=== PATIENT | male | born 1945 | race Caucasian/White ===

== ENCOUNTER 2018-10-01 07:56 | Outpatient (CLI) | payer MEDICARE | END 2018-10-01 07:57 | disposition critical access hospital (66) | LOC: EMS 07:56 | PROVIDERS: ATTEND Surgery | DX: R41.82 Altered mental status, unspecified (principal) | CPT/HCPCS: A0425; A0429 ==

== ENCOUNTER 2018-10-01 08:13 | Inpatient (IN) | payer MEDICAID, MEDICARE ==
[2018-10-01] MEDS ORDERED: TETANUS/DIPHTHERIA/PERTUSSIS 0.5 ML SYRINGE IM ONE (08:23)
[2018-10-01] MEDS ORDERED: LORazepam 2 MG/ML VIAL ONE (08:40)
[2018-10-01] MEDS ORDERED: LORazepam 2 MG/ML VIAL IVP STA (08:56)
--- NOTE | 2018-10-01 09:15 | ED Physician Documentation ---
PD HPI SEIZURE - Stated complaint Stated Complaint: GLF, R EYE LAC - Chief complaint Chief Complaint: Neuro - History obtained from History obtained from: Patient, Family (Nephew), EMS - History of Present Illness Timing - onset: Today (Just prior to arrival.) Witnessed: Witnessed (by nephew.) Number of seizures: Single, Lasted minutes (1) Description of seizure activity: Generalized, Postictal Injury during seizure: Fell, Head injury (eyebrow laceration) History of seizures: Known seizure disorder - Additional information Additional information: The patient is a 73-year-old male with a history of seizure disorder, on Keppra, who was found seizing this morning with generalized tonic-clonic activity after his nephew heard a thud in the bathroom. The patient had fallen to the floor, and was wedged between the commode and the bathtub,, with bleeding from a wound to his eyebrow. His nephew states the seizure resolved within 1 minute. When paramedics arrived they found the patient post ictal. There was no urinary incontinence. It is unknown whether the patient has been taking his Keppra. He was recently moved to [facility] from [place] by family. He has a history of drinking alcohol, but his nephew states he has not had alcohol recently. Review of his medical records reveals emergency department visit in 2016 for seizure. He had not been taking his Keppra at that time. Review of Systems Unable to obtain: Other (post ictal) Neurologic: reports: Seizure, Head injury PD PAST MEDICAL HISTORY - Past Medical History Past Medical History: Yes Neuro: Seizure disorder - Present Medications Home Medications: Ambulatory Orders Medication Instructions Recorded Confirmed Simvastatin 0 mg PO 04/17/16 levETIRAcetam [Keppra] 500 mg 04/17/16 Aspirin 0 mg PO 10/01/18 - Allergies Allergies/Adverse Reactions: Allergies Allergy/AdvReac Type Severity Reaction Status Date / Time No Known Drug Allergies Allergy Verified 10/01/18 08:24 - Social History Does the pt smoke?: Yes Smoking Status: Current every day smoker Substance Use and Type: Marijuana PD ED PE NORMAL - Vitals Vital signs reviewed: Yes (hypertensive) - General General: Well developed/nourished, Other (Drowsy and confused, consistent with being post ictal.) - HEENT HEENT: PERRL, EOMI, Moist mucous membranes, Other (3 cm lac right eyebrow.) - Neck Neck: No bony TTP, Other (In C-spine collar.) - Cardiac Cardiac: RRR - Respiratory Respiratory: No respiratory distress, Clear bilaterally - Abdomen Abdomen: Soft, Non tender - Back Back: No spinal TTP - Derm Derm: No rash - Extremities Extremities: No tenderness to palpate, No edema - Neuro Neuro: Other (Drowsy and confused, consistent with postictal state. Moving all extremities. Has a tendency to gaze to the right, but will look to the left.) Eye Opening: Spontaneous Motor: Obeys Commands Verbal: Confused GCS Score: 14 Results - Vitals Vitals: Vital Signs - 24 hr 10/01/18 10/01/18 10/01/18 08:15 08:19 09:00 Temperature 35.9 C L Heart Rate 91 104 H Respiratory 20 20 Rate Blood Pressure 168/108 H 168/108 H 174/99 H O2 Saturation 96 97 10/01/18 10/01/18 10/01/18 09:24 09:30 10:00 Temperature Heart Rate 99 104 H 92 Respiratory 16 20 18 Rate Blood Pressure 174/99 H 176/92 H 156/94 H O2 Saturation 94 96 95 10/01/18 10/01/18 10/01/18 10:30 11:00 11:30 Temperature Heart Rate 92 96 96 Respiratory 18 16 20 Rate Blood Pressure 174/100 H 167/92 H O2 Saturation 98 96 10/01/18 12:30 Temperature Heart Rate 90 Respiratory 20 Rate Blood Pressure 160/88 H O2 Saturation 96 Oxygen O2 Source Room air - EKG (time done) 09:02 Rate: Rate (enter#) (104) Rhythm: Sinus tachycardia, Other (Incomplete IVCD.) [place]: RAD Intervals: Normal IN QRS: Normal Ischemia: Normal ST segments Computer interpretation: Agree with computer - Labs Labs: Laboratory Tests 10/01/18 10/01/18 10/01/18 08:59 08:59 08:59 WBC 30.1 H RBC 4.52 L Hgb 14.5 Hct 44.5 MCV 98.4 H MCH 32.1 H MCHC 32.7 RDW 13.4 Plt Count 326 MPV 9.6 Neut # (Auto) Not Reportable Lymph # (Auto) Not Reportable [place] # (Auto) Not Reportable Eos # (Auto) Not Reportable Baso # (Auto) Not Reportable Absolute Nucleated RBC Not Reportable Total Counted 100 Band Neuts % (Manual) 5 Abnorm Lymph % (Manual) 0 Nucleated RBC % Not Reportable Neutrophils # (Manual) 27.1 H Lymphocytes # (Manual) 0.9 L Monocytes # (Manual) 2.1 H Eosinophils # (Manual) 0.0 Basophils # (Manual) 0.0 Differential Comment MANUAL DIFFERENTIAL WBC Morphology 1+ VACUOLATION Sodium 140 Potassium 3.5 Chloride 105 Carbon Dioxide 14 L Anion Gap 21.0 H BUN 23 H Creatinine 1.5 H Estimated GFR (MDRD) 46 L Glucose 177 H Calcium 9.1 Magnesium 2.7 Total Bilirubin 0.8 AST 38 ALT 22 Alkaline Phosphatase 107 Total Protein 8.0 Albumin 4.5 Globulin 3.5 Albumin/Globulin Ratio 1.3 Lipase 42 Free T4 Free T3 pg/mL Urine Color Urine Clarity Urine pH Ur Specific [place] Urine Protein Urine Glucose (UA) Urine Ketones Urine Occult Blood Urine Nitrite Urine Bilirubin Urine Urobilinogen Ur Leukocyte Esterase Urine RBC Urine WBC Ur Squamous Epith Cells Urine Crystals Amorphous Sediment Urine Bacteria Urine Casts Urine Mucus Ur Microscopic Review Urine Culture Comments Ethyl Alcohol < 5.0 10/01/18 10/01/18 10/01/18 08:59 08:59 09:05 WBC RBC Hgb Hct MCV MCH MCHC RDW Plt Count MPV Neut # (Auto) Lymph # (Auto) [place] # (Auto) Eos # (Auto) Baso # (Auto) Absolute Nucleated RBC Total Counted Band Neuts % (Manual) Abnorm Lymph % (Manual) Nucleated RBC % Neutrophils # (Manual) Lymphocytes # (Manual) Monocytes # (Manual) Eosinophils # (Manual) Basophils # (Manual) Differential Comment WBC Morphology Sodium Potassium Chloride Carbon Dioxide Anion Gap BUN Creatinine Estimated GFR (MDRD) Glucose Calcium Magnesium Total Bilirubin AST ALT Alkaline Phosphatase Total Protein Albumin Globulin Albumin/Globulin Ratio Lipase Free T4 0.81 Free T3 pg/mL 3.35 Urine Color YELLOW Urine Clarity HAZY Urine pH 5.0 Ur Specific [place] >=1.030 H Urine Protein 30 H Urine Glucose (UA) 250 H Urine Ketones TRACE Urine Occult Blood SMALL H Urine Nitrite NEGATIVE Urine Bilirubin NEGATIVE Urine Urobilinogen 0.2 (NORMAL) Ur Leukocyte Esterase NEGATIVE Urine RBC 0-5 Urine WBC 0-3 Ur Squamous Epith Cells RARE Squamous Urine Crystals >50 Uric Acid Amorphous Sediment Few Urine Bacteria Few Urine Casts 6-10 Granular Casts Urine Mucus Few Strands Ur Microscopic Review INDICATED Urine Culture Comments NOT INDICATED Ethyl Alcohol - Rads (name of study) Head CT Radiology: Prelim report reviewed, EMP read contemporaneously, See rad report (No acute intracranial hemorrhage. No displaced skull fracture. Swelling and hematoma consistent with acute injury in the superficial soft tissues anteriorly on the right. 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 No: FB identified Skin layer closure: Nylon, Size #-0 - enter number (5), Sutures - enter # (6) Other: Patient tolerated well, No complications, Neurovascular intact, Dressing applied, Tetanus booster given Complexity: Simple PD MEDICAL DECISION MAKING - ED course Complexity details: reviewed old records, reviewed results, re-evaluated patient, considered differential, d/w patient, d/w foreign law consultant ED course: The patient's presentation is significant for seizure with head injury from falling in the bathroom. It is unclear whether he fell first and then had a seizure, or had a seizure and then fell. His head CT reveals no evidence of acute intracranial injury or skull fracture. Cervical spine CT reveals no evidence of acute C-spine fracture. The patient has a history of seizure disorder, on Keppra, but it is uncertain whether he has been taking his medication as prescribed. Review of his records reveals that he has a history of poor compliance. According to his nephew he has a history of alcohol use, but it is unknown when his last alcohol intake was. Treatment in the emergency department included administration of Ativan 1 mg IV after the patient had a recurrent seizure while in the emergency department. Keppra 500 mg was administered IV. The wound on his right eyebrow was repaired with 5-0 nylon simple sutures after local anesthetic with lidocaine with epinephrine, and thorough cleaning of the wound. I discussed his condition with Dr. Arndt who accepts him for further evaluation and treatment. Departure - Departure Disposition: [facility] DC/Xfer Clinical Impression: Seizure Fall Qualifiers: Encounter type: initial encounter Qualified Code(s): W19.XXXA - Unspecified fall, initial encounter Laceration of eyebrow Qualifiers: Encounter type: initial encounter Laterality: right Qualified Code(s): S01.111A - Laceration without foreign body of right eyelid and periocular area, initial encounter Condition: Stable Discharge Date/Time: 10/01/18 14:09
[2018-10-01 09:16] LABS: BASOPHILS % (AUTO) 0.4 %; HGB - HEMOGLOBIN 14.5 g/dL (14.0-18.0); LYMPHOCYTES % (AUTO) 4.5 %; MEAN CORPUSCULAR HEMOGLOBIN 32.1 pg (27.0-31.0); MEAN CORPUSCULAR HGB CONC 32.7 g/dL (32.0-36.0); MEAN CORPUSCULAR VOLUME 98.4 fL (80.0-94.0); MEAN PLATELET VOLUME 9.6 fL (7.4-11.4); MONOCYTES % (AUTO) 4.6 %; NEUTROPHILS % (AUTO) 90.5 %; PLT - PLATELET COUNT 326 10^3/uL (130-450); RED BLOOD COUNT 4.52 10^6/uL (4.70-6.10); RED CELL DISTRIBUTION WIDTH 13.4 % (12.0-15.0); WHITE BLOOD COUNT 30.1 x10^3/uL (4.8-10.8)
[2018-10-01 09:26] LABS: ABNORMAL LYMPHS % (MANUAL) 0 %
[2018-10-01 09:28] LABS: BILIRUBIN,URINE NEGATIVE (NEGATIVE); GLUCOSE, URINE (UA) 250 mg/dL (NEGATIVE); KETONES,URINE (UA) TRACE mg/dL (NEGATIVE); LEUKOCYTE ESTERASE, URINE NEGATIVE (NEGATIVE); NITRITE,URINE NEGATIVE (NEGATIVE); OCCULT BLOOD,URINE SMALL (NEGATIVE); PROTEIN,URINE 30 mg/dL (NEGATIVE); UROBILINOGEN,URINE 0.2 (NORMAL) E.U./dL (NORMAL)
[2018-10-01 09:29] LABS: CLARITY,URINE HAZY (CLEAR)
--- NOTE | 2018-10-01 09:39 | CT Report ---
Reason: Fall with head injury and seizures Procedure Date: 10/01/2018 Accession Number: [id number] / [id number] Procedure: CT - Cervical Spine W/O CPT Code: FULL RESULT: EXAM: CT CERVICAL SPINE WITHOUT CONTRAST DATE: 10/01/2018 08:50 AM. HISTORY: Pain post injury after a fall. Seizure. COMPARISONS: No prior cervical spine CT. TECHNIQUE: Thin-section axial images were acquired of the cervical spine without contrast. Post-processing: Coronal and sagittal reformats. Other: None. In accordance with CT protocol optimization, one or more of the following dose reduction techniques were utilized for this exam: automated exposure control, adjustment of mA and/or KV based on patient size, or use of iterative reconstructive technique. FINDINGS: Alignment: 2 mm degenerative anterolisthesis of C5 on C6. Cervical lordosis straightening. Mild kyphotic angulation at C6-C7. Bones: No acute fracture or vertebral body collapse. Diffuse chronic hypertrophic degenerative changes. Interspace Levels/Facets: C1-C2: Moderate to marked hypertrophic degenerative changes around the odontoid process. Soft tissue degenerative pannus is present along the dorsum of the odontoid. There are a few chronic degenerative lucencies of the odontoid process also. Chronic degenerative narrowing of the atlantodental interval. Unremarkable appearing atlantooccipital articulations. At least mild degenerative central canal stenosis. C2-C3: Moderate degenerative disk disease. Mild to moderate left worse than right facet arthropathy. Multifocal degenerative marginal spurring. The osseous contours of the central canal are maintained. Bony foraminal stenosis and deformity is mild on the right but at least moderate if not severe on the left. These findings appear chronic. Small vacuum disk. C3-C4: Chronic moderate severe degenerative disk disease. Bulky anterior spinal calcification. The disk space anteriorly appears fused. Severe facet arthropathy on the left, the left facet joint may be fused. Bony foraminal stenosis is mild on the right but severe on the left. The osseous contours of the central canal are maintained. C4-C5: Mildly narrowed disk space. Bulky anterior marginal spurring. Mild right and moderate left facet arthropathy. The osseous contours of the central canal are maintained. Bony foraminal stenosis is more severe on the left than the right. C5-C6: Moderate degenerative disk disease. Bulky anterior osteophytic spurring. Minimal to mild posterior osteophytic spurring. Focal thickening and ossification of the posterior longitudinal ligament is present in the midline at the posterior margin of the C6 vertebral body creating a mild degree of focal central canal stenosis. Bony foraminal stenosis is mild. C6-C7: Solid chronic intervertebral disk space bony fusion. The osseous contours of the central canal are maintained. Chronic-appearing bony foraminal stenosis bilaterally, mild on the left and moderate to severe on the right. C7-T1: Chronic moderate to severe degenerative disk disease. Anterior and posterior marginal spurring. Uncinate process hypertrophy with moderate bilateral foraminal stenosis. Minimal facet arthropathy. T1-T2: Moderate to marked chronic degenerative disk disease. Prominent anterior marginal spurring. Uncinate process hypertrophy right greater than left. Patent central canal. Bony foraminal stenosis is mild to moderate on the left and moderate to severe on the right. T2-T3: Moderately prominent chronic degenerative changes. Patent bony central canal. Moderate to marked chronic bilateral bony foraminal stenosis. Musculature: Normal. No fatty atrophy. Other: Clear lung apices. No focal prevertebral edema. Note that the soft tissues of the posterior pharynx are indented by bulky osteophytes at C4-C5 and C5-C6. IMPRESSION: 1. No acute fracture or dislocation. 2. 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 [facility]
--- NOTE | 2018-10-01 09:39 | CT Report ---
Reason: Fall with head injury; seizure Procedure Date: 10/01/2018 Accession Number: [id number] / [id number] Procedure: CT - Head W/O CPT Code: FULL RESULT: EXAM: CT HEAD EXAM DATE: 10/01/2018 08:43 AM. CLINICAL HISTORY: Pain post injury after a fall. Seizure. COMPARISON: HEAD W/O 10/01/2018 8:34 AM HEAD W/O 04/17/2016 4:43 PM. TECHNIQUE: Multiaxial CT images were obtained from the foramen magnum to the vertex. Reformats: Sagittal and coronal. IV contrast: None. In accordance with CT protocol optimization, one or more of the following dose reduction techniques were utilized for this exam: automated exposure control, adjustment of mA and/or KV based on patient size, or use of iterative reconstructive technique. FINDINGS: Superficial soft tissue swelling and edema with probable hematoma at and above the level of the right orbit. This is consistent with recent injury. No acute paranasal sinus or mastoid fluid opacity. No displaced fracture. No CT evidence for acute intracranial hemorrhage. No mass effect or midline shift. No hydrocephalus. Stable appearing cerebral volume loss, likely from aging. Again seen are findings of prominent multifocal hypoattenuation of the brain including the deep brain structures consistent with potentially progressive chronic small vessel ischemic disease with multiple lacunar infarcts. Chronic arterial atherosclerotic calcifications. IMPRESSION: 1. No acute intracranial hemorrhage. 2. No displaced skull fracture. 3. Swelling and hematoma consistent with acute injury in the superficial soft tissues anteriorly on the right. 4. 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 [facility]
[2018-10-01 09:41] LABS: AMORPHOUS SEDIMENT,UR Few /LPF; BACTERIA,URINE Few /HPF (None Seen); CRYSTALS,URINE >50 Uric Acid /LPF; MUCUS,URINE Few Strands; RBC,URINE 0-5 /HPF (0-5); SQUAMOUS EPITHELIAL CELL,UR RARE Squamous (<= Few)
[2018-10-01 09:51] LABS: BAND NEUTROPHILS % (MANUAL) 5 %; DIFFERENTIAL COMMENT MANUAL DIFFERENTIAL; LYMPHOCYTES # (MANUAL) 0.9 10^3/uL (1.5-3.5); LYMPHOCYTES % (MANUAL) 3 %; MONOCYTES # (MANUAL) 2.1 10^3/uL (0.0-1.0); NEUTROPHILS # (MANUAL) 27.1 10^3/uL (1.5-6.6); NEUTROPHILS % (MANUAL) 85 %
[2018-10-01] MEDS ORDERED: BACITRACIN OINT TOP ONE (09:53)
[2018-10-01 10:00] LABS: ALBUMIN 4.5 g/dL (3.2-5.5); ALBUMIN/GLOBULIN RATIO 1.3 (1.0-2.2); BILIRUBIN,TOTAL 0.8 mg/dL (0.2-1.0); CALCIUM 9.1 mg/dL (8.5-10.3); CREATININE 1.5 mg/dL (0.6-1.2)
[2018-10-01] MEDS ORDERED: levETIRAcetam INJ 500 MG in SODIUM CHLORIDE 0.9% 100ML 100 ML IV STA (11:41)
[2018-10-01] MEDS ORDERED: SODIUM CHLORIDE FLUSH 0.9% 10 ML SYRINGE IVP PRN (12:49)
[2018-10-01 13:43] LABS: INR 1.1 (0.8-1.2); PT - PROTHROMBIN TIME 12.5 secs (9.9-12.6)
--- NOTE | 2018-10-01 14:08 | HISTORY & PHYSICAL EXAMINATION ---
Chief Complaint - Chief Complaint Chief Complaint: Witnessed seizures Stroke/TIA/Neuro Template - Admitted From Admitted from: ED - History Obtained From Records Reviewed: RN notes reviewed History obtained from: Patient, Family, Other (Dr. Madrigal) Exam limitations: Clinical condition (post-ictal) - History of Present Illness Problem Location Description: Neuro Severity at the worst: reports: Mild Symptom Quality: reports: Slurred speech, Other (post-ictal) HPI Comment/Other: The patient is a 73-year-old male with a history of seizure disorder, on Keppra, who was found seizing this morning with generalized tonic-clonic activity after his nephew heard a thud in the bathroom. The patient had fallen to the floor, and was wedged between the commode and the bathtub,, with bleeding from a wound to his eyebrow. His nephew states the seizure resolved within 1 minute. When paramedics arrived they found the patient post ictal. There was no urinary incontinence. It is unknown whether the patient has been taking his Keppra. He was recently moved to [facility] from [place] by family. He has a history of drinking alcohol, but his nephew states he has not had alcohol recently. Review of his medical records reveals emergency department visit in 2016 for seizure. He had not been taking his Keppra at that time. On initial exam patient was post-ictal and was a poor historian. 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 Will place in obs/tele with neuro checks and start IV keppra and CIWA protocol, IV thiamine and labs to follow. PMH/PSH - Past Medical History Neuro: positive: Seizure disorder Social & Family Hx - Social History Does the pt smoke?: Yes Smoking Status: Current every day smoker Substance Use and Type: Marijuana Meds/Allgy - Home Medications Home Medications: Ambulatory Orders Medication Instructions Recorded Confirmed Simvastatin 0 mg PO 04/17/16 levETIRAcetam [Keppra] 500 mg 04/17/16 Aspirin 0 mg PO 10/01/18 - Allergies Allergies/Adverse Reactions: Allergies Allergy/AdvReac Type Severity Reaction Status Date / Time No Known Drug Allergies Allergy Verified 10/01/18 08:24 Review of Systems - Constitutional Constitutional: denies: Fatigue, Fever, Chills, Malaise, Poor appetite - Eyes Eyes: denies: Pain, Irritation, Amaurosis, Field loss - Ears, Nose & Throat Ears, Nose & Throat: denies: Ear pain, Hearing loss, Tinnitus, Vertigo, Sore throat - Cardiovascular Cariovascular: denies: Irregular heart rate, Palpitations, Chest pain, Edema, Lightheadedness, Syncope, Exertional dyspnea - Respiratory Respiratory: denies: Cough, Sputum production, Wheezing, Snoring, Hemoptysis - Gastrointestinal Gastrointestinal: denies: Abdominal pain, Constipation, Black stools, Bloody stools, Reflux/heartburn - Genitourinary Genitourinary: denies: Dysuria, Frequency, Urgency, Hematuria - Musculoskeletal Musculoskeletal: denies: Muscle pain, Back pain, Muscle aches, Joint swelling - Integumentary Integumentary: denies: Rash, Pruritis, Lesions, Dryness, Lumps - Neurological Neurological: reports: Seizures. denies: General weakness, Focal weakness, Headache, Dizziness, Memory problems - Psychiatric Psychiatric: denies: Depression, Anxiety, Suicidal, Hallucinations, Homicidal - Endocrine Endocrine: denies: Polyuria, Polydypsia, Intolerance to cold - Hematologic/Lymphatic Hematologic/Lymphatic: denies: Anemia - All Other Systems All Other Systems: reports: Reviewed and negative Prior Level of Functionality: Previously independent with ADLs' Exam - Vital Signs Reviewed Vital Signs: Yes Vital Signs: Vital Signs x48h Temp Pulse Resp BP Pulse Ox 10/01/18 11:30 96 20 10/01/18 11:00 96 16 167/92 H 96 10/01/18 10:30 92 18 174/100 H 98 10/01/18 10:00 92 18 156/94 H 95 10/01/18 09:30 104 H 20 176/92 H 96 10/01/18 09:24 99 16 174/99 H 94 10/01/18 09:00 104 H 20 174/99 H 97 10/01/18 08:19 35.9 C L 91 20 168/108 H 96 10/01/18 08:15 168/108 H - Physical Exam General Appearance: positive: No acute distress, Lethargic (Post-ictal), Other Eyes Bilateral: positive: Normal inspection, PERRL, Conjunctivae nml ENT: positive: ENT inspection nml, Pharynx nml, No signs of dehydration Neck: positive: Nml inspection, Thyroid nml, No JVD, Trachea midline. negative: Thyromegaly, Kernig's sign, Brudzinski's sign, Carotid bruit Respiratory: positive: Chest non-tender, No respiratory distress, Breath sounds nml Cardiovascular: positive: Regular rate & rhythm, No murmur, No gallop. negative: Irregularly irregular, JVD present, Gallop/S4 Peripheral Pulses: positive: 2+ Abdomen: positive: Non-tender, No organomegaly, Nml bowel sounds, No distention. negative: Tenderness, Hepatomegaly, Splenomegaly Back: positive: Nml inspection Skin: positive: Color nml, No rash, Warm, Dry, Cyanosis. negative: Pallor Extremities: positive: Non-tender, Full ROM, Nml appearance, No pedal edema. negative: Pedal edema, Joint swelling Neurologic/Psychiatric: positive: CN's nml (2-12), Weakness, Slurred/abnml speech Results - Lab Results Lab results reviewed: Yes Fish Bones: 10/01/18 08:59 10/01/18 08:59 Other Lab Results: Lab Results x24hrs 10/01/18 10/01/18 10/01/18 Range/Units 13:16 13:16 13:16 WBC (4.8-10.8) x10^3/uL RBC (4.70-6.10) 10^6/uL Hgb (14.0-18.0) g/dL Hct (42.0-52.0) % MCV (80.0-94.0) fL MCH (27.0-31.0) pg MCHC (32.0-36.0) g/dL RDW (12.0-15.0) % Plt Count (130-450) 10^3/uL MPV (7.4-11.4) fL Neut # (Auto) Lymph # (Auto) [place] # (Auto) Eos # (Auto) Baso # (Auto) Absolute Nucleated RBC Total Counted Band Neuts % (Manual) (0 - 10) % Abnorm Lymph % (Manual) % Nucleated RBC % Neutrophils # (Manual) (1.5-6.6) 10^3/uL Lymphocytes # (Manual) (1.5-3.5) 10^3/uL Monocytes # (Manual) (0.0-1.0) 10^3/uL Eosinophils # (Manual) (0-0.7) 10^3/uL Basophils # (Manual) (0-0.1) 10^3/uL Differential Comment WBC Morphology (NORMAL) PT 12.5 (9.9-12.6) secs INR 1.1 (0.8-1.2) Sodium (135-145) mmol/L Potassium (3.5-5.0) mmol/L Chloride (101-111) mmol/L Carbon Dioxide (21-32) mmol/L Anion Gap (6-13) BUN (6-20) mg/dL Creatinine (0.6-1.2) mg/dL Estimated GFR (MDRD) (>89) Glucose (70-100) mg/dL Lactic Acid 1.5 (0.5-2.2) mmol/L Calcium (8.5-10.3) mg/dL Total Bilirubin (0.2-1.0) mg/dL AST (10-42) IU/L ALT (10-60) IU/L Alkaline Phosphatase (42-121) IU/L Total Protein (6.7-8.2) g/dL Albumin (3.2-5.5) g/dL Globulin (2.1-4.2) g/dL Albumin/Globulin Ratio (1.0-2.2) Lipase (22-51) U/L TSH 0.54 (0.34-5.60) uIU/mL Urine Color Urine Clarity (CLEAR) Urine pH (5.0-7.5) PH Ur Specific [place] (1.002-1.030) Urine Protein (NEGATIVE) mg/dL Urine Glucose (UA) (NEGATIVE) mg/dL Urine Ketones (NEGATIVE) mg/dL Urine Occult Blood (NEGATIVE) Urine Nitrite (NEGATIVE) Urine Bilirubin (NEGATIVE) Urine Urobilinogen (NORMAL) E.U./dL Ur Leukocyte Esterase (NEGATIVE) Urine RBC (0-5) /HPF Urine WBC (0-3) /HPF Ur Squamous Epith Cells (<= Few) Urine Crystals /LPF Amorphous Sediment /LPF Urine Bacteria (None Seen) /HPF Urine Casts /LPF Urine Mucus Ur Microscopic Review Urine Culture Comments 10/01/18 10/01/18 10/01/18 Range/Units 09:05 08:59 08:59 WBC 30.1 H (4.8-10.8) x10^3/uL RBC 4.52 L (4.70-6.10) 10^6/uL Hgb 14.5 (14.0-18.0) g/dL Hct 44.5 (42.0-52.0) % MCV 98.4 H (80.0-94.0) fL MCH 32.1 H (27.0-31.0) pg MCHC 32.7 (32.0-36.0) g/dL RDW 13.4 (12.0-15.0) % Plt Count 326 (130-450) 10^3/uL MPV 9.6 (7.4-11.4) fL Neut # (Auto) Not Reportable Lymph # (Auto) Not Reportable [place] # (Auto) Not Reportable Eos # (Auto) Not Reportable Baso # (Auto) Not Reportable Absolute Nucleated RBC Not Reportable Total Counted 100 Band Neuts % (Manual) 5 (0 - 10) % Abnorm Lymph % (Manual) 0 % Nucleated RBC % Not Reportable Neutrophils # (Manual) 27.1 H (1.5-6.6) 10^3/uL Lymphocytes # (Manual) 0.9 L (1.5-3.5) 10^3/uL Monocytes # (Manual) 2.1 H (0.0-1.0) 10^3/uL Eosinophils # (Manual) 0.0 (0-0.7) 10^3/uL Basophils # (Manual) 0.0 (0-0.1) 10^3/uL Differential Comment MANUAL DIFFERENTIAL WBC Morphology 1+ VACUOLATION (NORMAL) PT (9.9-12.6) secs INR (0.8-1.2) Sodium 140 (135-145) mmol/L Potassium 3.5 (3.5-5.0) mmol/L Chloride 105 (101-111) mmol/L Carbon Dioxide 14 L (21-32) mmol/L Anion Gap 21.0 H (6-13) BUN 23 H (6-20) mg/dL Creatinine 1.5 H (0.6-1.2) mg/dL Estimated GFR (MDRD) 46 L (>89) Glucose 177 H (70-100) mg/dL Lactic Acid (0.5-2.2) mmol/L Calcium 9.1 (8.5-10.3) mg/dL Total Bilirubin 0.8 (0.2-1.0) mg/dL AST 38 (10-42) IU/L ALT 22 (10-60) IU/L Alkaline Phosphatase 107 (42-121) IU/L Total Protein 8.0 (6.7-8.2) g/dL Albumin 4.5 (3.2-5.5) g/dL Globulin 3.5 (2.1-4.2) g/dL Albumin/Globulin Ratio 1.3 (1.0-2.2) Lipase 42 (22-51) U/L TSH (0.34-5.60) uIU/mL Urine Color YELLOW Urine Clarity HAZY (CLEAR) Urine pH 5.0 (5.0-7.5) PH Ur Specific [place] >=1.030 H (1.002-1.030) Urine Protein 30 H (NEGATIVE) mg/dL Urine Glucose (UA) 250 H (NEGATIVE) mg/dL Urine Ketones TRACE (NEGATIVE) mg/dL Urine Occult Blood SMALL H (NEGATIVE) Urine Nitrite NEGATIVE (NEGATIVE) Urine Bilirubin NEGATIVE (NEGATIVE) Urine Urobilinogen 0.2 (NORMAL) (NORMAL) E.U./dL Ur Leukocyte Esterase NEGATIVE (NEGATIVE) Urine RBC 0-5 (0-5) /HPF Urine WBC 0-3 (0-3) /HPF Ur Squamous Epith Cells RARE Squamous (<= Few) Urine Crystals >50 Uric Acid /LPF Amorphous Sediment Few /LPF Urine Bacteria Few (None Seen) /HPF Urine Casts 6-10 Granular Casts /LPF Urine Mucus Few Strands Ur Microscopic Review INDICATED Urine Culture Comments NOT INDICATED - Diagnostic Imaging Results Diagnostic Imaging Results: positive: Final report reviewed (CT head negative C- spine with no occult fractures) - EKG Results EKG Interpreted Independently: No Impression/Plan - Problem List Problem List: 1. Status epilepticus 2. SIRS 3. ETOH abuse 4. BILL with CKD-2 5. Hyperglycemia 6. Metabolic acidosis Plan: Admit to ICU, neurochecks q4, IV keppra 1 g bid, ativan prn for seizures ad CIWA>8, IVF's, Thiamine level, lactic acid, mag, tsh, etoh level, IV thiamine 500 mg daily, LR to run for BILL and for pre-renal azotemia with prior labs showing cr 1.1, appears to be noncompliant as he had moved from here to [place] and recently relocated back with no local PCP. Check uric acid. Continue with med mgmt, DVT/GI ppx. Core Measures - Anticipated LOS I expect patient to be DC'd or transferred within 96 hours.: Yes - DVT/VTE - Prophylaxis VTE/DVT Device ordered at admit?: No Not Ordered - Medical Reason: Not indicated VTE/DVT Prophylaxis med ordered at admit?: Yes - Stroke - Rehab Assessment Rehab services assessment to be ordered?: No Not Ordered - Medical Reason: Not indicated - AMI - Statin at Admit Aspirin Prescribed on Admit: No Not Ordered - Medical Reason: Not indicated
[2018-10-01] MEDS: LACTATED RINGERS 1,000 ML IV SCH (14:41)
[2018-10-01] MEDS: ENOXAPARIN 40 MG/0.4 ML SYRINGE SUBQ SCH (14:42)
[2018-10-01] MEDS: FAMOTIDINE 20 MG/50 ML 50 ML IV SCH ×2 (14:44→21:36)
[2018-10-01 14:54] LABS: MAGNESIUM 2.7 mg/dL (1.7-2.8)
[2018-10-01] MEDS: levETIRAcetam INJ 1,000 MG in SODIUM CHLORIDE 0.9% 100ML 100 ML IV SCH ×2 (16:09→21:15)
[2018-10-01] MEDS: SODIUM CHLORIDE FLUSH 0.9% 10 ML SYRINGE IVP SCH (16:11)
[2018-10-01] MEDS: LORazepam 2 MG/ML VIAL IVP PRN ×2 (19:37→21:33)
[2018-10-02] MEDS ORDERED: hydrALAZINE INJ 20 MG/ML VIAL IVP PRN ×3 (00:08→10:15)
[2018-10-02] MEDS: LORazepam 2 MG/ML VIAL IVP PRN ×4 (01:35→12:32)
[2018-10-02] MEDS: LACTATED RINGERS 1,000 ML IV SCH (01:36)
[2018-10-02] MEDS: SODIUM CHLORIDE FLUSH 0.9% 10 ML SYRINGE IVP SCH ×3 (01:43→17:08)
[2018-10-02 05:59] LABS: BASOPHILS # (AUTO) 0.1 10^3/uL (0.0-0.1); BASOPHILS % (AUTO) 0.6 %; EOSINOPHILS % (AUTO) 0.1 %; HGB - HEMOGLOBIN 14.6 g/dL (14.0-18.0); LYMPHOCYTES # (AUTO) 2.3 10^3/uL (1.5-3.5); LYMPHOCYTES % (AUTO) 15.5 %; MEAN CORPUSCULAR HEMOGLOBIN 32.2 pg (27.0-31.0); MEAN CORPUSCULAR HGB CONC 33.4 g/dL (32.0-36.0); MEAN CORPUSCULAR VOLUME 96.4 fL (80.0-94.0); MEAN PLATELET VOLUME 9.6 fL (7.4-11.4); MONOCYTES # (AUTO) 1.6 10^3/uL (0.0-1.0); MONOCYTES % (AUTO) 11.2 %; NEUTROPHILS # (AUTO) 10.6 10^3/uL (1.5-6.6); NEUTROPHILS % (AUTO) 72.6 %; PLT - PLATELET COUNT 264 10^3/uL (130-450); RED BLOOD COUNT 4.54 10^6/uL (4.70-6.10); RED CELL DISTRIBUTION WIDTH 12.9 % (12.0-15.0); WHITE BLOOD COUNT 14.6 x10^3/uL (4.8-10.8)
[2018-10-02 07:53] LABS: ALBUMIN 4.2 g/dL (3.2-5.5); CALCIUM 8.7 mg/dL (8.5-10.3); CREATININE 1.1 mg/dL (0.6-1.2); PHOSPHORUS 2.5 mg/dL (2.5-4.6)
[2018-10-02] MEDS ORDERED: cloNIDine 0.2 MG PATCH TOP SCH (08:00)
[2018-10-02] MEDS ORDERED: THIAMINE INJ 500 MG in SODIUM CHLORIDE 0.9% 50 ML IV SCH ×4 (09:00)
[2018-10-02] MEDS ORDERED: TOLTERODINE LA 2 MG CAPSULE PO SCH (09:00)
--- NOTE | 2018-10-02 09:24 | PROVIDER PROGRESS NOTE ---
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) Current Medications - Current Medications Current Medications: Active Medications Clonidine HCl ([id number]) 1 patch TOP Q7D [facility] Last Admin: 10/02/18 07:59 Dose: 1 patch Enoxaparin Sodium (Lovenox) 40 mg SUBQ DAILY [facility] Last Admin: 10/01/18 14:42 Dose: 40 mg Famotidine (Pepcid) 20 mg PO BID [facility] Hydralazine HCl (Apresoline Inj) 10 mg IVP DAILY PRN PRN Reason: Hypertensive Emergency Hydralazine HCl (Apresoline Inj) 10 mg IVP Q4HR PRN PRN Reason: SBP>160 Last Admin: 10/02/18 08:20 Dose: 10 mg Levetiracetam 1,000 mg/ Sodium (Chloride) 110 mls @ 400 mls/hr IV BID [facility] Last Infusion: 10/01/18 21:32 Dose: Infused Thiamine HCl 500 mg/ Sodium (Chloride) 55 mls @ 100 mls/hr IV DAILY [facility] Lorazepam (Ativan Inj (Vial)) 2 mg IVP Q1HR PRN; Protocol PRN Reason: Seizures or CIWA>8 Last Admin: 10/02/18 04:40 Dose: 2 mg Ondansetron HCl (Zofran Inj) 4 mg IVP Q6HR PRN PRN Reason: Nausea / Vomiting Sodium Chloride (Normal Saline Flush 0.9%) 10 ml IVP 0100,0900,1700 [facility] Last Admin: 10/02/18 01:43 Dose: Not Given Sodium Chloride (Normal Saline Flush 0.9%) 10 ml IVP PRN PRN PRN Reason: NEEDED PER PROVIDER ORDERS Last Admin: 10/01/18 14:43 Dose: 10 ml Tamsulosin HCl (Flomax) 0.4 mg PO DAILY [facility] No Known Home Medications 10/02/18 Objective - Vital Signs/Intake & Output Reviewed Vital Signs: Yes Vital Signs: Vital Signs x48h Temp Pulse Resp BP BP Pulse Ox 10/02/18 08:30 73 23 165/86 H 98 10/02/18 08:25 85 18 157/84 H 98 10/02/18 08:20 82 15 181/109 H 189/116 H 98 10/02/18 08:00 37.2 C 87 20 168/95 H 96 10/02/18 06:57 37.1 C 79 23 161/99 H 95 10/02/18 05:00 37.4 C 93 23 195/77 H 91 L 10/02/18 03:00 37.4 C 72 19 173/91 H 95 Intake & Output: Intake & Output 09/29/18 09/30/18 10/01/18 10/02/18 23:59 23:59 23:59 23:59 Intake Total 963.334 901.666 Output Total 550 950 Balance 413.334 -48.334 - Objective General Appearance: positive: Lethargic, Other (somnolent) Eyes Bilateral: positive: PERRL, Conjunctivae nml, No scleral icterus ENT: positive: Pharynx nml, No signs of dehydration Neck: positive: Nml inspection, Thyroid nml, No JVD. negative: Thyromegaly, Carotid bruit Respiratory: positive: Chest non-tender, No respiratory distress, Breath sounds nml Cardiovascular: positive: Regular rate & rhythm, No murmur, No gallop. negative: Irregularly irregular, JVD present Peripheral Pulses: 2+ Dorsalis pedis (R), 2+ Dorsalis pedis (L) Abdomen: positive: Non-tender, No organomegaly, Nml bowel sounds, No distention. negative: Tenderness Skin: positive: Color nml, No rash, Warm Neurologic/Psychiatric: positive: Weakness (limited due to ativan induced somn olensce) Reflexes: Ankle (R): 1+, Ankle (L): 1+ Babinski Reflex: Right: Absent, Left: Absent - Lab Results Fish Bones: 10/02/18 05:16 10/02/18 05:16 Other Labs: Lab Results x24hrs 10/02/18 10/02/18 10/02/18 Range/Units 05:16 05:16 05:16 WBC 14.6 H (4.8-10.8) x10^3/uL RBC 4.54 L (4.70-6.10) 10^6/uL Hgb 14.6 (14.0-18.0) g/dL Hct 43.8 (42.0-52.0) % MCV 96.4 H (80.0-94.0) fL MCH 32.2 H (27.0-31.0) pg MCHC 33.4 (32.0-36.0) g/dL RDW 12.9 (12.0-15.0) % Plt Count 264 (130-450) 10^3/uL MPV 9.6 (7.4-11.4) fL Neut # (Auto) 10.6 H Lymph # (Auto) 2.3 Pine # (Auto) 1.6 H Eos # (Auto) 0.0 Baso # (Auto) 0.1 Absolute Nucleated RBC 0.01 Total Counted Band Neuts % (Manual) (0 - 10) % Abnorm Lymph % (Manual) % Nucleated RBC % 0.1 Neutrophils # (Manual) (1.5-6.6) 10^3/uL Lymphocytes # (Manual) (1.5-3.5) 10^3/uL Monocytes # (Manual) (0.0-1.0) 10^3/uL Eosinophils # (Manual) (0-0.7) 10^3/uL Basophils # (Manual) (0-0.1) 10^3/uL Differential Comment WBC Morphology (NORMAL) PT (9.9-12.6) secs INR (0.8-1.2) Sodium 138 (135-145) mmol/L Potassium 3.5 (3.5-5.0) mmol/L Chloride 104 (101-111) mmol/L Carbon Dioxide 25 (21-32) mmol/L Anion Gap 9.0 (6-13) BUN 18 (6-20) mg/dL Creatinine 1.1 (0.6-1.2) mg/dL Estimated GFR (MDRD) 66 L (>89) Glucose 101 H (70-100) mg/dL Lactic Acid (0.5-2.2) mmol/L Calcium 8.7 (8.5-10.3) mg/dL Phosphorus 2.5 (2.5-4.6) mg/dL Magnesium 2.3 (1.7-2.8) mg/dL Total Bilirubin (0.2-1.0) mg/dL AST (10-42) IU/L ALT (10-60) IU/L Alkaline Phosphatase (42-121) IU/L Total Protein (6.7-8.2) g/dL Albumin 4.2 (3.2-5.5) g/dL Globulin (2.1-4.2) g/dL Albumin/Globulin Ratio (1.0-2.2) Lipase (22-51) U/L TSH (0.34-5.60) uIU/mL Free T4 (0.58-1.64) ng/dL Free T3 pg/mL (2.5-3.9) pg/mL Urine Color Urine Clarity (CLEAR) Urine pH (5.0-7.5) PH Ur Specific [place] (1.002-1.030) Urine Protein (NEGATIVE) mg/dL Urine Glucose (UA) (NEGATIVE) mg/dL Urine Ketones (NEGATIVE) mg/dL Urine Occult Blood (NEGATIVE) Urine Nitrite (NEGATIVE) Urine Bilirubin (NEGATIVE) Urine Urobilinogen (NORMAL) E.U./dL Ur Leukocyte Esterase (NEGATIVE) Urine RBC (0-5) /HPF Urine WBC (0-3) /HPF Ur Squamous Epith Cells (<= Few) Urine Crystals /LPF Amorphous Sediment /LPF Urine Bacteria (None Seen) /HPF Urine Casts /LPF Urine Mucus Ur Microscopic Review Urine Culture Comments Ethyl Alcohol mg/dL MRSA Surveill Initial (NEGATIVE) 10/01/18 10/01/18 10/01/18 Range/Units 14:20 13:16 13:16 WBC (4.8-10.8) x10^3/uL RBC (4.70-6.10) 10^6/uL Hgb (14.0-18.0) g/dL Hct (42.0-52.0) % MCV (80.0-94.0) fL MCH (27.0-31.0) pg MCHC (32.0-36.0) g/dL RDW (12.0-15.0) % Plt Count (130-450) 10^3/uL MPV (7.4-11.4) fL Neut # (Auto) Lymph # (Auto) [place] # (Auto) Eos # (Auto) Baso # (Auto) Absolute Nucleated RBC Total Counted Band Neuts % (Manual) (0 - 10) % Abnorm Lymph % (Manual) % Nucleated RBC % Neutrophils # (Manual) (1.5-6.6) 10^3/uL Lymphocytes # (Manual) (1.5-3.5) 10^3/uL Monocytes # (Manual) (0.0-1.0) 10^3/uL Eosinophils # (Manual) (0-0.7) 10^3/uL Basophils # (Manual) (0-0.1) 10^3/uL Differential Comment WBC Morphology (NORMAL) PT 12.5 (9.9-12.6) secs INR 1.1 (0.8-1.2) Sodium (135-145) mmol/L Potassium (3.5-5.0) mmol/L Chloride (101-111) mmol/L Carbon Dioxide (21-32) mmol/L Anion Gap (6-13) BUN (6-20) mg/dL Creatinine (0.6-1.2) mg/dL Estimated GFR (MDRD) (>89) Glucose (70-100) mg/dL Lactic Acid (0.5-2.2) mmol/L Calcium (8.5-10.3) mg/dL Phosphorus (2.5-4.6) mg/dL Magnesium (1.7-2.8) mg/dL Total Bilirubin (0.2-1.0) mg/dL AST (10-42) IU/L ALT (10-60) IU/L Alkaline Phosphatase (42-121) IU/L Total Protein (6.7-8.2) g/dL Albumin (3.2-5.5) g/dL Globulin (2.1-4.2) g/dL Albumin/Globulin Ratio (1.0-2.2) Lipase (22-51) U/L TSH 0.54 (0.34-5.60) uIU/mL Free T4 (0.58-1.64) ng/dL Free T3 pg/mL (2.5-3.9) pg/mL Urine Color Urine Clarity (CLEAR) Urine pH (5.0-7.5) PH Ur Specific [place] (1.002-1.030) Urine Protein (NEGATIVE) mg/dL Urine Glucose (UA) (NEGATIVE) mg/dL Urine Ketones (NEGATIVE) mg/dL Urine Occult Blood (NEGATIVE) Urine Nitrite (NEGATIVE) Urine Bilirubin (NEGATIVE) Urine Urobilinogen (NORMAL) E.U./dL Ur Leukocyte Esterase (NEGATIVE) Urine RBC (0-5) /HPF Urine WBC (0-3) /HPF Ur Squamous Epith Cells (<= Few) Urine Crystals /LPF Amorphous Sediment /LPF Urine Bacteria (None Seen) /HPF Urine Casts /LPF Urine Mucus Ur Microscopic Review Urine Culture Comments Ethyl Alcohol mg/dL MRSA Surveill Initial NEGATIVE (NEGATIVE) 10/01/18 10/01/18 10/01/18 Range/Units 13:16 09:05 08:59 WBC (4.8-10.8) x10^3/uL RBC (4.70-6.10) 10^6/uL Hgb (14.0-18.0) g/dL Hct (42.0-52.0) % MCV (80.0-94.0) fL MCH (27.0-31.0) pg MCHC (32.0-36.0) g/dL RDW (12.0-15.0) % Plt Count (130-450) 10^3/uL MPV (7.4-11.4) fL Neut # (Auto) Lymph # (Auto) [place] # (Auto) Eos # (Auto) Baso # (Auto) Absolute Nucleated RBC Total Counted Band Neuts % (Manual) (0 - 10) % Abnorm Lymph % (Manual) % Nucleated RBC % Neutrophils # (Manual) (1.5-6.6) 10^3/uL Lymphocytes # (Manual) (1.5-3.5) 10^3/uL Monocytes # (Manual) (0.0-1.0) 10^3/uL Eosinophils # (Manual) (0-0.7) 10^3/uL Basophils # (Manual) (0-0.1) 10^3/uL Differential Comment WBC Morphology (NORMAL) PT (9.9-12.6) secs INR (0.8-1.2) Sodium (135-145) mmol/L Potassium (3.5-5.0) mmol/L Chloride (101-111) mmol/L Carbon Dioxide (21-32) mmol/L Anion Gap (6-13) BUN (6-20) mg/dL Creatinine (0.6-1.2) mg/dL Estimated GFR (MDRD) (>89) Glucose (70-100) mg/dL Lactic Acid 1.5 (0.5-2.2) mmol/L Calcium (8.5-10.3) mg/dL Phosphorus (2.5-4.6) mg/dL Magnesium (1.7-2.8) mg/dL Total Bilirubin (0.2-1.0) mg/dL AST (10-42) IU/L ALT (10-60) IU/L Alkaline Phosphatase (42-121) IU/L Total Protein (6.7-8.2) g/dL Albumin (3.2-5.5) g/dL Globulin (2.1-4.2) g/dL Albumin/Globulin Ratio (1.0-2.2) Lipase (22-51) U/L TSH (0.34-5.60) uIU/mL Free T4 0.81 (0.58-1.64) ng/dL Free T3 pg/mL (2.5-3.9) pg/mL Urine Color YELLOW Urine Clarity HAZY (CLEAR) Urine pH 5.0 (5.0-7.5) PH Ur Specific [place] >=1.030 H (1.002-1.030) Urine Protein 30 H (NEGATIVE) mg/dL Urine Glucose (UA) 250 H (NEGATIVE) mg/dL Urine Ketones TRACE (NEGATIVE) mg/dL Urine Occult Blood SMALL H (NEGATIVE) Urine Nitrite NEGATIVE (NEGATIVE) Urine Bilirubin NEGATIVE (NEGATIVE) Urine Urobilinogen 0.2 (NORMAL) (NORMAL) E.U./dL Ur Leukocyte Esterase NEGATIVE (NEGATIVE) Urine RBC 0-5 (0-5) /HPF Urine WBC 0-3 (0-3) /HPF Ur Squamous Epith Cells RARE Squamous (<= Few) Urine Crystals >50 Uric Acid /LPF Amorphous Sediment Few /LPF Urine Bacteria Few (None Seen) /HPF Urine Casts 6-10 Granular Casts /LPF Urine Mucus Few Strands Ur Microscopic Review INDICATED Urine Culture Comments NOT INDICATED Ethyl Alcohol mg/dL MRSA Surveill Initial (NEGATIVE) 10/01/18 10/01/18 10/01/18 Range/Units 08:59 08:59 08:59 WBC (4.8-10.8) x10^3/uL RBC (4.70-6.10) 10^6/uL Hgb (14.0-18.0) g/dL Hct (42.0-52.0) % MCV (80.0-94.0) fL MCH (27.0-31.0) pg MCHC (32.0-36.0) g/dL RDW (12.0-15.0) % Plt Count (130-450) 10^3/uL MPV (7.4-11.4) fL Neut # (Auto) Lymph # (Auto) [place] # (Auto) Eos # (Auto) Baso # (Auto) Absolute Nucleated RBC Total Counted Band Neuts % (Manual) (0 - 10) % Abnorm Lymph % (Manual) % Nucleated RBC % Neutrophils # (Manual) (1.5-6.6) 10^3/uL Lymphocytes # (Manual) (1.5-3.5) 10^3/uL Monocytes # (Manual) (0.0-1.0) 10^3/uL Eosinophils # (Manual) (0-0.7) 10^3/uL Basophils # (Manual) (0-0.1) 10^3/uL Differential Comment WBC Morphology (NORMAL) PT (9.9-12.6) secs INR (0.8-1.2) Sodium 140 (135-145) mmol/L Potassium 3.5 (3.5-5.0) mmol/L Chloride 105 (101-111) mmol/L Carbon Dioxide 14 L (21-32) mmol/L Anion Gap 21.0 H (6-13) BUN 23 H (6-20) mg/dL Creatinine 1.5 H (0.6-1.2) mg/dL Estimated GFR (MDRD) 46 L (>89) Glucose 177 H (70-100) mg/dL Lactic Acid (0.5-2.2) mmol/L Calcium 9.1 (8.5-10.3) mg/dL Phosphorus (2.5-4.6) mg/dL Magnesium 2.7 (1.7-2.8) mg/dL Total Bilirubin 0.8 (0.2-1.0) mg/dL AST 38 (10-42) IU/L ALT 22 (10-60) IU/L Alkaline Phosphatase 107 (42-121) IU/L Total Protein 8.0 (6.7-8.2) g/dL Albumin 4.5 (3.2-5.5) g/dL Globulin 3.5 (2.1-4.2) g/dL Albumin/Globulin Ratio 1.3 (1.0-2.2) Lipase 42 (22-51) U/L TSH (0.34-5.60) uIU/mL Free T4 (0.58-1.64) ng/dL Free T3 pg/mL 3.35 (2.5-3.9) pg/mL Urine Color Urine Clarity (CLEAR) Urine pH (5.0-7.5) PH Ur Specific [place] (1.002-1.030) Urine Protein (NEGATIVE) mg/dL Urine Glucose (UA) (NEGATIVE) mg/dL Urine Ketones (NEGATIVE) mg/dL Urine Occult Blood (NEGATIVE) Urine Nitrite (NEGATIVE) Urine Bilirubin (NEGATIVE) Urine Urobilinogen (NORMAL) E.U./dL Ur Leukocyte Esterase (NEGATIVE) Urine RBC (0-5) /HPF Urine WBC (0-3) /HPF Ur Squamous Epith Cells (<= Few) Urine Crystals /LPF Amorphous Sediment /LPF Urine Bacteria (None Seen) /HPF Urine Casts /LPF Urine Mucus Ur Microscopic Review Urine Culture Comments Ethyl Alcohol < 5.0 mg/dL MRSA Surveill Initial (NEGATIVE) 10/01/18 Range/Units 08:59 WBC 30.1 H (4.8-10.8) x10^3/uL RBC 4.52 L (4.70-6.10) 10^6/uL Hgb 14.5 (14.0-18.0) g/dL Hct 44.5 (42.0-52.0) % MCV 98.4 H (80.0-94.0) fL MCH 32.1 H (27.0-31.0) pg MCHC 32.7 (32.0-36.0) g/dL RDW 13.4 (12.0-15.0) % Plt Count 326 (130-450) 10^3/uL MPV 9.6 (7.4-11.4) fL Neut # (Auto) Not Reportable Lymph # (Auto) Not Reportable [place] # (Auto) Not Reportable Eos # (Auto) Not Reportable Baso # (Auto) Not Reportable Absolute Nucleated RBC Not Reportable Total Counted 100 Band Neuts % (Manual) 5 (0 - 10) % Abnorm Lymph % (Manual) 0 % Nucleated RBC % Not Reportable Neutrophils # (Manual) 27.1 H (1.5-6.6) 10^3/uL Lymphocytes # (Manual) 0.9 L (1.5-3.5) 10^3/uL Monocytes # (Manual) 2.1 H (0.0-1.0) 10^3/uL Eosinophils # (Manual) 0.0 (0-0.7) 10^3/uL Basophils # (Manual) 0.0 (0-0.1) 10^3/uL Differential Comment MANUAL DIFFERENTIAL WBC Morphology 1+ VACUOLATION (NORMAL) PT (9.9-12.6) secs INR (0.8-1.2) Sodium (135-145) mmol/L Potassium (3.5-5.0) mmol/L Chloride (101-111) mmol/L Carbon Dioxide (21-32) mmol/L Anion Gap (6-13) BUN (6-20) mg/dL Creatinine (0.6-1.2) mg/dL Estimated GFR (MDRD) (>89) Glucose (70-100) mg/dL Lactic Acid (0.5-2.2) mmol/L Calcium (8.5-10.3) mg/dL Phosphorus (2.5-4.6) mg/dL Magnesium (1.7-2.8) mg/dL Total Bilirubin (0.2-1.0) mg/dL AST (10-42) IU/L ALT (10-60) IU/L Alkaline Phosphatase (42-121) IU/L Total Protein (6.7-8.2) g/dL Albumin (3.2-5.5) g/dL Globulin (2.1-4.2) g/dL Albumin/Globulin Ratio (1.0-2.2) Lipase (22-51) U/L TSH (0.34-5.60) uIU/mL Free T4 (0.58-1.64) ng/dL Free T3 pg/mL (2.5-3.9) pg/mL Urine Color Urine Clarity (CLEAR) Urine pH (5.0-7.5) PH Ur Specific [place] (1.002-1.030) Urine Protein (NEGATIVE) mg/dL Urine Glucose (UA) (NEGATIVE) mg/dL Urine Ketones (NEGATIVE) mg/dL Urine Occult Blood (NEGATIVE) Urine Nitrite (NEGATIVE) Urine Bilirubin (NEGATIVE) Urine Urobilinogen (NORMAL) E.U./dL Ur Leukocyte Esterase (NEGATIVE) Urine RBC (0-5) /HPF Urine WBC (0-3) /HPF Ur Squamous Epith Cells (<= Few) Urine Crystals /LPF Amorphous Sediment /LPF Urine Bacteria (None Seen) /HPF Urine Casts /LPF Urine Mucus Ur Microscopic Review Urine Culture Comments Ethyl Alcohol mg/dL MRSA Surveill Initial (NEGATIVE) ABX Reporting Has patient been on IV antibiotics over the past 48 hours?: No Sepsis Event Note (H) - Evaluation Current Stage of Sepsis: Ruled out Assessment/Plan - Problem List (1) Seizure disorder Impression: Patient p/w status eplipticus and was found down with laceration to right forehead with bruising. Has not had any seizures since ED. 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 Would place on IVF's for now and allow patient to sleep off effects, neurochecks to continue, aspiration precautions remains on IV keppra with a level pending as patient was lost to follow up due to recently [place], as well as ETOh abuse which lowers seizure threshold. (2) Leukocytosis Impression: Improved likely sec to uncontrolled seizures. No signs or sx's of infection, LA normal, blood cultures to follow. (3) BILL (acute kidney injury) Impression: Improved, UA shows uric acid crystals has underlying CKD stage 2. Continue with IVF's, avoid nephrotioxic agents. Correct lytes. (4) HTN (hypertension), malignant Impression: HTN excursions maybe related to early etoh withdrawals although etoh level was unremarkable in ED. On CIWA protocol will only utilize if needed at lower doses. Place on clonidine patch. No delirium tremens noted. Uknown drink amt or last drink time. (6) ETOH abuse Impression: Place on IV bananna bag, transition over to PO MVI once tolerating diet. (7) Somnolence Impression: Ativan induced hypersomnolence sec to overdosing with ATIVAN would re-dose to 1 mg for fpr CIWA>8
[2018-10-02] MEDS: TAMSULOSIN 0.4 MG CAPSULE PO SCH (10:10)
[2018-10-02] MEDS: FAMOTIDINE 20 MG TABLET PO SCH ×2 (10:10→20:46)
[2018-10-02] MEDS: levETIRAcetam INJ 1,000 MG in SODIUM CHLORIDE 0.9% 100ML 100 ML IV SCH (10:11)
[2018-10-02] MEDS: ENOXAPARIN 40 MG/0.4 ML SYRINGE SUBQ SCH (10:14)
[2018-10-02] MEDS: MULTIVITAMIN 10 ML, FOLIC ACID INJ 1 MG, THIAMINE INJ 100 MG, MAGNESIUM SULFATE 2 GM in... IV SCH ×5 (11:47)
[2018-10-02] MEDS: ONDANSETRON 4 MG/2 ML VIAL IVP PRN ×2 (13:52→20:49)
[2018-10-02] MEDS ORDERED: METOPROLOL 5 MG/5 ML VIAL IVP PRN (15:24)
[2018-10-02] MEDS ORDERED: ACETAMINOPHEN 650 MG SUPP PR PRN (15:25)
[2018-10-02] MEDS ORDERED: levETIRAcetam INJ 750 MG in SODIUM CHLORIDE 0.9% 100ML 100 ML IV SCH (21:00)
[2018-10-03] MEDS: chlordiazePOXIDE 5 MG CAPSULE PO PRN ×2 (00:59→08:20)
[2018-10-03] MEDS: SODIUM CHLORIDE FLUSH 0.9% 10 ML SYRINGE IVP SCH ×3 (04:09→16:55)
[2018-10-03 05:58] LABS: ALBUMIN 3.9 g/dL (3.2-5.5); CALCIUM 8.4 mg/dL (8.5-10.3); CREATININE 1.1 mg/dL (0.6-1.2); PHOSPHORUS 2.8 mg/dL (2.5-4.6)
[2018-10-03 06:16] LABS: BASOPHILS % (AUTO) 0.2 %; EOSINOPHILS # (AUTO) 0.1 10^3/uL (0.0-0.7); EOSINOPHILS % (AUTO) 0.4 %; HGB - HEMOGLOBIN 13.7 g/dL (14.0-18.0); LYMPHOCYTES % (AUTO) 24.1 %; MEAN CORPUSCULAR HEMOGLOBIN 31.9 pg (27.0-31.0); MEAN CORPUSCULAR VOLUME 96.7 fL (80.0-94.0); MEAN PLATELET VOLUME 9.6 fL (7.4-11.4); MONOCYTES # (AUTO) 1.4 10^3/uL (0.0-1.0); MONOCYTES % (AUTO) 11.5 %; NEUTROPHILS # (AUTO) 7.9 10^3/uL (1.5-6.6); NEUTROPHILS % (AUTO) 63.8 %; PLT - PLATELET COUNT 267 10^3/uL (130-450); RED BLOOD COUNT 4.29 10^6/uL (4.70-6.10); RED CELL DISTRIBUTION WIDTH 13.1 % (12.0-15.0); WHITE BLOOD COUNT 12.4 x10^3/uL (4.8-10.8)
[2018-10-03] MEDS ORDERED: POTASSIUM CHLORIDE 20 MEQ TABLET PO ONE (06:21)
[2018-10-03] MEDS ORDERED: chlordiazePOXIDE 5 MG CAPSULE PO PRN (08:15)
[2018-10-03] MEDS: FAMOTIDINE 20 MG TABLET PO SCH ×2 (08:20→20:53)
[2018-10-03] MEDS: TAMSULOSIN 0.4 MG CAPSULE PO SCH (08:20)
[2018-10-03] MEDS: ENOXAPARIN 40 MG/0.4 ML SYRINGE SUBQ SCH (08:21)
[2018-10-03] MEDS: POLYETHYLENE GLYCOL 3350 17 GM PACKET PO SCH (08:26)
[2018-10-03] MEDS: levETIRAcetam 250 MG TABLET PO SCH ×2 (08:26→20:53)
[2018-10-03] MEDS: MULTIVITAMIN 10 ML, FOLIC ACID INJ 1 MG, THIAMINE INJ 100 MG, MAGNESIUM SULFATE 2 GM in... IV SCH ×5 (09:08)
--- NOTE | 2018-10-03 12:13 | PROVIDER PROGRESS NOTE ---
Subjective - Prog Note Date Prog Note Date: 10/03/18 Prog Note Time: 12:11 - Subjective Pt reports feeling: Improved (Patient ate his breakfast today and imprved mental status with no seizure events) Current Medications - Current Medications Current Medications: Active Medications Acetaminophen (Tylenol) 650 mg PO Q4HR PRN PRN Reason: Pain or Fever > 38C (100.4F) Chlordiazepoxide HCl (Librium) 10 mg PO Q6HR PRN PRN Reason: Alcohol Withdrawal Clonidine HCl ([id number]) 1 patch TOP Q7D [facility] Last Admin: 10/02/18 07:59 Dose: 1 patch Enoxaparin Sodium (Lovenox) 40 mg SUBQ DAILY [facility] Last Admin: 10/03/18 08:21 Dose: 40 mg Famotidine (Pepcid) 20 mg PO BID [facility] Last Admin: 10/03/18 08:20 Dose: 20 mg Folic Acid () 1 mg PO DAILY [facility] Hydralazine HCl (Apresoline Inj) 10 mg IVP DAILY PRN PRN Reason: Hypertensive Emergency Hydralazine HCl (Apresoline Inj) 20 mg IVP Q4HR PRN PRN Reason: SBP>180 Last Admin: 10/02/18 13:11 Dose: 20 mg Levetiracetam (Keppra) 750 mg PO BID [facility] Last Admin: 10/03/18 08:26 Dose: 750 mg Magnesium Oxide (Mag Ox) 400 mg PO DAILYWM [facility] Metoprolol Tartrate (Lopressor Inj) 5 mg IVP Q4HR PRN PRN Reason: SBP>160 or HR>120 Last Admin: 10/02/18 17:10 Dose: 5 mg Metoprolol Tartrate (Lopressor) 12.5 mg PO BID [facility] Multivitamins/Minerals (Theragran M) 1 tab PO DAILYWM [facility] Ondansetron HCl (Zofran Inj) 4 mg IVP Q6HR PRN PRN Reason: Nausea / Vomiting Last Admin: 10/02/18 20:49 Dose: 4 mg Polyethylene Glycol (Miralax) 17 gm PO DAILY [facility] Last Admin: 10/03/18 08:26 Dose: 17 gm Potassium Chloride (K-Dur) 20 meq PO BIDWM [facility] Sodium Chloride (Normal Saline Flush 0.9%) 10 ml IVP 0100,0900,1700 [facility] Last Admin: 02/10/19 08:21 Dose: 10 ml Sodium Chloride (Normal Saline Flush 0.9%) 10 ml IVP PRN PRN PRN Reason: NEEDED PER PROVIDER ORDERS Last Admin: 10/01/18 14:43 Dose: 10 ml Tamsulosin HCl (Flomax) 0.4 mg PO DAILY [facility] Last Admin: 10/03/18 08:20 Dose: 0.4 mg Thiamine HCl (Vitamin B-1) 100 mg PO DAILY [facility] Aspirin Chewable [St Price Aspirin] 81 mg PO DAILY 10/02/18 Levetiracetam [Keppra] 500 mg PO BID 10/02/18 Multivitamin [Theragran] 1 each PO DAILY 10/02/18 Simvastatin [Zocor] 40 mg PO QPM 10/02/18 Objective - Vital Signs/Intake & Output Reviewed Vital Signs: Yes Vital Signs: Vital Signs x48h Temp Pulse Resp BP Pulse Ox 10/03/18 11:00 37.3 C 90 19 136/86 H 94 10/03/18 10:04 37.7 C H 96 21 127/90 H 96 10/03/18 09:00 37.4 C 98 17 160/90 H 96 10/03/18 08:17 37.2 C 102 H 15 151/90 H 96 10/03/18 07:55 37.4 C 110 H 23 96 10/03/18 07:00 100 19 140/87 H 10/03/18 06:56 101 H 19 140/87 H 96 10/03/18 05:00 92 17 111/77 97 Intake & Output: Intake & Output 09/30/18 10/01/18 10/02/18 10/03/18 23:59 23:59 23:59 23:59 Intake Total 417.564 2952.366 536.667 Output Total 550 1425 525 Balance 253.397 7150.366 11.667 - Objective General Appearance: positive: No acute distress, Alert, Other (mildly confused) Eyes Bilateral: positive: PERRL, EOMI, Other (there is right periorbitalecchymosis and laceration to brow present on admission) ENT: positive: ENT inspection nml, Pharynx nml, No signs of dehydration Neck: positive: Nml inspection, Thyroid nml, No JVD, Trachea midline. negative: Thyromegaly, Carotid bruit Cardiovascular: positive: Regular rate & rhythm, No murmur, No gallop, Tachycardia. negative: JVD present, Gallop/S4 Peripheral Pulses: 2+ Dorsalis pedis (R), 2+ Dorsalis pedis (L) Abdomen: positive: Non-tender, No organomegaly, Nml bowel sounds, No distention. negative: Tenderness Back: positive: Nml inspection Skin: positive: Color nml, No rash, Warm Neurologic/Psychiatric: positive: CN's nml (2-12), Motor nml, Sensation nml, Disoriented to place, Disoriented to time, Depressed mood/affect, Other (Orineted to self only). negative: Facial droop, Slurred/abnml speech Babinski Reflex: Right: Absent, Left: Absent - Lab Results Fish Bones: 10/03/18 05:20 10/03/18 05:20 Other Labs: Lab Results x24hrs 10/03/18 10/03/18 Range/Units 05:20 05:20 WBC 12.4 H (4.8-10.8) x10^3/uL RBC 4.29 L (4.70-6.10) 10^6/uL Hgb 13.7 L (14.0-18.0) g/dL Hct 41.5 L (42.0-52.0) % MCV 96.7 H (80.0-94.0) fL MCH 31.9 H (27.0-31.0) pg MCHC 33.0 (32.0-36.0) g/dL RDW 13.1 (12.0-15.0) % Plt Count 267 (130-450) 10^3/uL MPV 9.6 (7.4-11.4) fL Neut # (Auto) 7.9 H (1.5-6.6) 10^3/uL Lymph # (Auto) 3.0 (1.5-3.5) 10^3/uL [place] # (Auto) 1.4 H (0.0-1.0) 10^3/uL Eos # (Auto) 0.1 (0.0-0.7) 10^3/uL Baso # (Auto) 0.0 (0.0-0.1) 10^3/uL Absolute Nucleated RBC 0.01 x10^3/uL Nucleated RBC % 0.1 /100WBC Sodium 140 (135-145) mmol/L Potassium 3.3 L (3.5-5.0) mmol/L Chloride 106 (101-111) mmol/L Carbon Dioxide 23 (21-32) mmol/L Anion Gap 11.0 (6-13) BUN 24 H (6-20) mg/dL Creatinine 1.1 (0.6-1.2) mg/dL Estimated GFR (MDRD) 66 L (>89) Glucose 110 H (70-100) mg/dL Calcium 8.4 L (8.5-10.3) mg/dL Phosphorus 2.8 (2.5-4.6) mg/dL Albumin 3.9 (3.2-5.5) g/dL ABX Reporting Has patient been on IV antibiotics over the past 48 hours?: No Sepsis Event Note (H) - Evaluation Current Stage of Sepsis: Ruled out Assessment/Plan - Problem List (1) Seizure disorder Impression: Appears to be controlled with no tonic-clonic activity since ED. IV keppra to d/c and transition to oral at 750 mg po bid. Keppra level to follow. ETOh abuse which lowers seizure threshold and perhaps early withdrawals addressed with CIWA protocol with librium and decreased ativan. (2) Leukocytosis Impression: No evidence of infection. Improved likely sec to uncontrolled seizures. LA normal, blood cultures are NGTD so far. Qualifiers: Leukocytosis type: lymphocytosis Qualified Code(s): D72.820 - Lymphocytosis (symptomatic) (3) HTN (hypertension), malignant Impression: HTN excursions maybe related to early etoh withdrawals although etoh level was unremarkable in ED. On CIWA protocol will only utilize if needed at lower doses. Add metoprolol 12.5 mg po bid. Currently on clonidine patch. No delirium tremens noted. Unknown drink amt or last drink time. (4) CKD (chronic kidney disease) stage 2, GFR 60-89 ml/min Impression: Patient is back to baseline. And [place]/BILL resolved. Improved, UA shows uric acid crystals has underlying CKD stage 2. Continue with increased oral intake, avoid nephrotioxic agents. Correct lytes. (5) ETOH abuse Impression: D/c IV bananna bag, transition over to PO MVI as he is tolerating diet. Education, counseling on etoh cessation although not present on admission there is a hx on admission. (6) Hypokalemia Impression: Would provide Kdur to increase stores likely from nutritional deficits, no diarrhea noted. (7) Tachycardia Impression: Maybe sec to etoh withdrawal, on clonidine patch and the addition of metoprolol should control HR>120.
[2018-10-03] MEDS: METOPROLOL TARTRATE 25 MG TABLET PO SCH ×2 (12:32→20:54)
[2018-10-03] MEDS: ACETAMINOPHEN 325 MG TABLET PO PRN ×3 (12:32→20:53)
[2018-10-03] MEDS: MAGNESIUM OXIDE 400 MG TABLET PO SCH (12:32)
[2018-10-03] MEDS: POTASSIUM CHLORIDE 20 MEQ TABLET PO SCH (16:54)
[2018-10-04] MEDS: SODIUM CHLORIDE FLUSH 0.9% 10 ML SYRINGE IVP SCH ×2 (02:36→09:13)
[2018-10-04] MEDS: ACETAMINOPHEN 325 MG TABLET PO PRN ×2 (02:38→09:28)
[2018-10-04 05:55] LABS: BASOPHILS % (AUTO) 0.4 %; EOSINOPHILS # (AUTO) 0.1 10^3/uL (0.0-0.7); EOSINOPHILS % (AUTO) 1.4 %; HGB - HEMOGLOBIN 13.1 g/dL (14.0-18.0); LYMPHOCYTES # (AUTO) 2.2 10^3/uL (1.5-3.5); LYMPHOCYTES % (AUTO) 31.1 %; MEAN CORPUSCULAR HGB CONC 33.5 g/dL (32.0-36.0); MEAN CORPUSCULAR VOLUME 95.7 fL (80.0-94.0); MEAN PLATELET VOLUME 9.5 fL (7.4-11.4); MONOCYTES # (AUTO) 0.7 10^3/uL (0.0-1.0); MONOCYTES % (AUTO) 9.8 %; NEUTROPHILS # (AUTO) 4.1 10^3/uL (1.5-6.6); NEUTROPHILS % (AUTO) 57.3 %; PLT - PLATELET COUNT 237 10^3/uL (130-450); RED BLOOD COUNT 4.09 10^6/uL (4.70-6.10); RED CELL DISTRIBUTION WIDTH 12.6 % (12.0-15.0); WHITE BLOOD COUNT 7.2 x10^3/uL (4.8-10.8)
[2018-10-04 06:08] LABS: ALBUMIN 3.5 g/dL (3.2-5.5); CALCIUM 8.6 mg/dL (8.5-10.3); CREATININE 1.1 mg/dL (0.6-1.2); PHOSPHORUS 2.3 mg/dL (2.5-4.6)
[2018-10-04] MEDS ORDERED: MULTIVITAMIN W/MINERALS TABLET PO SCH (08:00)
[2018-10-04] MEDS ORDERED: FOLIC ACID 1 MG TABLET PO SCH (09:00)
[2018-10-04] MEDS ORDERED: THIAMINE 100 MG TABLET PO SCH (09:00)
[2018-10-04] MEDS: levETIRAcetam 250 MG TABLET PO SCH (09:12)
[2018-10-04] MEDS: POLYETHYLENE GLYCOL 3350 17 GM PACKET PO SCH (09:12)
[2018-10-04] MEDS: TAMSULOSIN 0.4 MG CAPSULE PO SCH (09:12)
[2018-10-04] MEDS: METOPROLOL TARTRATE 25 MG TABLET PO SCH (09:12)
[2018-10-04] MEDS: ENOXAPARIN 40 MG/0.4 ML SYRINGE SUBQ SCH (09:13)
[2018-10-04] MEDS: MAGNESIUM OXIDE 400 MG TABLET PO SCH (09:13)
[2018-10-04] MEDS: POTASSIUM CHLORIDE 20 MEQ TABLET PO SCH (09:13)
[2018-10-04] MEDS: FAMOTIDINE 20 MG TABLET PO SCH (09:13)
[2018-10-04] MEDS ORDERED: guaiFENesin/DEXTROMETHORPHAN 10 ML UDC PO PRN (11:05)
--- NOTE | 2018-10-04 11:50 | Discharge Plan ---
"Discharge Plan for SNF / [facility]UANITA - Discharge Plan And Transition Orders Disposition: 03 SNF DC/Xfer Condition: Good Allergies and Adverse Reactions: Allergies Allergy/AdvReac Type Severity Reaction Status Date / Time No Known Drug Allergies Allergy Verified 10/01/18 08:24 - SNF / FDC Transition Orders Admit to (Facility): [facility] Under the care of (Name): PCP Discharge Diagnosis: (1) Seizure disorder; stable (2) Leukocytosis; resolved (3) HTN (hypertension), malignant; improved (4) CKD (chronic kidney disease) stage 2, GFR 60-89 ml/min (5) ETOH abuse; stable (6) Hypokalemia; resolved (7) Tachycardia; resolved Medicare Certification Statement: I certify that [facility] care is medically necessary on a continuing basis for any of the conditions for which she/he is receiving care during hospitalization. Notify PCP of admission and forward orders to primary provider for signature. Weight on admission and: Daily Other Notification Orders: Call PCP immediately if patient develops dyspnea, chest pain/tightness or edema. House Bowel Program: Yes Additional Bowel Program Orders: If no BM after 2 days, nurse may give M.O.M. 30ml PO PRN and/or ducolax Supp 1 PA and/or MARTHA 250mg P.O., and/or senna 1-2 tabs PO. On day 3 nurse may give repeat above order until residents constipation is resolved. Annual Influenza Vaccine (between Apr 24 and November 21): Yes Two-step PPD per [facility] [phone] or approved exception documents: No Lab Tests or X-ray Orders: Weekly CBC and BMP Medication Orders: PLEASE REFER TO THE DISCHARGE MEDICATION LIST. - Medications New Prescriptions: chlordiazePOXIDE [Librium] 10 mg PO Q6HR PRN 10 Days #80 capsule PRN Reason: Alcohol Withdrawal cloNIDine 0.2 MG PATCH [Kkwrfdnm-Wdu-5] 1 patch TOP Q7D #7 patch levETIRAcetam [Keppra] 750 mg PO BID #180 tablet Metoprolol Tartrate [Lopressor] 12.5 mg PO BID #60 tablet - Diet Type: No added salt Texture: Regular Liquids: Thin May have monthly special meal: Yes - Therapies | Activity Therapy: Evaluation | Treat if indicated: PT Rehabilitation Potential: Maximize functional status, Return to independent living, Maintain present ADL Functional Activity: Activity as Tolerated Weight Bearing: Full Weight Assistance Devices: Walker Additional Instructions: Will have pt follow up with PCP for further care or return if pt worsens. Pt comfortable with plan. Follow Up: PCP in 2-3 weeks"
--- NOTE | 2018-10-04 12:13 | DISCHARGE SUMMARY ---
Discharge Summary Admit Date: 10/01/18 Discharge Date: 10/04/18 Discharging Provider: Dr. Arndt Primary Care Provider: No PCP Code Status: Attempt Resuscitation Condition at Discharge: Good Discharge Disposition: 03 SNF DC/Xfer Discharge Facility Name: [facility] - DIAGNOSES Admission Diagnoses: 1. Status epilepticus 2. SIRS 3. ETOH abuse 4. BILL with CKD-2 5. Hyperglycemia 6. Metabolic acidosis Discharge Diagnoses with Status of Each Condition: (1) Seizure disorder (2) Leukocytosis/SIRS; resolved (3) HTN (hypertension), malignant (4) BILL (resolved/CKD (chronic kidney disease) stage 2, GFR 60-89 ml/min (5) ETOH abuse; stable (6) Hypokalemia; resolved (7) Tachycardia; resolved (8) Metabolic Acidosis; resolved - HPI History of Present Illness: The patient is a 73-year-old male with a history of seizure disorder, on Keppra, who was found seizing this morning with generalized tonic-clonic activity after his nephew heard a thud in the bathroom. The patient had fallen to the floor, and was wedged between the commode and the bathtub,, with bleeding from a wound to his eyebrow. His nephew states the seizure resolved within 1 minute. When paramedics arrived they found the patient post ictal. There was no urinary incontinence. It is unknown whether the patient has been taking his Keppra. He was recently moved to [facility] from [place] by family. He has a history of drinking alcohol, but his nephew states he has not had alcohol recently. Review of his medical records reveals emergency department visit in 2016 for seizure. He had not been taking his Keppra at that time. On initial exam patient was post-ictal and was a poor historian. 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 Will place in obs/tele with neuro checks and start IV keppra and CIWA protocol, IV thiamine and labs to follow. - HOSPITAL COURSE Hospital Course: Patient was admitted for status epilepticus with post-ictal state, dehydration with metabolic acidosis and electrolyte d/o, etoh abuse, leukocytosis w/o of infection or sepsis. CT head and spine were essentially unremarkable, with ETOH level non-toxic. He initially was treated with IV keppra in ED and stabilized, was admitted to ICU with neurochecks q4, contiued on IV keppra 1 g bid then with subsequent conversion to PO keppra 750 mg po bid, was given ativan prn for seizures ad CIWA>8, but showed intermittent drug-induced encephalopathy that this was eventually changed to librium PO prn, IVF's in the form of a banana bag were given, Thiamine level drawn lactic acid, mag and TSH was normal, IV thiamine 500 mg was given daily with conversion to PO once he was tolerating diet and was more lucid. Initially p/w BILL sec to pre-renal azotemia which correted with IVF's. Patient suspected to be noncompliant and admitting was drinking etoh prior to ED although he does not stat how much as he had moved from here to [place] and recently relocated back with no local PCP. Patient was found to have generalized weakness and physical deconditionig that required a PT assessment that deemed to be candidate for SNF plcmt. - ALLERGIES Allergies/Adverse Reactions: Allergies Allergy/AdvReac Type Severity Reaction Status Date / Time No Known Drug Allergies Allergy Verified 10/01/18 08:24 - MEDICATIONS Home Medications: Ambulatory Orders Medication Instructions Recorded Confirmed Aspirin Chewable [St Price 81 mg PO DAILY 10/02/18 10/02/18 Aspirin] Multivitamin [Theragran] 1 each PO DAILY 10/02/18 10/02/18 Simvastatin [Zocor] 40 mg PO QPM 10/02/18 10/02/18 Acetaminophen [Tylenol] 650 mg PO Q4HR PRN tablet 10/04/18 Enoxaparin [Lovenox] 40 mg SUBQ DAILY syringe 10/04/18 Famotidine [Pepcid] 20 mg PO BID tablet 10/04/18 Folic Acid 1 mg PO DAILY tablet 10/04/18 Metoprolol Tartrate [Lopressor] 12.5 mg PO BID #60 tablet 10/04/18 Multivitamin W/Minerals [Theragran 1 tab PO DAILYWM tablet 10/04/18 M] Polyethylene Glycol 3350 [Miralax] 17 gm PO DAILY packet 10/04/18 Potassium Chloride [K-Dur] 20 meq PO BIDWM tablet 10/04/18 Tamsulosin [Flomax] 0.4 mg PO DAILY capsule 10/04/18 Thiamine [Vitamin B-1] 100 mg PO DAILY tablet 10/04/18 chlordiazePOXIDE [Librium] 10 mg PO Q6HR PRN 10 Days #80 10/04/18 capsule cloNIDine 0.2 MG PATCH 1 patch TOP Q7D #7 patch 10/04/18 [Fsbeuvuh-Eec-0] guaiFENesin/DEXTROMETHORPHAN 10 ml PO Q6HR PRN udc 10/04/18 [Robitussin Dm] levETIRAcetam [Keppra] 750 mg PO BID #180 tablet 10/04/18 - PHYSICAL EXAM AT DISCHARGE General Appearance: positive: No acute distress, Alert, Other (mildly confused ) Eyes Bilateral: positive: Normal inspection, PERRL, EOMI, Conjunctivae nml, Other (leceration to right supraorbital region with periorbital ecchymosis ) ENT: positive: ENT inspection nml, Pharynx nml, No signs of dehydration Neck: positive: Nml inspection, Thyroid nml, No JVD, Trachea midline. negative: Thyromegaly Respiratory: positive: Chest non-tender, No respiratory distress, Breath sounds nml Cardiovascular: positive: Regular rate & rhythm, No murmur, No gallop. negative: Irregularly irregular Peripheral Pulses: positive: 2+ Abdomen: positive: Non-tender, No organomegaly, Nml bowel sounds, No distention. negative: Tenderness Back: positive: Nml inspection Skin: positive: Color nml, No rash, Warm Extremities: positive: Non-tender, Full ROM, Nml appearance Neurologic/Psychiatric: positive: Oriented x3, CN's nml (2-12). negative: Facial droop, Slurred/abnml speech, Depressed mood/affect - LABS Result Diagrams: 10/04/18 05:15 10/04/18 05:15 - SEPSIS Current Stage of Sepsis: Ruled out - FOLLOW UP Follow Up: PCP in 2-3 weeks - TIME SPENT Time Spent in Discharge (Minutes): 35
[2018-10-04 16:33] VITALS: BP 135/69
== END 2018-10-04 16:00 | DRG 100 ==
LOC: EDUNIT# → ED 08:13 → ICU 12:49 → MS2 10-03 23:50
PROVIDERS: ADMIT Family Medicine; ATTEND Family Medicine
PROC: 0HQ1XZZ Repair Face Skin, External Approach (ICD-10-PCS; principal; 2018-10-01)
DX: G40.909 Epilepsy, unspecified, not intractable, without status epilepticus (principal); G92 Toxic encephalopathy; S01.111A Laceration without foreign body of right eyelid and periocular area, initial encounter; F17.200 Nicotine dependence, unspecified, uncomplicated; W18.30XA Fall on same level, unspecified, initial encounter; R65.10 Systemic inflammatory response syndrome (SIRS) of non-infectious origin without acute organ dysfunction; N17.9 Acute kidney failure, unspecified; E87.2 Acidosis; I12.9 Hypertensive chronic kidney disease with stage 1 through stage 4 chronic kidney disease, or unspecified chronic kidney disease; N18.2 Chronic kidney disease, stage 2 (mild); F10.10 Alcohol abuse, uncomplicated; E87.6 Hypokalemia; R00.0 Tachycardia, unspecified; R73.9 Hyperglycemia, unspecified; E86.0 Dehydration; R40.0 Somnolence; T42.4X1A Poisoning by benzodiazepines, accidental (unintentional), initial encounter; Z91.19 Patient's noncompliance with other medical treatment and regimen
CPT/HCPCS: 12013; 36415; 70450; 72125; 80053; 80069; 80177; 80320; 81001; 81003; 83605; 83690; 83735; 84439; 84443; 84481; 85025; 85610; 87040; 87086; 87150; 90471; 93005; 96365; 96375; 99285

== ENCOUNTER 2019-09-01 20:29 | Outpatient (CLI) | payer MEDICARE | END 2019-09-01 20:30 | disposition EMS.NT | LOC: EMS 20:29 | PROVIDERS: ATTEND Surgery | DX: M54.2 Cervicalgia (principal); Z91.81 History of falling ==

== ENCOUNTER 2019-09-12 16:22 | Outpatient (CLI) | payer MEDICARE | END 2019-09-12 16:23 | disposition critical access hospital (66) | LOC: EMS 16:22 | PROVIDERS: ATTEND Surgery | DX: R56.9 Unspecified convulsions (principal) | CPT/HCPCS: A0425; A0429 ==

== ENCOUNTER 2019-09-12 16:39 | Emergency (ER) | payer MEDICARE ==
--- NOTE | 2019-09-12 16:45 | ED Physician Documentation ---
PD HPI ALTERED MENTAL STATUS - Stated complaint Stated Complaint: SZ/FALL - History obtained from History obtained from: Patient, EMS - History of Present Illness Timing - onset: Today (This is a 74-year-old gentleman who goes by "Larry." Has a history of seizure disorder and is maintained on Keppra for same. Reportedly had a seizure today, it sounds like he was in the bathroom on the toilet and the caregiver found him still seizing, brought in by ambulance. He is still postictal. He has no complaints but is altered. It is unclear when his last seizure was, his caregiver does not accompany him on initial arrival. He is maintained in C-spine precautions on arrival pending imaging given altered) Review of Systems Unable to obtain: Confused PD PAST MEDICAL HISTORY - Past Medical History Cardiovascular: None Respiratory: None Neuro: Seizure disorder Endocrine/Autoimmune: None GI: None : None HEENT: None Psych: None Musculoskeletal: None Derm: None - Present Medications Home Medications: Ambulatory Orders Medication Instructions Recorded Confirmed Aspirin Chewable [St Price 81 mg PO DAILY 10/02/18 10/02/18 Aspirin] Multivitamin [Theragran] 1 each PO DAILY 10/02/18 10/02/18 Simvastatin [Zocor] 40 mg PO QPM 10/02/18 10/02/18 Acetaminophen [Tylenol] 650 mg PO Q4HR PRN tablet 10/04/18 Enoxaparin [Lovenox] 40 mg SUBQ DAILY syringe 10/04/18 Famotidine [Pepcid] 20 mg PO BID tablet 10/04/18 Folic Acid 1 mg PO DAILY tablet 10/04/18 Metoprolol Tartrate [Lopressor] 12.5 mg PO BID #60 tablet 10/04/18 Multivitamin W/Minerals [Theragran 1 tab PO DAILYWM tablet 10/04/18 M] Potassium Chloride [K-Dur] 20 meq PO BIDWM tablet 10/04/18 Tamsulosin [Flomax] 0.4 mg PO DAILY capsule 10/04/18 Thiamine [Vitamin B-1] 100 mg PO DAILY tablet 10/04/18 chlordiazePOXIDE [Librium] 10 mg PO Q6HR PRN 10 Days #80 10/04/18 capsule cloNIDine 0.2 MG PATCH 1 patch TOP Q7D #7 patch 10/04/18 [Vycycdrt-Vbb-0] guaiFENesin/DEXTROMETHORPHAN 10 ml PO Q6HR PRN udc 10/04/18 [Robitussin Dm] levETIRAcetam [Keppra] 750 mg PO BID #180 tablet 10/04/18 polyethylene glycoL 3350 [Miralax] 17 gm PO DAILY packet 10/04/18 - Allergies Allergies/Adverse Reactions: Allergies Allergy/AdvReac Type Severity Reaction Status Date / Time No Known Drug Allergies Allergy Verified 10/01/18 08:24 - Social History Does the pt smoke?: Yes Smoking Status: Current every day smoker PD ED PE NORMAL - Vitals Vital signs reviewed: Yes - General General: Other (He is alert and oriented to person, not place time or events. He does follow simple commands.) - HEENT HEENT: PERRL, EOMI - Neck Neck: No bony TTP (But maintained in c-collar pending imaging given altered mental status) - Cardiac Cardiac: RRR, No murmur - Respiratory Respiratory: No respiratory distress, Clear bilaterally - Abdomen Abdomen: Non tender - Extremities Extremities: Other (Some scrapes on the dorsa of both hands, nontender. The hip itself on the right is nontender but he does have some pain with movement of that leg.) - Neuro Neuro: No motor deficit, No sensory deficit Eye Opening: Spontaneous Motor: Obeys Commands Verbal: Inappropriate GCS Score: 13 Results - Vitals Vitals: Vital Signs - 24 hr 09/12/19 09/12/19 09/12/19 16:43 18:00 18:49 Temperature 36.3 C L Heart Rate 87 74 87 Respiratory 18 12 20 Rate Blood Pressure 184/160 H 173/101 H 163/97 H O2 Saturation 96 96 99 Oxygen O2 Source Room air - EKG (time done) 1759 Rate: Rate (enter#) (83) Rhythm: NSR [place]: Normal Intervals: RBBB QRS: Normal Ischemia: Normal ST segments Computer interpretation: Agree with computer - Labs Labs: Laboratory Tests 09/12/19 09/12/19 17:15 17:15 WBC 13.9 H RBC 4.65 L Hgb 15.5 Hct 44.0 MCV 94.6 H MCH 33.3 H MCHC 35.2 RDW 12.5 Plt Count 335 MPV 11.0 Neut # (Auto) 11.8 H Lymph # (Auto) 1.2 L [place] # (Auto) 0.8 Eos # (Auto) 0.0 Baso # (Auto) 0.0 Absolute Nucleated RBC 0.00 Nucleated RBC % 0.0 Sodium 137 Potassium 3.7 Chloride 99 L Carbon Dioxide 26 Anion Gap 12.0 BUN 15 Creatinine 1.1 Estimated GFR (MDRD) 66 L Glucose 127 H Calcium 9.2 Magnesium 2.0 Total Bilirubin 0.9 AST 22 ALT 19 Alkaline Phosphatase 89 Total Protein 7.9 Albumin 4.6 Globulin 3.3 Albumin/Globulin Ratio 1.4 Lipase 612 H Ethyl Alcohol < 5.0 - Rads (name of study) CT of the head and C-spine Radiology: EMP read contemporaneously (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 Departure - Departure Disposition: 01 Home, Self Care Clinical Impression: Seizure Condition: Good Record reviewed to determine appropriate education?: Yes Instructions: ED Seizure Recurrent Comments: Continue current medications, avoid drugs and alcohol. Return for new or worsening symptoms. Follow-up with your doctor.
--- NOTE | 2019-09-12 17:26 | CT Report ---
Reason: head injury Procedure Date: 09/12/2019 Accession Number: [id number] / [id number] Procedure: CT - HEAD WO CPT Code: Final Report FULL RESULT: EXAM: CT HEAD EXAM DATE: 09/12/2019 05:01 PM. CLINICAL HISTORY: Head injury. COMPARISON: CERVICAL SPINE W/O 10/01/2018 8:43 AM HEAD W/O 10/01/2018 8:34 AM HEAD W/O 04/17/2016 4:43 PM. TECHNIQUE: Multiaxial CT images were obtained from the foramen magnum to the vertex. Reformats: Sagittal and coronal. IV contrast: None. In accordance with CT protocol optimization, one or more of the following dose reduction techniques were utilized for this exam: automated exposure control, adjustment of mA and/or KV based on patient size, or use of iterative reconstructive technique. FINDINGS: Parenchyma: Remote infarct right caudate body. Remote infarct left caudate head. Remote infarct anterior limb left internal capsule. Mild diffuse cerebellar atrophy. Negative for parenchymal hemorrhage. Frontal periventricular white matter decreased density is consistent with chronic small vessel ischemia. Extraaxial Spaces: Normal for age. No subdural or epidural collections identified. Ventricles: Normal in size and position. Sinuses and Orbits: Imaged paranasal sinuses, orbits, and mastoids show no significant abnormality. Bones: No evidence of fracture or calvarial defect. Other: None. IMPRESSION: 1. Negative for intracranial hemorrhage. 2. 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 RADIA
[2019-09-12 17:27] LABS: BASOPHILS % (AUTO) 0.2 %; EOSINOPHILS % (AUTO) 0.3 %; HGB - HEMOGLOBIN 15.5 g/dL (14.0-18.0); LYMPHOCYTES # (AUTO) 1.2 10^3/uL (1.5-3.5); LYMPHOCYTES % (AUTO) 8.8 %; MEAN CORPUSCULAR HEMOGLOBIN 33.3 pg (27.0-31.0); MEAN CORPUSCULAR HGB CONC 35.2 g/dL (32.0-36.0); MEAN CORPUSCULAR VOLUME 94.6 fL (80.0-94.0); MONOCYTES # (AUTO) 0.8 10^3/uL (0.0-1.0); MONOCYTES % (AUTO) 5.5 %; NEUTROPHILS # (AUTO) 11.8 10^3/uL (1.5-6.6); NEUTROPHILS % (AUTO) 84.8 %; PLT - PLATELET COUNT 335 10^3/uL (130-450); RED BLOOD COUNT 4.65 10^6/uL (4.70-6.10); RED CELL DISTRIBUTION WIDTH 12.5 % (12.0-15.0); WHITE BLOOD COUNT 13.9 x10^3/uL (4.8-10.8)
--- NOTE | 2019-09-12 17:28 | CT Report ---
Reason: head injury Procedure Date: 09/12/2019 Accession Number: [id number] / [id number] Procedure: CT - CERVICAL SPINE WO CPT Code: Final Report FULL RESULT: EXAM: CT CERVICAL SPINE WITHOUT CONTRAST. DATE: 09/12/2019 05:01 PM. HISTORY: Head injury. COMPARISONS: CERVICAL SPINE W/O 10/01/2018 8:43 AM. TECHNIQUE: Thin-section axial images were acquired of the cervical spine without contrast. Post-processing: Coronal and sagittal reformats. Other: None. In accordance with CT protocol optimization, one or more of the following dose reduction techniques were utilized for this exam: automated exposure control, adjustment of mA and/or KV based on patient size, or use of iterative reconstructive technique. FINDINGS: Alignment: No scoliosis or spondylolisthesis. Bones: No fracture or bone lesion. Interspace Levels/Facets: Again seen are multilevel disk and facet joint related degenerative changes resulting in variable degrees of neural foraminal and central canal stenosis most significant at C6-C7 and C7-T1. There is fusion of the C6-C7 vertebra and left C3-C4 facets. Overall degree of spondylosis is similar to the comparison exam. Musculature: Normal. No fatty atrophy. Other: The paravertebral and prevertebral soft tissues are unremarkable. The lung apices are clear. IMPRESSION: 1. No cervical spine fracture. 2. Diffuse spondylosis is similar to the 10/01/2018 CT. RADIA
[2019-09-12 17:48] LABS: ALBUMIN 4.6 g/dL (3.2-5.5); ALKALINE PHOSPHATASE 89 IU/L (42-121); ALT ALANINE AMINOTRANSFERASE 19 IU/L (10-60); AST ASPARTATE AMINOTRANSFERASE 22 IU/L (10-42); BUN - BLOOD UREA NITROGEN 15 mg/dL (6-20); CALCIUM 9.2 mg/dL (8.5-10.3); CARBON DIOXIDE - CO2 26 mmol/L (21-32); CHLORIDE 99 mmol/L (101-111); CREATININE 1.1 mg/dL (0.6-1.2); GFR - MDRD 66 (>89); GLUCOSE 127 mg/dL (70-100); SODIUM 137 mmol/L (135-145)
[2019-09-12 17:49] LABS: ALBUMIN/GLOBULIN RATIO 1.4 (1.0-2.2); BILIRUBIN,TOTAL 0.9 mg/dL (0.2-1.0); TOTAL PROTEIN 7.9 g/dL (6.7-8.2)
[2019-09-12 18:16] LABS: LIPASE 612 U/L (22-51)
[2019-09-12 19:23] VITALS: BP 165/97
== END 2019-09-12 19:32 | disposition home or self-care (01) ==
LOC: EDUNIT# → ED 16:39
DX: G40.909 Epilepsy, unspecified, not intractable, without status epilepticus (principal); S60.512A Abrasion of left hand, initial encounter; S60.511A Abrasion of right hand, initial encounter; W18.11XA Fall from or off toilet without subsequent striking against object, initial encounter; Y93.E8 Activity, other personal hygiene; Y92.002 Bathroom of unspecified non-institutional (private) residence as the place of occurrence of the external cause; M47.812 Spondylosis without myelopathy or radiculopathy, cervical region; M48.02 Spinal stenosis, cervical region; I45.10 Unspecified right bundle-branch block; F17.200 Nicotine dependence, unspecified, uncomplicated; Z79.82 Long term (current) use of aspirin
CPT/HCPCS: 36415; 70450; 72125; 80053; 80320; 83690; 83735; 85025; 93005; 99281; 99284

== ENCOUNTER 2019-09-25 18:00 | Outpatient (CLI) | payer MEDICARE | END 2019-09-25 18:01 | disposition critical access hospital (66) | LOC: EMS 18:00 | PROVIDERS: ATTEND Surgery | DX: R56.9 Unspecified convulsions (principal) | CPT/HCPCS: A0425; A0427 ==

== ENCOUNTER 2019-09-25 18:16 | Inpatient (IN) | payer MEDICARE ==
--- NOTE | 2019-09-25 18:24 | ED Physician Documentation ---
PD HPI SEIZURE - Stated complaint Stated Complaint: SZ - History obtained from History obtained from: EMS - History of Present Illness Timing - onset: Today (74-year-old gentleman on Keppra for seizures. Presents by ambulance for a seizure today. Reportedly preceded by vomiting x1, some may not of kept on his medications. Per report from the paramedics the concern was not so much the seizure but that the post ictal episode was lasting longer than his usual. On arrival the patient is alert and following commands but nonverbal.) Review of Systems Unable to obtain: Confused PD PAST MEDICAL HISTORY - Past Medical History Cardiovascular: None Respiratory: None Neuro: Seizure disorder Endocrine/Autoimmune: None GI: None : None HEENT: None Psych: None Musculoskeletal: None Derm: None - Present Medications Home Medications: Ambulatory Orders Medication Instructions Recorded Confirmed Aspirin Chewable [St Price 81 mg PO DAILY 10/02/18 09/25/19 Aspirin] Multivitamin [Theragran] 1 each PO DAILY 10/02/18 09/25/19 Simvastatin [Zocor] 40 mg PO QPM 10/02/18 09/25/19 Metoprolol Tartrate [Lopressor] 12.5 mg PO BID #60 tablet 10/04/18 09/25/19 Multivitamin W/Minerals [Theragran 1 tab PO DAILYWM tablet 10/04/18 09/25/19 M] levETIRAcetam [Keppra] 750 mg PO BID #180 tablet 10/04/18 09/25/19 polyethylene glycoL 3350 [Miralax] 17 gm PO DAILY packet 10/04/18 09/25/19 - Allergies Allergies/Adverse Reactions: Allergies Allergy/AdvReac Type Severity Reaction Status Date / Time No Known Drug Allergies Allergy Verified 09/25/19 18:28 - Social History Does the pt smoke?: Yes Smoking Status: Current every day smoker PD ED PE NORMAL - Vitals Vital signs reviewed: Yes - General General: No acute distress, Well developed/nourished - HEENT HEENT: PERRL, EOMI, Pharynx benign - Neck Neck: Supple, no meningeal sign, No bony TTP - Cardiac Cardiac: RRR, No murmur - Respiratory Respiratory: No respiratory distress, Clear bilaterally - Abdomen Abdomen: Normal bowel sounds, Soft, Non tender - Back Back: No CVA TTP, No spinal TTP - Derm Derm: Normal color, Warm and dry - Extremities Extremities: No edema, No calf tenderness / cord - 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, No motor deficit, No sensory deficit Eye Opening: Spontaneous Motor: Obeys Commands Verbal: Confused GCS Score: 14 Results - Vitals Vitals: Vital Signs - 24 hr 09/25/19 09/25/19 18:21 18:33 Temperature 36.8 C Heart Rate 79 87 Respiratory 16 20 Rate Blood Pressure 172/92 H 183/95 H O2 Saturation 98 96 Oxygen O2 Source Room air - Labs Labs: Laboratory Tests 09/25/19 09/25/19 09/25/19 18:06 18:35 18:35 WBC 8.7 RBC 4.13 L Hgb 13.6 L Hct 40.9 L MCV 99.0 H MCH 32.9 H MCHC 33.3 RDW 12.5 Plt Count 233 MPV 11.5 H Neut # (Auto) 6.4 Lymph # (Auto) 1.5 [place] # (Auto) 0.6 Eos # (Auto) 0.1 Baso # (Auto) 0.0 Absolute Nucleated RBC 0.00 Nucleated RBC % 0.0 Sodium 137 Potassium 3.6 Chloride 100 L Carbon Dioxide 28 Anion Gap 9.0 BUN 18 Creatinine 0.9 Estimated GFR (MDRD) 83 L Glucose 89 Calcium 9.1 Total Bilirubin 0.6 AST 23 ALT 27 Alkaline Phosphatase 94 Total Protein 7.4 Albumin 4.5 Globulin 2.9 Albumin/Globulin Ratio 1.6 Lipase 780 H Urine Color YELLOW Urine Clarity HAZY Urine pH 6.0 Ur Specific [place] 1.025 Urine Protein NEGATIVE Urine Glucose (UA) NEGATIVE Urine Ketones NEGATIVE Urine Occult Blood SMALL H Urine Nitrite NEGATIVE Urine Bilirubin NEGATIVE Urine Urobilinogen 0.2 (NORMAL) Ur Leukocyte Esterase NEGATIVE Urine RBC 6-10 H Urine WBC 0-3 Ur Squamous Epith Cells NONE SEEN Urine Bacteria None Seen Ur Microscopic Review INDICATED Urine Culture Comments NOT INDICATED Urine Opiates Screen NEGATIVE Ur Oxycodone Screen NEGATIVE Urine Methadone Screen NEGATIVE Ur Propoxyphene Screen NEGATIVE Ur Barbiturates Screen NEGATIVE Ur Tricyclics Screen NEGATIVE Ur Phencyclidine Scrn NEGATIVE Ur Amphetamine Screen POSITIVE H U Methamphetamines Scrn NEGATIVE U Benzodiazepines Scrn NEGATIVE Urine Cocaine Screen NEGATIVE U Cannabinoids Screen POSITIVE H Ethyl Alcohol < 5.0 PD MEDICAL DECISION MAKING - ED course ED course: 74-year-old gentleman who had a prolonged postictal episode after a seizure. It is a recurrent seizure disorder. He admits to drinking alcohol yesterday, so that may explain the pancreatic inflammation. He denies any abdominal pain now. There was also concerned that he had been using methamphetamines and he does have amphetamines in his system. He did not really come back to normal with some significant memory problems. Some odd behaviors. A CT was done and the nurse had a long conversation with the family by phone who said this is basically his new baseline and they wonder if he might be getting demented. After significant time in the Ed, still not back to baseline per family and Dr Petit will obs. Departure - Departure Disposition: ED Place in Observation Clinical Impression: Seizure, ETOH abuse Altered mental status Qualifiers: Altered mental status type: disorientation Qualified Code(s): R41.0 - Disorientation, unspecified Condition: Good Record reviewed to determine appropriate education?: Yes
[2019-09-25 18:40] LABS: BASOPHILS % (AUTO) 0.1 %; EOSINOPHILS # (AUTO) 0.1 10^3/uL (0.0-0.7); EOSINOPHILS % (AUTO) 0.8 %; HGB - HEMOGLOBIN 13.6 g/dL (14.0-18.0); LYMPHOCYTES # (AUTO) 1.5 10^3/uL (1.5-3.5); LYMPHOCYTES % (AUTO) 17.8 %; MEAN CORPUSCULAR HEMOGLOBIN 32.9 pg (27.0-31.0); MEAN CORPUSCULAR HGB CONC 33.3 g/dL (32.0-36.0); MEAN PLATELET VOLUME 11.5 fL (7.4-11.4); MONOCYTES # (AUTO) 0.6 10^3/uL (0.0-1.0); MONOCYTES % (AUTO) 7.2 %; NEUTROPHILS # (AUTO) 6.4 10^3/uL (1.5-6.6); NEUTROPHILS % (AUTO) 73.8 %; PLT - PLATELET COUNT 233 10^3/uL (130-450); RED BLOOD COUNT 4.13 10^6/uL (4.70-6.10); RED CELL DISTRIBUTION WIDTH 12.5 % (12.0-15.0); WHITE BLOOD COUNT 8.7 x10^3/uL (4.8-10.8)
[2019-09-25 18:40] LABS: MUDS CUTOFF CONCENTRATIONS CUTOFF CONC BELOW:
[2019-09-25 18:42] LABS: BILIRUBIN,URINE NEGATIVE (NEGATIVE); GLUCOSE, URINE (UA) NEGATIVE (NEGATIVE); KETONES,URINE (UA) NEGATIVE (NEGATIVE); LEUKOCYTE ESTERASE, URINE NEGATIVE (NEGATIVE); NITRITE,URINE NEGATIVE (NEGATIVE); OCCULT BLOOD,URINE SMALL (NEGATIVE); PROTEIN,URINE NEGATIVE (NEGATIVE); UROBILINOGEN,URINE 0.2 (NORMAL) E.U./dL (NORMAL)
[2019-09-25 18:50] LABS: CLARITY,URINE HAZY (CLEAR)
[2019-09-25 18:54] LABS: AMPHETAMINE SCREEN,URINE POSITIVE (NEGATIVE); BENZODIAZEPINES SCREEN, URINE NEGATIVE (NEGATIVE); COCAINE SCREEN URINE NEGATIVE (NEGATIVE); METHADONE SCREEN, URINE NEGATIVE (NEGATIVE); METHAMPHETAMINES SCREEN, URINE NEGATIVE (NEGATIVE); OPIATE SCREEN, URINE NEGATIVE (NEGATIVE); OXYCODONE SCREEN, URINE NEGATIVE (NEGATIVE); PROPOXYPHENE SCREEN, URINE NEGATIVE (NEGATIVE); TRICYCLIC ANTIDEPRESSANT,URINE NEGATIVE (NEGATIVE)
[2019-09-25 18:57] LABS: BACTERIA,URINE None Seen /HPF (None Seen); SQUAMOUS EPITHELIAL CELL,UR NONE SEEN (<= Few)
[2019-09-25 19:11] LABS: ALBUMIN 4.5 g/dL (3.2-5.5); ALBUMIN/GLOBULIN RATIO 1.6 (1.0-2.2); ALKALINE PHOSPHATASE 94 IU/L (42-121); ALT ALANINE AMINOTRANSFERASE 27 IU/L (10-60); AST ASPARTATE AMINOTRANSFERASE 23 IU/L (10-42); BILIRUBIN,TOTAL 0.6 mg/dL (0.2-1.0); BUN - BLOOD UREA NITROGEN 18 mg/dL (6-20); CALCIUM 9.1 mg/dL (8.5-10.3); CARBON DIOXIDE - CO2 28 mmol/L (21-32); CHLORIDE 100 mmol/L (101-111); CREATININE 0.9 mg/dL (0.6-1.2); GFR - MDRD 83 (>89); GLUCOSE 89 mg/dL (70-100); LIPASE 780 U/L (22-51); SODIUM 137 mmol/L (135-145); TOTAL PROTEIN 7.4 g/dL (6.7-8.2)
--- NOTE | 2019-09-25 20:59 | CT Report ---
Reason: altered Procedure Date: 09/25/2019 Accession Number: [id number] / [id number] Procedure: CT - HEAD WO CPT Code: Final Report FULL RESULT: EXAM: CT HEAD EXAM DATE: 09/25/2019 08:07 PM. CLINICAL HISTORY: Altered. Seizures today. Vomited today. COMPARISON: CERVICAL SPINE W/O 09/12/2019 4:59 PM HEAD W/O 09/12/2019 4:59 PM HEAD W/O 10/01/2018 8:34 AM HEAD W/O 04/17/2016 4:43 PM. TECHNIQUE: Multiaxial CT images were obtained from the foramen magnum to the vertex. Reformats: Sagittal and coronal. IV contrast: None. In accordance with CT protocol optimization, one or more of the following dose reduction techniques were utilized for this exam: automated exposure control, adjustment of mA and/or KV based on patient size, or use of iterative reconstructive technique. FINDINGS: Parenchyma: No mass-effect or midline shift. No evidence for edema. No evidence for acute intracranial hemorrhage. Chronic lacunar infarcts seen at the bilateral basal ganglia and thalami. Mild bilateral periventricular chronic microangiopathy. A couple of small chronic infarcts at the right cerebellar hemisphere again noted. Extraaxial Spaces: Normal for age. No subdural or epidural collections identified. Ventricles: The ventricles and cortical sulci are prominent, consistent with age-related tissue loss. Sinuses and orbits: Imaged paranasal sinuses, orbits, and mastoids show no significant abnormality. Bones: No evidence of fracture or calvarial defect. IMPRESSION: Chronic and senescent changes. No acute intracranial abnormality seen. RADIA
[2019-09-25] MEDS ORDERED: SODIUM CHLORIDE FLUSH 0.9% 10 ML SYRINGE IVP PRN ×2 (21:29→23:18)
[2019-09-25] MEDS ORDERED: LORazepam 2 MG/ML VIAL IVP PRN ×2 (21:35→23:17)
--- NOTE | 2019-09-25 21:37 | HISTORY & PHYSICAL EXAMINATION ---
Chief Complaint - Chief Complaint Chief Complaint: seizure, encephalopathy History of Present Illness - Admitted From Admitted From:: [facility] - History Obtained From Records Reviewed: yes History obtained from: ED physician Exam Limitations: patient had a seizure in the room befor my exam and was postictal - History of Present Illness HPI Comment/Other: Patient is a 74 y/o male with Hx of alcoholism, methamphetamine abuse and seizures who presented to the ED after a seizure episode at home. He was last seen in the ED 12 days ago for a seizure. He was discharged home from the ED at that time. However today the post-ictal period seemed to last much longer, prompting family to call EMS. Patient continued exhibiting odd behavior upon arrival to the ED. For example, he just urinated on the floor where he stood. It is reported that his seizure was preceded by vomiting X1. He is supposed to be on keppra 750mg po bid. He last drank alcohol on 09/24/2019. Toxicology screen was negative for alcohol but positive for marijuana and amphetamine. He was also found to have a lipase of 780. As a result of still being altered, he was presented for admission for further observation. He was transferred to the Med/Surg unit where I briefly entered his room, introduced myself and stepped out for him to get situated by nursing staff. He was able to transfer from one bed to the other on his own. It was reported by nursing that he appeared a bit diaphoretic upon arrival to Med/Surg. While nursing staff was assessing the patient, he suddenly adali still in bed with a blank stare, then started having a tonic-clonic seizure. He was given ativan 1mg IV X1. As a result he was transferred to the ICU where he remained in a post- ictal state. As a result further history could not be obtained from the patient. Currently he reacts to painful stimuli, he is moving all extremities. His pupils are reactive to light bilaterally. He is protecting his airway and breathing comfortably on room air. History - Past Medical History Cardiovascular: reports: None, Hypertension, High cholesterol Respiratory: reports: None Neuro: reports: Seizure disorder Endocrine/Autoimmune: reports: None GI: reports: None : reports: None HEENT: reports: None Psych: reports: None Musculoskeletal: reports: None Derm: reports: None MRSA Hx?: No - Family & Social History Family History Comment/Other: Cannot obtain family history because patient is currently post-ictal Social History Notes: Patient has history of alcohol and methamphetamine abuse. Also uses THC - POLST Patient has POLST: No POLST Status: Full Code Meds/Allgy - Home Medications Home Medications: Ambulatory Orders Medication Instructions Recorded Confirmed RX: Aspirin Chewable [St Price 81 mg PO DAILY 10/02/18 09/25/19 Aspirin] RX: Multivitamin [Theragran] 1 each PO DAILY 10/02/18 09/25/19 RX: Simvastatin [Zocor] 40 mg PO QPM 10/02/18 09/25/19 RX: Metoprolol Tartrate [Lopressor] 12.5 mg PO BID #60 tablet 10/04/18 09/25/19 RX: Multivitamin W/Minerals 1 tab PO DAILYWM tablet 10/04/18 09/25/19 [Theragran M] RX: levETIRAcetam [Keppra] 750 mg PO BID #180 tablet 10/04/18 09/25/19 RX: polyethylene glycoL 3350 17 gm PO DAILY packet 10/04/18 09/25/19 [Miralax] - Allergies Allergies/Adverse Reactions: Allergies Allergy/AdvReac Type Severity Reaction Status Date / Time No Known Drug Allergies Allergy Verified 09/25/19 18:28 Review of Systems - Other Findings Other Findings: Limited ROS because patient is currently post-ictal Prior Level of Functionality: Cannot determine at this time due to AMS Exam - Vital Signs Vital Signs: Vital Signs x48h Temp Pulse Resp BP Pulse Ox 09/25/19 18:33 87 20 183/95 H 96 09/25/19 18:21 36.8 C 79 16 172/92 H 98 - Physical Exam General Appearance: positive: No acute distress, Other (Post-ictal) Eyes Bilateral: positive: Normal inspection, PERRL, EOMI ENT: positive: ENT inspection nml Neck: positive: No JVD, Trachea midline Respiratory: positive: Chest non-tender, No respiratory distress, Breath sounds nml. negative: Wheezes, Rales, Rhonchi Cardiovascular: positive: Regular rate & rhythm, No murmur, No gallop Abdomen: positive: Non-tender, No organomegaly, Nml bowel sounds, No distention. negative: Guarding, Rebound Back: positive: Nml inspection Skin: positive: Color nml, Diaphoresis Extremities: positive: Non-tender, No pedal edema Neurologic/Psychiatric: positive: Disoriented to person, Disoriented to place, Disoriented to time, Other (Post-ictal) Conclusion/Plan - Problem List (1) Seizure Conclusion/Plan: Etiology: ?2/2 Alcohol withdrawal vs medical non-compliance Keppra 750mg IV bid started. Patient given ativan 1mg IV X1 during active seizure Ativan IV ordered prn for seizure. If seizure persists, will start ativan gtt Seizure precaution. Patient in the ICU for closer monitoring. CIWA initiated CT head was unremarkable (2) ETOH abuse Conclusion/Plan: CIWA protocol initiated Librium 25mg q6hr ordered Vitamin B1 and Mg ordered (3) Methamphetamine abuse Conclusion/Plan: Will monitor (4) Hypertension Conclusion/Plan: Labetalol 10mg IV q4hrs prn ordered for SBP> 160 (5) Hyperlipidemia Conclusion/Plan: Will resume patient's synthroid once able to tolerate (6) Elevated lipase Conclusion/Plan: Will trend. If further elevated, will do and abdominal US to assess for pancreatitis Patient currently on NS at 125ml/hr - Lab Results Fish Bones: 09/26/19 04:55 09/26/19 04:55 Core Measures - Anticipated LOS I expect patient to be DC'd or transferred within 96 hours.: Yes - DVT/VTE - Prophylaxis VTE/DVT Device ordered at admit?: Yes VTE/DVT Prophylaxis med ordered at admit?: Yes
[2019-09-25] MEDS ORDERED: levETIRAcetam 250 MG TABLET PO SCH (22:00)
[2019-09-25] MEDS ORDERED: MAGNESIUM SULFATE 2 GRAM 2 GM/50 ML BAG IV ONE (22:30)
[2019-09-25] MEDS ORDERED: ONDANSETRON ODT 4 MG TABLET TL PRN (22:48)
[2019-09-25] MEDS: SODIUM CHLORIDE 0.9% 1,000 ML IV SCH (23:13)
[2019-09-25] MEDS: chlordiazePOXIDE 25 MG CAPSULE PO SCH (23:14)
[2019-09-25] MEDS: levETIRAcetam INJ 750 MG in SODIUM CHLORIDE 0.9% 100ML 100 ML IV SCH (23:26)
[2019-09-26] MEDS: chlordiazePOXIDE 25 MG CAPSULE PO SCH ×3 (00:12→12:29)
[2019-09-26] MEDS: SODIUM CHLORIDE FLUSH 0.9% 10 ML SYRINGE IVP SCH ×7 (02:10→23:29)
[2019-09-26] MEDS: LABETALOL 5 MG/1 ML 20 ML MDV IVP PRN ×2 (02:11→22:23)
[2019-09-26 05:09] LABS: BASOPHILS % (AUTO) 0.2 %; EOSINOPHILS # (AUTO) 0.1 10^3/uL (0.0-0.7); EOSINOPHILS % (AUTO) 0.9 %; LYMPHOCYTES # (AUTO) 1.8 10^3/uL (1.5-3.5); LYMPHOCYTES % (AUTO) 20.4 %; MEAN CORPUSCULAR HEMOGLOBIN 31.9 pg (27.0-31.0); MEAN CORPUSCULAR HGB CONC 33.4 g/dL (32.0-36.0); MEAN CORPUSCULAR VOLUME 95.6 fL (80.0-94.0); MEAN PLATELET VOLUME 11.2 fL (7.4-11.4); MONOCYTES # (AUTO) 0.8 10^3/uL (0.0-1.0); MONOCYTES % (AUTO) 9.3 %; NEUTROPHILS # (AUTO) 5.9 10^3/uL (1.5-6.6); PLT - PLATELET COUNT 250 10^3/uL (130-450); RED BLOOD COUNT 4.07 10^6/uL (4.70-6.10); RED CELL DISTRIBUTION WIDTH 12.3 % (12.0-15.0); WHITE BLOOD COUNT 8.6 x10^3/uL (4.8-10.8)
[2019-09-26 05:24] LABS: CALCIUM 8.6 mg/dL (8.5-10.3); CREATININE 0.9 mg/dL (0.6-1.2)
[2019-09-26 05:42] LABS: MAGNESIUM 2.2 mg/dL (1.7-2.8); PHOSPHORUS 2.5 mg/dL (2.5-4.6)
[2019-09-26] MEDS: POTASSIUM CHLOR 10 MEQ/100 ML 10 MEQ/100 ML BAG IV SCH ×4 (05:53→09:58)
[2019-09-26] MEDS: SODIUM CHLORIDE 0.9% 1,000 ML IV SCH ×3 (08:25→23:31)
[2019-09-26] MEDS ORDERED: LORazepam 2 MG/ML VIAL IVP PRN (09:10)
[2019-09-26] MEDS: levETIRAcetam INJ 750 MG in SODIUM CHLORIDE 0.9% 100ML 100 ML IV SCH ×2 (09:52→20:41)
[2019-09-26] MEDS: ASPIRIN CHEW 81 MG TABLET PO SCH (10:26)
[2019-09-26] MEDS: THIAMINE 100 MG TABLET PO SCH (10:26)
[2019-09-26] MEDS: KETOROLAC 30 MG/ML VIAL IVP PRN ×2 (12:19→22:05)
--- NOTE | 2019-09-26 14:22 | PROVIDER PROGRESS NOTE ---
Assessment/Plan - Problem List (1) Altered mental status Qualifiers: Altered mental status type: somnolence Qualified Code(s): R40.0 - Somnolence Assessment/Plan: He received Ativan several times and is now on Librium to prevent alcohol withdrawal. Will decrease the Librium doses to prevent oversedation CIWA protocol with Ativan ordered as needed, the doses will also be decreased. Continue to monitor as we restart po Keppra before discharge home. He remains in the ICU because of the recent seizures, with neuro checks. (2) Seizure Assessment/Plan: He had presented because he had a prolonged confusion when he was postictal after a seizure at home, which a family member saw. He then had a seizure in the ER and received IV Ativan. He was witnessed to have thrown up his Keppra p.o. He is therefore on Keppra IV to get serum levels back up. (3) Elevated lipase Assessment/Plan: The elevated lipase level decreased by half on recheck just 10 hours later (780>> 340) This could have been his symptoms of nausea and vomiting and why he could not keep down the Keppra for example. Will order ultrasound of the pancreas to evaluate for pancreatitis. Continue with clear liquids only for diet. (4) Dysuria Assessment/Plan: As he has become more awake, this daytime shift nurse has gotten complaints from him of burning when he urinates and urgency and frequency. Will order urinalysis, treat if abnormal. Ordered Pyridium for symptomatic management. (5) ETOH abuse Assessment/Plan: There was no alcohol on serum toxicology testing however he is too sedated answer me when his last alcohol intake was. He remains on a CIWA protocol with as needed Ativan. Librium was also started on a scheduled pattern, this is over sedating him. I will decrease the dose but continue scheduled every 6 hour treatment. Today at 1830, the social sciences department chair had a discussion with his caregiver who is his great niece who everybody called his daughter yesterday: She stated that he has not been drinking alcohol because she sees him daily and that he has been having abdominal pain recently and throwing up intermittently. Continue clear liquid diet. Continue pancreatitis W/U. (6) Hypertension Assessment/Plan: Start p.o. home meds when they are reconciled, if he has stopped vomiting, otherwise iv forms (7) Methamphetamine abuse Assessment/Plan: As per history from the daughter at the time of admission. His tox screen did show amphetamines (+). Therefore some of his somnolence may be from withdrawal of meth - Current Meds Current Meds: Current Medications Generic Name Dose Route Start Last Admin Trade Name Freq PRN Reason Stop Dose Admin Aspirin 81 mg 09/26/19 10:00 09/26/19 10:26 St Price Aspirin PO 81 mg DAILY STEFANY Administration Sodium Chloride 1,000 mls @ 125 mls/hr 09/25/19 22:00 09/26/19 08:25 Normal Saline 0.9% IV 125 mls/hr .Q8H STEFANY Administration Levetiracetam 750 mg/ Sodium 107.5 mls @ 400 mls/hr 09/25/19 23:45 09/26/19 10:09 Chloride IV Infused BID STEFANY Infusion Ketorolac Tromethamine 15 mg 09/26/19 11:31 09/26/19 12:19 Toradol Inj (30mg) IVP 10/01/19 11:30 15 mg Q6HR PRN Administration PAIN Labetalol HCl 10 mg 09/26/19 01:36 09/26/19 02:11 Trandate Inj IVP 10 mg Q4H PRN Administration PER PHYSICIAN ORDER Sodium Chloride 10 ml 09/26/19 01:00 09/26/19 09:59 Normal Saline Flush 0.9% IVP 10 ml 0100,0900,1700 STEFANY Administration Sodium Chloride 10 ml 09/26/19 01:00 09/26/19 09:59 Normal Saline Flush 0.9% IVP Not Given 0100,0900,1700 STEFANY Thiamine HCl 100 mg 09/26/19 09:00 09/26/19 10:26 Vitamin B-1 PO 100 mg DAILY STEFANY Administration - Lab Result Fish Bone Diagrams: 09/26/19 04:55 09/26/19 04:55 - Additional Planning My Orders: My Active Orders 09/26/19 UA w/ MICROSCOPIC, CULT IF [URIN] Urgent 09/26/19 09:10 LORazepam INJ [Ativan Inj (Vial)] 0.5 mg IVP Q2H PRN 09/26/19 10:00 Aspirin Chewable [St Price Aspirin] 81 mg PO DAILY 09/26/19 11:31 Ketorolac Inj (30Mg) [Toradol Inj (30Mg)] 15 mg IVP Q6HR PRN 09/26/19 15:00 Phenazopyridine [Pyridium] 100 mg PO TID 09/26/19 18:00 chlordiazePOXIDE [Librium] 12.5 mg PO Q6HR 09/26/19 Lunch Clear Liquid Diet [DIET] 09/27/19 09:00 Multivitamin [Theragran] 1 tab PO DAILY Subjective - Subjective Patient Reports: Resting Comfortably, Other (Good is here balance test is baseline good hello this is Dr. Hua hospitalist beautiful after 3 AM he became very fidgety. He has to be reoriented to stay in bed. He complains of dysuria and urgency and frequency.) Objective Vital Signs: Vital Signs - 24 hr 09/25/19 09/25/19 09/25/19 18:21 18:33 23:35 Temperature 36.8 C Heart Rate 79 87 87 Heart Rate [ Monitoring electrodes] Respiratory 16 20 18 Rate Blood Pressure 172/92 H 183/95 H Blood Pressure [Right Brachial artery] O2 Saturation 98 96 09/25/19 09/25/19 09/25/19 23:36 23:40 23:45 Temperature 36.6 C Heart Rate 88 82 78 Heart Rate [ 78 Monitoring electrodes] Respiratory 18 18 17 Rate Blood Pressure 152/97 H Blood Pressure 161/81 H [Right Brachial artery] O2 Saturation 96 09/25/19 09/25/19 09/25/19 23:46 23:50 23:55 Temperature Heart Rate 83 80 80 Heart Rate [ Monitoring electrodes] Respiratory 17 18 17 Rate Blood Pressure 161/81 H Blood Pressure [Right Brachial artery] O2 Saturation 09/26/19 09/26/19 09/26/19 00:00 00:05 00:10 Temperature Heart Rate 83 83 79 Heart Rate [ Monitoring electrodes] Respiratory 20 17 19 Rate Blood Pressure Blood Pressure [Right Brachial artery] O2 Saturation 09/26/19 09/26/19 09/26/19 00:15 00:20 00:25 Temperature Heart Rate 82 84 89 Heart Rate [ Monitoring electrodes] Respiratory 15 17 15 Rate Blood Pressure Blood Pressure [Right Brachial artery] O2 Saturation 09/26/19 09/26/19 09/26/19 00:30 00:31 00:35 Temperature Heart Rate 81 80 90 Heart Rate [ 84 Monitoring electrodes] Respiratory 16 19 18 Rate Blood Pressure 157/82 H Blood Pressure 157/82 H [Right Brachial artery] O2 Saturation 09/26/19 09/26/19 09/26/19 00:40 00:45 00:50 Temperature Heart Rate 84 86 86 Heart Rate [ Monitoring electrodes] Respiratory 18 15 20 Rate Blood Pressure Blood Pressure [Right Brachial artery] O2 Saturation 09/26/19 09/26/19 09/26/19 00:55 01:00 01:01 Temperature Heart Rate 84 85 85 Heart Rate [ 84 Monitoring electrodes] Respiratory 18 17 16 Rate Blood Pressure 162/89 H Blood Pressure 162/89 H [Right Brachial artery] O2 Saturation 95 09/26/19 09/26/19 09/26/19 01:05 01:10 01:15 Temperature Heart Rate 87 83 82 Heart Rate [ Monitoring electrodes] Respiratory 19 17 15 Rate Blood Pressure Blood Pressure [Right Brachial artery] O2 Saturation 09/26/19 09/26/19 09/26/19 01:20 01:25 01:30 Temperature Heart Rate 80 81 86 Heart Rate [ Monitoring electrodes] Respiratory 12 15 Rate Blood Pressure Blood Pressure [Right Brachial artery] O2 Saturation 09/26/19 09/26/19 09/26/19 01:31 01:35 02:00 Temperature Heart Rate 85 84 Heart Rate [ 81 Monitoring electrodes] Respiratory 17 19 16 Rate Blood Pressure 179/92 H Blood Pressure 177/92 H [Right Brachial artery] O2 Saturation 97 09/26/19 09/26/19 09/26/19 02:14 02:15 02:20 Temperature Heart Rate Heart Rate [ 79 78 70 Monitoring electrodes] Respiratory Rate Blood Pressure Blood Pressure 151/90 H 152/88 H 161/112 H [Right Brachial artery] O2 Saturation 09/26/19 09/26/19 09/26/19 02:21 02:30 02:45 Temperature Heart Rate Heart Rate [ 73 68 71 Monitoring electrodes] Respiratory Rate Blood Pressure Blood Pressure 154/93 H 167/84 H 173/99 H [Right Brachial artery] O2 Saturation 09/26/19 09/26/19 09/26/19 03:00 04:00 05:00 Temperature Heart Rate Heart Rate [ 70 66 80 Monitoring electrodes] Respiratory 16 13 22 Rate Blood Pressure Blood Pressure 166/91 H 176/92 H 139/89 H [Right Brachial artery] O2 Saturation 97 97 99 09/26/19 09/26/19 09/26/19 06:00 08:00 08:16 Temperature 36.5 C 36.5 C Heart Rate 68 Heart Rate [ 86 68 Monitoring electrodes] Respiratory 17 17 17 Rate Blood Pressure Blood Pressure 188/91 H 170/94 H [Right Brachial artery] O2 Saturation 100 98 98 09/26/19 09/26/19 09/26/19 09:00 10:00 10:05 Temperature Heart Rate Heart Rate [ 64 66 74 Monitoring electrodes] Respiratory 10 L 15 Rate Blood Pressure Blood Pressure 191/89 H 183/91 H 165/82 H [Right Brachial artery] O2 Saturation 97 98 09/26/19 09/26/19 09/26/19 10:10 10:15 11:00 Temperature Heart Rate Heart Rate [ 78 70 71 Monitoring electrodes] Respiratory 15 Rate Blood Pressure Blood Pressure 168/90 H 170/97 H 200/99 H [Right Brachial artery] O2 Saturation 98 09/26/19 09/26/19 09/26/19 11:05 11:10 11:15 Temperature Heart Rate Heart Rate [ 70 91 87 Monitoring electrodes] Respiratory Rate Blood Pressure Blood Pressure 198/92 H 183/110 H 187/93 H [Right Brachial artery] O2 Saturation 09/26/19 09/26/19 09/26/19 12:00 13:00 14:00 Temperature Heart Rate Heart Rate [ 72 68 66 Monitoring electrodes] Respiratory 16 12 12 Rate Blood Pressure Blood Pressure 186/111 H 198/87 H 169/99 H [Right Brachial artery] O2 Saturation 96 97 100 Oxygen O2 Source Room air I&O (Last 24 Hrs): Intake and Output Totals x24h 09/24/19 09/25/19 09/26/19 23:59 23:59 23:59 Intake Total 107.5 1542.500 Output Total 475 Balance 107.5 1067.500 General: Other (sleeping, snoring) HEENT: Mucous membr. moist/pink Neck: Supple, No JVD Neuro: Other (somnolent, was moving all extremities spontaneously) Cardiovascular: Regular rate, No murmurs Respiratory: No respiratory distress, Breath sounds nml Abdomen: Normal bowel sounds, Soft, No tenderness Extremities: No edema - Results Results: Laboratory Results WBC 8.6 x10^3/uL (4.8-10.8) 09/26/19 04:55 RBC 4.07 10^6/uL (4.70-6.10) L 09/26/19 04:55 Hgb 13.0 g/dL (14.0-18.0) L 09/26/19 04:55 Hct 38.9 % (42.0-52.0) L 09/26/19 04:55 MCV 95.6 fL (80.0-94.0) H 09/26/19 04:55 MCH 31.9 pg (27.0-31.0) H 09/26/19 04:55 MCHC 33.4 g/dL (32.0-36.0) 09/26/19 04:55 RDW 12.3 % (12.0-15.0) 09/26/19 04:55 Plt Count 250 10^3/uL (130-450) 09/26/19 04:55 MPV 11.2 fL (7.4-11.4) 09/26/19 04:55 Neut # (Auto) 5.9 10^3/uL (1.5-6.6) 09/26/19 04:55 Lymph # (Auto) 1.8 10^3/uL (1.5-3.5) 09/26/19 04:55 Carter # (Auto) 0.8 10^3/uL (0.0-1.0) 09/26/19 04:55 Eos # (Auto) 0.1 10^3/uL (0.0-0.7) 09/26/19 04:55 Baso # (Auto) 0.0 10^3/uL (0.0-0.1) 09/26/19 04:55 Absolute Nucleated RBC 0.00 x10^3/uL 09/26/19 04:55 Nucleated RBC % 0.0 /100WBC 09/26/19 04:55 Sodium 134 mmol/L (135-145) L 09/26/19 04:55 Potassium 3.4 mmol/L (3.5-5.0) L 09/26/19 04:55 Chloride 98 mmol/L (101-111) L 09/26/19 04:55 Carbon Dioxide 26 mmol/L (21-32) 09/26/19 04:55 Anion Gap 10.0 (6-13) 09/26/19 04:55 BUN 14 mg/dL (6-20) 09/26/19 04:55 Creatinine 0.9 mg/dL (0.6-1.2) 09/26/19 04:55 Estimated GFR (MDRD) 83 (>89) L 09/26/19 04:55 Glucose 117 mg/dL (70-100) H 09/26/19 04:55 Calcium 8.6 mg/dL (8.5-10.3) 09/26/19 04:55 Phosphorus 2.5 mg/dL (2.5-4.6) 09/26/19 04:55 Magnesium 2.2 mg/dL (1.7-2.8) 09/26/19 04:55 Total Bilirubin 0.6 mg/dL (0.2-1.0) 09/25/19 18:35 AST 23 IU/L (10-42) 09/25/19 18:35 ALT 27 IU/L (10-60) 09/25/19 18:35 Alkaline Phosphatase 94 IU/L (42-121) 09/25/19 18:35 Total Protein 7.4 g/dL (6.7-8.2) 09/25/19 18:35 Albumin 4.5 g/dL (3.2-5.5) 09/25/19 18:35 Globulin 2.9 g/dL (2.1-4.2) 09/25/19 18:35 Albumin/Globulin Ratio 1.6 (1.0-2.2) 09/25/19 18:35 Lipase 341 U/L (22-51) H 09/26/19 04:55 Urine Color YELLOW 09/25/19 18:06 Urine Clarity HAZY (CLEAR) 09/25/19 18:06 Urine pH 6.0 PH (5.0-7.5) 09/25/19 18:06 Ur Specific [place] 1.025 (1.002-1.030) 09/25/19 18:06 Urine Protein NEGATIVE mg/dL (NEGATIVE) 09/25/19 18:06 Urine Glucose (UA) NEGATIVE mg/dL (NEGATIVE) 09/25/19 18:06 Urine Ketones NEGATIVE mg/dL (NEGATIVE) 09/25/19 18:06 Urine Occult Blood SMALL (NEGATIVE) H 09/25/19 18:06 Urine Nitrite NEGATIVE (NEGATIVE) 09/25/19 18:06 Urine Bilirubin NEGATIVE (NEGATIVE) 09/25/19 18:06 Urine Urobilinogen 0.2 (NORMAL) E.U./dL (NORMAL) 09/25/19 18:06 Ur Leukocyte Esterase NEGATIVE (NEGATIVE) 09/25/19 18:06 Urine RBC 6-10 /HPF (0-5) H 09/25/19 18:06 Urine WBC 0-3 /HPF (0-3) 09/25/19 18:06 Ur Squamous Epith Cells NONE SEEN (<= Few) 09/25/19 18:06 Urine Bacteria None Seen /HPF (None Seen) 09/25/19 18:06 Ur Microscopic Review INDICATED 09/25/19 18:06 Urine Culture Comments NOT INDICATED 09/25/19 18:06 Nasal Screen MRSA (PCR) NEGATIVE (NEGATIVE) 09/26/19 00:20 Urine Opiates Screen NEGATIVE (NEGATIVE) 09/25/19 18:06 Ur Oxycodone Screen NEGATIVE (NEGATIVE) 09/25/19 18:06 Urine Methadone Screen NEGATIVE (NEGATIVE) 09/25/19 18:06 Ur Propoxyphene Screen NEGATIVE (NEGATIVE) 09/25/19 18:06 Ur Barbiturates Screen NEGATIVE (NEGATIVE) 09/25/19 18:06 Ur Tricyclics Screen NEGATIVE (NEGATIVE) 09/25/19 18:06 Ur Phencyclidine Scrn NEGATIVE (NEGATIVE) 09/25/19 18:06 Ur Amphetamine Screen POSITIVE (NEGATIVE) H 09/25/19 18:06 U Methamphetamines Scrn NEGATIVE (NEGATIVE) 09/25/19 18:06 U Benzodiazepines Scrn NEGATIVE (NEGATIVE) 09/25/19 18:06 Urine Cocaine Screen NEGATIVE (NEGATIVE) 09/25/19 18:06 U Cannabinoids Screen POSITIVE (NEGATIVE) H 09/25/19 18:06 Ethyl Alcohol < 5.0 mg/dL 09/25/19 18:35
[2019-09-26] MEDS: PHENAZOPYRIDINE 100 MG TABLET PO SCH ×2 (14:46→20:37)
[2019-09-26 14:51] LABS: BILIRUBIN,URINE NEGATIVE (NEGATIVE); GLUCOSE, URINE (UA) NEGATIVE (NEGATIVE); KETONES,URINE (UA) NEGATIVE (NEGATIVE); LEUKOCYTE ESTERASE, URINE NEGATIVE (NEGATIVE); NITRITE,URINE NEGATIVE (NEGATIVE); OCCULT BLOOD,URINE SMALL (NEGATIVE); PROTEIN,URINE NEGATIVE (NEGATIVE); UROBILINOGEN,URINE 0.2 (NORMAL) E.U./dL (NORMAL)
[2019-09-26 14:55] LABS: CLARITY,URINE HAZY (CLEAR)
[2019-09-26 15:08] LABS: BACTERIA,URINE None Seen /HPF (None Seen); SQUAMOUS EPITHELIAL CELL,UR NONE SEEN (<= Few)
[2019-09-26] MEDS ORDERED: chlordiazePOXIDE 25 MG CAPSULE PO SCH ×2 (18:00)
[2019-09-26] MEDS: chlordiazePOXIDE 5 MG CAPSULE PO SCH ×2 (18:22→23:29)
--- NOTE | 2019-09-26 19:02 | PHARMACY PROGRESS NOTE ---
- Best Possible Medication History Admit Date and Time: 09/25/19 1887 Processed by: Nursing (Adrianne Thompson) Medication History completed: Yes As the person ultimately responsible for medication therapy, providers are able to order a medication from an existing home medication list in [facility] via the "Reconcile Routine" prior to Confirmation of that medication by technical support intern. Such practice is discouraged except when the physician, in their clinical judgment, deems that a medical need exists for a medication without regard to previous use.
[2019-09-26] MEDS ORDERED: PHENAZOPYRIDINE 100 MG TABLET PO STA (21:37)
[2019-09-27] MEDS: SODIUM CHLORIDE FLUSH 0.9% 10 ML SYRINGE IVP SCH ×5 (01:36→17:07)
[2019-09-27] MEDS ORDERED: PHENAZOPYRIDINE 100 MG TABLET PO SCH ×2 (04:00→14:00)
[2019-09-27] MEDS: chlordiazePOXIDE 5 MG CAPSULE PO SCH ×2 (05:27→12:41)
[2019-09-27] MEDS: SODIUM CHLORIDE 0.9% 1,000 ML IV SCH ×2 (06:07→08:01)
[2019-09-27 06:13] LABS: BASOPHILS % (AUTO) 0.3 %; EOSINOPHILS # (AUTO) 0.1 10^3/uL (0.0-0.7); HGB - HEMOGLOBIN 13.9 g/dL (14.0-18.0); LYMPHOCYTES # (AUTO) 1.7 10^3/uL (1.5-3.5); MEAN CORPUSCULAR HEMOGLOBIN 33.3 pg (27.0-31.0); MEAN CORPUSCULAR HGB CONC 33.8 g/dL (32.0-36.0); MEAN CORPUSCULAR VOLUME 98.3 fL (80.0-94.0); MEAN PLATELET VOLUME 10.9 fL (7.4-11.4); MONOCYTES # (AUTO) 0.8 10^3/uL (0.0-1.0); MONOCYTES % (AUTO) 9.2 %; NEUTROPHILS # (AUTO) 6.3 10^3/uL (1.5-6.6); NEUTROPHILS % (AUTO) 69.9 %; PLT - PLATELET COUNT 261 10^3/uL (130-450); RED BLOOD COUNT 4.18 10^6/uL (4.70-6.10); RED CELL DISTRIBUTION WIDTH 12.3 % (12.0-15.0)
[2019-09-27 06:30] LABS: CALCIUM 8.5 mg/dL (8.5-10.3); MAGNESIUM 1.9 mg/dL (1.7-2.8); PHOSPHORUS 2.2 mg/dL (2.5-4.6)
--- NOTE | 2019-09-27 08:21 | Ultrasound Report ---
Reason: Pancreatitis suspected Procedure Date: 09/27/2019 Accession Number: [id number] / [id number] Procedure: US - Abdomen Complete CPT Code: Final Report FULL RESULT: EXAM: ABDOMEN ULTRASOUND EXAM DATE: 09/27/2019 07:26 AM. CLINICAL HISTORY: Pancreatitis suspected. COMPARISON: None. TECHNIQUE: Real-time scanning was performed with static images obtained. FINDINGS: Liver: Lobular echogenic avascular right liver mass measuring 1.6 x 1.4 x 1.2 cm. No intrahepatic bile duct dilation. Remaining liver is mildly heterogeneous. Right liver measures 14 cm. Main portal vein flow: Hepatopetal. Gallbladder: Normal. No stones, wall thickening, or sonographic Moralez's sign. Biliary System: Common bile duct measures 6.9 mm. No intrahepatic or extrahepatic ductal dilatation. Distal common bile duct obscured by bowel gas. Pancreas: Obscured by bowel gas. Kidneys: Right: 10 cm longitudinally. Normal. No contour-deforming mass, stones, or hydronephrosis. Left: 11.6 cm longitudinally. Normal. No contour-deforming mass, stones, or hydronephrosis. Spleen: Length measures 9.9 cm. Normal in size and echotexture. Aorta and Inferior Vena Cava: Normal IVC. Normal mid and distal aorta. Proximal aorta obscured by bowel gas. Other: Study limited by bowel gas. IMPRESSION: 1. Circumscribed 1.6 cm echogenic avascular right liver mass. No intrahepatic bile duct dilation. Incidental homogeneous hyperechoic liver lesions discovered in patients without known malignancy or liver disease are almost always hepatic hemangiomas. Parish Mitchell., Riley Santoyo., Savita, S. A., [place], C. O. 2. Normal gallbladder and common bile duct. Distal common bile duct not seen. 3. Pancreas obscured by bowel gas. 4. Study limited by bowel gas. This results in nonvisualization of the pancreas, proximal aorta and distal common bile duct. [facility]
[2019-09-27] MEDS: NEUTRA-PHOS 250 MG TABLET PO SCH ×2 (08:48→10:55)
[2019-09-27] MEDS: ASPIRIN CHEW 81 MG TABLET PO SCH (08:55)
[2019-09-27] MEDS: THIAMINE 100 MG TABLET PO SCH (08:55)
[2019-09-27] MEDS ORDERED: MULTIVITAMIN TABLET PO SCH (09:00)
[2019-09-27] MEDS ORDERED: polyethylene glycoL 3350 17 GM PACKET PO SCH (09:00)
[2019-09-27] MEDS ORDERED: levETIRAcetam 250 MG TABLET PO SCH (10:00)
--- NOTE | 2019-09-27 15:49 | PROVIDER PROGRESS NOTE ---
Subjective - Prog Note Date Prog Note Date: 09/27/19 Prog Note Time: 15:47 - Subjective Subjective: I am the daytime hospitalist taking care of the patient for the next few days. In reviewing the medical record he has a known history of a seizure disorder and has been seen in the emergency room March 2016 for noncompliance with medications resulting in seizure, admitted September 2018 for witnessed seizure, leukocytosis, metabolic acidosis and alcohol abuse. I have reviewed the history and physical from September 25. He had a seizure at home, then another seizure in his room on MedSurg. This resulted in transfer to ICU. He is on IV Keppra. He has received Ativan several times and Librium to prevent alcohol withdrawal. He has urgency, frequency, and urinalysis has been negative for a UTI. He is still in the ICU this morning. Responds to my voice and will smile. Ask me how I am doing. But his speech is slurred, psychomotor slowing evident. Current Medications - Current Medications Current Medications: My Active Orders 09/27/[address] [ST] Routine Evaluate and Treat PT [PT] Routine 09/27/19 10:00 levETIRAcetam [Keppra] 750 mg PO BID 09/27/19 Lunch Regular Diet [DIET] Objective - Vital Signs/Intake & Output Reviewed Vital Signs: Yes Vital Signs: Vital Signs x48h Temp Pulse Pulse Pulse Resp BP BP 09/27/19 13:09 83 159/81 H 09/27/19 13:00 86 84 179/76 H 09/27/19 10:07 83 23 157/88 H 09/27/19 10:00 37 C 124 H 15 09/27/19 09:00 36.6 C 69 11 L 150/78 H 09/27/19 08:00 72 14 136/80 H BP BP Pulse Ox 09/27/19 13:09 09/27/19 13:00 159/81 H 09/27/19 10:07 09/27/19 10:00 176/98 H 96 09/27/19 09:00 98 09/27/19 08:00 Intake & Output: Intake & Output 09/24/19 09/25/19 09/26/19 09/27/19 23:59 23:59 23:59 23:59 Intake Total 107.5 4337.500 1580 Output Total 975 1335 Balance 107.5 3362.500 245 - Objective General Appearance: positive: No acute distress, Other (Slight speech slowing, but follows my questions appropriately. Eating clear liquids. Asking for more food.) Eyes Bilateral: positive: PERRL, EOMI ENT: positive: Pharynx nml Neck: positive: No JVD Respiratory: positive: Chest non-tender, No respiratory distress. negative: Wheezes, Rales, Rhonchi Cardiovascular: positive: Regular rate & rhythm. negative: Gallop/S4, Friction rub Abdomen: positive: Non-tender, No organomegaly, Nml bowel sounds, No distention Skin: positive: Warm, Dry Extremities: positive: Non-tender, No pedal edema Neurologic/Psychiatric: positive: CN's nml (2-12), Disoriented to time, Slurred/abnml speech. negative: Motor nml (Slow to move, slow to respond, when he sits up ataxic and needs a two-person assist to stand at the side of him to maintain his balance. When he does get up, starts moving forward with his head down and starts rushing 1 or 2 steps forward before he is able to catch himself) - Lab Results Fish Bones: 09/27/19 06:01 09/27/19 06:01 Other Labs: Lab Results x24hrs 09/27/19 09/27/19 Range/Units 06:01 06:01 WBC 9.0 (4.8-10.8) x10^3/uL RBC 4.18 L (4.70-6.10) 10^6/uL Hgb 13.9 L (14.0-18.0) g/dL Hct 41.1 L (42.0-52.0) % MCV 98.3 H (80.0-94.0) fL MCH 33.3 H (27.0-31.0) pg MCHC 33.8 (32.0-36.0) g/dL RDW 12.3 (12.0-15.0) % Plt Count 261 (130-450) 10^3/uL MPV 10.9 (7.4-11.4) fL Neut # (Auto) 6.3 (1.5-6.6) 10^3/uL Lymph # (Auto) 1.7 (1.5-3.5) 10^3/uL [place] # (Auto) 0.8 (0.0-1.0) 10^3/uL Eos # (Auto) 0.1 (0.0-0.7) 10^3/uL Baso # (Auto) 0.0 (0.0-0.1) 10^3/uL Absolute Nucleated RBC 0.00 x10^3/uL Nucleated RBC % 0.0 /100WBC Sodium 138 (135-145) mmol/L Potassium 3.5 (3.5-5.0) mmol/L Chloride 105 (101-111) mmol/L Carbon Dioxide 23 (21-32) mmol/L Anion Gap 10.0 (6-13) BUN 13 (6-20) mg/dL Creatinine 1.0 (0.6-1.2) mg/dL Estimated GFR (MDRD) 73 L (>89) Glucose 95 (70-100) mg/dL Calcium 8.5 (8.5-10.3) mg/dL Phosphorus 2.2 L (2.5-4.6) mg/dL Magnesium 1.9 (1.7-2.8) mg/dL Lipase 236 H (22-51) U/L ABX Reporting Has patient been on IV antibiotics over the past 48 hours?: No Assessment/Plan - Problem List (1) Altered mental status Impression: He received Ativan several times and is now on Librium to prevent alcohol withdrawal. He was suppose to have the Librium dose decreased to prevent oversedation yesterday but is still on 10 mg q6. CIWA protocol with Ativan ordered as needed, the doses will also be decreased, but is on 0.5 mg IV Plan: Continue to monitor as we restart po Keppra today before discharge home Transfer from ICU stop librium PT eval Cognitive eval (2) Seizure Assessment/Plan: He had presented because he had a prolonged confusion when he was postictal after a seizure at home, which a family member saw. He then had a seizure in the ER and received IV Ativan. Then another seizure on Med surg resulting in transfer to ICU. He was witnessed to have thrown up his Keppra p.o. More awake today. Plan: transfer to floor status advance diet to regular change to po keppra (3) Elevated lipase Assessment/Plan: The elevated lipase level decreased by half on recheck just 10 hours later (780>> 340) This could have been his symptoms of nausea and vomiting and why he could not keep down the Keppra for example. Ultrasound done for pancreatitis shows lobular echogenic avascular right liver mass. No intrahepatic bile duct dilatation. Normal gallbladder. Common bile duct 6.9 mm. Pancreas obscured by gas. It is felt that incidental homogenous hyperechoic liver lesions discovered in patients without known malignancy or liver disease are almost always hepatic and angiomas. Advance diet. (4) Dysuria Assessment/Plan: As he became more awake, daytime shift nurse 09/26/19 has gotten complaints from him of burning when he urinates and urgency and frequency. urinarlysis is normal, no UTI Ordered Pyridium for symptomatic management. He is not complaining of this as much but still getting up to bathroom w ataxia. (5) ETOH abuse Assessment/Plan: There was no alcohol on serum toxicology testing however he is too sedated answer previous hospitalist when his last alcohol intake was. He remains on a CIWA protocol with as needed Ativan. Librium was also started on a scheduled pattern, this was over sedating him. Stop it today. 09/26/19 at 1830, the child protective services social worker had a discussion with his caregiver who is his great niece who everybody called his daughter yesterday: She stated that he has not been drinking alcohol because she sees him daily and that he has been having abdominal pain recently and throwing up intermittently. Advance diet. (6) Hypertension Assessment/Plan: Start p.o. home meds when they are reconciled, if he has stopped vomiting, otherwise iv forms (7) Methamphetamine abuse Assessment/Plan: As per history from the daughter at the time of admission. His tox screen did show amphetamines (+). Therefore some of his somnolence may be from withdrawal of meth
[2019-09-27 16:10] VITALS: BP 158/99
--- NOTE | 2019-09-27 16:13 | Discharge Plan ---
Discharge Plan Problem Reviewed?: Yes Disposition: Home, Self Care Condition: Good Diet: Regular Activity Restrictions: Activity as Tolerated Shower Restrictions: No Driving Restrictions: Yes (no driving) Instruction Topics: Amphetamine Screen Urine, Epilepsy Meds, Abuse Meth Abuse and Addiction Health Concerns: You presented as a seizure at home, had another seizure in the emergency room, and then another seizure when you arrived at the medical surgical unit. You do have his history of seizure disorder and have been admitted 2 more times prior to this with seizures. With this admission your toxicology screen was positive for amphetamines and cannabinoids. Alcohol level was 0. You became very confused, lethargic, and we were worried that you were going to go through alcohol withdrawal. However that was not a problem. You had no further seizures once your Keppra was resumed. Plan of Treatment: 1. Thiamine and folate was given to you in case you were drinking. 2. Keppra was given to you IV and was changed to by mouth. 3. CT scan of the head was negative. Blood work was negative for dehydration, infection. Care Goals: Please make sure you take your seizure medications on a regular basis. Do not use any recreational substances whatsoever, including cannabis. See your primary care provider in the next 2 to 3 weeks. Assessment: Nephew is with him. Patient and nephew both say they will follow through with seeing primary care provider, and understand goals with regards to not using any recreational substances whatsoever. Additional Instructions or Follow Up instructions: Per ER MD: He was seen today for a seizure. He needs to stay away from alcohol and other drugs. He may be felt developing some dementia, follow-up with his primary care physician and start advanced care planning because I am not sure how much longer you will be able to care for him in the home. Your blood pressure was elevated today on check into the emergency department. This does not mean that you have hypertension, it is a common phenomenon to come to the emergency department and have elevated blood pressure. I recommend that you see your primary care physician within the week to have it rechecked when you are feeling better. No Smoking: If you smoke, Please STOP! Call for help. Follow-up with: John Elias MD [Primary Care Provider] -
[2019-09-27] MEDS ORDERED: TAMSULOSIN 0.4 MG CAPSULE PO SCH (21:35)
--- NOTE | 2019-09-28 13:23 | DISCHARGE SUMMARY ---
Physician: Dalia Arrington MD DATE OF ADMISSION: 09/25/2019 DATE OF DISCHARGE: 09/27/2019 DISCHARGE DIAGNOSES 1. Altered mental status. 2. Seizure disorder. 3. Elevated lipase. 4. Dysuria. 5. Alcohol abuse. 6. Hypertension. 7. Methamphetamine abuse. DISCHARGE MEDICATIONS 1. Aspirin 81 mg a day. 2. Theragran tablet daily. 3. Zocor 40 mg daily. 4. Keppra 750 mg p.o. b.i.d. 5. Metoprolol 12.5 mg b.i.d. PRINCIPAL PROCEDURES 1. Head CT, chronic and senescent changes, no acute intracranial process. 2. Abdominal ultrasound done for elevated lipase, showing a lobular echogenic avascular right liver mass measuring 1.6 x 1.4 x 1.2 cm. No intrahepatic bile duct dilatation. Common bile duct 6.9 mm. Incidental homogenous hyperechoic liver lesion discovered in patients without known malignancy or liver disease are almost always hepatic hemangiomas. HOSPITAL COURSE: Patient is a 74-year-old male who is well known to our service. He has noncompliance with his medications and has been admitted or seen in the emergency room with seizures several times. Unfortunately, he also has alcohol abuse. He was last seen in the emergency room 12 days ago for seizure. Discharged to home from the emergency room at that time. However, today, the postictal period seems to be lasting much longer, prompting family to call EMS. The patient continued exhibiting odd behavior upon arrival to the emergency room. He urinated on the floor after standing. His last drink was 09/24/2019. Tox screen negative for alcohol, but positive for marijuana and methamphetamines. Lipase was 780. Because he was continuing to be altered, he was presented to the hospitalist service as a possible observation patient. His exam in the emergency room showed him to be afebrile, mildly hypertensive at 172/92. Respirations 16 and 98% on room air. He appeared to be slightly sedated, with his postictal state. He was disoriented to person, place, and time, but no focal neurological deficits. Upon coming to the hospital, he had another seizure on Med/Surg and as such was transferred to ICU for closer observation. He was given IV Keppra. Also given Ativan the day after admission. He was quite sedated from the Ativan, and as such spent 2 midnights in observation status. On the morning of discharge, he was still a little sleepy, not completely oriented to person, place and time. He was seen by physical therapy and has a steady wide-stance standing, but with turning is unsteady. He grabs and staggers. He does have marked sway and uses a wall or furniture to keep balance. On a Tinetti score, he scored 8 points and is at high risk for falls. He also appears to have cognitive deficits that are concerning to social work. Speech therapy cognitive evaluation also found to have severe cognitive deficits. It is recommended that patient continue to get physical therapy and probable occupational therapy and cognitive rehabilitation. Patient and nephew were adamant that he was ready to go home, that he was back to mental baseline. I reminded the patient not to use recreational substances, such as the amphetamines that were found in his urine tox screen. No cannabis. No alcohol. His slurred abnormal speech from this morning had resolved. Psychomotor slowing is still present, but the patient, again, is adamant and wants to go home. Ultrasound was done for his elevated lipase and was as above. He may need followup CT or MRI of the liver for the lobular mass, as most it is likely hemangioma. He is to resume his home blood pressure medications for his hypertension seen during his stay. When I have recommended that he take thiamine and folate in the outpatient setting. He did have mild hypokalemia of 3.4, which was supplemented during his stay. PHYSICAL EXAMINATION VITAL SIGNS: At discharge, temperature was 36.8, pulse was 83-100, blood pressure 158/99, respirations 20, and 98% on room air. GENERAL: He is a 5 feet 7 inch, 63 kilograms white male who is with male pattern baldness, sitting back in the chair with ankles crossed. Speech is slightly slow but it is lucid, deliberate and appropriate thought process behind it. There are no tremors. No agitation. NECK: Supple. No goiter or bruits. LUNGS: Clear to auscultation and percussion. HEART: PMI is normally placed with a regular rate and rhythm. ABDOMEN: Benign. Normal bowel sounds. No epigastric or left upper quadrant pain. EXTREMITIES: Ankles or thin without edema. NEUROLOGIC: He is oriented to place and person, but not date and time. There is no tremulousness, and when he stands he does need the furniture to steady himself. Nephew states that he is always off balance at home. We did warn him about his fall risk. FOLLOWUP: He is asked to follow up with his primary care provider in the next 1-2 weeks to make sure he stays compliant with his Keppra. Do not drink. TD: 09/28/2019 12:30 BASIL
== END 2019-09-27 17:32 | disposition home or self-care (01) | DRG 101 ==
LOC: EDUNIT# → ED 18:16 → MS2 21:29 → OBSVTOIN 23:18 → ICU 23:31 → MS2 09-27 11:01
PROVIDERS: ADMIT Internal Medicine; ATTEND Specialist
DX: R56.9 Unspecified convulsions (principal); G40.909 Epilepsy, unspecified, not intractable, without status epilepticus; R41.82 Altered mental status, unspecified; R41.840 Attention and concentration deficit; R41.841 Cognitive communication deficit; F10.10 Alcohol abuse, uncomplicated; F15.10 Other stimulant abuse, uncomplicated; R30.0 Dysuria; R39.15 Urgency of urination; R35.0 Frequency of micturition; E87.6 Hypokalemia; R82.5 Elevated urine levels of drugs, medicaments and biological substances; I10 Essential (primary) hypertension; E78.5 Hyperlipidemia, unspecified; D18.03 Hemangioma of intra-abdominal structures; R79.89 Other specified abnormal findings of blood chemistry; F17.200 Nicotine dependence, unspecified, uncomplicated; Z79.82 Long term (current) use of aspirin; Z91.81 History of falling
CPT/HCPCS: 36415; 70450; 76700; 80048; 80053; 81001; 83690; 83735; 84100; 85025; 87150; 96125; 96361; 96365; 96366; 96367; 96368; 96375; 96376; 97161; 99285; A9270; G0378; J2060; Q0162; 80306; 80320; 81003; 87086

== ENCOUNTER 2019-10-20 08:58 | Emergency (ER) | payer MEDICARE ==
[2019-10-20] MEDS ORDERED: KETOROLAC 30 MG/ML VIAL IVP STA (09:36)
--- NOTE | 2019-10-20 09:41 | ED Physician Documentation ---
History of Present Illness - Stated complaint Stated Complaint: CHEST PX - Chief complaint Chief Complaint: Cardiac - History obtained from History obtained from: Patient - Additonal information Additional information: Patient comes emergency department complaining of chest pain that started this morning. He states it is a sharp pain that is In his inferior substernal area. Patient states that he has had this pain many times before, and thinks he has been having these episodes for about 6 months. He does have a history of coronary artery disease and [place], though he cannot really provide any further information about this. Patient states he also had chest pain yesterday. Patient states he took a fall yesterday and again today. He states he is not able to remember the details of the falls, but that he has been having a lot of falls over recent months. Patient states that he moved up from [place] about 3 months ago and lives with his sister and [id number]. He does not know if he has a primary care physician here. He states that he does not know if he has had his heart checked out anytime recently. He deniesVomiting but states he has been nauseated. No shortness of breath currently. He does state it hurts to take a deep breath sometimes. Patient denies any fevers or chills. No cough. No other complaints at this time. Nobody else is available at this moment to provide further history Review of Systems Ten Systems: 10 systems reviewed and negative Constitutional: reports: Reviewed and negative Eyes: reports: Reviewed and negative Ears: reports: Reviewed and negative Nose: reports: Reviewed and negative Throat: reports: Reviewed and negative Cardiac: reports: Chest pain / pressure Respiratory: reports: Reviewed and negative GI: reports: Nausea. denies: Abdominal Pain, Vomiting : reports: Reviewed and negative Skin: reports: Reviewed and negative Musculoskeletal: reports: Reviewed and negative Neurologic: reports: Reviewed and negative Psychiatric: reports: Reviewed and negative Endocrine: reports: Reviewed and negative Immunocompromised: reports: Reviewed and negative PD PAST MEDICAL HISTORY - Past Medical History Cardiovascular: None, Hypertension, High cholesterol Respiratory: None Neuro: Seizure disorder Endocrine/Autoimmune: None GI: None : None HEENT: None Psych: None Musculoskeletal: None Derm: None - Present Medications Home Medications: Ambulatory Orders Medication Instructions Recorded Confirmed Aspirin Chewable [[place] 81 mg PO DAILY 10/02/18 09/25/19 Aspirin] Multivitamin [Theragran] 1 each PO DAILY 10/02/18 09/25/19 Simvastatin [Zocor] 40 mg PO QPM 10/02/18 09/25/19 Metoprolol Tartrate [Lopressor] 12.5 mg PO BID #60 tablet 10/04/18 09/25/19 Multivitamin W/Minerals [Theragran 1 tab PO DAILYWM tablet 10/04/18 09/25/19 M] levETIRAcetam [Keppra] 750 mg PO BID #180 tablet 10/04/18 09/25/19 polyethylene glycoL 3350 [Miralax] 17 gm PO DAILY packet 10/04/18 09/25/19 - Allergies Allergies/Adverse Reactions: Allergies Allergy/AdvReac Type Severity Reaction Status Date / Time No Known Drug Allergies Allergy Verified 10/20/19 09:29 - Social History Does the pt smoke?: Yes Smoking Status: Current every day smoker - POLST Patient has POLST: No POLST Status: Full Code PD ED PE NORMAL - Vitals Vital signs reviewed: Yes - General General: Alert and oriented X 3, No acute distress, Other (Patient appears moderately uncomfortable intermittently. He catches his breath occasionally and groans, pushing on his xiphoid area.) - HEENT HEENT: PERRL - Neck Neck: Supple, no meningeal sign - Cardiac Cardiac: RRR, No murmur - Respiratory Respiratory: Clear bilaterally - Abdomen Abdomen: Normal bowel sounds, Soft, Non tender, Non distended - Derm Derm: Warm and dry - Extremities Extremities: No deformity - Neuro Neuro: Alert and oriented X 3 - Psych Psych: Normal mood, Normal affect Results - Vitals Vitals: Vital Signs - 24 hr 10/20/19 10/20/19 10/20/19 09:00 10:17 11:30 Temperature 36 C L Heart Rate 71 71 80 Respiratory 20 16 Rate Blood Pressure 170/99 H 159/94 H 145/99 H O2 Saturation 99 98 10/20/19 10/20/19 12:00 12:45 Temperature Heart Rate 67 83 Respiratory 18 16 Rate Blood Pressure 147/91 H 133/95 H O2 Saturation 97 97 Oxygen O2 Source Room air - EKG (time done) 0905 Rate: Rate (enter#) (73) Rhythm: NSR [place]: Normal Intervals: RBBB QRS: Normal Ischemia: Normal ST segments. No: Hyperacute T waves, T wave inversion Compare to prior EKG: Old EKG unavailable Computer interpretation: Agree with computer - Labs Labs: Laboratory Tests 10/20/19 10/20/19 10/20/19 09:54 09:54 09:54 WBC 7.0 RBC 4.24 L Hgb 14.2 Hct 39.8 L MCV 93.9 MCH 33.5 H MCHC 35.7 RDW 12.1 Plt Count 263 MPV 10.7 Neut # (Auto) 4.4 Lymph # (Auto) 1.9 [place] # (Auto) 0.6 Eos # (Auto) 0.1 Baso # (Auto) 0.0 Absolute Nucleated RBC 0.00 Nucleated RBC % 0.0 Sodium 138 Potassium 3.8 Chloride 106 Carbon Dioxide 23 Anion Gap 9.0 BUN 21 H Creatinine 1.0 Estimated GFR (MDRD) 73 L Glucose 100 Calcium 9.1 Total Bilirubin 0.8 AST 17 ALT 17 Alkaline Phosphatase 92 Total Creatine Kinase 87 CK-MB (CK-2) 2.0 Troponin I High Sens Total Protein 6.9 Albumin 4.1 Globulin 2.8 Albumin/Globulin Ratio 1.5 Lipase 379 H 10/20/19 09:54 WBC RBC Hgb Hct MCV MCH MCHC RDW Plt Count MPV Neut # (Auto) Lymph # (Auto) [place] # (Auto) Eos # (Auto) Baso # (Auto) Absolute Nucleated RBC Nucleated RBC % Sodium Potassium Chloride Carbon Dioxide Anion Gap BUN Creatinine Estimated GFR (MDRD) Glucose Calcium Total Bilirubin AST ALT Alkaline Phosphatase Total Creatine Kinase CK-MB (CK-2) Troponin I High Sens 5.7 Total Protein Albumin Globulin Albumin/Globulin Ratio Lipase - Rads (name of study) cxr Radiology: Final report received, EMP read indepedently (Final impression: No acute disease) PD MEDICAL DECISION MAKING - ED course Complexity details: reviewed old records, reviewed results, re-evaluated patient, considered differential, d/w patient ED course: Patient was worked up with labs, EKG, and chest x-ray, and treated with Toradol.Work-up was unremarkable. The patient was found to be feeling much better after symptomatic treatment, and I feel he was stable for discharge home. I had spoken with his nephew, who lives in the same house as the patient and had arrived in the emergency department. He stated that the patient had been having episodes of chest pain for months and that he also had had a number of falls over the last several months. He has follow-up with primary care and can follow-up these issues with them. We have discussed home management of the symptoms, as well as the usual indications for return. Departure - Departure Disposition: 01 Home, Self Care Clinical Impression: Chest pain, Fall Condition: Fair Instructions: ED Chest Pain Noncardiac Ch Comments: Your labs and EKG look good. There is no evidence of an emergent condition causing your pain.Please follow-up with your primary care physicianIf you continue to have episodes of chest pain to discuss whether you should have a stress test done or not. Discharge Date/Time: 10/20/19 13:21
[2019-10-20 10:01] LABS: BASOPHILS % (AUTO) 0.3 %; EOSINOPHILS # (AUTO) 0.1 10^3/uL (0.0-0.7); EOSINOPHILS % (AUTO) 1.1 %; HGB - HEMOGLOBIN 14.2 g/dL (14.0-18.0); LYMPHOCYTES # (AUTO) 1.9 10^3/uL (1.5-3.5); MEAN CORPUSCULAR HEMOGLOBIN 33.5 pg (27.0-31.0); MEAN CORPUSCULAR HGB CONC 35.7 g/dL (32.0-36.0); MEAN CORPUSCULAR VOLUME 93.9 fL (80.0-94.0); MEAN PLATELET VOLUME 10.7 fL (7.4-11.4); MONOCYTES # (AUTO) 0.6 10^3/uL (0.0-1.0); MONOCYTES % (AUTO) 8.3 %; NEUTROPHILS # (AUTO) 4.4 10^3/uL (1.5-6.6); NEUTROPHILS % (AUTO) 62.9 %; PLT - PLATELET COUNT 263 10^3/uL (130-450); RED BLOOD COUNT 4.24 10^6/uL (4.70-6.10); RED CELL DISTRIBUTION WIDTH 12.1 % (12.0-15.0)
[2019-10-20 10:17] LABS: ALBUMIN 4.1 g/dL (3.2-5.5); ALBUMIN/GLOBULIN RATIO 1.5 (1.0-2.2); BILIRUBIN,TOTAL 0.8 mg/dL (0.2-1.0); CALCIUM 9.1 mg/dL (8.5-10.3); TOTAL PROTEIN 6.9 g/dL (6.7-8.2)
--- NOTE | 2019-10-20 10:40 | XRAY Report ---
Reason: chest pain Procedure Date: 10/20/2019 Accession Number: [id number] / [id number] Procedure: XR - Chest 1 View X-Ray CPT Code: 42573 Final Report FULL RESULT: EXAM: CHEST RADIOGRAPHY EXAM DATE: 10/20/2019 10:18 AM. CLINICAL HISTORY: Chest pain. COMPARISON: ABDOMEN COMPLETE 09/27/2019 6:51 AM CERVICAL SPINE W/O 09/12/2019 4:59 PM. TECHNIQUE: 1 view. FINDINGS: Lungs/Pleura: No focal opacities evident. No pleural effusion. No pneumothorax. Mediastinum: Within exam limitations, the cardiomediastinal contour is normal. Other: Left glenohumeral osteoarthritis. IMPRESSION: No acute radiographic cardiopulmonary process RADIA
[2019-10-20 13:01] VITALS: BP 133/95
== END 2019-10-20 13:21 | disposition home or self-care (01) ==
LOC: ED 08:58
DX: R07.89 Other chest pain (principal); R11.0 Nausea; R29.6 Repeated falls; I45.10 Unspecified right bundle-branch block; I25.10 Atherosclerotic heart disease of native coronary artery without angina pectoris; I25.2 Old myocardial infarction; I10 Essential (primary) hypertension; Z79.82 Long term (current) use of aspirin; F17.200 Nicotine dependence, unspecified, uncomplicated
CPT/HCPCS: 36415; 71045; 80053; 82550; 82553; 83690; 84484; 85025; 93005; 96374; 99284

== ENCOUNTER 2019-10-26 15:44 | Outpatient (CLI) | payer MEDICARE | END 2019-10-26 15:45 | disposition critical access hospital (66) | LOC: EMS 15:44 | PROVIDERS: ATTEND Surgery | DX: R41.82 Altered mental status, unspecified (principal) | CPT/HCPCS: A0425; A0429 ==

== ENCOUNTER 2019-10-26 16:02 | Emergency (ER) | payer MEDICARE ==
--- NOTE | 2019-10-26 16:18 | ED Physician Documentation ---
History of Present Illness - Stated complaint Stated Complaint: UNRESPONSIVE - History obtained from History obtained from: Patient - Additonal information Additional information: Patient is brought to the emergency department via EMS for altered level of consciousness. Patient apparently was given "5 mg of Xanax" by his family/caregivers earlier this afternoon. According to medics, caregiver state they found the patient on the floor sometime later, though not exactly sure how long, and a sleep like state. Patient was unarousable and so they called EMS. EMS states patient has been unarousable for them, although they have not atte mpted to apply noxious stimuli. The patient arouses with sternal rub, and denies taking any drugs or alcohol today. He denies any complaints at this time. He states he is not been sick with anything recently. No chest pain, other than where I sternally rubbed him, no shortness of breath, abdominal pain, nausea or vomiting.Patient has a history of methamphetamine abuse. He does not remember the last time he took meth. Medics state they were told that the patient was given "5" milligrams of Xanax, not "0.5" milligrams. No other medications known to be administered recently. Review of Systems Ten Systems: 10 systems reviewed and negative Constitutional: reports: Reviewed and negative Eyes: reports: Reviewed and negative Ears: reports: Reviewed and negative Nose: reports: Reviewed and negative Throat: reports: Reviewed and negative Cardiac: reports: Reviewed and negative Respiratory: reports: Reviewed and negative GI: reports: Reviewed and negative : reports: Reviewed and negative Skin: reports: Reviewed and negative Musculoskeletal: reports: Reviewed and negative Neurologic: reports: Reviewed and negative Psychiatric: reports: Reviewed and negative Endocrine: reports: Reviewed and negative Immunocompromised: reports: Reviewed and negative PD PAST MEDICAL HISTORY - Past Medical History Cardiovascular: None, Hypertension, High cholesterol Respiratory: None Neuro: Seizure disorder Endocrine/Autoimmune: None GI: None : None HEENT: None Psych: None Musculoskeletal: None Derm: None - Present Medications Home Medications: Ambulatory Orders Medication Instructions Recorded Confirmed Aspirin Chewable [St Price 81 mg PO DAILY 10/02/18 09/25/19 Aspirin] Multivitamin [Theragran] 1 each PO DAILY 10/02/18 09/25/19 Simvastatin [Zocor] 40 mg PO QPM 10/02/18 09/25/19 Metoprolol Tartrate [Lopressor] 12.5 mg PO BID #60 tablet 10/04/18 09/25/19 Multivitamin W/Minerals [Theragran 1 tab PO DAILYWM tablet 10/04/18 09/25/19 M] levETIRAcetam [Keppra] 750 mg PO BID #180 tablet 10/04/18 09/25/19 polyethylene glycoL 3350 [Miralax] 17 gm PO DAILY packet 10/04/18 09/25/19 - Allergies Allergies/Adverse Reactions: Allergies Allergy/AdvReac Type Severity Reaction Status Date / Time No Known Drug Allergies Allergy Verified 10/20/19 09:29 - Social History Does the pt smoke?: Yes Smoking Status: Current every day smoker - POLST Patient has POLST: No POLST Status: Full Code PD ED PE NORMAL - Vitals Vital signs reviewed: Yes - General General: No acute distress, Well developed/nourished (He is disheveled.), Other (The patient is drowsy but answers questions appropriately when aroused with noxious stimuli.) - HEENT HEENT: Atraumatic, PERRL, EOMI, Moist mucous membranes - Neck Neck: Supple, no meningeal sign, No bony TTP - Cardiac Cardiac: RRR, No murmur - Respiratory Respiratory: No respiratory distress, Clear bilaterally - Abdomen Abdomen: Soft, Non tender, Non distended - Back Back: Other (Mild tenderness palpation of the paraspinal musculatureOf the thoracic spine. 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 He is arousable to noxious stimuli in the form of sternal rub, and is able to answer questions when aroused. He makes eye contact.) - Psych Psych: Normal mood, Normal affect Results - Vitals Vitals: Oxygen O2 Source Room air PD MEDICAL DECISION MAKING - ED course Complexity details: reviewed results, re-evaluated patient, considered differential, d/w patient ED course: Patient was worked up with labs, urine drug screen, and CT scans of the head and neck.
[2019-10-26 16:55] LABS: BASOPHILS % (AUTO) 0.3 %; EOSINOPHILS # (AUTO) 0.2 10^3/uL (0.0-0.7); EOSINOPHILS % (AUTO) 1.6 %; HGB - HEMOGLOBIN 15.2 g/dL (14.0-18.0); LYMPHOCYTES # (AUTO) 2.6 10^3/uL (1.5-3.5); LYMPHOCYTES % (AUTO) 28.1 %; MEAN CORPUSCULAR HEMOGLOBIN 31.7 pg (27.0-31.0); MEAN CORPUSCULAR HGB CONC 33.5 g/dL (32.0-36.0); MEAN CORPUSCULAR VOLUME 94.8 fL (80.0-94.0); MEAN PLATELET VOLUME 10.9 fL (7.4-11.4); MONOCYTES # (AUTO) 0.8 10^3/uL (0.0-1.0); MONOCYTES % (AUTO) 8.3 %; NEUTROPHILS # (AUTO) 5.6 10^3/uL (1.5-6.6); NEUTROPHILS % (AUTO) 61.5 %; PLT - PLATELET COUNT 238 10^3/uL (130-450); RED BLOOD COUNT 4.79 10^6/uL (4.70-6.10); RED CELL DISTRIBUTION WIDTH 12.2 % (12.0-15.0); WHITE BLOOD COUNT 9.1 x10^3/uL (4.8-10.8)
--- NOTE | 2019-10-26 17:08 | CT Report ---
Reason: fall/loc Procedure Date: 10/26/2019 Accession Number: [id number] / [id number] Procedure: CT - HEAD WO CPT Code: Final Report FULL RESULT: EXAM: CT HEAD EXAM DATE: 10/26/2019 04:44 PM. CLINICAL HISTORY: Fall/loc. COMPARISON: HEAD W/O 09/25/2019 7:53 PM. TECHNIQUE: Multiaxial CT images were obtained from the foramen magnum to the vertex. Reformats: Sagittal and coronal. IV contrast: None. In accordance with CT protocol optimization, one or more of the following dose reduction techniques were utilized for this exam: automated exposure control, adjustment of mA and/or KV based on patient size, or use of iterative reconstructive technique. FINDINGS: Parenchyma: No intraparenchymal hemorrhage. No evidence of mass, midline shift, or CT findings of acute infarction. [place]cada-white differentiation is distinct. Diffuse chronic microangiopathic white matter changes are evident. Extraaxial Spaces: Normal for age. No subdural or epidural collections identified. Ventricles: The ventricles and cortical sulci are enlarged, consistent with age-related tissue loss. Sinuses and orbits: Left maxillary sinus disease. Bones: No evidence of fracture or calvarial defect. Other: Moderate intracranial atherosclerosis. IMPRESSION: Generalized age-related cortical atrophic changes without evidence of acute intracranial abnormality. RADIA
[2019-10-26 17:09] LABS: ALBUMIN 4.3 g/dL (3.2-5.5); ALBUMIN/GLOBULIN RATIO 1.3 (1.0-2.2); ALKALINE PHOSPHATASE 103 IU/L (42-121); ALT ALANINE AMINOTRANSFERASE 20 IU/L (10-60); AST ASPARTATE AMINOTRANSFERASE 20 IU/L (10-42); BILIRUBIN,TOTAL 0.6 mg/dL (0.2-1.0); BUN - BLOOD UREA NITROGEN 16 mg/dL (6-20); CARBON DIOXIDE - CO2 27 mmol/L (21-32); CHLORIDE 101 mmol/L (101-111); GLUCOSE 96 mg/dL (70-100); LIPASE 74 U/L (22-51); SODIUM 135 mmol/L (135-145); TOTAL PROTEIN 7.5 g/dL (6.7-8.2)
--- NOTE | 2019-10-26 17:11 | CT Report ---
Reason: fall/neck pain Procedure Date: 10/26/2019 Accession Number: [id number] / [id number] Procedure: CT - CERVICAL SPINE WO CPT Code: Final Report FULL RESULT: EXAM: CT CERVICAL SPINE WITHOUT CONTRAST DATE: 10/26/2019 04:44 PM. HISTORY: Fall/neck pain. COMPARISONS: HEAD W/O 09/25/2019 7:53 PM HEAD W/O 10/26/2019 4:41 PM CERVICAL SPINE W/O 09/12/2019 4:59 PM. TECHNIQUE: Thin-section axial images were acquired of the cervical spine without contrast. Post-processing: Coronal and sagittal reformats. Other: None. In accordance with CT protocol optimization, one or more of the following dose reduction techniques were utilized for this exam: automated exposure control, adjustment of mA and/or KV based on patient size, or use of iterative reconstructive technique. FINDINGS: Alignment: Minimal right convex cervical spine curvature. No subluxation. Bones: No fracture or bone lesion from the craniocervical junction through T2. Interspace Levels/Facets: Mild osteoarthritis at the pre-dens interval. Flowing osteophyte formation anteriorly throughout the cervical and upper thoracic spine indicating diffuse idiopathic skeletal hyperostosis. Solid bony fusion at the C6-C7 disk space. Solid bony fusion left C3-C4 facet. Otherwise, multilevel mild right and moderate left cervical facet osteoarthritis. Bony foraminal stenosis which is mild on the right and moderate on the left at C2-C3, mild on the right and severe on the left at C3-C4, mild bilaterally at C4-C5, mild on the right at C5-C6, moderate on the right and mild on the left at C6-C7, moderate on the right and mild on the left at C7-T1, mild bilaterally at T1-T2 and T2-T3. Musculature: Normal. No fatty atrophy. Other: The paravertebral and prevertebral soft tissues are unremarkable. The lung apices are clear. IMPRESSION: 1. No fracture or subluxation in the cervical spine. 2. Extensive diffuse idiopathic skeletal hyperostosis in the cervical and visualized upper thoracic spine. 3. Bony fusion at the C6-C7 disk space and left facet at C3-C4. 4. Multilevel cervical bony foraminal stenosis as described above. RADIA
[2019-10-26 18:18] LABS: MUDS CUTOFF CONCENTRATIONS CUTOFF CONC BELOW:
[2019-10-26 18:40] LABS: AMPHETAMINE SCREEN,URINE POSITIVE (NEGATIVE); BENZODIAZEPINES SCREEN, URINE NEGATIVE (NEGATIVE); COCAINE SCREEN URINE NEGATIVE (NEGATIVE); METHADONE SCREEN, URINE NEGATIVE (NEGATIVE); METHAMPHETAMINES SCREEN, URINE NEGATIVE (NEGATIVE); OPIATE SCREEN, URINE NEGATIVE (NEGATIVE); OXYCODONE SCREEN, URINE NEGATIVE (NEGATIVE); PROPOXYPHENE SCREEN, URINE NEGATIVE (NEGATIVE); TRICYCLIC ANTIDEPRESSANT,URINE NEGATIVE (NEGATIVE)
[2019-10-27 03:22] VITALS: BP 137/75
== END 2019-10-27 04:45 | disposition home or self-care (01) ==
LOC: EDUNIT# → EDBD → ED 16:02
DX: T42.4X1A Poisoning by benzodiazepines, accidental (unintentional), initial encounter (principal); R41.82 Altered mental status, unspecified; I10 Essential (primary) hypertension; F17.200 Nicotine dependence, unspecified, uncomplicated
CPT/HCPCS: 36415; 70450; 72125; 80053; 80306; 80320; 83690; 85025; 99284

== ENCOUNTER 2020-05-23 07:31 | Outpatient (CLI) | payer MEDICARE, OTHER | END 2020-05-23 07:32 | disposition critical access hospital (66) | LOC: EMS 07:31 | PROVIDERS: ATTEND Surgery | DX: R56.9 Unspecified convulsions (principal) | CPT/HCPCS: A0425; A0427 ==

== ENCOUNTER 2020-05-23 07:49 | Emergency (ER) | payer MEDICARE, OTHER ==
--- NOTE | 2020-05-23 08:16 | ED Physician Documentation ---
PD HPI SEIZURE - Stated complaint Stated Complaint: SZ - Chief complaint Chief Complaint: Neuro - History obtained from History obtained from: EMS - Additional information Additional information: 74-year-old gentleman with chronic seizures, looks like they started after head injury in [place]. Also has substance issues amphetamine and alcohol abuse. He had a seizure today. History is all from the paramedics as the gentleman is still postictal and nonverbal. Reportedly this was a worse seizure than normal. Not sure what that means specifically. Review of Systems Unable to obtain: AMS PD PAST MEDICAL HISTORY - Past Medical History Cardiovascular: None, Hypertension, High cholesterol Respiratory: None Neuro: Seizure disorder Endocrine/Autoimmune: None GI: None : None HEENT: None Psych: None Musculoskeletal: None Derm: None - Present Medications Home Medications: Ambulatory Orders Medication Instructions Recorded Confirmed Aspirin Chewable [St Price 81 mg PO DAILY 10/02/18 09/25/19 Aspirin] Multivitamin [Theragran] 1 each PO DAILY 10/02/18 09/25/19 Simvastatin [Zocor] 40 mg PO QPM 10/02/18 09/25/19 Metoprolol Tartrate [Lopressor] 12.5 mg PO BID #60 tablet 10/04/18 09/25/19 Multivitamin W/Minerals [Theragran 1 tab PO DAILYWM tablet 10/04/18 09/25/19 M] levETIRAcetam [Keppra] 750 mg PO BID #180 tablet 10/04/18 09/25/19 polyethylene glycoL 3350 [Miralax] 17 gm PO DAILY packet 10/04/18 09/25/19 - Allergies Allergies/Adverse Reactions: Allergies Allergy/AdvReac Type Severity Reaction Status Date / Time No Known Drug Allergies Allergy Verified 05/23/20 08:03 - Social History Does the pt smoke?: Yes Smoking Status: Current every day smoker - POLST Patient has POLST: No POLST Status: Full Code PD ED PE NORMAL - Vitals Vital signs reviewed: Yes - General General: No acute distress, Other (He is alert and makes eye contact, he follows commands but is nonverbal) - HEENT HEENT: PERRL, EOMI - Neck Neck: Supple, no meningeal sign, No bony TTP - Cardiac Cardiac: RRR, No murmur - Respiratory Respiratory: No respiratory distress, Clear bilaterally - Abdomen Abdomen: Normal bowel sounds, Soft, Non tender - Back Back: No CVA TTP, No spinal TTP - Derm Derm: Normal color, Warm and dry - Extremities Extremities: No deformity, No tenderness to palpate, Normal ROM s pain - Neuro Neuro: No motor deficit Eye Opening: Spontaneous Motor: Obeys Commands Verbal: Incomprehensible GCS Score: 12 Results - Vitals Vitals: Vital Signs - 24 hr 05/23/20 05/23/20 05/23/20 07:56 08:03 10:10 Temperature 36.2 C L Heart Rate 60 60 64 Respiratory 18 16 20 Rate Blood Pressure 116/74 139/58 H 153/79 H O2 Saturation 96 94 99 Oxygen O2 Source Room air - Labs Labs: Laboratory Tests 05/23/20 05/23/20 05/23/20 08:39 08:39 10:00 WBC 13.6 H RBC 4.27 L Hgb 14.3 Hct 41.5 L MCV 97.2 H MCH 33.5 H MCHC 34.5 RDW 13.2 Plt Count 264 MPV 10.9 Neut # (Auto) 11.6 H Lymph # (Auto) 1.1 L [place] # (Auto) 0.7 Eos # (Auto) 0.1 Baso # (Auto) 0.0 Absolute Nucleated RBC 0.00 Nucleated RBC % 0.0 Sodium 138 Potassium 4.1 Chloride 104 Carbon Dioxide 23 Anion Gap 11.0 BUN 16 Creatinine 1.0 Estimated GFR (MDRD) 73 L Glucose 117 H Calcium 8.9 Total Bilirubin 0.7 AST 22 ALT 26 Alkaline Phosphatase 85 Total Protein 6.9 Albumin 3.9 Globulin 3.0 Albumin/Globulin Ratio 1.3 Lipase 35 Urine Color YELLOW Urine Clarity CLEAR Urine pH 7.5 Ur Specific [place] 1.020 Urine Protein NEGATIVE Urine Glucose (UA) NEGATIVE Urine Ketones NEGATIVE Urine Occult Blood TRACE-INTA Urine Nitrite NEGATIVE Urine Bilirubin NEGATIVE Urine Urobilinogen 0.2 (NORMAL) Ur Leukocyte Esterase NEGATIVE Ur Microscopic Review NOT INDICATED Urine Culture Comments NOT INDICATED Urine Opiates Screen NEGATIVE Ur Oxycodone Screen NEGATIVE Urine Methadone Screen NEGATIVE Ur Propoxyphene Screen NEGATIVE Ur Barbiturates Screen NEGATIVE Ur Tricyclics Screen NEGATIVE Ur Phencyclidine Scrn NEGATIVE Ur Amphetamine Screen NEGATIVE U Methamphetamines Scrn NEGATIVE U Benzodiazepines Scrn NEGATIVE Urine Cocaine Screen NEGATIVE U Cannabinoids Screen POSITIVE H Ethyl Alcohol < 5.0 PD MEDICAL DECISION MAKING - ED course ED course: 74-year-old gentleman with history of seizure disorder presents by ambulance with a seizure this morning. This is not a new problem for him. He was observed here for a couple of hours without recurrent seizures, his mental status returned to what looks like his baseline from review of prior charts which is still somewhat impulsive, but he was walking and talking. Departure - Departure Disposition: 01 Home, Self Care Clinical Impression: Seizure disorder Condition: Good Record reviewed to determine appropriate education?: Yes Instructions: ED Seizure Recurrent Comments: Make sure you are taking your keppra as you are supposed to. Followup with your neurologist for uncontrolled seizure disorder. Avoid alcohol and drugs. Discharge Date/Time: 05/23/20 10:51
[2020-05-23 08:44] LABS: BASOPHILS % (AUTO) 0.3 %; EOSINOPHILS # (AUTO) 0.1 10^3/uL (0.0-0.7); EOSINOPHILS % (AUTO) 0.4 %; HGB - HEMOGLOBIN 14.3 g/dL (14.0-18.0); LYMPHOCYTES # (AUTO) 1.1 10^3/uL (1.5-3.5); LYMPHOCYTES % (AUTO) 8.2 %; MEAN CORPUSCULAR HEMOGLOBIN 33.5 pg (27.0-31.0); MEAN CORPUSCULAR HGB CONC 34.5 g/dL (32.0-36.0); MEAN CORPUSCULAR VOLUME 97.2 fL (80.0-94.0); MEAN PLATELET VOLUME 10.9 fL (7.4-11.4); MONOCYTES # (AUTO) 0.7 10^3/uL (0.0-1.0); MONOCYTES % (AUTO) 5.1 %; NEUTROPHILS # (AUTO) 11.6 10^3/uL (1.5-6.6); NEUTROPHILS % (AUTO) 85.3 %; PLT - PLATELET COUNT 264 10^3/uL (130-450); RED BLOOD COUNT 4.27 10^6/uL (4.70-6.10); RED CELL DISTRIBUTION WIDTH 13.2 % (12.0-15.0); WHITE BLOOD COUNT 13.6 x10^3/uL (4.8-10.8)
[2020-05-23 08:57] LABS: ALBUMIN 3.9 g/dL (3.2-5.5); ALBUMIN/GLOBULIN RATIO 1.3 (1.0-2.2); ALKALINE PHOSPHATASE 85 IU/L (42-121); ALT ALANINE AMINOTRANSFERASE 26 IU/L (10-60); AST ASPARTATE AMINOTRANSFERASE 22 IU/L (10-42); BILIRUBIN,TOTAL 0.7 mg/dL (0.2-1.0); BUN - BLOOD UREA NITROGEN 16 mg/dL (6-20); CALCIUM 8.9 mg/dL (8.5-10.3); CARBON DIOXIDE - CO2 23 mmol/L (21-32); CHLORIDE 104 mmol/L (101-111); GLUCOSE 117 mg/dL (70-100); LIPASE 35 U/L (22-51); SODIUM 138 mmol/L (135-145); TOTAL PROTEIN 6.9 g/dL (6.7-8.2)
[2020-05-23 10:21] LABS: MUDS CUTOFF CONCENTRATIONS CUTOFF CONC BELOW:
[2020-05-23 10:25] VITALS: BP 153/79
[2020-05-23 10:28] LABS: BILIRUBIN,URINE NEGATIVE (NEGATIVE); CLARITY,URINE CLEAR (CLEAR); GLUCOSE, URINE (UA) NEGATIVE (NEGATIVE); KETONES,URINE (UA) NEGATIVE (NEGATIVE); LEUKOCYTE ESTERASE, URINE NEGATIVE (NEGATIVE); NITRITE,URINE NEGATIVE (NEGATIVE); OCCULT BLOOD,URINE TRACE-INTA (NEGATIVE); PH,URINE 7.5 PH (5.0-7.5); PROTEIN,URINE NEGATIVE (NEGATIVE); UROBILINOGEN,URINE 0.2 (NORMAL) E.U./dL (NORMAL)
[2020-05-23 10:37] LABS: AMPHETAMINE SCREEN,URINE NEGATIVE (NEGATIVE); BENZODIAZEPINES SCREEN, URINE NEGATIVE (NEGATIVE); COCAINE SCREEN URINE NEGATIVE (NEGATIVE); METHADONE SCREEN, URINE NEGATIVE (NEGATIVE); METHAMPHETAMINES SCREEN, URINE NEGATIVE (NEGATIVE); OPIATE SCREEN, URINE NEGATIVE (NEGATIVE); OXYCODONE SCREEN, URINE NEGATIVE (NEGATIVE); PROPOXYPHENE SCREEN, URINE NEGATIVE (NEGATIVE); TRICYCLIC ANTIDEPRESSANT,URINE NEGATIVE (NEGATIVE)
== END 2020-05-23 10:51 | disposition home or self-care (01) ==
LOC: EDUNIT# → ED 07:49
DX: G40.909 Epilepsy, unspecified, not intractable, without status epilepticus (principal); F17.200 Nicotine dependence, unspecified, uncomplicated
CPT/HCPCS: 36415; 80053; 80306; 80320; 81001; 81003; 83690; 85025; 87086; 99281; 99283

== ENCOUNTER 2020-11-09 08:22 | Outpatient (CLI) | payer MEDICARE | END 2020-11-09 08:23 | disposition critical access hospital (66) | LOC: EMS 08:22 | PROVIDERS: ATTEND Emergency Medicine | DX: R56.9 Unspecified convulsions (principal); S01.119A Laceration without foreign body of unspecified eyelid and periocular area, initial encounter; W22.8XXA Striking against or struck by other objects, initial encounter; Y93.89 Activity, other specified | CPT/HCPCS: A0425; A0429 ==

== ENCOUNTER 2020-11-09 08:40 | Emergency (ER) | payer MEDICARE, OTHER ==
--- NOTE | 2020-11-09 08:48 | ED Physician Documentation ---
PD HPI SEIZURE - Stated complaint Stated Complaint: SEIZURE - History obtained from History obtained from: Patient, EMS - History of Present Illness Timing - onset: Today Witnessed: Unwitnessed Number of seizures: Single Description of seizure activity: Generalized Injury during seizure: Fell, Head injury, Neck injury Associated symptoms: None History of seizures: Known seizure disorder Similar symptoms before: Diagnosis (seizure) Recently seen: Not recently seen - Additional information Additional information: 75 y/o male with a history of dementia and seizure disorder appears to have had a seizure this morning and has fallen and hit his head with a laceration. He was post ictal when medics arrived. He is having a hard time communicating here this morning on arrival. Seems like his neck hurts and he has a laceration above the left eyebrow. Review of Systems Unable to obtain: Confused, Dementia PD PAST MEDICAL HISTORY - Past Medical History Cardiovascular: None, Hypertension, High cholesterol Respiratory: None Neuro: Seizure disorder Endocrine/Autoimmune: None GI: None : None HEENT: None Psych: None Musculoskeletal: None Derm: None - Present Medications Home Medications: Ambulatory Orders Medication Instructions Recorded Confirmed Aspirin Chewable [St Price 81 mg PO DAILY 10/02/18 09/25/19 Aspirin] Multivitamin [Theragran] 1 each PO DAILY 10/02/18 09/25/19 Simvastatin [Zocor] 40 mg PO QPM 10/02/18 11/09/20 Metoprolol Tartrate [Lopressor] 12.5 mg PO BID #60 tablet 10/04/18 11/09/20 Multivitamin W/Minerals [Theragran 1 tab PO DAILYWM tablet 10/04/18 09/25/19 M] levETIRAcetam [Keppra] 750 mg PO BID #180 tablet 10/04/18 11/09/20 polyethylene glycoL 3350 [Miralax] 17 gm PO DAILY packet 10/04/18 09/25/19 - Allergies Allergies/Adverse Reactions: Allergies Allergy/AdvReac Type Severity Reaction Status Date / Time No Known Drug Allergies Allergy Verified 11/09/20 08:57 - Social History Does the pt smoke?: Yes Smoking Status: Current every day smoker - POLST Patient has POLST: No POLST Status: Full Code PD ED PE NORMAL - Vitals Vital signs reviewed: Yes (hypertensive ) - General General: No acute distress, Well developed/nourished - HEENT HEENT: PERRL, EOMI, Other (superficial lacerations above the left eyebrow. 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, No motor deficit, No sensory deficit, Normal speech Eye Opening: Spontaneous Motor: Obeys Commands Verbal: Oriented GCS Score: 15 - Psych Psych: Normal mood, Normal affect Results - Vitals Vitals: Vital Signs - 24 hr 11/09/20 11/09/20 11/09/20 08:40 09:51 09:53 Temperature 36.2 C L Heart Rate 71 63 60 Respiratory 16 19 19 Rate Blood Pressure 189/102 H 184/87 H 184/87 H O2 Saturation 95 11/09/20 10:29 Temperature Heart Rate 56 L Respiratory 20 Rate Blood Pressure O2 Saturation Oxygen O2 Source Room air - Labs Labs: Laboratory Tests 11/09/20 11/09/20 11/09/20 08:47 09:16 09:16 WBC 9.7 RBC 4.27 L Hgb 14.2 Hct 41.7 L MCV 97.7 H MCH 33.3 H MCHC 34.1 RDW 12.3 Plt Count 290 MPV 10.6 Neut # (Auto) 7.8 H Lymph # (Auto) 1.3 L [place] # (Auto) 0.5 Eos # (Auto) 0.1 Baso # (Auto) 0.0 Absolute Nucleated RBC 0.00 Nucleated RBC % 0.0 Sodium 138 Potassium 4.0 Chloride 103 Carbon Dioxide 24 Anion Gap 11.0 BUN 16 Creatinine 1.0 Estimated GFR (MDRD) 73 L Glucose 117 H Lactic Acid Calcium 9.3 Total Bilirubin 0.7 AST 18 ALT 14 Alkaline Phosphatase 113 Total Protein 7.3 Albumin 4.0 Globulin 3.3 Albumin/Globulin Ratio 1.2 Lipase 49 Urine Color Urine Clarity Urine pH Ur Specific [place] Urine Protein Urine Glucose (UA) Urine Ketones Urine Occult Blood Urine Nitrite Urine Bilirubin Urine Urobilinogen Ur Leukocyte Esterase Ur Microscopic Review Urine Culture Comments Urine Opiates Screen Ur Oxycodone Screen Urine Methadone Screen Ur Propoxyphene Screen Ur Barbiturates Screen Ur Tricyclics Screen Ur Phencyclidine Scrn Ur Amphetamine Screen U Methamphetamines Scrn U Benzodiazepines Scrn Urine Cocaine Screen U Cannabinoids Screen Ethyl Alcohol < 5.0 11/09/20 11/09/20 09:16 10:15 WBC RBC Hgb Hct MCV MCH MCHC RDW Plt Count MPV Neut # (Auto) Lymph # (Auto) [place] # (Auto) Eos # (Auto) Baso # (Auto) Absolute Nucleated RBC Nucleated RBC % Sodium Potassium Chloride Carbon Dioxide Anion Gap BUN Creatinine Estimated GFR (MDRD) Glucose Lactic Acid 1.4 Calcium Total Bilirubin AST ALT Alkaline Phosphatase Total Protein Albumin Globulin Albumin/Globulin Ratio Lipase Urine Color YELLOW Urine Clarity CLEAR Urine pH 7.0 Ur Specific [place] 1.020 Urine Protein NEGATIVE Urine Glucose (UA) NEGATIVE Urine Ketones NEGATIVE Urine Occult Blood TRACE-INTA Urine Nitrite NEGATIVE Urine Bilirubin NEGATIVE Urine Urobilinogen 0.2 (NORMAL) Ur Leukocyte Esterase NEGATIVE Ur Microscopic Review NOT INDICATED Urine Culture Comments NOT INDICATED Urine Opiates Screen NEGATIVE Ur Oxycodone Screen NEGATIVE Urine Methadone Screen NEGATIVE Ur Propoxyphene Screen NEGATIVE Ur Barbiturates Screen NEGATIVE Ur Tricyclics Screen NEGATIVE Ur Phencyclidine Scrn NEGATIVE Ur Amphetamine Screen NEGATIVE U Methamphetamines Scrn NEGATIVE U Benzodiazepines Scrn NEGATIVE Urine Cocaine Screen NEGATIVE U Cannabinoids Screen POSITIVE H Ethyl Alcohol - Rads (name of study) C-spine Radiology: Prelim report reviewed (Impression: 1. Increased diastases between bridging osteophytes at C5-6 with mild widening of the disc space compared to prior exam. Finding is suggestive of fracture at the level of the bridging osteophytes. Recommend correlation to pain within this region and as clinically indicated, further ev), EMP read indepedently, See rad report head Radiology: Prelim report reviewed (: 1. No acute intracranial evaluate. 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 Moderate chronic white matter small vessel ischemic changes with mild cerebral volume loss.), EMP read indepedently, See rad report Procedures - Laceration (location) forehead Wound type: Irregular, Flap, Superficial Neurovascular status: Sensory intact, Motor intact, Vascular intact Wound preparation: Hibiclens, Irrigated copiously NS Skin layer closure: Dermabond Other: Patient tolerated well, No complications, Neurovascular intact PD MEDICAL DECISION MAKING - ED course Complexity details: reviewed old records, reviewed results, re-evaluated patient, considered differential, d/w patient ED course: 75 y/o male with a history of seizure disorder has had a seizure this morning and has injured his face and neck. The laceration above the left eyebrow is closed with dermabond and he remains in the C-collar placed here. He continues to complain of neck pain and has tenderness to palpation and a concern for fracture on his CT scan. The radiologist has recommended MRI and we do not have capability currently for MRI. Dr. Mathew in the ED at [facility] is consulted and graciously agrees to accept the patient in transfer for the study and disposition the patient from their ED. Today his tox screen is negative, urinalysis is without evidence of infection and he appears dehydrated. He is administered IV saline. Departure - Departure Disposition: 02 Transfer Acute Care Hosp Clinical Impression: Seizure Forehead laceration Qualifiers: Encounter type: initial encounter Qualified Code(s): S01.81XA - Laceration without foreign body of other part of head, initial encounter Neck injury Qualifiers: Encounter type: initial encounter Qualified Code(s): S19.9XXA - Unspecified injury of neck, initial encounter
[2020-11-09] MEDS ORDERED: LORazepam 2 MG/ML VIAL IVP STA (08:53)
[2020-11-09 09:20] LABS: BASOPHILS % (AUTO) 0.2 %; EOSINOPHILS # (AUTO) 0.1 10^3/uL (0.0-0.7); EOSINOPHILS % (AUTO) 0.5 %; HCT - HEMATOCRIT 41.7 % (42.0-52.0); HGB - HEMOGLOBIN 14.2 g/dL (14.0-18.0); LYMPHOCYTES # (AUTO) 1.3 10^3/uL (1.5-3.5); LYMPHOCYTES % (AUTO) 13.4 %; MEAN CORPUSCULAR HEMOGLOBIN 33.3 pg (27.0-31.0); MEAN CORPUSCULAR HGB CONC 34.1 g/dL (32.0-36.0); MEAN CORPUSCULAR VOLUME 97.7 fL (80.0-94.0); MEAN PLATELET VOLUME 10.6 fL (7.4-11.4); MONOCYTES # (AUTO) 0.5 10^3/uL (0.0-1.0); MONOCYTES % (AUTO) 5.5 %; NEUTROPHILS # (AUTO) 7.8 10^3/uL (1.5-6.6); NEUTROPHILS % (AUTO) 79.9 %; PLT - PLATELET COUNT 290 10^3/uL (130-450); RED BLOOD COUNT 4.27 10^6/uL (4.70-6.10); RED CELL DISTRIBUTION WIDTH 12.3 % (12.0-15.0); WHITE BLOOD COUNT 9.7 x10^3/uL (4.8-10.8)
--- NOTE | 2020-11-09 09:35 | CT Report ---
PROCEDURE: CERVICAL SPINE WO INDICATIONS: seizure head and neck injury TECHNIQUE: Noncontrast 3 mm thick sections acquired from the skull base to the T4 level. Sagittal and coronal r eformats were then constructed. For radiation dose reduction, the following was used: automated exp osure control, adjustment of mA and/or kV according to patient size. COMPARISON: CT cervical spine 10/26/2019 FINDINGS: Image quality: Excellent. Bones: No fractures or dislocations. Visualized superior ribs are intact. Multilevel significant d egenerative changes including severe disc space narrowing at C2-3, C6-7, C7-T1. Multilevel anterior b ridging osteophytes are present most severe from C3 through C6. It is noted that in the interval sinc e the prior exam, there is increased diastases between bridging osteophytes at the level of C5-6 as w ell as mild widening of the disc space at this level. Soft tissues: Prevertebral soft tissues are normal in thickness. No paravertebral hematomas. No ap ical pneumothoraces. IMPRESSION: 1. Increased diastases between bridging osteophytes at C5-6 with mild widening of the disc space comp ared to prior exam. Finding is suggestive of fracture at the level of the bridging osteophytes. Recom mend correlation to pain within this region and as clinically indicated, further evaluation with MRI may be obtained. There is no visualized fracture within the vertebral body identified. Reviewed by: Rupali Austin MD on 11/09/2020 9:33 AM PDT Approved by: Rupali Austin MD on 11/09/2020 9:33 AM PDT Station ID: [id number]
--- NOTE | 2020-11-09 09:35 | CT Report ---
PROCEDURE: HEAD WO INDICATIONS: seizure, head injury TECHNIQUE: Noncontrast 4.5 mm thick angled axial sections acquired from the foramen magnum to the vertex. For r adiation dose reduction, the following was used: automated exposure control, adjustment of mA and/or kV according to patient size. COMPARISON: 10/26/2019, 09/25/2019. FINDINGS: Image quality: There is metallic streak artifact from patient's dental hardware. CSF spaces: Basal cisterns are patent. No extra-axial fluid collections. There is mild cerebral vo lume loss with prominence of the ventricles and sulci. Brain: No intracranial hemorrhage, mass, or mass effect. There is a hyperdensity within the left cau date head with associated volume loss. Adjacent hypodensity and volume loss is also noted within the left hidalgo radiata. The findings are compatible with sequelae of a prior infarct. Bilateral patchy p eriventricular and subcortical hypodensities are also redemonstrated consistent with moderate chronic small vessel ischemic changes. Skull and face: There is left supraorbital soft tissue swelling with a soft tissue laceration. Nikko rium and visualized facial bones are intact, without suspicious lesions. The globes appear intact. Sinuses: Visualized sinuses demonstrate mild to moderate mucosal thickening within the right maxilla ry sinus and mild thickening in the left maxillary sinus. Mastoid air cells are clear. IMPRESSION: 1. No acute intracranial evaluate. 2. 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 3. Moderate chronic white matter small vessel ischemic changes and mild cerebral volume loss. Reviewed by: Juwan Stevenson MD on 11/09/2020 9:34 AM PDT Approved by: Juwan Stevenson MD on 11/09/2020 9:34 AM PDT Station ID: [id number]
[2020-11-09 09:38] LABS: ALBUMIN/GLOBULIN RATIO 1.2 (1.0-2.2); BILIRUBIN,TOTAL 0.7 mg/dL (0.2-1.0); CALCIUM 9.3 mg/dL (8.5-10.3); TOTAL PROTEIN 7.3 g/dL (6.7-8.2)
[2020-11-09] MEDS ORDERED: SODIUM CHLORIDE 0.9% 1,000 ML IV STA (09:40)
[2020-11-09 10:19] LABS: MUDS CUTOFF CONCENTRATIONS CUTOFF CONC BELOW:
[2020-11-09] MEDS ORDERED: KETOROLAC 30 MG/ML VIAL IVP STA (10:19)
[2020-11-09 10:22] LABS: BILIRUBIN,URINE NEGATIVE (NEGATIVE); GLUCOSE, URINE (UA) NEGATIVE (NEGATIVE); KETONES,URINE (UA) NEGATIVE (NEGATIVE); LEUKOCYTE ESTERASE, URINE NEGATIVE (NEGATIVE); NITRITE,URINE NEGATIVE (NEGATIVE); OCCULT BLOOD,URINE TRACE-INTA (NEGATIVE); PROTEIN,URINE NEGATIVE (NEGATIVE); UROBILINOGEN,URINE 0.2 (NORMAL) E.U./dL (NORMAL)
[2020-11-09 10:24] LABS: CLARITY,URINE CLEAR (CLEAR)
[2020-11-09 10:32] LABS: AMPHETAMINE SCREEN,URINE NEGATIVE (NEGATIVE); BARBITURATE SCREEN,UR NEGATIVE (NEGATIVE); BENZODIAZEPINES SCREEN, URINE NEGATIVE (NEGATIVE); COCAINE SCREEN URINE NEGATIVE (NEGATIVE); METHADONE SCREEN, URINE NEGATIVE (NEGATIVE); METHAMPHETAMINES SCREEN, URINE NEGATIVE (NEGATIVE); OPIATE SCREEN, URINE NEGATIVE (NEGATIVE); OXYCODONE SCREEN, URINE NEGATIVE (NEGATIVE); PROPOXYPHENE SCREEN, URINE NEGATIVE (NEGATIVE); THC CANNABINOID SCREEN, URINE POSITIVE (NEGATIVE); TRICYCLIC ANTIDEPRESSANT,URINE NEGATIVE (NEGATIVE)
[2020-11-09 12:20] VITALS: BP 144/66
== END 2020-11-09 12:11 | disposition short-term general hospital (02) ==
LOC: EDUNIT# → ED 08:40
DX: G40.909 Epilepsy, unspecified, not intractable, without status epilepticus (principal); S01.81XA Laceration without foreign body of other part of head, initial encounter; S19.9XXA Unspecified injury of neck, initial encounter; W18.30XA Fall on same level, unspecified, initial encounter; Y92.009 Unspecified place in unspecified non-institutional (private) residence as the place of occurrence of the external cause; E86.0 Dehydration; I10 Essential (primary) hypertension; F03.90 Unspecified dementia, unspecified severity, without behavioral disturbance, psychotic disturbance, mood disturbance, and anxiety; Z79.82 Long term (current) use of aspirin; F17.200 Nicotine dependence, unspecified, uncomplicated
CPT/HCPCS: 12013; 36415; 70450; 72125; 80053; 80177; 80306; 81003; 83605; 83690; 85025; 96374; 96375; 99285; G0480; J2060; 80320; 81001; 87086

== ENCOUNTER 2020-11-09 12:10 | Outpatient (CLI) | payer MEDICARE | END 2020-11-09 12:11 | disposition short-term general hospital (02) | LOC: EMS 12:10 | PROVIDERS: ATTEND Emergency Medicine | DX: M54.2 Cervicalgia (principal) | CPT/HCPCS: A0425; A0428 ==

== ENCOUNTER 2023-01-02 20:23 | Outpatient (CLI) | payer MEDICARE | END 2023-01-02 20:24 | disposition EMS.NT | LOC: EMS 20:23 | DX: Z03.89 Encounter for observation for other suspected diseases and conditions ruled out (principal) ==

== ENCOUNTER 2023-02-07 22:43 | Outpatient (CLI) | payer MEDICARE, MEDICAID | END 2023-02-07 22:44 | disposition short-term general hospital (02) | LOC: EMS 22:43 | DX: M25.552 Pain in left hip (principal); W06.XXXA Fall from bed, initial encounter; Y92.092 Bedroom in other non-institutional residence as the place of occurrence of the external cause | CPT/HCPCS: A0425; A0429 ==

== ENCOUNTER 2023-02-14 13:52 | Outpatient (CLI) | payer MEDICARE, MEDICAID | END 2023-02-14 23:59 | disposition EMS.NT | LOC: EMS 13:52 | DX: M25.552 Pain in left hip (principal); F03.911 Unspecified dementia, unspecified severity, with agitation ==

== ENCOUNTER 2023-02-17 15:06 | Outpatient (CLI) | payer MEDICARE, MEDICAID | END 2023-02-17 15:07 | disposition critical access hospital (66) | LOC: EMS 15:06 | DX: R46.4 Slowness and poor responsiveness (principal); R63.8 Other symptoms and signs concerning food and fluid intake; R39.89 Other symptoms and signs involving the genitourinary system | CPT/HCPCS: A0425; A0427 ==

== ENCOUNTER 2023-02-17 15:19 | Emergency (ER) | payer MEDICARE, MEDICAID ==
--- OUTSIDE RECORDS SUMMARY | 2023-02-17 16:15 | EXTERNAL MEDICAL SUMMARY RPT | Continuity of Care Document ---
Author Name Unknown Address [address] [place] [address] Phone Organization [facility] Address [address] [place] [address] Phone Care Team Providers Care Stereotype Caster Name Role Phone Unavailable Unavailable Unavailable Lana Allison Unavailable Unavailable Allergies and Intolerances date description facility type (no date) No Known Drug Allergies [facility] ( unknown) Medications date description facility 2023-02-12 00:00 Oxycodone [facility] 2023-02-08 00:00 Omeprazole [facility] 2023-02-08 00:00 Acetaminophen [facility] 2023-02-08 00:00 Melatonin [facility] 2023-02-08 00:00 Cholecalciferol (Vitamin D3) [facility] with [facility] 2023-02-08 00:00 Aspirin [facility] 2023-02-08 00:00 Ferrous Sulfate [facility] 2023-02-08 00:00 Gabapentin [facility] 2023-02-08 00:00 Prazosin [facility] 2023-02-08 00:00 Sertraline [facility] 2023-02-08 00:00 Atorvastatin [facility] 2023-02-08 00:00 Diclofenac Sodium [facility] 2023-02-08 00:00 Polyethylene Glycol 3350 [facility] Problems date description facility 2023-02-08 00:00 Anemia [facility] 2023-02-08 00:00 Dementia [facility] 2023-02-08 00:00 Seizure disorder [facility] 2023-02-08 00:00 Closed fracture [facility] hip [facility] 2023-02-08 00:00 Fall from bed [facility] 2023-02-08 03:36 Fracture of unspecif ied part of neck of left femur, [facility] 2023-02-08 03:52 Fracture of unspecif ied part of neck of left femur, [facility] 2023-02-08 07:57 Fracture of unspecif ied part of neck of left femur, [facility] 2023-02-08 10:51 Anemia, unspecified [facility] 2023-02-08 10:51 Unspecified dementia , moderate, without behavioral disturban [facility] 2023-02-08 10:51 Fracture of unspecif ied part of neck of left femur, [facility] 2023-02-09 04:58 Anemia, unspecified [facility] 2023-02-09 04:58 Unspecified dementia , moderate, without behavioral disturban [facility] 2023-02-09 04:58 Fracture of unspecif ied part of neck of left femur, [facility] 2023-02-09 05:04 Anemia, unspecified [facility] 2023-02-09 05:04 Unspecified dementia , moderate, without behavioral disturban [facility] 2023-02-09 05:04 Fracture of unspecif ied part of neck of left femur, [facility] 2023-02-09 05:24 Anemia, unspecified [facility] 2023-02-09 05:24 Unspecified dementia , moderate, without behavioral disturban [facility] 2023-02-09 05:24 Fracture of unspecif ied part of neck of left femur, [facility] 2023-02-09 08:45 Anemia, unspecified [facility] 2023-02-09 08:45 Unspecified dementia , moderate, without behavioral disturban [facility] 2023-02-09 08:45 Fracture of unspecif ied part of neck of left femur, [facility] 2023-02-09 08:47 Unspecified injury of head, ini tial encounter [facility] 2023-02-09 17:02 Anemia, unspecified [facility] 2023-02-09 17:02 Unspecified dementia , moderate, without behavioral disturban [facility] 2023-02-09 17:02 Fracture of unspecif ied part of neck of left femur, [facility] 2023-02-10 08:23 Anemia, unspecified [facility] 2023-02-10 08:23 Unspecified dementia , moderate, without behavioral disturban [facility] 2023-02-10 08:23 Fracture of unspecif ied part of neck of left femur, [facility] 2023-02-10 09:55 Anemia, unspecified [facility] 2023-02-10 09:55 Unspecified dementia , moderate, without behavioral disturban [facility] 2023-02-10 09:55 Fracture of unspecif ied part of neck of left femur, [facility] 2023-02-11 09:00 Anemia, unspecified [facility] 2023-02-11 09:00 Unspecified dementia , moderate, without behavioral disturban [facility] 2023-02-11 09:00 Fracture of unspecif ied part of neck of left femur, [facility] 2023-02-11 12:44 Anemia, unspecified [facility] 2023-02-11 12:44 Unspecified dementia , moderate, without behavioral disturban [facility] 2023-02-11 12:44 Fracture of unspecif ied part of neck of left femur, [facility] 2023-02-12 08:21 Anemia, unspecified [facility] 2023-02-12 08:21 Unspecified dementia , moderate, without behavioral disturban [facility] 2023-02-12 08:21 Fracture of unspecif ied part of neck of left femur, [facility] 2023-02-12 09:28 Anemia, unspecified [facility] 2023-02-12 09:28 Unspecified dementia , moderate, without behavioral disturban [facility] 2023-02-12 09:28 Fracture of unspecif ied part of neck of left femur, [facility] 2023-02-12 12:08 Anemia, unspecified [facility] 2023-02-12 12:08 Unspecified dementia , moderate, without behavioral disturban [facility] 2023-02-12 12:08 Fracture of unspecif ied part of neck of left femur, [facility] 2023-02-12 12:46 Anemia, unspecified [facility] 2023-02-12 12:46 Unspecified dementia , moderate, without behavioral disturban [facility] 2023-02-12 12:46 Fracture of unspecif ied part of neck of left femur, [facility] 2023-02-12 13:06 Anemia, unspecified [facility] 2023-02-12 13:06 Unspecified dementia , moderate, without behavioral disturban [facility] 2023-02-12 13:06 Fracture of unspecif ied part of neck of left femur, [facility] 2023-02-16 11:49 Anemia, unspecified [facility] 2023-02-16 11:49 Unspecified dementia , moderate, without behavioral disturban [facility] 2023-02-16 11:49 Fracture of unspecif ied part of neck of left femur, initial [facility] Procedures date description facility 2023-02-08 00:00 replacement of left hip joint, femoral surface with metal synthetic substitute, cemented, open approach [facility] 2023-02-08 00:00 XR pelvis, 1-2 views [facility] 2023-02-08 00:00 Computed tomography of head or brain without contrast [facility] 2023-02-08 00:00 X-ray of chest, [facility] 2023-02-09 00:00 X-ray of chest, single view [facility] 2023-02-08 00:00 Computed tomography of cervical spine without contrast [facility] 2023-02-07 00:00 Unilateral x-ray of hip, two views, with x-ray of pelvis [facility] Results/Labs test date author facility value unit interpretation Result panel 1 (unknown) (no date) (unknown) [facility] (no value) (units unknown) (unknown) Result panel 2 (unknown) (no date) (unknown) [facility] (no value) (units unknown) (unknown) Result panel 3 (unknown) (no date) (unknown) [facility] (no value) (units unknown) (unknown) Result panel 4 (unknown) (no date) (unknown) [facility] (no value) (units unknown) (unknown) Result panel 5 (unknown) (no date) (unknown) [facility] (no value) (units unknown) (unknown) Result panel 6 (unknown) (no date) (unknown) [facility] (no value) (units unknown) (unknown) Result panel 7 (unknown) (no date) (unknown) [facility] (no value) (units unknown) (unknown) Result panel 8 (unknown) (no date) (unknown) [facility] (no value) (units unknown) (unknown) Result panel 9 (unknown) (no date) (unknown) [facility] (no value) (units unknown) (unknown) Result panel 10 (unknown) (no date) (unknown) [facility] (no value) (units unknown) (unknown) Result panel 11 (unknown) (no date) (unknown) [facility] (no value) (units unknown) (unknown) Result panel 12 (unknown) (no date) (unknown) [facility] (no value) (units unknown) (unknown) Result panel 13 (unknown) (no date) (unknown) [facility] (no value) (units unknown) (unknown) Result panel 14 (unknown) (no date) (unknown) [facility] (no value) (units unknown) (unknown) Result panel 15 (unknown) (no date) (unknown) [facility] (no value) (units unknown) (unknown) Result panel 16 (unknown) (no date) (unknown) [facility] (no value) (units unknown) (unknown) Result panel 17 (unknown) (no date) (unknown) [facility] (no value) (units unknown) (unknown) Result panel 18 (unknown) (no date) (unknown) [facility] (no value) (units unknown) (unknown) Result panel 19 (unknown) (no date) (unknown) [facility] (no value) (units unknown) (unknown) Result panel 20 (unknown) (no date) (unknown) [facility] (no value) (units unknown) (unknown) Result panel 21 (unknown) (no date) (unknown) [facility] (no value) (units unknown) (unknown) Result panel 22 (unknown) (no date) (unknown) [facility] (no value) (units unknown) (unknown) Result panel 23 (unknown) (no date) (unknown) [facility] (no value) (units unknown) (unknown) Result panel 24 (unknown) (no date) (unknown) [facility] (no value) (units unknown) (unknown) Result panel 25 (unknown) (no date) (unknown) [facility] (no value) (units unknown) (unknown) Result panel 26 (unknown) (no date) (unknown) [facility] (no value) (units unknown) (unknown) Result panel 27 (unknown) (no date) (unknown) [facility] (no value) (units unknown) (unknown) Result panel 28 (unknown) (no date) (unknown) [facility] (no value) (units unknown) (unknown) Result panel 29 (unknown) (no date) (unknown) [facility] (no value) (units unknown) (unknown) Result panel 30 (unknown) (no date) (unknown) [facility] (no value) (units unknown) (unknown) Result panel 31 (unknown) (no date) (unknown) [facility] (no value) (units unknown) (unknown) Result panel 32 (unknown) (no date) (unknown) [facility] (no value) (units unknown) (unknown) Result panel 33 (unknown) (no date) (unknown) [facility] (no value) (units unknown) (unknown) Result panel 34 (unknown) (no date) (unknown) [facility] (no value) (units unknown) (unknown) Result panel 35 (unknown) (no date) (unknown) [facility] (no value) (units unknown) (unknown) Result panel 36 (unknown) (no date) (unknown) [facility] (no value) (units unknown) (unknown) Result panel 37 (unknown) (no date) (unknown) [facility] (no value) (units unknown) (unknown) Result panel 38 (unknown) (no date) (unknown) [facility] (no value) (units unknown) (unknown) Result panel 39 (unknown) (no date) (unknown) [facility] (no value) (units unknown) (unknown) Result panel 40 (unknown) (no date) (unknown) [facility] (no value) (units unknown) (unknown) Result panel 41 (unknown) (no date) (unknown) [facility] (no value) (units unknown) (unknown) Result panel 42 (unknown) (no date) (unknown) [facility] (no value) (units unknown) (unknown) Result panel 43 (unknown) (no date) (unknown) [facility] (no value) (units unknown) (unknown) Result panel 44 (unknown) (no date) (unknown) [facility] (no value) (units unknown) (unknown) Result panel 45 (unknown) (no date) (unknown) [facility] (no value) (units unknown) (unknown) Result panel 46 (unknown) (no date) (unknown) [facility] (no value) (units unknown) (unknown) Result panel 47 (unknown) (no date) (unknown) [facility] (no value) (units unknown) (unknown) Result panel 48 (unknown) (no date) (unknown) [facility] (no value) (units unknown) (unknown) Result panel 49 (unknown) (no date) (unknown) [facility] (no value) (units unknown) (unknown) Result panel 50 (unknown) (no date) (unknown) [facility] (no value) (units unknown) (unknown) Result panel 51 (unknown) (no date) (unknown) [facility] (no value) (units unknown) (unknown) Result panel 52 (unknown) (no date) (unknown) [facility] (no value) (units unknown) (unknown) Result panel 53 (unknown) (no date) (unknown) [facility] (no value) (units unknown) (unknown) Result panel 54 (unknown) (no date) (unknown) [facility] (no value) (units unknown) (unknown) Result panel 55 (unknown) (no date) (unknown) [facility] (no value) (units unknown) (unknown) Result panel 56 (unknown) (no date) (unknown) [facility] (no value) (units unknown) (unknown) Result panel 57 (unknown) (no date) (unknown) [facility] (no value) (units unknown) (unknown) Result panel 58 (unknown) (no date) (unknown) [facility] (no value) (units unknown) (unknown) Result panel 59 (unknown) (no date) (unknown) [facility] (no value) (units unknown) (unknown) Result panel 60 (unknown) (no date) (unknown) [facility] (no value) (units unknown) (unknown) Result panel 61 (unknown) (no date) (unknown) [facility] (no value) (units unknown) (unknown) Result panel 62 (unknown) (no date) (unknown) [facility] (no value) (units unknown) (unknown) Result panel 63 (unknown) (no date) (unknown) [facility] (no value) (units unknown) (unknown) Result panel 64 (unknown) (no date) (unknown) [facility] (no value) (units unknown) (unknown) Result panel 65 (unknown) (no date) (unknown) [facility] (no value) (units unknown) (unknown) Result panel 66 (unknown) (no date) (unknown) [facility] (no value) (units unknown) (unknown) Result panel 67 (unknown) (no date) (unknown) [facility] (no value) (units unknown) (unknown) Result panel 68 (unknown) (no date) (unknown) [facility] (no value) (units unknown) (unknown) Result panel 69 (unknown) (no date) (unknown) [facility] (no value) (units unknown) (unknown) Result panel 70 (unknown) (no date) (unknown) [facility] (no value) (units unknown) (unknown) Result panel 71 (unknown) (no date) (unknown) [facility] (no value) (units unknown) (unknown) Result panel 72 (unknown) (no date) (unknown) [facility] (no value) (units unknown) (unknown) Result panel 73 (unknown) (no date) (unknown) [facility] (no value) (units unknown) (unknown) Result panel 74 (unknown) (no date) (unknown) [facility] (no value) (units unknown) (unknown) Result panel 75 (unknown) (no date) (unknown) [facility] (no value) (units unknown) (unknown) Result panel 76 (unknown) (no date) (unknown) [facility] (no value) (units unknown) (unknown) Result panel 77 (unknown) (no date) (unknown) [facility] (no value) (units unknown) (unknown) Result panel 78 (unknown) (no date) (unknown) [facility] (no value) (units unknown) (unknown) Result panel 79 (unknown) (no date) (unknown) [facility] (no value) (units unknown) (unknown) Result panel 80 (unknown) (no date) (unknown) [facility] (no value) (units unknown) (unknown) Result panel 81 (unknown) (no date) (unknown) [facility] (no value) (units unknown) (unknown) Result panel 82 (unknown) (no date) (unknown) [facility] (no value) (units unknown) (unknown) Result panel 83 (unknown) (no date) (unknown) [facility] (no value) (units unknown) (unknown) Result panel 84 (unknown) (no date) (unknown) [facility] (no value) (units unknown) (unknown) Result panel 85 (unknown) (no date) (unknown) [facility] (no value) (units unknown) (unknown) Result panel 86 (unknown) (no date) (unknown) [facility] (no value) (units unknown) (unknown) Result panel 87 (unknown) (no date) (unknown) [facility] (no value) (units unknown) (unknown) Result panel 88 (unknown) (no date) (unknown) [facility] (no value) (units unknown) (unknown) Result panel 89 (unknown) (no date) (unknown) [facility] (no value) (units unknown) (unknown) Result panel 90 (unknown) (no date) (unknown) [facility] (no value) (units unknown) (unknown) Result panel 91 (unknown) (no date) (unknown) [facility] (no value) (units unknown) (unknown) Result panel 92 (unknown) (no date) (unknown) [facility] (no value) (units unknown) (unknown) Result panel 93 (unknown) (no date) (unknown) [facility] (no value) (units unknown) (unknown) Result panel 94 (unknown) (no date) (unknown) [facility] (no value) (units unknown) (unknown) Result panel 95 (unknown) (no date) (unknown) [facility] (no value) (units unknown) (unknown) Result panel 96 (unknown) (no date) (unknown) [facility] (no value) (units unknown) (unknown) Result panel 97 (unknown) (no date) (unknown) [facility] (no value) (units unknown) (unknown) Result panel 98 (unknown) (no date) (unknown) [facility] (no value) (units unknown) (unknown) Result panel 99 (unknown) (no date) (unknown) [facility] (no value) (units unknown) (unknown) Result panel 100 (unknown) (no date) (unknown) [facility] (no value) (units unknown) (unknown) Result panel 101 (unknown) (no date) (unknown) [facility] (no value) (units unknown) (unknown) Result panel 102 (unknown) (no date) (unknown) [facility] (no value) (units unknown) (unknown) Result panel 103 (unknown) (no date) (unknown) [facility] (no value) (units unknown) (unknown) Result panel 104 (unknown) (no date) (unknown) [facility] (no value) (units unknown) (unknown) Result panel 105 (unknown) (no date) (unknown) [facility] (no value) (units unknown) (unknown) Result panel 106 (unknown) (no date) (unknown) [facility] (no value) (units unknown) (unknown) Result panel 107 (unknown) (no date) (unknown) [facility] (no value) (units unknown) (unknown) Result panel 108 (unknown) (no date) (unknown) [facility] (no value) (units unknown) (unknown) Result panel 109 (unknown) (no date) (unknown) [facility] (no value) (units unknown) (unknown) Result panel 110 (unknown) (no date) (unknown) [facility] (no value) (units unknown) (unknown) Result panel 111 (unknown) (no date) (unknown) [facility] (no value) (units unknown) (unknown) Result panel 112 (unknown) (no date) (unknown) [facility] (no value) (units unknown) (unknown) Result panel 113 (unknown) (no date) (unknown) [facility] (no value) (units unknown) (unknown) Result panel 114 (unknown) (no date) (unknown) (unknown) (no value) (units unknown) (unknown) (unknown) (no date) (unknown) (unknown) [id number] (units unknown) (unknown) (unknown) (no date) (unknown) (unknown) 02/07/23 (units unknown) (unknown) (unknown) (no date) (unknown) (unknown) [address] [place] [address] (units unknown) (unknown) (unknown) (no date) (unknown) (unknown) Accession Number: [id number] (units unknown) (unknown) (unknown) (no date) (unknown) (unknown) Age/Sex: 77 / M Date of Service: (units unknown) (unknown) (unknown) (no date) (unknown) (unknown) [place] [address] (units unknown) (unknown) (unknown) (no date) (unknown) (unknown) Approved by: Jc Vogel M.D. on 02/08/2023 at 0:13 (units unknown) (unknown) (unknown) (no date) (unknown) (unknown) Bones: No dislocations. Pelvic ring appears intact. No suspicious bony (units unknown) (unknown) (unknown) (no date) (unknown) (unknown) COMPARISON: [facility], CR, XR HIP W PEL IF DONE RT 2V, 06/16/2019, 10:40. (units unknown) (unknown) (unknown) (no date) (unknown) (unknown) : 1945 Acct:[id number] (units unknown) (unknown) (unknown) (no date) (unknown) (unknown) Dictated by: Jc Vogel M.D. on 02/08/2023 at 0:11 (units unknown) (unknown) (unknown) (no date) (unknown) (unknown) FINDINGS: (units unknown) (unknown) (unknown) (no date) (unknown) (unknown) Hospital, , XR HIP W PEL IF DONE ILEANA 3TO4V, 11/19/2018, 11:42. (units unknown) (unknown) (unknown) (no date) (unknown) (unknown) IMPRESSION: Acute fracture femoral neck on the left, superimposed moderately (units unknown) (unknown) (unknown) (no date) (unknown) (unknown) INDICATIONS: injury, fell out of bed (units unknown) (unknown) (unknown) (no date) (unknown) (unknown) [facility] (units unknown) (unknown) (unknown) (no date) (unknown) (unknown) [facility] (units unknown) (unknown) (unknown) (no date) (unknown) (unknown) Loc: ED (units unknown) (unknown) (unknown) (no date) (unknown) (unknown) Ordering Provider: Lana Allison MD (units unknown) (unknown) (unknown) (no date) (unknown) (unknown) PROCEDURE: XR HIP W PEL IF DONE LT 2V (units unknown) (unknown) (unknown) (no date) (unknown) (unknown) Patient: Donna Garcia MR#: [id number] (units unknown) (unknown) (unknown) (no date) (unknown) (unknown) Procedure: XR hip w pel if done LT 2V (units unknown) (unknown) (unknown) (no date) (unknown) (unknown) Signed (units unknown) (unknown) (unknown) (no date) (unknown) (unknown) Soft tissues: The visualized bowel gas pattern is normal. No suspicious soft (units unknown) (unknown) (unknown) (no date) (unknown) (unknown) TECHNIQUE: AP pelvis with lateral view(s) of the left hip(s). (units unknown) (unknown) (unknown) (no date) (unknown) (unknown) XRay Report (units unknown) (unknown) (unknown) (no date) (unknown) (unknown) calcifications. (units unknown) (unknown) (unknown) (no date) (unknown) (unknown) change at each hip is quite severe with iroy-eo-dirv articulation. (units unknown) (unknown) (unknown) (no date) (unknown) (unknown) is an acute impacted mildly comminuted left femoral neck fracture, and (units unknown) (unknown) (unknown) (no date) (unknown) (unknown) lesions. There (units unknown) (unknown) (unknown) (no date) (unknown) (unknown) osteoarthritic (units unknown) (unknown) (unknown) (no date) (unknown) (unknown) severe bilateral hip joint osteoarthritis. (units unknown) (unknown) (unknown) (no date) (unknown) (unknown) severe to (units unknown) (unknown) (unknown) (no date) (unknown) (unknown) tissue (units unknown) (unknown) Result panel 115 (unknown) (no date) (unknown) (unknown) (no value) (units unknown) (unknown) (unknown) (no date) (unknown) (unknown) 02/07/23 23:39 (units unknown) (unknown) (unknown) (no date) (unknown) (unknown) 02/07/23 (units unknown) (unknown) (unknown) (no date) (unknown) (unknown) 12.5 mg PO BID (units unknown) (unknown) (unknown) (no date) (unknown) (unknown) 23:26 (units unknown) (unknown) (unknown) (no date) (unknown) (unknown) [id number] (units unknown) (unknown) (unknown) (no date) (unknown) (unknown) 750 mg PO BID (units unknown) (unknown) (unknown) (no date) (unknown) (unknown) Age/Sex: 77 / M (units unknown) (unknown) (unknown) (no date) (unknown) (unknown) Allergies (units unknown) (unknown) (unknown) (no date) (unknown) (unknown) Allergy/AdvReac Type Severity Reaction Status Date / Time (units unknown) (unknown) (unknown) (no date) (unknown) (unknown) Alzheimer's dementia (units unknown) (unknown) (unknown) (no date) (unknown) (unknown) Anxiety (units unknown) (unknown) (unknown) (no date) (unknown) (unknown) Blood Pressure 131/73 02/07/23 23:26 (units unknown) (unknown) (unknown) (no date) (unknown) (unknown) Blood Pressure 131/73 (units unknown) (unknown) (unknown) (no date) (unknown) (unknown) CC: Rolled out of bed, lives at an adult family home, complaining of left hip (units unknown) (unknown) (unknown) (no date) (unknown) (unknown) Chest pain (units unknown) (unknown) (unknown) (no date) (unknown) (unknown) Chief Complaint: Extremity Injury, Lower (units unknown) (unknown) (unknown) (no date) (unknown) (unknown) Complicating co-morbidities: Seizures, BPH, depression, constipation -no (units unknown) (unknown) (unknown) (no date) (unknown) (unknown) Consultations: (units unknown) (unknown) (unknown) (no date) (unknown) (unknown) Course (units unknown) (unknown) (unknown) (no date) (unknown) (unknown) Currently lives in adult family skilled nursing (units unknown) (unknown) (unknown) (no date) (unknown) (unknown) : 1945 Acct:[id number] (units unknown) (unknown) (unknown) (no date) (unknown) (unknown) Data collected from: patient, (units unknown) (unknown) (unknown) (no date) (unknown) (unknown) Date of Service: 02/07/23 (units unknown) (unknown) (unknown) (no date) (unknown) (unknown) Departure (units unknown) (unknown) (unknown) (no date) (unknown) (unknown) Depression (units unknown) (unknown) (unknown) (no date) (unknown) (unknown) Differential considered: (units unknown) (unknown) (unknown) (no date) (unknown) (unknown) Discharge Plan (units unknown) (unknown) (unknown) (no date) (unknown) (unknown) Discussion: (units unknown) (unknown) (unknown) (no date) (unknown) (unknown) ED Orders (units unknown) (unknown) (unknown) (no date) (unknown) (unknown) ER Physician: Lana Allison MD (units unknown) (unknown) (unknown) (no date) (unknown) (unknown) Easy bruisability (units unknown) (unknown) (unknown) (no date) (unknown) (unknown) Emergency Report (units unknown) (unknown) (unknown) (no date) (unknown) (unknown) Epilepsy (units unknown) (unknown) (unknown) (no date) (unknown) (unknown) Exam documented above, pertinent findings include: (units unknown) (unknown) (unknown) (no date) (unknown) (unknown) Exam (units unknown) (unknown) (unknown) (no date) (unknown) (unknown) General (units unknown) (unknown) (unknown) (no date) (unknown) (unknown) HPI - Extremity Injury (Lower) (units unknown) (unknown) (unknown) (no date) (unknown) (unknown) Heart burn (units unknown) (unknown) (unknown) (no date) (unknown) (unknown) Home Medications (units unknown) (unknown) (unknown) (no date) (unknown) (unknown) Imaging studies independently reviewed: (units unknown) (unknown) (unknown) (no date) (unknown) (unknown) Independently reviewed EKG as above (units unknown) (unknown) (unknown) (no date) (unknown) (unknown) Initial Vital Signs (units unknown) (unknown) (unknown) (no date) (unknown) (unknown) Initial Vital Signs: (units unknown) (unknown) (unknown) (no date) (unknown) (unknown) [address] [address] (units unknown) (unknown) (unknown) (no date) (unknown) (unknown) Lab Test results independently reviewed as above. Pertinent findings: (units unknown) (unknown) (unknown) (no date) (unknown) (unknown) MDM - Extremity Injury (Lower) (units unknown) (unknown) (unknown) (no date) (unknown) (unknown) MDM Narrative (units unknown) (unknown) (unknown) (no date) (unknown) (unknown) Medical History (units unknown) (unknown) (unknown) (no date) (unknown) (unknown) Medical decision making narrative: (units unknown) (unknown) (unknown) (no date) (unknown) (unknown) Medical records reviewed: (units unknown) (unknown) (unknown) (no date) (unknown) (unknown) Medication Instructions Recorded Confirmed (units unknown) (unknown) (unknown) (no date) (unknown) (unknown) Mode of arrival: EMS (units unknown) (unknown) (unknown) (no date) (unknown) (unknown) Neck pain (units unknown) (unknown) (unknown) (no date) (unknown) (unknown) No Action (units unknown) (unknown) (unknown) (no date) (unknown) (unknown) No Known Drug Allergies Allergy Verified 11/12/20 08:34 (units unknown) (unknown) (unknown) (no date) (unknown) (unknown) No history of previous surgery (units unknown) (unknown) (unknown) (no date) (unknown) (unknown) Numbness and tingling (units unknown) (unknown) (unknown) (no date) (unknown) (unknown) Ordered: (units unknown) (unknown) (unknown) (no date) (unknown) (unknown) Orders (units unknown) (unknown) (unknown) (no date) (unknown) (unknown) Osteoarthritis (units unknown) (unknown) (unknown) (no date) (unknown) (unknown) Oxygen Delivery Method Room Air 02/07/23 23:26 (units unknown) (unknown) (unknown) (no date) (unknown) (unknown) Oxygen Delivery Method Room Air (units unknown) (unknown) (unknown) (no date) (unknown) (unknown) Pain (units unknown) (unknown) (unknown) (no date) (unknown) (unknown) Patient History (units unknown) (unknown) (unknown) (no date) (unknown) (unknown) Patient: Donna Garcia MR#: [id number] (units unknown) (unknown) (unknown) (no date) (unknown) (unknown) Prescriptions: (units unknown) (unknown) (unknown) (no date) (unknown) (unknown) Pulse Oximetry 96 02/07/23 23:26 (units unknown) (unknown) (unknown) (no date) (unknown) (unknown) Pulse Oximetry 96 (units unknown) (unknown) (unknown) (no date) (unknown) (unknown) Pulse Rate 70 02/07/23 23:26 (units unknown) (unknown) (unknown) (no date) (unknown) (unknown) Pulse Rate 70 (units unknown) (unknown) (unknown) (no date) (unknown) (unknown) RBBB (right bundle branch block) (units unknown) (unknown) (unknown) (no date) (unknown) (unknown) Re-evaluations: (units unknown) (unknown) (unknown) (no date) (unknown) (unknown) Related Data (units unknown) (unknown) (unknown) (no date) (unknown) (unknown) Respiratory Rate 16 02/07/23 23:26 (units unknown) (unknown) (unknown) (no date) (unknown) (unknown) Respiratory Rate 16 (units unknown) (unknown) (unknown) (no date) (unknown) (unknown) Seizures (units unknown) (unknown) (unknown) (no date) (unknown) (unknown) Signed By: (units unknown) (unknown) (unknown) (no date) (unknown) (unknown) Smoking Status: Current every day smoker (units unknown) (unknown) (unknown) (no date) (unknown) (unknown) Social History (System 11/12/20 @ 08:34 by Carlita Spencer) (units unknown) (unknown) (unknown) (no date) (unknown) (unknown) Social determinants of health that may influence the patients condition: (units unknown) (unknown) (unknown) (no date) (unknown) (unknown) Source: patient and EMS (units unknown) (unknown) (unknown) (no date) (unknown) (unknown) Stated Complaint: ROLL OUT OF BED WITH LEFT HIP PAIN (units unknown) (unknown) (unknown) (no date) (unknown) (unknown) Substance Use Type: marijuana (units unknown) (unknown) (unknown) (no date) (unknown) (unknown) Surgical History (units unknown) (unknown) (unknown) (no date) (unknown) (unknown) TIA (transient ischemic attack) (units unknown) (unknown) (unknown) (no date) (unknown) (unknown) Temperature 98.6 F 02/07/23 23:26 (units unknown) (unknown) (unknown) (no date) (unknown) (unknown) Temperature 98.6 F (units unknown) (unknown) (unknown) (no date) (unknown) (unknown) Time Seen by Provider: 02/07/23 23:54 (units unknown) (unknown) (unknown) (no date) (unknown) (unknown) Treatments: (units unknown) (unknown) (unknown) (no date) (unknown) (unknown) Vital Signs - 8 hr (units unknown) (unknown) (unknown) (no date) (unknown) (unknown) Vital Signs (units unknown) (unknown) (unknown) (no date) (unknown) (unknown) Vital signs: (units unknown) (unknown) (unknown) (no date) (unknown) (unknown) XR hip w pel if done LT 2V Stat (units unknown) (unknown) (unknown) (no date) (unknown) (unknown) Xr hip Acute fracture femoral neck on the left, (units unknown) (unknown) (unknown) (no date) (unknown) (unknown) alcohol intake frequency: 3 or more drinks per day (units unknown) (unknown) (unknown) (no date) (unknown) (unknown) alcohol intake: current (units unknown) (unknown) (unknown) (no date) (unknown) (unknown) anticoagulation (units unknown) (unknown) (unknown) (no date) (unknown) (unknown) household members: family (units unknown) (unknown) (unknown) (no date) (unknown) (unknown) levetiracetam 750 mg Tablet (units unknown) (unknown) (unknown) (no date) (unknown) (unknown) levetiracetam 750 mg tablet 750 mg PO BID 10/20/19 02/08/23 (units unknown) (unknown) (unknown) (no date) (unknown) (unknown) metoprolol tartrate 25 mg Tablet (units unknown) (unknown) (unknown) (no date) (unknown) (unknown) metoprolol tartrate 25 mg tablet 12.5 mg PO BID 10/20/19 02/08/23 (units unknown) (unknown) (unknown) (no date) (unknown) (unknown) pain. Acute problem uncertain prognosis (units unknown) (unknown) (unknown) (no date) (unknown) (unknown) tobacco type: cigarettes (units unknown) (unknown) Result panel 116 (unknown) (no date) (unknown) (unknown) (no value) (units unknown) (unknown) (unknown) (no date) (unknown) (unknown) [id number] (units unknown) (unknown) (unknown) (no date) (unknown) (unknown) 02/08/23 (units unknown) (unknown) (unknown) (no date) (unknown) (unknown) [facility] [address] [place] [address] (units unknown) (unknown) (unknown) (no date) (unknown) (unknown) Accession Number: [id number] (units unknown) (unknown) (unknown) (no date) (unknown) (unknown) Accession Number: [id number] (units unknown) (unknown) (unknown) (no date) (unknown) (unknown) Age/Sex: 77 / M Date of Service: (units unknown) (unknown) (unknown) (no date) (unknown) (unknown) [place] [address] (units unknown) (unknown) (unknown) (no date) (unknown) (unknown) Approved by: Jc Vogel M.D. on 02/08/2023 at 2:01 (units unknown) (unknown) (unknown) (no date) (unknown) (unknown) Approved by: Jc Vogel M.D. on 02/08/2023 at 2:03 (units unknown) (unknown) (unknown) (no date) (unknown) (unknown) Bones: No fractures or dislocations. Visualized superior ribs are intact. (units unknown) (unknown) (unknown) (no date) (unknown) (unknown) Brain: No intracranial bleeds or masses. There is cerebral volume loss for (units unknown) (unknown) (unknown) (no date) (unknown) (unknown) COMPARISON: [facility], CT, CT CERVICAL SPINE [facility], 06/16/2019, 10:43. (units unknown) (unknown) (unknown) (no date) (unknown) (unknown) COMPARISON: [facility], CT, CT HEAD/BRAIN [facility], 06/16/2019, 10:43. (units unknown) (unknown) (unknown) (no date) (unknown) (unknown) CSF spaces: Basal cisterns are patent. No extra-axial fluid collections. The (units unknown) (unknown) (unknown) (no date) (unknown) (unknown) CT Scan Report (units unknown) (unknown) (unknown) (no date) (unknown) (unknown) : 1945 Acct:[id number] (units unknown) (unknown) (unknown) (no date) (unknown) (unknown) Dictated by: Jc Vogel M.D. on 02/08/2023 at 2:00 (units unknown) (unknown) (unknown) (no date) (unknown) (unknown) Dictated by: Jc Vogel M.D. on 02/08/2023 at 2:01 (units unknown) (unknown) (unknown) (no date) (unknown) (unknown) FINDINGS: (units unknown) (unknown) (unknown) (no date) (unknown) (unknown) IMPRESSION: No acute trauma found. Metal artifact from extensive bilateral (units unknown) (unknown) (unknown) (no date) (unknown) (unknown) IMPRESSION: No trauma found. (units unknown) (unknown) (unknown) (no date) (unknown) (unknown) INDICATIONS: fall from bed with hip fx (units unknown) (unknown) (unknown) (no date) (unknown) (unknown) INDICATIONS: fell from bed, hit head, hip fx (units unknown) (unknown) (unknown) (no date) (unknown) (unknown) Image quality: Excellent. (units unknown) (unknown) (unknown) (no date) (unknown) (unknown) Image quality: Somewhat degraded by metal artifact from extensive fusion (units unknown) (unknown) (unknown) (no date) (unknown) (unknown) [facility] (units unknown) (unknown) (unknown) (no date) (unknown) (unknown) Loc: ED (units unknown) (unknown) (unknown) (no date) (unknown) (unknown) Mild chronic appearing left maxillary sinus mucosal thickening without air-fluid (units unknown) (unknown) (unknown) (no date) (unknown) (unknown) Noncontrast 3 mm thick sections acquired from the skull base to the T4 level. (units unknown) (unknown) (unknown) (no date) (unknown) (unknown) Noncontrast 4.5 mm thick angled axial sections acquired from the foramen magnum (units unknown) (unknown) (unknown) (no date) (unknown) (unknown) Ordering Provider: Lana Allison MD (units unknown) (unknown) (unknown) (no date) (unknown) (unknown) PROCEDURE: CT CERVICAL SPINE WO CON (units unknown) (unknown) (unknown) (no date) (unknown) (unknown) PROCEDURE: CT HEAD/BRAIN WO CON (units unknown) (unknown) (unknown) (no date) (unknown) (unknown) Patient: Donna Garcia MR#: [id number] (units unknown) (unknown) (unknown) (no date) (unknown) (unknown) Prior (units unknown) (unknown) (unknown) (no date) (unknown) (unknown) Procedure: CT cervical spine wo con (units unknown) (unknown) (unknown) (no date) (unknown) (unknown) Procedure: CT head/brain wo con (units unknown) (unknown) (unknown) (no date) (unknown) (unknown) Sagittal (units unknown) (unknown) (unknown) (no date) (unknown) (unknown) Signed (units unknown) (unknown) (unknown) (no date) (unknown) (unknown) Sinuses: Visualized sinuses and mastoids are clear except for mild soft tissue (units unknown) (unknown) (unknown) (no date) (unknown) (unknown) Skull and face: Calvarium and visualized facial bones appear intact, without (units unknown) (unknown) (unknown) (no date) (unknown) (unknown) Soft tissues: Prevertebral soft tissues are normal in thickness. No (units unknown) (unknown) (unknown) (no date) (unknown) (unknown) TECHNIQUE: (units unknown) (unknown) (unknown) (no date) (unknown) (unknown) age, with (units unknown) (unknown) (unknown) (no date) (unknown) (unknown) and coronal reformats were then constructed. For radiation dose reduction, the (units unknown) (unknown) (unknown) (no date) (unknown) (unknown) artery atherosclerosis. (units unknown) (unknown) (unknown) (no date) (unknown) (unknown) carotid (units unknown) (unknown) (unknown) (no date) (unknown) (unknown) devices along (units unknown) (unknown) (unknown) (no date) (unknown) (unknown) extensive spine fusion procedure along the cervical spine bilaterally. There is (units unknown) (unknown) (unknown) (no date) (unknown) (unknown) following (units unknown) (unknown) (unknown) (no date) (unknown) (unknown) hematomas. No apical pneumothoraces. (units unknown) (unknown) (unknown) (no date) (unknown) (unknown) lesions. (units unknown) (unknown) (unknown) (no date) (unknown) (unknown) level. (units unknown) (unknown) (unknown) (no date) (unknown) (unknown) matter chronic small vessel ischemic changes. There is intracranial internal (units unknown) (unknown) (unknown) (no date) (unknown) (unknown) no definite trauma is found when this is taken into account. (units unknown) (unknown) (unknown) (no date) (unknown) (unknown) no (units unknown) (unknown) (unknown) (no date) (unknown) (unknown) paravertebral (units unknown) (unknown) (unknown) (no date) (unknown) (unknown) patient (units unknown) (unknown) (unknown) (no date) (unknown) (unknown) posterior (units unknown) (unknown) (unknown) (no date) (unknown) (unknown) resultant ventricular and sulcal prominence. There are periventricular and deep (units unknown) (unknown) (unknown) (no date) (unknown) (unknown) size. (units unknown) (unknown) (unknown) (no date) (unknown) (unknown) suspicious (units unknown) (unknown) (unknown) (no date) (unknown) (unknown) the course of the cervical spine bilaterally.. (units unknown) (unknown) (unknown) (no date) (unknown) (unknown) thickening left maxillary sinus.. (units unknown) (unknown) (unknown) (no date) (unknown) (unknown) to the (units unknown) (unknown) (unknown) (no date) (unknown) (unknown) transverse pedicle screws and vertical fixation rods reduces quality of (units unknown) (unknown) (unknown) (no date) (unknown) (unknown) ventricles are symmetric in size and shape. (units unknown) (unknown) (unknown) (no date) (unknown) (unknown) vertex, with coronal and sagittal reformats. For radiation dose reduction, the (units unknown) (unknown) (unknown) (no date) (unknown) (unknown) visualization but (units unknown) (unknown) (unknown) (no date) (unknown) (unknown) visualized evidence of device loosening or disruption. (units unknown) (unknown) (unknown) (no date) (unknown) (unknown) was used: automated exposure control, adjustment of mA and/or kV according to (units unknown) (unknown) (unknown) (no date) (unknown) (unknown) white (units unknown) (unknown) Result panel 117 (unknown) (no date) (unknown) (unknown) > 60 ml/min (unknown) (unknown) (no date) (unknown) (unknown) > 60 ml/min (unknown) (unknown) (no date) (unknown) (unknown) 0.3 mg/dl (unknown) (unknown) (no date) (unknown) (unknown) 0.97 mg/dl (unknown) (unknown) (no date) (unknown) (unknown) 1.2 (units unknown) (unknown) (unknown) (no date) (unknown) (unknown) 103 mg/dl (unknown) (unknown) (no date) (unknown) (unknown) 103 mg/dl (unknown) (unknown) (no date) (unknown) (unknown) 104 mmol/l (unknown) (unknown) (no date) (unknown) (unknown) 137 mmol/l (unknown) (unknown) (no date) (unknown) (unknown) 151 u/l (unknown) (unknown) (no date) (unknown) (unknown) 16 mg/dl (unknown) (unknown) (no date) (unknown) (unknown) 16.5 (units unknown) (unknown) (unknown) (no date) (unknown) (unknown) 28 mmol/l (unknown) (unknown) (no date) (unknown) (unknown) 3.3 g/dl (unknown) (unknown) (no date) (unknown) (unknown) 3.9 g/dl (unknown) (unknown) (no date) (unknown) (unknown) 3.9 mmol/l (unknown) (unknown) (no date) (unknown) (unknown) 36 iu/l (unknown) (unknown) (no date) (unknown) (unknown) 41 iu/l (unknown) (unknown) (no date) (unknown) (unknown) 7.2 g/dl (unknown) (unknown) (no date) (unknown) (unknown) 8.8 mg/dl (unknown) Result panel 118 (unknown) (no date) (unknown) (unknown) 0 /ul (unknown) (unknown) (no date) (unknown) (unknown) 0.3 % (unknown) (unknown) (no date) (unknown) (unknown) 1.1 % (unknown) (unknown) (no date) (unknown) (unknown) 100 /ul (unknown) (unknown) (no date) (unknown) (unknown) 11.1 g/dl (unknown) (unknown) (no date) (unknown) (unknown) 16.6 % (unknown) (unknown) (no date) (unknown) (unknown) 1600 /ul (unknown) (unknown) (no date) (unknown) (unknown) 196 x10 3/ul (unknown) (unknown) (no date) (unknown) (unknown) 23.4 % (unknown) (unknown) (no date) (unknown) (unknown) 3.28 x10 6/ul (unknown) (unknown) (no date) (unknown) (unknown) 32.3 % (unknown) (unknown) (no date) (unknown) (unknown) 33.7 pg (unknown) (unknown) (no date) (unknown) (unknown) 34.2 % (unknown) (unknown) (no date) (unknown) (unknown) 4500 /ul (unknown) (unknown) (no date) (unknown) (unknown) 500 /ul (unknown) (unknown) (no date) (unknown) (unknown) 6.6 x10 3/ul (unknown) (unknown) (no date) (unknown) (unknown) 67.6 % (unknown) (unknown) (no date) (unknown) (unknown) 7.6 % (unknown) (unknown) (no date) (unknown) (unknown) 98.5 fl (unknown) Result panel 119 (unknown) (no date) (unknown) (unknown) > 60 ml/min (unknown) (unknown) (no date) (unknown) (unknown) > 60 ml/min (unknown) (unknown) (no date) (unknown) (unknown) < 0.012 ng/ml (unknown) (unknown) (no date) (unknown) (unknown) < 0.012 ng/ml (unknown) (unknown) (no date) (unknown) (unknown) 0.3 mg/dl (unknown) (unknown) (no date) (unknown) (unknown) 0.97 mg/dl (unknown) (unknown) (no date) (unknown) (unknown) 1.2 (units unknown) (unknown) (unknown) (no date) (unknown) (unknown) 103 mg/dl (unknown) (unknown) (no date) (unknown) (unknown) 103 mg/dl (unknown) (unknown) (no date) (unknown) (unknown) 104 mmol/l (unknown) (unknown) (no date) (unknown) (unknown) 137 mmol/l (unknown) (unknown) (no date) (unknown) (unknown) 151 u/l (unknown) (unknown) (no date) (unknown) (unknown) 16 mg/dl (unknown) (unknown) (no date) (unknown) (unknown) 16.5 (units unknown) (unknown) (unknown) (no date) (unknown) (unknown) 28 mmol/l (unknown) (unknown) (no date) (unknown) (unknown) 3.3 g/dl (unknown) (unknown) (no date) (unknown) (unknown) 3.9 g/dl (unknown) (unknown) (no date) (unknown) (unknown) 3.9 mmol/l (unknown) (unknown) (no date) (unknown) (unknown) 36 iu/l (unknown) (unknown) (no date) (unknown) (unknown) 41 iu/l (unknown) (unknown) (no date) (unknown) (unknown) 7.2 g/dl (unknown) (unknown) (no date) (unknown) (unknown) 8.8 mg/dl (unknown) Result panel 120 (unknown) (no date) (unknown) (unknown) (no value) (units unknown) (unknown) (unknown) (no date) (unknown) (unknown) (Arthritis Pain (diclofenac)) (units unknown) (unknown) (unknown) (no date) (unknown) (unknown) 01:05 01:05 (units unknown) (unknown) (unknown) (no date) (unknown) (unknown) 02/07/23 23:39 (units unknown) (unknown) (unknown) (no date) (unknown) (unknown) 02/07/23 (units unknown) (unknown) (unknown) (no date) (unknown) (unknown) 02/08/23 00:51 (units unknown) (unknown) (unknown) (no date) (unknown) (unknown) 02/08/23 00:52 (units unknown) (unknown) (unknown) (no date) (unknown) (unknown) 02/08/23 01:05 (units unknown) (unknown) (unknown) (no date) (unknown) (unknown) 02/08/23 02/08/23 Range/Units (units unknown) (unknown) (unknown) (no date) (unknown) (unknown) 1 mg PO BEDTIME (units unknown) (unknown) (unknown) (no date) (unknown) (unknown) 1,000 mg PO TID (units unknown) (unknown) (unknown) (no date) (unknown) (unknown) 1,000 unit PO DAILY (units unknown) (unknown) (unknown) (no date) (unknown) (unknown) 100 mg PO BEDTIME (units unknown) (unknown) (unknown) (no date) (unknown) (unknown) 12.5 mg PO BID (units unknown) (unknown) (unknown) (no date) (unknown) (unknown) 17 g PO BID (units unknown) (unknown) (unknown) (no date) (unknown) (unknown) 20 mg PO BEDTIME (units unknown) (unknown) (unknown) (no date) (unknown) (unknown) 20 mg PO DAILY (units unknown) (unknown) (unknown) (no date) (unknown) (unknown) 23:26 (units unknown) (unknown) (unknown) (no date) (unknown) (unknown) 300 mg PO DAILY (units unknown) (unknown) (unknown) (no date) (unknown) (unknown) 325 mg PO DAILY (units unknown) (unknown) (unknown) (no date) (unknown) (unknown) [id number] (units unknown) (unknown) (unknown) (no date) (unknown) (unknown) 4 g TOPICAL QID (units unknown) (unknown) (unknown) (no date) (unknown) (unknown) 6 mg PO BEDTIME (units unknown) (unknown) (unknown) (no date) (unknown) (unknown) 600 mg PO BID (units unknown) (unknown) (unknown) (no date) (unknown) (unknown) 750 mg PO BID (units unknown) (unknown) (unknown) (no date) (unknown) (unknown) 77-year-old gentleman with a history of seizure disorder and he describes his (units unknown) (unknown) (unknown) (no date) (unknown) (unknown) 8.6 mg PO BID (units unknown) (unknown) (unknown) (no date) (unknown) (unknown) 81 mg PO DAILY (units unknown) (unknown) (unknown) (no date) (unknown) (unknown) ALT 41 (<50) IU/L (units unknown) (unknown) (unknown) (no date) (unknown) (unknown) AST 36 (17-59) IU/L (units unknown) (unknown) (unknown) (no date) (unknown) (unknown) Abdomen: Soft, nontender, good bowel tones, no flank pain (units unknown) (unknown) (unknown) (no date) (unknown) (unknown) Age/Sex: 77 / M (units unknown) (unknown) (unknown) (no date) (unknown) (unknown) Albumin 3.9 (3.5-5.0) g/dL (units unknown) (unknown) (unknown) (no date) (unknown) (unknown) Albumin/Globulin Ratio 1.2 (1.0-2.8) (units unknown) (unknown) (unknown) (no date) (unknown) (unknown) Alkaline Phosphatase 151 H (38-126) U/L (units unknown) (unknown) (unknown) (no date) (unknown) (unknown) Allergies (units unknown) (unknown) (unknown) (no date) (unknown) (unknown) Allergy/AdvReac Type Severity Reaction Status Date / Time (units unknown) (unknown) (unknown) (no date) (unknown) (unknown) Alzheimer's dementia (units unknown) (unknown) (unknown) (no date) (unknown) (unknown) Anxiety (units unknown) (unknown) (unknown) (no date) (unknown) (unknown) Apparently this evening he rolled out of bed landed on his left hip and did hit (units unknown) (unknown) (unknown) (no date) (unknown) (unknown) At noon (units unknown) (unknown) (unknown) (no date) (unknown) (unknown) BUN 16 (9-20) mg/dL (units unknown) (unknown) (unknown) (no date) (unknown) (unknown) BUN/Creatinine Ratio 16.5 (6-22) (units unknown) (unknown) (unknown) (no date) (unknown) (unknown) Baso # (Auto) 0 (0-100) /uL (units unknown) (unknown) (unknown) (no date) (unknown) (unknown) Baso % (Auto) 0.3 (0-2) % (units unknown) (unknown) (unknown) (no date) (unknown) (unknown) Blood Pressure 131/73 02/07/23 23:26 (units unknown) (unknown) (unknown) (no date) (unknown) (unknown) Blood Pressure 131/73 (units unknown) (unknown) (unknown) (no date) (unknown) (unknown) CC: Rolled out of bed, lives at an adult family home, complaining of left hip (units unknown) (unknown) (unknown) (no date) (unknown) (unknown) CT cervical spine wo con Stat (units unknown) (unknown) (unknown) (no date) (unknown) (unknown) CT head/brain wo con Stat (units unknown) (unknown) (unknown) (no date) (unknown) (unknown) Calcium 8.8 (8.4-10.2) mg/dL (units unknown) (unknown) (unknown) (no date) (unknown) (unknown) Carbon Dioxide 28 (22-32) mmol/L (units unknown) (unknown) (unknown) (no date) (unknown) (unknown) Cardiac: Regular rate and rhythm no murmurs no bruits (units unknown) (unknown) (unknown) (no date) (unknown) (unknown) Chest pain (units unknown) (unknown) (unknown) (no date) (unknown) (unknown) Chief Complaint: Extremity Injury, Lower (units unknown) (unknown) (unknown) (no date) (unknown) (unknown) Chloride 104 (98-107) mmol/L (units unknown) (unknown) (unknown) (no date) (unknown) (unknown) Complete Blood Count AUTO DIFF Stat (units unknown) (unknown) (unknown) (no date) (unknown) (unknown) Complicating co-morbidities: Seizures, BPH, depression, constipation -no (units unknown) (unknown) (unknown) (no date) (unknown) (unknown) Comprehensive Metabolic Panel Stat (units unknown) (unknown) (unknown) (no date) (unknown) (unknown) Consultations: (units unknown) (unknown) (unknown) (no date) (unknown) (unknown) Course (units unknown) (unknown) (unknown) (no date) (unknown) (unknown) Creatinine 0.97 (0.66-1.25) mg/dL (units unknown) (unknown) (unknown) (no date) (unknown) (unknown) Currently lives in adult family skilled nursing (units unknown) (unknown) (unknown) (no date) (unknown) (unknown) : 1945 Acct:[id number] (units unknown) (unknown) (unknown) (no date) (unknown) (unknown) Data collected from: patient, (units unknown) (unknown) (unknown) (no date) (unknown) (unknown) Date of Service: 02/07/23 (units unknown) (unknown) (unknown) (no date) (unknown) (unknown) Departure (units unknown) (unknown) (unknown) (no date) (unknown) (unknown) Depression (units unknown) (unknown) (unknown) (no date) (unknown) (unknown) Differential considered: (units unknown) (unknown) (unknown) (no date) (unknown) (unknown) Discharge Plan (units unknown) (unknown) (unknown) (no date) (unknown) (unknown) Discussion: (units unknown) (unknown) (unknown) (no date) (unknown) (unknown) Documented By: YODIT (units unknown) (unknown) (unknown) (no date) (unknown) (unknown) ED Orders (units unknown) (unknown) (unknown) (no date) (unknown) (unknown) EKG-12 Lead Stat (units unknown) (unknown) (unknown) (no date) (unknown) (unknown) ER Physician: Lana Allison MD (units unknown) (unknown) (unknown) (no date) (unknown) (unknown) Easy bruisability (units unknown) (unknown) (unknown) (no date) (unknown) (unknown) Emergency Report (units unknown) (unknown) (unknown) (no date) (unknown) (unknown) Eos # (Auto) 100 (0-450) /uL (units unknown) (unknown) (unknown) (no date) (unknown) (unknown) Eos % (Auto) 1.1 L (2-4) % (units unknown) (unknown) (unknown) (no date) (unknown) (unknown) Epilepsy (units unknown) (unknown) (unknown) (no date) (unknown) (unknown) Estimated GFR > 60 (>60) mL/min (units unknown) (unknown) (unknown) (no date) (unknown) (unknown) Exam documented above, pertinent findings include: (units unknown) (unknown) (unknown) (no date) (unknown) (unknown) Exam (units unknown) (unknown) (unknown) (no date) (unknown) (unknown) Extremities: No tenderness with manipulation of pelvic ring. Pain along the (units unknown) (unknown) (unknown) (no date) (unknown) (unknown) Full and symmetrical air movement (units unknown) (unknown) (unknown) (no date) (unknown) (unknown) General (units unknown) (unknown) (unknown) (no date) (unknown) (unknown) General: Older-appearing gentleman in no acute distress. Cooperative with exam (units unknown) (unknown) (unknown) (no date) (unknown) (unknown) Globulin 3.3 (1.7-4.1) g/dL (units unknown) (unknown) (unknown) (no date) (unknown) (unknown) Glucose 103 (80-110) mg/dL (units unknown) (unknown) (unknown) (no date) (unknown) (unknown) HEENT: Moist mucous membranes, normal sclera with reactive pupils, atraumatic (units unknown) (unknown) (unknown) (no date) (unknown) (unknown) HPI - Extremity Injury (Lower) (units unknown) (unknown) (unknown) (no date) (unknown) (unknown) HPI Narrative: (units unknown) (unknown) (unknown) (no date) (unknown) (unknown) Hct 32.3 L (41-53) % (units unknown) (unknown) (unknown) (no date) (unknown) (unknown) Heart burn (units unknown) (unknown) (unknown) (no date) (unknown) (unknown) Hgb 11.1 L (13.5-17.5) g/dL (units unknown) (unknown) (unknown) (no date) (unknown) (unknown) History of Present Illness (units unknown) (unknown) (unknown) (no date) (unknown) (unknown) Home Medications (units unknown) (unknown) (unknown) (no date) (unknown) (unknown) Hydromorphone HCl (Hydromorphone 0.5 Mg Inj) 0.5 mg IV Q15MIN PRN (units unknown) (unknown) (unknown) (no date) (unknown) (unknown) Imaging studies independently reviewed: (units unknown) (unknown) (unknown) (no date) (unknown) (unknown) Independently reviewed EKG as above (units unknown) (unknown) (unknown) (no date) (unknown) (unknown) Initial Vital Signs (units unknown) (unknown) (unknown) (no date) (unknown) (unknown) Initial Vital Signs: (units unknown) (unknown) (unknown) (no date) (unknown) (unknown) [address] [address] (units unknown) (unknown) (unknown) (no date) (unknown) (unknown) Lab Data (units unknown) (unknown) (unknown) (no date) (unknown) (unknown) Lab Results (units unknown) (unknown) (unknown) (no date) (unknown) (unknown) Lab Test results independently reviewed as above. Pertinent findings: (units unknown) (unknown) (unknown) (no date) (unknown) (unknown) Labs: (units unknown) (unknown) (unknown) (no date) (unknown) (unknown) Last Admin: 02/08/23 01:18 Dose: 0.5 mg (units unknown) (unknown) (unknown) (no date) (unknown) (unknown) Lymph # (Auto) 1600 (7460-1220) /uL (units unknown) (unknown) (unknown) (no date) (unknown) (unknown) Lymph % (Auto) 23.4 L (25-40) % (units unknown) (unknown) (unknown) (no date) (unknown) (unknown) MCH 33.7 (26-34) PG (units unknown) (unknown) (unknown) (no date) (unknown) (unknown) MCHC 34.2 (30-36) % (units unknown) (unknown) (unknown) (no date) (unknown) (unknown) MCV 98.5 (80-100) fL (units unknown) (unknown) (unknown) (no date) (unknown) (unknown) MDM - Extremity Injury (Lower) (units unknown) (unknown) (unknown) (no date) (unknown) (unknown) MDM Narrative (units unknown) (unknown) (unknown) (no date) (unknown) (unknown) Medical History (units unknown) (unknown) (unknown) (no date) (unknown) (unknown) Medical decision making narrative: (units unknown) (unknown) (unknown) (no date) (unknown) (unknown) Medical records reviewed: (units unknown) (unknown) (unknown) (no date) (unknown) (unknown) Medication Instructions Recorded Confirmed (units unknown) (unknown) (unknown) (no date) (unknown) (unknown) Mode of arrival: EMS (units unknown) (unknown) (unknown) (no date) (unknown) (unknown) [place] # (Auto) 500 (0-900) /uL (units unknown) (unknown) (unknown) (no date) (unknown) (unknown) [place] % (Auto) 7.6 (3-14) % (units unknown) (unknown) (unknown) (no date) (unknown) (unknown) Narrative: (units unknown) (unknown) (unknown) (no date) (unknown) (unknown) Neck pain (units unknown) (unknown) (unknown) (no date) (unknown) (unknown) Neck: No midline cervical spine tenderness, supple (units unknown) (unknown) (unknown) (no date) (unknown) (unknown) Neurologic: Grossly neurologically intact with no obvious asymmetries or (units unknown) (unknown) (unknown) (no date) (unknown) (unknown) Neut # (Auto) 4500 (7396-0906) /uL (units unknown) (unknown) (unknown) (no date) (unknown) (unknown) Neut % (Auto) 67.6 (50-75) % (units unknown) (unknown) (unknown) (no date) (unknown) (unknown) No Action (units unknown) (unknown) (unknown) (no date) (unknown) (unknown) No Known Drug Allergies Allergy Verified 11/12/20 08:34 (units unknown) (unknown) (unknown) (no date) (unknown) (unknown) No history of previous surgery (units unknown) (unknown) (unknown) (no date) (unknown) (unknown) Numbness and tingling (units unknown) (unknown) (unknown) (no date) (unknown) (unknown) Ondansetron HCl (Ondansetron 4 Mg/2 Ml Inj) 4 mg IV PRN PRN (units unknown) (unknown) (unknown) (no date) (unknown) (unknown) Ordered: (units unknown) (unknown) (unknown) (no date) (unknown) (unknown) Orders (units unknown) (unknown) (unknown) (no date) (unknown) (unknown) Osteoarthritis (units unknown) (unknown) (unknown) (no date) (unknown) (unknown) Oxygen Delivery Method Room Air 02/07/23 23:26 (units unknown) (unknown) (unknown) (no date) (unknown) (unknown) Oxygen Delivery Method Room Air (units unknown) (unknown) (unknown) (no date) (unknown) (unknown) PRN Reason: Pain, Mild (1-3) (units unknown) (unknown) (unknown) (no date) (unknown) (unknown) PRN Reason: Pain, (units unknown) (unknown) (unknown) (no date) (unknown) (unknown) Pain (units unknown) (unknown) (unknown) (no date) (unknown) (unknown) Patient Disposition: Home (units unknown) (unknown) (unknown) (no date) (unknown) (unknown) Patient History (units unknown) (unknown) (unknown) (no date) (unknown) (unknown) Patient: Donna Garcia MR#: [id number] (units unknown) (unknown) (unknown) (no date) (unknown) (unknown) Pertinent positive and negative findings as per HPI (units unknown) (unknown) (unknown) (no date) (unknown) (unknown) Plt Count 196 (150-400) X103/uL (units unknown) (unknown) (unknown) (no date) (unknown) (unknown) Potassium 3.9 (3.4-5.1) mmol/L (units unknown) (unknown) (unknown) (no date) (unknown) (unknown) Prescriptions: (units unknown) (unknown) (unknown) (no date) (unknown) (unknown) Psych: Cooperative, somewhat tangential (units unknown) (unknown) (unknown) (no date) (unknown) (unknown) Pulse Oximetry 96 02/07/23 23:26 (units unknown) (unknown) (unknown) (no date) (unknown) (unknown) Pulse Oximetry 96 (units unknown) (unknown) (unknown) (no date) (unknown) (unknown) Pulse Rate 70 02/07/23 23:26 (units unknown) (unknown) (unknown) (no date) (unknown) (unknown) Pulse Rate 70 (units unknown) (unknown) (unknown) (no date) (unknown) (unknown) RBBB (right bundle branch block) (units unknown) (unknown) (unknown) (no date) (unknown) (unknown) RBC 3.28 L (4.5-5.9) X106/uL (units unknown) (unknown) (unknown) (no date) (unknown) (unknown) RDW 16.6 H (11.6-14.8) % (units unknown) (unknown) (unknown) (no date) (unknown) (unknown) Re-evaluations: (units unknown) (unknown) (unknown) (no date) (unknown) (unknown) Related Data (units unknown) (unknown) (unknown) (no date) (unknown) (unknown) Respiratory Rate 16 02/07/23 23:26 (units unknown) (unknown) (unknown) (no date) (unknown) (unknown) Respiratory Rate 16 (units unknown) (unknown) (unknown) (no date) (unknown) (unknown) Respiratory: Lungs are clear to auscultation, no wheezing no rales no rhonchi. (units unknown) (unknown) (unknown) (no date) (unknown) (unknown) Review of Systems (units unknown) (unknown) (unknown) (no date) (unknown) (unknown) Rx Instructions: (units unknown) (unknown) (unknown) (no date) (unknown) (unknown) Seizures (units unknown) (unknown) (unknown) (no date) (unknown) (unknown) Signed By: (units unknown) (unknown) (unknown) (no date) (unknown) (unknown) Skin: Warm and dry, no rashes (units unknown) (unknown) (unknown) (no date) (unknown) (unknown) Smoking Status: Current every day smoker (units unknown) (unknown) (unknown) (no date) (unknown) (unknown) Social History (units unknown) (unknown) (unknown) (no date) (unknown) (unknown) Social determinants of health that may influence the patients condition: (units unknown) (unknown) (unknown) (no date) (unknown) (unknown) Sodium 137 (137-145) mmol/L (units unknown) (unknown) (unknown) (no date) (unknown) (unknown) Sodium Chloride (Normal Saline 0.9%) 1,000 mls @ 150 mls/hr IV CONT STEFANY (units unknown) (unknown) (unknown) (no date) (unknown) (unknown) Source: patient and EMS (units unknown) (unknown) (unknown) (no date) (unknown) (unknown) Stand Alone Forms: Patient Portal/API (units unknown) (unknown) (unknown) (no date) (unknown) (unknown) Stated Complaint: ROLL OUT OF BED WITH LEFT HIP PAIN (units unknown) (unknown) (unknown) (no date) (unknown) (unknown) Substance Use Type: marijuana (units unknown) (unknown) (unknown) (no date) (unknown) (unknown) Surgical History (units unknown) (unknown) (unknown) (no date) (unknown) (unknown) TIA (transient ischemic attack) (units unknown) (unknown) (unknown) (no date) (unknown) (unknown) Temperature 98.6 F 02/07/23 23:26 (units unknown) (unknown) (unknown) (no date) (unknown) (unknown) Temperature 98.6 F (units unknown) (unknown) (unknown) (no date) (unknown) (unknown) Time Seen by Provider: 02/07/23 23:54 (units unknown) (unknown) (unknown) (no date) (unknown) (unknown) Total Bilirubin 0.3 (0.2-1.3) mg/dL (units unknown) (unknown) (unknown) (no date) (unknown) (unknown) Total Protein 7.2 (6.3-8.2) g/dL (units unknown) (unknown) (unknown) (no date) (unknown) (unknown) Treatments: (units unknown) (unknown) (unknown) (no date) (unknown) (unknown) Troponin I < 0.012 (0.01-0.034) ng/mL (units unknown) (unknown) (unknown) (no date) (unknown) (unknown) Troponin I Stat (units unknown) (unknown) (unknown) (no date) (unknown) (unknown) Vital Signs - 8 hr (units unknown) (unknown) (unknown) (no date) (unknown) (unknown) Vital Signs (units unknown) (unknown) (unknown) (no date) (unknown) (unknown) Vital signs: (units unknown) (unknown) (unknown) (no date) (unknown) (unknown) WBC 6.6 (4.5-11.0) X103/uL (units unknown) (unknown) (unknown) (no date) (unknown) (unknown) XR hip w pel if done LT 2V Stat (units unknown) (unknown) (unknown) (no date) (unknown) (unknown) Xr hip Acute fracture femoral neck on the left, (units unknown) (unknown) (unknown) (no date) (unknown) (unknown) [Embedded Image Not Available] (units unknown) (unknown) (unknown) (no date) (unknown) (unknown) abnormalities (units unknown) (unknown) (unknown) (no date) (unknown) (unknown) acetaminophen 500 mg Tablet (units unknown) (unknown) (unknown) (no date) (unknown) (unknown) acetaminophen 500 mg tablet 1,000 mg PO TID 02/08/23 02/08/23 (units unknown) (unknown) (unknown) (no date) (unknown) (unknown) alcohol intake frequency: 3 or more drinks per day (units unknown) (unknown) (unknown) (no date) (unknown) (unknown) alcohol intake: current (units unknown) (unknown) (unknown) (no date) (unknown) (unknown) anticoagulation (units unknown) (unknown) (unknown) (no date) (unknown) (unknown) apply to single knee, ankle, foot; for foot includes sole/toes/top of foot (units unknown) (unknown) (unknown) (no date) (unknown) (unknown) aspirin 81 mg Tablet,Delayed Release (Dr/Ec) (units unknown) (unknown) (unknown) (no date) (unknown) (unknown) aspirin 81 mg tablet,delayed 81 mg PO DAILY 02/08/23 02/08/23 (units unknown) (unknown) (unknown) (no date) (unknown) (unknown) atorvastatin 20 mg Tablet (units unknown) (unknown) (unknown) (no date) (unknown) (unknown) atorvastatin 20 mg tablet 20 mg PO BEDTIME 02/08/23 02/08/23 (units unknown) (unknown) (unknown) (no date) (unknown) (unknown) cholecalciferol (vitamin D3) 25 1,000 unit PO DAILY 02/08/23 02/08/23 (units unknown) (unknown) (unknown) (no date) (unknown) (unknown) cholecalciferol (vitamin D3) 25 mcg (1,000 unit) tablet (units unknown) (unknown) (unknown) (no date) (unknown) (unknown) complaints on the left side. Right side is unremarkable. (units unknown) (unknown) (unknown) (no date) (unknown) (unknown) diclofenac sodium 1 % topical gel 4 g topical QID 02/08/23 02/08/23 (units unknown) (unknown) (unknown) (no date) (unknown) (unknown) diclofenac sodium [Arthritis Pain (diclofenac)] 1 % Gel (units unknown) (unknown) (unknown) (no date) (unknown) (unknown) ferrous sulfate 325 mg (65 mg 325 mg PO DAILY 02/08/23 02/08/23 (units unknown) (unknown) (unknown) (no date) (unknown) (unknown) ferrous sulfate 325 mg (65 mg iron) Tablet,Delayed Release (Dr/Ec) (units unknown) (unknown) (unknown) (no date) (unknown) (unknown) gabapentin 300 mg Capsule (units unknown) (unknown) (unknown) (no date) (unknown) (unknown) gabapentin 300 mg capsule 300 mg PO DAILY 02/08/23 02/08/23 (units unknown) (unknown) (unknown) (no date) (unknown) (unknown) gabapentin 300 mg capsule 600 mg PO BID 02/08/23 02/08/23 (units unknown) (unknown) (unknown) (no date) (unknown) (unknown) his head. It is unclear if there was a loss consciousness or not. He was (units unknown) (unknown) (unknown) (no date) (unknown) (unknown) household members: family (units unknown) (unknown) (unknown) (no date) (unknown) (unknown) in a group family home on [facility]. He does have a history of a stroke. (units unknown) (unknown) (unknown) (no date) (unknown) (unknown) iron) tablet,delayed release (units unknown) (unknown) (unknown) (no date) (unknown) (unknown) last seizure approximately 3 years ago. He is mild dementia and currently lives (units unknown) (unknown) (unknown) (no date) (unknown) (unknown) lateral aspect of the left hip. Neurovascularly intact. No knee or ankle (units unknown) (unknown) (unknown) (no date) (unknown) (unknown) levetiracetam 750 mg Tablet (units unknown) (unknown) (unknown) (no date) (unknown) (unknown) levetiracetam 750 mg tablet 750 mg PO BID 10/20/19 02/08/23 (units unknown) (unknown) (unknown) (no date) (unknown) (unknown) mcg (1,000 unit) tablet (units unknown) (unknown) (unknown) (no date) (unknown) (unknown) melatonin 3 mg Tablet (units unknown) (unknown) (unknown) (no date) (unknown) (unknown) melatonin 3 mg tablet 6 mg PO BEDTIME 02/08/23 02/08/23 (units unknown) (unknown) (unknown) (no date) (unknown) (unknown) metoprolol tartrate 25 mg Tablet (units unknown) (unknown) (unknown) (no date) (unknown) (unknown) metoprolol tartrate 25 mg tablet 12.5 mg PO BID 10/20/19 02/08/23 (units unknown) (unknown) (unknown) (no date) (unknown) (unknown) moving he has no pain complaints. Leg is held in slight external rotation with (units unknown) (unknown) (unknown) (no date) (unknown) (unknown) normocephalic (units unknown) (unknown) (unknown) (no date) (unknown) (unknown) omeprazole 20 mg Capsule,Delayed Release(Dr/Ec) (units unknown) (unknown) (unknown) (no date) (unknown) (unknown) omeprazole 20 mg capsule,delayed 20 mg PO DAILY 02/08/23 02/08/23 (units unknown) (unknown) (unknown) (no date) (unknown) (unknown) oral powder packet (Miralax) (units unknown) (unknown) (unknown) (no date) (unknown) (unknown) pain. Acute problem uncertain prognosis (units unknown) (unknown) (unknown) (no date) (unknown) (unknown) polyethylene glycol 3350 17 gram 17 g PO BID 02/08/23 02/08/23 (units unknown) (unknown) (unknown) (no date) (unknown) (unknown) polyethylene glycol 3350 [Miralax] 17 gram Powder In Packet (units unknown) (unknown) (unknown) (no date) (unknown) (unknown) prazosin 1 mg Capsule (units unknown) (unknown) (unknown) (no date) (unknown) (unknown) prazosin 1 mg capsule 1 mg PO BEDTIME 02/08/23 02/08/23 (units unknown) (unknown) (unknown) (no date) (unknown) (unknown) release (units unknown) (unknown) (unknown) (no date) (unknown) (unknown) sennosides 8.6 mg tablet (senna) 8.6 mg PO BID 02/08/23 02/08/23 (units unknown) (unknown) (unknown) (no date) (unknown) (unknown) sennosides [senna] 8.6 mg Tablet (units unknown) (unknown) (unknown) (no date) (unknown) (unknown) sertraline 100 mg Tablet (units unknown) (unknown) (unknown) (no date) (unknown) (unknown) sertraline 100 mg tablet 100 mg PO BEDTIME 02/08/23 02/08/23 (units unknown) (unknown) (unknown) (no date) (unknown) (unknown) the knee at 46? for comfort. He is neurovascularly intact. (units unknown) (unknown) (unknown) (no date) (unknown) (unknown) tobacco type: cigarettes (units unknown) (unknown) (unknown) (no date) (unknown) (unknown) unable to stand up. Describes no other fevers, cough, chills. When he is not (units unknown) (unknown) Result panel 121 (unknown) (no date) (unknown) (unknown) (no value) (units unknown) (unknown) (unknown) (no date) (unknown) (unknown) [id number] (units unknown) (unknown) (unknown) (no date) (unknown) (unknown) 02/08/23 (units unknown) (unknown) (unknown) (no date) (unknown) (unknown) [facility] [address] [place] [address] (units unknown) (unknown) (unknown) (no date) (unknown) (unknown) Accession Number: [id number] (units unknown) (unknown) (unknown) (no date) (unknown) (unknown) Age/Sex: 77 / M Date of Service: (units unknown) (unknown) (unknown) (no date) (unknown) (unknown) [place] [address] (units unknown) (unknown) (unknown) (no date) (unknown) (unknown) Approved by: Leonidas Armijo M.D. on 02/08/2023 at 10:06 (units unknown) (unknown) (unknown) (no date) (unknown) (unknown) Bones and chest wall: No suspicious bony lesions. Overlying soft tissues (units unknown) (unknown) (unknown) (no date) (unknown) (unknown) COMPARISON: None. (units unknown) (unknown) (unknown) (no date) (unknown) (unknown) : 1945 Acct:[id number] (units unknown) (unknown) (unknown) (no date) (unknown) (unknown) FINDINGS: (units unknown) (unknown) (unknown) (no date) (unknown) (unknown) IMPRESSION: No acute cardiopulmonary findings (units unknown) (unknown) (unknown) (no date) (unknown) (unknown) INDICATIONS: pre-op (units unknown) (unknown) (unknown) (no date) (unknown) (unknown) [facility] (units unknown) (unknown) (unknown) (no date) (unknown) (unknown) Loc: AC 212-1 (units unknown) (unknown) (unknown) (no date) (unknown) (unknown) Lungs and pleura: Lungs are clear. No pleural effusions or pneumothorax. (units unknown) (unknown) (unknown) (no date) (unknown) (unknown) Mediastinum: Mediastinal contours appear normal. Heart size is normal. (units unknown) (unknown) (unknown) (no date) (unknown) (unknown) Ordering Provider: Lana Allison MD (units unknown) (unknown) (unknown) (no date) (unknown) (unknown) PROCEDURE: XR CHEST 1V (units unknown) (unknown) (unknown) (no date) (unknown) (unknown) Patient: Donna Garcia MR#: [id number] (units unknown) (unknown) (unknown) (no date) (unknown) (unknown) Procedure: XR chest 1V (units unknown) (unknown) (unknown) (no date) (unknown) (unknown) Signed (units unknown) (unknown) (unknown) (no date) (unknown) (unknown) Surgical changes and devices: None. (units unknown) (unknown) (unknown) (no date) (unknown) (unknown) TECHNIQUE: One view of the chest was acquired. (units unknown) (unknown) (unknown) (no date) (unknown) (unknown) XRay Report (units unknown) (unknown) (unknown) (no date) (unknown) (unknown) appear (units unknown) (unknown) (unknown) (no date) (unknown) (unknown) unremarkable. (units unknown) (unknown) Result panel 122 (unknown) (no date) (unknown) (unknown) (no value) (units unknown) (unknown) (unknown) (no date) (unknown) (unknown) (Arthritis Pain (diclofenac)) (units unknown) (unknown) (unknown) (no date) (unknown) (unknown) 01:05 01:05 (units unknown) (unknown) (unknown) (no date) (unknown) (unknown) 02/07/23 23:39 (units unknown) (unknown) (unknown) (no date) (unknown) (unknown) 02/07/23 (units unknown) (unknown) (unknown) (no date) (unknown) (unknown) 02/08/23 00:51 (units unknown) (unknown) (unknown) (no date) (unknown) (unknown) 02/08/23 00:52 (units unknown) (unknown) (unknown) (no date) (unknown) (unknown) 02/08/23 01:05 (units unknown) (unknown) (unknown) (no date) (unknown) (unknown) 02/08/23 02/08/23 Range/Units (units unknown) (unknown) (unknown) (no date) (unknown) (unknown) 23:26 (units unknown) (unknown) (unknown) (no date) (unknown) (unknown) 2:40am Ms Munson, hospitalist, will admit (units unknown) (unknown) (unknown) (no date) (unknown) (unknown) [id number] (units unknown) (unknown) (unknown) (no date) (unknown) (unknown) 77-year-old gentleman with a history of seizure disorder and he describes his (units unknown) (unknown) (unknown) (no date) (unknown) (unknown) ALT 41 (<50) IU/L (units unknown) (unknown) (unknown) (no date) (unknown) (unknown) AST 36 (17-59) IU/L (units unknown) (unknown) (unknown) (no date) (unknown) (unknown) Abdomen: Soft, nontender, good bowel tones, no flank pain (units unknown) (unknown) (unknown) (no date) (unknown) (unknown) Age/Sex: 77 / M (units unknown) (unknown) (unknown) (no date) (unknown) (unknown) Albumin 3.9 (3.5-5.0) g/dL (units unknown) (unknown) (unknown) (no date) (unknown) (unknown) Albumin/Globulin Ratio 1.2 (1.0-2.8) (units unknown) (unknown) (unknown) (no date) (unknown) (unknown) Alkaline Phosphatase 151 H (38-126) U/L (units unknown) (unknown) (unknown) (no date) (unknown) (unknown) Allergies (units unknown) (unknown) (unknown) (no date) (unknown) (unknown) Allergy/AdvReac Type Severity Reaction Status Date / Time (units unknown) (unknown) (unknown) (no date) (unknown) (unknown) Alzheimer's dementia (units unknown) (unknown) (unknown) (no date) (unknown) (unknown) Anxiety (units unknown) (unknown) (unknown) (no date) (unknown) (unknown) Apparently this evening he rolled out of bed landed on his left hip and did hit (units unknown) (unknown) (unknown) (no date) (unknown) (unknown) BUN 16 (9-20) mg/dL (units unknown) (unknown) (unknown) (no date) (unknown) (unknown) BUN/Creatinine Ratio 16.5 (6-22) (units unknown) (unknown) (unknown) (no date) (unknown) (unknown) Baso # (Auto) 0 (0-100) /uL (units unknown) (unknown) (unknown) (no date) (unknown) (unknown) Baso % (Auto) 0.3 (0-2) % (units unknown) (unknown) (unknown) (no date) (unknown) (unknown) Blood Pressure 131/73 02/07/23 23:26 (units unknown) (unknown) (unknown) (no date) (unknown) (unknown) Blood Pressure 131/73 (units unknown) (unknown) (unknown) (no date) (unknown) (unknown) CBC is notable for absence of leukocytosis. Slight anemia at 11.1 and 32.3 with (units unknown) (unknown) (unknown) (no date) (unknown) (unknown) CC: Rolled out of bed, lives at an adult family home, complaining of left hip (units unknown) (unknown) (unknown) (no date) (unknown) (unknown) CT cervical spine wo con Stat (units unknown) (unknown) (unknown) (no date) (unknown) (unknown) CT head no acute abnormalities or intracranial bleed (units unknown) (unknown) (unknown) (no date) (unknown) (unknown) CT head/brain wo con Stat (units unknown) (unknown) (unknown) (no date) (unknown) (unknown) Calcium 8.8 (8.4-10.2) mg/dL (units unknown) (unknown) (unknown) (no date) (unknown) (unknown) Carbon Dioxide 28 (22-32) mmol/L (units unknown) (unknown) (unknown) (no date) (unknown) (unknown) Cardiac: Regular rate and rhythm no murmurs no bruits (units unknown) (unknown) (unknown) (no date) (unknown) (unknown) Cervical spine is unremarkable (units unknown) (unknown) (unknown) (no date) (unknown) (unknown) Chemistries are reassuring with creatinine at 0.97 (units unknown) (unknown) (unknown) (no date) (unknown) (unknown) Chest pain (units unknown) (unknown) (unknown) (no date) (unknown) (unknown) Chest x-ray (units unknown) (unknown) (unknown) (no date) (unknown) (unknown) Chief Complaint: Extremity Injury, Lower (units unknown) (unknown) (unknown) (no date) (unknown) (unknown) Chloride 104 (98-107) mmol/L (units unknown) (unknown) (unknown) (no date) (unknown) (unknown) Clinical Impression: (units unknown) (unknown) (unknown) (no date) (unknown) (unknown) Closed hip fracture, Accidental fall from bed, Seizure disorder, Dementia (units unknown) (unknown) (unknown) (no date) (unknown) (unknown) Complete Blood Count AUTO DIFF Stat (units unknown) (unknown) (unknown) (no date) (unknown) (unknown) Complicating co-morbidities: Seizures, BPH, depression, constipation -no (units unknown) (unknown) (unknown) (no date) (unknown) (unknown) Comprehensive Metabolic Panel Stat (units unknown) (unknown) (unknown) (no date) (unknown) (unknown) Consultations: 2:25am Dr Moore, orthopedic surgery. She will consult (units unknown) (unknown) (unknown) (no date) (unknown) (unknown) Course (units unknown) (unknown) (unknown) (no date) (unknown) (unknown) Creatinine 0.97 (0.66-1.25) mg/dL (units unknown) (unknown) (unknown) (no date) (unknown) (unknown) Currently lives in adult family skilled nursing (units unknown) (unknown) (unknown) (no date) (unknown) (unknown) : 1945 Acct:[id number] (units unknown) (unknown) (unknown) (no date) (unknown) (unknown) Data collected from: patient, (units unknown) (unknown) (unknown) (no date) (unknown) (unknown) Date of Service: 02/08/23 (units unknown) (unknown) (unknown) (no date) (unknown) (unknown) Departure (units unknown) (unknown) (unknown) (no date) (unknown) (unknown) Depression (units unknown) (unknown) (unknown) (no date) (unknown) (unknown) Differential considered: Hip fracture, femur fracture, pelvic fracture, soft (units unknown) (unknown) (unknown) (no date) (unknown) (unknown) Discharge Plan (units unknown) (unknown) (unknown) (no date) (unknown) (unknown) Discussion: Pleasant 77-year-old gentleman who rolled out of bed falling onto (units unknown) (unknown) (unknown) (no date) (unknown) (unknown) Documented By: [facility] (units unknown) (unknown) (unknown) (no date) (unknown) (unknown) Due to fall from bed unclear whether he hit his head and slight dementia, (units unknown) (unknown) (unknown) (no date) (unknown) (unknown) ED Orders (units unknown) (unknown) (unknown) (no date) (unknown) (unknown) EKG-12 Lead Stat (units unknown) (unknown) (unknown) (no date) (unknown) (unknown) ER Physician: Lana Allison MD (units unknown) (unknown) (unknown) (no date) (unknown) (unknown) Easy bruisability (units unknown) (unknown) (unknown) (no date) (unknown) (unknown) Emergency Report (units unknown) (unknown) (unknown) (no date) (unknown) (unknown) Eos # (Auto) 100 (0-450) /uL (units unknown) (unknown) (unknown) (no date) (unknown) (unknown) Eos % (Auto) 1.1 L (2-4) % (units unknown) (unknown) (unknown) (no date) (unknown) (unknown) Epilepsy (units unknown) (unknown) (unknown) (no date) (unknown) (unknown) Estimated GFR > 60 (>60) mL/min (units unknown) (unknown) (unknown) (no date) (unknown) (unknown) Exam documented above, pertinent findings include: Pleasantly confused (units unknown) (unknown) (unknown) (no date) (unknown) (unknown) Exam (units unknown) (unknown) (unknown) (no date) (unknown) (unknown) Extremities: No tenderness with manipulation of pelvic ring. Pain along the (units unknown) (unknown) (unknown) (no date) (unknown) (unknown) Full and symmetrical air movement (units unknown) (unknown) (unknown) (no date) (unknown) (unknown) General (units unknown) (unknown) (unknown) (no date) (unknown) (unknown) General: Older-appearing gentleman in no acute distress. Cooperative with exam (units unknown) (unknown) (unknown) (no date) (unknown) (unknown) Globulin 3.3 (1.7-4.1) g/dL (units unknown) (unknown) (unknown) (no date) (unknown) (unknown) Glucose 103 (80-110) mg/dL (units unknown) (unknown) (unknown) (no date) (unknown) (unknown) HEENT: Moist mucous membranes, normal sclera with reactive pupils, atraumatic (units unknown) (unknown) (unknown) (no date) (unknown) (unknown) HPI - Extremity Injury (Lower) (units unknown) (unknown) (unknown) (no date) (unknown) (unknown) HPI Narrative: (units unknown) (unknown) (unknown) (no date) (unknown) (unknown) Hct 32.3 L (41-53) % (units unknown) (unknown) (unknown) (no date) (unknown) (unknown) Heart burn (units unknown) (unknown) (unknown) (no date) (unknown) (unknown) Hgb 11.1 L (13.5-17.5) g/dL (units unknown) (unknown) (unknown) (no date) (unknown) (unknown) History of Present Illness (units unknown) (unknown) (unknown) (no date) (unknown) (unknown) Home Medications (units unknown) (unknown) (unknown) (no date) (unknown) (unknown) Hydromorphone HCl (Hydromorphone 0.5 Mg Inj) 0.5 mg IV Q15MIN PRN (units unknown) (unknown) (unknown) (no date) (unknown) (unknown) Imaging studies independently reviewed: (units unknown) (unknown) (unknown) (no date) (unknown) (unknown) Incomplete right bundle branch block. Poor baseline overall that no acute (units unknown) (unknown) (unknown) (no date) (unknown) (unknown) Independently reviewed EKG (units unknown) (unknown) (unknown) (no date) (unknown) (unknown) Initial Vital Signs (units unknown) (unknown) (unknown) (no date) (unknown) (unknown) Initial Vital Signs: (units unknown) (unknown) (unknown) (no date) (unknown) (unknown) [address] [address] (units unknown) (unknown) (unknown) (no date) (unknown) (unknown) Lab Data (units unknown) (unknown) (unknown) (no date) (unknown) (unknown) Lab Results (units unknown) (unknown) (unknown) (no date) (unknown) (unknown) Lab Test results independently reviewed as above. Pertinent findings: (units unknown) (unknown) (unknown) (no date) (unknown) (unknown) Labs: (units unknown) (unknown) (unknown) (no date) (unknown) (unknown) Last Admin: 02/08/23 01:18 Dose: 0.5 mg (units unknown) (unknown) (unknown) (no date) (unknown) (unknown) Lymph # (Auto) 1600 (0661-3859) /uL (units unknown) (unknown) (unknown) (no date) (unknown) (unknown) Lymph % (Auto) 23.4 L (25-40) % (units unknown) (unknown) (unknown) (no date) (unknown) (unknown) MCH 33.7 (26-34) PG (units unknown) (unknown) (unknown) (no date) (unknown) (unknown) MCHC 34.2 (30-36) % (units unknown) (unknown) (unknown) (no date) (unknown) (unknown) MCV 98.5 (80-100) fL (units unknown) (unknown) (unknown) (no date) (unknown) (unknown) MDM - Extremity Injury (Lower) (units unknown) (unknown) (unknown) (no date) (unknown) (unknown) MDM Narrative (units unknown) (unknown) (unknown) (no date) (unknown) (unknown) Medical History (units unknown) (unknown) (unknown) (no date) (unknown) (unknown) Medical decision making narrative: (units unknown) (unknown) (unknown) (no date) (unknown) (unknown) Medical records reviewed: Notes from his group family home were reviewed and (units unknown) (unknown) (unknown) (no date) (unknown) (unknown) Medication Instructions Recorded Confirmed (units unknown) (unknown) (unknown) (no date) (unknown) (unknown) Mode of arrival: EMS (units unknown) (unknown) (unknown) (no date) (unknown) (unknown) Aurora # (Auto) 500 (0-900) /uL (units unknown) (unknown) (unknown) (no date) (unknown) (unknown) [place] % (Auto) 7.6 (3-14) % (units unknown) (unknown) (unknown) (no date) (unknown) (unknown) Narrative: (units unknown) (unknown) (unknown) (no date) (unknown) (unknown) Neck pain (units unknown) (unknown) (unknown) (no date) (unknown) (unknown) Neck: No midline cervical spine tenderness, supple (units unknown) (unknown) (unknown) (no date) (unknown) (unknown) Neurologic: Grossly neurologically intact with no obvious asymmetries or (units unknown) (unknown) (unknown) (no date) (unknown) (unknown) Neut # (Auto) 4500 (5813-1989) /uL (units unknown) (unknown) (unknown) (no date) (unknown) (unknown) Neut % (Auto) 67.6 (50-75) % (units unknown) (unknown) (unknown) (no date) (unknown) (unknown) No Known Drug Allergies Allergy Verified 11/12/20 08:34 (units unknown) (unknown) (unknown) (no date) (unknown) (unknown) No history of previous surgery (units unknown) (unknown) (unknown) (no date) (unknown) (unknown) Numbness and tingling (units unknown) (unknown) (unknown) (no date) (unknown) (unknown) Ondansetron HCl (Ondansetron 4 Mg/2 Ml Inj) 4 mg IV PRN PRN (units unknown) (unknown) (unknown) (no date) (unknown) (unknown) Ordered: (units unknown) (unknown) (unknown) (no date) (unknown) (unknown) Orders (units unknown) (unknown) (unknown) (no date) (unknown) (unknown) Osteoarthritis (units unknown) (unknown) (unknown) (no date) (unknown) (unknown) Oxygen Delivery Method Room Air 02/07/23 23:26 (units unknown) (unknown) (unknown) (no date) (unknown) (unknown) Oxygen Delivery Method Room Air (units unknown) (unknown) (unknown) (no date) (unknown) (unknown) PRN Reason: Pain, Mild (1-3) (units unknown) (unknown) (unknown) (no date) (unknown) (unknown) PRN Reason: Pain, (units unknown) (unknown) (unknown) (no date) (unknown) (unknown) Pain (units unknown) (unknown) (unknown) (no date) (unknown) (unknown) Patient Disposition: Home (units unknown) (unknown) (unknown) (no date) (unknown) (unknown) Patient History (units unknown) (unknown) (unknown) (no date) (unknown) (unknown) Patient: Donna Garcia MR#: [id number] (units unknown) (unknown) (unknown) (no date) (unknown) (unknown) Pertinent positive and negative findings as per HPI (units unknown) (unknown) (unknown) (no date) (unknown) (unknown) Plt Count 196 (150-400) X103/uL (units unknown) (unknown) (unknown) (no date) (unknown) (unknown) Potassium 3.9 (3.4-5.1) mmol/L (units unknown) (unknown) (unknown) (no date) (unknown) (unknown) Psych: Cooperative, somewhat tangential (units unknown) (unknown) (unknown) (no date) (unknown) (unknown) Pulse Oximetry 96 02/07/23 23:26 (units unknown) (unknown) (unknown) (no date) (unknown) (unknown) Pulse Oximetry 96 (units unknown) (unknown) (unknown) (no date) (unknown) (unknown) Pulse Rate 70 02/07/23 23:26 (units unknown) (unknown) (unknown) (no date) (unknown) (unknown) Pulse Rate 70 (units unknown) (unknown) (unknown) (no date) (unknown) (unknown) RBBB (right bundle branch block) (units unknown) (unknown) (unknown) (no date) (unknown) (unknown) RBC 3.28 L (4.5-5.9) X106/uL (units unknown) (unknown) (unknown) (no date) (unknown) (unknown) RDW 16.6 H (11.6-14.8) % (units unknown) (unknown) (unknown) (no date) (unknown) (unknown) Related Data (units unknown) (unknown) (unknown) (no date) (unknown) (unknown) Respiratory Rate 16 02/07/23 23:26 (units unknown) (unknown) (unknown) (no date) (unknown) (unknown) Respiratory Rate 16 (units unknown) (unknown) (unknown) (no date) (unknown) (unknown) Respiratory: Lungs are clear to auscultation, no wheezing no rales no rhonchi. (units unknown) (unknown) (unknown) (no date) (unknown) (unknown) Review of Systems (units unknown) (unknown) (unknown) (no date) (unknown) (unknown) Seizures (units unknown) (unknown) (unknown) (no date) (unknown) (unknown) Signed By: (units unknown) (unknown) (unknown) (no date) (unknown) (unknown) Sinus rhythm at a rate of 66 (units unknown) (unknown) (unknown) (no date) (unknown) (unknown) Skin: Warm and dry, no rashes (units unknown) (unknown) (unknown) (no date) (unknown) (unknown) Smoking Status: Current every day smoker (units unknown) (unknown) (unknown) (no date) (unknown) (unknown) Social History (units unknown) (unknown) (unknown) (no date) (unknown) (unknown) Social determinants of health that may influence the patients condition: (units unknown) (unknown) (unknown) (no date) (unknown) (unknown) Sodium 137 (137-145) mmol/L (units unknown) (unknown) (unknown) (no date) (unknown) (unknown) Sodium Chloride (Normal Saline 0.9%) 1,000 mls @ 150 mls/hr IV CONT STEFANY (units unknown) (unknown) (unknown) (no date) (unknown) (unknown) Source: patient and EMS (units unknown) (unknown) (unknown) (no date) (unknown) (unknown) Stated Complaint: ROLL OUT OF BED WITH LEFT HIP PAIN (units unknown) (unknown) (unknown) (no date) (unknown) (unknown) Substance Use Type: marijuana (units unknown) (unknown) (unknown) (no date) (unknown) (unknown) Surgical History (units unknown) (unknown) (unknown) (no date) (unknown) (unknown) TIA (transient ischemic attack) (units unknown) (unknown) (unknown) (no date) (unknown) (unknown) Temperature 98.6 F 02/07/23 23:26 (units unknown) (unknown) (unknown) (no date) (unknown) (unknown) Temperature 98.6 F (units unknown) (unknown) (unknown) (no date) (unknown) (unknown) Time Seen by Provider: 02/07/23 23:54 (units unknown) (unknown) (unknown) (no date) (unknown) (unknown) Total Bilirubin 0.3 (0.2-1.3) mg/dL (units unknown) (unknown) (unknown) (no date) (unknown) (unknown) Total Protein 7.2 (6.3-8.2) g/dL (units unknown) (unknown) (unknown) (no date) (unknown) (unknown) Treatments: Dilaudid, Zofran (units unknown) (unknown) (unknown) (no date) (unknown) (unknown) Troponin I < 0.012 (0.01-0.034) ng/mL (units unknown) (unknown) (unknown) (no date) (unknown) (unknown) Troponin I Stat (units unknown) (unknown) (unknown) (no date) (unknown) (unknown) Vital Signs - 8 hr (units unknown) (unknown) (unknown) (no date) (unknown) (unknown) Vital Signs (units unknown) (unknown) (unknown) (no date) (unknown) (unknown) Vital signs: (units unknown) (unknown) (unknown) (no date) (unknown) (unknown) WBC 6.6 (4.5-11.0) X103/uL (units unknown) (unknown) (unknown) (no date) (unknown) (unknown) XR hip w pel if done LT 2V Stat (units unknown) (unknown) (unknown) (no date) (unknown) (unknown) Xr hip Acute fracture femoral neck on the left, (units unknown) (unknown) (unknown) (no date) (unknown) (unknown) [Embedded Image Not Available] (units unknown) (unknown) (unknown) (no date) (unknown) (unknown) abnormalities (units unknown) (unknown) (unknown) (no date) (unknown) (unknown) acetaminophen 500 mg tablet 1,000 mg PO TID 02/08/23 02/08/23 (units unknown) (unknown) (unknown) (no date) (unknown) (unknown) additional imaging is performed. (units unknown) (unknown) (unknown) (no date) (unknown) (unknown) alcohol intake frequency: 3 or more drinks per day (units unknown) (unknown) (unknown) (no date) (unknown) (unknown) alcohol intake: current (units unknown) (unknown) (unknown) (no date) (unknown) (unknown) anticoagulation (units unknown) (unknown) (unknown) (no date) (unknown) (unknown) aspirin 81 mg tablet,delayed 81 mg PO DAILY 02/08/23 02/08/23 (units unknown) (unknown) (unknown) (no date) (unknown) (unknown) atorvastatin 20 mg tablet 20 mg PO BEDTIME 02/08/23 02/08/23 (units unknown) (unknown) (unknown) (no date) (unknown) (unknown) cholecalciferol (vitamin D3) 25 1,000 unit PO DAILY 02/08/23 02/08/23 (units unknown) (unknown) (unknown) (no date) (unknown) (unknown) complaints on the left side. Right side is unremarkable. (units unknown) (unknown) (unknown) (no date) (unknown) (unknown) diclofenac sodium 1 % topical gel 4 g topical QID 02/08/23 02/08/23 (units unknown) (unknown) (unknown) (no date) (unknown) (unknown) did break his hip and will need surgery. (units unknown) (unknown) (unknown) (no date) (unknown) (unknown) ferrous sulfate 325 mg (65 mg 325 mg PO DAILY 02/08/23 02/08/23 (units unknown) (unknown) (unknown) (no date) (unknown) (unknown) gabapentin 300 mg capsule 300 mg PO DAILY 02/08/23 02/08/23 (units unknown) (unknown) (unknown) (no date) (unknown) (unknown) gabapentin 300 mg capsule 600 mg PO BID 02/08/23 02/08/23 (units unknown) (unknown) (unknown) (no date) (unknown) (unknown) gentleman cooperative slight pain in the left hip with movement otherwise (units unknown) (unknown) (unknown) (no date) (unknown) (unknown) his head. It is unclear if there was a loss consciousness or not. He was (units unknown) (unknown) (unknown) (no date) (unknown) (unknown) his left hip sustaining a left intertrochanteric displaced hip fracture. Care (units unknown) (unknown) (unknown) (no date) (unknown) (unknown) household members: family (units unknown) (unknown) (unknown) (no date) (unknown) (unknown) in a group family home on [facility]. He does have a history of a stroke. (units unknown) (unknown) (unknown) (no date) (unknown) (unknown) iron) tablet,delayed release (units unknown) (unknown) (unknown) (no date) (unknown) (unknown) is reviewed with Dr. Moore. She will consult. Patient is informed that he (units unknown) (unknown) (unknown) (no date) (unknown) (unknown) ischemic changes are appreciated. Appropriate intervals and axis. (units unknown) (unknown) (unknown) (no date) (unknown) (unknown) last seizure approximately 3 years ago. He is mild dementia and currently lives (units unknown) (unknown) (unknown) (no date) (unknown) (unknown) lateral aspect of the left hip. Neurovascularly intact. No knee or ankle (units unknown) (unknown) (unknown) (no date) (unknown) (unknown) levetiracetam 750 mg tablet 750 mg PO BID 10/20/19 02/08/23 (units unknown) (unknown) (unknown) (no date) (unknown) (unknown) mcg (1,000 unit) tablet (units unknown) (unknown) (unknown) (no date) (unknown) (unknown) med list is updated in the chart today (units unknown) (unknown) (unknown) (no date) (unknown) (unknown) melatonin 3 mg tablet 6 mg PO BEDTIME 02/08/23 02/08/23 (units unknown) (unknown) (unknown) (no date) (unknown) (unknown) metoprolol tartrate 25 mg tablet 12.5 mg PO BID 10/20/19 02/08/23 (units unknown) (unknown) (unknown) (no date) (unknown) (unknown) moving he has no pain complaints. Leg is held in slight external rotation with (units unknown) (unknown) (unknown) (no date) (unknown) (unknown) normal MCV (units unknown) (unknown) (unknown) (no date) (unknown) (unknown) normocephalic (units unknown) (unknown) (unknown) (no date) (unknown) (unknown) omeprazole 20 mg capsule,delayed 20 mg PO DAILY 02/08/23 02/08/23 (units unknown) (unknown) (unknown) (no date) (unknown) (unknown) oral powder packet (Miralax) (units unknown) (unknown) (unknown) (no date) (unknown) (unknown) pain. Acute problem uncertain prognosis (units unknown) (unknown) (unknown) (no date) (unknown) (unknown) polyethylene glycol 3350 17 gram 17 g PO BID 02/08/23 02/08/23 (units unknown) (unknown) (unknown) (no date) (unknown) (unknown) prazosin 1 mg capsule 1 mg PO BEDTIME 02/08/23 02/08/23 (units unknown) (unknown) (unknown) (no date) (unknown) (unknown) release (units unknown) (unknown) (unknown) (no date) (unknown) (unknown) sennosides 8.6 mg tablet (senna) 8.6 mg PO BID 02/08/23 02/08/23 (units unknown) (unknown) (unknown) (no date) (unknown) (unknown) sertraline 100 mg tablet 100 mg PO BEDTIME 02/08/23 02/08/23 (units unknown) (unknown) (unknown) (no date) (unknown) (unknown) the knee at 45? for comfort. He is neurovascularly intact. (units unknown) (unknown) (unknown) (no date) (unknown) (unknown) tissue injury, head injury, cervical spine injury (units unknown) (unknown) (unknown) (no date) (unknown) (unknown) tobacco type: cigarettes (units unknown) (unknown) (unknown) (no date) (unknown) (unknown) unable to stand up. Describes no other fevers, cough, chills. When he is not (units unknown) (unknown) (unknown) (no date) (unknown) (unknown) unremarkable exam (units unknown) (unknown) Result panel 123 (unknown) (no date) (unknown) (unknown) (no value) (units unknown) (unknown) (unknown) (no date) (unknown) (unknown) (Arthritis Pain (diclofenac)) (units unknown) (unknown) (unknown) (no date) (unknown) (unknown) (past 8 hours): (units unknown) (unknown) (unknown) (no date) (unknown) (unknown) * Continue Keppra (units unknown) (unknown) (unknown) (no date) (unknown) (unknown) * D5 NS at 80 cc/HR, BS q.6 while NPO (units unknown) (unknown) (unknown) (no date) (unknown) (unknown) * Dr. Moore to consult and will take the patient to the OR later today (units unknown) (unknown) (unknown) (no date) (unknown) (unknown) * Jaimes placement, I+O (units unknown) (unknown) (unknown) (no date) (unknown) (unknown) * H+H (units unknown) (unknown) (unknown) (no date) (unknown) (unknown) * NPO with the exception of sips with meds (units unknown) (unknown) (unknown) (no date) (unknown) (unknown) * Pain and antiemetic management, ice for comfort, lidocaine patches, Voltaren (units unknown) (unknown) (unknown) (no date) (unknown) (unknown) * UA ordered, trend CBC, BMP (units unknown) (unknown) (unknown) (no date) (unknown) (unknown) 01:05 01:05 (units unknown) (unknown) (unknown) (no date) (unknown) (unknown) 02:52 02/08/23 (units unknown) (unknown) (unknown) (no date) (unknown) (unknown) 02:53 (units unknown) (unknown) (unknown) (no date) (unknown) (unknown) 02/07/23 (units unknown) (unknown) (unknown) (no date) (unknown) (unknown) 02/08/23 01:05 (units unknown) (unknown) (unknown) (no date) (unknown) (unknown) 02/08/23 02/08/23 (units unknown) (unknown) (unknown) (no date) (unknown) (unknown) 23:26 02/08/23 (units unknown) (unknown) (unknown) (no date) (unknown) (unknown) [id number] (units unknown) (unknown) (unknown) (no date) (unknown) (unknown) ALT 41 (units unknown) (unknown) (unknown) (no date) (unknown) (unknown) AST 36 (units unknown) (unknown) (unknown) (no date) (unknown) (unknown) Abdomen: Soft nontender, negative for organomegaly, or masses. Bowel sounds (units unknown) (unknown) (unknown) (no date) (unknown) (unknown) Age/Sex: 77 / M (units unknown) (unknown) (unknown) (no date) (unknown) (unknown) Albumin 3.9 (units unknown) (unknown) (unknown) (no date) (unknown) (unknown) Albumin/Globulin Ratio 1.2 (units unknown) (unknown) (unknown) (no date) (unknown) (unknown) Alkaline Phosphatase 151 H (units unknown) (unknown) (unknown) (no date) (unknown) (unknown) All 12 point systems reviewed with the patient and are negative except otherwise (units unknown) (unknown) (unknown) (no date) (unknown) (unknown) Allergies (units unknown) (unknown) (unknown) (no date) (unknown) (unknown) Allergy/AdvReac Type Severity Reaction Status Date / Time (units unknown) (unknown) (unknown) (no date) (unknown) (unknown) Alzheimer dementia (units unknown) (unknown) (unknown) (no date) (unknown) (unknown) Alzheimer's dementia (units unknown) (unknown) (unknown) (no date) (unknown) (unknown) Anxiety (units unknown) (unknown) (unknown) (no date) (unknown) (unknown) Assessment + Plan narrative: (units unknown) (unknown) (unknown) (no date) (unknown) (unknown) Assessment + Plan (units unknown) (unknown) (unknown) (no date) (unknown) (unknown) BUN 16 (units unknown) (unknown) (unknown) (no date) (unknown) (unknown) BUN/Creatinine Ratio 16.5 (units unknown) (unknown) (unknown) (no date) (unknown) (unknown) Baso # (Auto) 0 (units unknown) (unknown) (unknown) (no date) (unknown) (unknown) Baso % (Auto) 0.3 (units unknown) (unknown) (unknown) (no date) (unknown) (unknown) Blood Pressure 131/73 107/56 L (units unknown) (unknown) (unknown) (no date) (unknown) (unknown) Calcium 8.8 (units unknown) (unknown) (unknown) (no date) (unknown) (unknown) Carbon Dioxide 28 (units unknown) (unknown) (unknown) (no date) (unknown) (unknown) Cardio: regular rate and rhythm without murmur, rubs, or gallops, no carotid (units unknown) (unknown) (unknown) (no date) (unknown) (unknown) Chest pain (units unknown) (unknown) (unknown) (no date) (unknown) (unknown) Chest: Normal AP diameter and contour without kyphoscoliosis, Equal chest rise (units unknown) (unknown) (unknown) (no date) (unknown) (unknown) Chief complaint: Left femoral neck fracture (units unknown) (unknown) (unknown) (no date) (unknown) (unknown) Chloride 104 (units unknown) (unknown) (unknown) (no date) (unknown) (unknown) Creatinine 0.97 (units unknown) (unknown) (unknown) (no date) (unknown) (unknown) : 1945 Acct:[id number] (units unknown) (unknown) (unknown) (no date) (unknown) (unknown) Date Patient Seen: 02/08/23 (units unknown) (unknown) (unknown) (no date) (unknown) (unknown) Date of Service: 02/08/23 (units unknown) (unknown) (unknown) (no date) (unknown) (unknown) Depression (units unknown) (unknown) (unknown) (no date) (unknown) (unknown) Easy bruisability (units unknown) (unknown) (unknown) (no date) (unknown) (unknown) Eos # (Auto) 100 (units unknown) (unknown) (unknown) (no date) (unknown) (unknown) Eos % (Auto) 1.1 L (units unknown) (unknown) (unknown) (no date) (unknown) (unknown) Epilepsy (units unknown) (unknown) (unknown) (no date) (unknown) (unknown) Estimated GFR > 60 (units unknown) (unknown) (unknown) (no date) (unknown) (unknown) Exam Narrative: (units unknown) (unknown) (unknown) (no date) (unknown) (unknown) Exam (units unknown) (unknown) (unknown) (no date) (unknown) (unknown) Fall from bed, resulting in left femoral neck fracture, acute, present on (units unknown) (unknown) (unknown) (no date) (unknown) (unknown) GERD, HTN who resides at a facility on [facility], was brought into the ED (units unknown) (unknown) (unknown) (no date) (unknown) (unknown) General: Patient is a elderly gentleman, symptoms of Alzheimer's dementia who (units unknown) (unknown) (unknown) (no date) (unknown) (unknown) Globulin 3.3 (units unknown) (unknown) (unknown) (no date) (unknown) (unknown) Glucose 103 (units unknown) (unknown) (unknown) (no date) (unknown) (unknown) HEENT: Normocephalic, atraumatic, extraocular muscles intact, oral pharynx is (units unknown) (unknown) (unknown) (no date) (unknown) (unknown) Hct 32.3 L (units unknown) (unknown) (unknown) (no date) (unknown) (unknown) Heart burn (units unknown) (unknown) (unknown) (no date) (unknown) (unknown) Hgb 11.1 L (units unknown) (unknown) (unknown) (no date) (unknown) (unknown) History + Physical Report (units unknown) (unknown) (unknown) (no date) (unknown) (unknown) History of Present Illness (units unknown) (unknown) (unknown) (no date) (unknown) (unknown) Home Medications and Allergies (units unknown) (unknown) (unknown) (no date) (unknown) (unknown) Home Medications (units unknown) (unknown) (unknown) (no date) (unknown) (unknown) [address] [address] (units unknown) (unknown) (unknown) (no date) (unknown) (unknown) Laboratory Results - last 24 hr (units unknown) (unknown) (unknown) (no date) (unknown) (unknown) Labs (units unknown) (unknown) (unknown) (no date) (unknown) (unknown) Labs: (units unknown) (unknown) (unknown) (no date) (unknown) (unknown) Donna Garcia is a 77-year-old male with a past medical history of seizure (units unknown) (unknown) (unknown) (no date) (unknown) (unknown) Lungs: Auscultation of all lung arce are clear without adventitious sounds, (units unknown) (unknown) (unknown) (no date) (unknown) (unknown) Lymph # (Auto) 1600 (units unknown) (unknown) (unknown) (no date) (unknown) (unknown) Lymph % (Auto) 23.4 L (units unknown) (unknown) (unknown) (no date) (unknown) (unknown) MCH 33.7 (units unknown) (unknown) (unknown) (no date) (unknown) (unknown) MCHC 34.2 (units unknown) (unknown) (unknown) (no date) (unknown) (unknown) MCV 98.5 (units unknown) (unknown) (unknown) (no date) (unknown) (unknown) Medical History (units unknown) (unknown) (unknown) (no date) (unknown) (unknown) Medication Instructions Recorded Confirmed Type (units unknown) (unknown) (unknown) (no date) (unknown) (unknown) Meds (units unknown) (unknown) (unknown) (no date) (unknown) (unknown) Aurora # (Auto) 500 (units unknown) (unknown) (unknown) (no date) (unknown) (unknown) Aurora % (Auto) 7.6 (units unknown) (unknown) (unknown) (no date) (unknown) (unknown) Musculoskeletal: Extremities no effusions, cyanosis, clubbing or edema present. (units unknown) (unknown) (unknown) (no date) (unknown) (unknown) Narrative (units unknown) (unknown) (unknown) (no date) (unknown) (unknown) Narrative: (units unknown) (unknown) (unknown) (no date) (unknown) (unknown) Neck pain (units unknown) (unknown) (unknown) (no date) (unknown) (unknown) Negative for JVD (units unknown) (unknown) (unknown) (no date) (unknown) (unknown) Neuro: Alert and orientated moves all extremities, sensation to touch intact, (units unknown) (unknown) (unknown) (no date) (unknown) (unknown) Neut # (Auto) 4500 (units unknown) (unknown) (unknown) (no date) (unknown) (unknown) Neut % (Auto) 67.6 (units unknown) (unknown) (unknown) (no date) (unknown) (unknown) No Known Drug Allergies Allergy Verified 11/12/20 08:34 (units unknown) (unknown) (unknown) (no date) (unknown) (unknown) No history of previous surgery (units unknown) (unknown) (unknown) (no date) (unknown) (unknown) Numbness and tingling (units unknown) (unknown) (unknown) (no date) (unknown) (unknown) Objective (units unknown) (unknown) (unknown) (no date) (unknown) (unknown) Osteoarthritis (units unknown) (unknown) (unknown) (no date) (unknown) (unknown) Oxygen Delivery Method Room Air Room Air (units unknown) (unknown) (unknown) (no date) (unknown) (unknown) Oxygen Delivery Method Room Air (units unknown) (unknown) (unknown) (no date) (unknown) (unknown) PFSH (units unknown) (unknown) (unknown) (no date) (unknown) (unknown) Pain (units unknown) (unknown) (unknown) (no date) (unknown) (unknown) Patient: Donna Garcia MR#: [id number] (units unknown) (unknown) (unknown) (no date) (unknown) (unknown) Plt Count 196 (units unknown) (unknown) (unknown) (no date) (unknown) (unknown) Potassium 3.9 (units unknown) (unknown) (unknown) (no date) (unknown) (unknown) Provider: Edita Galindo-BC (units unknown) (unknown) (unknown) (no date) (unknown) (unknown) Psych: Patient . (units unknown) (unknown) (unknown) (no date) (unknown) (unknown) Pulse Oximetry 96 93 (units unknown) (unknown) (unknown) (no date) (unknown) (unknown) Pulse Rate 70 66 (units unknown) (unknown) (unknown) (no date) (unknown) (unknown) RBBB (right bundle branch block) (units unknown) (unknown) (unknown) (no date) (unknown) (unknown) RBC 3.28 L (units unknown) (unknown) (unknown) (no date) (unknown) (unknown) RDW 16.6 H (units unknown) (unknown) (unknown) (no date) (unknown) (unknown) Respiratory Rate 16 18 (units unknown) (unknown) (unknown) (no date) (unknown) (unknown) Review of Systems (units unknown) (unknown) (unknown) (no date) (unknown) (unknown) Seizure disorder, chronic, present on admission (units unknown) (unknown) (unknown) (no date) (unknown) (unknown) Seizures (units unknown) (unknown) (unknown) (no date) (unknown) (unknown) Signed By: (units unknown) (unknown) (unknown) (no date) (unknown) (unknown) Skin: Warm dry and intact without rashes, ulcerations or petechiae. (units unknown) (unknown) (unknown) (no date) (unknown) (unknown) Smoking Status: Current every day smoker (units unknown) (unknown) (unknown) (no date) (unknown) (unknown) Social History (units unknown) (unknown) (unknown) (no date) (unknown) (unknown) Sodium 137 (units unknown) (unknown) (unknown) (no date) (unknown) (unknown) Surgical History (units unknown) (unknown) (unknown) (no date) (unknown) (unknown) TIA (transient ischemic attack) (units unknown) (unknown) (unknown) (no date) (unknown) (unknown) Temperature 98.6 F (units unknown) (unknown) (unknown) (no date) (unknown) (unknown) Time Patient Seen: 03:03 (units unknown) (unknown) (unknown) (no date) (unknown) (unknown) Total Bilirubin 0.3 (units unknown) (unknown) (unknown) (no date) (unknown) (unknown) Total Protein 7.2 (units unknown) (unknown) (unknown) (no date) (unknown) (unknown) Troponin I < 0.012 (units unknown) (unknown) (unknown) (no date) (unknown) (unknown) Vital Signs (units unknown) (unknown) (unknown) (no date) (unknown) (unknown) Vitals temp 98.6?, 107/56, 66, 18, 93% on room air. Laboratory workups are (units unknown) (unknown) (unknown) (no date) (unknown) (unknown) WBC 6.6 (units unknown) (unknown) (unknown) (no date) (unknown) (unknown) [Embedded Image Not Available] (units unknown) (unknown) (unknown) (no date) (unknown) (unknown) a question as to whether the patient had hit his head or had a LOC, head CT was (units unknown) (unknown) (unknown) (no date) (unknown) (unknown) acetaminophen 500 mg tablet 1,000 mg PO TID 02/08/23 02/08/23 History (units unknown) (unknown) (unknown) (no date) (unknown) (unknown) admission (units unknown) (unknown) (unknown) (no date) (unknown) (unknown) after rolling out of bed landing on the floor fracturing left femur. There was (units unknown) (unknown) (unknown) (no date) (unknown) (unknown) after rolling out of bed landing on the floor fracturing left femur. (units unknown) (unknown) (unknown) (no date) (unknown) (unknown) alcohol intake: current (units unknown) (unknown) (unknown) (no date) (unknown) (unknown) appears older than stated age, in no distress at this time. (units unknown) (unknown) (unknown) (no date) (unknown) (unknown) are present in all 4 quadrants without guarding or rebound, no CVA tenderness. (units unknown) (unknown) (unknown) (no date) (unknown) (unknown) aspirin 81 mg tablet,delayed 81 mg PO DAILY 02/08/23 02/08/23 History (units unknown) (unknown) (unknown) (no date) (unknown) (unknown) at this time. (units unknown) (unknown) (unknown) (no date) (unknown) (unknown) atorvastatin 20 mg tablet 20 mg PO BEDTIME 02/08/23 02/08/23 History (units unknown) (unknown) (unknown) (no date) (unknown) (unknown) bruit, no cardiac pulsations present. (units unknown) (unknown) (unknown) (no date) (unknown) (unknown) cholecalciferol (vitamin D3) 25 1,000 unit PO DAILY 02/08/23 02/08/23 History (units unknown) (unknown) (unknown) (no date) (unknown) (unknown) clear and mucous membranes are moist. Neck is supple and symmetric, trachea is (units unknown) (unknown) (unknown) (no date) (unknown) (unknown) demonstrated acute fracture of left femoral neck. EKG I personally reviewed (units unknown) (unknown) (unknown) (no date) (unknown) (unknown) diclofenac sodium 1 % topical gel 4 g topical QID 02/08/23 02/08/23 History (units unknown) (unknown) (unknown) (no date) (unknown) (unknown) disorder, history of TIA, RTBBB Alzheimer's dementia, HDL, iron-deficiency, (units unknown) (unknown) (unknown) (no date) (unknown) (unknown) documented. Please note accuracy of ROS is impaired due to the patient's (units unknown) (unknown) (unknown) (no date) (unknown) (unknown) ferrous sulfate 325 mg (65 mg 325 mg PO DAILY 02/08/23 02/08/23 History (units unknown) (unknown) (unknown) (no date) (unknown) (unknown) gabapentin 300 mg capsule 300 mg PO DAILY 02/08/23 02/08/23 History (units unknown) (unknown) (unknown) (no date) (unknown) (unknown) gabapentin 300 mg capsule 600 mg PO BID 02/08/23 02/08/23 History (units unknown) (unknown) (unknown) (no date) (unknown) (unknown) hip pain, denies chest pain, shortness at breath, any other pain or discomfort (units unknown) (unknown) (unknown) (no date) (unknown) (unknown) household members: family (units unknown) (unknown) (unknown) (no date) (unknown) (unknown) intact radial and pedal pulses are normal. Left leg externally rotated at the (units unknown) (unknown) (unknown) (no date) (unknown) (unknown) iron) tablet,delayed release (units unknown) (unknown) (unknown) (no date) (unknown) (unknown) knee for 45? for patient comfort (units unknown) (unknown) (unknown) (no date) (unknown) (unknown) levetiracetam 750 mg tablet 750 mg PO BID 10/20/19 02/08/23 History (units unknown) (unknown) (unknown) (no date) (unknown) (unknown) mcg (1,000 unit) tablet (units unknown) (unknown) (unknown) (no date) (unknown) (unknown) melatonin 3 mg tablet 6 mg PO BEDTIME 02/08/23 02/08/23 History (units unknown) (unknown) (unknown) (no date) (unknown) (unknown) metoprolol tartrate 25 mg tablet 12.5 mg PO BID 10/20/19 02/08/23 History (units unknown) (unknown) (unknown) (no date) (unknown) (unknown) midline, no adenopathy, no thyroid enlargement, nontender, no masses palpated. (units unknown) (unknown) (unknown) (no date) (unknown) (unknown) negative for any acute changes in ED. unable to obtain accurate HPI, ROS, med (units unknown) (unknown) (unknown) (no date) (unknown) (unknown) no gross deficits noted of cranial nerves. (units unknown) (unknown) (unknown) (no date) (unknown) (unknown) normal, head CT, C-spine, chest x-ray are all without acute changes. Hip x-ray (units unknown) (unknown) (unknown) (no date) (unknown) (unknown) omeprazole 20 mg capsule,delayed 20 mg PO DAILY 02/08/23 02/08/23 History (units unknown) (unknown) (unknown) (no date) (unknown) (unknown) oral powder packet (Miralax) (units unknown) (unknown) (unknown) (no date) (unknown) (unknown) polyethylene glycol 3350 17 gram 17 g PO BID 02/08/23 02/08/23 History (units unknown) (unknown) (unknown) (no date) (unknown) (unknown) prazosin 1 mg capsule 1 mg PO BEDTIME 02/08/23 02/08/23 History (units unknown) (unknown) (unknown) (no date) (unknown) (unknown) reconciliation due to patient's Alzheimer dementia. Patient complains of left (units unknown) (unknown) (unknown) (no date) (unknown) (unknown) release (units unknown) (unknown) (unknown) (no date) (unknown) (unknown) sennosides 8.6 mg tablet (senna) 8.6 mg PO BID 02/08/23 02/08/23 History (units unknown) (unknown) (unknown) (no date) (unknown) (unknown) sertraline 100 mg tablet 100 mg PO BEDTIME 02/08/23 02/08/23 History (units unknown) (unknown) (unknown) (no date) (unknown) (unknown) sinus rhythm of 66 with an incomplete RBBB without ST or T-wave changes. (units unknown) (unknown) (unknown) (no date) (unknown) (unknown) unremarkable with the exception of HGB 11/HCT 32, alk-phos 151, troponin is (units unknown) (unknown) (unknown) (no date) (unknown) (unknown) wheezes, rhonchi, or rales. (units unknown) (unknown) (unknown) (no date) (unknown) (unknown) without nasal flaring, retractions, tachypneic or labored breathing. (units unknown) (unknown) Result panel 124 (unknown) (no date) (unknown) (unknown) (no value) (units unknown) (unknown) (unknown) (no date) (unknown) (unknown) (Arthritis Pain (diclofenac)) (units unknown) (unknown) (unknown) (no date) (unknown) (unknown) (past 8 hours): (units unknown) (unknown) (unknown) (no date) (unknown) (unknown) * Continue Keppra (units unknown) (unknown) (unknown) (no date) (unknown) (unknown) * Continue sertraline, prazosin (units unknown) (unknown) (unknown) (no date) (unknown) (unknown) * D5 NS at 80 cc/HR, BS q.6 while NPO (units unknown) (unknown) (unknown) (no date) (unknown) (unknown) * Dr. Moore to consult and will take the patient to the OR later today (units unknown) (unknown) (unknown) (no date) (unknown) (unknown) * Fall precautions (units unknown) (unknown) (unknown) (no date) (unknown) (unknown) * Jaimes placement, I+O (units unknown) (unknown) (unknown) (no date) (unknown) (unknown) * H+H (units unknown) (unknown) (unknown) (no date) (unknown) (unknown) * Hold Lipitor until after surgery (units unknown) (unknown) (unknown) (no date) (unknown) (unknown) * Hold metoprolol as BP is soft at this time 107/56 (units unknown) (unknown) (unknown) (no date) (unknown) (unknown) * Limit patient's stimulation + agitation as much as possible (units unknown) (unknown) (unknown) (no date) (unknown) (unknown) * NPO with the exception of sips with meds (units unknown) (unknown) (unknown) (no date) (unknown) (unknown) * Pain and antiemetic management, ice for comfort, lidocaine patches, Voltaren (units unknown) (unknown) (unknown) (no date) (unknown) (unknown) * Seizure precautions (units unknown) (unknown) (unknown) (no date) (unknown) (unknown) * UA ordered, trend CBC, BMP (units unknown) (unknown) (unknown) (no date) (unknown) (unknown) 01:05 01:05 (units unknown) (unknown) (unknown) (no date) (unknown) (unknown) 02:52 02/08/23 (units unknown) (unknown) (unknown) (no date) (unknown) (unknown) 02:53 (units unknown) (unknown) (unknown) (no date) (unknown) (unknown) 02/07/23 (units unknown) (unknown) (unknown) (no date) (unknown) (unknown) 02/08/23 01:05 (units unknown) (unknown) (unknown) (no date) (unknown) (unknown) 02/08/23 02/08/23 (units unknown) (unknown) (unknown) (no date) (unknown) (unknown) 23:26 02/08/23 (units unknown) (unknown) (unknown) (no date) (unknown) (unknown) [id number] (units unknown) (unknown) (unknown) (no date) (unknown) (unknown) ALT 41 (units unknown) (unknown) (unknown) (no date) (unknown) (unknown) AST 36 (units unknown) (unknown) (unknown) (no date) (unknown) (unknown) Abdomen: Soft nontender, negative for organomegaly, or masses. Bowel sounds (units unknown) (unknown) (unknown) (no date) (unknown) (unknown) Age/Sex: 77 / M (units unknown) (unknown) (unknown) (no date) (unknown) (unknown) Albumin 3.9 (units unknown) (unknown) (unknown) (no date) (unknown) (unknown) Albumin/Globulin Ratio 1.2 (units unknown) (unknown) (unknown) (no date) (unknown) (unknown) Alkaline Phosphatase 151 H (units unknown) (unknown) (unknown) (no date) (unknown) (unknown) All 12 point systems reviewed with the patient and are negative except otherwise (units unknown) (unknown) (unknown) (no date) (unknown) (unknown) Allergies (units unknown) (unknown) (unknown) (no date) (unknown) (unknown) Allergy/AdvReac Type Severity Reaction Status Date / Time (units unknown) (unknown) (unknown) (no date) (unknown) (unknown) Alzheimer dementia (units unknown) (unknown) (unknown) (no date) (unknown) (unknown) Alzheimer's dementia (units unknown) (unknown) (unknown) (no date) (unknown) (unknown) Alzheimer's dementia, chronic, present on admission (units unknown) (unknown) (unknown) (no date) (unknown) (unknown) Anxiety (units unknown) (unknown) (unknown) (no date) (unknown) (unknown) Assessment + Plan narrative: (units unknown) (unknown) (unknown) (no date) (unknown) (unknown) Assessment + Plan (units unknown) (unknown) (unknown) (no date) (unknown) (unknown) BUN 16 (units unknown) (unknown) (unknown) (no date) (unknown) (unknown) BUN/Creatinine Ratio 16.5 (units unknown) (unknown) (unknown) (no date) (unknown) (unknown) Baso # (Auto) 0 (units unknown) (unknown) (unknown) (no date) (unknown) (unknown) Baso % (Auto) 0.3 (units unknown) (unknown) (unknown) (no date) (unknown) (unknown) Blood Pressure 131/73 107/56 L (units unknown) (unknown) (unknown) (no date) (unknown) (unknown) Calcium 8.8 (units unknown) (unknown) (unknown) (no date) (unknown) (unknown) Carbon Dioxide 28 (units unknown) (unknown) (unknown) (no date) (unknown) (unknown) Cardio: regular rate and rhythm without murmur, rubs, or gallops, no carotid (units unknown) (unknown) (unknown) (no date) (unknown) (unknown) Chest pain (units unknown) (unknown) (unknown) (no date) (unknown) (unknown) Chest: Normal AP diameter and contour without kyphoscoliosis, Equal chest rise (units unknown) (unknown) (unknown) (no date) (unknown) (unknown) Chief complaint: Left femoral neck fracture (units unknown) (unknown) (unknown) (no date) (unknown) (unknown) Chloride 104 (units unknown) (unknown) (unknown) (no date) (unknown) (unknown) Creatinine 0.97 (units unknown) (unknown) (unknown) (no date) (unknown) (unknown) : 1945 Acct:[id number] (units unknown) (unknown) (unknown) (no date) (unknown) (unknown) Date Patient Seen: 02/08/23 (units unknown) (unknown) (unknown) (no date) (unknown) (unknown) Date of Service: 02/08/23 (units unknown) (unknown) (unknown) (no date) (unknown) (unknown) Depression (units unknown) (unknown) (unknown) (no date) (unknown) (unknown) Easy bruisability (units unknown) (unknown) (unknown) (no date) (unknown) (unknown) Eos # (Auto) 100 (units unknown) (unknown) (unknown) (no date) (unknown) (unknown) Eos % (Auto) 1.1 L (units unknown) (unknown) (unknown) (no date) (unknown) (unknown) Epilepsy (units unknown) (unknown) (unknown) (no date) (unknown) (unknown) Estimated GFR > 60 (units unknown) (unknown) (unknown) (no date) (unknown) (unknown) Exam Narrative: (units unknown) (unknown) (unknown) (no date) (unknown) (unknown) Exam (units unknown) (unknown) (unknown) (no date) (unknown) (unknown) Fall from bed, resulting in left femoral neck fracture, acute, present on (units unknown) (unknown) (unknown) (no date) (unknown) (unknown) GERD, HTN who resides at a facility on [facility], was brought into the ED (units unknown) (unknown) (unknown) (no date) (unknown) (unknown) General: Patient is a elderly gentleman, symptoms of Alzheimer's dementia who (units unknown) (unknown) (unknown) (no date) (unknown) (unknown) Globulin 3.3 (units unknown) (unknown) (unknown) (no date) (unknown) (unknown) Glucose 103 (units unknown) (unknown) (unknown) (no date) (unknown) (unknown) HEENT: Normocephalic, atraumatic, extraocular muscles intact, oral pharynx is (units unknown) (unknown) (unknown) (no date) (unknown) (unknown) Hct 32.3 L (units unknown) (unknown) (unknown) (no date) (unknown) (unknown) Heart burn (units unknown) (unknown) (unknown) (no date) (unknown) (unknown) Hgb 11.1 L (units unknown) (unknown) (unknown) (no date) (unknown) (unknown) History + Physical Report (units unknown) (unknown) (unknown) (no date) (unknown) (unknown) History of Present Illness (units unknown) (unknown) (unknown) (no date) (unknown) (unknown) Home Medications and Allergies (units unknown) (unknown) (unknown) (no date) (unknown) (unknown) Home Medications (units unknown) (unknown) (unknown) (no date) (unknown) (unknown) Hyperlipidemia, chronic, present on admission (units unknown) (unknown) (unknown) (no date) (unknown) (unknown) Hypertension, essential, chronic, present on admission (units unknown) (unknown) (unknown) (no date) (unknown) (unknown) [address] [id number] (units unknown) (unknown) (unknown) (no date) (unknown) (unknown) Laboratory Results - last 24 hr (units unknown) (unknown) (unknown) (no date) (unknown) (unknown) Labs (units unknown) (unknown) (unknown) (no date) (unknown) (unknown) Labs: (units unknown) (unknown) (unknown) (no date) (unknown) (unknown) Donna Garcia is a 77-year-old male with a past medical history of seizure (units unknown) (unknown) (unknown) (no date) (unknown) (unknown) Lungs: Auscultation of all lung arce are clear without adventitious sounds, (units unknown) (unknown) (unknown) (no date) (unknown) (unknown) Lymph # (Auto) 1600 (units unknown) (unknown) (unknown) (no date) (unknown) (unknown) Lymph % (Auto) 23.4 L (units unknown) (unknown) (unknown) (no date) (unknown) (unknown) MCH 33.7 (units unknown) (unknown) (unknown) (no date) (unknown) (unknown) MCHC 34.2 (units unknown) (unknown) (unknown) (no date) (unknown) (unknown) MCV 98.5 (units unknown) (unknown) (unknown) (no date) (unknown) (unknown) Medical History (units unknown) (unknown) (unknown) (no date) (unknown) (unknown) Medication Instructions Recorded Confirmed Type (units unknown) (unknown) (unknown) (no date) (unknown) (unknown) Meds (units unknown) (unknown) (unknown) (no date) (unknown) (unknown) Aurora # (Auto) 500 (units unknown) (unknown) (unknown) (no date) (unknown) (unknown) Aurora % (Auto) 7.6 (units unknown) (unknown) (unknown) (no date) (unknown) (unknown) Musculoskeletal: Extremities no effusions, cyanosis, clubbing or edema present. (units unknown) (unknown) (unknown) (no date) (unknown) (unknown) Narrative (units unknown) (unknown) (unknown) (no date) (unknown) (unknown) Narrative: (units unknown) (unknown) (unknown) (no date) (unknown) (unknown) Neck pain (units unknown) (unknown) (unknown) (no date) (unknown) (unknown) Negative for JVD (units unknown) (unknown) (unknown) (no date) (unknown) (unknown) Neuro: Alert and orientated moves all extremities, sensation to touch intact, (units unknown) (unknown) (unknown) (no date) (unknown) (unknown) Neut # (Auto) 4500 (units unknown) (unknown) (unknown) (no date) (unknown) (unknown) Neut % (Auto) 67.6 (units unknown) (unknown) (unknown) (no date) (unknown) (unknown) No Known Drug Allergies Allergy Verified 11/12/20 08:34 (units unknown) (unknown) (unknown) (no date) (unknown) (unknown) No history of previous surgery (units unknown) (unknown) (unknown) (no date) (unknown) (unknown) Numbness and tingling (units unknown) (unknown) (unknown) (no date) (unknown) (unknown) Objective (units unknown) (unknown) (unknown) (no date) (unknown) (unknown) Osteoarthritis (units unknown) (unknown) (unknown) (no date) (unknown) (unknown) Oxygen Delivery Method Room Air Room Air (units unknown) (unknown) (unknown) (no date) (unknown) (unknown) Oxygen Delivery Method Room Air (units unknown) (unknown) (unknown) (no date) (unknown) (unknown) PFSH (units unknown) (unknown) (unknown) (no date) (unknown) (unknown) Pain (units unknown) (unknown) (unknown) (no date) (unknown) (unknown) Patient: Donna Garcia MR#: [id number] (units unknown) (unknown) (unknown) (no date) (unknown) (unknown) Plt Count 196 (units unknown) (unknown) (unknown) (no date) (unknown) (unknown) Potassium 3.9 (units unknown) (unknown) (unknown) (no date) (unknown) (unknown) Provider: Edita Galindo (units unknown) (unknown) (unknown) (no date) (unknown) (unknown) Psych: Patient . (units unknown) (unknown) (unknown) (no date) (unknown) (unknown) Pulse Oximetry 96 93 (units unknown) (unknown) (unknown) (no date) (unknown) (unknown) Pulse Rate 70 66 (units unknown) (unknown) (unknown) (no date) (unknown) (unknown) RBBB (right bundle branch block) (units unknown) (unknown) (unknown) (no date) (unknown) (unknown) RBC 3.28 L (units unknown) (unknown) (unknown) (no date) (unknown) (unknown) RDW 16.6 H (units unknown) (unknown) (unknown) (no date) (unknown) (unknown) Respiratory Rate 16 18 (units unknown) (unknown) (unknown) (no date) (unknown) (unknown) Review of Systems (units unknown) (unknown) (unknown) (no date) (unknown) (unknown) Seizure disorder, chronic, present on admission (units unknown) (unknown) (unknown) (no date) (unknown) (unknown) Seizures (units unknown) (unknown) (unknown) (no date) (unknown) (unknown) Signed By: (units unknown) (unknown) (unknown) (no date) (unknown) (unknown) Skin: Warm dry and intact without rashes, ulcerations or petechiae. (units unknown) (unknown) (unknown) (no date) (unknown) (unknown) Smoking Status: Current every day smoker (units unknown) (unknown) (unknown) (no date) (unknown) (unknown) Social History (units unknown) (unknown) (unknown) (no date) (unknown) (unknown) Sodium 137 (units unknown) (unknown) (unknown) (no date) (unknown) (unknown) Surgical History (units unknown) (unknown) (unknown) (no date) (unknown) (unknown) TIA (transient ischemic attack) (units unknown) (unknown) (unknown) (no date) (unknown) (unknown) Temperature 98.6 F (units unknown) (unknown) (unknown) (no date) (unknown) (unknown) Time Patient Seen: 03:03 (units unknown) (unknown) (unknown) (no date) (unknown) (unknown) Total Bilirubin 0.3 (units unknown) (unknown) (unknown) (no date) (unknown) (unknown) Total Protein 7.2 (units unknown) (unknown) (unknown) (no date) (unknown) (unknown) Troponin I < 0.012 (units unknown) (unknown) (unknown) (no date) (unknown) (unknown) Vital Signs (units unknown) (unknown) (unknown) (no date) (unknown) (unknown) Vitals temp 98.6?, 107/56, 66, 18, 93% on room air. Laboratory workups are (units unknown) (unknown) (unknown) (no date) (unknown) (unknown) WBC 6.6 (units unknown) (unknown) (unknown) (no date) (unknown) (unknown) [Embedded Image Not Available] (units unknown) (unknown) (unknown) (no date) (unknown) (unknown) a question as to whether the patient had hit his head or had a LOC, head CT was (units unknown) (unknown) (unknown) (no date) (unknown) (unknown) acetaminophen 500 mg tablet 1,000 mg PO TID 02/08/23 02/08/23 History (units unknown) (unknown) (unknown) (no date) (unknown) (unknown) admission (units unknown) (unknown) (unknown) (no date) (unknown) (unknown) after rolling out of bed landing on the floor fracturing left femur. There was (units unknown) (unknown) (unknown) (no date) (unknown) (unknown) after rolling out of bed landing on the floor fracturing left femur. (units unknown) (unknown) (unknown) (no date) (unknown) (unknown) alcohol intake: current (units unknown) (unknown) (unknown) (no date) (unknown) (unknown) appears older than stated age, in no distress at this time. (units unknown) (unknown) (unknown) (no date) (unknown) (unknown) are present in all 4 quadrants without guarding or rebound, no CVA tenderness. (units unknown) (unknown) (unknown) (no date) (unknown) (unknown) aspirin 81 mg tablet,delayed 81 mg PO DAILY 02/08/23 02/08/23 History (units unknown) (unknown) (unknown) (no date) (unknown) (unknown) at this time. (units unknown) (unknown) (unknown) (no date) (unknown) (unknown) atorvastatin 20 mg tablet 20 mg PO BEDTIME 02/08/23 02/08/23 History (units unknown) (unknown) (unknown) (no date) (unknown) (unknown) bruit, no cardiac pulsations present. (units unknown) (unknown) (unknown) (no date) (unknown) (unknown) cholecalciferol (vitamin D3) 25 1,000 unit PO DAILY 02/08/23 02/08/23 History (units unknown) (unknown) (unknown) (no date) (unknown) (unknown) clear and mucous membranes are moist. Neck is supple and symmetric, trachea is (units unknown) (unknown) (unknown) (no date) (unknown) (unknown) demonstrated acute fracture of left femoral neck. EKG I personally reviewed (units unknown) (unknown) (unknown) (no date) (unknown) (unknown) diclofenac sodium 1 % topical gel 4 g topical QID 02/08/23 02/08/23 History (units unknown) (unknown) (unknown) (no date) (unknown) (unknown) disorder, history of TIA, RTBBB Alzheimer's dementia, HDL, iron-deficiency, (units unknown) (unknown) (unknown) (no date) (unknown) (unknown) documented. Please note accuracy of ROS is impaired due to the patient's (units unknown) (unknown) (unknown) (no date) (unknown) (unknown) ferrous sulfate 325 mg (65 mg 325 mg PO DAILY 02/08/23 02/08/23 History (units unknown) (unknown) (unknown) (no date) (unknown) (unknown) gabapentin 300 mg capsule 300 mg PO DAILY 02/08/23 02/08/23 History (units unknown) (unknown) (unknown) (no date) (unknown) (unknown) gabapentin 300 mg capsule 600 mg PO BID 02/08/23 02/08/23 History (units unknown) (unknown) (unknown) (no date) (unknown) (unknown) hip pain, denies chest pain, shortness at breath, any other pain or discomfort (units unknown) (unknown) (unknown) (no date) (unknown) (unknown) household members: family (units unknown) (unknown) (unknown) (no date) (unknown) (unknown) intact radial and pedal pulses are normal. Left leg externally rotated at the (units unknown) (unknown) (unknown) (no date) (unknown) (unknown) iron) tablet,delayed release (units unknown) (unknown) (unknown) (no date) (unknown) (unknown) knee for 45? for patient comfort (units unknown) (unknown) (unknown) (no date) (unknown) (unknown) levetiracetam 750 mg tablet 750 mg PO BID 10/20/19 02/08/23 History (units unknown) (unknown) (unknown) (no date) (unknown) (unknown) mcg (1,000 unit) tablet (units unknown) (unknown) (unknown) (no date) (unknown) (unknown) melatonin 3 mg tablet 6 mg PO BEDTIME 02/08/23 02/08/23 History (units unknown) (unknown) (unknown) (no date) (unknown) (unknown) metoprolol tartrate 25 mg tablet 12.5 mg PO BID 10/20/19 02/08/23 History (units unknown) (unknown) (unknown) (no date) (unknown) (unknown) midline, no adenopathy, no thyroid enlargement, nontender, no masses palpated. (units unknown) (unknown) (unknown) (no date) (unknown) (unknown) negative for any acute changes in ED. unable to obtain accurate HPI, ROS, med (units unknown) (unknown) (unknown) (no date) (unknown) (unknown) no gross deficits noted of cranial nerves. (units unknown) (unknown) (unknown) (no date) (unknown) (unknown) normal, head CT, C-spine, chest x-ray are all without acute changes. Hip x-ray (units unknown) (unknown) (unknown) (no date) (unknown) (unknown) omeprazole 20 mg capsule,delayed 20 mg PO DAILY 02/08/23 02/08/23 History (units unknown) (unknown) (unknown) (no date) (unknown) (unknown) oral powder packet (Miralax) (units unknown) (unknown) (unknown) (no date) (unknown) (unknown) polyethylene glycol 3350 17 gram 17 g PO BID 02/08/23 02/08/23 History (units unknown) (unknown) (unknown) (no date) (unknown) (unknown) prazosin 1 mg capsule 1 mg PO BEDTIME 02/08/23 02/08/23 History (units unknown) (unknown) (unknown) (no date) (unknown) (unknown) reconciliation due to patient's Alzheimer dementia. Patient complains of left (units unknown) (unknown) (unknown) (no date) (unknown) (unknown) release (units unknown) (unknown) (unknown) (no date) (unknown) (unknown) sennosides 8.6 mg tablet (senna) 8.6 mg PO BID 02/08/23 02/08/23 History (units unknown) (unknown) (unknown) (no date) (unknown) (unknown) sertraline 100 mg tablet 100 mg PO BEDTIME 02/08/23 02/08/23 History (units unknown) (unknown) (unknown) (no date) (unknown) (unknown) sinus rhythm of 66 with an incomplete RBBB without ST or T-wave changes. (units unknown) (unknown) (unknown) (no date) (unknown) (unknown) unremarkable with the exception of HGB 11/HCT 32, alk-phos 151, troponin is (units unknown) (unknown) (unknown) (no date) (unknown) (unknown) wheezes, rhonchi, or rales. (units unknown) (unknown) (unknown) (no date) (unknown) (unknown) without nasal flaring, retractions, tachypneic or labored breathing. (units unknown) (unknown) Result panel 125 (unknown) (no date) (unknown) (unknown) (no value) (units unknown) (unknown) (unknown) (no date) (unknown) (unknown) (Arthritis Pain (diclofenac)) (units unknown) (unknown) (unknown) (no date) (unknown) (unknown) (past 8 hours): (units unknown) (unknown) (unknown) (no date) (unknown) (unknown) * Continue Keppra (units unknown) (unknown) (unknown) (no date) (unknown) (unknown) * Continue gabapentin (units unknown) (unknown) (unknown) (no date) (unknown) (unknown) * Continue sertraline, prazosin (units unknown) (unknown) (unknown) (no date) (unknown) (unknown) * D5 NS at 80 cc/HR, BS q.6 while NPO (units unknown) (unknown) (unknown) (no date) (unknown) (unknown) * Dr. Moore to consult and will take the patient to the OR later today (units unknown) (unknown) (unknown) (no date) (unknown) (unknown) * Fall precautions (units unknown) (unknown) (unknown) (no date) (unknown) (unknown) * Jaimes placement, I+O (units unknown) (unknown) (unknown) (no date) (unknown) (unknown) * H+H (units unknown) (unknown) (unknown) (no date) (unknown) (unknown) * Hold Lipitor until after surgery (units unknown) (unknown) (unknown) (no date) (unknown) (unknown) * Hold metoprolol as BP is soft at this time 107/56 (units unknown) (unknown) (unknown) (no date) (unknown) (unknown) * Limit patient's stimulation + agitation as much as possible (units unknown) (unknown) (unknown) (no date) (unknown) (unknown) * NPO with the exception of sips with meds (units unknown) (unknown) (unknown) (no date) (unknown) (unknown) * Pain and antiemetic management, ice for comfort, lidocaine patches, Voltaren (units unknown) (unknown) (unknown) (no date) (unknown) (unknown) * Seizure precautions (units unknown) (unknown) (unknown) (no date) (unknown) (unknown) * UA ordered, trend CBC, BMP (units unknown) (unknown) (unknown) (no date) (unknown) (unknown) 01:05 01:05 (units unknown) (unknown) (unknown) (no date) (unknown) (unknown) 02:52 06/18/23 (units unknown) (unknown) (unknown) (no date) (unknown) (unknown) 02:53 (units unknown) (unknown) (unknown) (no date) (unknown) (unknown) 02/07/23 (units unknown) (unknown) (unknown) (no date) (unknown) (unknown) 02/08/23 01:05 (units unknown) (unknown) (unknown) (no date) (unknown) (unknown) 02/08/23 02/08/23 (units unknown) (unknown) (unknown) (no date) (unknown) (unknown) 23:26 02/08/23 (units unknown) (unknown) (unknown) (no date) (unknown) (unknown) 111801 (units unknown) (unknown) (unknown) (no date) (unknown) (unknown) ALT 41 (units unknown) (unknown) (unknown) (no date) (unknown) (unknown) AST 36 (units unknown) (unknown) (unknown) (no date) (unknown) (unknown) Abdomen: Soft nontender, negative for organomegaly, or masses. Bowel sounds (units unknown) (unknown) (unknown) (no date) (unknown) (unknown) Age/Sex: 77 / M (units unknown) (unknown) (unknown) (no date) (unknown) (unknown) Albumin 3.9 (units unknown) (unknown) (unknown) (no date) (unknown) (unknown) Albumin/Globulin Ratio 1.2 (units unknown) (unknown) (unknown) (no date) (unknown) (unknown) Alkaline Phosphatase 151 H (units unknown) (unknown) (unknown) (no date) (unknown) (unknown) All 12 point systems reviewed with the patient and are negative except otherwise (units unknown) (unknown) (unknown) (no date) (unknown) (unknown) Allergies (units unknown) (unknown) (unknown) (no date) (unknown) (unknown) Allergy/AdvReac Type Severity Reaction Status Date / Time (units unknown) (unknown) (unknown) (no date) (unknown) (unknown) Alzheimer dementia (units unknown) (unknown) (unknown) (no date) (unknown) (unknown) Alzheimer's dementia (units unknown) (unknown) (unknown) (no date) (unknown) (unknown) Alzheimer's dementia, chronic, present on admission (units unknown) (unknown) (unknown) (no date) (unknown) (unknown) Anxiety (units unknown) (unknown) (unknown) (no date) (unknown) (unknown) Assessment + Plan narrative: (units unknown) (unknown) (unknown) (no date) (unknown) (unknown) Assessment + Plan (units unknown) (unknown) (unknown) (no date) (unknown) (unknown) BUN 16 (units unknown) (unknown) (unknown) (no date) (unknown) (unknown) BUN/Creatinine Ratio 16.5 (units unknown) (unknown) (unknown) (no date) (unknown) (unknown) Baso # (Auto) 0 (units unknown) (unknown) (unknown) (no date) (unknown) (unknown) Baso % (Auto) 0.3 (units unknown) (unknown) (unknown) (no date) (unknown) (unknown) Blood Pressure 131/73 107/56 L (units unknown) (unknown) (unknown) (no date) (unknown) (unknown) Calcium 8.8 (units unknown) (unknown) (unknown) (no date) (unknown) (unknown) Carbon Dioxide 28 (units unknown) (unknown) (unknown) (no date) (unknown) (unknown) Cardio: regular rate and rhythm without murmur, rubs, or gallops, no carotid (units unknown) (unknown) (unknown) (no date) (unknown) (unknown) Chest pain (units unknown) (unknown) (unknown) (no date) (unknown) (unknown) Chest: Normal AP diameter and contour without kyphoscoliosis, Equal chest rise (units unknown) (unknown) (unknown) (no date) (unknown) (unknown) Chief complaint: Left femoral neck fracture (units unknown) (unknown) (unknown) (no date) (unknown) (unknown) Chloride 104 (units unknown) (unknown) (unknown) (no date) (unknown) (unknown) Creatinine 0.97 (units unknown) (unknown) (unknown) (no date) (unknown) (unknown) : 1945 Acct:[id number] (units unknown) (unknown) (unknown) (no date) (unknown) (unknown) Date Patient Seen: 02/08/23 (units unknown) (unknown) (unknown) (no date) (unknown) (unknown) Date of Service: 02/08/23 (units unknown) (unknown) (unknown) (no date) (unknown) (unknown) Depression (units unknown) (unknown) (unknown) (no date) (unknown) (unknown) Easy bruisability (units unknown) (unknown) (unknown) (no date) (unknown) (unknown) Eos # (Auto) 100 (units unknown) (unknown) (unknown) (no date) (unknown) (unknown) Eos % (Auto) 1.1 L (units unknown) (unknown) (unknown) (no date) (unknown) (unknown) Epilepsy (units unknown) (unknown) (unknown) (no date) (unknown) (unknown) Estimated GFR > 60 (units unknown) (unknown) (unknown) (no date) (unknown) (unknown) Exam Narrative: (units unknown) (unknown) (unknown) (no date) (unknown) (unknown) Exam (units unknown) (unknown) (unknown) (no date) (unknown) (unknown) Fall from bed, resulting in pathologic left femoral neck fracture, acute, (units unknown) (unknown) (unknown) (no date) (unknown) (unknown) GERD (units unknown) (unknown) (unknown) (no date) (unknown) (unknown) GERD, HTN who resides at a facility on [facility], was brought into the ED (units unknown) (unknown) (unknown) (no date) (unknown) (unknown) General: Patient is a elderly gentleman, symptoms of Alzheimer's dementia who (units unknown) (unknown) (unknown) (no date) (unknown) (unknown) Globulin 3.3 (units unknown) (unknown) (unknown) (no date) (unknown) (unknown) Glucose 103 (units unknown) (unknown) (unknown) (no date) (unknown) (unknown) HEENT: Normocephalic, atraumatic, extraocular muscles intact, oral pharynx is (units unknown) (unknown) (unknown) (no date) (unknown) (unknown) Hct 32.3 L (units unknown) (unknown) (unknown) (no date) (unknown) (unknown) Heart burn (units unknown) (unknown) (unknown) (no date) (unknown) (unknown) Hgb 11.1 L (units unknown) (unknown) (unknown) (no date) (unknown) (unknown) History + Physical Report (units unknown) (unknown) (unknown) (no date) (unknown) (unknown) History of Present Illness (units unknown) (unknown) (unknown) (no date) (unknown) (unknown) Home Medications and Allergies (units unknown) (unknown) (unknown) (no date) (unknown) (unknown) Home Medications (units unknown) (unknown) (unknown) (no date) (unknown) (unknown) Hyperlipidemia, chronic, present on admission (units unknown) (unknown) (unknown) (no date) (unknown) (unknown) Hypertension, essential, chronic, present on admission (units unknown) (unknown) (unknown) (no date) (unknown) (unknown) [address] [address] (units unknown) (unknown) (unknown) (no date) (unknown) (unknown) Laboratory Results - last 24 hr (units unknown) (unknown) (unknown) (no date) (unknown) (unknown) Labs (units unknown) (unknown) (unknown) (no date) (unknown) (unknown) Labs: (units unknown) (unknown) (unknown) (no date) (unknown) (unknown) Donna Garcia is a 77-year-old male with a past medical history of seizure (units unknown) (unknown) (unknown) (no date) (unknown) (unknown) Lungs: Auscultation of all lung arce are clear without adventitious sounds, (units unknown) (unknown) (unknown) (no date) (unknown) (unknown) Lymph # (Auto) 1600 (units unknown) (unknown) (unknown) (no date) (unknown) (unknown) Lymph % (Auto) 23.4 L (units unknown) (unknown) (unknown) (no date) (unknown) (unknown) MCH 33.7 (units unknown) (unknown) (unknown) (no date) (unknown) (unknown) MCHC 34.2 (units unknown) (unknown) (unknown) (no date) (unknown) (unknown) MCV 98.5 (units unknown) (unknown) (unknown) (no date) (unknown) (unknown) Medical History (units unknown) (unknown) (unknown) (no date) (unknown) (unknown) Medication Instructions Recorded Confirmed Type (units unknown) (unknown) (unknown) (no date) (unknown) (unknown) Meds (units unknown) (unknown) (unknown) (no date) (unknown) (unknown) Aurora # (Auto) 500 (units unknown) (unknown) (unknown) (no date) (unknown) (unknown) Aurora % (Auto) 7.6 (units unknown) (unknown) (unknown) (no date) (unknown) (unknown) Musculoskeletal: Extremities no effusions, cyanosis, clubbing or edema present. (units unknown) (unknown) (unknown) (no date) (unknown) (unknown) Narrative (units unknown) (unknown) (unknown) (no date) (unknown) (unknown) Narrative: (units unknown) (unknown) (unknown) (no date) (unknown) (unknown) Neck pain (units unknown) (unknown) (unknown) (no date) (unknown) (unknown) Negative for JVD (units unknown) (unknown) (unknown) (no date) (unknown) (unknown) Neuro: Alert and orientated moves all extremities, sensation to touch intact, (units unknown) (unknown) (unknown) (no date) (unknown) (unknown) Neut # (Auto) 4500 (units unknown) (unknown) (unknown) (no date) (unknown) (unknown) Neut % (Auto) 67.6 (units unknown) (unknown) (unknown) (no date) (unknown) (unknown) No Known Drug Allergies Allergy Verified 11/12/20 08:34 (units unknown) (unknown) (unknown) (no date) (unknown) (unknown) No history of previous surgery (units unknown) (unknown) (unknown) (no date) (unknown) (unknown) Numbness and tingling (units unknown) (unknown) (unknown) (no date) (unknown) (unknown) Objective (units unknown) (unknown) (unknown) (no date) (unknown) (unknown) Osteoarthritis (units unknown) (unknown) (unknown) (no date) (unknown) (unknown) Osteoarthritis, chronic, present on admission (units unknown) (unknown) (unknown) (no date) (unknown) (unknown) Oxygen Delivery Method Room Air Room Air (units unknown) (unknown) (unknown) (no date) (unknown) (unknown) Oxygen Delivery Method Room Air (units unknown) (unknown) (unknown) (no date) (unknown) (unknown) PFSH (units unknown) (unknown) (unknown) (no date) (unknown) (unknown) Pain (units unknown) (unknown) (unknown) (no date) (unknown) (unknown) Patient: Donna Garcia MR#: [id number] (units unknown) (unknown) (unknown) (no date) (unknown) (unknown) Plt Count 196 (units unknown) (unknown) (unknown) (no date) (unknown) (unknown) Potassium 3.9 (units unknown) (unknown) (unknown) (no date) (unknown) (unknown) Provider: Edita Galindo-FRED (units unknown) (unknown) (unknown) (no date) (unknown) (unknown) Psych: Patient . (units unknown) (unknown) (unknown) (no date) (unknown) (unknown) Pulse Oximetry 96 93 (units unknown) (unknown) (unknown) (no date) (unknown) (unknown) Pulse Rate 70 66 (units unknown) (unknown) (unknown) (no date) (unknown) (unknown) RBBB (right bundle branch block) (units unknown) (unknown) (unknown) (no date) (unknown) (unknown) RBC 3.28 L (units unknown) (unknown) (unknown) (no date) (unknown) (unknown) RDW 16.6 H (units unknown) (unknown) (unknown) (no date) (unknown) (unknown) Respiratory Rate 16 18 (units unknown) (unknown) (unknown) (no date) (unknown) (unknown) Review of Systems (units unknown) (unknown) (unknown) (no date) (unknown) (unknown) Seizure disorder, chronic, present on admission (units unknown) (unknown) (unknown) (no date) (unknown) (unknown) Seizures (units unknown) (unknown) (unknown) (no date) (unknown) (unknown) Signed By: (units unknown) (unknown) (unknown) (no date) (unknown) (unknown) Skin: Warm dry and intact without rashes, ulcerations or petechiae. (units unknown) (unknown) (unknown) (no date) (unknown) (unknown) Smoking Status: Current every day smoker (units unknown) (unknown) (unknown) (no date) (unknown) (unknown) Social History (units unknown) (unknown) (unknown) (no date) (unknown) (unknown) Sodium 137 (units unknown) (unknown) (unknown) (no date) (unknown) (unknown) Surgical History (units unknown) (unknown) (unknown) (no date) (unknown) (unknown) TIA (transient ischemic attack) (units unknown) (unknown) (unknown) (no date) (unknown) (unknown) Temperature 98.6 F (units unknown) (unknown) (unknown) (no date) (unknown) (unknown) Time Patient Seen: 03:03 (units unknown) (unknown) (unknown) (no date) (unknown) (unknown) Total Bilirubin 0.3 (units unknown) (unknown) (unknown) (no date) (unknown) (unknown) Total Protein 7.2 (units unknown) (unknown) (unknown) (no date) (unknown) (unknown) Troponin I < 0.012 (units unknown) (unknown) (unknown) (no date) (unknown) (unknown) Vital Signs (units unknown) (unknown) (unknown) (no date) (unknown) (unknown) Vitals temp 98.6?, 107/56, 66, 18, 93% on room air. Laboratory workups are (units unknown) (unknown) (unknown) (no date) (unknown) (unknown) WBC 6.6 (units unknown) (unknown) (unknown) (no date) (unknown) (unknown) [Embedded Image Not Available] (units unknown) (unknown) (unknown) (no date) (unknown) (unknown) a question as to whether the patient had hit his head or had a LOC, head CT was (units unknown) (unknown) (unknown) (no date) (unknown) (unknown) acetaminophen 500 mg tablet 1,000 mg PO TID 02/08/23 02/08/23 History (units unknown) (unknown) (unknown) (no date) (unknown) (unknown) after rolling out of bed landing on the floor fracturing left femur. There was (units unknown) (unknown) (unknown) (no date) (unknown) (unknown) after rolling out of bed landing on the floor fracturing left femur. (units unknown) (unknown) (unknown) (no date) (unknown) (unknown) alcohol intake: current (units unknown) (unknown) (unknown) (no date) (unknown) (unknown) appears older than stated age, in no distress at this time. (units unknown) (unknown) (unknown) (no date) (unknown) (unknown) are present in all 4 quadrants without guarding or rebound, no CVA tenderness. (units unknown) (unknown) (unknown) (no date) (unknown) (unknown) aspirin 81 mg tablet,delayed 81 mg PO DAILY 02/08/23 02/08/23 History (units unknown) (unknown) (unknown) (no date) (unknown) (unknown) at this time. (units unknown) (unknown) (unknown) (no date) (unknown) (unknown) atorvastatin 20 mg tablet 20 mg PO BEDTIME 02/08/23 02/08/23 History (units unknown) (unknown) (unknown) (no date) (unknown) (unknown) bruit, no cardiac pulsations present. (units unknown) (unknown) (unknown) (no date) (unknown) (unknown) cholecalciferol (vitamin D3) 25 1,000 unit PO DAILY 02/08/23 02/08/23 History (units unknown) (unknown) (unknown) (no date) (unknown) (unknown) clear and mucous membranes are moist. Neck is supple and symmetric, trachea is (units unknown) (unknown) (unknown) (no date) (unknown) (unknown) demonstrated acute fracture of left femoral neck. EKG I personally reviewed (units unknown) (unknown) (unknown) (no date) (unknown) (unknown) diclofenac sodium 1 % topical gel 4 g topical QID 02/08/23 02/08/23 History (units unknown) (unknown) (unknown) (no date) (unknown) (unknown) disorder, history of TIA, RTBBB Alzheimer's dementia, HDL, iron-deficiency, (units unknown) (unknown) (unknown) (no date) (unknown) (unknown) documented. Please note accuracy of ROS is impaired due to the patient's (units unknown) (unknown) (unknown) (no date) (unknown) (unknown) ferrous sulfate 325 mg (65 mg 325 mg PO DAILY 02/08/23 02/08/23 History (units unknown) (unknown) (unknown) (no date) (unknown) (unknown) gabapentin 300 mg capsule 300 mg PO DAILY 02/08/23 02/08/23 History (units unknown) (unknown) (unknown) (no date) (unknown) (unknown) gabapentin 300 mg capsule 600 mg PO BID 02/08/23 02/08/23 History (units unknown) (unknown) (unknown) (no date) (unknown) (unknown) hip pain, denies chest pain, shortness at breath, any other pain or discomfort (units unknown) (unknown) (unknown) (no date) (unknown) (unknown) household members: family (units unknown) (unknown) (unknown) (no date) (unknown) (unknown) intact radial and pedal pulses are normal. Left leg externally rotated at the (units unknown) (unknown) (unknown) (no date) (unknown) (unknown) iron) tablet,delayed release (units unknown) (unknown) (unknown) (no date) (unknown) (unknown) knee for 45? for patient comfort (units unknown) (unknown) (unknown) (no date) (unknown) (unknown) levetiracetam 750 mg tablet 750 mg PO BID 10/20/19 02/08/23 History (units unknown) (unknown) (unknown) (no date) (unknown) (unknown) mcg (1,000 unit) tablet (units unknown) (unknown) (unknown) (no date) (unknown) (unknown) melatonin 3 mg tablet 6 mg PO BEDTIME 02/08/23 02/08/23 History (units unknown) (unknown) (unknown) (no date) (unknown) (unknown) metoprolol tartrate 25 mg tablet 12.5 mg PO BID 10/20/19 02/08/23 History (units unknown) (unknown) (unknown) (no date) (unknown) (unknown) midline, no adenopathy, no thyroid enlargement, nontender, no masses palpated. (units unknown) (unknown) (unknown) (no date) (unknown) (unknown) negative for any acute changes in ED. unable to obtain accurate HPI, ROS, med (units unknown) (unknown) (unknown) (no date) (unknown) (unknown) no gross deficits noted of cranial nerves. (units unknown) (unknown) (unknown) (no date) (unknown) (unknown) normal, head CT, C-spine, chest x-ray are all without acute changes. Hip x-ray (units unknown) (unknown) (unknown) (no date) (unknown) (unknown) omeprazole 20 mg capsule,delayed 20 mg PO DAILY 02/08/23 02/08/23 History (units unknown) (unknown) (unknown) (no date) (unknown) (unknown) oral powder packet (Miralax) (units unknown) (unknown) (unknown) (no date) (unknown) (unknown) polyethylene glycol 3350 17 gram 17 g PO BID 02/08/23 02/08/23 History (units unknown) (unknown) (unknown) (no date) (unknown) (unknown) prazosin 1 mg capsule 1 mg PO BEDTIME 02/08/23 02/08/23 History (units unknown) (unknown) (unknown) (no date) (unknown) (unknown) present on admission (units unknown) (unknown) (unknown) (no date) (unknown) (unknown) reconciliation due to patient's Alzheimer dementia. Patient complains of left (units unknown) (unknown) (unknown) (no date) (unknown) (unknown) release (units unknown) (unknown) (unknown) (no date) (unknown) (unknown) sennosides 8.6 mg tablet (senna) 8.6 mg PO BID 02/08/23 02/08/23 History (units unknown) (unknown) (unknown) (no date) (unknown) (unknown) sertraline 100 mg tablet 100 mg PO BEDTIME 02/08/23 02/08/23 History (units unknown) (unknown) (unknown) (no date) (unknown) (unknown) sinus rhythm of 66 with an incomplete RBBB without ST or T-wave changes. (units unknown) (unknown) (unknown) (no date) (unknown) (unknown) unremarkable with the exception of HGB 11/HCT 32, alk-phos 151, troponin is (units unknown) (unknown) (unknown) (no date) (unknown) (unknown) wheezes, rhonchi, or rales. (units unknown) (unknown) (unknown) (no date) (unknown) (unknown) without nasal flaring, retractions, tachypneic or labored breathing. (units unknown) (unknown) Result panel 126 (unknown) (no date) (unknown) (unknown) (no value) (units unknown) (unknown) (unknown) (no date) (unknown) (unknown) (Arthritis Pain (diclofenac)) (units unknown) (unknown) (unknown) (no date) (unknown) (unknown) (past 8 hours): (units unknown) (unknown) (unknown) (no date) (unknown) (unknown) * Continue Keppra (units unknown) (unknown) (unknown) (no date) (unknown) (unknown) * Continue gabapentin (units unknown) (unknown) (unknown) (no date) (unknown) (unknown) * Continue sertraline, prazosin (units unknown) (unknown) (unknown) (no date) (unknown) (unknown) * D5 NS at 80 cc/HR, BS q.6 while NPO (units unknown) (unknown) (unknown) (no date) (unknown) (unknown) * Dr. Moore to consult and will take the patient to the OR later today (units unknown) (unknown) (unknown) (no date) (unknown) (unknown) * Fall precautions (units unknown) (unknown) (unknown) (no date) (unknown) (unknown) * Jaimes placement, I+O (units unknown) (unknown) (unknown) (no date) (unknown) (unknown) * H+H (units unknown) (unknown) (unknown) (no date) (unknown) (unknown) * Hold Lipitor until after surgery (units unknown) (unknown) (unknown) (no date) (unknown) (unknown) * Hold ferrous sulfate till after surgery (units unknown) (unknown) (unknown) (no date) (unknown) (unknown) * Hold metoprolol as BP is soft at this time 107/56 (units unknown) (unknown) (unknown) (no date) (unknown) (unknown) * Hold omeprazole till after surgery (units unknown) (unknown) (unknown) (no date) (unknown) (unknown) * Limit patient's stimulation + agitation as much as possible (units unknown) (unknown) (unknown) (no date) (unknown) (unknown) * NPO with the exception of sips with meds (units unknown) (unknown) (unknown) (no date) (unknown) (unknown) * Pain and antiemetic management, ice for comfort, lidocaine patches, Voltaren (units unknown) (unknown) (unknown) (no date) (unknown) (unknown) * Seizure precautions (units unknown) (unknown) (unknown) (no date) (unknown) (unknown) * UA ordered, trend CBC, BMP (units unknown) (unknown) (unknown) (no date) (unknown) (unknown) 01:05 01:05 (units unknown) (unknown) (unknown) (no date) (unknown) (unknown) 02:52 02/08/23 (units unknown) (unknown) (unknown) (no date) (unknown) (unknown) 02:53 (units unknown) (unknown) (unknown) (no date) (unknown) (unknown) 02/07/23 (units unknown) (unknown) (unknown) (no date) (unknown) (unknown) 02/08/23 01:05 (units unknown) (unknown) (unknown) (no date) (unknown) (unknown) 02/08/23 02/08/23 (units unknown) (unknown) (unknown) (no date) (unknown) (unknown) 23:26 02/08/23 (units unknown) (unknown) (unknown) (no date) (unknown) (unknown) [id number] (units unknown) (unknown) (unknown) (no date) (unknown) (unknown) ALT 41 (units unknown) (unknown) (unknown) (no date) (unknown) (unknown) AST 36 (units unknown) (unknown) (unknown) (no date) (unknown) (unknown) Abdomen: Soft nontender, negative for organomegaly, or masses. Bowel sounds (units unknown) (unknown) (unknown) (no date) (unknown) (unknown) Age/Sex: 77 / M (units unknown) (unknown) (unknown) (no date) (unknown) (unknown) Albumin 3.9 (units unknown) (unknown) (unknown) (no date) (unknown) (unknown) Albumin/Globulin Ratio 1.2 (units unknown) (unknown) (unknown) (no date) (unknown) (unknown) Alkaline Phosphatase 151 H (units unknown) (unknown) (unknown) (no date) (unknown) (unknown) All 12 point systems reviewed with the patient and are negative except otherwise (units unknown) (unknown) (unknown) (no date) (unknown) (unknown) Allergies (units unknown) (unknown) (unknown) (no date) (unknown) (unknown) Allergy/AdvReac Type Severity Reaction Status Date / Time (units unknown) (unknown) (unknown) (no date) (unknown) (unknown) Alzheimer dementia (units unknown) (unknown) (unknown) (no date) (unknown) (unknown) Alzheimer's dementia (units unknown) (unknown) (unknown) (no date) (unknown) (unknown) Alzheimer's dementia, chronic, present on admission (units unknown) (unknown) (unknown) (no date) (unknown) (unknown) Anxiety (units unknown) (unknown) (unknown) (no date) (unknown) (unknown) Assessment + Plan narrative: (units unknown) (unknown) (unknown) (no date) (unknown) (unknown) Assessment + Plan (units unknown) (unknown) (unknown) (no date) (unknown) (unknown) BUN 16 (units unknown) (unknown) (unknown) (no date) (unknown) (unknown) BUN/Creatinine Ratio 16.5 (units unknown) (unknown) (unknown) (no date) (unknown) (unknown) Baso # (Auto) 0 (units unknown) (unknown) (unknown) (no date) (unknown) (unknown) Baso % (Auto) 0.3 (units unknown) (unknown) (unknown) (no date) (unknown) (unknown) Blood Pressure 131/73 107/56 L (units unknown) (unknown) (unknown) (no date) (unknown) (unknown) Calcium 8.8 (units unknown) (unknown) (unknown) (no date) (unknown) (unknown) Carbon Dioxide 28 (units unknown) (unknown) (unknown) (no date) (unknown) (unknown) Cardio: regular rate and rhythm without murmur, rubs, or gallops, no carotid (units unknown) (unknown) (unknown) (no date) (unknown) (unknown) Chest pain (units unknown) (unknown) (unknown) (no date) (unknown) (unknown) Chest: Normal AP diameter and contour without kyphoscoliosis, Equal chest rise (units unknown) (unknown) (unknown) (no date) (unknown) (unknown) Chief complaint: Left femoral neck fracture (units unknown) (unknown) (unknown) (no date) (unknown) (unknown) Chloride 104 (units unknown) (unknown) (unknown) (no date) (unknown) (unknown) Code status: (units unknown) (unknown) (unknown) (no date) (unknown) (unknown) Creatinine 0.97 (units unknown) (unknown) (unknown) (no date) (unknown) (unknown) : 1945 Acct:[id number] (units unknown) (unknown) (unknown) (no date) (unknown) (unknown) DVT/VTE prophylaxis: (units unknown) (unknown) (unknown) (no date) (unknown) (unknown) Date Patient Seen: 02/08/23 (units unknown) (unknown) (unknown) (no date) (unknown) (unknown) Date of Service: 02/08/23 (units unknown) (unknown) (unknown) (no date) (unknown) (unknown) Depression (units unknown) (unknown) (unknown) (no date) (unknown) (unknown) Disposition: (units unknown) (unknown) (unknown) (no date) (unknown) (unknown) Easy bruisability (units unknown) (unknown) (unknown) (no date) (unknown) (unknown) Eos # (Auto) 100 (units unknown) (unknown) (unknown) (no date) (unknown) (unknown) Eos % (Auto) 1.1 L (units unknown) (unknown) (unknown) (no date) (unknown) (unknown) Epilepsy (units unknown) (unknown) (unknown) (no date) (unknown) (unknown) Estimated GFR > 60 (units unknown) (unknown) (unknown) (no date) (unknown) (unknown) Exam Narrative: (units unknown) (unknown) (unknown) (no date) (unknown) (unknown) Exam (units unknown) (unknown) (unknown) (no date) (unknown) (unknown) Exception-the patient is not eligible for medication reconciliation; the patient (units unknown) (unknown) (unknown) (no date) (unknown) (unknown) Fall from bed, resulting in pathologic left femoral neck fracture, acute, (units unknown) (unknown) (unknown) (no date) (unknown) (unknown) GERD, HTN who resides at a facility on [facility], was brought into the ED (units unknown) (unknown) (unknown) (no date) (unknown) (unknown) GERD, chronic, present on admission (units unknown) (unknown) (unknown) (no date) (unknown) (unknown) General: Patient is a elderly gentleman, symptoms of Alzheimer's dementia who (units unknown) (unknown) (unknown) (no date) (unknown) (unknown) Globulin 3.3 (units unknown) (unknown) (unknown) (no date) (unknown) (unknown) Glucose 103 (units unknown) (unknown) (unknown) (no date) (unknown) (unknown) HEENT: Normocephalic, atraumatic, extraocular muscles intact, oral pharynx is (units unknown) (unknown) (unknown) (no date) (unknown) (unknown) Hct 32.3 L (units unknown) (unknown) (unknown) (no date) (unknown) (unknown) Heart burn (units unknown) (unknown) (unknown) (no date) (unknown) (unknown) Hgb 11.1 L (units unknown) (unknown) (unknown) (no date) (unknown) (unknown) History + Physical Report (units unknown) (unknown) (unknown) (no date) (unknown) (unknown) History of Present Illness (units unknown) (unknown) (unknown) (no date) (unknown) (unknown) Home Medications and Allergies (units unknown) (unknown) (unknown) (no date) (unknown) (unknown) Home Medications (units unknown) (unknown) (unknown) (no date) (unknown) (unknown) Hyperlipidemia, chronic, present on admission (units unknown) (unknown) (unknown) (no date) (unknown) (unknown) Hypertension, essential, chronic, present on admission (units unknown) (unknown) (unknown) (no date) (unknown) (unknown) I confirmed that the patient's advanced care plan is present, Code status is (units unknown) (unknown) (unknown) (no date) (unknown) (unknown) I have personally reviewed patient's chart notes from PCP, specialists, (units unknown) (unknown) (unknown) (no date) (unknown) (unknown) I have utilized all available immediate resources to obtain, update, or review (units unknown) (unknown) (unknown) (no date) (unknown) (unknown) Iron-deficiency anemia, chronic, present on admission (units unknown) (unknown) (unknown) (no date) (unknown) (unknown) [address] [address] (units unknown) (unknown) (unknown) (no date) (unknown) (unknown) Laboratory Results - last 24 hr (units unknown) (unknown) (unknown) (no date) (unknown) (unknown) Labs (units unknown) (unknown) (unknown) (no date) (unknown) (unknown) Labs: (units unknown) (unknown) (unknown) (no date) (unknown) (unknown) Donna Garcia is a 77-year-old male with a past medical history of seizure (units unknown) (unknown) (unknown) (no date) (unknown) (unknown) Lungs: Auscultation of all lung arce are clear without adventitious sounds, (units unknown) (unknown) (unknown) (no date) (unknown) (unknown) Lymph # (Auto) 1600 (units unknown) (unknown) (unknown) (no date) (unknown) (unknown) Lymph % (Auto) 23.4 L (units unknown) (unknown) (unknown) (no date) (unknown) (unknown) MCH 33.7 (units unknown) (unknown) (unknown) (no date) (unknown) (unknown) MCHC 34.2 (units unknown) (unknown) (unknown) (no date) (unknown) (unknown) MCV 98.5 (units unknown) (unknown) (unknown) (no date) (unknown) (unknown) Medical History (units unknown) (unknown) (unknown) (no date) (unknown) (unknown) Medication Instructions Recorded Confirmed Type (units unknown) (unknown) (unknown) (no date) (unknown) (unknown) Meds (units unknown) (unknown) (unknown) (no date) (unknown) (unknown) Aurora # (Auto) 500 (units unknown) (unknown) (unknown) (no date) (unknown) (unknown) Aurora % (Auto) 7.6 (units unknown) (unknown) (unknown) (no date) (unknown) (unknown) Musculoskeletal: Extremities no effusions, cyanosis, clubbing or edema present. (units unknown) (unknown) (unknown) (no date) (unknown) (unknown) Narrative (units unknown) (unknown) (unknown) (no date) (unknown) (unknown) Narrative: (units unknown) (unknown) (unknown) (no date) (unknown) (unknown) Neck pain (units unknown) (unknown) (unknown) (no date) (unknown) (unknown) Negative for JVD (units unknown) (unknown) (unknown) (no date) (unknown) (unknown) Neuro: Alert and orientated moves all extremities, sensation to touch intact, (units unknown) (unknown) (unknown) (no date) (unknown) (unknown) Neut # (Auto) 4500 (units unknown) (unknown) (unknown) (no date) (unknown) (unknown) Neut % (Auto) 67.6 (units unknown) (unknown) (unknown) (no date) (unknown) (unknown) No Known Drug Allergies Allergy Verified 11/12/20 08:34 (units unknown) (unknown) (unknown) (no date) (unknown) (unknown) No history of previous surgery (units unknown) (unknown) (unknown) (no date) (unknown) (unknown) Numbness and tingling (units unknown) (unknown) (unknown) (no date) (unknown) (unknown) Objective (units unknown) (unknown) (unknown) (no date) (unknown) (unknown) Osteoarthritis (units unknown) (unknown) (unknown) (no date) (unknown) (unknown) Osteoarthritis, chronic, present on admission (units unknown) (unknown) (unknown) (no date) (unknown) (unknown) Oxygen Delivery Method Room Air Room Air (units unknown) (unknown) (unknown) (no date) (unknown) (unknown) Oxygen Delivery Method Room Air (units unknown) (unknown) (unknown) (no date) (unknown) (unknown) PFSH (units unknown) (unknown) (unknown) (no date) (unknown) (unknown) Pain (units unknown) (unknown) (unknown) (no date) (unknown) (unknown) Patient: Donna Garcia MR#: [id number] (units unknown) (unknown) (unknown) (no date) (unknown) (unknown) Plt Count 196 (units unknown) (unknown) (unknown) (no date) (unknown) (unknown) Potassium 3.9 (units unknown) (unknown) (unknown) (no date) (unknown) (unknown) Provider: Edita Galindo (units unknown) (unknown) (unknown) (no date) (unknown) (unknown) Psych: Patient . (units unknown) (unknown) (unknown) (no date) (unknown) (unknown) Pulse Oximetry 96 93 (units unknown) (unknown) (unknown) (no date) (unknown) (unknown) Pulse Rate 70 66 (units unknown) (unknown) (unknown) (no date) (unknown) (unknown) RBBB (right bundle branch block) (units unknown) (unknown) (unknown) (no date) (unknown) (unknown) RBC 3.28 L (units unknown) (unknown) (unknown) (no date) (unknown) (unknown) RDW 16.6 H (units unknown) (unknown) (unknown) (no date) (unknown) (unknown) Respiratory Rate 16 18 (units unknown) (unknown) (unknown) (no date) (unknown) (unknown) Review of Systems (units unknown) (unknown) (unknown) (no date) (unknown) (unknown) Seizure disorder, chronic, present on admission (units unknown) (unknown) (unknown) (no date) (unknown) (unknown) Seizures (units unknown) (unknown) (unknown) (no date) (unknown) (unknown) Signed By: (units unknown) (unknown) (unknown) (no date) (unknown) (unknown) Skin: Warm dry and intact without rashes, ulcerations or petechiae. (units unknown) (unknown) (unknown) (no date) (unknown) (unknown) Smoking Status: Current every day smoker (units unknown) (unknown) (unknown) (no date) (unknown) (unknown) Social History (units unknown) (unknown) (unknown) (no date) (unknown) (unknown) Sodium 137 (units unknown) (unknown) (unknown) (no date) (unknown) (unknown) Surgical History (units unknown) (unknown) (unknown) (no date) (unknown) (unknown) Surrogate decision maker: (units unknown) (unknown) (unknown) (no date) (unknown) (unknown) TIA (transient ischemic attack) (units unknown) (unknown) (unknown) (no date) (unknown) (unknown) Temperature 98.6 F (units unknown) (unknown) (unknown) (no date) (unknown) (unknown) Time Patient Seen: 03:03 (units unknown) (unknown) (unknown) (no date) (unknown) (unknown) Total Bilirubin 0.3 (units unknown) (unknown) (unknown) (no date) (unknown) (unknown) Total Protein 7.2 (units unknown) (unknown) (unknown) (no date) (unknown) (unknown) Troponin I < 0.012 (units unknown) (unknown) (unknown) (no date) (unknown) (unknown) Vital Signs (units unknown) (unknown) (unknown) (no date) (unknown) (unknown) Vitals temp 98.6?, 107/56, 66, 18, 93% on room air. Laboratory workups are (units unknown) (unknown) (unknown) (no date) (unknown) (unknown) WBC 6.6 (units unknown) (unknown) (unknown) (no date) (unknown) (unknown) [Embedded Image Not Available] (units unknown) (unknown) (unknown) (no date) (unknown) (unknown) a question as to whether the patient had hit his head or had a LOC, head CT was (units unknown) (unknown) (unknown) (no date) (unknown) (unknown) acetaminophen 500 mg tablet 1,000 mg PO TID 02/08/23 02/08/23 History (units unknown) (unknown) (unknown) (no date) (unknown) (unknown) after rolling out of bed landing on the floor fracturing left femur. There was (units unknown) (unknown) (unknown) (no date) (unknown) (unknown) after rolling out of bed landing on the floor fracturing left femur. (units unknown) (unknown) (unknown) (no date) (unknown) (unknown) alcohol intake: current (units unknown) (unknown) (unknown) (no date) (unknown) (unknown) appears older than stated age, in no distress at this time. (units unknown) (unknown) (unknown) (no date) (unknown) (unknown) are present in all 4 quadrants without guarding or rebound, no CVA tenderness. (units unknown) (unknown) (unknown) (no date) (unknown) (unknown) aspirin 81 mg tablet,delayed 81 mg PO DAILY 02/08/23 02/08/23 History (units unknown) (unknown) (unknown) (no date) (unknown) (unknown) at this time. (units unknown) (unknown) (unknown) (no date) (unknown) (unknown) atorvastatin 20 mg tablet 20 mg PO BEDTIME 02/08/23 02/08/23 History (units unknown) (unknown) (unknown) (no date) (unknown) (unknown) bruit, no cardiac pulsations present. (units unknown) (unknown) (unknown) (no date) (unknown) (unknown) cholecalciferol (vitamin D3) 25 1,000 unit PO DAILY 02/08/23 02/08/23 History (units unknown) (unknown) (unknown) (no date) (unknown) (unknown) clear and mucous membranes are moist. Neck is supple and symmetric, trachea is (units unknown) (unknown) (unknown) (no date) (unknown) (unknown) demonstrated acute fracture of left femoral neck. EKG I personally reviewed (units unknown) (unknown) (unknown) (no date) (unknown) (unknown) diagnostic imaging, and laboratory results. (units unknown) (unknown) (unknown) (no date) (unknown) (unknown) diclofenac sodium 1 % topical gel 4 g topical QID 02/08/23 02/08/23 History (units unknown) (unknown) (unknown) (no date) (unknown) (unknown) disorder, history of TIA, RTBBB Alzheimer's dementia, HDL, iron-deficiency, (units unknown) (unknown) (unknown) (no date) (unknown) (unknown) documented and/or surrogate decision maker is listed in the patient's medical (units unknown) (unknown) (unknown) (no date) (unknown) (unknown) documented. Please note accuracy of ROS is impaired due to the patient's (units unknown) (unknown) (unknown) (no date) (unknown) (unknown) ferrous sulfate 325 mg (65 mg 325 mg PO DAILY 02/08/23 02/08/23 History (units unknown) (unknown) (unknown) (no date) (unknown) (unknown) gabapentin 300 mg capsule 300 mg PO DAILY 02/08/23 02/08/23 History (units unknown) (unknown) (unknown) (no date) (unknown) (unknown) gabapentin 300 mg capsule 600 mg PO BID 02/08/23 02/08/23 History (units unknown) (unknown) (unknown) (no date) (unknown) (unknown) hip pain, denies chest pain, shortness at breath, any other pain or discomfort (units unknown) (unknown) (unknown) (no date) (unknown) (unknown) household members: family (units unknown) (unknown) (unknown) (no date) (unknown) (unknown) intact radial and pedal pulses are normal. Left leg externally rotated at the (units unknown) (unknown) (unknown) (no date) (unknown) (unknown) iron) tablet,delayed release (units unknown) (unknown) (unknown) (no date) (unknown) (unknown) is in an emergent medical situation were delaying treatment would jeopardize (units unknown) (unknown) (unknown) (no date) (unknown) (unknown) knee for 45? for patient comfort (units unknown) (unknown) (unknown) (no date) (unknown) (unknown) levetiracetam 750 mg tablet 750 mg PO BID 10/20/19 02/08/23 History (units unknown) (unknown) (unknown) (no date) (unknown) (unknown) mcg (1,000 unit) tablet (units unknown) (unknown) (unknown) (no date) (unknown) (unknown) melatonin 3 mg tablet 6 mg PO BEDTIME 02/08/23 02/08/23 History (units unknown) (unknown) (unknown) (no date) (unknown) (unknown) metoprolol tartrate 25 mg tablet 12.5 mg PO BID 10/20/19 02/08/23 History (units unknown) (unknown) (unknown) (no date) (unknown) (unknown) midline, no adenopathy, no thyroid enlargement, nontender, no masses palpated. (units unknown) (unknown) (unknown) (no date) (unknown) (unknown) negative for any acute changes in ED. unable to obtain accurate HPI, ROS, med (units unknown) (unknown) (unknown) (no date) (unknown) (unknown) no gross deficits noted of cranial nerves. (units unknown) (unknown) (unknown) (no date) (unknown) (unknown) normal, head CT, C-spine, chest x-ray are all without acute changes. Hip x-ray (units unknown) (unknown) (unknown) (no date) (unknown) (unknown) omeprazole 20 mg capsule,delayed 20 mg PO DAILY 02/08/23 02/08/23 History (units unknown) (unknown) (unknown) (no date) (unknown) (unknown) oral powder packet (Miralax) (units unknown) (unknown) (unknown) (no date) (unknown) (unknown) polyethylene glycol 3350 17 gram 17 g PO BID 02/08/23 02/08/23 History (units unknown) (unknown) (unknown) (no date) (unknown) (unknown) prazosin 1 mg capsule 1 mg PO BEDTIME 02/08/23 02/08/23 History (units unknown) (unknown) (unknown) (no date) (unknown) (unknown) present on admission (units unknown) (unknown) (unknown) (no date) (unknown) (unknown) reconciliation due to patient's Alzheimer dementia. Patient complains of left (units unknown) (unknown) (unknown) (no date) (unknown) (unknown) record. (units unknown) (unknown) (unknown) (no date) (unknown) (unknown) release (units unknown) (unknown) (unknown) (no date) (unknown) (unknown) sennosides 8.6 mg tablet (senna) 8.6 mg PO BID 02/08/23 02/08/23 History (units unknown) (unknown) (unknown) (no date) (unknown) (unknown) sertraline 100 mg tablet 100 mg PO BEDTIME 02/08/23 02/08/23 History (units unknown) (unknown) (unknown) (no date) (unknown) (unknown) sinus rhythm of 66 with an incomplete RBBB without ST or T-wave changes. (units unknown) (unknown) (unknown) (no date) (unknown) (unknown) the patient's current medications. (units unknown) (unknown) (unknown) (no date) (unknown) (unknown) the patient's health. (units unknown) (unknown) (unknown) (no date) (unknown) (unknown) unremarkable with the exception of HGB 11/HCT 32, alk-phos 151, troponin is (units unknown) (unknown) (unknown) (no date) (unknown) (unknown) wheezes, rhonchi, or rales. (units unknown) (unknown) (unknown) (no date) (unknown) (unknown) without nasal flaring, retractions, tachypneic or labored breathing. (units unknown) (unknown) Result panel 127 (unknown) (no date) (unknown) (unknown) (no value) (units unknown) (unknown) (unknown) (no date) (unknown) (unknown) (Arthritis Pain (diclofenac)) (units unknown) (unknown) (unknown) (no date) (unknown) (unknown) (past 8 hours): (units unknown) (unknown) (unknown) (no date) (unknown) (unknown) * Continue Keppra (units unknown) (unknown) (unknown) (no date) (unknown) (unknown) * Continue gabapentin (units unknown) (unknown) (unknown) (no date) (unknown) (unknown) * Continue sertraline, prazosin (units unknown) (unknown) (unknown) (no date) (unknown) (unknown) * D5 NS at 80 cc/HR, BS q.6 while NPO (units unknown) (unknown) (unknown) (no date) (unknown) (unknown) * Dr. Moore to consult and will take the patient to the OR later today (units unknown) (unknown) (unknown) (no date) (unknown) (unknown) * Fall precautions (units unknown) (unknown) (unknown) (no date) (unknown) (unknown) * Jaimes placement, I+O (units unknown) (unknown) (unknown) (no date) (unknown) (unknown) * H+H 11/32 (units unknown) (unknown) (unknown) (no date) (unknown) (unknown) * Hold Lipitor until after surgery (units unknown) (unknown) (unknown) (no date) (unknown) (unknown) * Hold ferrous sulfate till after surgery (units unknown) (unknown) (unknown) (no date) (unknown) (unknown) * Hold metoprolol as BP is soft at this time 107/56 (units unknown) (unknown) (unknown) (no date) (unknown) (unknown) * Hold omeprazole till after surgery (units unknown) (unknown) (unknown) (no date) (unknown) (unknown) * Limit patient's stimulation + agitation as much as possible (units unknown) (unknown) (unknown) (no date) (unknown) (unknown) * NPO with the exception of sips with meds (units unknown) (unknown) (unknown) (no date) (unknown) (unknown) * Pain and antiemetic management, ice for comfort, lidocaine patches, Voltaren (units unknown) (unknown) (unknown) (no date) (unknown) (unknown) * Seizure precautions (units unknown) (unknown) (unknown) (no date) (unknown) (unknown) * UA ordered, trend CBC, BMP (units unknown) (unknown) (unknown) (no date) (unknown) (unknown) 01:05 01:05 (units unknown) (unknown) (unknown) (no date) (unknown) (unknown) 02:52 02/08/23 (units unknown) (unknown) (unknown) (no date) (unknown) (unknown) 02:53 (units unknown) (unknown) (unknown) (no date) (unknown) (unknown) 02/07/23 (units unknown) (unknown) (unknown) (no date) (unknown) (unknown) 02/08/23 01:05 (units unknown) (unknown) (unknown) (no date) (unknown) (unknown) 02/08/23 02/08/23 (units unknown) (unknown) (unknown) (no date) (unknown) (unknown) 23:26 02/08/23 (units unknown) (unknown) (unknown) (no date) (unknown) (unknown) [id number] (units unknown) (unknown) (unknown) (no date) (unknown) (unknown) ALT 41 (units unknown) (unknown) (unknown) (no date) (unknown) (unknown) AST 36 (units unknown) (unknown) (unknown) (no date) (unknown) (unknown) Abdomen: Soft nontender, negative for organomegaly, or masses. Bowel sounds (units unknown) (unknown) (unknown) (no date) (unknown) (unknown) Age/Sex: 77 / M (units unknown) (unknown) (unknown) (no date) (unknown) (unknown) Albumin 3.9 (units unknown) (unknown) (unknown) (no date) (unknown) (unknown) Albumin/Globulin Ratio 1.2 (units unknown) (unknown) (unknown) (no date) (unknown) (unknown) Alkaline Phosphatase 151 H (units unknown) (unknown) (unknown) (no date) (unknown) (unknown) All 12 point systems reviewed with the patient and are negative except otherwise (units unknown) (unknown) (unknown) (no date) (unknown) (unknown) Allergies (units unknown) (unknown) (unknown) (no date) (unknown) (unknown) Allergy/AdvReac Type Severity Reaction Status Date / Time (units unknown) (unknown) (unknown) (no date) (unknown) (unknown) Alzheimer dementia (units unknown) (unknown) (unknown) (no date) (unknown) (unknown) Alzheimer's dementia (units unknown) (unknown) (unknown) (no date) (unknown) (unknown) Alzheimer's dementia, chronic, present on admission (units unknown) (unknown) (unknown) (no date) (unknown) (unknown) Anxiety (units unknown) (unknown) (unknown) (no date) (unknown) (unknown) Assessment + Plan narrative: (units unknown) (unknown) (unknown) (no date) (unknown) (unknown) Assessment + Plan (units unknown) (unknown) (unknown) (no date) (unknown) (unknown) BUN 16 (units unknown) (unknown) (unknown) (no date) (unknown) (unknown) BUN/Creatinine Ratio 16.5 (units unknown) (unknown) (unknown) (no date) (unknown) (unknown) Baso # (Auto) 0 (units unknown) (unknown) (unknown) (no date) (unknown) (unknown) Baso % (Auto) 0.3 (units unknown) (unknown) (unknown) (no date) (unknown) (unknown) Blood Pressure 131/73 107/56 L (units unknown) (unknown) (unknown) (no date) (unknown) (unknown) Calcium 8.8 (units unknown) (unknown) (unknown) (no date) (unknown) (unknown) Carbon Dioxide 28 (units unknown) (unknown) (unknown) (no date) (unknown) (unknown) Cardio: regular rate and rhythm without murmur, rubs, or gallops, no carotid (units unknown) (unknown) (unknown) (no date) (unknown) (unknown) Chest pain (units unknown) (unknown) (unknown) (no date) (unknown) (unknown) Chest: Normal AP diameter and contour without kyphoscoliosis, Equal chest rise (units unknown) (unknown) (unknown) (no date) (unknown) (unknown) Chief complaint: Left femoral neck fracture (units unknown) (unknown) (unknown) (no date) (unknown) (unknown) Chloride 104 (units unknown) (unknown) (unknown) (no date) (unknown) (unknown) Code status:Full unable to verify at this time (units unknown) (unknown) (unknown) (no date) (unknown) (unknown) Creatinine 0.97 (units unknown) (unknown) (unknown) (no date) (unknown) (unknown) : 1945 Acct:[id number] (units unknown) (unknown) (unknown) (no date) (unknown) (unknown) DVT/VTE prophylaxis: Holding medication due to surgery, right SCD only (units unknown) (unknown) (unknown) (no date) (unknown) (unknown) Date Patient Seen: 02/08/23 (units unknown) (unknown) (unknown) (no date) (unknown) (unknown) Date of Service: 02/08/23 (units unknown) (unknown) (unknown) (no date) (unknown) (unknown) Depression (units unknown) (unknown) (unknown) (no date) (unknown) (unknown) Disposition: Patient admitted to acute care for left femur fracture repair, (units unknown) (unknown) (unknown) (no date) (unknown) (unknown) Easy bruisability (units unknown) (unknown) (unknown) (no date) (unknown) (unknown) Eos # (Auto) 100 (units unknown) (unknown) (unknown) (no date) (unknown) (unknown) Eos % (Auto) 1.1 L (units unknown) (unknown) (unknown) (no date) (unknown) (unknown) Epilepsy (units unknown) (unknown) (unknown) (no date) (unknown) (unknown) Estimated GFR > 60 (units unknown) (unknown) (unknown) (no date) (unknown) (unknown) Exam Narrative: (units unknown) (unknown) (unknown) (no date) (unknown) (unknown) Exam (units unknown) (unknown) (unknown) (no date) (unknown) (unknown) Exception-the patient is not eligible for medication reconciliation; the patient (units unknown) (unknown) (unknown) (no date) (unknown) (unknown) Fall from bed, resulting in pathologic left femoral neck fracture, acute, (units unknown) (unknown) (unknown) (no date) (unknown) (unknown) GERD, HTN who resides at a facility on [facility], was brought into the ED (units unknown) (unknown) (unknown) (no date) (unknown) (unknown) GERD, chronic, present on admission (units unknown) (unknown) (unknown) (no date) (unknown) (unknown) General: Patient is a elderly gentleman, symptoms of Alzheimer's dementia who (units unknown) (unknown) (unknown) (no date) (unknown) (unknown) Globulin 3.3 (units unknown) (unknown) (unknown) (no date) (unknown) (unknown) Glucose 103 (units unknown) (unknown) (unknown) (no date) (unknown) (unknown) HEENT: Normocephalic, atraumatic, extraocular muscles intact, oral pharynx is (units unknown) (unknown) (unknown) (no date) (unknown) (unknown) Hct 32.3 L (units unknown) (unknown) (unknown) (no date) (unknown) (unknown) Heart burn (units unknown) (unknown) (unknown) (no date) (unknown) (unknown) Hgb 11.1 L (units unknown) (unknown) (unknown) (no date) (unknown) (unknown) History + Physical Report (units unknown) (unknown) (unknown) (no date) (unknown) (unknown) History of Present Illness (units unknown) (unknown) (unknown) (no date) (unknown) (unknown) Home Medications and Allergies (units unknown) (unknown) (unknown) (no date) (unknown) (unknown) Home Medications (units unknown) (unknown) (unknown) (no date) (unknown) (unknown) Hyperlipidemia, chronic, present on admission (units unknown) (unknown) (unknown) (no date) (unknown) (unknown) Hypertension, essential, chronic, present on admission (units unknown) (unknown) (unknown) (no date) (unknown) (unknown) I confirmed that the patient's advanced care plan is present, Code status is (units unknown) (unknown) (unknown) (no date) (unknown) (unknown) I have personally reviewed patient's chart notes from PCP, specialists, (units unknown) (unknown) (unknown) (no date) (unknown) (unknown) I have utilized all available immediate resources to obtain, update, or review (units unknown) (unknown) (unknown) (no date) (unknown) (unknown) Iron-deficiency anemia, chronic, present on admission (units unknown) (unknown) (unknown) (no date) (unknown) (unknown) [address] [address] (units unknown) (unknown) (unknown) (no date) (unknown) (unknown) Laboratory Results - last 24 hr (units unknown) (unknown) (unknown) (no date) (unknown) (unknown) Labs (units unknown) (unknown) (unknown) (no date) (unknown) (unknown) Labs: (units unknown) (unknown) (unknown) (no date) (unknown) (unknown) Donna Garcia is a 77-year-old male with a past medical history of seizure (units unknown) (unknown) (unknown) (no date) (unknown) (unknown) Lungs: Auscultation of all lung arce are clear without adventitious sounds, (units unknown) (unknown) (unknown) (no date) (unknown) (unknown) Lymph # (Auto) 1600 (units unknown) (unknown) (unknown) (no date) (unknown) (unknown) Lymph % (Auto) 23.4 L (units unknown) (unknown) (unknown) (no date) (unknown) (unknown) MCH 33.7 (units unknown) (unknown) (unknown) (no date) (unknown) (unknown) MCHC 34.2 (units unknown) (unknown) (unknown) (no date) (unknown) (unknown) MCV 98.5 (units unknown) (unknown) (unknown) (no date) (unknown) (unknown) Medical History (units unknown) (unknown) (unknown) (no date) (unknown) (unknown) Medication Instructions Recorded Confirmed Type (units unknown) (unknown) (unknown) (no date) (unknown) (unknown) Meds (units unknown) (unknown) (unknown) (no date) (unknown) (unknown) Aurora # (Auto) 500 (units unknown) (unknown) (unknown) (no date) (unknown) (unknown) Aurora % (Auto) 7.6 (units unknown) (unknown) (unknown) (no date) (unknown) (unknown) Musculoskeletal: Extremities no effusions, cyanosis, clubbing or edema present. (units unknown) (unknown) (unknown) (no date) (unknown) (unknown) Narrative (units unknown) (unknown) (unknown) (no date) (unknown) (unknown) Narrative: (units unknown) (unknown) (unknown) (no date) (unknown) (unknown) Neck pain (units unknown) (unknown) (unknown) (no date) (unknown) (unknown) Negative for JVD (units unknown) (unknown) (unknown) (no date) (unknown) (unknown) Neuro: Alert and orientated moves all extremities, sensation to touch intact, (units unknown) (unknown) (unknown) (no date) (unknown) (unknown) Neut # (Auto) 4500 (units unknown) (unknown) (unknown) (no date) (unknown) (unknown) Neut % (Auto) 67.6 (units unknown) (unknown) (unknown) (no date) (unknown) (unknown) No Known Drug Allergies Allergy Verified 11/12/20 08:34 (units unknown) (unknown) (unknown) (no date) (unknown) (unknown) No history of previous surgery (units unknown) (unknown) (unknown) (no date) (unknown) (unknown) Numbness and tingling (units unknown) (unknown) (unknown) (no date) (unknown) (unknown) Objective (units unknown) (unknown) (unknown) (no date) (unknown) (unknown) Osteoarthritis (units unknown) (unknown) (unknown) (no date) (unknown) (unknown) Osteoarthritis, chronic, present on admission (units unknown) (unknown) (unknown) (no date) (unknown) (unknown) Oxygen Delivery Method Room Air Room Air (units unknown) (unknown) (unknown) (no date) (unknown) (unknown) Oxygen Delivery Method Room Air (units unknown) (unknown) (unknown) (no date) (unknown) (unknown) PFSH (units unknown) (unknown) (unknown) (no date) (unknown) (unknown) Pain (units unknown) (unknown) (unknown) (no date) (unknown) (unknown) Patient: Donna Garcia MR#: [id number] (units unknown) (unknown) (unknown) (no date) (unknown) (unknown) Plt Count 196 (units unknown) (unknown) (unknown) (no date) (unknown) (unknown) Potassium 3.9 (units unknown) (unknown) (unknown) (no date) (unknown) (unknown) Provider: Edita Galindo (units unknown) (unknown) (unknown) (no date) (unknown) (unknown) Psych: Patient . (units unknown) (unknown) (unknown) (no date) (unknown) (unknown) Pulse Oximetry 96 93 (units unknown) (unknown) (unknown) (no date) (unknown) (unknown) Pulse Rate 70 66 (units unknown) (unknown) (unknown) (no date) (unknown) (unknown) RBBB (right bundle branch block) (units unknown) (unknown) (unknown) (no date) (unknown) (unknown) RBC 3.28 L (units unknown) (unknown) (unknown) (no date) (unknown) (unknown) RDW 16.6 H (units unknown) (unknown) (unknown) (no date) (unknown) (unknown) Respiratory Rate 16 18 (units unknown) (unknown) (unknown) (no date) (unknown) (unknown) Review of Systems (units unknown) (unknown) (unknown) (no date) (unknown) (unknown) Seizure disorder, chronic, present on admission (units unknown) (unknown) (unknown) (no date) (unknown) (unknown) Seizures (units unknown) (unknown) (unknown) (no date) (unknown) (unknown) Signed By: (units unknown) (unknown) (unknown) (no date) (unknown) (unknown) Skin: Warm dry and intact without rashes, ulcerations or petechiae. (units unknown) (unknown) (unknown) (no date) (unknown) (unknown) Smoking Status: Current every day smoker (units unknown) (unknown) (unknown) (no date) (unknown) (unknown) Social History (units unknown) (unknown) (unknown) (no date) (unknown) (unknown) Sodium 137 (units unknown) (unknown) (unknown) (no date) (unknown) (unknown) Surgical History (units unknown) (unknown) (unknown) (no date) (unknown) (unknown) Surrogate decision maker: Sister Vladimir leon (units unknown) (unknown) (unknown) (no date) (unknown) (unknown) TIA (transient ischemic attack) (units unknown) (unknown) (unknown) (no date) (unknown) (unknown) Temperature 98.6 F (units unknown) (unknown) (unknown) (no date) (unknown) (unknown) Time Patient Seen: 03:03 (units unknown) (unknown) (unknown) (no date) (unknown) (unknown) Total Bilirubin 0.3 (units unknown) (unknown) (unknown) (no date) (unknown) (unknown) Total Protein 7.2 (units unknown) (unknown) (unknown) (no date) (unknown) (unknown) Troponin I < 0.012 (units unknown) (unknown) (unknown) (no date) (unknown) (unknown) Vital Signs (units unknown) (unknown) (unknown) (no date) (unknown) (unknown) Vitals temp 98.6?, 107/56, 66, 18, 93% on room air. Laboratory workups are (units unknown) (unknown) (unknown) (no date) (unknown) (unknown) WBC 6.6 (units unknown) (unknown) (unknown) (no date) (unknown) (unknown) [Embedded Image Not Available] (units unknown) (unknown) (unknown) (no date) (unknown) (unknown) a question as to whether the patient had hit his head or had a LOC, head CT was (units unknown) (unknown) (unknown) (no date) (unknown) (unknown) acetaminophen 500 mg tablet 1,000 mg PO TID 02/08/23 02/08/23 History (units unknown) (unknown) (unknown) (no date) (unknown) (unknown) after rolling out of bed landing on the floor fracturing left femur. There was (units unknown) (unknown) (unknown) (no date) (unknown) (unknown) after rolling out of bed landing on the floor fracturing left femur. (units unknown) (unknown) (unknown) (no date) (unknown) (unknown) alcohol intake: current (units unknown) (unknown) (unknown) (no date) (unknown) (unknown) appears older than stated age, in no distress at this time. (units unknown) (unknown) (unknown) (no date) (unknown) (unknown) are present in all 4 quadrants without guarding or rebound, no CVA tenderness. (units unknown) (unknown) (unknown) (no date) (unknown) (unknown) aspirin 81 mg tablet,delayed 81 mg PO DAILY 02/08/23 02/08/23 History (units unknown) (unknown) (unknown) (no date) (unknown) (unknown) at this time. (units unknown) (unknown) (unknown) (no date) (unknown) (unknown) atorvastatin 20 mg tablet 20 mg PO BEDTIME 02/08/23 02/08/23 History (units unknown) (unknown) (unknown) (no date) (unknown) (unknown) bruit, no cardiac pulsations present. (units unknown) (unknown) (unknown) (no date) (unknown) (unknown) cholecalciferol (vitamin D3) 25 1,000 unit PO DAILY 02/08/23 02/08/23 History (units unknown) (unknown) (unknown) (no date) (unknown) (unknown) clear and mucous membranes are moist. Neck is supple and symmetric, trachea is (units unknown) (unknown) (unknown) (no date) (unknown) (unknown) demonstrated acute fracture of left femoral neck. EKG I personally reviewed (units unknown) (unknown) (unknown) (no date) (unknown) (unknown) diagnostic imaging, and laboratory results. (units unknown) (unknown) (unknown) (no date) (unknown) (unknown) diclofenac sodium 1 % topical gel 4 g topical QID 02/08/23 02/08/23 History (units unknown) (unknown) (unknown) (no date) (unknown) (unknown) disorder, history of TIA, RTBBB Alzheimer's dementia, HDL, iron-deficiency, (units unknown) (unknown) (unknown) (no date) (unknown) (unknown) documented and/or surrogate decision maker is listed in the patient's medical (units unknown) (unknown) (unknown) (no date) (unknown) (unknown) documented. Please note accuracy of ROS is impaired due to the patient's (units unknown) (unknown) (unknown) (no date) (unknown) (unknown) expected length of stay to exceed 2 midnights. (units unknown) (unknown) (unknown) (no date) (unknown) (unknown) ferrous sulfate 325 mg (65 mg 325 mg PO DAILY 02/08/23 02/08/23 History (units unknown) (unknown) (unknown) (no date) (unknown) (unknown) gabapentin 300 mg capsule 300 mg PO DAILY 02/08/23 02/08/23 History (units unknown) (unknown) (unknown) (no date) (unknown) (unknown) gabapentin 300 mg capsule 600 mg PO BID 02/08/23 02/08/23 History (units unknown) (unknown) (unknown) (no date) (unknown) (unknown) hip pain, denies chest pain, shortness at breath, any other pain or discomfort (units unknown) (unknown) (unknown) (no date) (unknown) (unknown) household members: family (units unknown) (unknown) (unknown) (no date) (unknown) (unknown) intact radial and pedal pulses are normal. Left leg externally rotated at the (units unknown) (unknown) (unknown) (no date) (unknown) (unknown) iron) tablet,delayed release (units unknown) (unknown) (unknown) (no date) (unknown) (unknown) is in an emergent medical situation were delaying treatment would jeopardize (units unknown) (unknown) (unknown) (no date) (unknown) (unknown) knee for 45? for patient comfort (units unknown) (unknown) (unknown) (no date) (unknown) (unknown) levetiracetam 750 mg tablet 750 mg PO BID 10/20/19 02/08/23 History (units unknown) (unknown) (unknown) (no date) (unknown) (unknown) mcg (1,000 unit) tablet (units unknown) (unknown) (unknown) (no date) (unknown) (unknown) melatonin 3 mg tablet 6 mg PO BEDTIME 02/08/23 02/08/23 History (units unknown) (unknown) (unknown) (no date) (unknown) (unknown) metoprolol tartrate 25 mg tablet 12.5 mg PO BID 10/20/19 02/08/23 History (units unknown) (unknown) (unknown) (no date) (unknown) (unknown) midline, no adenopathy, no thyroid enlargement, nontender, no masses palpated. (units unknown) (unknown) (unknown) (no date) (unknown) (unknown) negative for any acute changes in ED. unable to obtain accurate HPI, ROS, med (units unknown) (unknown) (unknown) (no date) (unknown) (unknown) no gross deficits noted of cranial nerves. (units unknown) (unknown) (unknown) (no date) (unknown) (unknown) normal, head CT, C-spine, chest x-ray are all without acute changes. Hip x-ray (units unknown) (unknown) (unknown) (no date) (unknown) (unknown) omeprazole 20 mg capsule,delayed 20 mg PO DAILY 02/08/23 02/08/23 History (units unknown) (unknown) (unknown) (no date) (unknown) (unknown) oral powder packet (Miralax) (units unknown) (unknown) (unknown) (no date) (unknown) (unknown) polyethylene glycol 3350 17 gram 17 g PO BID 02/08/23 02/08/23 History (units unknown) (unknown) (unknown) (no date) (unknown) (unknown) prazosin 1 mg capsule 1 mg PO BEDTIME 02/08/23 02/08/23 History (units unknown) (unknown) (unknown) (no date) (unknown) (unknown) present on admission (units unknown) (unknown) (unknown) (no date) (unknown) (unknown) reconciliation due to patient's Alzheimer dementia. Patient complains of left (units unknown) (unknown) (unknown) (no date) (unknown) (unknown) record. (units unknown) (unknown) (unknown) (no date) (unknown) (unknown) release (units unknown) (unknown) (unknown) (no date) (unknown) (unknown) sennosides 8.6 mg tablet (senna) 8.6 mg PO BID 02/08/23 02/08/23 History (units unknown) (unknown) (unknown) (no date) (unknown) (unknown) sertraline 100 mg tablet 100 mg PO BEDTIME 02/08/23 02/08/23 History (units unknown) (unknown) (unknown) (no date) (unknown) (unknown) sinus rhythm of 66 with an incomplete RBBB without ST or T-wave changes. (units unknown) (unknown) (unknown) (no date) (unknown) (unknown) the patient's current medications. (units unknown) (unknown) (unknown) (no date) (unknown) (unknown) the patient's health. (units unknown) (unknown) (unknown) (no date) (unknown) (unknown) unremarkable with the exception of HGB 11/HCT 32, alk-phos 151, troponin is (units unknown) (unknown) (unknown) (no date) (unknown) (unknown) wheezes, rhonchi, or rales. (units unknown) (unknown) (unknown) (no date) (unknown) (unknown) without nasal flaring, retractions, tachypneic or labored breathing. (units unknown) (unknown) Result panel 128 (unknown) (no date) (unknown) (unknown) (no value) (units unknown) (unknown) (unknown) (no date) (unknown) (unknown) (Arthritis Pain (diclofenac)) (units unknown) (unknown) (unknown) (no date) (unknown) (unknown) (past 8 hours): (units unknown) (unknown) (unknown) (no date) (unknown) (unknown) * Continue Keppra (units unknown) (unknown) (unknown) (no date) (unknown) (unknown) * Continue gabapentin (units unknown) (unknown) (unknown) (no date) (unknown) (unknown) * Continue sertraline, prazosin (units unknown) (unknown) (unknown) (no date) (unknown) (unknown) * D5 NS at 80 cc/HR, BS q.6 while NPO (units unknown) (unknown) (unknown) (no date) (unknown) (unknown) * Dr. Moore to consult and will take the patient to the OR later today (units unknown) (unknown) (unknown) (no date) (unknown) (unknown) * Fall precautions (units unknown) (unknown) (unknown) (no date) (unknown) (unknown) * Jaimes placement, I+O (units unknown) (unknown) (unknown) (no date) (unknown) (unknown) * H+H (units unknown) (unknown) (unknown) (no date) (unknown) (unknown) * Hold Lipitor until after surgery (units unknown) (unknown) (unknown) (no date) (unknown) (unknown) * Hold ferrous sulfate till after surgery (units unknown) (unknown) (unknown) (no date) (unknown) (unknown) * Hold metoprolol as BP is soft at this time 107/56 (units unknown) (unknown) (unknown) (no date) (unknown) (unknown) * Hold omeprazole till after surgery (units unknown) (unknown) (unknown) (no date) (unknown) (unknown) * Limit patient's stimulation + agitation as much as possible (units unknown) (unknown) (unknown) (no date) (unknown) (unknown) * NPO with the exception of sips with meds (units unknown) (unknown) (unknown) (no date) (unknown) (unknown) * Pain and antiemetic management, ice for comfort, lidocaine patches, Voltaren (units unknown) (unknown) (unknown) (no date) (unknown) (unknown) * Seizure precautions (units unknown) (unknown) (unknown) (no date) (unknown) (unknown) * UA ordered, trend CBC, BMP, PT/INR in a.m. (units unknown) (unknown) (unknown) (no date) (unknown) (unknown) 01:05 01:05 (units unknown) (unknown) (unknown) (no date) (unknown) (unknown) 02:52 02/08/23 (units unknown) (unknown) (unknown) (no date) (unknown) (unknown) 02:53 (units unknown) (unknown) (unknown) (no date) (unknown) (unknown) 02/07/23 (units unknown) (unknown) (unknown) (no date) (unknown) (unknown) 02/08/23 01:05 (units unknown) (unknown) (unknown) (no date) (unknown) (unknown) 02/08/23 0425 (units unknown) (unknown) (unknown) (no date) (unknown) (unknown) 02/08/23 02/08/23 (units unknown) (unknown) (unknown) (no date) (unknown) (unknown) 23:26 02/08/23 (units unknown) (unknown) (unknown) (no date) (unknown) (unknown) [id number] (units unknown) (unknown) (unknown) (no date) (unknown) (unknown) ALT 41 (units unknown) (unknown) (unknown) (no date) (unknown) (unknown) AST 36 (units unknown) (unknown) (unknown) (no date) (unknown) (unknown) Abdomen: Soft nontender, negative for organomegaly, or masses. Bowel sounds (units unknown) (unknown) (unknown) (no date) (unknown) (unknown) Age/Sex: 77 / M (units unknown) (unknown) (unknown) (no date) (unknown) (unknown) Albumin 3.9 (units unknown) (unknown) (unknown) (no date) (unknown) (unknown) Albumin/Globulin Ratio 1.2 (units unknown) (unknown) (unknown) (no date) (unknown) (unknown) Alkaline Phosphatase 151 H (units unknown) (unknown) (unknown) (no date) (unknown) (unknown) All 12 point systems reviewed with the patient and are negative except otherwise (units unknown) (unknown) (unknown) (no date) (unknown) (unknown) Allergies (units unknown) (unknown) (unknown) (no date) (unknown) (unknown) Allergy/AdvReac Type Severity Reaction Status Date / Time (units unknown) (unknown) (unknown) (no date) (unknown) (unknown) Alzheimer dementia (units unknown) (unknown) (unknown) (no date) (unknown) (unknown) Alzheimer's dementia (units unknown) (unknown) (unknown) (no date) (unknown) (unknown) Alzheimer's dementia, chronic, present on admission (units unknown) (unknown) (unknown) (no date) (unknown) (unknown) Anxiety (units unknown) (unknown) (unknown) (no date) (unknown) (unknown) Assessment + Plan narrative: (units unknown) (unknown) (unknown) (no date) (unknown) (unknown) Assessment + Plan (units unknown) (unknown) (unknown) (no date) (unknown) (unknown) BUN 16 (units unknown) (unknown) (unknown) (no date) (unknown) (unknown) BUN/Creatinine Ratio 16.5 (units unknown) (unknown) (unknown) (no date) (unknown) (unknown) Baso # (Auto) 0 (units unknown) (unknown) (unknown) (no date) (unknown) (unknown) Baso % (Auto) 0.3 (units unknown) (unknown) (unknown) (no date) (unknown) (unknown) Blood Pressure 131/73 107/56 L (units unknown) (unknown) (unknown) (no date) (unknown) (unknown) Calcium 8.8 (units unknown) (unknown) (unknown) (no date) (unknown) (unknown) Carbon Dioxide 28 (units unknown) (unknown) (unknown) (no date) (unknown) (unknown) Cardio: regular rate and rhythm without murmur, rubs, or gallops, no carotid (units unknown) (unknown) (unknown) (no date) (unknown) (unknown) Chest pain (units unknown) (unknown) (unknown) (no date) (unknown) (unknown) Chest: Normal AP diameter and contour without kyphoscoliosis, Equal chest rise (units unknown) (unknown) (unknown) (no date) (unknown) (unknown) Chief complaint: Left femoral neck fracture (units unknown) (unknown) (unknown) (no date) (unknown) (unknown) Chloride 104 (units unknown) (unknown) (unknown) (no date) (unknown) (unknown) Code status:Full- unable to verify at this time, nursing will contact facility (units unknown) (unknown) (unknown) (no date) (unknown) (unknown) Creatinine 0.97 (units unknown) (unknown) (unknown) (no date) (unknown) (unknown) : 1945 Acct:[id number] (units unknown) (unknown) (unknown) (no date) (unknown) (unknown) DVT/VTE prophylaxis: Holding medication due to surgery, right SCD only (units unknown) (unknown) (unknown) (no date) (unknown) (unknown) Date Patient Seen: 02/08/23 (units unknown) (unknown) (unknown) (no date) (unknown) (unknown) Date of Service: 02/08/23 (units unknown) (unknown) (unknown) (no date) (unknown) (unknown) Depression (units unknown) (unknown) (unknown) (no date) (unknown) (unknown) Disposition: Patient admitted to acute care for left femur fracture repair, (units unknown) (unknown) (unknown) (no date) (unknown) (unknown) Easy bruisability (units unknown) (unknown) (unknown) (no date) (unknown) (unknown) Eos # (Auto) 100 (units unknown) (unknown) (unknown) (no date) (unknown) (unknown) Eos % (Auto) 1.1 L (units unknown) (unknown) (unknown) (no date) (unknown) (unknown) Epilepsy (units unknown) (unknown) (unknown) (no date) (unknown) (unknown) Estimated GFR > 60 (units unknown) (unknown) (unknown) (no date) (unknown) (unknown) Exam Narrative: (units unknown) (unknown) (unknown) (no date) (unknown) (unknown) Exam (units unknown) (unknown) (unknown) (no date) (unknown) (unknown) Fall from bed, resulting in pathologic left femoral neck fracture, acute, (units unknown) (unknown) (unknown) (no date) (unknown) (unknown) GCS (units unknown) (unknown) (unknown) (no date) (unknown) (unknown) GERD, HTN who resides at a facility on [facility], was brought into the ED (units unknown) (unknown) (unknown) (no date) (unknown) (unknown) GERD, chronic, present on admission (units unknown) (unknown) (unknown) (no date) (unknown) (unknown) General: Patient is a elderly gentleman, cachectic pleasantly demented, with (units unknown) (unknown) (unknown) (no date) (unknown) (unknown) Roscoe coma scale eye opening: Spontaneous (units unknown) (unknown) (unknown) (no date) (unknown) (unknown) Roscoe coma scale motor response: Obey commands (units unknown) (unknown) (unknown) (no date) (unknown) (unknown) Roscoe coma scale total score: 14 (units unknown) (unknown) (unknown) (no date) (unknown) (unknown) Roscoe coma scale verbal response: Confused (units unknown) (unknown) (unknown) (no date) (unknown) (unknown) Globulin 3.3 (units unknown) (unknown) (unknown) (no date) (unknown) (unknown) Glucose 103 (units unknown) (unknown) (unknown) (no date) (unknown) (unknown) HEENT: Normocephalic, atraumatic, extraocular muscles intact, oral pharynx is (units unknown) (unknown) (unknown) (no date) (unknown) (unknown) Hct 32.3 L (units unknown) (unknown) (unknown) (no date) (unknown) (unknown) Heart burn (units unknown) (unknown) (unknown) (no date) (unknown) (unknown) Hgb 11.1 L (units unknown) (unknown) (unknown) (no date) (unknown) (unknown) History + Physical Report (units unknown) (unknown) (unknown) (no date) (unknown) (unknown) History of Present Illness (units unknown) (unknown) (unknown) (no date) (unknown) (unknown) Home Medications and Allergies (units unknown) (unknown) (unknown) (no date) (unknown) (unknown) Home Medications (units unknown) (unknown) (unknown) (no date) (unknown) (unknown) Hyperlipidemia, chronic, present on admission (units unknown) (unknown) (unknown) (no date) (unknown) (unknown) Hypertension, essential, chronic, present on admission (units unknown) (unknown) (unknown) (no date) (unknown) (unknown) I confirmed that the patient's advanced care plan is present, Code status is (units unknown) (unknown) (unknown) (no date) (unknown) (unknown) I have personally reviewed patient's chart notes from PCP, specialists, (units unknown) (unknown) (unknown) (no date) (unknown) (unknown) I have utilized all available immediate resources to obtain, update, or review (units unknown) (unknown) (unknown) (no date) (unknown) (unknown) Iron-deficiency anemia, chronic, present on admission (units unknown) (unknown) (unknown) (no date) (unknown) (unknown) [address] [address] (units unknown) (unknown) (unknown) (no date) (unknown) (unknown) Laboratory Results - last 24 hr (units unknown) (unknown) (unknown) (no date) (unknown) (unknown) Labs (units unknown) (unknown) (unknown) (no date) (unknown) (unknown) Labs: (units unknown) (unknown) (unknown) (no date) (unknown) (unknown) Donna Garcia is a 77-year-old male with a past medical history of seizure (units unknown) (unknown) (unknown) (no date) (unknown) (unknown) Donna Garcia is a pleasantly demented 77-year-old male with a past medical (units unknown) (unknown) (unknown) (no date) (unknown) (unknown) Lungs: Auscultation of all lung arce are clear without adventitious sounds, (units unknown) (unknown) (unknown) (no date) (unknown) (unknown) Lymph # (Auto) 1600 (units unknown) (unknown) (unknown) (no date) (unknown) (unknown) Lymph % (Auto) 23.4 L (units unknown) (unknown) (unknown) (no date) (unknown) (unknown) MCH 33.7 (units unknown) (unknown) (unknown) (no date) (unknown) (unknown) MCHC 34.2 (units unknown) (unknown) (unknown) (no date) (unknown) (unknown) MCV 98.5 (units unknown) (unknown) (unknown) (no date) (unknown) (unknown) Medical History (units unknown) (unknown) (unknown) (no date) (unknown) (unknown) Medication Instructions Recorded Confirmed Type (units unknown) (unknown) (unknown) (no date) (unknown) (unknown) Meds (units unknown) (unknown) (unknown) (no date) (unknown) (unknown) Aurora # (Auto) 500 (units unknown) (unknown) (unknown) (no date) (unknown) (unknown) Aurora % (Auto) 7.6 (units unknown) (unknown) (unknown) (no date) (unknown) (unknown) Musculoskeletal: Significant muscle wasting throughout but equal. Patient (units unknown) (unknown) (unknown) (no date) (unknown) (unknown) Narrative (units unknown) (unknown) (unknown) (no date) (unknown) (unknown) Narrative: (units unknown) (unknown) (unknown) (no date) (unknown) (unknown) Neck pain (units unknown) (unknown) (unknown) (no date) (unknown) (unknown) Negative for JVD (units unknown) (unknown) (unknown) (no date) (unknown) (unknown) Neuro: Alert and orientated to self. sensation to touch intact, no gross (units unknown) (unknown) (unknown) (no date) (unknown) (unknown) Neut # (Auto) 4500 (units unknown) (unknown) (unknown) (no date) (unknown) (unknown) Neut % (Auto) 67.6 (units unknown) (unknown) (unknown) (no date) (unknown) (unknown) No Known Drug Allergies Allergy Verified 11/12/20 08:34 (units unknown) (unknown) (unknown) (no date) (unknown) (unknown) No history of previous surgery (units unknown) (unknown) (unknown) (no date) (unknown) (unknown) Numbness and tingling (units unknown) (unknown) (unknown) (no date) (unknown) (unknown) Objective (units unknown) (unknown) (unknown) (no date) (unknown) (unknown) Osteoarthritis (units unknown) (unknown) (unknown) (no date) (unknown) (unknown) Osteoarthritis, chronic, present on admission (units unknown) (unknown) (unknown) (no date) (unknown) (unknown) Oxygen Delivery Method Room Air Room Air (units unknown) (unknown) (unknown) (no date) (unknown) (unknown) Oxygen Delivery Method Room Air (units unknown) (unknown) (unknown) (no date) (unknown) (unknown) PFSH (units unknown) (unknown) (unknown) (no date) (unknown) (unknown) Pain (units unknown) (unknown) (unknown) (no date) (unknown) (unknown) Patient: Donna Garcia MR#: [id number] (units unknown) (unknown) (unknown) (no date) (unknown) (unknown) Plt Count 196 (units unknown) (unknown) (unknown) (no date) (unknown) (unknown) Potassium 3.9 (units unknown) (unknown) (unknown) (no date) (unknown) (unknown) Provider: Edita Galindo (units unknown) (unknown) (unknown) (no date) (unknown) (unknown) Psych: Patient is pleasant, able to follow commands. (units unknown) (unknown) (unknown) (no date) (unknown) (unknown) Pulse Oximetry 96 93 (units unknown) (unknown) (unknown) (no date) (unknown) (unknown) Pulse Rate 70 66 (units unknown) (unknown) (unknown) (no date) (unknown) (unknown) RBBB (right bundle branch block) (units unknown) (unknown) (unknown) (no date) (unknown) (unknown) RBC 3.28 L (units unknown) (unknown) (unknown) (no date) (unknown) (unknown) RDW 16.6 H (units unknown) (unknown) (unknown) (no date) (unknown) (unknown) Respiratory Rate 16 18 (units unknown) (unknown) (unknown) (no date) (unknown) (unknown) Review of Systems (units unknown) (unknown) (unknown) (no date) (unknown) (unknown) Scores (units unknown) (unknown) (unknown) (no date) (unknown) (unknown) Seizure disorder, chronic, present on admission (units unknown) (unknown) (unknown) (no date) (unknown) (unknown) Seizures (units unknown) (unknown) (unknown) (no date) (unknown) (unknown) Signed By:<Electronically signed by Edita Galindo> (units unknown) (unknown) (unknown) (no date) (unknown) (unknown) Skin: Warm dry and intact without rashes, ulcerations or petechiae. (units unknown) (unknown) (unknown) (no date) (unknown) (unknown) Smoking Status: Current every day smoker (units unknown) (unknown) (unknown) (no date) (unknown) (unknown) Social History (units unknown) (unknown) (unknown) (no date) (unknown) (unknown) Sodium 137 (units unknown) (unknown) (unknown) (no date) (unknown) (unknown) Surgical History (units unknown) (unknown) (unknown) (no date) (unknown) (unknown) Surrogate decision maker: Sister Vladimir leon (units unknown) (unknown) (unknown) (no date) (unknown) (unknown) TIA (transient ischemic attack) (units unknown) (unknown) (unknown) (no date) (unknown) (unknown) Temperature 98.6 F (units unknown) (unknown) (unknown) (no date) (unknown) (unknown) Time Patient Seen: 03:03 (units unknown) (unknown) (unknown) (no date) (unknown) (unknown) Total Bilirubin 0.3 (units unknown) (unknown) (unknown) (no date) (unknown) (unknown) Total Protein 7.2 (units unknown) (unknown) (unknown) (no date) (unknown) (unknown) Troponin I < 0.012 (units unknown) (unknown) (unknown) (no date) (unknown) (unknown) Vital Signs (units unknown) (unknown) (unknown) (no date) (unknown) (unknown) Vitals temp 98.6?, 107/56, 66, 18, 93% on room air. Laboratory workups are (units unknown) (unknown) (unknown) (no date) (unknown) (unknown) WBC 6.6 (units unknown) (unknown) (unknown) (no date) (unknown) (unknown) [Embedded Image Not Available] (units unknown) (unknown) (unknown) (no date) (unknown) (unknown) acetaminophen 500 mg tablet 1,000 mg PO TID 02/08/23 02/08/23 History (units unknown) (unknown) (unknown) (no date) (unknown) (unknown) after rolling out of bed landing on the floor fracturing left femur. (units unknown) (unknown) (unknown) (no date) (unknown) (unknown) alcohol intake: current (units unknown) (unknown) (unknown) (no date) (unknown) (unknown) are present in all 4 quadrants without guarding or rebound, no CVA tenderness. (units unknown) (unknown) (unknown) (no date) (unknown) (unknown) aspirin 81 mg tablet,delayed 81 mg PO DAILY 02/08/23 02/08/23 History (units unknown) (unknown) (unknown) (no date) (unknown) (unknown) at this time. His moving around in bed and appears to be in mild discomfort, (units unknown) (unknown) (unknown) (no date) (unknown) (unknown) atorvastatin 20 mg tablet 20 mg PO BEDTIME 02/08/23 02/08/23 History (units unknown) (unknown) (unknown) (no date) (unknown) (unknown) brought into the ED after rolling out of bed landing on the floor fracturing (units unknown) (unknown) (unknown) (no date) (unknown) (unknown) bruit, no cardiac pulsations present. (units unknown) (unknown) (unknown) (no date) (unknown) (unknown) but in no acute distress at this time. (units unknown) (unknown) (unknown) (no date) (unknown) (unknown) cholecalciferol (vitamin D3) 25 1,000 unit PO DAILY 02/08/23 02/08/23 History (units unknown) (unknown) (unknown) (no date) (unknown) (unknown) clear and mucous membranes are dry. Neck is supple and symmetric, trachea is (units unknown) (unknown) (unknown) (no date) (unknown) (unknown) clubbing or edema present. intact radial and pedal pulses are normal. Left leg (units unknown) (unknown) (unknown) (no date) (unknown) (unknown) deficiency, GERD, +HTN who resides at a snf on [facility], was (units unknown) (unknown) (unknown) (no date) (unknown) (unknown) deficits noted of cranial nerves. (units unknown) (unknown) (unknown) (no date) (unknown) (unknown) demonstrated acute fracture of left femoral neck. EKG I personally reviewed (units unknown) (unknown) (unknown) (no date) (unknown) (unknown) diagnostic imaging, and laboratory results. (units unknown) (unknown) (unknown) (no date) (unknown) (unknown) diclofenac sodium 1 % topical gel 4 g topical QID 02/08/23 02/08/23 History (units unknown) (unknown) (unknown) (no date) (unknown) (unknown) disorder, history of TIA, RTBBB Alzheimer's dementia, HDL, iron-deficiency, (units unknown) (unknown) (unknown) (no date) (unknown) (unknown) documented and/or surrogate decision maker is listed in the patient's medical (units unknown) (unknown) (unknown) (no date) (unknown) (unknown) documented. Please note accuracy of ROS is impaired due to the patient's (units unknown) (unknown) (unknown) (no date) (unknown) (unknown) expected length of stay to exceed 2 midnights. (units unknown) (unknown) (unknown) (no date) (unknown) (unknown) externally rotated, knee @ 45? angle. (units unknown) (unknown) (unknown) (no date) (unknown) (unknown) ferrous sulfate 325 mg (65 mg 325 mg PO DAILY 02/08/23 02/08/23 History (units unknown) (unknown) (unknown) (no date) (unknown) (unknown) gabapentin 300 mg capsule 300 mg PO DAILY 02/08/23 02/08/23 History (units unknown) (unknown) (unknown) (no date) (unknown) (unknown) gabapentin 300 mg capsule 600 mg PO BID 02/08/23 02/08/23 History (units unknown) (unknown) (unknown) (no date) (unknown) (unknown) hip pain, denies chest pain, shortness at breath, any other pain or discomfort (units unknown) (unknown) (unknown) (no date) (unknown) (unknown) history of seizure disorder, remote TIA, RTBBB Alzheimer's dementia, HDL, iron (units unknown) (unknown) (unknown) (no date) (unknown) (unknown) household members: family (units unknown) (unknown) (unknown) (no date) (unknown) (unknown) iron) tablet,delayed release (units unknown) (unknown) (unknown) (no date) (unknown) (unknown) left femur. Ed was unable to verify if pt had hit his head or had a LOC, head CT (units unknown) (unknown) (unknown) (no date) (unknown) (unknown) levetiracetam 750 mg tablet 750 mg PO BID 10/20/19 02/08/23 History (units unknown) (unknown) (unknown) (no date) (unknown) (unknown) mcg (1,000 unit) tablet (units unknown) (unknown) (unknown) (no date) (unknown) (unknown) melatonin 3 mg tablet 6 mg PO BEDTIME 02/08/23 02/08/23 History (units unknown) (unknown) (unknown) (no date) (unknown) (unknown) metoprolol tartrate 25 mg tablet 12.5 mg PO BID 10/20/19 02/08/23 History (units unknown) (unknown) (unknown) (no date) (unknown) (unknown) midline, no adenopathy, no thyroid enlargement, nontender, no masses palpated. (units unknown) (unknown) (unknown) (no date) (unknown) (unknown) mild to moderate left hip pain but in no acute distress at this time. (units unknown) (unknown) (unknown) (no date) (unknown) (unknown) moving all extremities with the exception of left lower leg, though patient is (units unknown) (unknown) (unknown) (no date) (unknown) (unknown) normal, head CT, C-spine, chest x-ray are all without acute changes. Hip x-ray (units unknown) (unknown) (unknown) (no date) (unknown) (unknown) omeprazole 20 mg capsule,delayed 20 mg PO DAILY 02/08/23 02/08/23 History (units unknown) (unknown) (unknown) (no date) (unknown) (unknown) on days to verify advanced directive. (units unknown) (unknown) (unknown) (no date) (unknown) (unknown) oral powder packet (Miralax) (units unknown) (unknown) (unknown) (no date) (unknown) (unknown) polyethylene glycol 3350 17 gram 17 g PO BID 02/08/23 02/08/23 History (units unknown) (unknown) (unknown) (no date) (unknown) (unknown) prazosin 1 mg capsule 1 mg PO BEDTIME 02/08/23 02/08/23 History (units unknown) (unknown) (unknown) (no date) (unknown) (unknown) present on admission (units unknown) (unknown) (unknown) (no date) (unknown) (unknown) reconciliation due to patient's Alzheimer dementia. Patient complains of left (units unknown) (unknown) (unknown) (no date) (unknown) (unknown) record. (units unknown) (unknown) (unknown) (no date) (unknown) (unknown) release (units unknown) (unknown) (unknown) (no date) (unknown) (unknown) sennosides 8.6 mg tablet (senna) 8.6 mg PO BID 02/08/23 02/08/23 History (units unknown) (unknown) (unknown) (no date) (unknown) (unknown) sertraline 100 mg tablet 100 mg PO BEDTIME 02/08/23 02/08/23 History (units unknown) (unknown) (unknown) (no date) (unknown) (unknown) sinus rhythm of 66 with an incomplete RBBB without ST or T-wave changes. (units unknown) (unknown) (unknown) (no date) (unknown) (unknown) stroking left lower leg with right foot. Extremities no effusions, cyanosis, (units unknown) (unknown) (unknown) (no date) (unknown) (unknown) the patient's current medications. (units unknown) (unknown) (unknown) (no date) (unknown) (unknown) unremarkable with the exception of HGB 11/HCT 32, alk-phos 151, troponin is (units unknown) (unknown) (unknown) (no date) (unknown) (unknown) was negative for any acute changes. Unable to obtain accurate HPI, ROS, med (units unknown) (unknown) (unknown) (no date) (unknown) (unknown) wheezes, rhonchi, or rales. (units unknown) (unknown) (unknown) (no date) (unknown) (unknown) without nasal flaring, retractions, tachypneic or labored breathing. (units unknown) (unknown) Result panel 129 (unknown) (no date) (unknown) (unknown) 0.2 e.u./dl (unknown) (unknown) (no date) (unknown) (unknown) 1.010 (units unknown) (unknown) (unknown) (no date) (unknown) (unknown) 6.0 (units unknown) (unknown) (unknown) (no date) (unknown) (unknown) CLEAR (units unknown) (unknown) (unknown) (no date) (unknown) (unknown) NEGATIVE (units unknown) (unknown) (unknown) (no date) (unknown) (unknown) NEGATIVE g/dl (unknown) (unknown) (no date) (unknown) (unknown) TRACE (units unknown) (unknown) (unknown) (no date) (unknown) (unknown) YELLOW (units unknown) (unknown) (unknown) (no date) (unknown) (unknown) YELLOW (units unknown) (unknown) Result panel 130 (unknown) (no date) (unknown) (unknown) 0.2 e.u./dl (unknown) (unknown) (no date) (unknown) (unknown) 1.010 (units unknown) (unknown) (unknown) (no date) (unknown) (unknown) 6.0 (units unknown) (unknown) (unknown) (no date) (unknown) (unknown) CLEAR (units unknown) (unknown) (unknown) (no date) (unknown) (unknown) Cult Not Indicated (units unknown) (unknown) (unknown) (no date) (unknown) (unknown) NEGATIVE (units unknown) (unknown) (unknown) (no date) (unknown) (unknown) NEGATIVE g/dl (unknown) (unknown) (no date) (unknown) (unknown) None Seen (units unknown) (unknown) (unknown) (no date) (unknown) (unknown) None Seen (units unknown) (unknown) (unknown) (no date) (unknown) (unknown) TRACE (units unknown) (unknown) (unknown) (no date) (unknown) (unknown) YELLOW (units unknown) (unknown) (unknown) (no date) (unknown) (unknown) YELLOW (units unknown) (unknown) Result panel 131 (unknown) (no date) (unknown) (unknown) 0 /ul (unknown) (unknown) (no date) (unknown) (unknown) 0.2 % (unknown) (unknown) (no date) (unknown) (unknown) 1.1 % (unknown) (unknown) (no date) (unknown) (unknown) 10.0 % (unknown) (unknown) (no date) (unknown) (unknown) 10.4 g/dl (unknown) (unknown) (no date) (unknown) (unknown) 100 /ul (unknown) (unknown) (no date) (unknown) (unknown) 17.0 % (unknown) (unknown) (no date) (unknown) (unknown) 1700 /ul (unknown) (unknown) (no date) (unknown) (unknown) 186 x10 3/ul (unknown) (unknown) (no date) (unknown) (unknown) 29.1 % (unknown) (unknown) (no date) (unknown) (unknown) 3.11 x10 6/ul (unknown) (unknown) (no date) (unknown) (unknown) 30.2 % (unknown) (unknown) (no date) (unknown) (unknown) 33.5 pg (unknown) (unknown) (no date) (unknown) (unknown) 34.5 % (unknown) (unknown) (no date) (unknown) (unknown) 3500 /ul (unknown) (unknown) (no date) (unknown) (unknown) 5.8 x10 3/ul (unknown) (unknown) (no date) (unknown) (unknown) 59.6 % (unknown) (unknown) (no date) (unknown) (unknown) 600 /ul (unknown) (unknown) (no date) (unknown) (unknown) 97.2 fl (unknown) Result panel 132 (unknown) (no date) (unknown) (unknown) > 60 ml/min (unknown) (unknown) (no date) (unknown) (unknown) > 60 ml/min (unknown) (unknown) (no date) (unknown) (unknown) 0.97 mg/dl (unknown) (unknown) (no date) (unknown) (unknown) 1.2 (units unknown) (unknown) (unknown) (no date) (unknown) (unknown) 104 mmol/l (unknown) (unknown) (no date) (unknown) (unknown) 111 mg/dl (unknown) (unknown) (no date) (unknown) (unknown) 111 mg/dl (unknown) (unknown) (no date) (unknown) (unknown) 13.8 seconds (unknown) (unknown) (no date) (unknown) (unknown) 138 mmol/l (unknown) (unknown) (no date) (unknown) (unknown) 19 mg/dl (unknown) (unknown) (no date) (unknown) (unknown) 19.6 (units unknown) (unknown) (unknown) (no date) (unknown) (unknown) 28 mmol/l (unknown) (unknown) (no date) (unknown) (unknown) 3.9 mmol/l (unknown) (unknown) (no date) (unknown) (unknown) 34 seconds (unknown) (unknown) (no date) (unknown) (unknown) 34 seconds (unknown) (unknown) (no date) (unknown) (unknown) 8.5 mg/dl (unknown) Result panel 133 (unknown) (no date) (unknown) (unknown) (no value) (units unknown) (unknown) (unknown) (no date) (unknown) (unknown) <Electronically signed by Lana Allison MD> (units unknown) (unknown) (unknown) (no date) (unknown) (unknown) (Arthritis Pain (diclofenac)) (units unknown) (unknown) (unknown) (no date) (unknown) (unknown) - Fracture of unspecified part of neck of left femur, initial encounter for (units unknown) (unknown) (unknown) (no date) (unknown) (unknown) 01:05 01:05 (units unknown) (unknown) (unknown) (no date) (unknown) (unknown) 02/07/23 23:39 (units unknown) (unknown) (unknown) (no date) (unknown) (unknown) 02/07/23 (units unknown) (unknown) (unknown) (no date) (unknown) (unknown) 02/08/23 00:51 (units unknown) (unknown) (unknown) (no date) (unknown) (unknown) 02/08/23 01:05 (units unknown) (unknown) (unknown) (no date) (unknown) (unknown) 02/08/23 05:50 (units unknown) (unknown) (unknown) (no date) (unknown) (unknown) 02/08/23 02/08/23 Range/Units (units unknown) (unknown) (unknown) (no date) (unknown) (unknown) 02/08/23 0643 (units unknown) (unknown) (unknown) (no date) (unknown) (unknown) 23:26 (units unknown) (unknown) (unknown) (no date) (unknown) (unknown) 2:40am Ms Dvidson, hospitalist, will admit (units unknown) (unknown) (unknown) (no date) (unknown) (unknown) [id number] (units unknown) (unknown) (unknown) (no date) (unknown) (unknown) 77-year-old gentleman with a history of seizure disorder and he describes his (units unknown) (unknown) (unknown) (no date) (unknown) (unknown) ALT 41 (<50) IU/L (units unknown) (unknown) (unknown) (no date) (unknown) (unknown) AST 36 (17-59) IU/L (units unknown) (unknown) (unknown) (no date) (unknown) (unknown) Abdomen: Soft, nontender, good bowel tones, no flank pain (units unknown) (unknown) (unknown) (no date) (unknown) (unknown) Accidental fall from bed, Seizure disorder (units unknown) (unknown) (unknown) (no date) (unknown) (unknown) Acetaminophen (Acetaminophen 325 Mg Tablet) 650 mg PO Q6H PRN (units unknown) (unknown) (unknown) (no date) (unknown) (unknown) Age/Sex: 77 / M (units unknown) (unknown) (unknown) (no date) (unknown) (unknown) Albumin 3.9 (3.5-5.0) g/dL (units unknown) (unknown) (unknown) (no date) (unknown) (unknown) Albumin/Globulin Ratio 1.2 (1.0-2.8) (units unknown) (unknown) (unknown) (no date) (unknown) (unknown) Alkaline Phosphatase 151 H (38-126) U/L (units unknown) (unknown) (unknown) (no date) (unknown) (unknown) Allergies (units unknown) (unknown) (unknown) (no date) (unknown) (unknown) Allergy/AdvReac Type Severity Reaction Status Date / Time (units unknown) (unknown) (unknown) (no date) (unknown) (unknown) Alzheimer's dementia (units unknown) (unknown) (unknown) (no date) (unknown) (unknown) Anxiety (units unknown) (unknown) (unknown) (no date) (unknown) (unknown) Apparently this evening he rolled out of bed landed on his left hip and did hit (units unknown) (unknown) (unknown) (no date) (unknown) (unknown) BUN 16 (9-20) mg/dL (units unknown) (unknown) (unknown) (no date) (unknown) (unknown) BUN/Creatinine Ratio 16.5 (6-22) (units unknown) (unknown) (unknown) (no date) (unknown) (unknown) Baso # (Auto) 0 (0-100) /uL (units unknown) (unknown) (unknown) (no date) (unknown) (unknown) Baso % (Auto) 0.3 (0-2) % (units unknown) (unknown) (unknown) (no date) (unknown) (unknown) Blood Pressure 131/73 02/07/23 23:26 (units unknown) (unknown) (unknown) (no date) (unknown) (unknown) Blood Pressure 131/73 (units unknown) (unknown) (unknown) (no date) (unknown) (unknown) CBC is notable for absence of leukocytosis. Slight anemia at 11.1 and 32.3 with (units unknown) (unknown) (unknown) (no date) (unknown) (unknown) CC: Rolled out of bed, lives at an adult family home, complaining of left hip (units unknown) (unknown) (unknown) (no date) (unknown) (unknown) CT cervical spine wo con Stat (units unknown) (unknown) (unknown) (no date) (unknown) (unknown) CT head no acute abnormalities or intracranial bleed (units unknown) (unknown) (unknown) (no date) (unknown) (unknown) CT head/brain wo con Stat (units unknown) (unknown) (unknown) (no date) (unknown) (unknown) Calcium 8.8 (8.4-10.2) mg/dL (units unknown) (unknown) (unknown) (no date) (unknown) (unknown) Carbon Dioxide 28 (22-32) mmol/L (units unknown) (unknown) (unknown) (no date) (unknown) (unknown) Cardiac: Regular rate and rhythm no murmurs no bruits (units unknown) (unknown) (unknown) (no date) (unknown) (unknown) Cervical spine is unremarkable (units unknown) (unknown) (unknown) (no date) (unknown) (unknown) Chemistries are reassuring with creatinine at 0.97 (units unknown) (unknown) (unknown) (no date) (unknown) (unknown) Chest pain (units unknown) (unknown) (unknown) (no date) (unknown) (unknown) Chest x-ray (units unknown) (unknown) (unknown) (no date) (unknown) (unknown) Chief Complaint: Extremity Injury, Lower (units unknown) (unknown) (unknown) (no date) (unknown) (unknown) Chloride 104 (98-107) mmol/L (units unknown) (unknown) (unknown) (no date) (unknown) (unknown) Clinical Impression: (units unknown) (unknown) (unknown) (no date) (unknown) (unknown) Closed hip fracture (units unknown) (unknown) (unknown) (no date) (unknown) (unknown) Complete Blood Count AUTO DIFF Stat (units unknown) (unknown) (unknown) (no date) (unknown) (unknown) Complicating co-morbidities: Seizures, BPH, depression, constipation -no (units unknown) (unknown) (unknown) (no date) (unknown) (unknown) Comprehensive Metabolic Panel Stat (units unknown) (unknown) (unknown) (no date) (unknown) (unknown) Consultations: 2:25am Dr Moore, orthopedic surgery. She will consult (units unknown) (unknown) (unknown) (no date) (unknown) (unknown) Course (units unknown) (unknown) (unknown) (no date) (unknown) (unknown) Creatinine 0.97 (0.66-1.25) mg/dL (units unknown) (unknown) (unknown) (no date) (unknown) (unknown) Currently lives in adult family skilled nursing (units unknown) (unknown) (unknown) (no date) (unknown) (unknown) : 1945 Acct:[id number] (units unknown) (unknown) (unknown) (no date) (unknown) (unknown) Data collected from: patient, (units unknown) (unknown) (unknown) (no date) (unknown) (unknown) Date of Service: 02/08/23 (units unknown) (unknown) (unknown) (no date) (unknown) (unknown) Dementia type: unspecified type Dementia severity: moderate Dementia behavioral (units unknown) (unknown) (unknown) (no date) (unknown) (unknown) Dementia (units unknown) (unknown) (unknown) (no date) (unknown) (unknown) Departure (units unknown) (unknown) (unknown) (no date) (unknown) (unknown) Depression (units unknown) (unknown) (unknown) (no date) (unknown) (unknown) Dextrose/Sodium Chloride (Dextrose 5%-0.9% Ns) 1,000 mls @ 80 mls/hr IV CONT (units unknown) (unknown) (unknown) (no date) (unknown) (unknown) Diclofenac Sodium (Diclofenac 1% Gel 100 Gm) 1 applic TOP QID PRN (units unknown) (unknown) (unknown) (no date) (unknown) (unknown) Differential considered: Hip fracture, femur fracture, pelvic fracture, soft (units unknown) (unknown) (unknown) (no date) (unknown) (unknown) Discharge Plan (units unknown) (unknown) (unknown) (no date) (unknown) (unknown) Discontinued Medications (units unknown) (unknown) (unknown) (no date) (unknown) (unknown) Discussion: Pleasant 77-year-old gentleman who rolled out of bed falling onto (units unknown) (unknown) (unknown) (no date) (unknown) (unknown) Documented By: GENIE (units unknown) (unknown) (unknown) (no date) (unknown) (unknown) Documented By: YODIT (units unknown) (unknown) (unknown) (no date) (unknown) (unknown) Due to fall from bed unclear whether he hit his head and slight dementia, (units unknown) (unknown) (unknown) (no date) (unknown) (unknown) ED Orders (units unknown) (unknown) (unknown) (no date) (unknown) (unknown) ER Physician: Lana Allison MD (units unknown) (unknown) (unknown) (no date) (unknown) (unknown) Easy bruisability (units unknown) (unknown) (unknown) (no date) (unknown) (unknown) Emergency Report (units unknown) (unknown) (unknown) (no date) (unknown) (unknown) Encounter type: initial encounter Laterality: left Qualified Code(s): S72.002A (units unknown) (unknown) (unknown) (no date) (unknown) (unknown) Eos # (Auto) 100 (0-450) /uL (units unknown) (unknown) (unknown) (no date) (unknown) (unknown) Eos % (Auto) 1.1 L (2-4) % (units unknown) (unknown) (unknown) (no date) (unknown) (unknown) Epilepsy (units unknown) (unknown) (unknown) (no date) (unknown) (unknown) Estimated GFR > 60 (>60) mL/min (units unknown) (unknown) (unknown) (no date) (unknown) (unknown) Exam documented above, pertinent findings include: Pleasantly confused (units unknown) (unknown) (unknown) (no date) (unknown) (unknown) Exam (units unknown) (unknown) (unknown) (no date) (unknown) (unknown) Extremities: No tenderness with manipulation of pelvic ring. Pain along the (units unknown) (unknown) (unknown) (no date) (unknown) (unknown) Full and symmetrical air movement (units unknown) (unknown) (unknown) (no date) (unknown) (unknown) General (units unknown) (unknown) (unknown) (no date) (unknown) (unknown) General: Older-appearing gentleman in no acute distress. Cooperative with exam (units unknown) (unknown) (unknown) (no date) (unknown) (unknown) Globulin 3.3 (1.7-4.1) g/dL (units unknown) (unknown) (unknown) (no date) (unknown) (unknown) Glucose 103 (80-110) mg/dL (units unknown) (unknown) (unknown) (no date) (unknown) (unknown) HEENT: Moist mucous membranes, normal sclera with reactive pupils, atraumatic (units unknown) (unknown) (unknown) (no date) (unknown) (unknown) HPI - Extremity Injury (Lower) (units unknown) (unknown) (unknown) (no date) (unknown) (unknown) HPI Narrative: (units unknown) (unknown) (unknown) (no date) (unknown) (unknown) Hct 32.3 L (41-53) % (units unknown) (unknown) (unknown) (no date) (unknown) (unknown) Heart burn (units unknown) (unknown) (unknown) (no date) (unknown) (unknown) Hgb 11.1 L (13.5-17.5) g/dL (units unknown) (unknown) (unknown) (no date) (unknown) (unknown) History of Present Illness (units unknown) (unknown) (unknown) (no date) (unknown) (unknown) Home Medications (units unknown) (unknown) (unknown) (no date) (unknown) (unknown) Hydromorphone HCl (Hydromorphone 0.5 Mg Inj) 0.5 mg IV Q15MIN PRN (units unknown) (unknown) (unknown) (no date) (unknown) (unknown) Hydromorphone HCl (Hydromorphone 0.5 Mg Inj) 0.5 mg IV Q2H PRN (units unknown) (unknown) (unknown) (no date) (unknown) (unknown) Imaging studies independently reviewed: (units unknown) (unknown) (unknown) (no date) (unknown) (unknown) Incomplete right bundle branch block. Poor baseline overall that no acute (units unknown) (unknown) (unknown) (no date) (unknown) (unknown) Independently reviewed EKG (units unknown) (unknown) (unknown) (no date) (unknown) (unknown) Initial Vital Signs (units unknown) (unknown) (unknown) (no date) (unknown) (unknown) Initial Vital Signs: (units unknown) (unknown) (unknown) (no date) (unknown) (unknown) [address] [id number] (units unknown) (unknown) (unknown) (no date) (unknown) (unknown) Lab Data (units unknown) (unknown) (unknown) (no date) (unknown) (unknown) Lab Results (units unknown) (unknown) (unknown) (no date) (unknown) (unknown) Lab Test results independently reviewed as above. Pertinent findings: (units unknown) (unknown) (unknown) (no date) (unknown) (unknown) Labs: (units unknown) (unknown) (unknown) (no date) (unknown) (unknown) Last Admin: 02/08/23 01:18 Dose: 0.5 mg (units unknown) (unknown) (unknown) (no date) (unknown) (unknown) Last Admin: 02/08/23 04:16 Dose: 80 mls/hr (units unknown) (unknown) (unknown) (no date) (unknown) (unknown) Last Admin: 02/08/23 04:17 Dose: 0.5 mg (units unknown) (unknown) (unknown) (no date) (unknown) (unknown) Last Admin: 02/08/23 04:31 Dose: Not Given (units unknown) (unknown) (unknown) (no date) (unknown) (unknown) Levetiracetam (Levetiracetam 250 Mg Tablet) 750 mg PO BID STEFANY (units unknown) (unknown) (unknown) (no date) (unknown) (unknown) Lidocaine (Lidocaine Patch 1 Each Adh..Patch) 1 each TOP DAILY PRN (units unknown) (unknown) (unknown) (no date) (unknown) (unknown) Lymph # (Auto) 1600 (1132-5592) /uL (units unknown) (unknown) (unknown) (no date) (unknown) (unknown) Lymph % (Auto) 23.4 L (25-40) % (units unknown) (unknown) (unknown) (no date) (unknown) (unknown) MCH 33.7 (26-34) PG (units unknown) (unknown) (unknown) (no date) (unknown) (unknown) MCHC 34.2 (30-36) % (units unknown) (unknown) (unknown) (no date) (unknown) (unknown) MCV 98.5 (80-100) fL (units unknown) (unknown) (unknown) (no date) (unknown) (unknown) MDM - Extremity Injury (Lower) (units unknown) (unknown) (unknown) (no date) (unknown) (unknown) MDM Narrative (units unknown) (unknown) (unknown) (no date) (unknown) (unknown) Medical History (units unknown) (unknown) (unknown) (no date) (unknown) (unknown) Medical decision making narrative: (units unknown) (unknown) (unknown) (no date) (unknown) (unknown) Medical records reviewed: Notes from his group family home were reviewed and (units unknown) (unknown) (unknown) (no date) (unknown) (unknown) Medication Instructions Recorded Confirmed (units unknown) (unknown) (unknown) (no date) (unknown) (unknown) Metoprolol Tartrate (Metoprolol Ir 25 Mg Tablet) 12.5 mg PO BID STEFANY (units unknown) (unknown) (unknown) (no date) (unknown) (unknown) Mode of arrival: EMS (units unknown) (unknown) (unknown) (no date) (unknown) (unknown) [place] # (Auto) 500 (0-900) /uL (units unknown) (unknown) (unknown) (no date) (unknown) (unknown) [place] % (Auto) 7.6 (3-14) % (units unknown) (unknown) (unknown) (no date) (unknown) (unknown) Naloxone HCl (Naloxone 0.4 Mg/Ml Vial) 0.2 mg IV Q2MIN PRN (units unknown) (unknown) (unknown) (no date) (unknown) (unknown) Narrative: (units unknown) (unknown) (unknown) (no date) (unknown) (unknown) Neck pain (units unknown) (unknown) (unknown) (no date) (unknown) (unknown) Neck: No midline cervical spine tenderness, supple (units unknown) (unknown) (unknown) (no date) (unknown) (unknown) Neurologic: Grossly neurologically intact with no obvious asymmetries or (units unknown) (unknown) (unknown) (no date) (unknown) (unknown) Neut # (Auto) 4500 (9483-9874) /uL (units unknown) (unknown) (unknown) (no date) (unknown) (unknown) Neut % (Auto) 67.6 (50-75) % (units unknown) (unknown) (unknown) (no date) (unknown) (unknown) No Known Drug Allergies Allergy Verified 11/12/20 08:34 (units unknown) (unknown) (unknown) (no date) (unknown) (unknown) No history of previous surgery (units unknown) (unknown) (unknown) (no date) (unknown) (unknown) Numbness and tingling (units unknown) (unknown) (unknown) (no date) (unknown) (unknown) Ondansetron HCl (Ondansetron 4 Mg/2 Ml Inj) 4 mg IV PRN PRN (units unknown) (unknown) (unknown) (no date) (unknown) (unknown) Ondansetron HCl (Ondansetron 4 Mg/2 Ml Inj) 4 mg IV Q4HR PRN (units unknown) (unknown) (unknown) (no date) (unknown) (unknown) Ordered: (units unknown) (unknown) (unknown) (no date) (unknown) (unknown) Orders (units unknown) (unknown) (unknown) (no date) (unknown) (unknown) Osteoarthritis (units unknown) (unknown) (unknown) (no date) (unknown) (unknown) Oxygen Delivery Method Room Air 02/07/23 23:26 (units unknown) (unknown) (unknown) (no date) (unknown) (unknown) Oxygen Delivery Method Room Air (units unknown) (unknown) (unknown) (no date) (unknown) (unknown) PRN Reason: Fever/Mild Pain (1-3) (units unknown) (unknown) (unknown) (no date) (unknown) (unknown) PRN Reason: Nausea And Vomiting (units unknown) (unknown) (unknown) (no date) (unknown) (unknown) PRN Reason: Opiate Reversal (units unknown) (unknown) (unknown) (no date) (unknown) (unknown) PRN Reason: Pain, Mild (1-10 (units unknown) (unknown) (unknown) (no date) (unknown) (unknown) PRN Reason: Pain, Mild (1-3) (units unknown) (unknown) (unknown) (no date) (unknown) (unknown) PRN Reason: Pain, Moderate (4-10 (units unknown) (unknown) (unknown) (no date) (unknown) (unknown) PRN Reason: Pain, Severe (4-10 (units unknown) (unknown) (unknown) (no date) (unknown) (unknown) PRN Reason: Pain, (units unknown) (unknown) (unknown) (no date) (unknown) (unknown) Pain (units unknown) (unknown) (unknown) (no date) (unknown) (unknown) Patient Disposition: Home (units unknown) (unknown) (unknown) (no date) (unknown) (unknown) Patient History (units unknown) (unknown) (unknown) (no date) (unknown) (unknown) Patient: Donna Garcia MR#: [id number] (units unknown) (unknown) (unknown) (no date) (unknown) (unknown) Pertinent positive and negative findings as per HPI (units unknown) (unknown) (unknown) (no date) (unknown) (unknown) Plt Count 196 (150-400) X103/uL (units unknown) (unknown) (unknown) (no date) (unknown) (unknown) Potassium 3.9 (3.4-5.1) mmol/L (units unknown) (unknown) (unknown) (no date) (unknown) (unknown) Prazosin HCl (Prazosin 1 Mg Capsule) 1 mg PO BEDTIME STEFANY (units unknown) (unknown) (unknown) (no date) (unknown) (unknown) Psych: Cooperative, somewhat tangential (units unknown) (unknown) (unknown) (no date) (unknown) (unknown) Pulse Oximetry 96 02/07/23 23:26 (units unknown) (unknown) (unknown) (no date) (unknown) (unknown) Pulse Oximetry 96 (units unknown) (unknown) (unknown) (no date) (unknown) (unknown) Pulse Rate 70 02/07/23 23:26 (units unknown) (unknown) (unknown) (no date) (unknown) (unknown) Pulse Rate 70 (units unknown) (unknown) (unknown) (no date) (unknown) (unknown) Qualifiers: (units unknown) (unknown) (unknown) (no date) (unknown) (unknown) RBBB (right bundle branch block) (units unknown) (unknown) (unknown) (no date) (unknown) (unknown) RBC 3.28 L (4.5-5.9) X106/uL (units unknown) (unknown) (unknown) (no date) (unknown) (unknown) RDW 16.6 H (11.6-14.8) % (units unknown) (unknown) (unknown) (no date) (unknown) (unknown) Related Data (units unknown) (unknown) (unknown) (no date) (unknown) (unknown) Respiratory Rate 16 02/07/23 23:26 (units unknown) (unknown) (unknown) (no date) (unknown) (unknown) Respiratory Rate 16 (units unknown) (unknown) (unknown) (no date) (unknown) (unknown) Respiratory: Lungs are clear to auscultation, no wheezing no rales no rhonchi. (units unknown) (unknown) (unknown) (no date) (unknown) (unknown) Review of Systems (units unknown) (unknown) (unknown) (no date) (unknown) (unknown) STEFANY (units unknown) (unknown) (unknown) (no date) (unknown) (unknown) Seizures (units unknown) (unknown) (unknown) (no date) (unknown) (unknown) Sennosides (Sennosides 8.6 Mg Tablet) 17.2 mg PO BEDTIME STEFANY (units unknown) (unknown) (unknown) (no date) (unknown) (unknown) Sertraline HCl (Sertraline 50 Mg Tablet) 100 mg PO BEDTIME STEFANY (units unknown) (unknown) (unknown) (no date) (unknown) (unknown) Signed By: (units unknown) (unknown) (unknown) (no date) (unknown) (unknown) Sinus rhythm at a rate of 66 (units unknown) (unknown) (unknown) (no date) (unknown) (unknown) Skin: Warm and dry, no rashes (units unknown) (unknown) (unknown) (no date) (unknown) (unknown) Smoking Status: Current every day smoker (units unknown) (unknown) (unknown) (no date) (unknown) (unknown) Smoking Status: Smoker, status unknown (units unknown) (unknown) (unknown) (no date) (unknown) (unknown) Social History (units unknown) (unknown) (unknown) (no date) (unknown) (unknown) Social determinants of health that may influence the patients condition: (units unknown) (unknown) (unknown) (no date) (unknown) (unknown) Sodium 137 (137-145) mmol/L (units unknown) (unknown) (unknown) (no date) (unknown) (unknown) Sodium Chloride (Normal Saline 0.9%) 1,000 mls @ 150 mls/hr IV CONT STEFANY (units unknown) (unknown) (unknown) (no date) (unknown) (unknown) Source: patient and EMS (units unknown) (unknown) (unknown) (no date) (unknown) (unknown) Stated Complaint: ROLL OUT OF BED WITH LEFT HIP PAIN (units unknown) (unknown) (unknown) (no date) (unknown) (unknown) Substance Use Type: marijuana (units unknown) (unknown) (unknown) (no date) (unknown) (unknown) Surgical History (units unknown) (unknown) (unknown) (no date) (unknown) (unknown) TIA (transient ischemic attack) (units unknown) (unknown) (unknown) (no date) (unknown) (unknown) Temperature 98.6 F 02/07/23 23:26 (units unknown) (unknown) (unknown) (no date) (unknown) (unknown) Temperature 98.6 F (units unknown) (unknown) (unknown) (no date) (unknown) (unknown) Time Seen by Provider: 02/07/23 23:54 (units unknown) (unknown) (unknown) (no date) (unknown) (unknown) Total Bilirubin 0.3 (0.2-1.3) mg/dL (units unknown) (unknown) (unknown) (no date) (unknown) (unknown) Total Protein 7.2 (6.3-8.2) g/dL (units unknown) (unknown) (unknown) (no date) (unknown) (unknown) Treatments: Dilaudid, Zofran (units unknown) (unknown) (unknown) (no date) (unknown) (unknown) Troponin I < 0.012 (0.01-0.034) ng/mL (units unknown) (unknown) (unknown) (no date) (unknown) (unknown) Troponin I Stat (units unknown) (unknown) (unknown) (no date) (unknown) (unknown) Vital Signs - 8 hr (units unknown) (unknown) (unknown) (no date) (unknown) (unknown) Vital Signs (units unknown) (unknown) (unknown) (no date) (unknown) (unknown) Vital signs: (units unknown) (unknown) (unknown) (no date) (unknown) (unknown) WBC 6.6 (4.5-11.0) X103/uL (units unknown) (unknown) (unknown) (no date) (unknown) (unknown) XR hip w pel if done LT 2V Stat (units unknown) (unknown) (unknown) (no date) (unknown) (unknown) Xr hip Acute fracture femoral neck on the left, (units unknown) (unknown) (unknown) (no date) (unknown) (unknown) [Embedded Image Not Available] (units unknown) (unknown) (unknown) (no date) (unknown) (unknown) abnormalities (units unknown) (unknown) (unknown) (no date) (unknown) (unknown) acetaminophen 500 mg tablet 1,000 mg PO TID 02/08/23 02/08/23 (units unknown) (unknown) (unknown) (no date) (unknown) (unknown) additional imaging is performed. (units unknown) (unknown) (unknown) (no date) (unknown) (unknown) alcohol intake frequency: 3 or more drinks per day (units unknown) (unknown) (unknown) (no date) (unknown) (unknown) alcohol intake: current (units unknown) (unknown) (unknown) (no date) (unknown) (unknown) anticoagulation (units unknown) (unknown) (unknown) (no date) (unknown) (unknown) anxiety Qualified Code(s): F03.B0 - Unspecified dementia, moderate, without (units unknown) (unknown) (unknown) (no date) (unknown) (unknown) aspirin 81 mg tablet,delayed 81 mg PO DAILY 02/08/23 02/08/23 (units unknown) (unknown) (unknown) (no date) (unknown) (unknown) atorvastatin 20 mg tablet 20 mg PO BEDTIME 02/08/23 02/08/23 (units unknown) (unknown) (unknown) (no date) (unknown) (unknown) behavioral disturbance, psychotic disturbance, mood disturbance, and anxiety (units unknown) (unknown) (unknown) (no date) (unknown) (unknown) cholecalciferol (vitamin D3) 25 1,000 unit PO DAILY 02/08/23 02/08/23 (units unknown) (unknown) (unknown) (no date) (unknown) (unknown) closed fracture (units unknown) (unknown) (unknown) (no date) (unknown) (unknown) complaints on the left side. Right side is unremarkable. (units unknown) (unknown) (unknown) (no date) (unknown) (unknown) diclofenac sodium 1 % topical gel 4 g topical QID 02/08/23 02/08/23 (units unknown) (unknown) (unknown) (no date) (unknown) (unknown) did break his hip and will need surgery. (units unknown) (unknown) (unknown) (no date) (unknown) (unknown) ferrous sulfate 325 mg (65 mg 325 mg PO DAILY 02/08/23 02/08/23 (units unknown) (unknown) (unknown) (no date) (unknown) (unknown) gabapentin 300 mg capsule 300 mg PO DAILY 02/08/23 02/08/23 (units unknown) (unknown) (unknown) (no date) (unknown) (unknown) gabapentin 300 mg capsule 600 mg PO BID 02/08/23 02/08/23 (units unknown) (unknown) (unknown) (no date) (unknown) (unknown) gentleman cooperative slight pain in the left hip with movement otherwise (units unknown) (unknown) (unknown) (no date) (unknown) (unknown) his head. It is unclear if there was a loss consciousness or not. He was (units unknown) (unknown) (unknown) (no date) (unknown) (unknown) his left hip sustaining a left intertrochanteric displaced hip fracture. Care (units unknown) (unknown) (unknown) (no date) (unknown) (unknown) household members: family (units unknown) (unknown) (unknown) (no date) (unknown) (unknown) in a group family home on [facility]. He does have a history of a stroke. (units unknown) (unknown) (unknown) (no date) (unknown) (unknown) iron) tablet,delayed release (units unknown) (unknown) (unknown) (no date) (unknown) (unknown) is reviewed with Dr. Moore. She will consult. Patient is informed that he (units unknown) (unknown) (unknown) (no date) (unknown) (unknown) ischemic changes are appreciated. Appropriate intervals and axis. (units unknown) (unknown) (unknown) (no date) (unknown) (unknown) last seizure approximately 3 years ago. He is mild dementia and currently lives (units unknown) (unknown) (unknown) (no date) (unknown) (unknown) lateral aspect of the left hip. Neurovascularly intact. No knee or ankle (units unknown) (unknown) (unknown) (no date) (unknown) (unknown) levetiracetam 750 mg tablet 750 mg PO BID 10/20/19 02/08/23 (units unknown) (unknown) (unknown) (no date) (unknown) (unknown) mcg (1,000 unit) tablet (units unknown) (unknown) (unknown) (no date) (unknown) (unknown) med list is updated in the chart today (units unknown) (unknown) (unknown) (no date) (unknown) (unknown) melatonin 3 mg tablet 6 mg PO BEDTIME 02/08/23 02/08/23 (units unknown) (unknown) (unknown) (no date) (unknown) (unknown) metoprolol tartrate 25 mg tablet 12.5 mg PO BID 10/20/19 02/08/23 (units unknown) (unknown) (unknown) (no date) (unknown) (unknown) moving he has no pain complaints. Leg is held in slight external rotation with (units unknown) (unknown) (unknown) (no date) (unknown) (unknown) normal MCV (units unknown) (unknown) (unknown) (no date) (unknown) (unknown) normocephalic (units unknown) (unknown) (unknown) (no date) (unknown) (unknown) omeprazole 20 mg capsule,delayed 20 mg PO DAILY 02/08/23 02/08/23 (units unknown) (unknown) (unknown) (no date) (unknown) (unknown) or psychological symptom: without behavioral, psychotic, or mood disturbance or (units unknown) (unknown) (unknown) (no date) (unknown) (unknown) oral powder packet (Miralax) (units unknown) (unknown) (unknown) (no date) (unknown) (unknown) pain. Acute problem uncertain prognosis (units unknown) (unknown) (unknown) (no date) (unknown) (unknown) polyethylene glycol 3350 17 gram 17 g PO BID 02/08/23 02/08/23 (units unknown) (unknown) (unknown) (no date) (unknown) (unknown) prazosin 1 mg capsule 1 mg PO BEDTIME 02/08/23 02/08/23 (units unknown) (unknown) (unknown) (no date) (unknown) (unknown) release (units unknown) (unknown) (unknown) (no date) (unknown) (unknown) sennosides 8.6 mg tablet (senna) 8.6 mg PO BID 02/08/23 02/08/23 (units unknown) (unknown) (unknown) (no date) (unknown) (unknown) sertraline 100 mg tablet 100 mg PO BEDTIME 02/08/23 02/08/23 (units unknown) (unknown) (unknown) (no date) (unknown) (unknown) the knee at 46? for comfort. He is neurovascularly intact. (units unknown) (unknown) (unknown) (no date) (unknown) (unknown) tissue injury, head injury, cervical spine injury (units unknown) (unknown) (unknown) (no date) (unknown) (unknown) tobacco type: cigarettes (units unknown) (unknown) (unknown) (no date) (unknown) (unknown) unable to stand up. Describes no other fevers, cough, chills. When he is not (units unknown) (unknown) (unknown) (no date) (unknown) (unknown) unremarkable exam (units unknown) (unknown) Result panel 134 (unknown) (no date) (unknown) (unknown) (no value) (units unknown) (unknown) (unknown) (no date) (unknown) (unknown) (1) Closed hip fracture: (units unknown) (unknown) (unknown) (no date) (unknown) (unknown) (2) Dementia: (units unknown) (unknown) (unknown) (no date) (unknown) (unknown) (3) Anemia: (units unknown) (unknown) (unknown) (no date) (unknown) (unknown) (Arthritis Pain (diclofenac)) (units unknown) (unknown) (unknown) (no date) (unknown) (unknown) (past 8 hours): (units unknown) (unknown) (unknown) (no date) (unknown) (unknown) 01:05 01:05 05:18 (units unknown) (unknown) (unknown) (no date) (unknown) (unknown) 02:52 02/08/23 (units unknown) (unknown) (unknown) (no date) (unknown) (unknown) 02:53 (units unknown) (unknown) (unknown) (no date) (unknown) (unknown) 04:36 02/08/23 (units unknown) (unknown) (unknown) (no date) (unknown) (unknown) 04:43 (units unknown) (unknown) (unknown) (no date) (unknown) (unknown) 05:50 05:50 05:50 (units unknown) (unknown) (unknown) (no date) (unknown) (unknown) 02/07/23 (units unknown) (unknown) (unknown) (no date) (unknown) (unknown) 02/08/23 05:50 (units unknown) (unknown) (unknown) (no date) (unknown) (unknown) 02/08/23 02/08/23 02/08/23 (units unknown) (unknown) (unknown) (no date) (unknown) (unknown) 02/08/23 (units unknown) (unknown) (unknown) (no date) (unknown) (unknown) 23:26 02/08/23 (units unknown) (unknown) (unknown) (no date) (unknown) (unknown) [id number] (units unknown) (unknown) (unknown) (no date) (unknown) (unknown) ALT 41 (units unknown) (unknown) (unknown) (no date) (unknown) (unknown) ALT (units unknown) (unknown) (unknown) (no date) (unknown) (unknown) AP pelvis and left lateral hip x-ray: (units unknown) (unknown) (unknown) (no date) (unknown) (unknown) APTT 34 (units unknown) (unknown) (unknown) (no date) (unknown) (unknown) APTT (units unknown) (unknown) (unknown) (no date) (unknown) (unknown) AST 36 (units unknown) (unknown) (unknown) (no date) (unknown) (unknown) AST (units unknown) (unknown) (unknown) (no date) (unknown) (unknown) Acute fracture femoral neck on left superimposed moderately severe to severe (units unknown) (unknown) (unknown) (no date) (unknown) (unknown) Age/Sex: 77 / M (units unknown) (unknown) (unknown) (no date) (unknown) (unknown) Albumin 3.9 (units unknown) (unknown) (unknown) (no date) (unknown) (unknown) Albumin (units unknown) (unknown) (unknown) (no date) (unknown) (unknown) Albumin/Globulin Ratio 1.2 (units unknown) (unknown) (unknown) (no date) (unknown) (unknown) Albumin/Globulin Ratio (units unknown) (unknown) (unknown) (no date) (unknown) (unknown) Alkaline Phosphatase 151 H (units unknown) (unknown) (unknown) (no date) (unknown) (unknown) Alkaline Phosphatase (units unknown) (unknown) (unknown) (no date) (unknown) (unknown) Allergies (units unknown) (unknown) (unknown) (no date) (unknown) (unknown) Allergy/AdvReac Type Severity Reaction Status Date / Time (units unknown) (unknown) (unknown) (no date) (unknown) (unknown) Alzheimer's dementia (units unknown) (unknown) (unknown) (no date) (unknown) (unknown) Anxiety (units unknown) (unknown) (unknown) (no date) (unknown) (unknown) Assessment + Plan (units unknown) (unknown) (unknown) (no date) (unknown) (unknown) Assessment and plan (units unknown) (unknown) (unknown) (no date) (unknown) (unknown) BUN 16 (units unknown) (unknown) (unknown) (no date) (unknown) (unknown) BUN 19 (units unknown) (unknown) (unknown) (no date) (unknown) (unknown) BUN/Creatinine Ratio 16.5 (units unknown) (unknown) (unknown) (no date) (unknown) (unknown) BUN/Creatinine Ratio 19.6 (units unknown) (unknown) (unknown) (no date) (unknown) (unknown) Baso # (Auto) 0 (units unknown) (unknown) (unknown) (no date) (unknown) (unknown) Baso % (Auto) 0.2 (units unknown) (unknown) (unknown) (no date) (unknown) (unknown) Baso % (Auto) 0.3 (units unknown) (unknown) (unknown) (no date) (unknown) (unknown) Blood Pressure 118/66 (units unknown) (unknown) (unknown) (no date) (unknown) (unknown) Blood Pressure 131/73 107/56 L (units unknown) (unknown) (unknown) (no date) (unknown) (unknown) Calcium 8.5 (units unknown) (unknown) (unknown) (no date) (unknown) (unknown) Calcium 8.8 (units unknown) (unknown) (unknown) (no date) (unknown) (unknown) Carbon Dioxide 28 (units unknown) (unknown) (unknown) (no date) (unknown) (unknown) Chest pain (units unknown) (unknown) (unknown) (no date) (unknown) (unknown) Chief complaint: Left femoral neck fracture (units unknown) (unknown) (unknown) (no date) (unknown) (unknown) Chloride 104 (units unknown) (unknown) (unknown) (no date) (unknown) (unknown) Creatinine 0.97 (units unknown) (unknown) (unknown) (no date) (unknown) (unknown) : 1945 Acct:[id number] (units unknown) (unknown) (unknown) (no date) (unknown) (unknown) Date Patient Seen: 02/08/23 (units unknown) (unknown) (unknown) (no date) (unknown) (unknown) Date of Onset of Symptoms: 02/07/23 (units unknown) (unknown) (unknown) (no date) (unknown) (unknown) Date of Service: 02/08/23 (units unknown) (unknown) (unknown) (no date) (unknown) (unknown) Deep Vein Thrombosis/Pulmonary Embolism Present on Admission: No (units unknown) (unknown) (unknown) (no date) (unknown) (unknown) Dementia behavioral or psychological symptom: without behavioral, (units unknown) (unknown) (unknown) (no date) (unknown) (unknown) Depression (units unknown) (unknown) (unknown) (no date) (unknown) (unknown) Displaced left femoral neck fracture underlying bilateral hip arthritis (units unknown) (unknown) (unknown) (no date) (unknown) (unknown) EMS to the hospital. This morning on my evaluation he is quite somnolent and (units unknown) (unknown) (unknown) (no date) (unknown) (unknown) Easy bruisability (units unknown) (unknown) (unknown) (no date) (unknown) (unknown) Encounter type: initial encounter Laterality: left Qualified Code(s): (units unknown) (unknown) (unknown) (no date) (unknown) (unknown) Eos # (Auto) 100 (units unknown) (unknown) (unknown) (no date) (unknown) (unknown) Eos % (Auto) 1.1 L (units unknown) (unknown) (unknown) (no date) (unknown) (unknown) Epilepsy (units unknown) (unknown) (unknown) (no date) (unknown) (unknown) Estimated GFR > 60 (units unknown) (unknown) (unknown) (no date) (unknown) (unknown) Exam Narrative: (units unknown) (unknown) (unknown) (no date) (unknown) (unknown) Exam (units unknown) (unknown) (unknown) (no date) (unknown) (unknown) General exam the patient is lying in bed. Thin male. Responds to voice and (units unknown) (unknown) (unknown) (no date) (unknown) (unknown) Globulin 3.3 (units unknown) (unknown) (unknown) (no date) (unknown) (unknown) Globulin (units unknown) (unknown) (unknown) (no date) (unknown) (unknown) Glucose 103 (units unknown) (unknown) (unknown) (no date) (unknown) (unknown) Glucose 111 H (units unknown) (unknown) (unknown) (no date) (unknown) (unknown) Hct 30.2 L (units unknown) (unknown) (unknown) (no date) (unknown) (unknown) Hct 32.3 L (units unknown) (unknown) (unknown) (no date) (unknown) (unknown) He would a fall sometime last evening was unable to ambulate. He was brought by (units unknown) (unknown) (unknown) (no date) (unknown) (unknown) Heart burn (units unknown) (unknown) (unknown) (no date) (unknown) (unknown) Hgb 10.4 L (units unknown) (unknown) (unknown) (no date) (unknown) (unknown) Hgb 11.1 L (units unknown) (unknown) (unknown) (no date) (unknown) (unknown) High-level medical decision-making. Serous fracture requiring hospitalization (units unknown) (unknown) (unknown) (no date) (unknown) (unknown) History + Physical Report (units unknown) (unknown) (unknown) (no date) (unknown) (unknown) History of Present Illness (units unknown) (unknown) (unknown) (no date) (unknown) (unknown) Home Medications and Allergies (units unknown) (unknown) (unknown) (no date) (unknown) (unknown) Home Medications (units unknown) (unknown) (unknown) (no date) (unknown) (unknown) INR 1.2 (units unknown) (unknown) (unknown) (no date) (unknown) (unknown) INR (units unknown) (unknown) (unknown) (no date) (unknown) (unknown) Imaging (units unknown) (unknown) (unknown) (no date) (unknown) (unknown) [address] [id number] (units unknown) (unknown) (unknown) (no date) (unknown) (unknown) Laboratory Results - last 24 hr (units unknown) (unknown) (unknown) (no date) (unknown) (unknown) Labs (units unknown) (unknown) (unknown) (no date) (unknown) (unknown) Labs: (units unknown) (unknown) (unknown) (no date) (unknown) (unknown) Lymph # (Auto) 1600 (units unknown) (unknown) (unknown) (no date) (unknown) (unknown) Lymph # (Auto) 1700 (units unknown) (unknown) (unknown) (no date) (unknown) (unknown) Lymph % (Auto) 23.4 L (units unknown) (unknown) (unknown) (no date) (unknown) (unknown) Lymph % (Auto) 29.1 (units unknown) (unknown) (unknown) (no date) (unknown) (unknown) MCH 33.5 (units unknown) (unknown) (unknown) (no date) (unknown) (unknown) MCH 33.7 (units unknown) (unknown) (unknown) (no date) (unknown) (unknown) MCHC 34.2 (units unknown) (unknown) (unknown) (no date) (unknown) (unknown) MCHC 34.5 (units unknown) (unknown) (unknown) (no date) (unknown) (unknown) MCV 97.2 (units unknown) (unknown) (unknown) (no date) (unknown) (unknown) MCV 98.5 (units unknown) (unknown) (unknown) (no date) (unknown) (unknown) Medical History (units unknown) (unknown) (unknown) (no date) (unknown) (unknown) Medication Instructions Recorded Confirmed Type (units unknown) (unknown) (unknown) (no date) (unknown) (unknown) Meds (units unknown) (unknown) (unknown) (no date) (unknown) (unknown) [place] # (Auto) 500 (units unknown) (unknown) (unknown) (no date) (unknown) (unknown) [place] # (Auto) 600 (units unknown) (unknown) (unknown) (no date) (unknown) (unknown) [place] % (Auto) 10.0 (units unknown) (unknown) (unknown) (no date) (unknown) (unknown) [place] % (Auto) 7.6 (units unknown) (unknown) (unknown) (no date) (unknown) (unknown) My impression: (units unknown) (unknown) (unknown) (no date) (unknown) (unknown) Narrative (units unknown) (unknown) (unknown) (no date) (unknown) (unknown) Narrative: (units unknown) (unknown) (unknown) (no date) (unknown) (unknown) Neck pain (units unknown) (unknown) (unknown) (no date) (unknown) (unknown) Neut # (Auto) 3500 (units unknown) (unknown) (unknown) (no date) (unknown) (unknown) Neut # (Auto) 4500 (units unknown) (unknown) (unknown) (no date) (unknown) (unknown) Neut % (Auto) 59.6 (units unknown) (unknown) (unknown) (no date) (unknown) (unknown) Neut % (Auto) 67.6 (units unknown) (unknown) (unknown) (no date) (unknown) (unknown) No Known Drug Allergies Allergy Verified 11/12/20 08:34 (units unknown) (unknown) (unknown) (no date) (unknown) (unknown) No history of previous surgery (units unknown) (unknown) (unknown) (no date) (unknown) (unknown) Numbness and tingling (units unknown) (unknown) (unknown) (no date) (unknown) (unknown) Objective (units unknown) (unknown) (unknown) (no date) (unknown) (unknown) Osteoarthritis (units unknown) (unknown) (unknown) (no date) (unknown) (unknown) Oxygen Delivery Method Room Air Room Air (units unknown) (unknown) (unknown) (no date) (unknown) (unknown) Oxygen Delivery Method Room Air (units unknown) (unknown) (unknown) (no date) (unknown) (unknown) PFSH (units unknown) (unknown) (unknown) (no date) (unknown) (unknown) PT 13.8 H (units unknown) (unknown) (unknown) (no date) (unknown) (unknown) PT (units unknown) (unknown) (unknown) (no date) (unknown) (unknown) Pain (units unknown) (unknown) (unknown) (no date) (unknown) (unknown) Patient has a closed displaced left femoral neck fracture. He is underlying (units unknown) (unknown) (unknown) (no date) (unknown) (unknown) Patient is a 77-year-old male with Alzheimer's dementia lives in a snf. (units unknown) (unknown) (unknown) (no date) (unknown) (unknown) Patient: Donna Garcia MR#: [id number] (units unknown) (unknown) (unknown) (no date) (unknown) (unknown) Plan (units unknown) (unknown) (unknown) (no date) (unknown) (unknown) Plt Count 186 (units unknown) (unknown) (unknown) (no date) (unknown) (unknown) Plt Count 196 (units unknown) (unknown) (unknown) (no date) (unknown) (unknown) Potassium 3.9 (units unknown) (unknown) (unknown) (no date) (unknown) (unknown) Provider: Mariaa Soares MD (units unknown) (unknown) (unknown) (no date) (unknown) (unknown) Pulse Oximetry 96 93 (units unknown) (unknown) (unknown) (no date) (unknown) (unknown) Pulse Oximetry 97 (units unknown) (unknown) (unknown) (no date) (unknown) (unknown) Pulse Rate 70 66 (units unknown) (unknown) (unknown) (no date) (unknown) (unknown) Pulse Rate 70 (units unknown) (unknown) (unknown) (no date) (unknown) (unknown) Qualifiers: (units unknown) (unknown) (unknown) (no date) (unknown) (unknown) Quality (units unknown) (unknown) (unknown) (no date) (unknown) (unknown) RBBB (right bundle branch block) (units unknown) (unknown) (unknown) (no date) (unknown) (unknown) RBC 3.11 L (units unknown) (unknown) (unknown) (no date) (unknown) (unknown) RBC 3.28 L (units unknown) (unknown) (unknown) (no date) (unknown) (unknown) RDW 16.6 H (units unknown) (unknown) (unknown) (no date) (unknown) (unknown) RDW 17.0 H (units unknown) (unknown) (unknown) (no date) (unknown) (unknown) ROS: Yes unobtainable due to mental condition (units unknown) (unknown) (unknown) (no date) (unknown) (unknown) Radiologist's impression: (units unknown) (unknown) (unknown) (no date) (unknown) (unknown) Respiratory Rate 16 18 (units unknown) (unknown) (unknown) (no date) (unknown) (unknown) Respiratory Rate 19 (units unknown) (unknown) (unknown) (no date) (unknown) (unknown) Review of Systems (units unknown) (unknown) (unknown) (no date) (unknown) (unknown) S72.002A - Fracture of unspecified part of neck of left femur, initial encounter (units unknown) (unknown) (unknown) (no date) (unknown) (unknown) Seizures (units unknown) (unknown) (unknown) (no date) (unknown) (unknown) Signed By: (units unknown) (unknown) (unknown) (no date) (unknown) (unknown) Smoking Status: Smoker, status unknown (units unknown) (unknown) (unknown) (no date) (unknown) (unknown) Social History (units unknown) (unknown) (unknown) (no date) (unknown) (unknown) Sodium 137 (units unknown) (unknown) (unknown) (no date) (unknown) (unknown) Sodium 138 (units unknown) (unknown) (unknown) (no date) (unknown) (unknown) Status: Acute (units unknown) (unknown) (unknown) (no date) (unknown) (unknown) Surgical History (units unknown) (unknown) (unknown) (no date) (unknown) (unknown) TIA (transient ischemic attack) (units unknown) (unknown) (unknown) (no date) (unknown) (unknown) Temperature 97.7 F (units unknown) (unknown) (unknown) (no date) (unknown) (unknown) Temperature 98.6 F (units unknown) (unknown) (unknown) (no date) (unknown) (unknown) Tenderness left hip. Palpable dorsalis pedis pulses but I can not get him to (units unknown) (unknown) (unknown) (no date) (unknown) (unknown) The patient is already starting with anemia on hospital admission. Will use (units unknown) (unknown) (unknown) (no date) (unknown) (unknown) There are significant risks with this injury and with surgery including heart (units unknown) (unknown) (unknown) (no date) (unknown) (unknown) Time Patient Seen: 07:25 (units unknown) (unknown) (unknown) (no date) (unknown) (unknown) Time Spent With Patient (units unknown) (unknown) (unknown) (no date) (unknown) (unknown) Time with patient: 50 to 69 minutes with 50% spent counseling/coordinat ing care (units unknown) (unknown) (unknown) (no date) (unknown) (unknown) Total Bilirubin 0.3 (units unknown) (unknown) (unknown) (no date) (unknown) (unknown) Total Bilirubin (units unknown) (unknown) (unknown) (no date) (unknown) (unknown) Total Protein 7.2 (units unknown) (unknown) (unknown) (no date) (unknown) (unknown) Total Protein (units unknown) (unknown) (unknown) (no date) (unknown) (unknown) Troponin I < 0.012 (units unknown) (unknown) (unknown) (no date) (unknown) (unknown) Troponin I (units unknown) (unknown) (unknown) (no date) (unknown) (unknown) Ur Culture Indicated? Cult not indicated (units unknown) (unknown) (unknown) (no date) (unknown) (unknown) Ur Culture Indicated? (units unknown) (unknown) (unknown) (no date) (unknown) (unknown) Ur Leukocyte Esterase Negative (units unknown) (unknown) (unknown) (no date) (unknown) (unknown) Ur Leukocyte Esterase (units unknown) (unknown) (unknown) (no date) (unknown) (unknown) Ur Specific [place] 1.010 (units unknown) (unknown) (unknown) (no date) (unknown) (unknown) Ur Specific [place] (units unknown) (unknown) (unknown) (no date) (unknown) (unknown) Ur Squamous Epith Cells None seen (units unknown) (unknown) (unknown) (no date) (unknown) (unknown) Ur Squamous Epith Cells (units unknown) (unknown) (unknown) (no date) (unknown) (unknown) Urine Appearance Clear (units unknown) (unknown) (unknown) (no date) (unknown) (unknown) Urine Appearance (units unknown) (unknown) (unknown) (no date) (unknown) (unknown) Urine Bacteria None seen (units unknown) (unknown) (unknown) (no date) (unknown) (unknown) Urine Bacteria (units unknown) (unknown) (unknown) (no date) (unknown) (unknown) Urine Bilirubin Negative (units unknown) (unknown) (unknown) (no date) (unknown) (unknown) Urine Bilirubin (units unknown) (unknown) (unknown) (no date) (unknown) (unknown) Urine Color Yellow (units unknown) (unknown) (unknown) (no date) (unknown) (unknown) Urine Color (units unknown) (unknown) (unknown) (no date) (unknown) (unknown) Urine Glucose (UA) Negative (units unknown) (unknown) (unknown) (no date) (unknown) (unknown) Urine Glucose (UA) (units unknown) (unknown) (unknown) (no date) (unknown) (unknown) Urine Ketones Trace H (units unknown) (unknown) (unknown) (no date) (unknown) (unknown) Urine Ketones (units unknown) (unknown) (unknown) (no date) (unknown) (unknown) Urine Nitrate Negative (units unknown) (unknown) (unknown) (no date) (unknown) (unknown) Urine Nitrate (units unknown) (unknown) (unknown) (no date) (unknown) (unknown) Urine Occult Blood Negative (units unknown) (unknown) (unknown) (no date) (unknown) (unknown) Urine Occult Blood (units unknown) (unknown) (unknown) (no date) (unknown) (unknown) Urine Protein Negative (units unknown) (unknown) (unknown) (no date) (unknown) (unknown) Urine Protein (units unknown) (unknown) (unknown) (no date) (unknown) (unknown) Urine RBC None seen (units unknown) (unknown) (unknown) (no date) (unknown) (unknown) Urine RBC (units unknown) (unknown) (unknown) (no date) (unknown) (unknown) Urine Urobilinogen 0.2 (units unknown) (unknown) (unknown) (no date) (unknown) (unknown) Urine Urobilinogen (units unknown) (unknown) (unknown) (no date) (unknown) (unknown) Urine WBC None seen (units unknown) (unknown) (unknown) (no date) (unknown) (unknown) Urine WBC (units unknown) (unknown) (unknown) (no date) (unknown) (unknown) Urine pH 6.0 (units unknown) (unknown) (unknown) (no date) (unknown) (unknown) Urine pH (units unknown) (unknown) (unknown) (no date) (unknown) (unknown) VTE (units unknown) (unknown) (unknown) (no date) (unknown) (unknown) Vital Signs (units unknown) (unknown) (unknown) (no date) (unknown) (unknown) WBC 5.8 (units unknown) (unknown) (unknown) (no date) (unknown) (unknown) WBC 6.6 (units unknown) (unknown) (unknown) (no date) (unknown) (unknown) [Embedded Image Not Available] (units unknown) (unknown) (unknown) (no date) (unknown) (unknown) acetaminophen 500 mg tablet 1,000 mg PO TID 02/08/23 02/08/23 History (units unknown) (unknown) (unknown) (no date) (unknown) (unknown) alcohol intake: current (units unknown) (unknown) (unknown) (no date) (unknown) (unknown) anemia (units unknown) (unknown) (unknown) (no date) (unknown) (unknown) arthritis otherwise personal medical history is difficult. Remainder of medical (units unknown) (unknown) (unknown) (no date) (unknown) (unknown) arthritis. And diagnosis of Alzheimer's dementia. He is indicated for a (units unknown) (unknown) (unknown) (no date) (unknown) (unknown) aspirin 81 mg tablet,delayed 81 mg PO DAILY 02/08/23 02/08/23 History (units unknown) (unknown) (unknown) (no date) (unknown) (unknown) atorvastatin 20 mg tablet 20 mg PO BEDTIME 02/08/23 02/08/23 History (units unknown) (unknown) (unknown) (no date) (unknown) (unknown) attack stroke dislocation pain fracture, blood clot, , and blood loss (units unknown) (unknown) (unknown) (no date) (unknown) (unknown) bilateral hip joint osteoarthritis (units unknown) (unknown) (unknown) (no date) (unknown) (unknown) cemented partial hip replacement, hemiarthroplasty of the left hip. We will (units unknown) (unknown) (unknown) (no date) (unknown) (unknown) cholecalciferol (vitamin D3) 25 1,000 unit PO DAILY 02/08/23 02/08/23 History (units unknown) (unknown) (unknown) (no date) (unknown) (unknown) clear to auscultation bilaterally (units unknown) (unknown) (unknown) (no date) (unknown) (unknown) deformities. Calves are soft bilaterally. Heart regular rate and rhythm lungs (units unknown) (unknown) (unknown) (no date) (unknown) (unknown) demonstrate dorsiflexion of the ankles on either side this morning. Pre more he (units unknown) (unknown) (unknown) (no date) (unknown) (unknown) diclofenac sodium 1 % topical gel 4 g topical QID 02/08/23 02/08/23 History (units unknown) (unknown) (unknown) (no date) (unknown) (unknown) disturbance, and anxiety (units unknown) (unknown) (unknown) (no date) (unknown) (unknown) early range of motion and ambulation reduce the risks of prolonged immobility. (units unknown) (unknown) (unknown) (no date) (unknown) (unknown) expectation would be nonambulatory. Discussed the benefits of surgery to allow (units unknown) (unknown) (unknown) (no date) (unknown) (unknown) extremities wiggles hand and fingers bilaterally and toes. Does not lift arms. (units unknown) (unknown) (unknown) (no date) (unknown) (unknown) ferrous sulfate 325 mg (65 mg 325 mg PO DAILY 02/08/23 02/08/23 History (units unknown) (unknown) (unknown) (no date) (unknown) (unknown) for closed fracture (units unknown) (unknown) (unknown) (no date) (unknown) (unknown) gabapentin 300 mg capsule 300 mg PO DAILY 02/08/23 02/08/23 History (units unknown) (unknown) (unknown) (no date) (unknown) (unknown) gabapentin 300 mg capsule 600 mg PO BID 02/08/23 02/08/23 History (units unknown) (unknown) (unknown) (no date) (unknown) (unknown) history obtained from chart and family. (units unknown) (unknown) (unknown) (no date) (unknown) (unknown) household members: family (units unknown) (unknown) (unknown) (no date) (unknown) (unknown) immediate perioperative and 30 day in 1 year mortality. However due to the (units unknown) (unknown) (unknown) (no date) (unknown) (unknown) iron) tablet,delayed release (units unknown) (unknown) (unknown) (no date) (unknown) (unknown) levetiracetam 750 mg tablet 750 mg PO BID 10/20/19 02/08/23 History (units unknown) (unknown) (unknown) (no date) (unknown) (unknown) mcg (1,000 unit) tablet (units unknown) (unknown) (unknown) (no date) (unknown) (unknown) melatonin 3 mg tablet 6 mg PO BEDTIME 02/08/23 02/08/23 History (units unknown) (unknown) (unknown) (no date) (unknown) (unknown) metoprolol tartrate 25 mg tablet 12.5 mg PO BID 10/20/19 02/08/23 History (units unknown) (unknown) (unknown) (no date) (unknown) (unknown) moderate, without behavioral disturbance, psychotic disturbance, mood (units unknown) (unknown) (unknown) (no date) (unknown) (unknown) morbidity of non treated hip fractures the benefits of surgery outweigh the (units unknown) (unknown) (unknown) (no date) (unknown) (unknown) need to discuss with power of state's attorney. Discussed without surgical treatment (units unknown) (unknown) (unknown) (no date) (unknown) (unknown) omeprazole 20 mg capsule,delayed 20 mg PO DAILY 02/08/23 02/08/23 History (units unknown) (unknown) (unknown) (no date) (unknown) (unknown) oral powder packet (Miralax) (units unknown) (unknown) (unknown) (no date) (unknown) (unknown) polyethylene glycol 3350 17 gram 17 g PO BID 02/08/23 02/08/23 History (units unknown) (unknown) (unknown) (no date) (unknown) (unknown) power of state's attorney is daughter Saranya. When asked if he ambulates states he (units unknown) (unknown) (unknown) (no date) (unknown) (unknown) prazosin 1 mg capsule 1 mg PO BEDTIME 02/08/23 02/08/23 History (units unknown) (unknown) (unknown) (no date) (unknown) (unknown) psychotic, or mood disturbance or anxiety Dementia severity: moderate Dementia (units unknown) (unknown) (unknown) (no date) (unknown) (unknown) pushes what is assumed to be a walker around. He is a history of bilateral hip (units unknown) (unknown) (unknown) (no date) (unknown) (unknown) release (units unknown) (unknown) (unknown) (no date) (unknown) (unknown) risks of significant comorbidities and with this injury both with (units unknown) (unknown) (unknown) (no date) (unknown) (unknown) risks. (units unknown) (unknown) (unknown) (no date) (unknown) (unknown) sennosides 8.6 mg tablet (senna) 8.6 mg PO BID 02/08/23 02/08/23 History (units unknown) (unknown) (unknown) (no date) (unknown) (unknown) sertraline 100 mg tablet 100 mg PO BEDTIME 02/08/23 02/08/23 History (units unknown) (unknown) (unknown) (no date) (unknown) (unknown) shortened externally rotated left lower extremity. No other obvious (units unknown) (unknown) (unknown) (no date) (unknown) (unknown) speaks but in a whisper that is difficult to hear. When asked to move (units unknown) (unknown) (unknown) (no date) (unknown) (unknown) speaks very softly very difficult to interpret answers to questions. Medical (units unknown) (unknown) (unknown) (no date) (unknown) (unknown) symptomatic postoperatively. (units unknown) (unknown) (unknown) (no date) (unknown) (unknown) tranexamic acid to help reduce blood loss but may require transfusion if (units unknown) (unknown) (unknown) (no date) (unknown) (unknown) type: unspecified type Qualified Code(s): F03.B0 - Unspecified dementia, (units unknown) (unknown) (unknown) (no date) (unknown) (unknown) was moving most extremities more last night prior to pain medication. Slight (units unknown) (unknown) Result panel 135 (unknown) (no date) (unknown) (unknown) (no value) (units unknown) (unknown) (unknown) (no date) (unknown) (unknown) (1) Closed hip fracture: (units unknown) (unknown) (unknown) (no date) (unknown) (unknown) (2) Dementia: (units unknown) (unknown) (unknown) (no date) (unknown) (unknown) (3) Anemia: (units unknown) (unknown) (unknown) (no date) (unknown) (unknown) (Arthritis Pain (diclofenac)) (units unknown) (unknown) (unknown) (no date) (unknown) (unknown) (past 8 hours): (units unknown) (unknown) (unknown) (no date) (unknown) (unknown) 01:05 01:05 05:18 (units unknown) (unknown) (unknown) (no date) (unknown) (unknown) 02:52 02/08/23 (units unknown) (unknown) (unknown) (no date) (unknown) (unknown) 02:53 (units unknown) (unknown) (unknown) (no date) (unknown) (unknown) 04:36 02/08/23 (units unknown) (unknown) (unknown) (no date) (unknown) (unknown) 04:43 (units unknown) (unknown) (unknown) (no date) (unknown) (unknown) 05:50 05:50 05:50 (units unknown) (unknown) (unknown) (no date) (unknown) (unknown) 02/07/23 (units unknown) (unknown) (unknown) (no date) (unknown) (unknown) 02/08/23 05:50 (units unknown) (unknown) (unknown) (no date) (unknown) (unknown) 02/08/23 02/08/23 02/08/23 (units unknown) (unknown) (unknown) (no date) (unknown) (unknown) 02/08/23 0822 (units unknown) (unknown) (unknown) (no date) (unknown) (unknown) 02/08/23 (units unknown) (unknown) (unknown) (no date) (unknown) (unknown) 23:26 02/08/23 (units unknown) (unknown) (unknown) (no date) (unknown) (unknown) [id number] (units unknown) (unknown) (unknown) (no date) (unknown) (unknown) ALT 41 (units unknown) (unknown) (unknown) (no date) (unknown) (unknown) ALT (units unknown) (unknown) (unknown) (no date) (unknown) (unknown) AP pelvis and left lateral hip x-ray: (units unknown) (unknown) (unknown) (no date) (unknown) (unknown) APTT 34 (units unknown) (unknown) (unknown) (no date) (unknown) (unknown) APTT (units unknown) (unknown) (unknown) (no date) (unknown) (unknown) AST 36 (units unknown) (unknown) (unknown) (no date) (unknown) (unknown) AST (units unknown) (unknown) (unknown) (no date) (unknown) (unknown) Acute fracture femoral neck on left superimposed moderately severe to severe (units unknown) (unknown) (unknown) (no date) (unknown) (unknown) Age/Sex: 77 / M (units unknown) (unknown) (unknown) (no date) (unknown) (unknown) Albumin 3.9 (units unknown) (unknown) (unknown) (no date) (unknown) (unknown) Albumin (units unknown) (unknown) (unknown) (no date) (unknown) (unknown) Albumin/Globulin Ratio 1.2 (units unknown) (unknown) (unknown) (no date) (unknown) (unknown) Albumin/Globulin Ratio (units unknown) (unknown) (unknown) (no date) (unknown) (unknown) Alkaline Phosphatase 151 H (units unknown) (unknown) (unknown) (no date) (unknown) (unknown) Alkaline Phosphatase (units unknown) (unknown) (unknown) (no date) (unknown) (unknown) Allergies (units unknown) (unknown) (unknown) (no date) (unknown) (unknown) Allergy/AdvReac Type Severity Reaction Status Date / Time (units unknown) (unknown) (unknown) (no date) (unknown) (unknown) Alzheimer's dementia (units unknown) (unknown) (unknown) (no date) (unknown) (unknown) Anxiety (units unknown) (unknown) (unknown) (no date) (unknown) (unknown) Assessment + Plan (units unknown) (unknown) (unknown) (no date) (unknown) (unknown) Assessment and plan (units unknown) (unknown) (unknown) (no date) (unknown) (unknown) BUN 16 (units unknown) (unknown) (unknown) (no date) (unknown) (unknown) BUN 19 (units unknown) (unknown) (unknown) (no date) (unknown) (unknown) BUN/Creatinine Ratio 16.5 (units unknown) (unknown) (unknown) (no date) (unknown) (unknown) BUN/Creatinine Ratio 19.6 (units unknown) (unknown) (unknown) (no date) (unknown) (unknown) Baso # (Auto) 0 (units unknown) (unknown) (unknown) (no date) (unknown) (unknown) Baso % (Auto) 0.2 (units unknown) (unknown) (unknown) (no date) (unknown) (unknown) Baso % (Auto) 0.3 (units unknown) (unknown) (unknown) (no date) (unknown) (unknown) Blood Pressure 118/66 (units unknown) (unknown) (unknown) (no date) (unknown) (unknown) Blood Pressure 131/73 107/56 L (units unknown) (unknown) (unknown) (no date) (unknown) (unknown) Calcium 8.5 (units unknown) (unknown) (unknown) (no date) (unknown) (unknown) Calcium 8.8 (units unknown) (unknown) (unknown) (no date) (unknown) (unknown) Carbon Dioxide 28 (units unknown) (unknown) (unknown) (no date) (unknown) (unknown) Chest pain (units unknown) (unknown) (unknown) (no date) (unknown) (unknown) Chief complaint: Left femoral neck fracture (units unknown) (unknown) (unknown) (no date) (unknown) (unknown) Chloride 104 (units unknown) (unknown) (unknown) (no date) (unknown) (unknown) Creatinine 0.97 (units unknown) (unknown) (unknown) (no date) (unknown) (unknown) : 1945 Acct:[id number] (units unknown) (unknown) (unknown) (no date) (unknown) (unknown) Date Patient Seen: 02/08/23 (units unknown) (unknown) (unknown) (no date) (unknown) (unknown) Date of Onset of Symptoms: 02/07/23 (units unknown) (unknown) (unknown) (no date) (unknown) (unknown) Date of Service: 02/08/23 (units unknown) (unknown) (unknown) (no date) (unknown) (unknown) Deep Vein Thrombosis/Pulmonary Embolism Present on Admission: No (units unknown) (unknown) (unknown) (no date) (unknown) (unknown) Dementia behavioral or psychological symptom: without behavioral, (units unknown) (unknown) (unknown) (no date) (unknown) (unknown) Depression (units unknown) (unknown) (unknown) (no date) (unknown) (unknown) Displaced left femoral neck fracture underlying bilateral hip arthritis (units unknown) (unknown) (unknown) (no date) (unknown) (unknown) EMS to the hospital. This morning on my evaluation he is quite somnolent and (units unknown) (unknown) (unknown) (no date) (unknown) (unknown) Easy bruisability (units unknown) (unknown) (unknown) (no date) (unknown) (unknown) Encounter type: initial encounter Laterality: left Qualified Code(s): (units unknown) (unknown) (unknown) (no date) (unknown) (unknown) Eos # (Auto) 100 (units unknown) (unknown) (unknown) (no date) (unknown) (unknown) Eos % (Auto) 1.1 L (units unknown) (unknown) (unknown) (no date) (unknown) (unknown) Epilepsy (units unknown) (unknown) (unknown) (no date) (unknown) (unknown) Estimated GFR > 60 (units unknown) (unknown) (unknown) (no date) (unknown) (unknown) Exam Narrative: (units unknown) (unknown) (unknown) (no date) (unknown) (unknown) Exam (units unknown) (unknown) (unknown) (no date) (unknown) (unknown) General exam the patient is lying in bed. Thin male. Responds to voice and (units unknown) (unknown) (unknown) (no date) (unknown) (unknown) Globulin 3.3 (units unknown) (unknown) (unknown) (no date) (unknown) (unknown) Globulin (units unknown) (unknown) (unknown) (no date) (unknown) (unknown) Glucose 103 (units unknown) (unknown) (unknown) (no date) (unknown) (unknown) Glucose 111 H (units unknown) (unknown) (unknown) (no date) (unknown) (unknown) Hct 30.2 L (units unknown) (unknown) (unknown) (no date) (unknown) (unknown) Hct 32.3 L (units unknown) (unknown) (unknown) (no date) (unknown) (unknown) He would a fall sometime last evening was unable to ambulate. He was brought by (units unknown) (unknown) (unknown) (no date) (unknown) (unknown) Heart burn (units unknown) (unknown) (unknown) (no date) (unknown) (unknown) Hgb 10.4 L (units unknown) (unknown) (unknown) (no date) (unknown) (unknown) Hgb 11.1 L (units unknown) (unknown) (unknown) (no date) (unknown) (unknown) High-level medical decision-making. Serous fracture requiring hospitalization (units unknown) (unknown) (unknown) (no date) (unknown) (unknown) History + Physical Report (units unknown) (unknown) (unknown) (no date) (unknown) (unknown) History of Present Illness (units unknown) (unknown) (unknown) (no date) (unknown) (unknown) Home Medications and Allergies (units unknown) (unknown) (unknown) (no date) (unknown) (unknown) Home Medications (units unknown) (unknown) (unknown) (no date) (unknown) (unknown) INR 1.2 (units unknown) (unknown) (unknown) (no date) (unknown) (unknown) INR (units unknown) (unknown) (unknown) (no date) (unknown) (unknown) Imaging (units unknown) (unknown) (unknown) (no date) (unknown) (unknown) [address] [address] (units unknown) (unknown) (unknown) (no date) (unknown) (unknown) Laboratory Results - last 24 hr (units unknown) (unknown) (unknown) (no date) (unknown) (unknown) Labs (units unknown) (unknown) (unknown) (no date) (unknown) (unknown) Labs: (units unknown) (unknown) (unknown) (no date) (unknown) (unknown) Lymph # (Auto) 1600 (units unknown) (unknown) (unknown) (no date) (unknown) (unknown) Lymph # (Auto) 1700 (units unknown) (unknown) (unknown) (no date) (unknown) (unknown) Lymph % (Auto) 23.4 L (units unknown) (unknown) (unknown) (no date) (unknown) (unknown) Lymph % (Auto) 29.1 (units unknown) (unknown) (unknown) (no date) (unknown) (unknown) MCH 33.5 (units unknown) (unknown) (unknown) (no date) (unknown) (unknown) MCH 33.7 (units unknown) (unknown) (unknown) (no date) (unknown) (unknown) MCHC 34.2 (units unknown) (unknown) (unknown) (no date) (unknown) (unknown) MCHC 34.5 (units unknown) (unknown) (unknown) (no date) (unknown) (unknown) MCV 97.2 (units unknown) (unknown) (unknown) (no date) (unknown) (unknown) MCV 98.5 (units unknown) (unknown) (unknown) (no date) (unknown) (unknown) Medical History (units unknown) (unknown) (unknown) (no date) (unknown) (unknown) Medication Instructions Recorded Confirmed Type (units unknown) (unknown) (unknown) (no date) (unknown) (unknown) Meds (units unknown) (unknown) (unknown) (no date) (unknown) (unknown) Aurora # (Auto) 500 (units unknown) (unknown) (unknown) (no date) (unknown) (unknown) Aurora # (Auto) 600 (units unknown) (unknown) (unknown) (no date) (unknown) (unknown) Aurora % (Auto) 10.0 (units unknown) (unknown) (unknown) (no date) (unknown) (unknown) Aurora % (Auto) 7.6 (units unknown) (unknown) (unknown) (no date) (unknown) (unknown) My impression: (units unknown) (unknown) (unknown) (no date) (unknown) (unknown) Narrative (units unknown) (unknown) (unknown) (no date) (unknown) (unknown) Narrative: (units unknown) (unknown) (unknown) (no date) (unknown) (unknown) Neck pain (units unknown) (unknown) (unknown) (no date) (unknown) (unknown) Neut # (Auto) 3500 (units unknown) (unknown) (unknown) (no date) (unknown) (unknown) Neut # (Auto) 4500 (units unknown) (unknown) (unknown) (no date) (unknown) (unknown) Neut % (Auto) 59.6 (units unknown) (unknown) (unknown) (no date) (unknown) (unknown) Neut % (Auto) 67.6 (units unknown) (unknown) (unknown) (no date) (unknown) (unknown) No Known Drug Allergies Allergy Verified 11/12/20 08:34 (units unknown) (unknown) (unknown) (no date) (unknown) (unknown) No history of previous surgery (units unknown) (unknown) (unknown) (no date) (unknown) (unknown) Numbness and tingling (units unknown) (unknown) (unknown) (no date) (unknown) (unknown) Objective (units unknown) (unknown) (unknown) (no date) (unknown) (unknown) Osteoarthritis (units unknown) (unknown) (unknown) (no date) (unknown) (unknown) Oxygen Delivery Method Room Air Room Air (units unknown) (unknown) (unknown) (no date) (unknown) (unknown) Oxygen Delivery Method Room Air (units unknown) (unknown) (unknown) (no date) (unknown) (unknown) PFSH (units unknown) (unknown) (unknown) (no date) (unknown) (unknown) PT 13.8 H (units unknown) (unknown) (unknown) (no date) (unknown) (unknown) PT (units unknown) (unknown) (unknown) (no date) (unknown) (unknown) Pain (units unknown) (unknown) (unknown) (no date) (unknown) (unknown) Patient has a closed displaced left femoral neck fracture. He is underlying (units unknown) (unknown) (unknown) (no date) (unknown) (unknown) Patient is a 77-year-old male with Alzheimer's dementia lives in a snf. (units unknown) (unknown) (unknown) (no date) (unknown) (unknown) Patient: Donna Garcia MR#: [id number] (units unknown) (unknown) (unknown) (no date) (unknown) (unknown) Plan (units unknown) (unknown) (unknown) (no date) (unknown) (unknown) Plt Count 186 (units unknown) (unknown) (unknown) (no date) (unknown) (unknown) Plt Count 196 (units unknown) (unknown) (unknown) (no date) (unknown) (unknown) Potassium 3.9 (units unknown) (unknown) (unknown) (no date) (unknown) (unknown) Provider: Mariaa Soares MD (units unknown) (unknown) (unknown) (no date) (unknown) (unknown) Pulse Oximetry 96 93 (units unknown) (unknown) (unknown) (no date) (unknown) (unknown) Pulse Oximetry 97 (units unknown) (unknown) (unknown) (no date) (unknown) (unknown) Pulse Rate 70 66 (units unknown) (unknown) (unknown) (no date) (unknown) (unknown) Pulse Rate 70 (units unknown) (unknown) (unknown) (no date) (unknown) (unknown) Qualifiers: (units unknown) (unknown) (unknown) (no date) (unknown) (unknown) Quality (units unknown) (unknown) (unknown) (no date) (unknown) (unknown) RBBB (right bundle branch block) (units unknown) (unknown) (unknown) (no date) (unknown) (unknown) RBC 3.11 L (units unknown) (unknown) (unknown) (no date) (unknown) (unknown) RBC 3.28 L (units unknown) (unknown) (unknown) (no date) (unknown) (unknown) RDW 16.6 H (units unknown) (unknown) (unknown) (no date) (unknown) (unknown) RDW 17.0 H (units unknown) (unknown) (unknown) (no date) (unknown) (unknown) ROS: Yes unobtainable due to mental condition (units unknown) (unknown) (unknown) (no date) (unknown) (unknown) Radiologist's impression: (units unknown) (unknown) (unknown) (no date) (unknown) (unknown) Respiratory Rate 16 18 (units unknown) (unknown) (unknown) (no date) (unknown) (unknown) Respiratory Rate 19 (units unknown) (unknown) (unknown) (no date) (unknown) (unknown) Review of Systems (units unknown) (unknown) (unknown) (no date) (unknown) (unknown) S72.002A - Fracture of unspecified part of neck of left femur, initial encounter (units unknown) (unknown) (unknown) (no date) (unknown) (unknown) Seizures (units unknown) (unknown) (unknown) (no date) (unknown) (unknown) Signed By:<Electronically signed by Mariaa Soares MD> (units unknown) (unknown) (unknown) (no date) (unknown) (unknown) Smoking Status: Smoker, status unknown (units unknown) (unknown) (unknown) (no date) (unknown) (unknown) Social History (units unknown) (unknown) (unknown) (no date) (unknown) (unknown) Sodium 137 (units unknown) (unknown) (unknown) (no date) (unknown) (unknown) Sodium 138 (units unknown) (unknown) (unknown) (no date) (unknown) (unknown) Status: Acute (units unknown) (unknown) (unknown) (no date) (unknown) (unknown) Surgical History (units unknown) (unknown) (unknown) (no date) (unknown) (unknown) TIA (transient ischemic attack) (units unknown) (unknown) (unknown) (no date) (unknown) (unknown) Temperature 97.7 F (units unknown) (unknown) (unknown) (no date) (unknown) (unknown) Temperature 98.6 F (units unknown) (unknown) (unknown) (no date) (unknown) (unknown) Tenderness left hip. Palpable dorsalis pedis pulses but I can not get him to (units unknown) (unknown) (unknown) (no date) (unknown) (unknown) The patient is already starting with anemia on hospital admission. Will use (units unknown) (unknown) (unknown) (no date) (unknown) (unknown) Time Patient Seen: 07:25 (units unknown) (unknown) (unknown) (no date) (unknown) (unknown) Time Spent With Patient (units unknown) (unknown) (unknown) (no date) (unknown) (unknown) Time with patient: 50 to 69 minutes with 50% spent counseling/coordinat ing care (units unknown) (unknown) (unknown) (no date) (unknown) (unknown) Total Bilirubin 0.3 (units unknown) (unknown) (unknown) (no date) (unknown) (unknown) Total Bilirubin (units unknown) (unknown) (unknown) (no date) (unknown) (unknown) Total Protein 7.2 (units unknown) (unknown) (unknown) (no date) (unknown) (unknown) Total Protein (units unknown) (unknown) (unknown) (no date) (unknown) (unknown) Troponin I < 0.012 (units unknown) (unknown) (unknown) (no date) (unknown) (unknown) Troponin I (units unknown) (unknown) (unknown) (no date) (unknown) (unknown) Ur Culture Indicated? Cult not indicated (units unknown) (unknown) (unknown) (no date) (unknown) (unknown) Ur Culture Indicated? (units unknown) (unknown) (unknown) (no date) (unknown) (unknown) Ur Leukocyte Esterase Negative (units unknown) (unknown) (unknown) (no date) (unknown) (unknown) Ur Leukocyte Esterase (units unknown) (unknown) (unknown) (no date) (unknown) (unknown) Ur Specific [place] 1.010 (units unknown) (unknown) (unknown) (no date) (unknown) (unknown) Ur Specific [place] (units unknown) (unknown) (unknown) (no date) (unknown) (unknown) Ur Squamous Epith Cells None seen (units unknown) (unknown) (unknown) (no date) (unknown) (unknown) Ur Squamous Epith Cells (units unknown) (unknown) (unknown) (no date) (unknown) (unknown) Urine Appearance Clear (units unknown) (unknown) (unknown) (no date) (unknown) (unknown) Urine Appearance (units unknown) (unknown) (unknown) (no date) (unknown) (unknown) Urine Bacteria None seen (units unknown) (unknown) (unknown) (no date) (unknown) (unknown) Urine Bacteria (units unknown) (unknown) (unknown) (no date) (unknown) (unknown) Urine Bilirubin Negative (units unknown) (unknown) (unknown) (no date) (unknown) (unknown) Urine Bilirubin (units unknown) (unknown) (unknown) (no date) (unknown) (unknown) Urine Color Yellow (units unknown) (unknown) (unknown) (no date) (unknown) (unknown) Urine Color (units unknown) (unknown) (unknown) (no date) (unknown) (unknown) Urine Glucose (UA) Negative (units unknown) (unknown) (unknown) (no date) (unknown) (unknown) Urine Glucose (UA) (units unknown) (unknown) (unknown) (no date) (unknown) (unknown) Urine Ketones Trace H (units unknown) (unknown) (unknown) (no date) (unknown) (unknown) Urine Ketones (units unknown) (unknown) (unknown) (no date) (unknown) (unknown) Urine Nitrate Negative (units unknown) (unknown) (unknown) (no date) (unknown) (unknown) Urine Nitrate (units unknown) (unknown) (unknown) (no date) (unknown) (unknown) Urine Occult Blood Negative (units unknown) (unknown) (unknown) (no date) (unknown) (unknown) Urine Occult Blood (units unknown) (unknown) (unknown) (no date) (unknown) (unknown) Urine Protein Negative (units unknown) (unknown) (unknown) (no date) (unknown) (unknown) Urine Protein (units unknown) (unknown) (unknown) (no date) (unknown) (unknown) Urine RBC None seen (units unknown) (unknown) (unknown) (no date) (unknown) (unknown) Urine RBC (units unknown) (unknown) (unknown) (no date) (unknown) (unknown) Urine Urobilinogen 0.2 (units unknown) (unknown) (unknown) (no date) (unknown) (unknown) Urine Urobilinogen (units unknown) (unknown) (unknown) (no date) (unknown) (unknown) Urine WBC None seen (units unknown) (unknown) (unknown) (no date) (unknown) (unknown) Urine WBC (units unknown) (unknown) (unknown) (no date) (unknown) (unknown) Urine pH 6.0 (units unknown) (unknown) (unknown) (no date) (unknown) (unknown) Urine pH (units unknown) (unknown) (unknown) (no date) (unknown) (unknown) VTE (units unknown) (unknown) (unknown) (no date) (unknown) (unknown) Vital Signs (units unknown) (unknown) (unknown) (no date) (unknown) (unknown) WBC 5.8 (units unknown) (unknown) (unknown) (no date) (unknown) (unknown) WBC 6.6 (units unknown) (unknown) (unknown) (no date) (unknown) (unknown) [Embedded Image Not Available] (units unknown) (unknown) (unknown) (no date) (unknown) (unknown) acetaminophen 500 mg tablet 1,000 mg PO TID 02/08/23 02/08/23 History (units unknown) (unknown) (unknown) (no date) (unknown) (unknown) alcohol intake: current (units unknown) (unknown) (unknown) (no date) (unknown) (unknown) arthritis otherwise personal medical history is difficult. Remainder of medical (units unknown) (unknown) (unknown) (no date) (unknown) (unknown) arthritis. And diagnosis of Alzheimer's dementia. He is indicated for a (units unknown) (unknown) (unknown) (no date) (unknown) (unknown) aspirin 81 mg tablet,delayed 81 mg PO DAILY 02/08/23 02/08/23 History (units unknown) (unknown) (unknown) (no date) (unknown) (unknown) atorvastatin 20 mg tablet 20 mg PO BEDTIME 02/08/23 02/08/23 History (units unknown) (unknown) (unknown) (no date) (unknown) (unknown) bilateral hip joint osteoarthritis (units unknown) (unknown) (unknown) (no date) (unknown) (unknown) blood loss anemia (units unknown) (unknown) (unknown) (no date) (unknown) (unknown) cemented partial hip replacement, hemiarthroplasty of the left hip. We will (units unknown) (unknown) (unknown) (no date) (unknown) (unknown) cholecalciferol (vitamin D3) 25 1,000 unit PO DAILY 02/08/23 02/08/23 History (units unknown) (unknown) (unknown) (no date) (unknown) (unknown) clear to auscultation bilaterally (units unknown) (unknown) (unknown) (no date) (unknown) (unknown) deformities. Calves are soft bilaterally. Heart regular rate and rhythm lungs (units unknown) (unknown) (unknown) (no date) (unknown) (unknown) demonstrate dorsiflexion of the ankles on either side this morning. Pre more he (units unknown) (unknown) (unknown) (no date) (unknown) (unknown) diclofenac sodium 1 % topical gel 4 g topical QID 02/08/23 02/08/23 History (units unknown) (unknown) (unknown) (no date) (unknown) (unknown) disturbance, and anxiety (units unknown) (unknown) (unknown) (no date) (unknown) (unknown) extremities wiggles hand and fingers bilaterally and toes. Does not lift arms. (units unknown) (unknown) (unknown) (no date) (unknown) (unknown) ferrous sulfate 325 mg (65 mg 325 mg PO DAILY 02/08/23 02/08/23 History (units unknown) (unknown) (unknown) (no date) (unknown) (unknown) for closed fracture (units unknown) (unknown) (unknown) (no date) (unknown) (unknown) gabapentin 300 mg capsule 300 mg PO DAILY 02/08/23 02/08/23 History (units unknown) (unknown) (unknown) (no date) (unknown) (unknown) gabapentin 300 mg capsule 600 mg PO BID 02/08/23 02/08/23 History (units unknown) (unknown) (unknown) (no date) (unknown) (unknown) history obtained from chart and family. (units unknown) (unknown) (unknown) (no date) (unknown) (unknown) household members: family (units unknown) (unknown) (unknown) (no date) (unknown) (unknown) immediate perioperative and 30 day in 1 year mortality. However due to the (units unknown) (unknown) (unknown) (no date) (unknown) (unknown) immobility. There are significant risks with this injury and with surgery (units unknown) (unknown) (unknown) (no date) (unknown) (unknown) including heart attack stroke dislocation pain fracture, blood clot, , and (units unknown) (unknown) (unknown) (no date) (unknown) (unknown) iron) tablet,delayed release (units unknown) (unknown) (unknown) (no date) (unknown) (unknown) levetiracetam 750 mg tablet 750 mg PO BID 10/20/19 02/08/23 History (units unknown) (unknown) (unknown) (no date) (unknown) (unknown) mcg (1,000 unit) tablet (units unknown) (unknown) (unknown) (no date) (unknown) (unknown) melatonin 3 mg tablet 6 mg PO BEDTIME 02/08/23 02/08/23 History (units unknown) (unknown) (unknown) (no date) (unknown) (unknown) metoprolol tartrate 25 mg tablet 12.5 mg PO BID 10/20/19 02/08/23 History (units unknown) (unknown) (unknown) (no date) (unknown) (unknown) moderate, without behavioral disturbance, psychotic disturbance, mood (units unknown) (unknown) (unknown) (no date) (unknown) (unknown) morbidity of non treated hip fractures the benefits of surgery outweigh the (units unknown) (unknown) (unknown) (no date) (unknown) (unknown) need to discuss with surrogate decision maker. Discussed without surgical (units unknown) (unknown) (unknown) (no date) (unknown) (unknown) omeprazole 20 mg capsule,delayed 20 mg PO DAILY 02/08/23 02/08/23 History (units unknown) (unknown) (unknown) (no date) (unknown) (unknown) oral powder packet (Miralax) (units unknown) (unknown) (unknown) (no date) (unknown) (unknown) polyethylene glycol 3350 17 gram 17 g PO BID 02/08/23 02/08/23 History (units unknown) (unknown) (unknown) (no date) (unknown) (unknown) power of state's attorney is daughter Saranya. When asked if he ambulates states he (units unknown) (unknown) (unknown) (no date) (unknown) (unknown) prazosin 1 mg capsule 1 mg PO BEDTIME 02/08/23 02/08/23 History (units unknown) (unknown) (unknown) (no date) (unknown) (unknown) psychotic, or mood disturbance or anxiety Dementia severity: moderate Dementia (units unknown) (unknown) (unknown) (no date) (unknown) (unknown) pushes what is assumed to be a walker around. He is a history of bilateral hip (units unknown) (unknown) (unknown) (no date) (unknown) (unknown) release (units unknown) (unknown) (unknown) (no date) (unknown) (unknown) risks of significant comorbidities and with this injury both with (units unknown) (unknown) (unknown) (no date) (unknown) (unknown) risks. (units unknown) (unknown) (unknown) (no date) (unknown) (unknown) sennosides 8.6 mg tablet (senna) 8.6 mg PO BID 02/08/23 02/08/23 History (units unknown) (unknown) (unknown) (no date) (unknown) (unknown) sertraline 100 mg tablet 100 mg PO BEDTIME 02/08/23 02/08/23 History (units unknown) (unknown) (unknown) (no date) (unknown) (unknown) shortened externally rotated left lower extremity. No other obvious (units unknown) (unknown) (unknown) (no date) (unknown) (unknown) speaks but in a whisper that is difficult to hear. When asked to move (units unknown) (unknown) (unknown) (no date) (unknown) (unknown) speaks very softly very difficult to interpret answers to questions. Medical (units unknown) (unknown) (unknown) (no date) (unknown) (unknown) symptomatic postoperatively. (units unknown) (unknown) (unknown) (no date) (unknown) (unknown) to allow early range of motion and ambulation reduce the risks of prolonged (units unknown) (unknown) (unknown) (no date) (unknown) (unknown) tranexamic acid to help reduce blood loss but may require transfusion if (units unknown) (unknown) (unknown) (no date) (unknown) (unknown) treatment expectation would be nonambulatory. Discussed the benefits of surgery (units unknown) (unknown) (unknown) (no date) (unknown) (unknown) type: unspecified type Qualified Code(s): F03.B0 - Unspecified dementia, (units unknown) (unknown) (unknown) (no date) (unknown) (unknown) was moving most extremities more last night prior to pain medication. Slight (units unknown) (unknown) Result panel 136 (unknown) (no date) (unknown) (unknown) (no value) (units unknown) (unknown) (unknown) (no date) (unknown) (unknown) [id number] (units unknown) (unknown) (unknown) (no date) (unknown) (unknown) 02/08/23 (units unknown) (unknown) (unknown) (no date) (unknown) (unknown) 1. Intraoperative film demonstrates partial placement of a left hip prosthesis. (units unknown) (unknown) (unknown) (no date) (unknown) (unknown) [address] [place] [address] (units unknown) (unknown) (unknown) (no date) (unknown) (unknown) Accession Number: [id number] (units unknown) (unknown) (unknown) (no date) (unknown) (unknown) Age/Sex: 77 / M Date of Service: (units unknown) (unknown) (unknown) (no date) (unknown) (unknown) [place] [address] (units unknown) (unknown) (unknown) (no date) (unknown) (unknown) Approved by: Juwan Stevenson M.D. on 02/09/2023 at 1:43 (units unknown) (unknown) (unknown) (no date) (unknown) (unknown) Bones: Intraoperative view of the lower pelvis demonstrates partial placement (units unknown) (unknown) (unknown) (no date) (unknown) (unknown) COMPARISON: [facility], CR, XR HIP W PEL IF DONE LT 2V, 02/07/2023, 23:46. (units unknown) (unknown) (unknown) (no date) (unknown) (unknown) : 1945 Acct:[id number] (units unknown) (unknown) (unknown) (no date) (unknown) (unknown) Dictated by: Juwan Stevenson M.D. on 02/09/2023 at 1:41 (units unknown) (unknown) (unknown) (no date) (unknown) (unknown) FINDINGS: (units unknown) (unknown) (unknown) (no date) (unknown) (unknown) IMPRESSION: (units unknown) (unknown) (unknown) (no date) (unknown) (unknown) INDICATIONS: INTER-OP HIP HEMIARTHROPLASTY (units unknown) (unknown) (unknown) (no date) (unknown) (unknown) [facility] (units unknown) (unknown) (unknown) (no date) (unknown) (unknown) Loc: 212-1 (units unknown) (unknown) (unknown) (no date) (unknown) (unknown) Ordering Provider: Edita Galindo (units unknown) (unknown) (unknown) (no date) (unknown) (unknown) PROCEDURE: XR PELVIS 1-2V (units unknown) (unknown) (unknown) (no date) (unknown) (unknown) Patient: Donna Garcia MR#: [id number] (units unknown) (unknown) (unknown) (no date) (unknown) (unknown) Procedure: XR pelvis 1-2V (units unknown) (unknown) (unknown) (no date) (unknown) (unknown) Signed (units unknown) (unknown) (unknown) (no date) (unknown) (unknown) Soft tissues: Overlying intraoperative surgical instrumentation noted. (units unknown) (unknown) (unknown) (no date) (unknown) (unknown) TECHNIQUE: 1 intraoperative view of the pelvis acquired. (units unknown) (unknown) (unknown) (no date) (unknown) (unknown) XRay Report (units unknown) (unknown) (unknown) (no date) (unknown) (unknown) hip arthroplasty with the femoral component in place. Severe right hip joint (units unknown) (unknown) (unknown) (no date) (unknown) (unknown) of a left (units unknown) (unknown) (unknown) (no date) (unknown) (unknown) osteoarthritic changes redemonstrated. (units unknown) (unknown) Result panel 137 (unknown) (no date) (unknown) (unknown) (no value) (units unknown) (unknown) (unknown) (no date) (unknown) (unknown) 2-0 Vicryl and the skin with jose j. An Aquacel dressing was placed. An (units unknown) (unknown) (unknown) (no date) (unknown) (unknown) [id number] (units unknown) (unknown) (unknown) (no date) (unknown) (unknown) A corkscrew and a Haq were used to remove the femoral head from the (units unknown) (unknown) (unknown) (no date) (unknown) (unknown) Age/Sex: 77 / M (units unknown) (unknown) (unknown) (no date) (unknown) (unknown) Anesthesia Type: General and Local (units unknown) (unknown) (unknown) (no date) (unknown) (unknown) Aquacel dressing but no soaking incision. Change as needed. (units unknown) (unknown) (unknown) (no date) (unknown) (unknown) Porter Luggage: Ania Hernandez (units unknown) (unknown) (unknown) (no date) (unknown) (unknown) Blood products transfused: none (units unknown) (unknown) (unknown) (no date) (unknown) (unknown) Bovie and the gluteus goyo was spread with finger retraction. The [place] (units unknown) (unknown) (unknown) (no date) (unknown) (unknown) CPT code 65902 (units unknown) (unknown) (unknown) (no date) (unknown) (unknown) Click Yes if Unassisted: Yes (units unknown) (unknown) (unknown) (no date) (unknown) (unknown) Closure Type: primary (units unknown) (unknown) (unknown) (no date) (unknown) (unknown) Complications: none (units unknown) (unknown) (unknown) (no date) (unknown) (unknown) Condition: stable (units unknown) (unknown) (unknown) (no date) (unknown) (unknown) : 1945 Acct:[id number] (units unknown) (unknown) (unknown) (no date) (unknown) (unknown) Date of Service: 02/08/23 (units unknown) (unknown) (unknown) (no date) (unknown) (unknown) Date of procedure: 02/08/23 (units unknown) (unknown) (unknown) (no date) (unknown) (unknown) Dementia (units unknown) (unknown) (unknown) (no date) (unknown) (unknown) Displaced femoral neck fracture severe hip arthritic changes (units unknown) (unknown) (unknown) (no date) (unknown) (unknown) Disposition: PACU (units unknown) (unknown) (unknown) (no date) (unknown) (unknown) Distal post centralizer 10 mm (units unknown) (unknown) (unknown) (no date) (unknown) (unknown) During the operation, the services of a physician surgical appliance fitter were (units unknown) (unknown) (unknown) (no date) (unknown) (unknown) Estimated Blood Loss (mL): 200 (units unknown) (unknown) (unknown) (no date) (unknown) (unknown) Findings: (units unknown) (unknown) (unknown) (no date) (unknown) (unknown) Formal time-out procedure was performed confirming the patient's side and site (units unknown) (unknown) (unknown) (no date) (unknown) (unknown) General anesthetic was administered. Patient was then moved into the lateral (units unknown) (unknown) (unknown) (no date) (unknown) (unknown) Hemiarthroplasty for femoral neck fracture CPT code 53690. (units unknown) (unknown) (unknown) (no date) (unknown) (unknown) Hemiarthroplasty for left femoral neck fracture fixation with endoprosthesis. (units unknown) (unknown) (unknown) (no date) (unknown) (unknown) Indications: (units unknown) (unknown) (unknown) (no date) (unknown) (unknown) [address] [address] (units unknown) (unknown) (unknown) (no date) (unknown) (unknown) Left hip arthritis (units unknown) (unknown) (unknown) (no date) (unknown) (unknown) Next the short external rotators were repaired to the greater trochanter through (units unknown) (unknown) (unknown) (no date) (unknown) (unknown) Operative Date/Time/Diagnoses (units unknown) (unknown) (unknown) (no date) (unknown) (unknown) Operative Note (units unknown) (unknown) (unknown) (no date) (unknown) (unknown) Operative Notes (units unknown) (unknown) (unknown) (no date) (unknown) (unknown) POA on the telephone and they were given the opportunity to ask questions. The (units unknown) (unknown) (unknown) (no date) (unknown) (unknown) Passer. These were tied with the leg in abduction. The wound was then (units unknown) (unknown) (unknown) (no date) (unknown) (unknown) Patient is a 77-year-old male with a history of seizures and dementia who lives (units unknown) (unknown) (unknown) (no date) (unknown) (unknown) Patient was seen in the preoperative area the site of surgery was marked and (units unknown) (unknown) (unknown) (no date) (unknown) (unknown) Patient: Donna Garcia MR#: [id number] (units unknown) (unknown) (unknown) (no date) (unknown) (unknown) Plan for aftercare: (units unknown) (unknown) (unknown) (no date) (unknown) (unknown) Post-op diagnosis: same (units unknown) (unknown) (unknown) (no date) (unknown) (unknown) Post-operative (units unknown) (unknown) (unknown) (no date) (unknown) (unknown) Posterior hip precautions for 6 weeks. Lovenox 40 mg subcutaneous for 4 weeks (units unknown) (unknown) (unknown) (no date) (unknown) (unknown) Pre-op diagnosis: Left femoral neck fracture displaced (units unknown) (unknown) (unknown) (no date) (unknown) (unknown) Procedure + Clinicians (units unknown) (unknown) (unknown) (no date) (unknown) (unknown) Procedure in detail: (units unknown) (unknown) (unknown) (no date) (unknown) (unknown) Procedure: (units unknown) (unknown) (unknown) (no date) (unknown) (unknown) Prosthetic devices, grafts, tissues, transplants, or devices: (units unknown) (unknown) (unknown) (no date) (unknown) (unknown) Provider: Mariaa Soares MD (units unknown) (unknown) (unknown) (no date) (unknown) (unknown) Same procedure as scheduled: Yes (units unknown) (unknown) (unknown) (no date) (unknown) (unknown) Signed By: (units unknown) (unknown) (unknown) (no date) (unknown) (unknown) Ben and Nephpamela Synergy unipolar femoral component cobalt chromium size 12 (units unknown) (unknown) (unknown) (no date) (unknown) (unknown) Contreras and Nephpaemla tandem unipolar +4 taper sleeve and tandem unipolar cobalt (units unknown) (unknown) (unknown) (no date) (unknown) (unknown) Specimen(s): none sent (units unknown) (unknown) (unknown) (no date) (unknown) (unknown) Surgeon: Mariaa Soares (units unknown) (unknown) (unknown) (no date) (unknown) (unknown) The hip did reduce with the +4 neck and Showed good range of motion and (units unknown) (unknown) (unknown) (no date) (unknown) (unknown) The piriformis and short external rotators were tagged with a 2 Ethibond and (units unknown) (unknown) (unknown) (no date) (unknown) (unknown) This was felt to be appropriate. An intraop a AP pelvis x-ray was obtained to (units unknown) (unknown) (unknown) (no date) (unknown) (unknown) Time of procedure: 18:30 (units unknown) (unknown) (unknown) (no date) (unknown) (unknown) Tourniquet time (min): 0 (units unknown) (unknown) (unknown) (no date) (unknown) (unknown) Two packages of cement were mixed and carefully pressurized into the femoral (units unknown) (unknown) (unknown) (no date) (unknown) (unknown) Weightbear as tolerated with assistive devices. Abduction pillow while in bed. (units unknown) (unknown) (unknown) (no date) (unknown) (unknown) abduction pillow was placed for protection. The drapes removed and the patient (units unknown) (unknown) (unknown) (no date) (unknown) (unknown) acetabulum. This was measured to fit a 48 mm head but due to the severe (units unknown) (unknown) (unknown) (no date) (unknown) (unknown) additional information. After the patient's fall he was unable to weightbear he (units unknown) (unknown) (unknown) (no date) (unknown) (unknown) affected lower extremity was prepped and draped from the ankle to the iliac (units unknown) (unknown) (unknown) (no date) (unknown) (unknown) ambulator with a walker and is limited by his dementia and history of seizures (units unknown) (unknown) (unknown) (no date) (unknown) (unknown) and severe hip arthritis. He was indicated for hemiarthroplasty to treat his (units unknown) (unknown) (unknown) (no date) (unknown) (unknown) approach. Dissection was carried down through the skin and subcutaneous tissues (units unknown) (unknown) (unknown) (no date) (unknown) (unknown) arthritis this was very difficult to fit in the cup and was down sized to a 46 (units unknown) (unknown) (unknown) (no date) (unknown) (unknown) assess component position. Final components were then selected. The final stem (units unknown) (unknown) (unknown) (no date) (unknown) (unknown) axillary roll was placed and the arms were appropriately positioned. The (units unknown) (unknown) (unknown) (no date) (unknown) (unknown) being present this would extended the operative procedure and made the procedure (units unknown) (unknown) (unknown) (no date) (unknown) (unknown) by the anesthesia team. Patient was positioned supine on the operative table. (units unknown) (unknown) (unknown) (no date) (unknown) (unknown) canal. The femoral component was then placed without difficulty. This was held (units unknown) (unknown) (unknown) (no date) (unknown) (unknown) cardiopulmonary complications and . The power of state's attorney expressed a (units unknown) (unknown) (unknown) (no date) (unknown) (unknown) carry out the operation safely and efficiently. Without a qualified medical library assistant (units unknown) (unknown) (unknown) (no date) (unknown) (unknown) cemented hip hemiarthroplasty with no evidence of fracture. (units unknown) (unknown) (unknown) (no date) (unknown) (unknown) chromium head 46 mm (units unknown) (unknown) (unknown) (no date) (unknown) (unknown) complications from this procedure. All counts were correct. Postoperative AP (units unknown) (unknown) (unknown) (no date) (unknown) (unknown) crest with ChloraPrep in the standard fashion sterile drapes were placed. (units unknown) (unknown) (unknown) (no date) (unknown) (unknown) dislocation, persistence of pain, damage to nerves and blood vessels, DVT, PE, (units unknown) (unknown) (unknown) (no date) (unknown) (unknown) displaced femoral neck fracture and allow mobilization. The risks and benefits (units unknown) (unknown) (unknown) (no date) (unknown) (unknown) divided of the trochanter. These were then retracted posteriorly to protect (units unknown) (unknown) (unknown) (no date) (unknown) (unknown) done up to a size 12. Trial components were placed. Again it was difficult to (units unknown) (unknown) (unknown) (no date) (unknown) (unknown) drill holes in the greater trochanter using the 2.5 drill and a Hoewson suture (units unknown) (unknown) (unknown) (no date) (unknown) (unknown) expose the external rotators. (units unknown) (unknown) (unknown) (no date) (unknown) (unknown) fascia raymundo was closed with 0 Vicryl and the subcutaneous layer was closed with (units unknown) (unknown) (unknown) (no date) (unknown) (unknown) femoral neck and the fracture. (units unknown) (unknown) (unknown) (no date) (unknown) (unknown) for DVT prophylaxis. Follow-up in 2 weeks for staple removal. May shower with (units unknown) (unknown) (unknown) (no date) (unknown) (unknown) for the surgical procedure and to maintain the limb in a proper position to (units unknown) (unknown) (unknown) (no date) (unknown) (unknown) fracture. He has underlying severe bilateral hip arthritis. He was an (units unknown) (unknown) (unknown) (no date) (unknown) (unknown) get the head reduced it was 1st trialed with a minus neck and an x-ray was (units unknown) (unknown) (unknown) (no date) (unknown) (unknown) identified. A Cobra retractor was placed under the gluteus medius to help (units unknown) (unknown) (unknown) (no date) (unknown) (unknown) in a snf that had a fall. He is only able to give us very limited (units unknown) (unknown) (unknown) (no date) (unknown) (unknown) in place until the cement hardened. The repeat trial reduction was done with (units unknown) (unknown) (unknown) (no date) (unknown) (unknown) information but his sister is power of state's attorney and was able to provide (units unknown) (unknown) (unknown) (no date) (unknown) (unknown) informed consent confirmed. The patient was brought back to the operating room (units unknown) (unknown) (unknown) (no date) (unknown) (unknown) irrigated again. Exparel was injected for postoperative pain control. The (units unknown) (unknown) (unknown) (no date) (unknown) (unknown) irrigated. The capsule and muscular flap was repaired with the 2. Ethibond. (units unknown) (unknown) (unknown) (no date) (unknown) (unknown) medically indicated and necessary to provide the exposure of the operative site (units unknown) (unknown) (unknown) (no date) (unknown) (unknown) minimal fashion. The trial head size was trialed in the acetabulum. Attention (units unknown) (unknown) (unknown) (no date) (unknown) (unknown) mm head head. Next the femur was presented. A clean-up neck cut was made in a (units unknown) (unknown) (unknown) (no date) (unknown) (unknown) of surgery, presence of informed consent, administration of appropriate (units unknown) (unknown) (unknown) (no date) (unknown) (unknown) of the procedure have been discussed with the patient and separately with the (units unknown) (unknown) (unknown) (no date) (unknown) (unknown) osteotome. This followed by the canal finer and a lateralizing Reamer. The (units unknown) (unknown) (unknown) (no date) (unknown) (unknown) pelvis x-ray was obtained in the PACU showed appropriate alignment of the (units unknown) (unknown) (unknown) (no date) (unknown) (unknown) placed approximately 1 cm distal to the end of the planned implant. The bone (units unknown) (unknown) (unknown) (no date) (unknown) (unknown) position. The hip classifying machine operator positioner pads were then placed. A well-padded (units unknown) (unknown) (unknown) (no date) (unknown) (unknown) preoperative antibiotics. Hip was approached through a standard posterior (units unknown) (unknown) (unknown) (no date) (unknown) (unknown) proceed. Telephone Consent was signed and witnessed (units unknown) (unknown) (unknown) (no date) (unknown) (unknown) put through a range of motion with 70? of internal rotation without dislocation. (units unknown) (unknown) (unknown) (no date) (unknown) (unknown) retractor was placed. The inflamed bursa was resected. The piriformis was then (units unknown) (unknown) (unknown) (no date) (unknown) (unknown) risks of surgery include but are not limited to infection, fracture, (units unknown) (unknown) (unknown) (no date) (unknown) (unknown) sciatic nerve. The femur was then flexed and internally rotated to present the (units unknown) (unknown) (unknown) (no date) (unknown) (unknown) sharply through the skin and then with the Bovie through the subcutaneous (units unknown) (unknown) (unknown) (no date) (unknown) (unknown) small bone plug restrictor (units unknown) (unknown) (unknown) (no date) (unknown) (unknown) stability. The final head and neck were then carefully placed. The wound was (units unknown) (unknown) (unknown) (no date) (unknown) (unknown) taken. The patient was stable in the position of sleep, squatting and could be (units unknown) (unknown) (unknown) (no date) (unknown) (unknown) tapered reamers were then used up to a size 12 Then broaching was sequentially (units unknown) (unknown) (unknown) (no date) (unknown) (unknown) technically more difficult to perform. (units unknown) (unknown) (unknown) (no date) (unknown) (unknown) the 46 mm head and the 0 neck and this did reduce and therefore was also tried (units unknown) (unknown) (unknown) (no date) (unknown) (unknown) thorough understanding of the risks and benefits of surgery and has elected to (units unknown) (unknown) (unknown) (no date) (unknown) (unknown) tissues. The fascia raymundo was exposed and opened. Fascia was opened using the (units unknown) (unknown) (unknown) (no date) (unknown) (unknown) to size up to a +4 neck as the previous intraop x-ray did show some shortening. (units unknown) (unknown) (unknown) (no date) (unknown) (unknown) was a size 12. Femoral canal was prepared . The distal small restrictor was (units unknown) (unknown) (unknown) (no date) (unknown) (unknown) was brought to [facility] and found to have a displaced left femoral neck (units unknown) (unknown) (unknown) (no date) (unknown) (unknown) was meticulously cleaned with pulse lavage. Canal was then packed with gauze. (units unknown) (unknown) (unknown) (no date) (unknown) (unknown) was taken to the recovery room in good condition. There no immediate (units unknown) (unknown) (unknown) (no date) (unknown) (unknown) was then turned to the femur. The canal was opened with a box cutting (units unknown) (unknown) Result panel 138 (unknown) (no date) (unknown) (unknown) (no value) (units unknown) (unknown) (unknown) (no date) (unknown) (unknown) [id number] (units unknown) (unknown) (unknown) (no date) (unknown) (unknown) 02/08/23 (units unknown) (unknown) (unknown) (no date) (unknown) (unknown) 1. Expected postsurgical changes status post left hip arthroplasty. (units unknown) (unknown) (unknown) (no date) (unknown) (unknown) [address] [place] [address] (units unknown) (unknown) (unknown) (no date) (unknown) (unknown) Accession Number: [id number] (units unknown) (unknown) (unknown) (no date) (unknown) (unknown) Age/Sex: 77 / M Date of Service: (units unknown) (unknown) (unknown) (no date) (unknown) (unknown) [place] [address] (units unknown) (unknown) (unknown) (no date) (unknown) (unknown) Approved by: Juwan Stevenson M.D. on 02/08/2023 at 22:22 (units unknown) (unknown) (unknown) (no date) (unknown) (unknown) Bones: There is a new left hip prosthesis which demonstrates near anatomic (units unknown) (unknown) (unknown) (no date) (unknown) (unknown) COMPARISON: [facility], DAVE, YOLANDA HIP W PEL IF DONE RT 2V, 06/16/2019, 10:40. (units unknown) (unknown) (unknown) (no date) (unknown) (unknown) : 1945 Acct:[id number] (units unknown) (unknown) (unknown) (no date) (unknown) (unknown) Dictated by: Juwan Stevenson M.D. on 02/08/2023 at 22:21 (units unknown) (unknown) (unknown) (no date) (unknown) (unknown) FINDINGS: (units unknown) (unknown) (unknown) (no date) (unknown) (unknown) [facility], CR, XR PELVIS 1-2V, 02/08/2023, 19:55. (units unknown) (unknown) (unknown) (no date) (unknown) (unknown) IMPRESSION: (units unknown) (unknown) (unknown) (no date) (unknown) (unknown) INDICATIONS: postop (units unknown) (unknown) (unknown) (no date) (unknown) (unknown) [facility] (units unknown) (unknown) (unknown) (no date) (unknown) (unknown) [place] (units unknown) (unknown) (unknown) (no date) (unknown) (unknown) Loc: AC 212-1 (units unknown) (unknown) (unknown) (no date) (unknown) (unknown) Ordering Provider: Mariaa Soares MD (units unknown) (unknown) (unknown) (no date) (unknown) (unknown) PROCEDURE: XR PELVIS 1-2V (units unknown) (unknown) (unknown) (no date) (unknown) (unknown) Patient: Donna Garcia MR#: [id number] (units unknown) (unknown) (unknown) (no date) (unknown) (unknown) Procedure: XR pelvis 1-2V (units unknown) (unknown) (unknown) (no date) (unknown) (unknown) Severe osteoarthritic changes of the right hip are redemonstrated. Bony pelvis (units unknown) (unknown) (unknown) (no date) (unknown) (unknown) Signed (units unknown) (unknown) (unknown) (no date) (unknown) (unknown) Soft tissues: There are periarticular postsurgical changes around the left hip (units unknown) (unknown) (unknown) (no date) (unknown) (unknown) TECHNIQUE: Single-view of the pelvis acquired. (units unknown) (unknown) (unknown) (no date) (unknown) (unknown) XRay Report (units unknown) (unknown) (unknown) (no date) (unknown) (unknown) alignment. (units unknown) (unknown) (unknown) (no date) (unknown) (unknown) appears (units unknown) (unknown) (unknown) (no date) (unknown) (unknown) including (units unknown) (unknown) (unknown) (no date) (unknown) (unknown) intact. (units unknown) (unknown) (unknown) (no date) (unknown) (unknown) multiple skin jose j. (units unknown) (unknown) Result panel 139 (unknown) (no date) (unknown) (unknown) (no value) (units unknown) (unknown) (unknown) (no date) (unknown) (unknown) 02/08/232058 (units unknown) (unknown) (unknown) (no date) (unknown) (unknown) 2-0 Vicryl and the skin with jose j. An Aquacel dressing was placed. An (units unknown) (unknown) (unknown) (no date) (unknown) (unknown) [id number] (units unknown) (unknown) (unknown) (no date) (unknown) (unknown) A corkscrew and a Haq were used to remove the femoral head from the (units unknown) (unknown) (unknown) (no date) (unknown) (unknown) Age/Sex: 77 / M (units unknown) (unknown) (unknown) (no date) (unknown) (unknown) Anesthesia Type: General and Local (units unknown) (unknown) (unknown) (no date) (unknown) (unknown) Aquacel dressing but no soaking incision. Change as needed. (units unknown) (unknown) (unknown) (no date) (unknown) (unknown) Porter Luggage: Ania Hernandez (units unknown) (unknown) (unknown) (no date) (unknown) (unknown) Blood products transfused: none (units unknown) (unknown) (unknown) (no date) (unknown) (unknown) Bovie and the gluteus goyo was spread with finger retraction. The [place] (units unknown) (unknown) (unknown) (no date) (unknown) (unknown) CPT code 25051 (units unknown) (unknown) (unknown) (no date) (unknown) (unknown) Click Yes if Unassisted: Yes (units unknown) (unknown) (unknown) (no date) (unknown) (unknown) Closure Type: primary (units unknown) (unknown) (unknown) (no date) (unknown) (unknown) Complications: none (units unknown) (unknown) (unknown) (no date) (unknown) (unknown) Condition: stable (units unknown) (unknown) (unknown) (no date) (unknown) (unknown) : 1945 Acct:[id number] (units unknown) (unknown) (unknown) (no date) (unknown) (unknown) Date of Service: 02/08/23 (units unknown) (unknown) (unknown) (no date) (unknown) (unknown) Date of procedure: 02/08/23 (units unknown) (unknown) (unknown) (no date) (unknown) (unknown) Dementia (units unknown) (unknown) (unknown) (no date) (unknown) (unknown) Displaced femoral neck fracture severe hip arthritic changes (units unknown) (unknown) (unknown) (no date) (unknown) (unknown) Disposition: PACU (units unknown) (unknown) (unknown) (no date) (unknown) (unknown) Distal post centralizer 10 mm (units unknown) (unknown) (unknown) (no date) (unknown) (unknown) During the operation, the services of a physician surgical appliance fitter were (units unknown) (unknown) (unknown) (no date) (unknown) (unknown) Estimated Blood Loss (mL): 200 (units unknown) (unknown) (unknown) (no date) (unknown) (unknown) Findings: (units unknown) (unknown) (unknown) (no date) (unknown) (unknown) Formal time-out procedure was performed confirming the patient's side and site (units unknown) (unknown) (unknown) (no date) (unknown) (unknown) General anesthetic was administered. Patient was then moved into the lateral (units unknown) (unknown) (unknown) (no date) (unknown) (unknown) Hemiarthroplasty for femoral neck fracture CPT code 79658. (units unknown) (unknown) (unknown) (no date) (unknown) (unknown) Hemiarthroplasty for left femoral neck fracture fixation with endoprosthesis. (units unknown) (unknown) (unknown) (no date) (unknown) (unknown) Indications: (units unknown) (unknown) (unknown) (no date) (unknown) (unknown) [address] [address] (units unknown) (unknown) (unknown) (no date) (unknown) (unknown) Left hip arthritis (units unknown) (unknown) (unknown) (no date) (unknown) (unknown) Next the short external rotators were repaired to the greater trochanter through (units unknown) (unknown) (unknown) (no date) (unknown) (unknown) Operative Date/Time/Diagnoses (units unknown) (unknown) (unknown) (no date) (unknown) (unknown) Operative Note (units unknown) (unknown) (unknown) (no date) (unknown) (unknown) Operative Notes (units unknown) (unknown) (unknown) (no date) (unknown) (unknown) POA on the telephone and they were given the opportunity to ask questions. The (units unknown) (unknown) (unknown) (no date) (unknown) (unknown) Passer. These were tied with the leg in abduction. The wound was then (units unknown) (unknown) (unknown) (no date) (unknown) (unknown) Patient is a 77-year-old male with a history of seizures and dementia who lives (units unknown) (unknown) (unknown) (no date) (unknown) (unknown) Patient was seen in the preoperative area the site of surgery was marked and (units unknown) (unknown) (unknown) (no date) (unknown) (unknown) Patient: Donna Garcia MR#: [id number] (units unknown) (unknown) (unknown) (no date) (unknown) (unknown) Plan for aftercare: (units unknown) (unknown) (unknown) (no date) (unknown) (unknown) Post-op diagnosis: same (units unknown) (unknown) (unknown) (no date) (unknown) (unknown) Post-operative (units unknown) (unknown) (unknown) (no date) (unknown) (unknown) Posterior hip precautions for 6 weeks. Lovenox 40 mg subcutaneous for 4 weeks (units unknown) (unknown) (unknown) (no date) (unknown) (unknown) Pre-op diagnosis: Left femoral neck fracture displaced (units unknown) (unknown) (unknown) (no date) (unknown) (unknown) Procedure + Clinicians (units unknown) (unknown) (unknown) (no date) (unknown) (unknown) Procedure in detail: (units unknown) (unknown) (unknown) (no date) (unknown) (unknown) Procedure: (units unknown) (unknown) (unknown) (no date) (unknown) (unknown) Prosthetic devices, grafts, tissues, transplants, or devices: (units unknown) (unknown) (unknown) (no date) (unknown) (unknown) Provider: Mariaa Soares MD (units unknown) (unknown) (unknown) (no date) (unknown) (unknown) Same procedure as scheduled: Yes (units unknown) (unknown) (unknown) (no date) (unknown) (unknown) Signed By:<Electronically signed by Mariaa Soares MD> (units unknown) (unknown) (unknown) (no date) (unknown) (unknown) Contreras and Nephpamela Synergy unipolar femoral component cobalt chromium size 12 (units unknown) (unknown) (unknown) (no date) (unknown) (unknown) Contreras and Nephpamela tandem unipolar +4 taper sleeve and tandem unipolar cobalt (units unknown) (unknown) (unknown) (no date) (unknown) (unknown) Specimen(s): none sent (units unknown) (unknown) (unknown) (no date) (unknown) (unknown) Surgeon: Mariaa Soares (units unknown) (unknown) (unknown) (no date) (unknown) (unknown) The hip did reduce with the +4 neck and Showed good range of motion and (units unknown) (unknown) (unknown) (no date) (unknown) (unknown) The piriformis and short external rotators were tagged with a 2 Ethibond and (units unknown) (unknown) (unknown) (no date) (unknown) (unknown) This was felt to be appropriate. An intraop a AP pelvis x-ray was obtained to (units unknown) (unknown) (unknown) (no date) (unknown) (unknown) Time of procedure: 18:30 (units unknown) (unknown) (unknown) (no date) (unknown) (unknown) Tourniquet time (min): 0 (units unknown) (unknown) (unknown) (no date) (unknown) (unknown) Two packages of cement were mixed and carefully pressurized into the femoral (units unknown) (unknown) (unknown) (no date) (unknown) (unknown) Weightbear as tolerated with assistive devices. Abduction pillow while in bed. (units unknown) (unknown) (unknown) (no date) (unknown) (unknown) abduction pillow was placed for protection. The drapes removed and the patient (units unknown) (unknown) (unknown) (no date) (unknown) (unknown) acetabulum. This was measured to fit a 48 mm head but due to the severe (units unknown) (unknown) (unknown) (no date) (unknown) (unknown) additional information. After the patient's fall he was unable to weightbear he (units unknown) (unknown) (unknown) (no date) (unknown) (unknown) affected lower extremity was prepped and draped from the ankle to the iliac (units unknown) (unknown) (unknown) (no date) (unknown) (unknown) ambulator with a walker and is limited by his dementia and history of seizures (units unknown) (unknown) (unknown) (no date) (unknown) (unknown) and severe hip arthritis. He was indicated for hemiarthroplasty to treat his (units unknown) (unknown) (unknown) (no date) (unknown) (unknown) approach. Dissection was carried down through the skin and subcutaneous tissues (units unknown) (unknown) (unknown) (no date) (unknown) (unknown) arthritis this was very difficult to fit in the cup and was down sized to a 46 (units unknown) (unknown) (unknown) (no date) (unknown) (unknown) assess component position. Final components were then selected. The final stem (units unknown) (unknown) (unknown) (no date) (unknown) (unknown) axillary roll was placed and the arms were appropriately positioned. The (units unknown) (unknown) (unknown) (no date) (unknown) (unknown) being present this would extended the operative procedure and made the procedure (units unknown) (unknown) (unknown) (no date) (unknown) (unknown) by the anesthesia team. Patient was positioned supine on the operative table. (units unknown) (unknown) (unknown) (no date) (unknown) (unknown) canal. The femoral component was then placed without difficulty. This was held (units unknown) (unknown) (unknown) (no date) (unknown) (unknown) cardiopulmonary complications and . The power of state's attorney expressed a (units unknown) (unknown) (unknown) (no date) (unknown) (unknown) carry out the operation safely and efficiently. Without a qualified medical library assistant (units unknown) (unknown) (unknown) (no date) (unknown) (unknown) cemented hip hemiarthroplasty with no evidence of fracture. (units unknown) (unknown) (unknown) (no date) (unknown) (unknown) chromium head 46 mm (units unknown) (unknown) (unknown) (no date) (unknown) (unknown) complications from this procedure. All counts were correct. Postoperative AP (units unknown) (unknown) (unknown) (no date) (unknown) (unknown) crest with ChloraPrep in the standard fashion sterile drapes were placed. (units unknown) (unknown) (unknown) (no date) (unknown) (unknown) dislocation, persistence of pain, damage to nerves and blood vessels, DVT, PE, (units unknown) (unknown) (unknown) (no date) (unknown) (unknown) displaced femoral neck fracture and allow mobilization. The risks and benefits (units unknown) (unknown) (unknown) (no date) (unknown) (unknown) divided of the trochanter. These were then retracted posteriorly to protect (units unknown) (unknown) (unknown) (no date) (unknown) (unknown) done up to a size 12. Trial components were placed. Again it was difficult to (units unknown) (unknown) (unknown) (no date) (unknown) (unknown) drill holes in the greater trochanter using the 2.5 drill and a Hoewson suture (units unknown) (unknown) (unknown) (no date) (unknown) (unknown) expose the external rotators. (units unknown) (unknown) (unknown) (no date) (unknown) (unknown) fascia raymundo was closed with 0 Vicryl and the subcutaneous layer was closed with (units unknown) (unknown) (unknown) (no date) (unknown) (unknown) femoral neck and the fracture. (units unknown) (unknown) (unknown) (no date) (unknown) (unknown) for DVT prophylaxis. Follow-up in 2 weeks for staple removal. May shower with (units unknown) (unknown) (unknown) (no date) (unknown) (unknown) for the surgical procedure and to maintain the limb in a proper position to (units unknown) (unknown) (unknown) (no date) (unknown) (unknown) fracture. He has underlying severe bilateral hip arthritis. He was an (units unknown) (unknown) (unknown) (no date) (unknown) (unknown) get the head reduced it was 1st trialed with a minus neck and an x-ray was (units unknown) (unknown) (unknown) (no date) (unknown) (unknown) identified. A Cobra retractor was placed under the gluteus medius to help (units unknown) (unknown) (unknown) (no date) (unknown) (unknown) in a snf that had a fall. He is only able to give us very limited (units unknown) (unknown) (unknown) (no date) (unknown) (unknown) in place until the cement hardened. The repeat trial reduction was done with (units unknown) (unknown) (unknown) (no date) (unknown) (unknown) information but his sister is power of state's attorney and was able to provide (units unknown) (unknown) (unknown) (no date) (unknown) (unknown) informed consent confirmed. The patient was brought back to the operating room (units unknown) (unknown) (unknown) (no date) (unknown) (unknown) irrigated again. Exparel was injected for postoperative pain control. The (units unknown) (unknown) (unknown) (no date) (unknown) (unknown) irrigated. The capsule and muscular flap was repaired with the 2. Ethibond. (units unknown) (unknown) (unknown) (no date) (unknown) (unknown) medically indicated and necessary to provide the exposure of the operative site (units unknown) (unknown) (unknown) (no date) (unknown) (unknown) minimal fashion. The trial head size was trialed in the acetabulum. Attention (units unknown) (unknown) (unknown) (no date) (unknown) (unknown) mm head head. Next the femur was presented. A clean-up neck cut was made in a (units unknown) (unknown) (unknown) (no date) (unknown) (unknown) of surgery, presence of informed consent, administration of appropriate (units unknown) (unknown) (unknown) (no date) (unknown) (unknown) of the procedure have been discussed with the patient and separately with the (units unknown) (unknown) (unknown) (no date) (unknown) (unknown) osteotome. This followed by the canal finer and a lateralizing Reamer. The (units unknown) (unknown) (unknown) (no date) (unknown) (unknown) pelvis x-ray was obtained in the PACU showed appropriate alignment of the (units unknown) (unknown) (unknown) (no date) (unknown) (unknown) placed approximately 1 cm distal to the end of the planned implant. The bone (units unknown) (unknown) (unknown) (no date) (unknown) (unknown) position. The hip classifying machine operator positioner pads were then placed. A well-padded (units unknown) (unknown) (unknown) (no date) (unknown) (unknown) preoperative antibiotics. Hip was approached through a standard posterior (units unknown) (unknown) (unknown) (no date) (unknown) (unknown) proceed. Telephone Consent was signed and witnessed (units unknown) (unknown) (unknown) (no date) (unknown) (unknown) put through a range of motion with 70? of internal rotation without dislocation. (units unknown) (unknown) (unknown) (no date) (unknown) (unknown) retractor was placed. The inflamed bursa was resected. The piriformis was then (units unknown) (unknown) (unknown) (no date) (unknown) (unknown) risks of surgery include but are not limited to infection, fracture, (units unknown) (unknown) (unknown) (no date) (unknown) (unknown) sciatic nerve. The femur was then flexed and internally rotated to present the (units unknown) (unknown) (unknown) (no date) (unknown) (unknown) sharply through the skin and then with the Bovie through the subcutaneous (units unknown) (unknown) (unknown) (no date) (unknown) (unknown) small bone plug restrictor (units unknown) (unknown) (unknown) (no date) (unknown) (unknown) stability. The final head and neck were then carefully placed. The wound was (units unknown) (unknown) (unknown) (no date) (unknown) (unknown) taken. The patient was stable in the position of sleep, squatting and could be (units unknown) (unknown) (unknown) (no date) (unknown) (unknown) tapered reamers were then used up to a size 12 Then broaching was sequentially (units unknown) (unknown) (unknown) (no date) (unknown) (unknown) technically more difficult to perform. (units unknown) (unknown) (unknown) (no date) (unknown) (unknown) the 46 mm head and the 0 neck and this did reduce and therefore was also tried (units unknown) (unknown) (unknown) (no date) (unknown) (unknown) thorough understanding of the risks and benefits of surgery and has elected to (units unknown) (unknown) (unknown) (no date) (unknown) (unknown) tissues. The fascia raymundo was exposed and opened. Fascia was opened using the (units unknown) (unknown) (unknown) (no date) (unknown) (unknown) to size up to a +4 neck as the previous intraop x-ray did show some shortening. (units unknown) (unknown) (unknown) (no date) (unknown) (unknown) was a size 12. Femoral canal was prepared . The distal small restrictor was (units unknown) (unknown) (unknown) (no date) (unknown) (unknown) was brought to [facility] and found to have a displaced left femoral neck (units unknown) (unknown) (unknown) (no date) (unknown) (unknown) was meticulously cleaned with pulse lavage. Canal was then packed with gauze. (units unknown) (unknown) (unknown) (no date) (unknown) (unknown) was taken to the recovery room in good condition. There no immediate (units unknown) (unknown) (unknown) (no date) (unknown) (unknown) was then turned to the femur. The canal was opened with a box cutting (units unknown) (unknown) Result panel 140 (unknown) (no date) (unknown) (unknown) > 60 ml/min (unknown) (unknown) (no date) (unknown) (unknown) > 60 ml/min (unknown) (unknown) (no date) (unknown) (unknown) 0.73 mg/dl (unknown) (unknown) (no date) (unknown) (unknown) 107 mmol/l (unknown) (unknown) (no date) (unknown) (unknown) 129 mg/dl (unknown) (unknown) (no date) (unknown) (unknown) 129 mg/dl (unknown) (unknown) (no date) (unknown) (unknown) 137 mmol/l (unknown) (unknown) (no date) (unknown) (unknown) 18 mg/dl (unknown) (unknown) (no date) (unknown) (unknown) 24 mmol/l (unknown) (unknown) (no date) (unknown) (unknown) 24.7 (units unknown) (unknown) (unknown) (no date) (unknown) (unknown) 4.1 mmol/l (unknown) (unknown) (no date) (unknown) (unknown) 7.6 mg/dl (unknown) Result panel 141 (unknown) (no date) (unknown) (unknown) 0 /ul (unknown) (unknown) (no date) (unknown) (unknown) 0 /ul (unknown) (unknown) (no date) (unknown) (unknown) 0.0 % (unknown) (unknown) (no date) (unknown) (unknown) 0.1 % (unknown) (unknown) (no date) (unknown) (unknown) 10.7 x10 3/ul (unknown) (unknown) (no date) (unknown) (unknown) 10.7 x10 3/ul (unknown) (unknown) (no date) (unknown) (unknown) 157 x10 3/ul (unknown) (unknown) (no date) (unknown) (unknown) 16.1 % (unknown) (unknown) (no date) (unknown) (unknown) 2.26 x10 6/ul (unknown) (unknown) (no date) (unknown) (unknown) 22.4 % (unknown) (unknown) (no date) (unknown) (unknown) 33.3 pg (unknown) (unknown) (no date) (unknown) (unknown) 33.6 % (unknown) (unknown) (no date) (unknown) (unknown) 5.5 % (unknown) (unknown) (no date) (unknown) (unknown) 6.1 % (unknown) (unknown) (no date) (unknown) (unknown) 6.1 % (unknown) (unknown) (no date) (unknown) (unknown) 600 /ul (unknown) (unknown) (no date) (unknown) (unknown) 7.5 g/dl (unknown) (unknown) (no date) (unknown) (unknown) 700 /ul (unknown) (unknown) (no date) (unknown) (unknown) 88.3 % (unknown) (unknown) (no date) (unknown) (unknown) 88.3 % (unknown) (unknown) (no date) (unknown) (unknown) 9400 /ul (unknown) (unknown) (no date) (unknown) (unknown) 99.1 fl (unknown) Result panel 142 (unknown) (no date) (unknown) (unknown) DETECTED (units unknown) (unknown) (unknown) (no date) (unknown) (unknown) DETECTED (units unknown) (unknown) Result panel 143 (unknown) (no date) (unknown) (unknown) (no value) (units unknown) (unknown) (unknown) (no date) (unknown) (unknown) (past 8 hours): (units unknown) (unknown) (unknown) (no date) (unknown) (unknown) [id number] (units unknown) (unknown) (unknown) (no date) (unknown) (unknown) 02/08/23 02:41 (units unknown) (unknown) (unknown) (no date) (unknown) (unknown) 02/08/23 03:01 (units unknown) (unknown) (unknown) (no date) (unknown) (unknown) 02/08/23 21:59 (units unknown) (unknown) (unknown) (no date) (unknown) (unknown) 02/09/23 02/09/23 02/09/23 (units unknown) (unknown) (unknown) (no date) (unknown) (unknown) 02/09/23 08:00 (units unknown) (unknown) (unknown) (no date) (unknown) (unknown) 02/09/23 10:21 (units unknown) (unknown) (unknown) (no date) (unknown) (unknown) 02/09/23 (units unknown) (unknown) (unknown) (no date) (unknown) (unknown) 06:15 08:00 08:00 (units unknown) (unknown) (unknown) (no date) (unknown) (unknown) 06:16 02/09/23 (units unknown) (unknown) (unknown) (no date) (unknown) (unknown) 06:20 (units unknown) (unknown) (unknown) (no date) (unknown) (unknown) 06:30 02/09/23 (units unknown) (unknown) (unknown) (no date) (unknown) (unknown) 06:45 02/09/23 (units unknown) (unknown) (unknown) (no date) (unknown) (unknown) 06:45 (units unknown) (unknown) (unknown) (no date) (unknown) (unknown) 07:00 02/09/23 (units unknown) (unknown) (unknown) (no date) (unknown) (unknown) 07:00 (units unknown) (unknown) (unknown) (no date) (unknown) (unknown) 07:16 02/09/23 (units unknown) (unknown) (unknown) (no date) (unknown) (unknown) 07:30 02/09/23 (units unknown) (unknown) (unknown) (no date) (unknown) (unknown) 07:30 (units unknown) (unknown) (unknown) (no date) (unknown) (unknown) 07:45 02/09/23 (units unknown) (unknown) (unknown) (no date) (unknown) (unknown) 07:45 (units unknown) (unknown) (unknown) (no date) (unknown) (unknown) 08:00 02/09/23 (units unknown) (unknown) (unknown) (no date) (unknown) (unknown) 08:01 02/09/23 (units unknown) (unknown) (unknown) (no date) (unknown) (unknown) 08:01 (units unknown) (unknown) (unknown) (no date) (unknown) (unknown) 08:30 02/09/23 (units unknown) (unknown) (unknown) (no date) (unknown) (unknown) 09:12 (units unknown) (unknown) (unknown) (no date) (unknown) (unknown) 09:30 02/09/23 (units unknown) (unknown) (unknown) (no date) (unknown) (unknown) 1 mg PO BEDTIME (units unknown) (unknown) (unknown) (no date) (unknown) (unknown) 1,000 mg PO TID (units unknown) (unknown) (unknown) (no date) (unknown) (unknown) 1,000 unit PO DAILY (units unknown) (unknown) (unknown) (no date) (unknown) (unknown) 100 mg PO BEDTIME (units unknown) (unknown) (unknown) (no date) (unknown) (unknown) 10:00 02/09/23 (units unknown) (unknown) (unknown) (no date) (unknown) (unknown) 10:07 02/09/23 (units unknown) (unknown) (unknown) (no date) (unknown) (unknown) 10:07 (units unknown) (unknown) (unknown) (no date) (unknown) (unknown) 12.5 mg PO BID (units unknown) (unknown) (unknown) (no date) (unknown) (unknown) 12:00 (units unknown) (unknown) (unknown) (no date) (unknown) (unknown) 17 g PO BID (units unknown) (unknown) (unknown) (no date) (unknown) (unknown) 20 mg PO BEDTIME (units unknown) (unknown) (unknown) (no date) (unknown) (unknown) 20 mg PO DAILY (units unknown) (unknown) (unknown) (no date) (unknown) (unknown) 300 mg PO DAILY (units unknown) (unknown) (unknown) (no date) (unknown) (unknown) 325 mg PO DAILY (units unknown) (unknown) (unknown) (no date) (unknown) (unknown) 4 g TOPICAL QID (units unknown) (unknown) (unknown) (no date) (unknown) (unknown) 6 mg PO BEDTIME (units unknown) (unknown) (unknown) (no date) (unknown) (unknown) 600 mg PO BID (units unknown) (unknown) (unknown) (no date) (unknown) (unknown) 750 mg PO BID (units unknown) (unknown) (unknown) (no date) (unknown) (unknown) 8.6 mg PO BID (units unknown) (unknown) (unknown) (no date) (unknown) (unknown) 81 mg PO DAILY (units unknown) (unknown) (unknown) (no date) (unknown) (unknown) Activity: Weightbear as tolerated with assistive devices. Abduction pillow (units unknown) (unknown) (unknown) (no date) (unknown) (unknown) Age/Sex: 77 / M (units unknown) (unknown) (unknown) (no date) (unknown) (unknown) Alzheimer's dementia (units unknown) (unknown) (unknown) (no date) (unknown) (unknown) Anxiety (units unknown) (unknown) (unknown) (no date) (unknown) (unknown) At noon (units unknown) (unknown) (unknown) (no date) (unknown) (unknown) BUN 18 (units unknown) (unknown) (unknown) (no date) (unknown) (unknown) BUN/Creatinine Ratio 24.7 H (units unknown) (unknown) (unknown) (no date) (unknown) (unknown) Baso # (Auto) 0 (units unknown) (unknown) (unknown) (no date) (unknown) (unknown) Baso % (Auto) 0.1 (units unknown) (unknown) (unknown) (no date) (unknown) (unknown) Blood Pressure 105/57 L (units unknown) (unknown) (unknown) (no date) (unknown) (unknown) Blood Pressure 83/53 L 90/51 L (units unknown) (unknown) (unknown) (no date) (unknown) (unknown) Blood Pressure 89/53 L (units unknown) (unknown) (unknown) (no date) (unknown) (unknown) Blood Pressure 93/51 L (units unknown) (unknown) (unknown) (no date) (unknown) (unknown) Blood Pressure 97/55 L 97/54 L (units unknown) (unknown) (unknown) (no date) (unknown) (unknown) Blood Pressure 98/53 L (units unknown) (unknown) (unknown) (no date) (unknown) (unknown) Blood Pressure 99/56 L 95/64 (units unknown) (unknown) (unknown) (no date) (unknown) (unknown) Blood Pressure (units unknown) (unknown) (unknown) (no date) (unknown) (unknown) Calcium 7.6 L (units unknown) (unknown) (unknown) (no date) (unknown) (unknown) Carbon Dioxide 24 (units unknown) (unknown) (unknown) (no date) (unknown) (unknown) Chest pain (units unknown) (unknown) (unknown) (no date) (unknown) (unknown) Chief complaint: Left femoral neck fracture (units unknown) (unknown) (unknown) (no date) (unknown) (unknown) Chloride 107 (units unknown) (unknown) (unknown) (no date) (unknown) (unknown) Comment: wbat , php x 6 wks, abd pillow when in bed (units unknown) (unknown) (unknown) (no date) (unknown) (unknown) Comment: (units unknown) (unknown) (unknown) (no date) (unknown) (unknown) Mariaa Soares MD [Physician] - 2 Weeks (Follow up 2 weeks after surgery for (units unknown) (unknown) (unknown) (no date) (unknown) (unknown) Consult to Discharge Planning Routine (units unknown) (unknown) (unknown) (no date) (unknown) (unknown) Consult to Occupational Therapy Evaluate + Treat (units unknown) (unknown) (unknown) (no date) (unknown) (unknown) Consult to Physical Therapy Evaluate + Treat (units unknown) (unknown) (unknown) (no date) (unknown) (unknown) Consult to Physician Routine (units unknown) (unknown) (unknown) (no date) (unknown) (unknown) Consulting Provider: Mariaa Soares (units unknown) (unknown) (unknown) (no date) (unknown) (unknown) Consults: (units unknown) (unknown) (unknown) (no date) (unknown) (unknown) Creatinine 0.73 (units unknown) (unknown) (unknown) (no date) (unknown) (unknown) : 1945 Acct:[id number] (units unknown) (unknown) (unknown) (no date) (unknown) (unknown) Date of Service: 02/08/23 (units unknown) (unknown) (unknown) (no date) (unknown) (unknown) Date of admission: (units unknown) (unknown) (unknown) (no date) (unknown) (unknown) Deep Vein Thrombosis/Pulmonary Embolism Present on Admission: No (units unknown) (unknown) (unknown) (no date) (unknown) (unknown) Depression (units unknown) (unknown) (unknown) (no date) (unknown) (unknown) Diet/Activity/Treatm ents (units unknown) (unknown) (unknown) (no date) (unknown) (unknown) Discharge Date: 02/10/23 (units unknown) (unknown) (unknown) (no date) (unknown) (unknown) Discharge Plan (units unknown) (unknown) (unknown) (no date) (unknown) (unknown) Discharge Providers (units unknown) (unknown) (unknown) (no date) (unknown) (unknown) Discharge Summary (units unknown) (unknown) (unknown) (no date) (unknown) (unknown) Discharge orders + Medications (units unknown) (unknown) (unknown) (no date) (unknown) (unknown) Discharge provider: (units unknown) (unknown) (unknown) (no date) (unknown) (unknown) Dressing: May shower with Aquacel dressing but no soaking incision. Change as (units unknown) (unknown) (unknown) (no date) (unknown) (unknown) Easy bruisability (units unknown) (unknown) (unknown) (no date) (unknown) (unknown) Eos # (Auto) 0 (units unknown) (unknown) (unknown) (no date) (unknown) (unknown) Eos % (Auto) 0.0 L (units unknown) (unknown) (unknown) (no date) (unknown) (unknown) Epilepsy (units unknown) (unknown) (unknown) (no date) (unknown) (unknown) Estimated GFR > 60 (units unknown) (unknown) (unknown) (no date) (unknown) (unknown) Exam (units unknown) (unknown) (unknown) (no date) (unknown) (unknown) Follow up/Referrals: (units unknown) (unknown) (unknown) (no date) (unknown) (unknown) Follow-up in 2 weeks for staple removal. (units unknown) (unknown) (unknown) (no date) (unknown) (unknown) Fraction of Inspired Oxygen 24 (units unknown) (unknown) (unknown) (no date) (unknown) (unknown) Glucose 129 H (units unknown) (unknown) (unknown) (no date) (unknown) (unknown) Has provider been notified: Yes (units unknown) (unknown) (unknown) (no date) (unknown) (unknown) Hct 22.4 L (units unknown) (unknown) (unknown) (no date) (unknown) (unknown) Heart burn (units unknown) (unknown) (unknown) (no date) (unknown) (unknown) Hgb 7.5 L (units unknown) (unknown) (unknown) (no date) (unknown) (unknown) History of Present Illness (units unknown) (unknown) (unknown) (no date) (unknown) (unknown) [address] [address] (units unknown) (unknown) (unknown) (no date) (unknown) (unknown) Erendira Long PA-C (units unknown) (unknown) (unknown) (no date) (unknown) (unknown) Laboratory Results - last 24 hr (units unknown) (unknown) (unknown) (no date) (unknown) (unknown) Labs (units unknown) (unknown) (unknown) (no date) (unknown) (unknown) Labs: (units unknown) (unknown) (unknown) (no date) (unknown) (unknown) Lymph # (Auto) 700 L (units unknown) (unknown) (unknown) (no date) (unknown) (unknown) Lymph % (Auto) 6.1 L D (units unknown) (unknown) (unknown) (no date) (unknown) (unknown) MCH 33.3 (units unknown) (unknown) (unknown) (no date) (unknown) (unknown) MCHC 33.6 (units unknown) (unknown) (unknown) (no date) (unknown) (unknown) MCV 99.1 (units unknown) (unknown) (unknown) (no date) (unknown) (unknown) Medical History (units unknown) (unknown) (unknown) (no date) (unknown) (unknown) [place] # (Auto) 600 (units unknown) (unknown) (unknown) (no date) (unknown) (unknown) [place] % (Auto) 5.5 (units unknown) (unknown) (unknown) (no date) (unknown) (unknown) Nasal Screen MRSA (PCR) Detected H (units unknown) (unknown) (unknown) (no date) (unknown) (unknown) Neck pain (units unknown) (unknown) (unknown) (no date) (unknown) (unknown) Neut # (Auto) 9400 H (units unknown) (unknown) (unknown) (no date) (unknown) (unknown) Neut % (Auto) 88.3 H D (units unknown) (unknown) (unknown) (no date) (unknown) (unknown) No Action (units unknown) (unknown) (unknown) (no date) (unknown) (unknown) No history of previous surgery (units unknown) (unknown) (unknown) (no date) (unknown) (unknown) Numbness and tingling (units unknown) (unknown) (unknown) (no date) (unknown) (unknown) Objective (units unknown) (unknown) (unknown) (no date) (unknown) (unknown) Osteoarthritis (units unknown) (unknown) (unknown) (no date) (unknown) (unknown) Other treatments: Lovenox 40 mg subcutaneous for 4 weeks for DVT prophylaxis. (units unknown) (unknown) (unknown) (no date) (unknown) (unknown) Oxygen Delivery Method Nasal Cannula (units unknown) (unknown) (unknown) (no date) (unknown) (unknown) Oxygen Delivery Method (units unknown) (unknown) (unknown) (no date) (unknown) (unknown) Oxygen Flow Rate 1 1 1 (units unknown) (unknown) (unknown) (no date) (unknown) (unknown) Oxygen Flow Rate 2 (units unknown) (unknown) (unknown) (no date) (unknown) (unknown) Oxygen Flow Rate (units unknown) (unknown) (unknown) (no date) (unknown) (unknown) PFSH (units unknown) (unknown) (unknown) (no date) (unknown) (unknown) Pain (units unknown) (unknown) (unknown) (no date) (unknown) (unknown) Patient: Donna Garcia MR#: [id number] (units unknown) (unknown) (unknown) (no date) (unknown) (unknown) Physician Instructions: Evaluate and Treat (units unknown) (unknown) (unknown) (no date) (unknown) (unknown) Physician Instructions: Evaluate and treat (units unknown) (unknown) (unknown) (no date) (unknown) (unknown) Plt Count 157 (units unknown) (unknown) (unknown) (no date) (unknown) (unknown) Potassium 4.1 (units unknown) (unknown) (unknown) (no date) (unknown) (unknown) Prescriptions: (units unknown) (unknown) (unknown) (no date) (unknown) (unknown) Provider (units unknown) (unknown) (unknown) (no date) (unknown) (unknown) Provider: Erendira Long P.A-C (units unknown) (unknown) (unknown) (no date) (unknown) (unknown) Pulse Oximetry 90 L 93 (units unknown) (unknown) (unknown) (no date) (unknown) (unknown) Pulse Oximetry 92 93 (units unknown) (unknown) (unknown) (no date) (unknown) (unknown) Pulse Oximetry 92 (units unknown) (unknown) (unknown) (no date) (unknown) (unknown) Pulse Oximetry 93 96 (units unknown) (unknown) (unknown) (no date) (unknown) (unknown) Pulse Oximetry 94 (units unknown) (unknown) (unknown) (no date) (unknown) (unknown) Pulse Oximetry 96 92 (units unknown) (unknown) (unknown) (no date) (unknown) (unknown) Pulse Oximetry 97 96 99 (units unknown) (unknown) (unknown) (no date) (unknown) (unknown) Pulse Oximetry (units unknown) (unknown) (unknown) (no date) (unknown) (unknown) Pulse Rate 73 (units unknown) (unknown) (unknown) (no date) (unknown) (unknown) Pulse Rate 90 90 (units unknown) (unknown) (unknown) (no date) (unknown) (unknown) Pulse Rate 93 H 92 H (units unknown) (unknown) (unknown) (no date) (unknown) (unknown) Pulse Rate 93 H 93 H (units unknown) (unknown) (unknown) (no date) (unknown) (unknown) Pulse Rate 96 H 97 H (units unknown) (unknown) (unknown) (no date) (unknown) (unknown) Pulse Rate 97 H 97 H 98 H (units unknown) (unknown) (unknown) (no date) (unknown) (unknown) Pulse Rate 99 H 96 H (units unknown) (unknown) (unknown) (no date) (unknown) (unknown) Pulse Rate 99 H (units unknown) (unknown) (unknown) (no date) (unknown) (unknown) Quality (units unknown) (unknown) (unknown) (no date) (unknown) (unknown) RBBB (right bundle branch block) (units unknown) (unknown) (unknown) (no date) (unknown) (unknown) RBC 2.26 L (units unknown) (unknown) (unknown) (no date) (unknown) (unknown) RDW 16.1 H (units unknown) (unknown) (unknown) (no date) (unknown) (unknown) Reason for consultation: Left femoral neck fracture (units unknown) (unknown) (unknown) (no date) (unknown) (unknown) Report to your healthcare provider any signs of infection, such as:: chills, (units unknown) (unknown) (unknown) (no date) (unknown) (unknown) Respiratory Rate 15 17 (units unknown) (unknown) (unknown) (no date) (unknown) (unknown) Respiratory Rate 16 (units unknown) (unknown) (unknown) (no date) (unknown) (unknown) Respiratory Rate 17 22 (units unknown) (unknown) (unknown) (no date) (unknown) (unknown) Respiratory Rate 18 18 (units unknown) (unknown) (unknown) (no date) (unknown) (unknown) Respiratory Rate 21 22 31 H (units unknown) (unknown) (unknown) (no date) (unknown) (unknown) Respiratory Rate 22 19 (units unknown) (unknown) (unknown) (no date) (unknown) (unknown) Respiratory Rate 25 H (units unknown) (unknown) (unknown) (no date) (unknown) (unknown) Respiratory Rate 26 H 17 (units unknown) (unknown) (unknown) (no date) (unknown) (unknown) Respiratory Rate 27 H (units unknown) (unknown) (unknown) (no date) (unknown) (unknown) Rx Instructions: (units unknown) (unknown) (unknown) (no date) (unknown) (unknown) SaO2/FiO2 Ratio 400 (units unknown) (unknown) (unknown) (no date) (unknown) (unknown) Seizures (units unknown) (unknown) (unknown) (no date) (unknown) (unknown) Signed By: (units unknown) (unknown) (unknown) (no date) (unknown) (unknown) Skin/Wound/Dressing Care (units unknown) (unknown) (unknown) (no date) (unknown) (unknown) Smoking Status: Smoker, status unknown (units unknown) (unknown) (unknown) (no date) (unknown) (unknown) Social History (units unknown) (unknown) (unknown) (no date) (unknown) (unknown) Sodium 137 (units unknown) (unknown) (unknown) (no date) (unknown) (unknown) Stand Alone Forms: Patient Portal/API, Surgery Discharge (units unknown) (unknown) (unknown) (no date) (unknown) (unknown) Surgical History (units unknown) (unknown) (unknown) (no date) (unknown) (unknown) TIA (transient ischemic attack) (units unknown) (unknown) (unknown) (no date) (unknown) (unknown) Temperature 97.4 F L (units unknown) (unknown) (unknown) (no date) (unknown) (unknown) Temperature 99.2 F (units unknown) (unknown) (unknown) (no date) (unknown) (unknown) Temperature (units unknown) (unknown) (unknown) (no date) (unknown) (unknown) VTE (units unknown) (unknown) (unknown) (no date) (unknown) (unknown) Visit Report/Discharge Packet (units unknown) (unknown) (unknown) (no date) (unknown) (unknown) Vital Signs (units unknown) (unknown) (unknown) (no date) (unknown) (unknown) WBC 10.7 D (units unknown) (unknown) (unknown) (no date) (unknown) (unknown) [Embedded Image Not Available] (units unknown) (unknown) (unknown) (no date) (unknown) (unknown) acetaminophen 500 mg Tablet (units unknown) (unknown) (unknown) (no date) (unknown) (unknown) alcohol intake: current (units unknown) (unknown) (unknown) (no date) (unknown) (unknown) apply to single knee, ankle, foot; for foot includes sole/toes/top of foot (units unknown) (unknown) (unknown) (no date) (unknown) (unknown) aspirin 81 mg Tablet,Delayed Release (Dr/Ec) (units unknown) (unknown) (unknown) (no date) (unknown) (unknown) atorvastatin 20 mg Tablet (units unknown) (unknown) (unknown) (no date) (unknown) (unknown) cholecalciferol (vitamin D3) 25 mcg (1,000 unit) tablet (units unknown) (unknown) (unknown) (no date) (unknown) (unknown) diclofenac sodium [Arthritis Pain (diclofenac)] 1 % Gel (units unknown) (unknown) (unknown) (no date) (unknown) (unknown) ferrous sulfate 325 mg (65 mg iron) Tablet,Delayed Release (Dr/Ec) (units unknown) (unknown) (unknown) (no date) (unknown) (unknown) fever, night sweats, unusual drainage and unusual redness (units unknown) (unknown) (unknown) (no date) (unknown) (unknown) gabapentin 300 mg Capsule (units unknown) (unknown) (unknown) (no date) (unknown) (unknown) household members: family (units unknown) (unknown) (unknown) (no date) (unknown) (unknown) levetiracetam 750 mg Tablet (units unknown) (unknown) (unknown) (no date) (unknown) (unknown) melatonin 3 mg Tablet (units unknown) (unknown) (unknown) (no date) (unknown) (unknown) metoprolol tartrate 25 mg Tablet (units unknown) (unknown) (unknown) (no date) (unknown) (unknown) needed. (units unknown) (unknown) (unknown) (no date) (unknown) (unknown) omeprazole 20 mg Capsule,Delayed Release(Dr/Ec) (units unknown) (unknown) (unknown) (no date) (unknown) (unknown) polyethylene glycol 3350 [Miralax] 17 gram Powder In Packet (units unknown) (unknown) (unknown) (no date) (unknown) (unknown) prazosin 1 mg Capsule (units unknown) (unknown) (unknown) (no date) (unknown) (unknown) sennosides [senna] 8.6 mg Tablet (units unknown) (unknown) (unknown) (no date) (unknown) (unknown) sertraline 100 mg Tablet (units unknown) (unknown) (unknown) (no date) (unknown) (unknown) staple removal.) (units unknown) (unknown) (unknown) (no date) (unknown) (unknown) while in bed. Posterior hip precautions for 6 weeks. (units unknown) (unknown) Result panel 144 (unknown) (no date) (unknown) (unknown) (no value) (units unknown) (unknown) (unknown) (no date) (unknown) (unknown) (past 8 hours): (units unknown) (unknown) (unknown) (no date) (unknown) (unknown) [id number] (units unknown) (unknown) (unknown) (no date) (unknown) (unknown) 02/08/23 02:41 (units unknown) (unknown) (unknown) (no date) (unknown) (unknown) 02/08/23 03:01 (units unknown) (unknown) (unknown) (no date) (unknown) (unknown) 02/08/23 21:59 (units unknown) (unknown) (unknown) (no date) (unknown) (unknown) 02/09/23 02/09/23 02/09/23 (units unknown) (unknown) (unknown) (no date) (unknown) (unknown) 02/09/23 08:00 (units unknown) (unknown) (unknown) (no date) (unknown) (unknown) 02/09/23 10:21 (units unknown) (unknown) (unknown) (no date) (unknown) (unknown) 02/09/23 (units unknown) (unknown) (unknown) (no date) (unknown) (unknown) 06:15 08:00 08:00 (units unknown) (unknown) (unknown) (no date) (unknown) (unknown) 06:16 02/09/23 (units unknown) (unknown) (unknown) (no date) (unknown) (unknown) 06:20 (units unknown) (unknown) (unknown) (no date) (unknown) (unknown) 06:30 02/09/23 (units unknown) (unknown) (unknown) (no date) (unknown) (unknown) 06:45 02/09/23 (units unknown) (unknown) (unknown) (no date) (unknown) (unknown) 06:45 (units unknown) (unknown) (unknown) (no date) (unknown) (unknown) 07:00 02/09/23 (units unknown) (unknown) (unknown) (no date) (unknown) (unknown) 07:00 (units unknown) (unknown) (unknown) (no date) (unknown) (unknown) 07:16 02/09/23 (units unknown) (unknown) (unknown) (no date) (unknown) (unknown) 07:30 02/09/23 (units unknown) (unknown) (unknown) (no date) (unknown) (unknown) 07:30 (units unknown) (unknown) (unknown) (no date) (unknown) (unknown) 07:45 02/09/23 (units unknown) (unknown) (unknown) (no date) (unknown) (unknown) 07:45 (units unknown) (unknown) (unknown) (no date) (unknown) (unknown) 08:00 02/09/23 (units unknown) (unknown) (unknown) (no date) (unknown) (unknown) 08:01 02/09/23 (units unknown) (unknown) (unknown) (no date) (unknown) (unknown) 08:01 (units unknown) (unknown) (unknown) (no date) (unknown) (unknown) 08:30 02/09/23 (units unknown) (unknown) (unknown) (no date) (unknown) (unknown) 09:12 (units unknown) (unknown) (unknown) (no date) (unknown) (unknown) 09:30 02/09/23 (units unknown) (unknown) (unknown) (no date) (unknown) (unknown) 1 mg PO BEDTIME (units unknown) (unknown) (unknown) (no date) (unknown) (unknown) 1,000 mg PO TID (units unknown) (unknown) (unknown) (no date) (unknown) (unknown) 1,000 unit PO DAILY (units unknown) (unknown) (unknown) (no date) (unknown) (unknown) 100 mg PO BEDTIME (units unknown) (unknown) (unknown) (no date) (unknown) (unknown) 10:00 02/09/23 (units unknown) (unknown) (unknown) (no date) (unknown) (unknown) 10:07 02/09/23 (units unknown) (unknown) (unknown) (no date) (unknown) (unknown) 10:07 (units unknown) (unknown) (unknown) (no date) (unknown) (unknown) 12.5 mg PO BID (units unknown) (unknown) (unknown) (no date) (unknown) (unknown) 12:00 (units unknown) (unknown) (unknown) (no date) (unknown) (unknown) 17 g PO BID (units unknown) (unknown) (unknown) (no date) (unknown) (unknown) 20 mg PO BEDTIME (units unknown) (unknown) (unknown) (no date) (unknown) (unknown) 20 mg PO DAILY (units unknown) (unknown) (unknown) (no date) (unknown) (unknown) 300 mg PO DAILY (units unknown) (unknown) (unknown) (no date) (unknown) (unknown) 325 mg PO DAILY (units unknown) (unknown) (unknown) (no date) (unknown) (unknown) 4 g TOPICAL QID (units unknown) (unknown) (unknown) (no date) (unknown) (unknown) 6 mg PO BEDTIME (units unknown) (unknown) (unknown) (no date) (unknown) (unknown) 600 mg PO BID (units unknown) (unknown) (unknown) (no date) (unknown) (unknown) 750 mg PO BID (units unknown) (unknown) (unknown) (no date) (unknown) (unknown) 8.6 mg PO BID (units unknown) (unknown) (unknown) (no date) (unknown) (unknown) 81 mg PO DAILY (units unknown) (unknown) (unknown) (no date) (unknown) (unknown) Activity: Weightbear as tolerated with assistive devices. Abduction pillow (units unknown) (unknown) (unknown) (no date) (unknown) (unknown) Age/Sex: 77 / M (units unknown) (unknown) (unknown) (no date) (unknown) (unknown) Alzheimer's dementia (units unknown) (unknown) (unknown) (no date) (unknown) (unknown) Anesthesia Type: General and Local (units unknown) (unknown) (unknown) (no date) (unknown) (unknown) Anxiety (units unknown) (unknown) (unknown) (no date) (unknown) (unknown) Assessment and Plan (units unknown) (unknown) (unknown) (no date) (unknown) (unknown) Assessment: (units unknown) (unknown) (unknown) (no date) (unknown) (unknown) Porter Luggage: Ania Hernandez (units unknown) (unknown) (unknown) (no date) (unknown) (unknown) At noon (units unknown) (unknown) (unknown) (no date) (unknown) (unknown) BUN 18 (units unknown) (unknown) (unknown) (no date) (unknown) (unknown) BUN/Creatinine Ratio 24.7 H (units unknown) (unknown) (unknown) (no date) (unknown) (unknown) Baso # (Auto) 0 (units unknown) (unknown) (unknown) (no date) (unknown) (unknown) Baso % (Auto) 0.1 (units unknown) (unknown) (unknown) (no date) (unknown) (unknown) Blood Pressure 105/57 L (units unknown) (unknown) (unknown) (no date) (unknown) (unknown) Blood Pressure 83/53 L 90/51 L (units unknown) (unknown) (unknown) (no date) (unknown) (unknown) Blood Pressure 89/53 L (units unknown) (unknown) (unknown) (no date) (unknown) (unknown) Blood Pressure 93/51 L (units unknown) (unknown) (unknown) (no date) (unknown) (unknown) Blood Pressure 97/55 L 97/54 L (units unknown) (unknown) (unknown) (no date) (unknown) (unknown) Blood Pressure 98/53 L (units unknown) (unknown) (unknown) (no date) (unknown) (unknown) Blood Pressure 99/56 L 95/64 (units unknown) (unknown) (unknown) (no date) (unknown) (unknown) Blood Pressure (units unknown) (unknown) (unknown) (no date) (unknown) (unknown) Blood products transfused: none (units unknown) (unknown) (unknown) (no date) (unknown) (unknown) CPT code 02216 (units unknown) (unknown) (unknown) (no date) (unknown) (unknown) Calcium 7.6 L (units unknown) (unknown) (unknown) (no date) (unknown) (unknown) Carbon Dioxide 24 (units unknown) (unknown) (unknown) (no date) (unknown) (unknown) Chest pain (units unknown) (unknown) (unknown) (no date) (unknown) (unknown) Chief complaint: Left femoral neck fracture (units unknown) (unknown) (unknown) (no date) (unknown) (unknown) Chloride 107 (units unknown) (unknown) (unknown) (no date) (unknown) (unknown) Click Yes if Unassisted: Yes (units unknown) (unknown) (unknown) (no date) (unknown) (unknown) Closure Type: primary (units unknown) (unknown) (unknown) (no date) (unknown) (unknown) Comment: wbat , php x 6 wks, abd pillow when in bed (units unknown) (unknown) (unknown) (no date) (unknown) (unknown) Comment: (units unknown) (unknown) (unknown) (no date) (unknown) (unknown) Mariaa Soares MD [Physician] - 2 Weeks (Follow up 2 weeks after surgery for (units unknown) (unknown) (unknown) (no date) (unknown) (unknown) Consult to Discharge Planning Routine (units unknown) (unknown) (unknown) (no date) (unknown) (unknown) Consult to Occupational Therapy Evaluate + Treat (units unknown) (unknown) (unknown) (no date) (unknown) (unknown) Consult to Physical Therapy Evaluate + Treat (units unknown) (unknown) (unknown) (no date) (unknown) (unknown) Consult to Physician Routine (units unknown) (unknown) (unknown) (no date) (unknown) (unknown) Consulting Provider: Mariaa Soares (units unknown) (unknown) (unknown) (no date) (unknown) (unknown) Consults: (units unknown) (unknown) (unknown) (no date) (unknown) (unknown) Creatinine 0.73 (units unknown) (unknown) (unknown) (no date) (unknown) (unknown) : 1945 Acct:[id number] (units unknown) (unknown) (unknown) (no date) (unknown) (unknown) Date of Service: 02/08/23 (units unknown) (unknown) (unknown) (no date) (unknown) (unknown) Date of admission: (units unknown) (unknown) (unknown) (no date) (unknown) (unknown) Date of procedure: 02/08/23 (units unknown) (unknown) (unknown) (no date) (unknown) (unknown) Deep Vein Thrombosis/Pulmonary Embolism Present on Admission: No (units unknown) (unknown) (unknown) (no date) (unknown) (unknown) Dementia (units unknown) (unknown) (unknown) (no date) (unknown) (unknown) Depression (units unknown) (unknown) (unknown) (no date) (unknown) (unknown) Diet/Activity/Treatm ents (units unknown) (unknown) (unknown) (no date) (unknown) (unknown) Discharge Assessment + Plan (units unknown) (unknown) (unknown) (no date) (unknown) (unknown) Discharge Date: 02/10/23 (units unknown) (unknown) (unknown) (no date) (unknown) (unknown) Discharge Diagnosis: (units unknown) (unknown) (unknown) (no date) (unknown) (unknown) Discharge Plan (units unknown) (unknown) (unknown) (no date) (unknown) (unknown) Discharge Providers (units unknown) (unknown) (unknown) (no date) (unknown) (unknown) Discharge Summary (units unknown) (unknown) (unknown) (no date) (unknown) (unknown) Discharge orders + Medications (units unknown) (unknown) (unknown) (no date) (unknown) (unknown) Discharge provider: (units unknown) (unknown) (unknown) (no date) (unknown) (unknown) Displaced femoral neck fracture severe hip arthritic changes (units unknown) (unknown) (unknown) (no date) (unknown) (unknown) Distal post centralizer 10 mm (units unknown) (unknown) (unknown) (no date) (unknown) (unknown) Dressing: May shower with Aquacel dressing but no soaking incision. Change as (units unknown) (unknown) (unknown) (no date) (unknown) (unknown) During the operation, the services of a physician surgical appliance fitter were (units unknown) (unknown) (unknown) (no date) (unknown) (unknown) Easy bruisability (units unknown) (unknown) (unknown) (no date) (unknown) (unknown) Eos # (Auto) 0 (units unknown) (unknown) (unknown) (no date) (unknown) (unknown) Eos % (Auto) 0.0 L (units unknown) (unknown) (unknown) (no date) (unknown) (unknown) Epilepsy (units unknown) (unknown) (unknown) (no date) (unknown) (unknown) Estimated Blood Loss (mL): 200 (units unknown) (unknown) (unknown) (no date) (unknown) (unknown) Estimated GFR > 60 (units unknown) (unknown) (unknown) (no date) (unknown) (unknown) Exam Narrative: (units unknown) (unknown) (unknown) (no date) (unknown) (unknown) Exam (units unknown) (unknown) (unknown) (no date) (unknown) (unknown) Findings: (units unknown) (unknown) (unknown) (no date) (unknown) (unknown) Follow up/Referrals: (units unknown) (unknown) (unknown) (no date) (unknown) (unknown) Follow-up in 2 weeks for staple removal. (units unknown) (unknown) (unknown) (no date) (unknown) (unknown) Fraction of Inspired Oxygen 24 (units unknown) (unknown) (unknown) (no date) (unknown) (unknown) Glucose 129 H (units unknown) (unknown) (unknown) (no date) (unknown) (unknown) Has provider been notified: Yes (units unknown) (unknown) (unknown) (no date) (unknown) (unknown) Hct 22.4 L (units unknown) (unknown) (unknown) (no date) (unknown) (unknown) Heart burn (units unknown) (unknown) (unknown) (no date) (unknown) (unknown) Hemiarthroplasty for left femoral neck fracture fixation with endoprosthesis.? (units unknown) (unknown) (unknown) (no date) (unknown) (unknown) Hgb 7.5 L (units unknown) (unknown) (unknown) (no date) (unknown) (unknown) His pain has been well controlled with medication. He will return to his (units unknown) (unknown) (unknown) (no date) (unknown) (unknown) History of Present Illness (units unknown) (unknown) (unknown) (no date) (unknown) (unknown) Hospital Course (units unknown) (unknown) (unknown) (no date) (unknown) (unknown) Hospital Course: (units unknown) (unknown) (unknown) (no date) (unknown) (unknown) Indications: (units unknown) (unknown) (unknown) (no date) (unknown) (unknown) [address] [address] (units unknown) (unknown) (unknown) (no date) (unknown) (unknown) Erendira Long PA-C (units unknown) (unknown) (unknown) (no date) (unknown) (unknown) Laboratory Results - last 24 hr (units unknown) (unknown) (unknown) (no date) (unknown) (unknown) Labs (units unknown) (unknown) (unknown) (no date) (unknown) (unknown) Labs: (units unknown) (unknown) (unknown) (no date) (unknown) (unknown) Left femoral neck fracture, S/p Left hip hemiarthroplasty (units unknown) (unknown) (unknown) (no date) (unknown) (unknown) Left hip arthritis (units unknown) (unknown) (unknown) (no date) (unknown) (unknown) Lymph # (Auto) 700 L (units unknown) (unknown) (unknown) (no date) (unknown) (unknown) Lymph % (Auto) 6.1 L D (units unknown) (unknown) (unknown) (no date) (unknown) (unknown) MCH 33.3 (units unknown) (unknown) (unknown) (no date) (unknown) (unknown) MCHC 33.6 (units unknown) (unknown) (unknown) (no date) (unknown) (unknown) MCV 99.1 (units unknown) (unknown) (unknown) (no date) (unknown) (unknown) Medical History (units unknown) (unknown) (unknown) (no date) (unknown) (unknown) [place] # (Auto) 600 (units unknown) (unknown) (unknown) (no date) (unknown) (unknown) [place] % (Auto) 5.5 (units unknown) (unknown) (unknown) (no date) (unknown) (unknown) Narrative (units unknown) (unknown) (unknown) (no date) (unknown) (unknown) Nasal Screen MRSA (PCR) Detected H (units unknown) (unknown) (unknown) (no date) (unknown) (unknown) Neck pain (units unknown) (unknown) (unknown) (no date) (unknown) (unknown) Neut # (Auto) 9400 H (units unknown) (unknown) (unknown) (no date) (unknown) (unknown) Neut % (Auto) 88.3 H D (units unknown) (unknown) (unknown) (no date) (unknown) (unknown) No Action (units unknown) (unknown) (unknown) (no date) (unknown) (unknown) No history of previous surgery (units unknown) (unknown) (unknown) (no date) (unknown) (unknown) Numbness and tingling (units unknown) (unknown) (unknown) (no date) (unknown) (unknown) Objective (units unknown) (unknown) (unknown) (no date) (unknown) (unknown) Operative Date/Time/Diagnoses (units unknown) (unknown) (unknown) (no date) (unknown) (unknown) Operative Notes (units unknown) (unknown) (unknown) (no date) (unknown) (unknown) Osteoarthritis (units unknown) (unknown) (unknown) (no date) (unknown) (unknown) Other treatments: Lovenox 40 mg subcutaneous for 4 weeks for DVT prophylaxis. (units unknown) (unknown) (unknown) (no date) (unknown) (unknown) Oxygen Delivery Method Nasal Cannula (units unknown) (unknown) (unknown) (no date) (unknown) (unknown) Oxygen Delivery Method (units unknown) (unknown) (unknown) (no date) (unknown) (unknown) Oxygen Flow Rate 1 1 1 (units unknown) (unknown) (unknown) (no date) (unknown) (unknown) Oxygen Flow Rate 2 (units unknown) (unknown) (unknown) (no date) (unknown) (unknown) Oxygen Flow Rate (units unknown) (unknown) (unknown) (no date) (unknown) (unknown) PFSH (units unknown) (unknown) (unknown) (no date) (unknown) (unknown) POA on the telephone and they were given the opportunity to ask questions.? The (units unknown) (unknown) (unknown) (no date) (unknown) (unknown) Pain (units unknown) (unknown) (unknown) (no date) (unknown) (unknown) Patient is a 77-year-old male with a history of seizures and dementia who lives (units unknown) (unknown) (unknown) (no date) (unknown) (unknown) Patient's postoperative course is complicated by Alzheimer's dementia and bed (units unknown) (unknown) (unknown) (no date) (unknown) (unknown) Patient: Donna Garcia MR#: [id number] (units unknown) (unknown) (unknown) (no date) (unknown) (unknown) Physician Instructions: Evaluate and Treat (units unknown) (unknown) (unknown) (no date) (unknown) (unknown) Physician Instructions: Evaluate and treat (units unknown) (unknown) (unknown) (no date) (unknown) (unknown) Plan of Treatment: (units unknown) (unknown) (unknown) (no date) (unknown) (unknown) Pleasant, demented 77-year-old male. Awake, alert, oriented to self. Able to (units unknown) (unknown) (unknown) (no date) (unknown) (unknown) Plt Count 157 (units unknown) (unknown) (unknown) (no date) (unknown) (unknown) Post-op diagnosis: same (units unknown) (unknown) (unknown) (no date) (unknown) (unknown) Potassium 4.1 (units unknown) (unknown) (unknown) (no date) (unknown) (unknown) Pre-op diagnosis: Left femoral neck fracture displaced (units unknown) (unknown) (unknown) (no date) (unknown) (unknown) Prescriptions: (units unknown) (unknown) (unknown) (no date) (unknown) (unknown) Procedure + Clinicians (units unknown) (unknown) (unknown) (no date) (unknown) (unknown) Procedure: (units unknown) (unknown) (unknown) (no date) (unknown) (unknown) Prosthetic devices, grafts, tissues, transplants, or devices: (units unknown) (unknown) (unknown) (no date) (unknown) (unknown) Provider (units unknown) (unknown) (unknown) (no date) (unknown) (unknown) Provider: Erendira Long P.A-C (units unknown) (unknown) (unknown) (no date) (unknown) (unknown) Pulse Oximetry 90 L 93 (units unknown) (unknown) (unknown) (no date) (unknown) (unknown) Pulse Oximetry 92 93 (units unknown) (unknown) (unknown) (no date) (unknown) (unknown) Pulse Oximetry 92 (units unknown) (unknown) (unknown) (no date) (unknown) (unknown) Pulse Oximetry 93 96 (units unknown) (unknown) (unknown) (no date) (unknown) (unknown) Pulse Oximetry 94 (units unknown) (unknown) (unknown) (no date) (unknown) (unknown) Pulse Oximetry 96 92 (units unknown) (unknown) (unknown) (no date) (unknown) (unknown) Pulse Oximetry 97 96 99 (units unknown) (unknown) (unknown) (no date) (unknown) (unknown) Pulse Oximetry (units unknown) (unknown) (unknown) (no date) (unknown) (unknown) Pulse Rate 73 (units unknown) (unknown) (unknown) (no date) (unknown) (unknown) Pulse Rate 90 90 (units unknown) (unknown) (unknown) (no date) (unknown) (unknown) Pulse Rate 93 H 92 H (units unknown) (unknown) (unknown) (no date) (unknown) (unknown) Pulse Rate 93 H 93 H (units unknown) (unknown) (unknown) (no date) (unknown) (unknown) Pulse Rate 96 H 97 H (units unknown) (unknown) (unknown) (no date) (unknown) (unknown) Pulse Rate 97 H 97 H 98 H (units unknown) (unknown) (unknown) (no date) (unknown) (unknown) Pulse Rate 99 H 96 H (units unknown) (unknown) (unknown) (no date) (unknown) (unknown) Pulse Rate 99 H (units unknown) (unknown) (unknown) (no date) (unknown) (unknown) Quality (units unknown) (unknown) (unknown) (no date) (unknown) (unknown) RBBB (right bundle branch block) (units unknown) (unknown) (unknown) (no date) (unknown) (unknown) RBC 2.26 L (units unknown) (unknown) (unknown) (no date) (unknown) (unknown) RDW 16.1 H (units unknown) (unknown) (unknown) (no date) (unknown) (unknown) Reason for consultation: Left femoral neck fracture (units unknown) (unknown) (unknown) (no date) (unknown) (unknown) Report to your healthcare provider any signs of infection, such as:: chills, (units unknown) (unknown) (unknown) (no date) (unknown) (unknown) Respiratory Rate 15 17 (units unknown) (unknown) (unknown) (no date) (unknown) (unknown) Respiratory Rate 16 (units unknown) (unknown) (unknown) (no date) (unknown) (unknown) Respiratory Rate 17 22 (units unknown) (unknown) (unknown) (no date) (unknown) (unknown) Respiratory Rate 18 18 (units unknown) (unknown) (unknown) (no date) (unknown) (unknown) Respiratory Rate 21 22 31 H (units unknown) (unknown) (unknown) (no date) (unknown) (unknown) Respiratory Rate 22 19 (units unknown) (unknown) (unknown) (no date) (unknown) (unknown) Respiratory Rate 25 H (units unknown) (unknown) (unknown) (no date) (unknown) (unknown) Respiratory Rate 26 H 17 (units unknown) (unknown) (unknown) (no date) (unknown) (unknown) Respiratory Rate 27 H (units unknown) (unknown) (unknown) (no date) (unknown) (unknown) Rx Instructions: (units unknown) (unknown) (unknown) (no date) (unknown) (unknown) SaO2/FiO2 Ratio 400 (units unknown) (unknown) (unknown) (no date) (unknown) (unknown) Same procedure as scheduled: Yes (units unknown) (unknown) (unknown) (no date) (unknown) (unknown) Seizures (units unknown) (unknown) (unknown) (no date) (unknown) (unknown) Signed By: (units unknown) (unknown) (unknown) (no date) (unknown) (unknown) Since patient is bed-bound at baseline, he has not worked with physical therapy. (units unknown) (unknown) (unknown) (no date) (unknown) (unknown) Skin/Wound/Dressing Care (units unknown) (unknown) (unknown) (no date) (unknown) (unknown) Contreras [employer] Nephew Synergy unipolar femoral component cobalt chromium size 12 (units unknown) (unknown) (unknown) (no date) (unknown) (unknown) Contreras [employer] Nephew tandem unipolar +4 taper sleeve and tandem unipolar cobalt (units unknown) (unknown) (unknown) (no date) (unknown) (unknown) Smoking Status: Smoker, status unknown (units unknown) (unknown) (unknown) (no date) (unknown) (unknown) Social History (units unknown) (unknown) (unknown) (no date) (unknown) (unknown) Sodium 137 (units unknown) (unknown) (unknown) (no date) (unknown) (unknown) Specimen(s): none sent (units unknown) (unknown) (unknown) (no date) (unknown) (unknown) Stand Alone Forms: Patient Portal/API, Surgery Discharge (units unknown) (unknown) (unknown) (no date) (unknown) (unknown) Strength and sensation intact to right lower extremity. Strength 0/5 to left (units unknown) (unknown) (unknown) (no date) (unknown) (unknown) Summary (units unknown) (unknown) (unknown) (no date) (unknown) (unknown) Surgeon: Mariaa Soares (units unknown) (unknown) (unknown) (no date) (unknown) (unknown) Surgical History (units unknown) (unknown) (unknown) (no date) (unknown) (unknown) TIA (transient ischemic attack) (units unknown) (unknown) (unknown) (no date) (unknown) (unknown) Temperature 97.4 F L (units unknown) (unknown) (unknown) (no date) (unknown) (unknown) Temperature 99.2 F (units unknown) (unknown) (unknown) (no date) (unknown) (unknown) Temperature (units unknown) (unknown) (unknown) (no date) (unknown) (unknown) Time of procedure: 18:30 (units unknown) (unknown) (unknown) (no date) (unknown) (unknown) Tourniquet time (min): 0 (units unknown) (unknown) (unknown) (no date) (unknown) (unknown) VTE (units unknown) (unknown) (unknown) (no date) (unknown) (unknown) Visit Report/Discharge Packet (units unknown) (unknown) (unknown) (no date) (unknown) (unknown) Vital Signs (units unknown) (unknown) (unknown) (no date) (unknown) (unknown) WBC 10.7 D (units unknown) (unknown) (unknown) (no date) (unknown) (unknown) [Embedded Image Not Available] (units unknown) (unknown) (unknown) (no date) (unknown) (unknown) acetaminophen 500 mg Tablet (units unknown) (unknown) (unknown) (no date) (unknown) (unknown) additional information.? After the patient's fall he was unable to weightbear he (units unknown) (unknown) (unknown) (no date) (unknown) (unknown) adult family tomorrow, ambulance transfer scheduled for tomorrow at noon. He (units unknown) (unknown) (unknown) (no date) (unknown) (unknown) alcohol intake: current (units unknown) (unknown) (unknown) (no date) (unknown) (unknown) ambulator with a walker and is limited by his dementia and history of seizures (units unknown) (unknown) (unknown) (no date) (unknown) (unknown) and severe hip arthritis.? He was indicated for hemiarthroplasty to treat his (units unknown) (unknown) (unknown) (no date) (unknown) (unknown) answer simple questions. Left hip intraoperative dressing clean, dry, intact. (units unknown) (unknown) (unknown) (no date) (unknown) (unknown) apply to single knee, ankle, foot; for foot includes sole/toes/top of foot (units unknown) (unknown) (unknown) (no date) (unknown) (unknown) aspirin 81 mg Tablet,Delayed Release (Dr/Ec) (units unknown) (unknown) (unknown) (no date) (unknown) (unknown) atorvastatin 20 mg Tablet (units unknown) (unknown) (unknown) (no date) (unknown) (unknown) being present this would extended the operative procedure and made the procedure (units unknown) (unknown) (unknown) (no date) (unknown) (unknown) bound status at baseline. His pain has been well controlled. (units unknown) (unknown) (unknown) (no date) (unknown) (unknown) cardiopulmonary complications and .? The power of state's attorney expressed a (units unknown) (unknown) (unknown) (no date) (unknown) (unknown) carry out the operation safely and efficiently.? 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 The risks and benefits (units unknown) (unknown) (unknown) (no date) (unknown) (unknown) dorsiflexion, 4/5 to plantar flexion. (units unknown) (unknown) (unknown) (no date) (unknown) (unknown) ferrous sulfate 325 mg (65 mg iron) Tablet,Delayed Release (Dr/Ec) (units unknown) (unknown) (unknown) (no date) (unknown) (unknown) fever, night sweats, unusual drainage and unusual redness (units unknown) (unknown) (unknown) (no date) (unknown) (unknown) for the surgical procedure and to maintain the limb in a proper position to (units unknown) (unknown) (unknown) (no date) (unknown) (unknown) fracture.? He has underlying severe bilateral hip arthritis.? He was an (units unknown) (unknown) (unknown) (no date) (unknown) (unknown) gabapentin 300 mg Capsule (units unknown) (unknown) (unknown) (no date) (unknown) (unknown) household members: family (units unknown) (unknown) (unknown) (no date) (unknown) (unknown) in a snf that had a fall.? He is only able to give us very limited (units unknown) (unknown) (unknown) (no date) (unknown) (unknown) information but his sister is power of state's attorney and was able to provide (units unknown) (unknown) (unknown) (no date) (unknown) (unknown) levetiracetam 750 mg Tablet (units unknown) (unknown) (unknown) (no date) (unknown) (unknown) medically indicated and necessary to provide the exposure of the operative site (units unknown) (unknown) (unknown) (no date) (unknown) (unknown) melatonin 3 mg Tablet (units unknown) (unknown) (unknown) (no date) (unknown) (unknown) metoprolol tartrate 25 mg Tablet (units unknown) (unknown) (unknown) (no date) (unknown) (unknown) needed. (units unknown) (unknown) (unknown) (no date) (unknown) (unknown) of the procedure have been discussed with the patient and separately with the (units unknown) (unknown) (unknown) (no date) (unknown) (unknown) omeprazole 20 mg Capsule,Delayed Release(Dr/Ec) (units unknown) (unknown) (unknown) (no date) (unknown) (unknown) polyethylene glycol 3350 [Miralax] 17 gram Powder In Packet (units unknown) (unknown) (unknown) (no date) (unknown) (unknown) prazosin 1 mg Capsule (units unknown) (unknown) (unknown) (no date) (unknown) (unknown) proceed.? Telephone Consent was signed and witnessed (units unknown) (unknown) (unknown) (no date) (unknown) (unknown) risks of surgery include but are not limited to infection, fracture, (units unknown) (unknown) (unknown) (no date) (unknown) (unknown) sennosides [senna] 8.6 mg Tablet (units unknown) (unknown) (unknown) (no date) (unknown) (unknown) sertraline 100 mg Tablet (units unknown) (unknown) (unknown) (no date) (unknown) (unknown) small bone plug restrictor (units unknown) (unknown) (unknown) (no date) (unknown) (unknown) staple removal.) (units unknown) (unknown) (unknown) (no date) (unknown) (unknown) technically more difficult to perform. (units unknown) (unknown) (unknown) (no date) (unknown) (unknown) thorough understanding of the risks and benefits of surgery and has elected to (units unknown) (unknown) (unknown) (no date) (unknown) (unknown) was brought to [facility] and found to have a displaced left femoral neck (units unknown) (unknown) (unknown) (no date) (unknown) (unknown) while in bed. Posterior hip precautions for 6 weeks. (units unknown) (unknown) (unknown) (no date) (unknown) (unknown) will follow up with Orthopedics 2 weeks after surgery for staple removal. (units unknown) (unknown) Result panel 145 (unknown) (no date) (unknown) (unknown) (no value) (units unknown) (unknown) (unknown) (no date) (unknown) (unknown) (past 8 hours): (units unknown) (unknown) (unknown) (no date) (unknown) (unknown) [id number] (units unknown) (unknown) (unknown) (no date) (unknown) (unknown) 02/08/23 02:41 (units unknown) (unknown) (unknown) (no date) (unknown) (unknown) 02/08/23 03:01 (units unknown) (unknown) (unknown) (no date) (unknown) (unknown) 02/08/23 21:59 (units unknown) (unknown) (unknown) (no date) (unknown) (unknown) 02/09/23 02/09/23 02/09/23 (units unknown) (unknown) (unknown) (no date) (unknown) (unknown) 02/09/23 08:00 (units unknown) (unknown) (unknown) (no date) (unknown) (unknown) 02/09/23 10:21 (units unknown) (unknown) (unknown) (no date) (unknown) (unknown) 02/09/23 (units unknown) (unknown) (unknown) (no date) (unknown) (unknown) 06:15 08:00 08:00 (units unknown) (unknown) (unknown) (no date) (unknown) (unknown) 06:16 02/09/23 (units unknown) (unknown) (unknown) (no date) (unknown) (unknown) 06:20 (units unknown) (unknown) (unknown) (no date) (unknown) (unknown) 06:30 02/09/23 (units unknown) (unknown) (unknown) (no date) (unknown) (unknown) 06:45 02/09/23 (units unknown) (unknown) (unknown) (no date) (unknown) (unknown) 06:45 (units unknown) (unknown) (unknown) (no date) (unknown) (unknown) 07:00 02/09/23 (units unknown) (unknown) (unknown) (no date) (unknown) (unknown) 07:00 (units unknown) (unknown) (unknown) (no date) (unknown) (unknown) 07:16 02/09/23 (units unknown) (unknown) (unknown) (no date) (unknown) (unknown) 07:30 02/09/23 (units unknown) (unknown) (unknown) (no date) (unknown) (unknown) 07:30 (units unknown) (unknown) (unknown) (no date) (unknown) (unknown) 07:45 02/09/23 (units unknown) (unknown) (unknown) (no date) (unknown) (unknown) 07:45 (units unknown) (unknown) (unknown) (no date) (unknown) (unknown) 08:00 02/09/23 (units unknown) (unknown) (unknown) (no date) (unknown) (unknown) 08:01 02/09/23 (units unknown) (unknown) (unknown) (no date) (unknown) (unknown) 08:01 (units unknown) (unknown) (unknown) (no date) (unknown) (unknown) 08:30 02/09/23 (units unknown) (unknown) (unknown) (no date) (unknown) (unknown) 09:12 (units unknown) (unknown) (unknown) (no date) (unknown) (unknown) 09:30 02/09/23 (units unknown) (unknown) (unknown) (no date) (unknown) (unknown) 1 mg PO BEDTIME (units unknown) (unknown) (unknown) (no date) (unknown) (unknown) 1,000 mg PO TID (units unknown) (unknown) (unknown) (no date) (unknown) (unknown) 1,000 unit PO DAILY (units unknown) (unknown) (unknown) (no date) (unknown) (unknown) 100 mg PO BEDTIME (units unknown) (unknown) (unknown) (no date) (unknown) (unknown) 10:00 02/09/23 (units unknown) (unknown) (unknown) (no date) (unknown) (unknown) 10:07 02/09/23 (units unknown) (unknown) (unknown) (no date) (unknown) (unknown) 10:07 (units unknown) (unknown) (unknown) (no date) (unknown) (unknown) 12.5 mg PO BID (units unknown) (unknown) (unknown) (no date) (unknown) (unknown) 12:00 (units unknown) (unknown) (unknown) (no date) (unknown) (unknown) 17 g PO BID (units unknown) (unknown) (unknown) (no date) (unknown) (unknown) 20 mg PO BEDTIME (units unknown) (unknown) (unknown) (no date) (unknown) (unknown) 20 mg PO DAILY (units unknown) (unknown) (unknown) (no date) (unknown) (unknown) 300 mg PO DAILY (units unknown) (unknown) (unknown) (no date) (unknown) (unknown) 325 mg PO DAILY (units unknown) (unknown) (unknown) (no date) (unknown) (unknown) 4 g TOPICAL QID (units unknown) (unknown) (unknown) (no date) (unknown) (unknown) 6 mg PO BEDTIME (units unknown) (unknown) (unknown) (no date) (unknown) (unknown) 600 mg PO BID (units unknown) (unknown) (unknown) (no date) (unknown) (unknown) 750 mg PO BID (units unknown) (unknown) (unknown) (no date) (unknown) (unknown) 8.6 mg PO BID (units unknown) (unknown) (unknown) (no date) (unknown) (unknown) 81 mg PO DAILY (units unknown) (unknown) (unknown) (no date) (unknown) (unknown) Activity: Weightbear as tolerated with assistive devices. Abduction pillow (units unknown) (unknown) (unknown) (no date) (unknown) (unknown) Age/Sex: 77 / M (units unknown) (unknown) (unknown) (no date) (unknown) (unknown) Alzheimer's dementia (units unknown) (unknown) (unknown) (no date) (unknown) (unknown) Anesthesia Type: General and Local (units unknown) (unknown) (unknown) (no date) (unknown) (unknown) Anxiety (units unknown) (unknown) (unknown) (no date) (unknown) (unknown) Assessment and Plan (units unknown) (unknown) (unknown) (no date) (unknown) (unknown) Assessment: (units unknown) (unknown) (unknown) (no date) (unknown) (unknown) Porter Luggage: Ania Hernandez (units unknown) (unknown) (unknown) (no date) (unknown) (unknown) At noon (units unknown) (unknown) (unknown) (no date) (unknown) (unknown) BUN 18 (units unknown) (unknown) (unknown) (no date) (unknown) (unknown) BUN/Creatinine Ratio 24.7 H (units unknown) (unknown) (unknown) (no date) (unknown) (unknown) Baso # (Auto) 0 (units unknown) (unknown) (unknown) (no date) (unknown) (unknown) Baso % (Auto) 0.1 (units unknown) (unknown) (unknown) (no date) (unknown) (unknown) Blood Pressure 105/57 L (units unknown) (unknown) (unknown) (no date) (unknown) (unknown) Blood Pressure 83/53 L 90/51 L (units unknown) (unknown) (unknown) (no date) (unknown) (unknown) Blood Pressure 89/53 L (units unknown) (unknown) (unknown) (no date) (unknown) (unknown) Blood Pressure 93/51 L (units unknown) (unknown) (unknown) (no date) (unknown) (unknown) Blood Pressure 97/55 L 97/54 L (units unknown) (unknown) (unknown) (no date) (unknown) (unknown) Blood Pressure 98/53 L (units unknown) (unknown) (unknown) (no date) (unknown) (unknown) Blood Pressure 99/56 L 95/64 (units unknown) (unknown) (unknown) (no date) (unknown) (unknown) Blood Pressure (units unknown) (unknown) (unknown) (no date) (unknown) (unknown) Blood products transfused: none (units unknown) (unknown) (unknown) (no date) (unknown) (unknown) CPT code 82196 (units unknown) (unknown) (unknown) (no date) (unknown) (unknown) Calcium 7.6 L (units unknown) (unknown) (unknown) (no date) (unknown) (unknown) Carbon Dioxide 24 (units unknown) (unknown) (unknown) (no date) (unknown) (unknown) Chest pain (units unknown) (unknown) (unknown) (no date) (unknown) (unknown) Chief complaint: Left femoral neck fracture (units unknown) (unknown) (unknown) (no date) (unknown) (unknown) Chloride 107 (units unknown) (unknown) (unknown) (no date) (unknown) (unknown) Click Yes if Unassisted: Yes (units unknown) (unknown) (unknown) (no date) (unknown) (unknown) Closure Type: primary (units unknown) (unknown) (unknown) (no date) (unknown) (unknown) Comment: wbat , php x 6 wks, abd pillow when in bed (units unknown) (unknown) (unknown) (no date) (unknown) (unknown) Comment: (units unknown) (unknown) (unknown) (no date) (unknown) (unknown) Mariaa Soares MD [Physician] - 2 Weeks (Follow up 2 weeks after surgery for (units unknown) (unknown) (unknown) (no date) (unknown) (unknown) Consult to Discharge Planning Routine (units unknown) (unknown) (unknown) (no date) (unknown) (unknown) Consult to Occupational Therapy Evaluate + Treat (units unknown) (unknown) (unknown) (no date) (unknown) (unknown) Consult to Physical Therapy Evaluate + Treat (units unknown) (unknown) (unknown) (no date) (unknown) (unknown) Consult to Physician Routine (units unknown) (unknown) (unknown) (no date) (unknown) (unknown) Consulting Provider: Mariaa Soares (units unknown) (unknown) (unknown) (no date) (unknown) (unknown) Consults: (units unknown) (unknown) (unknown) (no date) (unknown) (unknown) Creatinine 0.73 (units unknown) (unknown) (unknown) (no date) (unknown) (unknown) : 1945 Acct:[id number] (units unknown) (unknown) (unknown) (no date) (unknown) (unknown) Date of Service: 02/08/23 (units unknown) (unknown) (unknown) (no date) (unknown) (unknown) Date of admission: (units unknown) (unknown) (unknown) (no date) (unknown) (unknown) Date of procedure: 02/08/23 (units unknown) (unknown) (unknown) (no date) (unknown) (unknown) Deep Vein Thrombosis/Pulmonary Embolism Present on Admission: No (units unknown) (unknown) (unknown) (no date) (unknown) (unknown) Dementia (units unknown) (unknown) (unknown) (no date) (unknown) (unknown) Depression (units unknown) (unknown) (unknown) (no date) (unknown) (unknown) Diet/Activity/Treatm ents (units unknown) (unknown) (unknown) (no date) (unknown) (unknown) Discharge Assessment + Plan (units unknown) (unknown) (unknown) (no date) (unknown) (unknown) Discharge Date: 02/10/23 (units unknown) (unknown) (unknown) (no date) (unknown) (unknown) Discharge Diagnosis: (units unknown) (unknown) (unknown) (no date) (unknown) (unknown) Discharge Plan (units unknown) (unknown) (unknown) (no date) (unknown) (unknown) Discharge Providers (units unknown) (unknown) (unknown) (no date) (unknown) (unknown) Discharge Summary (units unknown) (unknown) (unknown) (no date) (unknown) (unknown) Discharge orders + Medications (units unknown) (unknown) (unknown) (no date) (unknown) (unknown) Discharge provider: (units unknown) (unknown) (unknown) (no date) (unknown) (unknown) Displaced femoral neck fracture severe hip arthritic changes (units unknown) (unknown) (unknown) (no date) (unknown) (unknown) Distal post centralizer 10 mm (units unknown) (unknown) (unknown) (no date) (unknown) (unknown) Dressing: May shower with Aquacel dressing but no soaking incision. Change as (units unknown) (unknown) (unknown) (no date) (unknown) (unknown) During the operation, the services of a physician surgical appliance fitter were (units unknown) (unknown) (unknown) (no date) (unknown) (unknown) Easy bruisability (units unknown) (unknown) (unknown) (no date) (unknown) (unknown) Eos # (Auto) 0 (units unknown) (unknown) (unknown) (no date) (unknown) (unknown) Eos % (Auto) 0.0 L (units unknown) (unknown) (unknown) (no date) (unknown) (unknown) Epilepsy (units unknown) (unknown) (unknown) (no date) (unknown) (unknown) Estimated Blood Loss (mL): 200 (units unknown) (unknown) (unknown) (no date) (unknown) (unknown) Estimated GFR > 60 (units unknown) (unknown) (unknown) (no date) (unknown) (unknown) Exam Narrative: (units unknown) (unknown) (unknown) (no date) (unknown) (unknown) Exam (units unknown) (unknown) (unknown) (no date) (unknown) (unknown) Findings: (units unknown) (unknown) (unknown) (no date) (unknown) (unknown) Follow up/Referrals: (units unknown) (unknown) (unknown) (no date) (unknown) (unknown) Follow-up in 2 weeks for staple removal. (units unknown) (unknown) (unknown) (no date) (unknown) (unknown) Fraction of Inspired Oxygen 24 (units unknown) (unknown) (unknown) (no date) (unknown) (unknown) Glucose 129 H (units unknown) (unknown) (unknown) (no date) (unknown) (unknown) Has provider been notified: Yes (units unknown) (unknown) (unknown) (no date) (unknown) (unknown) Hct 22.4 L (units unknown) (unknown) (unknown) (no date) (unknown) (unknown) Heart burn (units unknown) (unknown) (unknown) (no date) (unknown) (unknown) Hemiarthroplasty for left femoral neck fracture fixation with endoprosthesis.? (units unknown) (unknown) (unknown) (no date) (unknown) (unknown) Hgb 7.5 L (units unknown) (unknown) (unknown) (no date) (unknown) (unknown) His pain has been well controlled with medication. He will return to his (units unknown) (unknown) (unknown) (no date) (unknown) (unknown) History of Present Illness (units unknown) (unknown) (unknown) (no date) (unknown) (unknown) Hospital Course (units unknown) (unknown) (unknown) (no date) (unknown) (unknown) Hospital Course: (units unknown) (unknown) (unknown) (no date) (unknown) (unknown) Indications: (units unknown) (unknown) (unknown) (no date) (unknown) (unknown) [address] [address] (units unknown) (unknown) (unknown) (no date) (unknown) (unknown) Erendira Long PA-C (units unknown) (unknown) (unknown) (no date) (unknown) (unknown) Laboratory Results - last 24 hr (units unknown) (unknown) (unknown) (no date) (unknown) (unknown) Labs (units unknown) (unknown) (unknown) (no date) (unknown) (unknown) Labs: (units unknown) (unknown) (unknown) (no date) (unknown) (unknown) Left femoral neck fracture, S/p Left hip hemiarthroplasty (units unknown) (unknown) (unknown) (no date) (unknown) (unknown) Left hip arthritis (units unknown) (unknown) (unknown) (no date) (unknown) (unknown) Lymph # (Auto) 700 L (units unknown) (unknown) (unknown) (no date) (unknown) (unknown) Lymph % (Auto) 6.1 L D (units unknown) (unknown) (unknown) (no date) (unknown) (unknown) MCH 33.3 (units unknown) (unknown) (unknown) (no date) (unknown) (unknown) MCHC 33.6 (units unknown) (unknown) (unknown) (no date) (unknown) (unknown) MCV 99.1 (units unknown) (unknown) (unknown) (no date) (unknown) (unknown) Medical History (units unknown) (unknown) (unknown) (no date) (unknown) (unknown) [place] # (Auto) 600 (units unknown) (unknown) (unknown) (no date) (unknown) (unknown) [place] % (Auto) 5.5 (units unknown) (unknown) (unknown) (no date) (unknown) (unknown) Narrative (units unknown) (unknown) (unknown) (no date) (unknown) (unknown) Nasal Screen MRSA (PCR) Detected H (units unknown) (unknown) (unknown) (no date) (unknown) (unknown) Neck pain (units unknown) (unknown) (unknown) (no date) (unknown) (unknown) Neut # (Auto) 9400 H (units unknown) (unknown) (unknown) (no date) (unknown) (unknown) Neut % (Auto) 88.3 H D (units unknown) (unknown) (unknown) (no date) (unknown) (unknown) No Action (units unknown) (unknown) (unknown) (no date) (unknown) (unknown) No history of previous surgery (units unknown) (unknown) (unknown) (no date) (unknown) (unknown) Numbness and tingling (units unknown) (unknown) (unknown) (no date) (unknown) (unknown) Objective (units unknown) (unknown) (unknown) (no date) (unknown) (unknown) Operative Date/Time/Diagnoses (units unknown) (unknown) (unknown) (no date) (unknown) (unknown) Operative Notes (units unknown) (unknown) (unknown) (no date) (unknown) (unknown) Osteoarthritis (units unknown) (unknown) (unknown) (no date) (unknown) (unknown) Other treatments: Lovenox 40 mg subcutaneous for 4 weeks for DVT prophylaxis. (units unknown) (unknown) (unknown) (no date) (unknown) (unknown) Oxygen Delivery Method Nasal Cannula (units unknown) (unknown) (unknown) (no date) (unknown) (unknown) Oxygen Delivery Method (units unknown) (unknown) (unknown) (no date) (unknown) (unknown) Oxygen Flow Rate 1 1 1 (units unknown) (unknown) (unknown) (no date) (unknown) (unknown) Oxygen Flow Rate 2 (units unknown) (unknown) (unknown) (no date) (unknown) (unknown) Oxygen Flow Rate (units unknown) (unknown) (unknown) (no date) (unknown) (unknown) PFSH (units unknown) (unknown) (unknown) (no date) (unknown) (unknown) POA on the telephone and they were given the opportunity to ask questions.? The (units unknown) (unknown) (unknown) (no date) (unknown) (unknown) Pain (units unknown) (unknown) (unknown) (no date) (unknown) (unknown) Patient is a 77-year-old male with a history of seizures and dementia who lives (units unknown) (unknown) (unknown) (no date) (unknown) (unknown) Patient's postoperative course is complicated by Alzheimer's dementia and bed (units unknown) (unknown) (unknown) (no date) (unknown) (unknown) Patient: Donna Garcia MR#: [id number] (units unknown) (unknown) (unknown) (no date) (unknown) (unknown) Physician Instructions: Evaluate and Treat (units unknown) (unknown) (unknown) (no date) (unknown) (unknown) Physician Instructions: Evaluate and treat (units unknown) (unknown) (unknown) (no date) (unknown) (unknown) Plan of Treatment: (units unknown) (unknown) (unknown) (no date) (unknown) (unknown) Pleasant, demented 77-year-old male. Awake, alert, oriented to self. Able to (units unknown) (unknown) (unknown) (no date) (unknown) (unknown) Plt Count 157 (units unknown) (unknown) (unknown) (no date) (unknown) (unknown) Post-op diagnosis: same (units unknown) (unknown) (unknown) (no date) (unknown) (unknown) Potassium 4.1 (units unknown) (unknown) (unknown) (no date) (unknown) (unknown) Pre-op diagnosis: Left femoral neck fracture displaced (units unknown) (unknown) (unknown) (no date) (unknown) (unknown) Prescriptions: (units unknown) (unknown) (unknown) (no date) (unknown) (unknown) Procedure + Clinicians (units unknown) (unknown) (unknown) (no date) (unknown) (unknown) Procedure: (units unknown) (unknown) (unknown) (no date) (unknown) (unknown) Prosthetic devices, grafts, tissues, transplants, or devices: (units unknown) (unknown) (unknown) (no date) (unknown) (unknown) Provider (units unknown) (unknown) (unknown) (no date) (unknown) (unknown) Provider: Erendira Long P.A-C (units unknown) (unknown) (unknown) (no date) (unknown) (unknown) Pulse Oximetry 90 L 93 (units unknown) (unknown) (unknown) (no date) (unknown) (unknown) Pulse Oximetry 92 93 (units unknown) (unknown) (unknown) (no date) (unknown) (unknown) Pulse Oximetry 92 (units unknown) (unknown) (unknown) (no date) (unknown) (unknown) Pulse Oximetry 93 96 (units unknown) (unknown) (unknown) (no date) (unknown) (unknown) Pulse Oximetry 94 (units unknown) (unknown) (unknown) (no date) (unknown) (unknown) Pulse Oximetry 96 92 (units unknown) (unknown) (unknown) (no date) (unknown) (unknown) Pulse Oximetry 97 96 99 (units unknown) (unknown) (unknown) (no date) (unknown) (unknown) Pulse Oximetry (units unknown) (unknown) (unknown) (no date) (unknown) (unknown) Pulse Rate 73 (units unknown) (unknown) (unknown) (no date) (unknown) (unknown) Pulse Rate 90 90 (units unknown) (unknown) (unknown) (no date) (unknown) (unknown) Pulse Rate 93 H 92 H (units unknown) (unknown) (unknown) (no date) (unknown) (unknown) Pulse Rate 93 H 93 H (units unknown) (unknown) (unknown) (no date) (unknown) (unknown) Pulse Rate 96 H 97 H (units unknown) (unknown) (unknown) (no date) (unknown) (unknown) Pulse Rate 97 H 97 H 98 H (units unknown) (unknown) (unknown) (no date) (unknown) (unknown) Pulse Rate 99 H 96 H (units unknown) (unknown) (unknown) (no date) (unknown) (unknown) Pulse Rate 99 H (units unknown) (unknown) (unknown) (no date) (unknown) (unknown) Quality (units unknown) (unknown) (unknown) (no date) (unknown) (unknown) RBBB (right bundle branch block) (units unknown) (unknown) (unknown) (no date) (unknown) (unknown) RBC 2.26 L (units unknown) (unknown) (unknown) (no date) (unknown) (unknown) RDW 16.1 H (units unknown) (unknown) (unknown) (no date) (unknown) (unknown) Reason for consultation: Left femoral neck fracture (units unknown) (unknown) (unknown) (no date) (unknown) (unknown) Report to your healthcare provider any signs of infection, such as:: chills, (units unknown) (unknown) (unknown) (no date) (unknown) (unknown) Respiratory Rate 15 17 (units unknown) (unknown) (unknown) (no date) (unknown) (unknown) Respiratory Rate 16 (units unknown) (unknown) (unknown) (no date) (unknown) (unknown) Respiratory Rate 17 22 (units unknown) (unknown) (unknown) (no date) (unknown) (unknown) Respiratory Rate 18 18 (units unknown) (unknown) (unknown) (no date) (unknown) (unknown) Respiratory Rate 21 22 31 H (units unknown) (unknown) (unknown) (no date) (unknown) (unknown) Respiratory Rate 22 19 (units unknown) (unknown) (unknown) (no date) (unknown) (unknown) Respiratory Rate 25 H (units unknown) (unknown) (unknown) (no date) (unknown) (unknown) Respiratory Rate 26 H 17 (units unknown) (unknown) (unknown) (no date) (unknown) (unknown) Respiratory Rate 27 H (units unknown) (unknown) (unknown) (no date) (unknown) (unknown) Rx Instructions: (units unknown) (unknown) (unknown) (no date) (unknown) (unknown) SaO2/FiO2 Ratio 400 (units unknown) (unknown) (unknown) (no date) (unknown) (unknown) Same procedure as scheduled: Yes (units unknown) (unknown) (unknown) (no date) (unknown) (unknown) Seizures (units unknown) (unknown) (unknown) (no date) (unknown) (unknown) Signed By: (units unknown) (unknown) (unknown) (no date) (unknown) (unknown) Since patient is bed-bound at baseline, he has not worked with physical therapy. (units unknown) (unknown) (unknown) (no date) (unknown) (unknown) Skin/Wound/Dressing Care (units unknown) (unknown) (unknown) (no date) (unknown) (unknown) Contreras and [place] Synergy unipolar femoral component cobalt chromium size 12 (units unknown) (unknown) (unknown) (no date) (unknown) (unknown) Contreras and Nephew tandem unipolar +4 taper sleeve and tandem unipolar cobalt (units unknown) (unknown) (unknown) (no date) (unknown) (unknown) Smoking Status: Smoker, status unknown (units unknown) (unknown) (unknown) (no date) (unknown) (unknown) Social History (units unknown) (unknown) (unknown) (no date) (unknown) (unknown) Sodium 137 (units unknown) (unknown) (unknown) (no date) (unknown) (unknown) Specimen(s): none sent (units unknown) (unknown) (unknown) (no date) (unknown) (unknown) Stand Alone Forms: Patient Portal/API, Surgery Discharge (units unknown) (unknown) (unknown) (no date) (unknown) (unknown) Strength and sensation intact to right lower extremity. Strength 0/5 to left (units unknown) (unknown) (unknown) (no date) (unknown) (unknown) Summary (units unknown) (unknown) (unknown) (no date) (unknown) (unknown) Surgeon: Mariaa Soares (units unknown) (unknown) (unknown) (no date) (unknown) (unknown) Surgical History (units unknown) (unknown) (unknown) (no date) (unknown) (unknown) TIA (transient ischemic attack) (units unknown) (unknown) (unknown) (no date) (unknown) (unknown) Temperature 97.4 F L (units unknown) (unknown) (unknown) (no date) (unknown) (unknown) Temperature 99.2 F (units unknown) (unknown) (unknown) (no date) (unknown) (unknown) Temperature (units unknown) (unknown) (unknown) (no date) (unknown) (unknown) Time of procedure: 18:30 (units unknown) (unknown) (unknown) (no date) (unknown) (unknown) Tourniquet time (min): 0 (units unknown) (unknown) (unknown) (no date) (unknown) (unknown) VTE (units unknown) (unknown) (unknown) (no date) (unknown) (unknown) Visit Report/Discharge Packet (units unknown) (unknown) (unknown) (no date) (unknown) (unknown) Vital Signs (units unknown) (unknown) (unknown) (no date) (unknown) (unknown) WBC 10.7 D (units unknown) (unknown) (unknown) (no date) (unknown) (unknown) [Embedded Image Not Available] (units unknown) (unknown) (unknown) (no date) (unknown) (unknown) acetaminophen 500 mg Tablet (units unknown) (unknown) (unknown) (no date) (unknown) (unknown) additional information.? After the patient's fall he was unable to weightbear he (units unknown) (unknown) (unknown) (no date) (unknown) (unknown) adult family tomorrow, ambulance transfer scheduled for tomorrow at noon. He (units unknown) (unknown) (unknown) (no date) (unknown) (unknown) alcohol intake: current (units unknown) (unknown) (unknown) (no date) (unknown) (unknown) ambulator with a walker and is limited by his dementia and history of seizures (units unknown) (unknown) (unknown) (no date) (unknown) (unknown) and severe hip arthritis.? He was indicated for hemiarthroplasty to treat his (units unknown) (unknown) (unknown) (no date) (unknown) (unknown) answer simple questions. Left hip intraoperative dressing clean, dry, intact. (units unknown) (unknown) (unknown) (no date) (unknown) (unknown) apply to single knee, ankle, foot; for foot includes sole/toes/top of foot (units unknown) (unknown) (unknown) (no date) (unknown) (unknown) aspirin 81 mg Tablet,Delayed Release (Dr/Ec) (units unknown) (unknown) (unknown) (no date) (unknown) (unknown) atorvastatin 20 mg Tablet (units unknown) (unknown) (unknown) (no date) (unknown) (unknown) being present this would extended the operative procedure and made the procedure (units unknown) (unknown) (unknown) (no date) (unknown) (unknown) bound status at baseline. His pain has been well controlled. (units unknown) (unknown) (unknown) (no date) (unknown) (unknown) cardiopulmonary complications and .? The power of state's attorney expressed a (units unknown) (unknown) (unknown) (no date) (unknown) (unknown) carry out the operation safely and efficiently.? 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 The risks and benefits (units unknown) (unknown) (unknown) (no date) (unknown) (unknown) dorsiflexion, 4/5 to plantar flexion. (units unknown) (unknown) (unknown) (no date) (unknown) (unknown) ferrous sulfate 325 mg (65 mg iron) Tablet,Delayed Release (Dr/Ec) (units unknown) (unknown) (unknown) (no date) (unknown) (unknown) fever, night sweats, unusual drainage and unusual redness (units unknown) (unknown) (unknown) (no date) (unknown) (unknown) for the surgical procedure and to maintain the limb in a proper position to (units unknown) (unknown) (unknown) (no date) (unknown) (unknown) fracture.? He has underlying severe bilateral hip arthritis.? He was an (units unknown) (unknown) (unknown) (no date) (unknown) (unknown) gabapentin 300 mg Capsule (units unknown) (unknown) (unknown) (no date) (unknown) (unknown) household members: family (units unknown) (unknown) (unknown) (no date) (unknown) (unknown) in a snf that had a fall.? He is only able to give us very limited (units unknown) (unknown) (unknown) (no date) (unknown) (unknown) information but his sister is power of state's attorney and was able to provide (units unknown) (unknown) (unknown) (no date) (unknown) (unknown) levetiracetam 750 mg Tablet (units unknown) (unknown) (unknown) (no date) (unknown) (unknown) medically indicated and necessary to provide the exposure of the operative site (units unknown) (unknown) (unknown) (no date) (unknown) (unknown) melatonin 3 mg Tablet (units unknown) (unknown) (unknown) (no date) (unknown) (unknown) metoprolol tartrate 25 mg Tablet (units unknown) (unknown) (unknown) (no date) (unknown) (unknown) needed. (units unknown) (unknown) (unknown) (no date) (unknown) (unknown) of the procedure have been discussed with the patient and separately with the (units unknown) (unknown) (unknown) (no date) (unknown) (unknown) omeprazole 20 mg Capsule,Delayed Release(Dr/Ec) (units unknown) (unknown) (unknown) (no date) (unknown) (unknown) polyethylene glycol 3350 [Miralax] 17 gram Powder In Packet (units unknown) (unknown) (unknown) (no date) (unknown) (unknown) prazosin 1 mg Capsule (units unknown) (unknown) (unknown) (no date) (unknown) (unknown) proceed.? Telephone Consent was signed and witnessed (units unknown) (unknown) (unknown) (no date) (unknown) (unknown) risks of surgery include but are not limited to infection, fracture, (units unknown) (unknown) (unknown) (no date) (unknown) (unknown) sennosides [senna] 8.6 mg Tablet (units unknown) (unknown) (unknown) (no date) (unknown) (unknown) sertraline 100 mg Tablet (units unknown) (unknown) (unknown) (no date) (unknown) (unknown) small bone plug restrictor (units unknown) (unknown) (unknown) (no date) (unknown) (unknown) staple removal.) (units unknown) (unknown) (unknown) (no date) (unknown) (unknown) technically more difficult to perform. (units unknown) (unknown) (unknown) (no date) (unknown) (unknown) thorough understanding of the risks and benefits of surgery and has elected to (units unknown) (unknown) (unknown) (no date) (unknown) (unknown) was brought to [facility] and found to have a displaced left femoral neck (units unknown) (unknown) (unknown) (no date) (unknown) (unknown) while in bed. Posterior hip precautions for 6 weeks. (units unknown) (unknown) (unknown) (no date) (unknown) (unknown) will follow up with Orthopedics 2 weeks after surgery for staple removal. (units unknown) (unknown) Result panel 146 (unknown) (no date) (unknown) (unknown) (no value) (units unknown) (unknown) (unknown) (no date) (unknown) (unknown) (past 8 hours): (units unknown) (unknown) (unknown) (no date) (unknown) (unknown) [id number] (units unknown) (unknown) (unknown) (no date) (unknown) (unknown) 02/09/23 02/09/23 02/09/23 (units unknown) (unknown) (unknown) (no date) (unknown) (unknown) 02/09/23 08:00 (units unknown) (unknown) (unknown) (no date) (unknown) (unknown) 02/09/23 1428 (units unknown) (unknown) (unknown) (no date) (unknown) (unknown) 02/09/23 (units unknown) (unknown) (unknown) (no date) (unknown) (unknown) 06:15 08:00 08:00 (units unknown) (unknown) (unknown) (no date) (unknown) (unknown) 06:30 02/09/23 (units unknown) (unknown) (unknown) (no date) (unknown) (unknown) 06:45 02/09/23 (units unknown) (unknown) (unknown) (no date) (unknown) (unknown) 06:45 (units unknown) (unknown) (unknown) (no date) (unknown) (unknown) 07:00 02/09/23 (units unknown) (unknown) (unknown) (no date) (unknown) (unknown) 07:00 (units unknown) (unknown) (unknown) (no date) (unknown) (unknown) 07:16 02/09/23 (units unknown) (unknown) (unknown) (no date) (unknown) (unknown) 07:30 02/09/23 (units unknown) (unknown) (unknown) (no date) (unknown) (unknown) 07:30 (units unknown) (unknown) (unknown) (no date) (unknown) (unknown) 07:45 02/09/23 (units unknown) (unknown) (unknown) (no date) (unknown) (unknown) 07:45 (units unknown) (unknown) (unknown) (no date) (unknown) (unknown) 08:00 02/09/23 (units unknown) (unknown) (unknown) (no date) (unknown) (unknown) 08:01 02/09/23 (units unknown) (unknown) (unknown) (no date) (unknown) (unknown) 08:01 (units unknown) (unknown) (unknown) (no date) (unknown) (unknown) 08:30 02/09/23 (units unknown) (unknown) (unknown) (no date) (unknown) (unknown) 09:12 (units unknown) (unknown) (unknown) (no date) (unknown) (unknown) 09:30 02/09/23 (units unknown) (unknown) (unknown) (no date) (unknown) (unknown) 10:00 02/09/23 (units unknown) (unknown) (unknown) (no date) (unknown) (unknown) 10:07 02/09/23 (units unknown) (unknown) (unknown) (no date) (unknown) (unknown) 10:07 (units unknown) (unknown) (unknown) (no date) (unknown) (unknown) 12:00 (units unknown) (unknown) (unknown) (no date) (unknown) (unknown) Actual Procedure Side Surgeon (units unknown) (unknown) (unknown) (no date) (unknown) (unknown) Age/Sex: 77 / M (units unknown) (unknown) (unknown) (no date) (unknown) (unknown) Alzheimer's dementia and bed-bound status at baseline. His pain has been well (units unknown) (unknown) (unknown) (no date) (unknown) (unknown) Alzheimer's dementia (units unknown) (unknown) (unknown) (no date) (unknown) (unknown) Anxiety (units unknown) (unknown) (unknown) (no date) (unknown) (unknown) Assessment + Plan Post-op (units unknown) (unknown) (unknown) (no date) (unknown) (unknown) BUN 18 (units unknown) (unknown) (unknown) (no date) (unknown) (unknown) BUN/Creatinine Ratio 24.7 H (units unknown) (unknown) (unknown) (no date) (unknown) (unknown) Baso # (Auto) 0 (units unknown) (unknown) (unknown) (no date) (unknown) (unknown) Baso % (Auto) 0.1 (units unknown) (unknown) (unknown) (no date) (unknown) (unknown) Blood Pressure 83/53 L 90/51 L (units unknown) (unknown) (unknown) (no date) (unknown) (unknown) Blood Pressure 89/53 L (units unknown) (unknown) (unknown) (no date) (unknown) (unknown) Blood Pressure 93/51 L (units unknown) (unknown) (unknown) (no date) (unknown) (unknown) Blood Pressure 97/55 L 97/54 L (units unknown) (unknown) (unknown) (no date) (unknown) (unknown) Blood Pressure 98/53 L (units unknown) (unknown) (unknown) (no date) (unknown) (unknown) Blood Pressure 99/56 L 95/64 (units unknown) (unknown) (unknown) (no date) (unknown) (unknown) Blood Pressure (units unknown) (unknown) (unknown) (no date) (unknown) (unknown) Calcium 7.6 L (units unknown) (unknown) (unknown) (no date) (unknown) (unknown) Carbon Dioxide 24 (units unknown) (unknown) (unknown) (no date) (unknown) (unknown) Chest pain (units unknown) (unknown) (unknown) (no date) (unknown) (unknown) Chloride 107 (units unknown) (unknown) (unknown) (no date) (unknown) (unknown) Creatinine 0.73 (units unknown) (unknown) (unknown) (no date) (unknown) (unknown) : 1945 Acct:[id number] (units unknown) (unknown) (unknown) (no date) (unknown) (unknown) Date Patient Seen: 02/09/23 (units unknown) (unknown) (unknown) (no date) (unknown) (unknown) Date of Service: 02/08/23 (units unknown) (unknown) (unknown) (no date) (unknown) (unknown) Deep Vein Thrombosis/Pulmonary Embolism Present on Admission: No (units unknown) (unknown) (unknown) (no date) (unknown) (unknown) Depression (units unknown) (unknown) (unknown) (no date) (unknown) (unknown) Easy bruisability (units unknown) (unknown) (unknown) (no date) (unknown) (unknown) Eos # (Auto) 0 (units unknown) (unknown) (unknown) (no date) (unknown) (unknown) Eos % (Auto) 0.0 L (units unknown) (unknown) (unknown) (no date) (unknown) (unknown) Epilepsy (units unknown) (unknown) (unknown) (no date) (unknown) (unknown) Estimated GFR > 60 (units unknown) (unknown) (unknown) (no date) (unknown) (unknown) Exam Narrative: (units unknown) (unknown) (unknown) (no date) (unknown) (unknown) Exam (units unknown) (unknown) (unknown) (no date) (unknown) (unknown) Fraction of Inspired Oxygen 24 (units unknown) (unknown) (unknown) (no date) (unknown) (unknown) Glucose 129 H (units unknown) (unknown) (unknown) (no date) (unknown) (unknown) Hct 22.4 L (units unknown) (unknown) (unknown) (no date) (unknown) (unknown) Heart burn (units unknown) (unknown) (unknown) (no date) (unknown) (unknown) Hgb 7.5 L (units unknown) (unknown) (unknown) (no date) (unknown) (unknown) Interval history: (units unknown) (unknown) (unknown) (no date) (unknown) (unknown) [address] [id number] (units unknown) (unknown) (unknown) (no date) (unknown) (unknown) Laboratory Results - last 24 hr (units unknown) (unknown) (unknown) (no date) (unknown) (unknown) Labs (units unknown) (unknown) (unknown) (no date) (unknown) (unknown) Labs: (units unknown) (unknown) (unknown) (no date) (unknown) (unknown) Lymph # (Auto) 700 L (units unknown) (unknown) (unknown) (no date) (unknown) (unknown) Lymph % (Auto) 6.1 L D (units unknown) (unknown) (unknown) (no date) (unknown) (unknown) MCH 33.3 (units unknown) (unknown) (unknown) (no date) (unknown) (unknown) MCHC 33.6 (units unknown) (unknown) (unknown) (no date) (unknown) (unknown) MCV 99.1 (units unknown) (unknown) (unknown) (no date) (unknown) (unknown) Medical History (units unknown) (unknown) (unknown) (no date) (unknown) (unknown) Aurora # (Auto) 600 (units unknown) (unknown) (unknown) (no date) (unknown) (unknown) [place] % (Auto) 5.5 (units unknown) (unknown) (unknown) (no date) (unknown) (unknown) Narrative (units unknown) (unknown) (unknown) (no date) (unknown) (unknown) Nasal Screen MRSA (PCR) Detected H (units unknown) (unknown) (unknown) (no date) (unknown) (unknown) Neck pain (units unknown) (unknown) (unknown) (no date) (unknown) (unknown) Neut # (Auto) 9400 H (units unknown) (unknown) (unknown) (no date) (unknown) (unknown) Neut % (Auto) 88.3 H D (units unknown) (unknown) (unknown) (no date) (unknown) (unknown) No history of previous surgery (units unknown) (unknown) (unknown) (no date) (unknown) (unknown) Numbness and tingling (units unknown) (unknown) (unknown) (no date) (unknown) (unknown) Objective (units unknown) (unknown) (unknown) (no date) (unknown) (unknown) Operation Date: 02/08/23 14:00 (units unknown) (unknown) (unknown) (no date) (unknown) (unknown) Osteoarthritis (units unknown) (unknown) (unknown) (no date) (unknown) (unknown) Oxygen Delivery Method Nasal Cannula (units unknown) (unknown) (unknown) (no date) (unknown) (unknown) Oxygen Delivery Method (units unknown) (unknown) (unknown) (no date) (unknown) (unknown) Oxygen Flow Rate 2 (units unknown) (unknown) (unknown) (no date) (unknown) (unknown) Oxygen Flow Rate (units unknown) (unknown) (unknown) (no date) (unknown) (unknown) PFSH (units unknown) (unknown) (unknown) (no date) (unknown) (unknown) Pain (units unknown) (unknown) (unknown) (no date) (unknown) (unknown) Patient is lying comfortably in bed this afternoon. He complains of mild pain (units unknown) (unknown) (unknown) (no date) (unknown) (unknown) Patient: Donna Garcia MR#: [id number] (units unknown) (unknown) (unknown) (no date) (unknown) (unknown) Pleasant, demented 77-year-old male. Awake, alert, oriented to self. Able to (units unknown) (unknown) (unknown) (no date) (unknown) (unknown) Plt Count 157 (units unknown) (unknown) (unknown) (no date) (unknown) (unknown) Postoperative day: 1 (units unknown) (unknown) (unknown) (no date) (unknown) (unknown) Postoperative plan narrative: Since patient is bed-bound at baseline, he has not (units unknown) (unknown) (unknown) (no date) (unknown) (unknown) Postoperative plan: routine post-op care (units unknown) (unknown) (unknown) (no date) (unknown) (unknown) Postoperative status narrative: Patient's postoperative course is complicated by (units unknown) (unknown) (unknown) (no date) (unknown) (unknown) Postoperative status: doing well (units unknown) (unknown) (unknown) (no date) (unknown) (unknown) Postoperative (units unknown) (unknown) (unknown) (no date) (unknown) (unknown) Potassium 4.1 (units unknown) (unknown) (unknown) (no date) (unknown) (unknown) Procedures (units unknown) (unknown) (unknown) (no date) (unknown) (unknown) Procedures: (units unknown) (unknown) (unknown) (no date) (unknown) (unknown) Progress Note (units unknown) (unknown) (unknown) (no date) (unknown) (unknown) Provider: Erendira Long P.A-C (units unknown) (unknown) (unknown) (no date) (unknown) (unknown) Pulse Oximetry 90 L 93 (units unknown) (unknown) (unknown) (no date) (unknown) (unknown) Pulse Oximetry 92 93 (units unknown) (unknown) (unknown) (no date) (unknown) (unknown) Pulse Oximetry 92 (units unknown) (unknown) (unknown) (no date) (unknown) (unknown) Pulse Oximetry 94 (units unknown) (unknown) (unknown) (no date) (unknown) (unknown) Pulse Oximetry 96 92 (units unknown) (unknown) (unknown) (no date) (unknown) (unknown) Pulse Oximetry 97 96 99 (units unknown) (unknown) (unknown) (no date) (unknown) (unknown) Pulse Oximetry (units unknown) (unknown) (unknown) (no date) (unknown) (unknown) Pulse Rate 73 (units unknown) (unknown) (unknown) (no date) (unknown) (unknown) Pulse Rate 90 90 (units unknown) (unknown) (unknown) (no date) (unknown) (unknown) Pulse Rate 93 H 92 H (units unknown) (unknown) (unknown) (no date) (unknown) (unknown) Pulse Rate 96 H 97 H (units unknown) (unknown) (unknown) (no date) (unknown) (unknown) Pulse Rate 97 H 97 H 98 H (units unknown) (unknown) (unknown) (no date) (unknown) (unknown) Pulse Rate 99 H 96 H (units unknown) (unknown) (unknown) (no date) (unknown) (unknown) Pulse Rate 99 H (units unknown) (unknown) (unknown) (no date) (unknown) (unknown) Quality (units unknown) (unknown) (unknown) (no date) (unknown) (unknown) RBBB (right bundle branch block) (units unknown) (unknown) (unknown) (no date) (unknown) (unknown) RBC 2.26 L (units unknown) (unknown) (unknown) (no date) (unknown) (unknown) RDW 16.1 H (units unknown) (unknown) (unknown) (no date) (unknown) (unknown) Respiratory Rate 15 17 (units unknown) (unknown) (unknown) (no date) (unknown) (unknown) Respiratory Rate 16 (units unknown) (unknown) (unknown) (no date) (unknown) (unknown) Respiratory Rate 18 18 (units unknown) (unknown) (unknown) (no date) (unknown) (unknown) Respiratory Rate 21 22 31 H (units unknown) (unknown) (unknown) (no date) (unknown) (unknown) Respiratory Rate 22 19 (units unknown) (unknown) (unknown) (no date) (unknown) (unknown) Respiratory Rate 25 H (units unknown) (unknown) (unknown) (no date) (unknown) (unknown) Respiratory Rate 26 H 17 (units unknown) (unknown) (unknown) (no date) (unknown) (unknown) Respiratory Rate 27 H (units unknown) (unknown) (unknown) (no date) (unknown) (unknown) SaO2/FiO2 Ratio 400 (units unknown) (unknown) (unknown) (no date) (unknown) (unknown) Seizures (units unknown) (unknown) (unknown) (no date) (unknown) (unknown) Signed By:<Electronically signed by Erendira Long> (units unknown) (unknown) (unknown) (no date) (unknown) (unknown) Smoking Status: Smoker, status unknown (units unknown) (unknown) (unknown) (no date) (unknown) (unknown) Social History (units unknown) (unknown) (unknown) (no date) (unknown) (unknown) Sodium 137 (units unknown) (unknown) (unknown) (no date) (unknown) (unknown) Strength and sensation intact to right lower extremity. Strength 0/5 to left (units unknown) (unknown) (unknown) (no date) (unknown) (unknown) Subjective (units unknown) (unknown) (unknown) (no date) (unknown) (unknown) Surgical History (units unknown) (unknown) (unknown) (no date) (unknown) (unknown) TIA (transient ischemic attack) (units unknown) (unknown) (unknown) (no date) (unknown) (unknown) Temperature 97.4 F L (units unknown) (unknown) (unknown) (no date) (unknown) (unknown) Temperature 99.2 F (units unknown) (unknown) (unknown) (no date) (unknown) (unknown) Temperature (units unknown) (unknown) (unknown) (no date) (unknown) (unknown) Time Patient Seen: 14:00 (units unknown) (unknown) (unknown) (no date) (unknown) (unknown) VTE (units unknown) (unknown) (unknown) (no date) (unknown) (unknown) Vital Signs (units unknown) (unknown) (unknown) (no date) (unknown) (unknown) WBC 10.7 D (units unknown) (unknown) (unknown) (no date) (unknown) (unknown) [Embedded Image Not Available] (units unknown) (unknown) (unknown) (no date) (unknown) (unknown) after surgery for staple removal. (units unknown) (unknown) (unknown) (no date) (unknown) (unknown) alcohol intake: current (units unknown) (unknown) (unknown) (no date) (unknown) (unknown) answer simple questions. Left hip intraoperative dressing clean, dry, intact. (units unknown) (unknown) (unknown) (no date) (unknown) (unknown) date. However, he does not know where he is. Denies numbness and (units unknown) (unknown) (unknown) (no date) (unknown) (unknown) controlled. (units unknown) (unknown) (unknown) (no date) (unknown) (unknown) dorsiflexion, 4/5 to plantar flexion. Flexion contractures to bilateral hands. (units unknown) (unknown) (unknown) (no date) (unknown) (unknown) household members: family (units unknown) (unknown) (unknown) (no date) (unknown) (unknown) medication. He will return to his adult family tomorrow, ambulance transfer (units unknown) (unknown) (unknown) (no date) (unknown) (unknown) p Hip Hemiarthroplasty Amari Mariaa Soares MD (units unknown) (unknown) (unknown) (no date) (unknown) (unknown) scheduled for tomorrow at noon. He will follow up with Orthopedics 2 weeks (units unknown) (unknown) (unknown) (no date) (unknown) (unknown) tingling to the left lower extremity. Denies chest pain, shortness of breath. (units unknown) (unknown) (unknown) (no date) (unknown) (unknown) to the left hip and states that he broke it. He is able to tell me his name and (units unknown) (unknown) (unknown) (no date) (unknown) (unknown) worked with physical therapy. His pain has been well controlled with (units unknown) (unknown) Result panel 147 (unknown) (no date) (unknown) (unknown) (no value) (units unknown) (unknown) (unknown) (no date) (unknown) (unknown) (past 8 hours): (units unknown) (unknown) (unknown) (no date) (unknown) (unknown) * Continue Keppra (units unknown) (unknown) (unknown) (no date) (unknown) (unknown) * Continue gabapentin (units unknown) (unknown) (unknown) (no date) (unknown) (unknown) * Continue lipitor. (units unknown) (unknown) (unknown) (no date) (unknown) (unknown) * Continue sertraline, prazosin (units unknown) (unknown) (unknown) (no date) (unknown) (unknown) * Fall precautions (units unknown) (unknown) (unknown) (no date) (unknown) (unknown) * H+H (units unknown) (unknown) (unknown) (no date) (unknown) (unknown) * Hold ferrous sulfate till after surgery (units unknown) (unknown) (unknown) (no date) (unknown) (unknown) * Hold metoprolol as BP is soft at this time 107/56 (units unknown) (unknown) (unknown) (no date) (unknown) (unknown) * Hold omeprazole till after surgery (units unknown) (unknown) (unknown) (no date) (unknown) (unknown) * Limit patient's stimulation + agitation as much as possible (units unknown) (unknown) (unknown) (no date) (unknown) (unknown) * Seizure precautions (units unknown) (unknown) (unknown) (no date) (unknown) (unknown) * likely discharge back to snf tomorrow with continued outpatient follow (units unknown) (unknown) (unknown) (no date) (unknown) (unknown) * mildly hypotensive overnight after surgery, continue to monitor BP today (units unknown) (unknown) (unknown) (no date) (unknown) (unknown) * patient bedbound at baseline (units unknown) (unknown) (unknown) (no date) (unknown) (unknown) * s/p repair with orthopedic surgery (units unknown) (unknown) (unknown) (no date) (unknown) (unknown) [id number] (units unknown) (unknown) (unknown) (no date) (unknown) (unknown) 02/09/23 02/09/23 02/09/23 (units unknown) (unknown) (unknown) (no date) (unknown) (unknown) 02/09/23 08:00 (units unknown) (unknown) (unknown) (no date) (unknown) (unknown) 02/09/23 1453 (units unknown) (unknown) (unknown) (no date) (unknown) (unknown) 02/09/23 (units unknown) (unknown) (unknown) (no date) (unknown) (unknown) 06:15 08:00 08:00 (units unknown) (unknown) (unknown) (no date) (unknown) (unknown) 07:00 02/09/23 (units unknown) (unknown) (unknown) (no date) (unknown) (unknown) 07:00 (units unknown) (unknown) (unknown) (no date) (unknown) (unknown) 07:16 02/09/23 (units unknown) (unknown) (unknown) (no date) (unknown) (unknown) 07:16 (units unknown) (unknown) (unknown) (no date) (unknown) (unknown) 07:30 02/09/23 (units unknown) (unknown) (unknown) (no date) (unknown) (unknown) 07:30 (units unknown) (unknown) (unknown) (no date) (unknown) (unknown) 07:45 02/09/23 (units unknown) (unknown) (unknown) (no date) (unknown) (unknown) 08:00 (units unknown) (unknown) (unknown) (no date) (unknown) (unknown) 08:01 02/09/23 (units unknown) (unknown) (unknown) (no date) (unknown) (unknown) 08:30 02/09/23 (units unknown) (unknown) (unknown) (no date) (unknown) (unknown) 09:12 02/09/23 (units unknown) (unknown) (unknown) (no date) (unknown) (unknown) 09:30 (units unknown) (unknown) (unknown) (no date) (unknown) (unknown) 10:00 02/09/23 (units unknown) (unknown) (unknown) (no date) (unknown) (unknown) 10:07 02/09/23 (units unknown) (unknown) (unknown) (no date) (unknown) (unknown) 10:07 (units unknown) (unknown) (unknown) (no date) (unknown) (unknown) 12:00 (units unknown) (unknown) (unknown) (no date) (unknown) (unknown) 77 M admitted from a snf setting after a fall with a hip fracture. Now (units unknown) (unknown) (unknown) (no date) (unknown) (unknown) Abdomen: S NT ND (units unknown) (unknown) (unknown) (no date) (unknown) (unknown) Age/Sex: 77 / M (units unknown) (unknown) (unknown) (no date) (unknown) (unknown) Alzheimer's dementia (units unknown) (unknown) (unknown) (no date) (unknown) (unknown) Alzheimer's dementia, chronic, present on admission (units unknown) (unknown) (unknown) (no date) (unknown) (unknown) Anxiety (units unknown) (unknown) (unknown) (no date) (unknown) (unknown) Assessment + Plan narrative: (units unknown) (unknown) (unknown) (no date) (unknown) (unknown) Assessment + Plan (units unknown) (unknown) (unknown) (no date) (unknown) (unknown) BUN 18 (units unknown) (unknown) (unknown) (no date) (unknown) (unknown) BUN/Creatinine Ratio 24.7 H (units unknown) (unknown) (unknown) (no date) (unknown) (unknown) Baso # (Auto) 0 (units unknown) (unknown) (unknown) (no date) (unknown) (unknown) Baso % (Auto) 0.1 (units unknown) (unknown) (unknown) (no date) (unknown) (unknown) Blood Pressure 89/53 L (units unknown) (unknown) (unknown) (no date) (unknown) (unknown) Blood Pressure 90/51 L (units unknown) (unknown) (unknown) (no date) (unknown) (unknown) Blood Pressure 95/64 83/53 L (units unknown) (unknown) (unknown) (no date) (unknown) (unknown) Blood Pressure 97/54 L (units unknown) (unknown) (unknown) (no date) (unknown) (unknown) Blood Pressure 97/55 L (units unknown) (unknown) (unknown) (no date) (unknown) (unknown) Blood Pressure 98/53 L (units unknown) (unknown) (unknown) (no date) (unknown) (unknown) Blood Pressure (units unknown) (unknown) (unknown) (no date) (unknown) (unknown) Calcium 7.6 L (units unknown) (unknown) (unknown) (no date) (unknown) (unknown) Carbon Dioxide 24 (units unknown) (unknown) (unknown) (no date) (unknown) (unknown) Cardio: regular rate and rhythm without murmur, rubs, or gallops, no carotid (units unknown) (unknown) (unknown) (no date) (unknown) (unknown) Chest pain (units unknown) (unknown) (unknown) (no date) (unknown) (unknown) Chest: Normal AP diameter and contour without kyphoscoliosis, Equal chest rise (units unknown) (unknown) (unknown) (no date) (unknown) (unknown) Chloride 107 (units unknown) (unknown) (unknown) (no date) (unknown) (unknown) Code status:Full- unable to verify at this time, nursing will contact facility (units unknown) (unknown) (unknown) (no date) (unknown) (unknown) Creatinine 0.73 (units unknown) (unknown) (unknown) (no date) (unknown) (unknown) : 1945 Acct:[id number] (units unknown) (unknown) (unknown) (no date) (unknown) (unknown) DVT/VTE prophylaxis: Holding medication due to surgery, right SCD only (units unknown) (unknown) (unknown) (no date) (unknown) (unknown) Date of Service: 02/08/23 (units unknown) (unknown) (unknown) (no date) (unknown) (unknown) Deep Vein Thrombosis/Pulmonary Embolism Present on Admission: No (units unknown) (unknown) (unknown) (no date) (unknown) (unknown) Depression (units unknown) (unknown) (unknown) (no date) (unknown) (unknown) Disposition: Patient admitted to acute care for left femur fracture repair, (units unknown) (unknown) (unknown) (no date) (unknown) (unknown) Easy bruisability (units unknown) (unknown) (unknown) (no date) (unknown) (unknown) Eos # (Auto) 0 (units unknown) (unknown) (unknown) (no date) (unknown) (unknown) Eos % (Auto) 0.0 L (units unknown) (unknown) (unknown) (no date) (unknown) (unknown) Epilepsy (units unknown) (unknown) (unknown) (no date) (unknown) (unknown) Estimated GFR > 60 (units unknown) (unknown) (unknown) (no date) (unknown) (unknown) Exam Narrative: (units unknown) (unknown) (unknown) (no date) (unknown) (unknown) Exam (units unknown) (unknown) (unknown) (no date) (unknown) (unknown) Fall from bed, resulting in pathologic left femoral neck fracture, acute, (units unknown) (unknown) (unknown) (no date) (unknown) (unknown) Fraction of Inspired Oxygen 24 (units unknown) (unknown) (unknown) (no date) (unknown) (unknown) GERD, HTN who resides at a facility on [facility], was brought into the ED (units unknown) (unknown) (unknown) (no date) (unknown) (unknown) GERD, chronic, present on admission (units unknown) (unknown) (unknown) (no date) (unknown) (unknown) General: Patient is a elderly gentleman, in n oacute distress (units unknown) (unknown) (unknown) (no date) (unknown) (unknown) Glucose 129 H (units unknown) (unknown) (unknown) (no date) (unknown) (unknown) HEENT: Normocephalic, atraumatic,MMM (units unknown) (unknown) (unknown) (no date) (unknown) (unknown) Hct 22.4 L (units unknown) (unknown) (unknown) (no date) (unknown) (unknown) Heart burn (units unknown) (unknown) (unknown) (no date) (unknown) (unknown) Hgb 7.5 L (units unknown) (unknown) (unknown) (no date) (unknown) (unknown) Hyperlipidemia, chronic, present on admission (units unknown) (unknown) (unknown) (no date) (unknown) (unknown) Hypertension, essential, chronic, present on admission (units unknown) (unknown) (unknown) (no date) (unknown) (unknown) Interval history: (units unknown) (unknown) (unknown) (no date) (unknown) (unknown) Iron-deficiency anemia, chronic, present on admission (units unknown) (unknown) (unknown) (no date) (unknown) (unknown) [address] [address] (units unknown) (unknown) (unknown) (no date) (unknown) (unknown) Laboratory Results - last 24 hr (units unknown) (unknown) (unknown) (no date) (unknown) (unknown) Labs (units unknown) (unknown) (unknown) (no date) (unknown) (unknown) Labs: (units unknown) (unknown) (unknown) (no date) (unknown) (unknown) Donna Garcia is a 77-year-old male with a past medical history of seizure (units unknown) (unknown) (unknown) (no date) (unknown) (unknown) Lungs: Auscultation of all lung arec are clear without adventitious sounds, (units unknown) (unknown) (unknown) (no date) (unknown) (unknown) Lymph # (Auto) 700 L (units unknown) (unknown) (unknown) (no date) (unknown) (unknown) Lymph % (Auto) 6.1 L D (units unknown) (unknown) (unknown) (no date) (unknown) (unknown) MCH 33.3 (units unknown) (unknown) (unknown) (no date) (unknown) (unknown) MCHC 33.6 (units unknown) (unknown) (unknown) (no date) (unknown) (unknown) MCV 99.1 (units unknown) (unknown) (unknown) (no date) (unknown) (unknown) Medical History (units unknown) (unknown) (unknown) (no date) (unknown) (unknown) Aurora # (Auto) 600 (units unknown) (unknown) (unknown) (no date) (unknown) (unknown) [place] % (Auto) 5.5 (units unknown) (unknown) (unknown) (no date) (unknown) (unknown) Musculoskeletal: Significant muscle wasting throughout (units unknown) (unknown) (unknown) (no date) (unknown) (unknown) Narrative (units unknown) (unknown) (unknown) (no date) (unknown) (unknown) Nasal Screen MRSA (PCR) Detected H (units unknown) (unknown) (unknown) (no date) (unknown) (unknown) Neck pain (units unknown) (unknown) (unknown) (no date) (unknown) (unknown) Neuro: Alert and orientated to self. sensation to touch intact, no gross (units unknown) (unknown) (unknown) (no date) (unknown) (unknown) Neut # (Auto) 9400 H (units unknown) (unknown) (unknown) (no date) (unknown) (unknown) Neut % (Auto) 88.3 H D (units unknown) (unknown) (unknown) (no date) (unknown) (unknown) No history of previous surgery (units unknown) (unknown) (unknown) (no date) (unknown) (unknown) Numbness and tingling (units unknown) (unknown) (unknown) (no date) (unknown) (unknown) Objective (units unknown) (unknown) (unknown) (no date) (unknown) (unknown) Osteoarthritis (units unknown) (unknown) (unknown) (no date) (unknown) (unknown) Osteoarthritis, chronic, present on admission (units unknown) (unknown) (unknown) (no date) (unknown) (unknown) Oxygen Delivery Method Nasal Cannula (units unknown) (unknown) (unknown) (no date) (unknown) (unknown) Oxygen Delivery Method (units unknown) (unknown) (unknown) (no date) (unknown) (unknown) Oxygen Flow Rate 2 (units unknown) (unknown) (unknown) (no date) (unknown) (unknown) Oxygen Flow Rate (units unknown) (unknown) (unknown) (no date) (unknown) (unknown) PFSH (units unknown) (unknown) (unknown) (no date) (unknown) (unknown) Pain (units unknown) (unknown) (unknown) (no date) (unknown) (unknown) Patient: Donna Garcia MR#: [id number] (units unknown) (unknown) (unknown) (no date) (unknown) (unknown) Plt Count 157 (units unknown) (unknown) (unknown) (no date) (unknown) (unknown) Potassium 4.1 (units unknown) (unknown) (unknown) (no date) (unknown) (unknown) Progress Note (units unknown) (unknown) (unknown) (no date) (unknown) (unknown) Provider: Abdoul Parra D.O. (units unknown) (unknown) (unknown) (no date) (unknown) (unknown) Psych: Patient is pleasant, able to follow commands. (units unknown) (unknown) (unknown) (no date) (unknown) (unknown) Pulse Oximetry 90 L (units unknown) (unknown) (unknown) (no date) (unknown) (unknown) Pulse Oximetry 92 (units unknown) (unknown) (unknown) (no date) (unknown) (unknown) Pulse Oximetry 93 92 (units unknown) (unknown) (unknown) (no date) (unknown) (unknown) Pulse Oximetry 93 97 (units unknown) (unknown) (unknown) (no date) (unknown) (unknown) Pulse Oximetry 94 (units unknown) (unknown) (unknown) (no date) (unknown) (unknown) Pulse Oximetry 96 99 94 (units unknown) (unknown) (unknown) (no date) (unknown) (unknown) Pulse Oximetry (units unknown) (unknown) (unknown) (no date) (unknown) (unknown) Pulse Rate 73 (units unknown) (unknown) (unknown) (no date) (unknown) (unknown) Pulse Rate 90 (units unknown) (unknown) (unknown) (no date) (unknown) (unknown) Pulse Rate 92 H 90 (units unknown) (unknown) (unknown) (no date) (unknown) (unknown) Pulse Rate 97 H 98 H (units unknown) (unknown) (unknown) (no date) (unknown) (unknown) Pulse Rate 99 H 93 H (units unknown) (unknown) (unknown) (no date) (unknown) (unknown) Pulse Rate 99 H 96 H 97 H (units unknown) (unknown) (unknown) (no date) (unknown) (unknown) Pulse Rate 99 H (units unknown) (unknown) (unknown) (no date) (unknown) (unknown) Quality (units unknown) (unknown) (unknown) (no date) (unknown) (unknown) RBBB (right bundle branch block) (units unknown) (unknown) (unknown) (no date) (unknown) (unknown) RBC 2.26 L (units unknown) (unknown) (unknown) (no date) (unknown) (unknown) RDW 16.1 H (units unknown) (unknown) (unknown) (no date) (unknown) (unknown) Respiratory Rate 16 (units unknown) (unknown) (unknown) (no date) (unknown) (unknown) Respiratory Rate 18 22 (units unknown) (unknown) (unknown) (no date) (unknown) (unknown) Respiratory Rate 19 (units unknown) (unknown) (unknown) (no date) (unknown) (unknown) Respiratory Rate 22 31 H (units unknown) (unknown) (unknown) (no date) (unknown) (unknown) Respiratory Rate 25 H 18 (units unknown) (unknown) (unknown) (no date) (unknown) (unknown) Respiratory Rate 26 H 17 21 (units unknown) (unknown) (unknown) (no date) (unknown) (unknown) Respiratory Rate 27 H (units unknown) (unknown) (unknown) (no date) (unknown) (unknown) SaO2/FiO2 Ratio 400 (units unknown) (unknown) (unknown) (no date) (unknown) (unknown) Seizure disorder, chronic, present on admission (units unknown) (unknown) (unknown) (no date) (unknown) (unknown) Seizures (units unknown) (unknown) (unknown) (no date) (unknown) (unknown) Signed By:<Electronically signed by Abdoul Parra D.O.> (units unknown) (unknown) (unknown) (no date) (unknown) (unknown) Skin: Warm dry and intact without rashes, ulcerations or petechiae. (units unknown) (unknown) (unknown) (no date) (unknown) (unknown) Smoking Status: Smoker, status unknown (units unknown) (unknown) (unknown) (no date) (unknown) (unknown) Social History (units unknown) (unknown) (unknown) (no date) (unknown) (unknown) Sodium 137 (units unknown) (unknown) (unknown) (no date) (unknown) (unknown) Subjective (units unknown) (unknown) (unknown) (no date) (unknown) (unknown) Surgical History (units unknown) (unknown) (unknown) (no date) (unknown) (unknown) Surrogate decision maker: Sister Vladimir leon (units unknown) (unknown) (unknown) (no date) (unknown) (unknown) TIA (transient ischemic attack) (units unknown) (unknown) (unknown) (no date) (unknown) (unknown) Temperature 97.4 F L (units unknown) (unknown) (unknown) (no date) (unknown) (unknown) Temperature 99.2 F (units unknown) (unknown) (unknown) (no date) (unknown) (unknown) Temperature (units unknown) (unknown) (unknown) (no date) (unknown) (unknown) VTE (units unknown) (unknown) (unknown) (no date) (unknown) (unknown) Vital Signs (units unknown) (unknown) (unknown) (no date) (unknown) (unknown) WBC 10.7 D (units unknown) (unknown) (unknown) (no date) (unknown) (unknown) [Embedded Image Not Available] (units unknown) (unknown) (unknown) (no date) (unknown) (unknown) after rolling out of bed landing on the floor fracturing left femur. (units unknown) (unknown) (unknown) (no date) (unknown) (unknown) alcohol intake: current (units unknown) (unknown) (unknown) (no date) (unknown) (unknown) bruit, no cardiac pulsations present. (units unknown) (unknown) (unknown) (no date) (unknown) (unknown) deficits noted of cranial nerves. (units unknown) (unknown) (unknown) (no date) (unknown) (unknown) disorder, history of TIA, RTBBB Alzheimer's dementia, HDL, iron-deficiency, (units unknown) (unknown) (unknown) (no date) (unknown) (unknown) expected length of stay to exceed 2 midnights. Will likely return to snf (units unknown) (unknown) (unknown) (no date) (unknown) (unknown) household members: family (units unknown) (unknown) (unknown) (no date) (unknown) (unknown) on days to verify advanced directive. (units unknown) (unknown) (unknown) (no date) (unknown) (unknown) pain just above his knee, improved mildly with pain medication. No nausea or (units unknown) (unknown) (unknown) (no date) (unknown) (unknown) present on admission (units unknown) (unknown) (unknown) (no date) (unknown) (unknown) s/p repair, is bed bound at baseline per report. Complains of tightness and deep (units unknown) (unknown) (unknown) (no date) (unknown) (unknown) tomorrow if medically stable. (units unknown) (unknown) (unknown) (no date) (unknown) (unknown) up with orthopedic surgery. (units unknown) (unknown) (unknown) (no date) (unknown) (unknown) vomiting, no chest pain or shortness of breath. (units unknown) (unknown) (unknown) (no date) (unknown) (unknown) wheezes, rhonchi, or rales. (units unknown) (unknown) (unknown) (no date) (unknown) (unknown) without nasal flaring, retractions, tachypneic or labored breathing. (units unknown) (unknown) Result panel 148 (unknown) (no date) (unknown) (unknown) 21.0 % (unknown) (unknown) (no date) (unknown) (unknown) 7.1 g/dl (unknown) Result panel 149 (unknown) (no date) (unknown) (unknown) (no value) (units unknown) (unknown) (unknown) (no date) (unknown) (unknown) [id number] (units unknown) (unknown) (unknown) (no date) (unknown) (unknown) 02/09/23 (units unknown) (unknown) (unknown) (no date) (unknown) (unknown) 1. No acute cardiopulmonary disease. (units unknown) (unknown) (unknown) (no date) (unknown) (unknown) [address] [place] [address] (units unknown) (unknown) (unknown) (no date) (unknown) (unknown) Accession Number: [id number] (units unknown) (unknown) (unknown) (no date) (unknown) (unknown) Age/Sex: 77 / M Date of Service: (units unknown) (unknown) (unknown) (no date) (unknown) (unknown) [place] [address] (units unknown) (unknown) (unknown) (no date) (unknown) (unknown) Approved by: Juwan Stevenson M.D. on 02/09/2023 at 23:36 (units unknown) (unknown) (unknown) (no date) (unknown) (unknown) Bones and chest wall: No suspicious bony lesions. Overlying soft tissues (units unknown) (unknown) (unknown) (no date) (unknown) (unknown) COMPARISON: [facility], CR, XR CHEST 1V, 02/08/2023, 2:57. (units unknown) (unknown) (unknown) (no date) (unknown) (unknown) : 1945 Acct:[id number] (units unknown) (unknown) (unknown) (no date) (unknown) (unknown) Dictated by: Juwan Stevenson M.D. on 02/09/2023 at 23:36 (units unknown) (unknown) (unknown) (no date) (unknown) (unknown) FINDINGS: (units unknown) (unknown) (unknown) (no date) (unknown) (unknown) IMPRESSION: (units unknown) (unknown) (unknown) (no date) (unknown) (unknown) INDICATIONS: fever, poss asp (units unknown) (unknown) (unknown) (no date) (unknown) (unknown) [facility] (units unknown) (unknown) (unknown) (no date) (unknown) (unknown) Loc: AC 209-1 (units unknown) (unknown) (unknown) (no date) (unknown) (unknown) Lungs and pleura: Lungs are clear. No pleural effusions or pneumothorax. (units unknown) (unknown) (unknown) (no date) (unknown) (unknown) Mediastinum: Mediastinal contours appear normal. Heart size is normal. (units unknown) (unknown) (unknown) (no date) (unknown) (unknown) Ordering Provider: Edita Galindo-BC (units unknown) (unknown) (unknown) (no date) (unknown) (unknown) PROCEDURE: XR CHEST 1V (units unknown) (unknown) (unknown) (no date) (unknown) (unknown) Patient: Donan Garcia MR#: M (units unknown) (unknown) (unknown) (no date) (unknown) (unknown) Procedure: XR chest 1V (units unknown) (unknown) (unknown) (no date) (unknown) (unknown) Signed (units unknown) (unknown) (unknown) (no date) (unknown) (unknown) Surgical changes and devices: Postsurgical changes partially visualized within (units unknown) (unknown) (unknown) (no date) (unknown) (unknown) TECHNIQUE: One view of the chest was acquired. (units unknown) (unknown) (unknown) (no date) (unknown) (unknown) XRay Report (units unknown) (unknown) (unknown) (no date) (unknown) (unknown) appear (units unknown) (unknown) (unknown) (no date) (unknown) (unknown) cervical spine. (units unknown) (unknown) (unknown) (no date) (unknown) (unknown) the lower (units unknown) (unknown) (unknown) (no date) (unknown) (unknown) unremarkable. (units unknown) (unknown) Result panel 150 (unknown) (no date) (unknown) (unknown) > 60 ml/min (unknown) (unknown) (no date) (unknown) (unknown) > 60 ml/min (unknown) (unknown) (no date) (unknown) (unknown) 0.83 mg/dl (unknown) (unknown) (no date) (unknown) (unknown) 105 mg/dl (unknown) (unknown) (no date) (unknown) (unknown) 105 mg/dl (unknown) (unknown) (no date) (unknown) (unknown) 105 mmol/l (unknown) (unknown) (no date) (unknown) (unknown) 136 mmol/l (unknown) (unknown) (no date) (unknown) (unknown) 21 mg/dl (unknown) (unknown) (no date) (unknown) (unknown) 25.3 (units unknown) (unknown) (unknown) (no date) (unknown) (unknown) 29 mmol/l (unknown) (unknown) (no date) (unknown) (unknown) 3.9 mmol/l (unknown) (unknown) (no date) (unknown) (unknown) 7.2 mg/dl (unknown) Result panel 151 (unknown) (no date) (unknown) (unknown) 0 /ul (unknown) (unknown) (no date) (unknown) (unknown) 0 /ul (unknown) (unknown) (no date) (unknown) (unknown) 0.1 % (unknown) (unknown) (no date) (unknown) (unknown) 0.4 % (unknown) (unknown) (no date) (unknown) (unknown) 1.86 x10 6/ul (unknown) (unknown) (no date) (unknown) (unknown) 11.0 % (unknown) (unknown) (no date) (unknown) (unknown) 152 x10 3/ul (unknown) (unknown) (no date) (unknown) (unknown) 16.3 % (unknown) (unknown) (no date) (unknown) (unknown) 1700 /ul (unknown) (unknown) (no date) (unknown) (unknown) 18.3 % (unknown) (unknown) (no date) (unknown) (unknown) 18.3 % (unknown) (unknown) (no date) (unknown) (unknown) 23.1 % (unknown) (unknown) (no date) (unknown) (unknown) 33.9 pg (unknown) (unknown) (no date) (unknown) (unknown) 34.4 % (unknown) (unknown) (no date) (unknown) (unknown) 4700 /ul (unknown) (unknown) (no date) (unknown) (unknown) 6.3 g/dl (unknown) (unknown) (no date) (unknown) (unknown) 6.3 g/dl (unknown) (unknown) (no date) (unknown) (unknown) 65.4 % (unknown) (unknown) (no date) (unknown) (unknown) 65.4 % (unknown) (unknown) (no date) (unknown) (unknown) 7.2 x10 3/ul (unknown) (unknown) (no date) (unknown) (unknown) 800 /ul (unknown) (unknown) (no date) (unknown) (unknown) 98.6 fl (unknown) Result panel 152 (unknown) (no date) (unknown) (unknown) 0 /ul (unknown) (unknown) (no date) (unknown) (unknown) 0 /ul (unknown) (unknown) (no date) (unknown) (unknown) 0.1 % (unknown) (unknown) (no date) (unknown) (unknown) 0.4 % (unknown) (unknown) (no date) (unknown) (unknown) 1 (units unknown) (unknown) (unknown) (no date) (unknown) (unknown) 1.86 x10 6/ul (unknown) (unknown) (no date) (unknown) (unknown) 11.0 % (unknown) (unknown) (no date) (unknown) (unknown) 152 x10 3/ul (unknown) (unknown) (no date) (unknown) (unknown) 16.3 % (unknown) (unknown) (no date) (unknown) (unknown) 1700 /ul (unknown) (unknown) (no date) (unknown) (unknown) 18.3 % (unknown) (unknown) (no date) (unknown) (unknown) 18.3 % (unknown) (unknown) (no date) (unknown) (unknown) 23.1 % (unknown) (unknown) (no date) (unknown) (unknown) 33.9 pg (unknown) (unknown) (no date) (unknown) (unknown) 34.4 % (unknown) (unknown) (no date) (unknown) (unknown) 4700 /ul (unknown) (unknown) (no date) (unknown) (unknown) 6.3 g/dl (unknown) (unknown) (no date) (unknown) (unknown) 6.3 g/dl (unknown) (unknown) (no date) (unknown) (unknown) 65.4 % (unknown) (unknown) (no date) (unknown) (unknown) 65.4 % (unknown) (unknown) (no date) (unknown) (unknown) 7.2 x10 3/ul (unknown) (unknown) (no date) (unknown) (unknown) 800 /ul (unknown) (unknown) (no date) (unknown) (unknown) 98.6 fl (unknown) (unknown) (no date) (unknown) (unknown) See Below (units unknown) (unknown) Result panel 153 (unknown) (no date) (unknown) (unknown) TRANSFUSED PRODUCT: Packed Cells COUNT: 1 (units unknown) (unknown) Result panel 154 (unknown) (no date) (unknown) (unknown) TRANSFUSED PRODUCT: Packed Cells COUNT: 1 (units unknown) (unknown) Result panel 155 (unknown) (no date) (unknown) (unknown) TRANSFUSED PRODUCT: Packed Cells COUNT: 1 (units unknown) (unknown) Result panel 156 (unknown) (no date) (unknown) (unknown) TRANSFUSED PRODUCT: Packed Cells COUNT: 1 (units unknown) (unknown) Result panel 157 (unknown) (no date) (unknown) (unknown) TRANSFUSED PRODUCT: Packed Cells COUNT: 1 (units unknown) (unknown) Result panel 158 (unknown) (no date) (unknown) (unknown) TRANSFUSED PRODUCT: Packed Cells COUNT: 1 (units unknown) (unknown) Result panel 159 (unknown) (no date) (unknown) (unknown) B Positive (units unknown) (unknown) (unknown) (no date) (unknown) (unknown) B Positive (units unknown) (unknown) (unknown) (no date) (unknown) (unknown) NEGATIVE (units unknown) (unknown) (unknown) (no date) (unknown) (unknown) TRANSFUSED PRODUCT: Packed Cells COUNT: 2 (units unknown) (unknown) Result panel 160 (unknown) (no date) (unknown) (unknown) B Positive (units unknown) (unknown) (unknown) (no date) (unknown) (unknown) B Positive (units unknown) (unknown) (unknown) (no date) (unknown) (unknown) NEGATIVE (units unknown) (unknown) (unknown) (no date) (unknown) (unknown) TRANSFUSED PRODUCT: Packed Cells COUNT: 2 (units unknown) (unknown) Result panel 161 (unknown) (no date) (unknown) (unknown) B Positive (units unknown) (unknown) (unknown) (no date) (unknown) (unknown) B Positive (units unknown) (unknown) (unknown) (no date) (unknown) (unknown) NEGATIVE (units unknown) (unknown) Result panel 162 (unknown) (no date) (unknown) (unknown) B Positive (units unknown) (unknown) (unknown) (no date) (unknown) (unknown) B Positive (units unknown) (unknown) (unknown) (no date) (unknown) (unknown) NEGATIVE (units unknown) (unknown) (unknown) (no date) (unknown) (unknown) TRANSFUSED PRODUCT: Packed Cells COUNT: 2 (units unknown) (unknown) Result panel 163 (unknown) (no date) (unknown) (unknown) (no value) (units unknown) (unknown) (unknown) (no date) (unknown) (unknown) #Acute blood loss anemia, with chronic iron deficiency anemia (units unknown) (unknown) (unknown) (no date) (unknown) (unknown) #Alzheimer's dementia, chronic, present on admission (units unknown) (unknown) (unknown) (no date) (unknown) (unknown) #Fall from bed, resulting in pathologic left femoral neck fracture, acute, (units unknown) (unknown) (unknown) (no date) (unknown) (unknown) #GERD, chronic, present on admission (units unknown) (unknown) (unknown) (no date) (unknown) (unknown) #Hyperlipidemia, chronic, present on admission (units unknown) (unknown) (unknown) (no date) (unknown) (unknown) #Hypertension, essential, chronic, present on admission (units unknown) (unknown) (unknown) (no date) (unknown) (unknown) #Osteoarthritis, chronic, present on admission (units unknown) (unknown) (unknown) (no date) (unknown) (unknown) #Seizure disorder, chronic, present on admission (units unknown) (unknown) (unknown) (no date) (unknown) (unknown) #advanced care planning (units unknown) (unknown) (unknown) (no date) (unknown) (unknown) (past 8 hours): (units unknown) (unknown) (unknown) (no date) (unknown) (unknown) * Continue Keppra (units unknown) (unknown) (unknown) (no date) (unknown) (unknown) * Continue gabapentin (units unknown) (unknown) (unknown) (no date) (unknown) (unknown) * Continue lipitor. (units unknown) (unknown) (unknown) (no date) (unknown) (unknown) * Continue sertraline, prazosin (units unknown) (unknown) (unknown) (no date) (unknown) (unknown) * Fall precautions (units unknown) (unknown) (unknown) (no date) (unknown) (unknown) * Hold metoprolol as BP is soft at this time 107/56 (units unknown) (unknown) (unknown) (no date) (unknown) (unknown) * Hold omeprazole till after surgery (units unknown) (unknown) (unknown) (no date) (unknown) (unknown) * Limit patient's stimulation + agitation as much as possible (units unknown) (unknown) (unknown) (no date) (unknown) (unknown) * Seizure precautions (units unknown) (unknown) (unknown) (no date) (unknown) (unknown) * consider CT as noted below. (units unknown) (unknown) (unknown) (no date) (unknown) (unknown) * likely discharge back to snf when anemia stabilized (units unknown) (unknown) (unknown) (no date) (unknown) (unknown) * mildly hypotensive overnight after surgery, probably due to anemia (units unknown) (unknown) (unknown) (no date) (unknown) (unknown) * patient bedbound at baseline (units unknown) (unknown) (unknown) (no date) (unknown) (unknown) * s/p repair with orthopedic surgery (units unknown) (unknown) (unknown) (no date) (unknown) (unknown) - I spent 17 minutes involved in the advanced care planning of this patient (units unknown) (unknown) (unknown) (no date) (unknown) (unknown) - if h/h continues to downtrend, consider non-contrast CT to evaluate for (units unknown) (unknown) (unknown) (no date) (unknown) (unknown) - presume acute blood loss secondary to surgical procedure, also has received (units unknown) (unknown) (unknown) (no date) (unknown) (unknown) [id number] (units unknown) (unknown) (unknown) (no date) (unknown) (unknown) 05:00 (units unknown) (unknown) (unknown) (no date) (unknown) (unknown) 02/09/23 02/10/23 02/10/23 (units unknown) (unknown) (unknown) (no date) (unknown) (unknown) 02/10/23 05:00 (units unknown) (unknown) (unknown) (no date) (unknown) (unknown) 02/10/23 (units unknown) (unknown) (unknown) (no date) (unknown) (unknown) 08:00 02/10/23 (units unknown) (unknown) (unknown) (no date) (unknown) (unknown) 08:20 02/10/23 (units unknown) (unknown) (unknown) (no date) (unknown) (unknown) 08:40 (units unknown) (unknown) (unknown) (no date) (unknown) (unknown) 11:57 02/10/23 (units unknown) (unknown) (unknown) (no date) (unknown) (unknown) 12:03 (units unknown) (unknown) (unknown) (no date) (unknown) (unknown) 12:04 02/10/23 (units unknown) (unknown) (unknown) (no date) (unknown) (unknown) 12:06 02/10/23 (units unknown) (unknown) (unknown) (no date) (unknown) (unknown) 12:31 (units unknown) (unknown) (unknown) (no date) (unknown) (unknown) 13:55 (units unknown) (unknown) (unknown) (no date) (unknown) (unknown) 21:05 05:00 05:00 (units unknown) (unknown) (unknown) (no date) (unknown) (unknown) 2U PRBC but had pulled out IV lines. He then refused transfusion this morning (units unknown) (unknown) (unknown) (no date) (unknown) (unknown) Abdomen: S NT ND (units unknown) (unknown) (unknown) (no date) (unknown) (unknown) Age/Sex: 77 / M (units unknown) (unknown) (unknown) (no date) (unknown) (unknown) Alzheimer's dementia (units unknown) (unknown) (unknown) (no date) (unknown) (unknown) Anisocytosis 1+ H (units unknown) (unknown) (unknown) (no date) (unknown) (unknown) Anisocytosis (units unknown) (unknown) (unknown) (no date) (unknown) (unknown) Antibody Screen Negative (units unknown) (unknown) (unknown) (no date) (unknown) (unknown) Antibody Screen (units unknown) (unknown) (unknown) (no date) (unknown) (unknown) Anxiety (units unknown) (unknown) (unknown) (no date) (unknown) (unknown) Assessment + Plan narrative: (units unknown) (unknown) (unknown) (no date) (unknown) (unknown) Assessment + Plan (units unknown) (unknown) (unknown) (no date) (unknown) (unknown) BUN 21 H (units unknown) (unknown) (unknown) (no date) (unknown) (unknown) BUN (units unknown) (unknown) (unknown) (no date) (unknown) (unknown) BUN/Creatinine Ratio 25.3 H (units unknown) (unknown) (unknown) (no date) (unknown) (unknown) BUN/Creatinine Ratio (units unknown) (unknown) (unknown) (no date) (unknown) (unknown) Baso # (Auto) 0 (units unknown) (unknown) (unknown) (no date) (unknown) (unknown) Baso # (Auto) (units unknown) (unknown) (unknown) (no date) (unknown) (unknown) Baso % (Auto) 0.1 (units unknown) (unknown) (unknown) (no date) (unknown) (unknown) Baso % (Auto) (units unknown) (unknown) (unknown) (no date) (unknown) (unknown) Blood Pressure 93/52 L 93/52 L 89/62 L (units unknown) (unknown) (unknown) (no date) (unknown) (unknown) Blood Pressure 94/53 L 94/53 L 105/60 (units unknown) (unknown) (unknown) (no date) (unknown) (unknown) Blood Pressure 94/53 L 94/53 L (units unknown) (unknown) (unknown) (no date) (unknown) (unknown) Blood Pressure 98/42 L (units unknown) (unknown) (unknown) (no date) (unknown) (unknown) Blood Type B Positive (units unknown) (unknown) (unknown) (no date) (unknown) (unknown) Blood Type (units unknown) (unknown) (unknown) (no date) (unknown) (unknown) Calcium 7.2 L (units unknown) (unknown) (unknown) (no date) (unknown) (unknown) Calcium (units unknown) (unknown) (unknown) (no date) (unknown) (unknown) Carbon Dioxide 29 (units unknown) (unknown) (unknown) (no date) (unknown) (unknown) Carbon Dioxide (units unknown) (unknown) (unknown) (no date) (unknown) (unknown) Cardio: regular rate and rhythm without murmur, rubs, or gallops, no carotid (units unknown) (unknown) (unknown) (no date) (unknown) (unknown) Chest pain (units unknown) (unknown) (unknown) (no date) (unknown) (unknown) Chest: Normal AP diameter and contour without kyphoscoliosis, Equal chest rise (units unknown) (unknown) (unknown) (no date) (unknown) (unknown) Chloride 105 (units unknown) (unknown) (unknown) (no date) (unknown) (unknown) Chloride (units unknown) (unknown) (unknown) (no date) (unknown) (unknown) Code status:Full as discussed with patient and POA at bedside today. (units unknown) (unknown) (unknown) (no date) (unknown) (unknown) Creatinine 0.83 (units unknown) (unknown) (unknown) (no date) (unknown) (unknown) Creatinine (units unknown) (unknown) (unknown) (no date) (unknown) (unknown) Crossmatch See Detail (units unknown) (unknown) (unknown) (no date) (unknown) (unknown) Crossmatch (units unknown) (unknown) (unknown) (no date) (unknown) (unknown) : 1945 Acct:[id number] (units unknown) (unknown) (unknown) (no date) (unknown) (unknown) DVT/VTE prophylaxis: Holding medication due to surgery, right SCD only (units unknown) (unknown) (unknown) (no date) (unknown) (unknown) Date of Service: 02/08/23 (units unknown) (unknown) (unknown) (no date) (unknown) (unknown) Deep Vein Thrombosis/Pulmonary Embolism Present on Admission: No (units unknown) (unknown) (unknown) (no date) (unknown) (unknown) Depression (units unknown) (unknown) (unknown) (no date) (unknown) (unknown) Disposition: Patient admitted to acute care for left femur fracture repair, (units unknown) (unknown) (unknown) (no date) (unknown) (unknown) Easy bruisability (units unknown) (unknown) (unknown) (no date) (unknown) (unknown) Eos # (Auto) 0 (units unknown) (unknown) (unknown) (no date) (unknown) (unknown) Eos # (Auto) (units unknown) (unknown) (unknown) (no date) (unknown) (unknown) Eos % (Auto) 0.4 L (units unknown) (unknown) (unknown) (no date) (unknown) (unknown) Eos % (Auto) (units unknown) (unknown) (unknown) (no date) (unknown) (unknown) Epilepsy (units unknown) (unknown) (unknown) (no date) (unknown) (unknown) Estimated GFR > 60 (units unknown) (unknown) (unknown) (no date) (unknown) (unknown) Estimated GFR (units unknown) (unknown) (unknown) (no date) (unknown) (unknown) Exam Narrative: (units unknown) (unknown) (unknown) (no date) (unknown) (unknown) Exam (units unknown) (unknown) (unknown) (no date) (unknown) (unknown) Fraction of Inspired Oxygen 24 (units unknown) (unknown) (unknown) (no date) (unknown) (unknown) GERD, HTN who resides at a facility on [facility], was brought into the ED (units unknown) (unknown) (unknown) (no date) (unknown) (unknown) General: Patient is a elderly gentleman, in n oacute distress (units unknown) (unknown) (unknown) (no date) (unknown) (unknown) Glucose 105 (units unknown) (unknown) (unknown) (no date) (unknown) (unknown) Glucose (units unknown) (unknown) (unknown) (no date) (unknown) (unknown) HEENT: Normocephalic, atraumatic,MMM (units unknown) (unknown) (unknown) (no date) (unknown) (unknown) Hct 21.0 L 18.3 L* (units unknown) (unknown) (unknown) (no date) (unknown) (unknown) Hct (units unknown) (unknown) (unknown) (no date) (unknown) (unknown) Heart burn (units unknown) (unknown) (unknown) (no date) (unknown) (unknown) Hgb 7.1 L 6.3 L* (units unknown) (unknown) (unknown) (no date) (unknown) (unknown) Hgb (units unknown) (unknown) (unknown) (no date) (unknown) (unknown) Interval history: (units unknown) (unknown) (unknown) (no date) (unknown) (unknown) [address] [id number] (units unknown) (unknown) (unknown) (no date) (unknown) (unknown) Laboratory Results - last 24 hr (units unknown) (unknown) (unknown) (no date) (unknown) (unknown) Labs (units unknown) (unknown) (unknown) (no date) (unknown) (unknown) Labs: (units unknown) (unknown) (unknown) (no date) (unknown) (unknown) Donna Garcia is a 77-year-old male with a past medical history of seizure (units unknown) (unknown) (unknown) (no date) (unknown) (unknown) Lungs: Auscultation of all lung arce are clear without adventitious sounds, (units unknown) (unknown) (unknown) (no date) (unknown) (unknown) Lymph # (Auto) 1700 (units unknown) (unknown) (unknown) (no date) (unknown) (unknown) Lymph # (Auto) (units unknown) (unknown) (unknown) (no date) (unknown) (unknown) Lymph % (Auto) 23.1 L (units unknown) (unknown) (unknown) (no date) (unknown) (unknown) Lymph % (Auto) (units unknown) (unknown) (unknown) (no date) (unknown) (unknown) MCH 33.9 (units unknown) (unknown) (unknown) (no date) (unknown) (unknown) MCH (units unknown) (unknown) (unknown) (no date) (unknown) (unknown) MCHC 34.4 (units unknown) (unknown) (unknown) (no date) (unknown) (unknown) MCHC (units unknown) (unknown) (unknown) (no date) (unknown) (unknown) MCV 98.6 (units unknown) (unknown) (unknown) (no date) (unknown) (unknown) MCV (units unknown) (unknown) (unknown) (no date) (unknown) (unknown) Medical History (units unknown) (unknown) (unknown) (no date) (unknown) (unknown) Aurora # (Auto) 800 (units unknown) (unknown) (unknown) (no date) (unknown) (unknown) Aurora # (Auto) (units unknown) (unknown) (unknown) (no date) (unknown) (unknown) [place] % (Auto) 11.0 (units unknown) (unknown) (unknown) (no date) (unknown) (unknown) Aurora % (Auto) (units unknown) (unknown) (unknown) (no date) (unknown) (unknown) Musculoskeletal: Significant muscle wasting throughout (units unknown) (unknown) (unknown) (no date) (unknown) (unknown) Narrative (units unknown) (unknown) (unknown) (no date) (unknown) (unknown) Neck pain (units unknown) (unknown) (unknown) (no date) (unknown) (unknown) Neuro: Alert and orientated to self. sensation to touch intact, no gross (units unknown) (unknown) (unknown) (no date) (unknown) (unknown) Neut # (Auto) 4700 (units unknown) (unknown) (unknown) (no date) (unknown) (unknown) Neut # (Auto) (units unknown) (unknown) (unknown) (no date) (unknown) (unknown) Neut % (Auto) 65.4 D (units unknown) (unknown) (unknown) (no date) (unknown) (unknown) Neut % (Auto) (units unknown) (unknown) (unknown) (no date) (unknown) (unknown) No history of previous surgery (units unknown) (unknown) (unknown) (no date) (unknown) (unknown) Numbness and tingling (units unknown) (unknown) (unknown) (no date) (unknown) (unknown) Objective (units unknown) (unknown) (unknown) (no date) (unknown) (unknown) Osteoarthritis (units unknown) (unknown) (unknown) (no date) (unknown) (unknown) Oxygen Delivery Method Nasal Cannula (units unknown) (unknown) (unknown) (no date) (unknown) (unknown) Oxygen Delivery Method (units unknown) (unknown) (unknown) (no date) (unknown) (unknown) Oxygen Flow Rate 2 (units unknown) (unknown) (unknown) (no date) (unknown) (unknown) Oxygen Flow Rate (units unknown) (unknown) (unknown) (no date) (unknown) (unknown) PFSH (units unknown) (unknown) (unknown) (no date) (unknown) (unknown) Pain (units unknown) (unknown) (unknown) (no date) (unknown) (unknown) Patient with worsening anemia overnight. Hg to 6 this morning. Was ordered for (units unknown) (unknown) (unknown) (no date) (unknown) (unknown) Patient: Donna Garcia MR#: [id number] (units unknown) (unknown) (unknown) (no date) (unknown) (unknown) Plt Count 152 (units unknown) (unknown) (unknown) (no date) (unknown) (unknown) Plt Count (units unknown) (unknown) (unknown) (no date) (unknown) (unknown) Potassium 3.9 (units unknown) (unknown) (unknown) (no date) (unknown) (unknown) Potassium (units unknown) (unknown) (unknown) (no date) (unknown) (unknown) Progress Note (units unknown) (unknown) (unknown) (no date) (unknown) (unknown) Provider: Abdoul Parra D.O. (units unknown) (unknown) (unknown) (no date) (unknown) (unknown) Psych: Patient is pleasant, able to follow commands. (units unknown) (unknown) (unknown) (no date) (unknown) (unknown) Pulse Oximetry 97 (units unknown) (unknown) (unknown) (no date) (unknown) (unknown) Pulse Oximetry 99 (units unknown) (unknown) (unknown) (no date) (unknown) (unknown) Pulse Oximetry (units unknown) (unknown) (unknown) (no date) (unknown) (unknown) Pulse Rate 84 84 92 H (units unknown) (unknown) (unknown) (no date) (unknown) (unknown) Pulse Rate 84 84 (units unknown) (unknown) (unknown) (no date) (unknown) (unknown) Pulse Rate 87 (units unknown) (unknown) (unknown) (no date) (unknown) (unknown) Pulse Rate 96 H 95 H 96 H (units unknown) (unknown) (unknown) (no date) (unknown) (unknown) Quality (units unknown) (unknown) (unknown) (no date) (unknown) (unknown) RBBB (right bundle branch block) (units unknown) (unknown) (unknown) (no date) (unknown) (unknown) RBC 1.86 L (units unknown) (unknown) (unknown) (no date) (unknown) (unknown) RBC Morphology See below (units unknown) (unknown) (unknown) (no date) (unknown) (unknown) RBC Morphology (units unknown) (unknown) (unknown) (no date) (unknown) (unknown) RBC (units unknown) (unknown) (unknown) (no date) (unknown) (unknown) RDW 16.3 H (units unknown) (unknown) (unknown) (no date) (unknown) (unknown) RDW (units unknown) (unknown) (unknown) (no date) (unknown) (unknown) Respiratory Rate 16 16 16 (units unknown) (unknown) (unknown) (no date) (unknown) (unknown) Respiratory Rate 16 16 (units unknown) (unknown) (unknown) (no date) (unknown) (unknown) Respiratory Rate 17 17 17 (units unknown) (unknown) (unknown) (no date) (unknown) (unknown) Respiratory Rate 17 (units unknown) (unknown) (unknown) (no date) (unknown) (unknown) SaO2/FiO2 Ratio 400 (units unknown) (unknown) (unknown) (no date) (unknown) (unknown) Seizures (units unknown) (unknown) (unknown) (no date) (unknown) (unknown) Signed By: (units unknown) (unknown) (unknown) (no date) (unknown) (unknown) Skin: Warm dry and intact without rashes, ulcerations or petechiae. (units unknown) (unknown) (unknown) (no date) (unknown) (unknown) Smoking Status: Smoker, status unknown (units unknown) (unknown) (unknown) (no date) (unknown) (unknown) Social History (units unknown) (unknown) (unknown) (no date) (unknown) (unknown) Sodium 136 L (units unknown) (unknown) (unknown) (no date) (unknown) (unknown) Sodium (units unknown) (unknown) (unknown) (no date) (unknown) (unknown) Subjective (units unknown) (unknown) (unknown) (no date) (unknown) (unknown) Surgical History (units unknown) (unknown) (unknown) (no date) (unknown) (unknown) Surrogate decision maker: Sister Vladimir leon (units unknown) (unknown) (unknown) (no date) (unknown) (unknown) TIA (transient ischemic attack) (units unknown) (unknown) (unknown) (no date) (unknown) (unknown) Temperature 98.1 F 98.1 F 99.5 F (units unknown) (unknown) (unknown) (no date) (unknown) (unknown) Temperature 99.1 F (units unknown) (unknown) (unknown) (no date) (unknown) (unknown) Temperature 99.4 F 99.4 F 99 F (units unknown) (unknown) (unknown) (no date) (unknown) (unknown) Temperature 99.4 F 99.4 F (units unknown) (unknown) (unknown) (no date) (unknown) (unknown) VTE (units unknown) (unknown) (unknown) (no date) (unknown) (unknown) Vital Signs (units unknown) (unknown) (unknown) (no date) (unknown) (unknown) WBC 7.2 (units unknown) (unknown) (unknown) (no date) (unknown) (unknown) WBC (units unknown) (unknown) (unknown) (no date) (unknown) (unknown) [Embedded Image Not Available] (units unknown) (unknown) (unknown) (no date) (unknown) (unknown) after rolling out of bed landing on the floor fracturing left femur. (units unknown) (unknown) (unknown) (no date) (unknown) (unknown) alcohol intake: current (units unknown) (unknown) (unknown) (no date) (unknown) (unknown) bleeding at this time. (units unknown) (unknown) (unknown) (no date) (unknown) (unknown) bruit, no cardiac pulsations present. (units unknown) (unknown) (unknown) (no date) (unknown) (unknown) care at this time. He seems to be improving after the transfusion today. He has (units unknown) (unknown) (unknown) (no date) (unknown) (unknown) close to 5L of fluids this admission so may be in part dilutional. There is no (units unknown) (unknown) (unknown) (no date) (unknown) (unknown) continue full care, though he has notable dementia and changes his mind (units unknown) (unknown) (unknown) (no date) (unknown) (unknown) current status post surgically and the plan of care. Patient is wanting to (units unknown) (unknown) (unknown) (no date) (unknown) (unknown) deficits noted of cranial nerves. (units unknown) (unknown) (unknown) (no date) (unknown) (unknown) discomfort are making him more miserable and that he doesn't want to live with (units unknown) (unknown) (unknown) (no date) (unknown) (unknown) discomfort like this.Patient and POA were in agreement to work on pain control, (units unknown) (unknown) (unknown) (no date) (unknown) (unknown) disorder, history of TIA, RTBBB Alzheimer's dementia, HDL, iron-deficiency, (units unknown) (unknown) (unknown) (no date) (unknown) (unknown) expected length of stay to exceed 2 midnights. Will likely return to snf (units unknown) (unknown) (unknown) (no date) (unknown) (unknown) frequently at the moment, however I was able to deduce that his current pain and (units unknown) (unknown) (unknown) (no date) (unknown) (unknown) had no obvious melena, and compartments are soft, cannot identify the source of (units unknown) (unknown) (unknown) (no date) (unknown) (unknown) household members: family (units unknown) (unknown) (unknown) (no date) (unknown) (unknown) improved he would want full care. (units unknown) (unknown) (unknown) (no date) (unknown) (unknown) including discussion with the patient and POA at bedside. Updating all on his (units unknown) (unknown) (unknown) (no date) (unknown) (unknown) morning he was agreeable, but also removed his IV line during the transfusion. I (units unknown) (unknown) (unknown) (no date) (unknown) (unknown) obvious GI bleeding or bruising on exam, dressing is dry. (units unknown) (unknown) (unknown) (no date) (unknown) (unknown) possible hematoma given difficult pain control. (units unknown) (unknown) (unknown) (no date) (unknown) (unknown) possibly readdress code status but he seemed quite clear that if his pain is (units unknown) (unknown) (unknown) (no date) (unknown) (unknown) present on admission (units unknown) (unknown) (unknown) (no date) (unknown) (unknown) saying he wanted to be 'done' with everything. When I spoke with him in the (units unknown) (unknown) (unknown) (no date) (unknown) (unknown) spoke with the patient and POA at bedside, and he does wish to continue full (units unknown) (unknown) (unknown) (no date) (unknown) (unknown) tomorrow if medically stable. (units unknown) (unknown) (unknown) (no date) (unknown) (unknown) wheezes, rhonchi, or rales. (units unknown) (unknown) (unknown) (no date) (unknown) (unknown) without nasal flaring, retractions, tachypneic or labored breathing. (units unknown) (unknown) Result panel 164 (unknown) (no date) (unknown) (unknown) (no value) (units unknown) (unknown) (unknown) (no date) (unknown) (unknown) #Acute blood loss anemia, with chronic iron deficiency anemia (units unknown) (unknown) (unknown) (no date) (unknown) (unknown) #Alzheimer's dementia, chronic, present on admission (units unknown) (unknown) (unknown) (no date) (unknown) (unknown) #Fall from bed, resulting in pathologic left femoral neck fracture, acute, (units unknown) (unknown) (unknown) (no date) (unknown) (unknown) #GERD, chronic, present on admission (units unknown) (unknown) (unknown) (no date) (unknown) (unknown) #Hyperlipidemia, chronic, present on admission (units unknown) (unknown) (unknown) (no date) (unknown) (unknown) #Hypertension, essential, chronic, present on admission (units unknown) (unknown) (unknown) (no date) (unknown) (unknown) #Osteoarthritis, chronic, present on admission (units unknown) (unknown) (unknown) (no date) (unknown) (unknown) #Seizure disorder, chronic, present on admission (units unknown) (unknown) (unknown) (no date) (unknown) (unknown) #advanced care planning (units unknown) (unknown) (unknown) (no date) (unknown) (unknown) #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 (units unknown) (unknown) (unknown) (no date) (unknown) (unknown) (past 8 hours): (units unknown) (unknown) (unknown) (no date) (unknown) (unknown) * Continue Keppra (units unknown) (unknown) (unknown) (no date) (unknown) (unknown) * Continue gabapentin (units unknown) (unknown) (unknown) (no date) (unknown) (unknown) * Continue lipitor. (units unknown) (unknown) (unknown) (no date) (unknown) (unknown) * Continue sertraline, prazosin (units unknown) (unknown) (unknown) (no date) (unknown) (unknown) * Fall precautions (units unknown) (unknown) (unknown) (no date) (unknown) (unknown) * Hold metoprolol as BP is soft at this time 107/56 (units unknown) (unknown) (unknown) (no date) (unknown) (unknown) * Hold omeprazole till after surgery (units unknown) (unknown) (unknown) (no date) (unknown) (unknown) * Limit patient's stimulation + agitation as much as possible (units unknown) (unknown) (unknown) (no date) (unknown) (unknown) * Seizure precautions (units unknown) (unknown) (unknown) (no date) (unknown) (unknown) * consider CT as noted below. (units unknown) (unknown) (unknown) (no date) (unknown) (unknown) * likely discharge back to snf when anemia stabilized (units unknown) (unknown) (unknown) (no date) (unknown) (unknown) * mildly hypotensive overnight after surgery, probably due to anemia (units unknown) (unknown) (unknown) (no date) (unknown) (unknown) * patient bedbound at baseline (units unknown) (unknown) (unknown) (no date) (unknown) (unknown) * s/p repair with orthopedic surgery (units unknown) (unknown) (unknown) (no date) (unknown) (unknown) - I spent 17 minutes involved in the advanced care planning of this patient (units unknown) (unknown) (unknown) (no date) (unknown) (unknown) - if h/h continues to downtrend, consider non-contrast CT to evaluate for (units unknown) (unknown) (unknown) (no date) (unknown) (unknown) - presume acute blood loss secondary to surgical procedure, also has received (units unknown) (unknown) (unknown) (no date) (unknown) (unknown) [id number] (units unknown) (unknown) (unknown) (no date) (unknown) (unknown) 05:00 (units unknown) (unknown) (unknown) (no date) (unknown) (unknown) 02/09/23 02/10/23 02/10/23 (units unknown) (unknown) (unknown) (no date) (unknown) (unknown) 02/10/23 05:00 (units unknown) (unknown) (unknown) (no date) (unknown) (unknown) 02/10/23 1434 (units unknown) (unknown) (unknown) (no date) (unknown) (unknown) 02/10/23 (units unknown) (unknown) (unknown) (no date) (unknown) (unknown) 08:00 02/10/23 (units unknown) (unknown) (unknown) (no date) (unknown) (unknown) 08:20 02/10/23 (units unknown) (unknown) (unknown) (no date) (unknown) (unknown) 08:40 (units unknown) (unknown) (unknown) (no date) (unknown) (unknown) 11:57 02/10/23 (units unknown) (unknown) (unknown) (no date) (unknown) (unknown) 12:03 (units unknown) (unknown) (unknown) (no date) (unknown) (unknown) 12:04 02/10/23 (units unknown) (unknown) (unknown) (no date) (unknown) (unknown) 12:06 02/10/23 (units unknown) (unknown) (unknown) (no date) (unknown) (unknown) 12:31 (units unknown) (unknown) (unknown) (no date) (unknown) (unknown) 13:55 (units unknown) (unknown) (unknown) (no date) (unknown) (unknown) 21:05 05:00 05:00 (units unknown) (unknown) (unknown) (no date) (unknown) (unknown) 2U PRBC but had pulled out IV lines. He then refused transfusion this morning (units unknown) (unknown) (unknown) (no date) (unknown) (unknown) Abdomen: S NT ND (units unknown) (unknown) (unknown) (no date) (unknown) (unknown) Age/Sex: 77 / M (units unknown) (unknown) (unknown) (no date) (unknown) (unknown) Alzheimer's dementia (units unknown) (unknown) (unknown) (no date) (unknown) (unknown) Anisocytosis 1+ H (units unknown) (unknown) (unknown) (no date) (unknown) (unknown) Anisocytosis (units unknown) (unknown) (unknown) (no date) (unknown) (unknown) Antibody Screen Negative (units unknown) (unknown) (unknown) (no date) (unknown) (unknown) Antibody Screen (units unknown) (unknown) (unknown) (no date) (unknown) (unknown) Anxiety (units unknown) (unknown) (unknown) (no date) (unknown) (unknown) Assessment + Plan narrative: (units unknown) (unknown) (unknown) (no date) (unknown) (unknown) Assessment + Plan (units unknown) (unknown) (unknown) (no date) (unknown) (unknown) BUN 21 H (units unknown) (unknown) (unknown) (no date) (unknown) (unknown) BUN (units unknown) (unknown) (unknown) (no date) (unknown) (unknown) BUN/Creatinine Ratio 25.3 H (units unknown) (unknown) (unknown) (no date) (unknown) (unknown) BUN/Creatinine Ratio (units unknown) (unknown) (unknown) (no date) (unknown) (unknown) Baso # (Auto) 0 (units unknown) (unknown) (unknown) (no date) (unknown) (unknown) Baso # (Auto) (units unknown) (unknown) (unknown) (no date) (unknown) (unknown) Baso % (Auto) 0.1 (units unknown) (unknown) (unknown) (no date) (unknown) (unknown) Baso % (Auto) (units unknown) (unknown) (unknown) (no date) (unknown) (unknown) Blood Pressure 93/52 L 93/52 L 89/62 L (units unknown) (unknown) (unknown) (no date) (unknown) (unknown) Blood Pressure 94/53 L 94/53 L 105/60 (units unknown) (unknown) (unknown) (no date) (unknown) (unknown) Blood Pressure 94/53 L 94/53 L (units unknown) (unknown) (unknown) (no date) (unknown) (unknown) Blood Pressure 98/42 L (units unknown) (unknown) (unknown) (no date) (unknown) (unknown) Blood Type B Positive (units unknown) (unknown) (unknown) (no date) (unknown) (unknown) Blood Type (units unknown) (unknown) (unknown) (no date) (unknown) (unknown) Calcium 7.2 L (units unknown) (unknown) (unknown) (no date) (unknown) (unknown) Calcium (units unknown) (unknown) (unknown) (no date) (unknown) (unknown) Carbon Dioxide 29 (units unknown) (unknown) (unknown) (no date) (unknown) (unknown) Carbon Dioxide (units unknown) (unknown) (unknown) (no date) (unknown) (unknown) Cardio: regular rate and rhythm without murmur, rubs, or gallops, no carotid (units unknown) (unknown) (unknown) (no date) (unknown) (unknown) Chest pain (units unknown) (unknown) (unknown) (no date) (unknown) (unknown) Chest: Normal AP diameter and contour without kyphoscoliosis, Equal chest rise (units unknown) (unknown) (unknown) (no date) (unknown) (unknown) Chloride 105 (units unknown) (unknown) (unknown) (no date) (unknown) (unknown) Chloride (units unknown) (unknown) (unknown) (no date) (unknown) (unknown) Code status:Full as discussed with patient and POA at bedside today. (units unknown) (unknown) (unknown) (no date) (unknown) (unknown) Creatinine 0.83 (units unknown) (unknown) (unknown) (no date) (unknown) (unknown) Creatinine (units unknown) (unknown) (unknown) (no date) (unknown) (unknown) Crossmatch See Detail (units unknown) (unknown) (unknown) (no date) (unknown) (unknown) Crossmatch (units unknown) (unknown) (unknown) (no date) (unknown) (unknown) : 1945 Acct:[id number] (units unknown) (unknown) (unknown) (no date) (unknown) (unknown) DVT/VTE prophylaxis: Holding medication due to surgery, right SCD only (units unknown) (unknown) (unknown) (no date) (unknown) (unknown) Date of Service: 02/08/23 (units unknown) (unknown) (unknown) (no date) (unknown) (unknown) Deep Vein Thrombosis/Pulmonary Embolism Present on Admission: No (units unknown) (unknown) (unknown) (no date) (unknown) (unknown) Depression (units unknown) (unknown) (unknown) (no date) (unknown) (unknown) Disposition: Patient admitted to acute care for left femur fracture repair, (units unknown) (unknown) (unknown) (no date) (unknown) (unknown) Easy bruisability (units unknown) (unknown) (unknown) (no date) (unknown) (unknown) Eos # (Auto) 0 (units unknown) (unknown) (unknown) (no date) (unknown) (unknown) Eos # (Auto) (units unknown) (unknown) (unknown) (no date) (unknown) (unknown) Eos % (Auto) 0.4 L (units unknown) (unknown) (unknown) (no date) (unknown) (unknown) Eos % (Auto) (units unknown) (unknown) (unknown) (no date) (unknown) (unknown) Epilepsy (units unknown) (unknown) (unknown) (no date) (unknown) (unknown) Estimated GFR > 60 (units unknown) (unknown) (unknown) (no date) (unknown) (unknown) Estimated GFR (units unknown) (unknown) (unknown) (no date) (unknown) (unknown) Exam Narrative: (units unknown) (unknown) (unknown) (no date) (unknown) (unknown) Exam (units unknown) (unknown) (unknown) (no date) (unknown) (unknown) Fraction of Inspired Oxygen 24 (units unknown) (unknown) (unknown) (no date) (unknown) (unknown) GERD, HTN who resides at a facility on [facility], was brought into the ED (units unknown) (unknown) (unknown) (no date) (unknown) (unknown) General: Patient is a elderly gentleman, in n oacute distress (units unknown) (unknown) (unknown) (no date) (unknown) (unknown) Glucose 105 (units unknown) (unknown) (unknown) (no date) (unknown) (unknown) Glucose (units unknown) (unknown) (unknown) (no date) (unknown) (unknown) HEENT: Normocephalic, atraumatic,MMM (units unknown) (unknown) (unknown) (no date) (unknown) (unknown) Hct 21.0 L 18.3 L* (units unknown) (unknown) (unknown) (no date) (unknown) (unknown) Hct (units unknown) (unknown) (unknown) (no date) (unknown) (unknown) Heart burn (units unknown) (unknown) (unknown) (no date) (unknown) (unknown) Hgb 7.1 L 6.3 L* (units unknown) (unknown) (unknown) (no date) (unknown) (unknown) Hgb (units unknown) (unknown) (unknown) (no date) (unknown) (unknown) Interval history: (units unknown) (unknown) (unknown) (no date) (unknown) (unknown) [address] [address] (units unknown) (unknown) (unknown) (no date) (unknown) (unknown) Laboratory Results - last 24 hr (units unknown) (unknown) (unknown) (no date) (unknown) (unknown) Labs (units unknown) (unknown) (unknown) (no date) (unknown) (unknown) Labs: (units unknown) (unknown) (unknown) (no date) (unknown) (unknown) Donna Garcia is a 77-year-old male with a past medical history of seizure (units unknown) (unknown) (unknown) (no date) (unknown) (unknown) Lungs: Auscultation of all lung arce are clear without adventitious sounds, (units unknown) (unknown) (unknown) (no date) (unknown) (unknown) Lymph # (Auto) 1700 (units unknown) (unknown) (unknown) (no date) (unknown) (unknown) Lymph # (Auto) (units unknown) (unknown) (unknown) (no date) (unknown) (unknown) Lymph % (Auto) 23.1 L (units unknown) (unknown) (unknown) (no date) (unknown) (unknown) Lymph % (Auto) (units unknown) (unknown) (unknown) (no date) (unknown) (unknown) MCH 33.9 (units unknown) (unknown) (unknown) (no date) (unknown) (unknown) MCH (units unknown) (unknown) (unknown) (no date) (unknown) (unknown) MCHC 34.4 (units unknown) (unknown) (unknown) (no date) (unknown) (unknown) MCHC (units unknown) (unknown) (unknown) (no date) (unknown) (unknown) MCV 98.6 (units unknown) (unknown) (unknown) (no date) (unknown) (unknown) MCV (units unknown) (unknown) (unknown) (no date) (unknown) (unknown) Medical History (units unknown) (unknown) (unknown) (no date) (unknown) (unknown) Aurora # (Auto) 800 (units unknown) (unknown) (unknown) (no date) (unknown) (unknown) Aurora # (Auto) (units unknown) (unknown) (unknown) (no date) (unknown) (unknown) [place] % (Auto) 11.0 (units unknown) (unknown) (unknown) (no date) (unknown) (unknown) [place] % (Auto) (units unknown) (unknown) (unknown) (no date) (unknown) (unknown) Musculoskeletal: Significant muscle wasting throughout (units unknown) (unknown) (unknown) (no date) (unknown) (unknown) Narrative (units unknown) (unknown) (unknown) (no date) (unknown) (unknown) Neck pain (units unknown) (unknown) (unknown) (no date) (unknown) (unknown) Neuro: Alert and orientated to self. sensation to touch intact, no gross (units unknown) (unknown) (unknown) (no date) (unknown) (unknown) Neut # (Auto) 4700 (units unknown) (unknown) (unknown) (no date) (unknown) (unknown) Neut # (Auto) (units unknown) (unknown) (unknown) (no date) (unknown) (unknown) Neut % (Auto) 65.4 D (units unknown) (unknown) (unknown) (no date) (unknown) (unknown) Neut % (Auto) (units unknown) (unknown) (unknown) (no date) (unknown) (unknown) No history of previous surgery (units unknown) (unknown) (unknown) (no date) (unknown) (unknown) Numbness and tingling (units unknown) (unknown) (unknown) (no date) (unknown) (unknown) Objective (units unknown) (unknown) (unknown) (no date) (unknown) (unknown) Osteoarthritis (units unknown) (unknown) (unknown) (no date) (unknown) (unknown) Oxygen Delivery Method Nasal Cannula (units unknown) (unknown) (unknown) (no date) (unknown) (unknown) Oxygen Delivery Method (units unknown) (unknown) (unknown) (no date) (unknown) (unknown) Oxygen Flow Rate 2 (units unknown) (unknown) (unknown) (no date) (unknown) (unknown) Oxygen Flow Rate (units unknown) (unknown) (unknown) (no date) (unknown) (unknown) PFSH (units unknown) (unknown) (unknown) (no date) (unknown) (unknown) Pain (units unknown) (unknown) (unknown) (no date) (unknown) (unknown) Patient with worsening anemia overnight. Hg to 6 this morning. Was ordered for (units unknown) (unknown) (unknown) (no date) (unknown) (unknown) Patient: Donna Garcia MR#: [id number] (units unknown) (unknown) (unknown) (no date) (unknown) (unknown) Plt Count 152 (units unknown) (unknown) (unknown) (no date) (unknown) (unknown) Plt Count (units unknown) (unknown) (unknown) (no date) (unknown) (unknown) Potassium 3.9 (units unknown) (unknown) (unknown) (no date) (unknown) (unknown) Potassium (units unknown) (unknown) (unknown) (no date) (unknown) (unknown) Progress Note (units unknown) (unknown) (unknown) (no date) (unknown) (unknown) Provider: Abdoul Parra D.O. (units unknown) (unknown) (unknown) (no date) (unknown) (unknown) Psych: Patient is pleasant, able to follow commands. (units unknown) (unknown) (unknown) (no date) (unknown) (unknown) Pulse Oximetry 97 (units unknown) (unknown) (unknown) (no date) (unknown) (unknown) Pulse Oximetry 99 (units unknown) (unknown) (unknown) (no date) (unknown) (unknown) Pulse Oximetry (units unknown) (unknown) (unknown) (no date) (unknown) (unknown) Pulse Rate 84 84 92 H (units unknown) (unknown) (unknown) (no date) (unknown) (unknown) Pulse Rate 84 84 (units unknown) (unknown) (unknown) (no date) (unknown) (unknown) Pulse Rate 87 (units unknown) (unknown) (unknown) (no date) (unknown) (unknown) Pulse Rate 96 H 95 H 96 H (units unknown) (unknown) (unknown) (no date) (unknown) (unknown) Quality (units unknown) (unknown) (unknown) (no date) (unknown) (unknown) RBBB (right bundle branch block) (units unknown) (unknown) (unknown) (no date) (unknown) (unknown) RBC 1.86 L (units unknown) (unknown) (unknown) (no date) (unknown) (unknown) RBC Morphology See below (units unknown) (unknown) (unknown) (no date) (unknown) (unknown) RBC Morphology (units unknown) (unknown) (unknown) (no date) (unknown) (unknown) RBC (units unknown) (unknown) (unknown) (no date) (unknown) (unknown) RDW 16.3 H (units unknown) (unknown) (unknown) (no date) (unknown) (unknown) RDW (units unknown) (unknown) (unknown) (no date) (unknown) (unknown) Respiratory Rate 16 16 16 (units unknown) (unknown) (unknown) (no date) (unknown) (unknown) Respiratory Rate 16 16 (units unknown) (unknown) (unknown) (no date) (unknown) (unknown) Respiratory Rate 17 17 17 (units unknown) (unknown) (unknown) (no date) (unknown) (unknown) Respiratory Rate 17 (units unknown) (unknown) (unknown) (no date) (unknown) (unknown) SaO2/FiO2 Ratio 400 (units unknown) (unknown) (unknown) (no date) (unknown) (unknown) Seizures (units unknown) (unknown) (unknown) (no date) (unknown) (unknown) Signed By:<Electronically signed by Abdoul Parra D.O.> (units unknown) (unknown) (unknown) (no date) (unknown) (unknown) Skin: Warm dry and intact without rashes, ulcerations or petechiae. (units unknown) (unknown) (unknown) (no date) (unknown) (unknown) Smoking Status: Smoker, status unknown (units unknown) (unknown) (unknown) (no date) (unknown) (unknown) Social History (units unknown) (unknown) (unknown) (no date) (unknown) (unknown) Sodium 136 L (units unknown) (unknown) (unknown) (no date) (unknown) (unknown) Sodium (units unknown) (unknown) (unknown) (no date) (unknown) (unknown) Subjective (units unknown) (unknown) (unknown) (no date) (unknown) (unknown) Surgical History (units unknown) (unknown) (unknown) (no date) (unknown) (unknown) Surrogate decision maker: Sister Vladimir leon (units unknown) (unknown) (unknown) (no date) (unknown) (unknown) TIA (transient ischemic attack) (units unknown) (unknown) (unknown) (no date) (unknown) (unknown) Temperature 98.1 F 98.1 F 99.5 F (units unknown) (unknown) (unknown) (no date) (unknown) (unknown) Temperature 99.1 F (units unknown) (unknown) (unknown) (no date) (unknown) (unknown) Temperature 99.4 F 99.4 F 99 F (units unknown) (unknown) (unknown) (no date) (unknown) (unknown) Temperature 99.4 F 99.4 F (units unknown) (unknown) (unknown) (no date) (unknown) (unknown) VTE (units unknown) (unknown) (unknown) (no date) (unknown) (unknown) Vital Signs (units unknown) (unknown) (unknown) (no date) (unknown) (unknown) WBC 7.2 (units unknown) (unknown) (unknown) (no date) (unknown) (unknown) WBC (units unknown) (unknown) (unknown) (no date) (unknown) (unknown) [Embedded Image Not Available] (units unknown) (unknown) (unknown) (no date) (unknown) (unknown) after rolling out of bed landing on the floor fracturing left femur. (units unknown) (unknown) (unknown) (no date) (unknown) (unknown) alcohol intake: current (units unknown) (unknown) (unknown) (no date) (unknown) (unknown) bleeding at this time. (units unknown) (unknown) (unknown) (no date) (unknown) (unknown) bruit, no cardiac pulsations present. (units unknown) (unknown) (unknown) (no date) (unknown) (unknown) care at this time. He seems to be improving after the transfusion today. He has (units unknown) (unknown) (unknown) (no date) (unknown) (unknown) close to 5L of fluids this admission so may be in part dilutional. There is no (units unknown) (unknown) (unknown) (no date) (unknown) (unknown) continue full care, though he has notable dementia and changes his mind (units unknown) (unknown) (unknown) (no date) (unknown) (unknown) current status post surgically and the plan of care. Patient is wanting to (units unknown) (unknown) (unknown) (no date) (unknown) (unknown) deficits noted of cranial nerves. (units unknown) (unknown) (unknown) (no date) (unknown) (unknown) discomfort are making him more miserable and that he doesn't want to live with (units unknown) (unknown) (unknown) (no date) (unknown) (unknown) discomfort like this.Patient and POA were in agreement to work on pain control, (units unknown) (unknown) (unknown) (no date) (unknown) (unknown) disorder, history of TIA, RTBBB Alzheimer's dementia, HDL, iron-deficiency, (units unknown) (unknown) (unknown) (no date) (unknown) (unknown) expected length of stay to exceed 2 midnights. Will likely return to snf (units unknown) (unknown) (unknown) (no date) (unknown) (unknown) frequently at the moment, however I was able to deduce that his current pain and (units unknown) (unknown) (unknown) (no date) (unknown) (unknown) had no obvious melena, and compartments are soft, cannot identify the source of (units unknown) (unknown) (unknown) (no date) (unknown) (unknown) household members: family (units unknown) (unknown) (unknown) (no date) (unknown) (unknown) improved he would want full care. (units unknown) (unknown) (unknown) (no date) (unknown) (unknown) including discussion with the patient and POA at bedside. Updating all on his (units unknown) (unknown) (unknown) (no date) (unknown) (unknown) morning he was agreeable, but also removed his IV line during the transfusion. I (units unknown) (unknown) (unknown) (no date) (unknown) (unknown) obvious GI bleeding or bruising on exam, dressing is dry. (units unknown) (unknown) (unknown) (no date) (unknown) (unknown) possible hematoma given difficult pain control. (units unknown) (unknown) (unknown) (no date) (unknown) (unknown) possibly readdress code status but he seemed quite clear that if his pain is (units unknown) (unknown) (unknown) (no date) (unknown) (unknown) present on admission (units unknown) (unknown) (unknown) (no date) (unknown) (unknown) saying he wanted to be 'done' with everything. When I spoke with him in the (units unknown) (unknown) (unknown) (no date) (unknown) (unknown) spoke with the patient and POA at bedside, and he does wish to continue full (units unknown) (unknown) (unknown) (no date) (unknown) (unknown) tomorrow if medically stable. (units unknown) (unknown) (unknown) (no date) (unknown) (unknown) wheezes, rhonchi, or rales. (units unknown) (unknown) (unknown) (no date) (unknown) (unknown) without nasal flaring, retractions, tachypneic or labored breathing. (units unknown) (unknown) Result panel 165 (unknown) (no date) (unknown) (unknown) (no value) (units unknown) (unknown) (unknown) (no date) (unknown) (unknown) NO GROWTH AFTER 24 HOURS (units unknown) (unknown) Result panel 166 (unknown) (no date) (unknown) (unknown) 26.5 % (unknown) (unknown) (no date) (unknown) (unknown) 26.5 % (unknown) (unknown) (no date) (unknown) (unknown) 9.2 g/dl (unknown) Result panel 167 (unknown) (no date) (unknown) (unknown) (no value) (units unknown) (unknown) (unknown) (no date) (unknown) (unknown) NO GROWTH AFTER 24 HOURS (units unknown) (unknown) Result panel 168 (unknown) (no date) (unknown) (unknown) > 60 ml/min (unknown) (unknown) (no date) (unknown) (unknown) > 60 ml/min (unknown) (unknown) (no date) (unknown) (unknown) 0.68 mg/dl (unknown) (unknown) (no date) (unknown) (unknown) 101 mmol/l (unknown) (unknown) (no date) (unknown) (unknown) 134 mmol/l (unknown) (unknown) (no date) (unknown) (unknown) 16 mg/dl (unknown) (unknown) (no date) (unknown) (unknown) 23.5 (units unknown) (unknown) (unknown) (no date) (unknown) (unknown) 3.8 mmol/l (unknown) (unknown) (no date) (unknown) (unknown) 30 mmol/l (unknown) (unknown) (no date) (unknown) (unknown) 8.1 mg/dl (unknown) (unknown) (no date) (unknown) (unknown) 96 mg/dl (unknown) (unknown) (no date) (unknown) (unknown) 96 mg/dl (unknown) Result panel 169 (unknown) (no date) (unknown) (unknown) 0.8 % (unknown) (unknown) (no date) (unknown) (unknown) 1.4 % (unknown) (unknown) (no date) (unknown) (unknown) 10.5 x10 3/ul (unknown) (unknown) (no date) (unknown) (unknown) 10.7 % (unknown) (unknown) (no date) (unknown) (unknown) 10.8 g/dl (unknown) (unknown) (no date) (unknown) (unknown) 100 /ul (unknown) (unknown) (no date) (unknown) (unknown) 1100 /ul (unknown) (unknown) (no date) (unknown) (unknown) 16.0 % (unknown) (unknown) (no date) (unknown) (unknown) 1700 /ul (unknown) (unknown) (no date) (unknown) (unknown) 18.4 % (unknown) (unknown) (no date) (unknown) (unknown) 195 x10 3/ul (unknown) (unknown) (no date) (unknown) (unknown) 200 /ul (unknown) (unknown) (no date) (unknown) (unknown) 3.30 x10 6/ul (unknown) (unknown) (no date) (unknown) (unknown) 31.9 % (unknown) (unknown) (no date) (unknown) (unknown) 32.7 pg (unknown) (unknown) (no date) (unknown) (unknown) 33.8 % (unknown) (unknown) (no date) (unknown) (unknown) 71.1 % (unknown) (unknown) (no date) (unknown) (unknown) 7500 /ul (unknown) (unknown) (no date) (unknown) (unknown) 96.7 fl (unknown) Result panel 170 (unknown) (no date) (unknown) (unknown) (no value) (units unknown) (unknown) (unknown) (no date) (unknown) (unknown) (past 8 hours): (units unknown) (unknown) (unknown) (no date) (unknown) (unknown) [id number] (units unknown) (unknown) (unknown) (no date) (unknown) (unknown) 04:45 02/11/23 (units unknown) (unknown) (unknown) (no date) (unknown) (unknown) 05:00 21:14 06:30 (units unknown) (unknown) (unknown) (no date) (unknown) (unknown) 02/10/23 02/10/23 02/11/23 (units unknown) (unknown) (unknown) (no date) (unknown) (unknown) 02/11/23 06:30 (units unknown) (unknown) (unknown) (no date) (unknown) (unknown) 02/11/23 (units unknown) (unknown) (unknown) (no date) (unknown) (unknown) 06:30 (units unknown) (unknown) (unknown) (no date) (unknown) (unknown) 07:52 (units unknown) (unknown) (unknown) (no date) (unknown) (unknown) Actual Procedure Side Surgeon (units unknown) (unknown) (unknown) (no date) (unknown) (unknown) Age/Sex: 77 / M (units unknown) (unknown) (unknown) (no date) (unknown) (unknown) Alzheimer's dementia (units unknown) (unknown) (unknown) (no date) (unknown) (unknown) Antibody Screen Negative (units unknown) (unknown) (unknown) (no date) (unknown) (unknown) Antibody Screen (units unknown) (unknown) (unknown) (no date) (unknown) (unknown) Anxiety (units unknown) (unknown) (unknown) (no date) (unknown) (unknown) Assessment + Plan Post-op (units unknown) (unknown) (unknown) (no date) (unknown) (unknown) BUN 16 (units unknown) (unknown) (unknown) (no date) (unknown) (unknown) BUN (units unknown) (unknown) (unknown) (no date) (unknown) (unknown) BUN/Creatinine Ratio 23.5 H (units unknown) (unknown) (unknown) (no date) (unknown) (unknown) BUN/Creatinine Ratio (units unknown) (unknown) (unknown) (no date) (unknown) (unknown) Baso # (Auto) 100 (units unknown) (unknown) (unknown) (no date) (unknown) (unknown) Baso # (Auto) (units unknown) (unknown) (unknown) (no date) (unknown) (unknown) Baso % (Auto) 0.8 (units unknown) (unknown) (unknown) (no date) (unknown) (unknown) Baso % (Auto) (units unknown) (unknown) (unknown) (no date) (unknown) (unknown) Blood Pressure 131/62 (units unknown) (unknown) (unknown) (no date) (unknown) (unknown) Blood Type B Positive (units unknown) (unknown) (unknown) (no date) (unknown) (unknown) Blood Type (units unknown) (unknown) (unknown) (no date) (unknown) (unknown) Calcium 8.1 L (units unknown) (unknown) (unknown) (no date) (unknown) (unknown) Calcium (units unknown) (unknown) (unknown) (no date) (unknown) (unknown) Carbon Dioxide 30 (units unknown) (unknown) (unknown) (no date) (unknown) (unknown) Carbon Dioxide (units unknown) (unknown) (unknown) (no date) (unknown) (unknown) Chest pain (units unknown) (unknown) (unknown) (no date) (unknown) (unknown) Chloride 101 (units unknown) (unknown) (unknown) (no date) (unknown) (unknown) Chloride (units unknown) (unknown) (unknown) (no date) (unknown) (unknown) Creatinine 0.68 (units unknown) (unknown) (unknown) (no date) (unknown) (unknown) Creatinine (units unknown) (unknown) (unknown) (no date) (unknown) (unknown) Crossmatch See Detail (units unknown) (unknown) (unknown) (no date) (unknown) (unknown) Crossmatch (units unknown) (unknown) (unknown) (no date) (unknown) (unknown) : 1945 Acct:[id number] (units unknown) (unknown) (unknown) (no date) (unknown) (unknown) Date Patient Seen: 02/11/23 (units unknown) (unknown) (unknown) (no date) (unknown) (unknown) Date of Service: 02/08/23 (units unknown) (unknown) (unknown) (no date) (unknown) (unknown) Deep Vein Thrombosis/Pulmonary Embolism Present on Admission: No (units unknown) (unknown) (unknown) (no date) (unknown) (unknown) Depression (units unknown) (unknown) (unknown) (no date) (unknown) (unknown) Easy bruisability (units unknown) (unknown) (unknown) (no date) (unknown) (unknown) Eos # (Auto) 200 (units unknown) (unknown) (unknown) (no date) (unknown) (unknown) Eos # (Auto) (units unknown) (unknown) (unknown) (no date) (unknown) (unknown) Eos % (Auto) 1.4 L (units unknown) (unknown) (unknown) (no date) (unknown) (unknown) Eos % (Auto) (units unknown) (unknown) (unknown) (no date) (unknown) (unknown) Epilepsy (units unknown) (unknown) (unknown) (no date) (unknown) (unknown) Estimated GFR > 60 (units unknown) (unknown) (unknown) (no date) (unknown) (unknown) Estimated GFR (units unknown) (unknown) (unknown) (no date) (unknown) (unknown) Exam Narrative: (units unknown) (unknown) (unknown) (no date) (unknown) (unknown) Exam (units unknown) (unknown) (unknown) (no date) (unknown) (unknown) Fraction of Inspired Oxygen 24 (units unknown) (unknown) (unknown) (no date) (unknown) (unknown) Glucose 96 (units unknown) (unknown) (unknown) (no date) (unknown) (unknown) Glucose (units unknown) (unknown) (unknown) (no date) (unknown) (unknown) Hct 26.5 L 31.9 L (units unknown) (unknown) (unknown) (no date) (unknown) (unknown) Hct (units unknown) (unknown) (unknown) (no date) (unknown) (unknown) Heart burn (units unknown) (unknown) (unknown) (no date) (unknown) (unknown) Hgb 9.2 L 10.8 L (units unknown) (unknown) (unknown) (no date) (unknown) (unknown) Hgb (units unknown) (unknown) (unknown) (no date) (unknown) (unknown) Interval history: (units unknown) (unknown) (unknown) (no date) (unknown) (unknown) Intraoperative aquacel grossly clean, dry, and intact with only dime sized spot (units unknown) (unknown) (unknown) (no date) (unknown) (unknown) [address] [address] (units unknown) (unknown) (unknown) (no date) (unknown) (unknown) Laboratory Results - last 24 hr (units unknown) (unknown) (unknown) (no date) (unknown) (unknown) Labs (units unknown) (unknown) (unknown) (no date) (unknown) (unknown) Labs: (units unknown) (unknown) (unknown) (no date) (unknown) (unknown) Lymph # (Auto) 1700 (units unknown) (unknown) (unknown) (no date) (unknown) (unknown) Lymph # (Auto) (units unknown) (unknown) (unknown) (no date) (unknown) (unknown) Lymph % (Auto) 16.0 L (units unknown) (unknown) (unknown) (no date) (unknown) (unknown) Lymph % (Auto) (units unknown) (unknown) (unknown) (no date) (unknown) (unknown) MCH 32.7 (units unknown) (unknown) (unknown) (no date) (unknown) (unknown) MCH (units unknown) (unknown) (unknown) (no date) (unknown) (unknown) MCHC 33.8 (units unknown) (unknown) (unknown) (no date) (unknown) (unknown) MCHC (units unknown) (unknown) (unknown) (no date) (unknown) (unknown) MCV 96.7 (units unknown) (unknown) (unknown) (no date) (unknown) (unknown) MCV (units unknown) (unknown) (unknown) (no date) (unknown) (unknown) Medical History (units unknown) (unknown) (unknown) (no date) (unknown) (unknown) [place] # (Auto) 1100 H (units unknown) (unknown) (unknown) (no date) (unknown) (unknown) [place] # (Auto) (units unknown) (unknown) (unknown) (no date) (unknown) (unknown) [place] % (Auto) 10.7 (units unknown) (unknown) (unknown) (no date) (unknown) (unknown) [place] % (Auto) (units unknown) (unknown) (unknown) (no date) (unknown) (unknown) Narrative (units unknown) (unknown) (unknown) (no date) (unknown) (unknown) Neck pain (units unknown) (unknown) (unknown) (no date) (unknown) (unknown) Neut # (Auto) 7500 H (units unknown) (unknown) (unknown) (no date) (unknown) (unknown) Neut # (Auto) (units unknown) (unknown) (unknown) (no date) (unknown) (unknown) Neut % (Auto) 71.1 (units unknown) (unknown) (unknown) (no date) (unknown) (unknown) Neut % (Auto) (units unknown) (unknown) (unknown) (no date) (unknown) (unknown) No history of previous surgery (units unknown) (unknown) (unknown) (no date) (unknown) (unknown) Numbness and tingling (units unknown) (unknown) (unknown) (no date) (unknown) (unknown) Objective (units unknown) (unknown) (unknown) (no date) (unknown) (unknown) Operation Date: 02/08/23 14:00 (units unknown) (unknown) (unknown) (no date) (unknown) (unknown) Osteoarthritis (units unknown) (unknown) (unknown) (no date) (unknown) (unknown) Oxygen Delivery Method Nasal Cannula (units unknown) (unknown) (unknown) (no date) (unknown) (unknown) Oxygen Flow Rate 2 2 (units unknown) (unknown) (unknown) (no date) (unknown) (unknown) Oxygen Flow Rate 2 (units unknown) (unknown) (unknown) (no date) (unknown) (unknown) PFSH (units unknown) (unknown) (unknown) (no date) (unknown) (unknown) Pain (units unknown) (unknown) (unknown) (no date) (unknown) (unknown) Patient is somnolent lying in bed this morning, not easily arousable by voice or (units unknown) (unknown) (unknown) (no date) (unknown) (unknown) Patient: Donna Garcia MR#: [id number] (units unknown) (unknown) (unknown) (no date) (unknown) (unknown) Plt Count 195 (units unknown) (unknown) (unknown) (no date) (unknown) (unknown) Plt Count (units unknown) (unknown) (unknown) (no date) (unknown) (unknown) Postoperative day: 3 (units unknown) (unknown) (unknown) (no date) (unknown) (unknown) Postoperative (units unknown) (unknown) (unknown) (no date) (unknown) (unknown) Potassium 3.8 (units unknown) (unknown) (unknown) (no date) (unknown) (unknown) Potassium (units unknown) (unknown) (unknown) (no date) (unknown) (unknown) Procedures (units unknown) (unknown) (unknown) (no date) (unknown) (unknown) Procedures: (units unknown) (unknown) (unknown) (no date) (unknown) (unknown) Progress Note (units unknown) (unknown) (unknown) (no date) (unknown) (unknown) Provider: Erendira Long P.A-C (units unknown) (unknown) (unknown) (no date) (unknown) (unknown) Pulse Oximetry 93 98 (units unknown) (unknown) (unknown) (no date) (unknown) (unknown) Pulse Rate 86 (units unknown) (unknown) (unknown) (no date) (unknown) (unknown) Quality (units unknown) (unknown) (unknown) (no date) (unknown) (unknown) RBBB (right bundle branch block) (units unknown) (unknown) (unknown) (no date) (unknown) (unknown) RBC 3.30 L (units unknown) (unknown) (unknown) (no date) (unknown) (unknown) RBC (units unknown) (unknown) (unknown) (no date) (unknown) (unknown) RDW 18.4 H (units unknown) (unknown) (unknown) (no date) (unknown) (unknown) RDW (units unknown) (unknown) (unknown) (no date) (unknown) (unknown) Respiratory Rate 20 (units unknown) (unknown) (unknown) (no date) (unknown) (unknown) SaO2/FiO2 Ratio 400 (units unknown) (unknown) (unknown) (no date) (unknown) (unknown) Seizures (units unknown) (unknown) (unknown) (no date) (unknown) (unknown) Signed By: (units unknown) (unknown) (unknown) (no date) (unknown) (unknown) Smoking Status: Smoker, status unknown (units unknown) (unknown) (unknown) (no date) (unknown) (unknown) Social History (units unknown) (unknown) (unknown) (no date) (unknown) (unknown) Sodium 134 L (units unknown) (unknown) (unknown) (no date) (unknown) (unknown) Sodium (units unknown) (unknown) (unknown) (no date) (unknown) (unknown) Somnolent, unarousable. Unable to complete thorough physical exam as patient (units unknown) (unknown) (unknown) (no date) (unknown) (unknown) Subjective (units unknown) (unknown) (unknown) (no date) (unknown) (unknown) Surgical History (units unknown) (unknown) (unknown) (no date) (unknown) (unknown) TIA (transient ischemic attack) (units unknown) (unknown) (unknown) (no date) (unknown) (unknown) Temperature 98.9 F (units unknown) (unknown) (unknown) (no date) (unknown) (unknown) Time Patient Seen: 08:00 (units unknown) (unknown) (unknown) (no date) (unknown) (unknown) VTE (units unknown) (unknown) (unknown) (no date) (unknown) (unknown) Vital Signs (units unknown) (unknown) (unknown) (no date) (unknown) (unknown) WBC 10.5 (units unknown) (unknown) (unknown) (no date) (unknown) (unknown) WBC (units unknown) (unknown) (unknown) (no date) (unknown) (unknown) [Embedded Image Not Available] (units unknown) (unknown) (unknown) (no date) (unknown) (unknown) alcohol intake: current (units unknown) (unknown) (unknown) (no date) (unknown) (unknown) cannot follow commands at this time. Left hip tender to light palpation. (units unknown) (unknown) (unknown) (no date) (unknown) (unknown) household members: family (units unknown) (unknown) (unknown) (no date) (unknown) (unknown) of blood proximally. Calves soft and compressible bilaterally. (units unknown) (unknown) (unknown) (no date) (unknown) (unknown) p Hip Hemiarthroplasty Amari Mariaa Soares MD (units unknown) (unknown) (unknown) (no date) (unknown) (unknown) to state he has pain to the operative hip. (units unknown) (unknown) (unknown) (no date) (unknown) (unknown) touch. Will not follow voice commands to complete physical exam. Briefly wakes (units unknown) (unknown) Result panel 171 (unknown) (no date) (unknown) (unknown) (no value) (units unknown) (unknown) (unknown) (no date) (unknown) (unknown) (past 8 hours): (units unknown) (unknown) (unknown) (no date) (unknown) (unknown) [id number] (units unknown) (unknown) (unknown) (no date) (unknown) (unknown) 04:45 02/11/23 (units unknown) (unknown) (unknown) (no date) (unknown) (unknown) 05:00 21:14 06:30 (units unknown) (unknown) (unknown) (no date) (unknown) (unknown) 02/10/23 02/10/23 02/11/23 (units unknown) (unknown) (unknown) (no date) (unknown) (unknown) 02/11/23 06:30 (units unknown) (unknown) (unknown) (no date) (unknown) (unknown) 02/11/23 (units unknown) (unknown) (unknown) (no date) (unknown) (unknown) 06:30 (units unknown) (unknown) (unknown) (no date) (unknown) (unknown) 07:52 (units unknown) (unknown) (unknown) (no date) (unknown) (unknown) Actual Procedure Side Surgeon (units unknown) (unknown) (unknown) (no date) (unknown) (unknown) Age/Sex: 77 / M (units unknown) (unknown) (unknown) (no date) (unknown) (unknown) Alzheimer's dementia (units unknown) (unknown) (unknown) (no date) (unknown) (unknown) Alzheimer's dementia, bed-bound status at baseline, postoperative anemia. His (units unknown) (unknown) (unknown) (no date) (unknown) (unknown) Antibody Screen Negative (units unknown) (unknown) (unknown) (no date) (unknown) (unknown) Antibody Screen (units unknown) (unknown) (unknown) (no date) (unknown) (unknown) Anxiety (units unknown) (unknown) (unknown) (no date) (unknown) (unknown) Assessment + Plan Post-op (units unknown) (unknown) (unknown) (no date) (unknown) (unknown) BUN 16 (units unknown) (unknown) (unknown) (no date) (unknown) (unknown) BUN (units unknown) (unknown) (unknown) (no date) (unknown) (unknown) BUN/Creatinine Ratio 23.5 H (units unknown) (unknown) (unknown) (no date) (unknown) (unknown) BUN/Creatinine Ratio (units unknown) (unknown) (unknown) (no date) (unknown) (unknown) Baso # (Auto) 100 (units unknown) (unknown) (unknown) (no date) (unknown) (unknown) Baso # (Auto) (units unknown) (unknown) (unknown) (no date) (unknown) (unknown) Baso % (Auto) 0.8 (units unknown) (unknown) (unknown) (no date) (unknown) (unknown) Baso % (Auto) (units unknown) (unknown) (unknown) (no date) (unknown) (unknown) Blood Pressure 131/62 (units unknown) (unknown) (unknown) (no date) (unknown) (unknown) Blood Type B Positive (units unknown) (unknown) (unknown) (no date) (unknown) (unknown) Blood Type (units unknown) (unknown) (unknown) (no date) (unknown) (unknown) Calcium 8.1 L (units unknown) (unknown) (unknown) (no date) (unknown) (unknown) Calcium (units unknown) (unknown) (unknown) (no date) (unknown) (unknown) Carbon Dioxide 30 (units unknown) (unknown) (unknown) (no date) (unknown) (unknown) Carbon Dioxide (units unknown) (unknown) (unknown) (no date) (unknown) (unknown) Chest pain (units unknown) (unknown) (unknown) (no date) (unknown) (unknown) Chloride 101 (units unknown) (unknown) (unknown) (no date) (unknown) (unknown) Chloride (units unknown) (unknown) (unknown) (no date) (unknown) (unknown) Creatinine 0.68 (units unknown) (unknown) (unknown) (no date) (unknown) (unknown) Creatinine (units unknown) (unknown) (unknown) (no date) (unknown) (unknown) Crossmatch See Detail (units unknown) (unknown) (unknown) (no date) (unknown) (unknown) Crossmatch (units unknown) (unknown) (unknown) (no date) (unknown) (unknown) : 1945 Acct:[id number] (units unknown) (unknown) (unknown) (no date) (unknown) (unknown) Date Patient Seen: 02/11/23 (units unknown) (unknown) (unknown) (no date) (unknown) (unknown) Date of Service: 02/08/23 (units unknown) (unknown) (unknown) (no date) (unknown) (unknown) Deep Vein Thrombosis/Pulmonary Embolism Present on Admission: No (units unknown) (unknown) (unknown) (no date) (unknown) (unknown) Depression (units unknown) (unknown) (unknown) (no date) (unknown) (unknown) Easy bruisability (units unknown) (unknown) (unknown) (no date) (unknown) (unknown) Eos # (Auto) 200 (units unknown) (unknown) (unknown) (no date) (unknown) (unknown) Eos # (Auto) (units unknown) (unknown) (unknown) (no date) (unknown) (unknown) Eos % (Auto) 1.4 L (units unknown) (unknown) (unknown) (no date) (unknown) (unknown) Eos % (Auto) (units unknown) (unknown) (unknown) (no date) (unknown) (unknown) Epilepsy (units unknown) (unknown) (unknown) (no date) (unknown) (unknown) Estimated GFR > 60 (units unknown) (unknown) (unknown) (no date) (unknown) (unknown) Estimated GFR (units unknown) (unknown) (unknown) (no date) (unknown) (unknown) Exam Narrative: (units unknown) (unknown) (unknown) (no date) (unknown) (unknown) Exam (units unknown) (unknown) (unknown) (no date) (unknown) (unknown) Fraction of Inspired Oxygen 24 (units unknown) (unknown) (unknown) (no date) (unknown) (unknown) Glucose 96 (units unknown) (unknown) (unknown) (no date) (unknown) (unknown) Glucose (units unknown) (unknown) (unknown) (no date) (unknown) (unknown) Hct 26.5 L 31.9 L (units unknown) (unknown) (unknown) (no date) (unknown) (unknown) Hct (units unknown) (unknown) (unknown) (no date) (unknown) (unknown) Heart burn (units unknown) (unknown) (unknown) (no date) (unknown) (unknown) Hgb 9.2 L 10.8 L (units unknown) (unknown) (unknown) (no date) (unknown) (unknown) Hgb (units unknown) (unknown) (unknown) (no date) (unknown) (unknown) Interval history: (units unknown) (unknown) (unknown) (no date) (unknown) (unknown) Intraoperative aquacel grossly clean, dry, and intact with only dime sized spot (units unknown) (unknown) (unknown) (no date) (unknown) (unknown) [address] [address] (units unknown) (unknown) (unknown) (no date) (unknown) (unknown) Laboratory Results - last 24 hr (units unknown) (unknown) (unknown) (no date) (unknown) (unknown) Labs (units unknown) (unknown) (unknown) (no date) (unknown) (unknown) Labs: (units unknown) (unknown) (unknown) (no date) (unknown) (unknown) Lymph # (Auto) 1700 (units unknown) (unknown) (unknown) (no date) (unknown) (unknown) Lymph # (Auto) (units unknown) (unknown) (unknown) (no date) (unknown) (unknown) Lymph % (Auto) 16.0 L (units unknown) (unknown) (unknown) (no date) (unknown) (unknown) Lymph % (Auto) (units unknown) (unknown) (unknown) (no date) (unknown) (unknown) MCH 32.7 (units unknown) (unknown) (unknown) (no date) (unknown) (unknown) MCH (units unknown) (unknown) (unknown) (no date) (unknown) (unknown) MCHC 33.8 (units unknown) (unknown) (unknown) (no date) (unknown) (unknown) MCHC (units unknown) (unknown) (unknown) (no date) (unknown) (unknown) MCV 96.7 (units unknown) (unknown) (unknown) (no date) (unknown) (unknown) MCV (units unknown) (unknown) (unknown) (no date) (unknown) (unknown) Medical History (units unknown) (unknown) (unknown) (no date) (unknown) (unknown) Aurora # (Auto) 1100 H (units unknown) (unknown) (unknown) (no date) (unknown) (unknown) [place] # (Auto) (units unknown) (unknown) (unknown) (no date) (unknown) (unknown) [place] % (Auto) 10.7 (units unknown) (unknown) (unknown) (no date) (unknown) (unknown) [place] % (Auto) (units unknown) (unknown) (unknown) (no date) (unknown) (unknown) Narrative (units unknown) (unknown) (unknown) (no date) (unknown) (unknown) Neck pain (units unknown) (unknown) (unknown) (no date) (unknown) (unknown) Neut # (Auto) 7500 H (units unknown) (unknown) (unknown) (no date) (unknown) (unknown) Neut # (Auto) (units unknown) (unknown) (unknown) (no date) (unknown) (unknown) Neut % (Auto) 71.1 (units unknown) (unknown) (unknown) (no date) (unknown) (unknown) Neut % (Auto) (units unknown) (unknown) (unknown) (no date) (unknown) (unknown) No history of previous surgery (units unknown) (unknown) (unknown) (no date) (unknown) (unknown) Numbness and tingling (units unknown) (unknown) (unknown) (no date) (unknown) (unknown) Objective (units unknown) (unknown) (unknown) (no date) (unknown) (unknown) Operation Date: 02/08/23 14:00 (units unknown) (unknown) (unknown) (no date) (unknown) (unknown) Osteoarthritis (units unknown) (unknown) (unknown) (no date) (unknown) (unknown) Oxygen Delivery Method Nasal Cannula (units unknown) (unknown) (unknown) (no date) (unknown) (unknown) Oxygen Flow Rate 2 2 (units unknown) (unknown) (unknown) (no date) (unknown) (unknown) Oxygen Flow Rate 2 (units unknown) (unknown) (unknown) (no date) (unknown) (unknown) PFSH (units unknown) (unknown) (unknown) (no date) (unknown) (unknown) Pain (units unknown) (unknown) (unknown) (no date) (unknown) (unknown) Patient is somnolent lying in bed this morning, not easily arousable by voice or (units unknown) (unknown) (unknown) (no date) (unknown) (unknown) Patient: Donna Garcia MR#: [id number] (units unknown) (unknown) (unknown) (no date) (unknown) (unknown) Plt Count 195 (units unknown) (unknown) (unknown) (no date) (unknown) (unknown) Plt Count (units unknown) (unknown) (unknown) (no date) (unknown) (unknown) Postoperative day: 3 (units unknown) (unknown) (unknown) (no date) (unknown) (unknown) Postoperative status narrative: Patient's postoperative course is complicated by (units unknown) (unknown) (unknown) (no date) (unknown) (unknown) Postoperative (units unknown) (unknown) (unknown) (no date) (unknown) (unknown) Potassium 3.8 (units unknown) (unknown) (unknown) (no date) (unknown) (unknown) Potassium (units unknown) (unknown) (unknown) (no date) (unknown) (unknown) Procedures (units unknown) (unknown) (unknown) (no date) (unknown) (unknown) Procedures: (units unknown) (unknown) (unknown) (no date) (unknown) (unknown) Progress Note (units unknown) (unknown) (unknown) (no date) (unknown) (unknown) Provider: Erendira Long P.A-C (units unknown) (unknown) (unknown) (no date) (unknown) (unknown) Pulse Oximetry 93 98 (units unknown) (unknown) (unknown) (no date) (unknown) (unknown) Pulse Rate 86 (units unknown) (unknown) (unknown) (no date) (unknown) (unknown) Quality (units unknown) (unknown) (unknown) (no date) (unknown) (unknown) RBBB (right bundle branch block) (units unknown) (unknown) (unknown) (no date) (unknown) (unknown) RBC 3.30 L (units unknown) (unknown) (unknown) (no date) (unknown) (unknown) RBC (units unknown) (unknown) (unknown) (no date) (unknown) (unknown) RDW 18.4 H (units unknown) (unknown) (unknown) (no date) (unknown) (unknown) RDW (units unknown) (unknown) (unknown) (no date) (unknown) (unknown) Respiratory Rate 20 (units unknown) (unknown) (unknown) (no date) (unknown) (unknown) SaO2/FiO2 Ratio 400 (units unknown) (unknown) (unknown) (no date) (unknown) (unknown) Seizures (units unknown) (unknown) (unknown) (no date) (unknown) (unknown) Signed By: (units unknown) (unknown) (unknown) (no date) (unknown) (unknown) Smoking Status: Smoker, status unknown (units unknown) (unknown) (unknown) (no date) (unknown) (unknown) Social History (units unknown) (unknown) (unknown) (no date) (unknown) (unknown) Sodium 134 L (units unknown) (unknown) (unknown) (no date) (unknown) (unknown) Sodium (units unknown) (unknown) (unknown) (no date) (unknown) (unknown) Somnolent, unarousable. Unable to complete thorough physical exam as patient (units unknown) (unknown) (unknown) (no date) (unknown) (unknown) Subjective (units unknown) (unknown) (unknown) (no date) (unknown) (unknown) Surgical History (units unknown) (unknown) (unknown) (no date) (unknown) (unknown) TIA (transient ischemic attack) (units unknown) (unknown) (unknown) (no date) (unknown) (unknown) Temperature 98.9 F (units unknown) (unknown) (unknown) (no date) (unknown) (unknown) Time Patient Seen: 08:00 (units unknown) (unknown) (unknown) (no date) (unknown) (unknown) VTE (units unknown) (unknown) (unknown) (no date) (unknown) (unknown) Vital Signs (units unknown) (unknown) (unknown) (no date) (unknown) (unknown) WBC 10.5 (units unknown) (unknown) (unknown) (no date) (unknown) (unknown) WBC (units unknown) (unknown) (unknown) (no date) (unknown) (unknown) [Embedded Image Not Available] (units unknown) (unknown) (unknown) (no date) (unknown) (unknown) alcohol intake: current (units unknown) (unknown) (unknown) (no date) (unknown) (unknown) cannot follow commands at this time. Left hip tender to light palpation. (units unknown) (unknown) (unknown) (no date) (unknown) (unknown) household members: family (units unknown) (unknown) (unknown) (no date) (unknown) (unknown) of blood proximally. Calves soft and compressible bilaterally. (units unknown) (unknown) (unknown) (no date) (unknown) (unknown) p Hip Hemiarthroplasty Amari Mariaa Soares MD (units unknown) (unknown) (unknown) (no date) (unknown) (unknown) pain has been well controlled. (units unknown) (unknown) (unknown) (no date) (unknown) (unknown) to state he has pain to the operative hip. (units unknown) (unknown) (unknown) (no date) (unknown) (unknown) touch. Will not follow voice commands to complete physical exam. Briefly wakes (units unknown) (unknown) Result panel 172 (unknown) (no date) (unknown) (unknown) (no value) (units unknown) (unknown) (unknown) (no date) (unknown) (unknown) (past 8 hours): (units unknown) (unknown) (unknown) (no date) (unknown) (unknown) [id number] (units unknown) (unknown) (unknown) (no date) (unknown) (unknown) 04:45 02/11/23 (units unknown) (unknown) (unknown) (no date) (unknown) (unknown) 05:00 21:14 06:30 (units unknown) (unknown) (unknown) (no date) (unknown) (unknown) 02/10/23 02/10/23 02/11/23 (units unknown) (unknown) (unknown) (no date) (unknown) (unknown) 02/11/23 06:30 (units unknown) (unknown) (unknown) (no date) (unknown) (unknown) 02/11/23 (units unknown) (unknown) (unknown) (no date) (unknown) (unknown) 06:30 (units unknown) (unknown) (unknown) (no date) (unknown) (unknown) 07:52 (units unknown) (unknown) (unknown) (no date) (unknown) (unknown) 40 mg subcutaneous for 4 weeks for DVT prophylaxis. Follow-up in 2 weeks for (units unknown) (unknown) (unknown) (no date) (unknown) (unknown) Abduction pillow while in bed. Posterior hip precautions for 6 weeks. Lovenox (units unknown) (unknown) (unknown) (no date) (unknown) (unknown) Actual Procedure Side Surgeon (units unknown) (unknown) (unknown) (no date) (unknown) (unknown) Age/Sex: 77 / M (units unknown) (unknown) (unknown) (no date) (unknown) (unknown) Alzheimer's dementia (units unknown) (unknown) (unknown) (no date) (unknown) (unknown) Alzheimer's dementia, bed-bound status at baseline, postoperative anemia. His (units unknown) (unknown) (unknown) (no date) (unknown) (unknown) Antibody Screen Negative (units unknown) (unknown) (unknown) (no date) (unknown) (unknown) Antibody Screen (units unknown) (unknown) (unknown) (no date) (unknown) (unknown) Anxiety (units unknown) (unknown) (unknown) (no date) (unknown) (unknown) Assessment + Plan Post-op (units unknown) (unknown) (unknown) (no date) (unknown) (unknown) BUN 16 (units unknown) (unknown) (unknown) (no date) (unknown) (unknown) BUN (units unknown) (unknown) (unknown) (no date) (unknown) (unknown) BUN/Creatinine Ratio 23.5 H (units unknown) (unknown) (unknown) (no date) (unknown) (unknown) BUN/Creatinine Ratio (units unknown) (unknown) (unknown) (no date) (unknown) (unknown) Baso # (Auto) 100 (units unknown) (unknown) (unknown) (no date) (unknown) (unknown) Baso # (Auto) (units unknown) (unknown) (unknown) (no date) (unknown) (unknown) Baso % (Auto) 0.8 (units unknown) (unknown) (unknown) (no date) (unknown) (unknown) Baso % (Auto) (units unknown) (unknown) (unknown) (no date) (unknown) (unknown) Blood Pressure 131/62 (units unknown) (unknown) (unknown) (no date) (unknown) (unknown) Blood Type B Positive (units unknown) (unknown) (unknown) (no date) (unknown) (unknown) Blood Type (units unknown) (unknown) (unknown) (no date) (unknown) (unknown) Calcium 8.1 L (units unknown) (unknown) (unknown) (no date) (unknown) (unknown) Calcium (units unknown) (unknown) (unknown) (no date) (unknown) (unknown) Carbon Dioxide 30 (units unknown) (unknown) (unknown) (no date) (unknown) (unknown) Carbon Dioxide (units unknown) (unknown) (unknown) (no date) (unknown) (unknown) Change as needed. (units unknown) (unknown) (unknown) (no date) (unknown) (unknown) Chest pain (units unknown) (unknown) (unknown) (no date) (unknown) (unknown) Chloride 101 (units unknown) (unknown) (unknown) (no date) (unknown) (unknown) Chloride (units unknown) (unknown) (unknown) (no date) (unknown) (unknown) Creatinine 0.68 (units unknown) (unknown) (unknown) (no date) (unknown) (unknown) Creatinine (units unknown) (unknown) (unknown) (no date) (unknown) (unknown) Crossmatch See Detail (units unknown) (unknown) (unknown) (no date) (unknown) (unknown) Crossmatch (units unknown) (unknown) (unknown) (no date) (unknown) (unknown) : 1945 Acct:[id number] (units unknown) (unknown) (unknown) (no date) (unknown) (unknown) Date Patient Seen: 02/11/23 (units unknown) (unknown) (unknown) (no date) (unknown) (unknown) Date of Service: 02/08/23 (units unknown) (unknown) (unknown) (no date) (unknown) (unknown) Deep Vein Thrombosis/Pulmonary Embolism Present on Admission: No (units unknown) (unknown) (unknown) (no date) (unknown) (unknown) Depression (units unknown) (unknown) (unknown) (no date) (unknown) (unknown) Easy bruisability (units unknown) (unknown) (unknown) (no date) (unknown) (unknown) Eos # (Auto) 200 (units unknown) (unknown) (unknown) (no date) (unknown) (unknown) Eos # (Auto) (units unknown) (unknown) (unknown) (no date) (unknown) (unknown) Eos % (Auto) 1.4 L (units unknown) (unknown) (unknown) (no date) (unknown) (unknown) Eos % (Auto) (units unknown) (unknown) (unknown) (no date) (unknown) (unknown) Epilepsy (units unknown) (unknown) (unknown) (no date) (unknown) (unknown) Estimated GFR > 60 (units unknown) (unknown) (unknown) (no date) (unknown) (unknown) Estimated GFR (units unknown) (unknown) (unknown) (no date) (unknown) (unknown) Exam Narrative: (units unknown) (unknown) (unknown) (no date) (unknown) (unknown) Exam (units unknown) (unknown) (unknown) (no date) (unknown) (unknown) Fraction of Inspired Oxygen 24 (units unknown) (unknown) (unknown) (no date) (unknown) (unknown) Glucose 96 (units unknown) (unknown) (unknown) (no date) (unknown) (unknown) Glucose (units unknown) (unknown) (unknown) (no date) (unknown) (unknown) Hct 26.5 L 31.9 L (units unknown) (unknown) (unknown) (no date) (unknown) (unknown) Hct (units unknown) (unknown) (unknown) (no date) (unknown) (unknown) Heart burn (units unknown) (unknown) (unknown) (no date) (unknown) (unknown) Hgb 9.2 L 10.8 L (units unknown) (unknown) (unknown) (no date) (unknown) (unknown) Hgb (units unknown) (unknown) (unknown) (no date) (unknown) (unknown) Interval history: (units unknown) (unknown) (unknown) (no date) (unknown) (unknown) Intraoperative aquacel grossly clean, dry, and intact with only dime sized spot (units unknown) (unknown) (unknown) (no date) (unknown) (unknown) [address] [id number] (units unknown) (unknown) (unknown) (no date) (unknown) (unknown) Laboratory Results - last 24 hr (units unknown) (unknown) (unknown) (no date) (unknown) (unknown) Labs (units unknown) (unknown) (unknown) (no date) (unknown) (unknown) Labs: (units unknown) (unknown) (unknown) (no date) (unknown) (unknown) Lymph # (Auto) 1700 (units unknown) (unknown) (unknown) (no date) (unknown) (unknown) Lymph # (Auto) (units unknown) (unknown) (unknown) (no date) (unknown) (unknown) Lymph % (Auto) 16.0 L (units unknown) (unknown) (unknown) (no date) (unknown) (unknown) Lymph % (Auto) (units unknown) (unknown) (unknown) (no date) (unknown) (unknown) MCH 32.7 (units unknown) (unknown) (unknown) (no date) (unknown) (unknown) MCH (units unknown) (unknown) (unknown) (no date) (unknown) (unknown) MCHC 33.8 (units unknown) (unknown) (unknown) (no date) (unknown) (unknown) MCHC (units unknown) (unknown) (unknown) (no date) (unknown) (unknown) MCV 96.7 (units unknown) (unknown) (unknown) (no date) (unknown) (unknown) MCV (units unknown) (unknown) (unknown) (no date) (unknown) (unknown) Medical History (units unknown) (unknown) (unknown) (no date) (unknown) (unknown) [place] # (Auto) 1100 H (units unknown) (unknown) (unknown) (no date) (unknown) (unknown) [place] # (Auto) (units unknown) (unknown) (unknown) (no date) (unknown) (unknown) [place] % (Auto) 10.7 (units unknown) (unknown) (unknown) (no date) (unknown) (unknown) [place] % (Auto) (units unknown) (unknown) (unknown) (no date) (unknown) (unknown) Narrative (units unknown) (unknown) (unknown) (no date) (unknown) (unknown) Neck pain (units unknown) (unknown) (unknown) (no date) (unknown) (unknown) Neut # (Auto) 7500 H (units unknown) (unknown) (unknown) (no date) (unknown) (unknown) Neut # (Auto) (units unknown) (unknown) (unknown) (no date) (unknown) (unknown) Neut % (Auto) 71.1 (units unknown) (unknown) (unknown) (no date) (unknown) (unknown) Neut % (Auto) (units unknown) (unknown) (unknown) (no date) (unknown) (unknown) No history of previous surgery (units unknown) (unknown) (unknown) (no date) (unknown) (unknown) Numbness and tingling (units unknown) (unknown) (unknown) (no date) (unknown) (unknown) Objective (units unknown) (unknown) (unknown) (no date) (unknown) (unknown) Operation Date: 02/08/23 14:00 (units unknown) (unknown) (unknown) (no date) (unknown) (unknown) Osteoarthritis (units unknown) (unknown) (unknown) (no date) (unknown) (unknown) Oxygen Delivery Method Nasal Cannula (units unknown) (unknown) (unknown) (no date) (unknown) (unknown) Oxygen Flow Rate 2 2 (units unknown) (unknown) (unknown) (no date) (unknown) (unknown) Oxygen Flow Rate 2 (units unknown) (unknown) (unknown) (no date) (unknown) (unknown) PFSH (units unknown) (unknown) (unknown) (no date) (unknown) (unknown) Pain (units unknown) (unknown) (unknown) (no date) (unknown) (unknown) Patient is somnolent lying in bed this morning, not easily arousable by voice or (units unknown) (unknown) (unknown) (no date) (unknown) (unknown) Patient: Donna Garcia MR#: [id number] (units unknown) (unknown) (unknown) (no date) (unknown) (unknown) Plt Count 195 (units unknown) (unknown) (unknown) (no date) (unknown) (unknown) Plt Count (units unknown) (unknown) (unknown) (no date) (unknown) (unknown) Postoperative day: 3 (units unknown) (unknown) (unknown) (no date) (unknown) (unknown) Postoperative plan narrative: Weightbear as tolerated with assistive devices. (units unknown) (unknown) (unknown) (no date) (unknown) (unknown) Postoperative status narrative: Patient's postoperative course is complicated by (units unknown) (unknown) (unknown) (no date) (unknown) (unknown) Postoperative (units unknown) (unknown) (unknown) (no date) (unknown) (unknown) Potassium 3.8 (units unknown) (unknown) (unknown) (no date) (unknown) (unknown) Potassium (units unknown) (unknown) (unknown) (no date) (unknown) (unknown) Procedures (units unknown) (unknown) (unknown) (no date) (unknown) (unknown) Procedures: (units unknown) (unknown) (unknown) (no date) (unknown) (unknown) Progress Note (units unknown) (unknown) (unknown) (no date) (unknown) (unknown) Provider: Erendira Long P.A-C (units unknown) (unknown) (unknown) (no date) (unknown) (unknown) Pulse Oximetry 93 98 (units unknown) (unknown) (unknown) (no date) (unknown) (unknown) Pulse Rate 86 (units unknown) (unknown) (unknown) (no date) (unknown) (unknown) Quality (units unknown) (unknown) (unknown) (no date) (unknown) (unknown) RBBB (right bundle branch block) (units unknown) (unknown) (unknown) (no date) (unknown) (unknown) RBC 3.30 L (units unknown) (unknown) (unknown) (no date) (unknown) (unknown) RBC (units unknown) (unknown) (unknown) (no date) (unknown) (unknown) RDW 18.4 H (units unknown) (unknown) (unknown) (no date) (unknown) (unknown) RDW (units unknown) (unknown) (unknown) (no date) (unknown) (unknown) Respiratory Rate 20 (units unknown) (unknown) (unknown) (no date) (unknown) (unknown) SaO2/FiO2 Ratio 400 (units unknown) (unknown) (unknown) (no date) (unknown) (unknown) Seizures (units unknown) (unknown) (unknown) (no date) (unknown) (unknown) Signed By: (units unknown) (unknown) (unknown) (no date) (unknown) (unknown) Smoking Status: Smoker, status unknown (units unknown) (unknown) (unknown) (no date) (unknown) (unknown) Social History (units unknown) (unknown) (unknown) (no date) (unknown) (unknown) Sodium 134 L (units unknown) (unknown) (unknown) (no date) (unknown) (unknown) Sodium (units unknown) (unknown) (unknown) (no date) (unknown) (unknown) Somnolent, unarousable. Unable to complete thorough physical exam as patient (units unknown) (unknown) (unknown) (no date) (unknown) (unknown) Subjective (units unknown) (unknown) (unknown) (no date) (unknown) (unknown) Surgical History (units unknown) (unknown) (unknown) (no date) (unknown) (unknown) TIA (transient ischemic attack) (units unknown) (unknown) (unknown) (no date) (unknown) (unknown) Temperature 98.9 F (units unknown) (unknown) (unknown) (no date) (unknown) (unknown) Time Patient Seen: 08:00 (units unknown) (unknown) (unknown) (no date) (unknown) (unknown) VTE (units unknown) (unknown) (unknown) (no date) (unknown) (unknown) Vital Signs (units unknown) (unknown) (unknown) (no date) (unknown) (unknown) WBC 10.5 (units unknown) (unknown) (unknown) (no date) (unknown) (unknown) WBC (units unknown) (unknown) (unknown) (no date) (unknown) (unknown) [Embedded Image Not Available] (units unknown) (unknown) (unknown) (no date) (unknown) (unknown) alcohol intake: current (units unknown) (unknown) (unknown) (no date) (unknown) (unknown) cannot follow commands at this time. Left hip tender to light palpation. (units unknown) (unknown) (unknown) (no date) (unknown) (unknown) household members: family (units unknown) (unknown) (unknown) (no date) (unknown) (unknown) of blood proximally. [place] soft and compressible bilaterally. (units unknown) (unknown) (unknown) (no date) (unknown) (unknown) p Hip Hemiarthroplasty Amari Mariaa Soares MD (units unknown) (unknown) (unknown) (no date) (unknown) (unknown) pain has been well controlled. (units unknown) (unknown) (unknown) (no date) (unknown) (unknown) staple removal. May shower with Aquacel dressing but no soaking incision. (units unknown) (unknown) (unknown) (no date) (unknown) (unknown) to state he has pain to the operative hip. (units unknown) (unknown) (unknown) (no date) (unknown) (unknown) touch. Will not follow voice commands to complete physical exam. Briefly wakes (units unknown) (unknown) Result panel 173 (unknown) (no date) (unknown) (unknown) (no value) (units unknown) (unknown) (unknown) (no date) (unknown) (unknown) (past 8 hours): (units unknown) (unknown) (unknown) (no date) (unknown) (unknown) [id number] (units unknown) (unknown) (unknown) (no date) (unknown) (unknown) 04:45 02/11/23 (units unknown) (unknown) (unknown) (no date) (unknown) (unknown) 05:00 21:14 06:30 (units unknown) (unknown) (unknown) (no date) (unknown) (unknown) 02/10/23 02/10/23 02/11/23 (units unknown) (unknown) (unknown) (no date) (unknown) (unknown) 02/11/23 06:30 (units unknown) (unknown) (unknown) (no date) (unknown) (unknown) 02/11/23 0843 (units unknown) (unknown) (unknown) (no date) (unknown) (unknown) 02/11/23 (units unknown) (unknown) (unknown) (no date) (unknown) (unknown) 06:30 (units unknown) (unknown) (unknown) (no date) (unknown) (unknown) 07:52 (units unknown) (unknown) (unknown) (no date) (unknown) (unknown) Actual Procedure Side Surgeon (units unknown) (unknown) (unknown) (no date) (unknown) (unknown) Age/Sex: 77 / M (units unknown) (unknown) (unknown) (no date) (unknown) (unknown) Alzheimer's dementia (units unknown) (unknown) (unknown) (no date) (unknown) (unknown) Alzheimer's dementia, bed-bound status at baseline, postoperative anemia. His (units unknown) (unknown) (unknown) (no date) (unknown) (unknown) Antibody Screen Negative (units unknown) (unknown) (unknown) (no date) (unknown) (unknown) Antibody Screen (units unknown) (unknown) (unknown) (no date) (unknown) (unknown) Anxiety (units unknown) (unknown) (unknown) (no date) (unknown) (unknown) Assessment + Plan Post-op (units unknown) (unknown) (unknown) (no date) (unknown) (unknown) BUN 16 (units unknown) (unknown) (unknown) (no date) (unknown) (unknown) BUN (units unknown) (unknown) (unknown) (no date) (unknown) (unknown) BUN/Creatinine Ratio 23.5 H (units unknown) (unknown) (unknown) (no date) (unknown) (unknown) BUN/Creatinine Ratio (units unknown) (unknown) (unknown) (no date) (unknown) (unknown) Baso # (Auto) 100 (units unknown) (unknown) (unknown) (no date) (unknown) (unknown) Baso # (Auto) (units unknown) (unknown) (unknown) (no date) (unknown) (unknown) Baso % (Auto) 0.8 (units unknown) (unknown) (unknown) (no date) (unknown) (unknown) Baso % (Auto) (units unknown) (unknown) (unknown) (no date) (unknown) (unknown) Blood Pressure 131/62 (units unknown) (unknown) (unknown) (no date) (unknown) (unknown) Blood Type B Positive (units unknown) (unknown) (unknown) (no date) (unknown) (unknown) Blood Type (units unknown) (unknown) (unknown) (no date) (unknown) (unknown) Calcium 8.1 L (units unknown) (unknown) (unknown) (no date) (unknown) (unknown) Calcium (units unknown) (unknown) (unknown) (no date) (unknown) (unknown) Carbon Dioxide 30 (units unknown) (unknown) (unknown) (no date) (unknown) (unknown) Carbon Dioxide (units unknown) (unknown) (unknown) (no date) (unknown) (unknown) Chest pain (units unknown) (unknown) (unknown) (no date) (unknown) (unknown) Chloride 101 (units unknown) (unknown) (unknown) (no date) (unknown) (unknown) Chloride (units unknown) (unknown) (unknown) (no date) (unknown) (unknown) Creatinine 0.68 (units unknown) (unknown) (unknown) (no date) (unknown) (unknown) Creatinine (units unknown) (unknown) (unknown) (no date) (unknown) (unknown) Crossmatch See Detail (units unknown) (unknown) (unknown) (no date) (unknown) (unknown) Crossmatch (units unknown) (unknown) (unknown) (no date) (unknown) (unknown) : 1945 Acct:[id number] (units unknown) (unknown) (unknown) (no date) (unknown) (unknown) Date Patient Seen: 02/11/23 (units unknown) (unknown) (unknown) (no date) (unknown) (unknown) Date of Service: 02/08/23 (units unknown) (unknown) (unknown) (no date) (unknown) (unknown) Deep Vein Thrombosis/Pulmonary Embolism Present on Admission: No (units unknown) (unknown) (unknown) (no date) (unknown) (unknown) Depression (units unknown) (unknown) (unknown) (no date) (unknown) (unknown) Easy bruisability (units unknown) (unknown) (unknown) (no date) (unknown) (unknown) Eos # (Auto) 200 (units unknown) (unknown) (unknown) (no date) (unknown) (unknown) Eos # (Auto) (units unknown) (unknown) (unknown) (no date) (unknown) (unknown) Eos % (Auto) 1.4 L (units unknown) (unknown) (unknown) (no date) (unknown) (unknown) Eos % (Auto) (units unknown) (unknown) (unknown) (no date) (unknown) (unknown) Epilepsy (units unknown) (unknown) (unknown) (no date) (unknown) (unknown) Estimated GFR > 60 (units unknown) (unknown) (unknown) (no date) (unknown) (unknown) Estimated GFR (units unknown) (unknown) (unknown) (no date) (unknown) (unknown) Exam Narrative: (units unknown) (unknown) (unknown) (no date) (unknown) (unknown) Exam (units unknown) (unknown) (unknown) (no date) (unknown) (unknown) Fraction of Inspired Oxygen 24 (units unknown) (unknown) (unknown) (no date) (unknown) (unknown) Glucose 96 (units unknown) (unknown) (unknown) (no date) (unknown) (unknown) Glucose (units unknown) (unknown) (unknown) (no date) (unknown) (unknown) Hct 26.5 L 31.9 L (units unknown) (unknown) (unknown) (no date) (unknown) (unknown) Hct (units unknown) (unknown) (unknown) (no date) (unknown) (unknown) Heart burn (units unknown) (unknown) (unknown) (no date) (unknown) (unknown) Hgb 9.2 L 10.8 L (units unknown) (unknown) (unknown) (no date) (unknown) (unknown) Hgb (units unknown) (unknown) (unknown) (no date) (unknown) (unknown) Interval history: (units unknown) (unknown) (unknown) (no date) (unknown) (unknown) Intraoperative aquacel grossly clean, dry, and intact with only dime sized spot (units unknown) (unknown) (unknown) (no date) (unknown) (unknown) [address] [address] (units unknown) (unknown) (unknown) (no date) (unknown) (unknown) Laboratory Results - last 24 hr (units unknown) (unknown) (unknown) (no date) (unknown) (unknown) Labs (units unknown) (unknown) (unknown) (no date) (unknown) (unknown) Labs: (units unknown) (unknown) (unknown) (no date) (unknown) (unknown) Lymph # (Auto) 1700 (units unknown) (unknown) (unknown) (no date) (unknown) (unknown) Lymph # (Auto) (units unknown) (unknown) (unknown) (no date) (unknown) (unknown) Lymph % (Auto) 16.0 L (units unknown) (unknown) (unknown) (no date) (unknown) (unknown) Lymph % (Auto) (units unknown) (unknown) (unknown) (no date) (unknown) (unknown) MCH 32.7 (units unknown) (unknown) (unknown) (no date) (unknown) (unknown) MCH (units unknown) (unknown) (unknown) (no date) (unknown) (unknown) MCHC 33.8 (units unknown) (unknown) (unknown) (no date) (unknown) (unknown) MCHC (units unknown) (unknown) (unknown) (no date) (unknown) (unknown) MCV 96.7 (units unknown) (unknown) (unknown) (no date) (unknown) (unknown) MCV (units unknown) (unknown) (unknown) (no date) (unknown) (unknown) Medical History (units unknown) (unknown) (unknown) (no date) (unknown) (unknown) Medical management per primary team and discharge as appropriate. (units unknown) (unknown) (unknown) (no date) (unknown) (unknown) [place] # (Auto) 1100 H (units unknown) (unknown) (unknown) (no date) (unknown) (unknown) [place] # (Auto) (units unknown) (unknown) (unknown) (no date) (unknown) (unknown) [place] % (Auto) 10.7 (units unknown) (unknown) (unknown) (no date) (unknown) (unknown) [place] % (Auto) (units unknown) (unknown) (unknown) (no date) (unknown) (unknown) Narrative (units unknown) (unknown) (unknown) (no date) (unknown) (unknown) Neck pain (units unknown) (unknown) (unknown) (no date) (unknown) (unknown) Neut # (Auto) 7500 H (units unknown) (unknown) (unknown) (no date) (unknown) (unknown) Neut # (Auto) (units unknown) (unknown) (unknown) (no date) (unknown) (unknown) Neut % (Auto) 71.1 (units unknown) (unknown) (unknown) (no date) (unknown) (unknown) Neut % (Auto) (units unknown) (unknown) (unknown) (no date) (unknown) (unknown) No history of previous surgery (units unknown) (unknown) (unknown) (no date) (unknown) (unknown) Numbness and tingling (units unknown) (unknown) (unknown) (no date) (unknown) (unknown) Objective (units unknown) (unknown) (unknown) (no date) (unknown) (unknown) Operation Date: 02/08/23 14:00 (units unknown) (unknown) (unknown) (no date) (unknown) (unknown) Orthopedics will sign off. Please feel free to re-consult as needed. (units unknown) (unknown) (unknown) (no date) (unknown) (unknown) Osteoarthritis (units unknown) (unknown) (unknown) (no date) (unknown) (unknown) Oxygen Delivery Method Nasal Cannula (units unknown) (unknown) (unknown) (no date) (unknown) (unknown) Oxygen Flow Rate 2 2 (units unknown) (unknown) (unknown) (no date) (unknown) (unknown) Oxygen Flow Rate 2 (units unknown) (unknown) (unknown) (no date) (unknown) (unknown) PFSH (units unknown) (unknown) (unknown) (no date) (unknown) (unknown) Pain (units unknown) (unknown) (unknown) (no date) (unknown) (unknown) Patient is somnolent lying in bed this morning, not easily arousable by voice or (units unknown) (unknown) (unknown) (no date) (unknown) (unknown) Patient: Donna Garcia MR#: [id number] (units unknown) (unknown) (unknown) (no date) (unknown) (unknown) Plt Count 195 (units unknown) (unknown) (unknown) (no date) (unknown) (unknown) Plt Count (units unknown) (unknown) (unknown) (no date) (unknown) (unknown) Postoperative day: 3 (units unknown) (unknown) (unknown) (no date) (unknown) (unknown) Postoperative plan narrative: Orthopedically, patient was to weightbear as (units unknown) (unknown) (unknown) (no date) (unknown) (unknown) Postoperative status narrative: Patient's postoperative course is complicated by (units unknown) (unknown) (unknown) (no date) (unknown) (unknown) Postoperative (units unknown) (unknown) (unknown) (no date) (unknown) (unknown) Potassium 3.8 (units unknown) (unknown) (unknown) (no date) (unknown) (unknown) Potassium (units unknown) (unknown) (unknown) (no date) (unknown) (unknown) Procedures (units unknown) (unknown) (unknown) (no date) (unknown) (unknown) Procedures: (units unknown) (unknown) (unknown) (no date) (unknown) (unknown) Progress Note (units unknown) (unknown) (unknown) (no date) (unknown) (unknown) Provider: Erendira Long P.A-C (units unknown) (unknown) (unknown) (no date) (unknown) (unknown) Pulse Oximetry 93 98 (units unknown) (unknown) (unknown) (no date) (unknown) (unknown) Pulse Rate 86 (units unknown) (unknown) (unknown) (no date) (unknown) (unknown) Quality (units unknown) (unknown) (unknown) (no date) (unknown) (unknown) RBBB (right bundle branch block) (units unknown) (unknown) (unknown) (no date) (unknown) (unknown) RBC 3.30 L (units unknown) (unknown) (unknown) (no date) (unknown) (unknown) RBC (units unknown) (unknown) (unknown) (no date) (unknown) (unknown) RDW 18.4 H (units unknown) (unknown) (unknown) (no date) (unknown) (unknown) RDW (units unknown) (unknown) (unknown) (no date) (unknown) (unknown) Respiratory Rate 20 (units unknown) (unknown) (unknown) (no date) (unknown) (unknown) SaO2/FiO2 Ratio 400 (units unknown) (unknown) (unknown) (no date) (unknown) (unknown) Seizures (units unknown) (unknown) (unknown) (no date) (unknown) (unknown) Signed By:<Electronically signed by Erendira Long> (units unknown) (unknown) (unknown) (no date) (unknown) (unknown) Smoking Status: Smoker, status unknown (units unknown) (unknown) (unknown) (no date) (unknown) (unknown) Social History (units unknown) (unknown) (unknown) (no date) (unknown) (unknown) Sodium 134 L (units unknown) (unknown) (unknown) (no date) (unknown) (unknown) Sodium (units unknown) (unknown) (unknown) (no date) (unknown) (unknown) Somnolent, unarousable. Unable to complete thorough physical exam as patient (units unknown) (unknown) (unknown) (no date) (unknown) (unknown) Subjective (units unknown) (unknown) (unknown) (no date) (unknown) (unknown) Surgical History (units unknown) (unknown) (unknown) (no date) (unknown) (unknown) TIA (transient ischemic attack) (units unknown) (unknown) (unknown) (no date) (unknown) (unknown) Temperature 98.9 F (units unknown) (unknown) (unknown) (no date) (unknown) (unknown) Time Patient Seen: 08:00 (units unknown) (unknown) (unknown) (no date) (unknown) (unknown) VTE (units unknown) (unknown) (unknown) (no date) (unknown) (unknown) Vital Signs (units unknown) (unknown) (unknown) (no date) (unknown) (unknown) WBC 10.5 (units unknown) (unknown) (unknown) (no date) (unknown) (unknown) WBC (units unknown) (unknown) (unknown) (no date) (unknown) (unknown) [Embedded Image Not Available] (units unknown) (unknown) (unknown) (no date) (unknown) (unknown) alcohol intake: current (units unknown) (unknown) (unknown) (no date) (unknown) (unknown) cannot follow commands at this time. Left hip tender to light palpation. (units unknown) (unknown) (unknown) (no date) (unknown) (unknown) household members: family (units unknown) (unknown) (unknown) (no date) (unknown) (unknown) in 2 weeks for staple removal. May shower with Aquacel dressing but no soaking (units unknown) (unknown) (unknown) (no date) (unknown) (unknown) incision. Change as needed. (units unknown) (unknown) (unknown) (no date) (unknown) (unknown) of blood proximally. Calves soft and compressible bilaterally. (units unknown) (unknown) (unknown) (no date) (unknown) (unknown) p Hip Hemiarthroplasty Amari Mariaa Soares MD (units unknown) (unknown) (unknown) (no date) (unknown) (unknown) pain has been well controlled. (units unknown) (unknown) (unknown) (no date) (unknown) (unknown) to state he has pain to the operative hip. (units unknown) (unknown) (unknown) (no date) (unknown) (unknown) tolerated with assistive devices. However, he is bed bound at baseline. He is to (units unknown) (unknown) (unknown) (no date) (unknown) (unknown) touch. Will not follow voice commands to complete physical exam. Briefly wakes (units unknown) (unknown) (unknown) (no date) (unknown) (unknown) use abduction pillow while in bed and maintain posterior hip precautions for 6 (units unknown) (unknown) (unknown) (no date) (unknown) (unknown) weeks. Lovenox 40 mg subcutaneous for 4 weeks for DVT prophylaxis. Follow-up (units unknown) (unknown) Result panel 174 (unknown) (no date) (unknown) (unknown) (no value) (units unknown) (unknown) (unknown) (no date) (unknown) (unknown) NO GROWTH AFTER 48 HOURS (units unknown) (unknown) Result panel 175 (unknown) (no date) (unknown) (unknown) (no value) (units unknown) (unknown) (unknown) (no date) (unknown) (unknown) NO GROWTH AFTER 48 HOURS (units unknown) (unknown) Result panel 176 (unknown) (no date) (unknown) (unknown) (no value) (units unknown) (unknown) (unknown) (no date) (unknown) (unknown) (past 8 hours): (units unknown) (unknown) (unknown) (no date) (unknown) (unknown) [id number] (units unknown) (unknown) (unknown) (no date) (unknown) (unknown) 02/08/23 02:41 (units unknown) (unknown) (unknown) (no date) (unknown) (unknown) 02/08/23 03:01 (units unknown) (unknown) (unknown) (no date) (unknown) (unknown) 02/08/23 21:59 (units unknown) (unknown) (unknown) (no date) (unknown) (unknown) 02/09/23 10:21 (units unknown) (unknown) (unknown) (no date) (unknown) (unknown) 02/09/23 14:33 (units unknown) (unknown) (unknown) (no date) (unknown) (unknown) 02/11/23 06:30 (units unknown) (unknown) (unknown) (no date) (unknown) (unknown) 02/12/23 1156 (units unknown) (unknown) (unknown) (no date) (unknown) (unknown) 02/12/23 (units unknown) (unknown) (unknown) (no date) (unknown) (unknown) 07:00 (units unknown) (unknown) (unknown) (no date) (unknown) (unknown) 08:00 02/12/23 (units unknown) (unknown) (unknown) (no date) (unknown) (unknown) 1 mg PO BEDTIME (units unknown) (unknown) (unknown) (no date) (unknown) (unknown) 1,000 mg PO TID (units unknown) (unknown) (unknown) (no date) (unknown) (unknown) 1,000 unit PO DAILY (units unknown) (unknown) (unknown) (no date) (unknown) (unknown) 1. Pathologic left femoral neck fracture (units unknown) (unknown) (unknown) (no date) (unknown) (unknown) 100 mg PO BEDTIME (units unknown) (unknown) (unknown) (no date) (unknown) (unknown) 12.5 mg PO BID (units unknown) (unknown) (unknown) (no date) (unknown) (unknown) 17 g PO BID (units unknown) (unknown) (unknown) (no date) (unknown) (unknown) 17.2 mg PO BEDTIME Qty: 60 0RF (units unknown) (unknown) (unknown) (no date) (unknown) (unknown) 2. Acute blood loss anemia (units unknown) (unknown) (unknown) (no date) (unknown) (unknown) 20 mg PO BEDTIME (units unknown) (unknown) (unknown) (no date) (unknown) (unknown) 20 mg PO DAILY (units unknown) (unknown) (unknown) (no date) (unknown) (unknown) 3. Chronic iron deficiency anemia (units unknown) (unknown) (unknown) (no date) (unknown) (unknown) 300 mg PO DAILY (units unknown) (unknown) (unknown) (no date) (unknown) (unknown) 325 mg PO DAILY (units unknown) (unknown) (unknown) (no date) (unknown) (unknown) 4 g TOPICAL QID (units unknown) (unknown) (unknown) (no date) (unknown) (unknown) 4. Alzheimer' dementia (units unknown) (unknown) (unknown) (no date) (unknown) (unknown) 5 mg PO Q6H PRN (Reason: Pain, Mild (1-3)) Qty: 30 0RF (units unknown) (unknown) (unknown) (no date) (unknown) (unknown) 5. Seizure disorder (units unknown) (unknown) (unknown) (no date) (unknown) (unknown) 6 mg PO BEDTIME (units unknown) (unknown) (unknown) (no date) (unknown) (unknown) 600 mg PO BID (units unknown) (unknown) (unknown) (no date) (unknown) (unknown) 750 mg PO BID (units unknown) (unknown) (unknown) (no date) (unknown) (unknown) 77-year-old male with a past medical history of seizure disorder, remote TIA, (units unknown) (unknown) (unknown) (no date) (unknown) (unknown) 8.6 mg PO BID (units unknown) (unknown) (unknown) (no date) (unknown) (unknown) 81 mg PO DAILY (units unknown) (unknown) (unknown) (no date) (unknown) (unknown) Activity: Weightbear as tolerated with assistive devices. Abduction pillow (units unknown) (unknown) (unknown) (no date) (unknown) (unknown) Age/Sex: 77 / M (units unknown) (unknown) (unknown) (no date) (unknown) (unknown) Kody Wolf MD (units unknown) (unknown) (unknown) (no date) (unknown) (unknown) Alzheimer's dementia (units unknown) (unknown) (unknown) (no date) (unknown) (unknown) Anxiety (units unknown) (unknown) (unknown) (no date) (unknown) (unknown) Assessment and Plan (units unknown) (unknown) (unknown) (no date) (unknown) (unknown) Assessment: (units unknown) (unknown) (unknown) (no date) (unknown) (unknown) At noon (units unknown) (unknown) (unknown) (no date) (unknown) (unknown) Blood Pressure 79/43 L (units unknown) (unknown) (unknown) (no date) (unknown) (unknown) Chest pain (units unknown) (unknown) (unknown) (no date) (unknown) (unknown) Chief complaint: Left femoral neck fracture (units unknown) (unknown) (unknown) (no date) (unknown) (unknown) Cognitive/behavioral status at discharge: at baseline, confused (units unknown) (unknown) (unknown) (no date) (unknown) (unknown) Comment: [employer] 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 program, RN, wound care post hip (units unknown) (unknown) (unknown) (no date) (unknown) (unknown) Comment: wbat , php x 6 wks, abd pillow when in bed (units unknown) (unknown) (unknown) (no date) (unknown) (unknown) Comment: (units unknown) (unknown) (unknown) (no date) (unknown) (unknown) Mariaa Soares MD [Physician] - 2 Weeks (Follow up 2 weeks after surgery for (units unknown) (unknown) (unknown) (no date) (unknown) (unknown) Consult to Discharge Planning Routine (units unknown) (unknown) (unknown) (no date) (unknown) (unknown) Consult to Home Health Routine (units unknown) (unknown) (unknown) (no date) (unknown) (unknown) Consult to Occupational Therapy Evaluate + Treat (units unknown) (unknown) (unknown) (no date) (unknown) (unknown) Consult to Physical Therapy Evaluate + Treat (units unknown) (unknown) (unknown) (no date) (unknown) (unknown) Consult to Physician Routine (units unknown) (unknown) (unknown) (no date) (unknown) (unknown) Consulting Provider: Mariaa Soares (units unknown) (unknown) (unknown) (no date) (unknown) (unknown) Consults: (units unknown) (unknown) (unknown) (no date) (unknown) (unknown) Continued (units unknown) (unknown) (unknown) (no date) (unknown) (unknown) : 1945 Acct:[id number] (units unknown) (unknown) (unknown) (no date) (unknown) (unknown) Date of Service: 02/08/23 (units unknown) (unknown) (unknown) (no date) (unknown) (unknown) Date of admission: (units unknown) (unknown) (unknown) (no date) (unknown) (unknown) Deep Vein Thrombosis/Pulmonary Embolism Present on Admission: No (units unknown) (unknown) (unknown) (no date) (unknown) (unknown) Depression (units unknown) (unknown) (unknown) (no date) (unknown) (unknown) Diet/Activity/Treatm ents (units unknown) (unknown) (unknown) (no date) (unknown) (unknown) Diet: Regular (units unknown) (unknown) (unknown) (no date) (unknown) (unknown) Discharge Assessment + Plan (units unknown) (unknown) (unknown) (no date) (unknown) (unknown) Discharge Date: 02/12/23 (units unknown) (unknown) (unknown) (no date) (unknown) (unknown) Discharge Diagnosis: (units unknown) (unknown) (unknown) (no date) (unknown) (unknown) Discharge Plan (units unknown) (unknown) (unknown) (no date) (unknown) (unknown) Discharge Providers (units unknown) (unknown) (unknown) (no date) (unknown) (unknown) Discharge Summary (units unknown) (unknown) (unknown) (no date) (unknown) (unknown) Discharge orders + Medications (units unknown) (unknown) (unknown) (no date) (unknown) (unknown) Discharge provider: (units unknown) (unknown) (unknown) (no date) (unknown) (unknown) Discharge (units unknown) (unknown) (unknown) (no date) (unknown) (unknown) Dressing: May shower with Aquacel dressing but no soaking incision. Change as (units unknown) (unknown) (unknown) (no date) (unknown) (unknown) Easy bruisability (units unknown) (unknown) (unknown) (no date) (unknown) (unknown) Epilepsy (units unknown) (unknown) (unknown) (no date) (unknown) (unknown) Exam Narrative: (units unknown) (unknown) (unknown) (no date) (unknown) (unknown) Exam (units unknown) (unknown) (unknown) (no date) (unknown) (unknown) Extremities: Left hip operative site with clean, dry dressing, no distal edema, (units unknown) (unknown) (unknown) (no date) (unknown) (unknown) Follow up/Referrals: (units unknown) (unknown) (unknown) (no date) (unknown) (unknown) Follow-up in 2 weeks for staple removal. (units unknown) (unknown) (unknown) (no date) (unknown) (unknown) Fraction of Inspired Oxygen 24 (units unknown) (unknown) (unknown) (no date) (unknown) (unknown) Functional status at discharge: wheelchair bound (units unknown) (unknown) (unknown) (no date) (unknown) (unknown) General: Patient alert, at baseline confused (units unknown) (unknown) (unknown) (no date) (unknown) (unknown) Has provider been notified: Yes (units unknown) (unknown) (unknown) (no date) (unknown) (unknown) Heart burn (units unknown) (unknown) (unknown) (no date) (unknown) (unknown) His pain has been well controlled with medication. He will return to his (units unknown) (unknown) (unknown) (no date) (unknown) (unknown) History of Present Illness (units unknown) (unknown) (unknown) (no date) (unknown) (unknown) Hospital Course (units unknown) (unknown) (unknown) (no date) (unknown) (unknown) Hospital Course: (units unknown) (unknown) (unknown) (no date) (unknown) (unknown) [address] [address] (units unknown) (unknown) (unknown) (no date) (unknown) (unknown) Labs (units unknown) (unknown) (unknown) (no date) (unknown) (unknown) Lungs: Clear (units unknown) (unknown) (unknown) (no date) (unknown) (unknown) Medical History (units unknown) (unknown) (unknown) (no date) (unknown) (unknown) Narrative (units unknown) (unknown) (unknown) (no date) (unknown) (unknown) Narrative: (units unknown) (unknown) (unknown) (no date) (unknown) (unknown) Neck pain (units unknown) (unknown) (unknown) (no date) (unknown) (unknown) New (units unknown) (unknown) (unknown) (no date) (unknown) (unknown) No history of previous surgery (units unknown) (unknown) (unknown) (no date) (unknown) (unknown) Numbness and tingling (units unknown) (unknown) (unknown) (no date) (unknown) (unknown) Objective (units unknown) (unknown) (unknown) (no date) (unknown) (unknown) Osteoarthritis (units unknown) (unknown) (unknown) (no date) (unknown) (unknown) Other treatments: Lovenox 40 mg subcutaneous for 4 weeks for DVT prophylaxis. (units unknown) (unknown) (unknown) (no date) (unknown) (unknown) Overall status at discharge: patient is progressing back to baseline (units unknown) (unknown) (unknown) (no date) (unknown) (unknown) Oxygen Delivery Method Room Air (units unknown) (unknown) (unknown) (no date) (unknown) (unknown) Oxygen Flow Rate 0 (units unknown) (unknown) (unknown) (no date) (unknown) (unknown) PFSH (units unknown) (unknown) (unknown) (no date) (unknown) (unknown) Pain (units unknown) (unknown) (unknown) (no date) (unknown) (unknown) Patient Disposition: Home (units unknown) (unknown) (unknown) (no date) (unknown) (unknown) Patient was admitted due to fracture from rolling out of bed and having (units unknown) (unknown) (unknown) (no date) (unknown) (unknown) Patient's postoperative course is complicated by Alzheimer's dementia and bed (units unknown) (unknown) (unknown) (no date) (unknown) (unknown) Patient: Donna Garcia MR#: [id number] (units unknown) (unknown) (unknown) (no date) (unknown) (unknown) Physician Instructions: Evaluate and Treat (units unknown) (unknown) (unknown) (no date) (unknown) (unknown) Physician Instructions: Evaluate and treat (units unknown) (unknown) (unknown) (no date) (unknown) (unknown) Plan of Treatment: (units unknown) (unknown) (unknown) (no date) (unknown) (unknown) Prescriptions: (units unknown) (unknown) (unknown) (no date) (unknown) (unknown) Procedure: Left hip hemiarthroplasty 02/08/[address] Mariaa Soares (units unknown) (unknown) (unknown) (no date) (unknown) (unknown) Provider (units unknown) (unknown) (unknown) (no date) (unknown) (unknown) Provider: Kody Wolf MD (units unknown) (unknown) (unknown) (no date) (unknown) (unknown) Pulse Oximetry 95 (units unknown) (unknown) (unknown) (no date) (unknown) (unknown) Pulse Rate 82 (units unknown) (unknown) (unknown) (no date) (unknown) (unknown) Quality (units unknown) (unknown) (unknown) (no date) (unknown) (unknown) RBBB (right bundle branch block) (units unknown) (unknown) (unknown) (no date) (unknown) (unknown) RTBBB Alzheimer's dementia, HDL, iron-deficiency, GERD, +HTN who resides at a (units unknown) (unknown) (unknown) (no date) (unknown) (unknown) Reason For Exam: Home Health RN, P.T. (units unknown) (unknown) (unknown) (no date) (unknown) (unknown) Reason for consultation: Left femoral neck fracture (units unknown) (unknown) (unknown) (no date) (unknown) (unknown) Report to your healthcare provider any signs of infection, such as:: chills, (units unknown) (unknown) (unknown) (no date) (unknown) (unknown) Respiratory Rate 16 (units unknown) (unknown) (unknown) (no date) (unknown) (unknown) Rx Instructions: (units unknown) (unknown) (unknown) (no date) (unknown) (unknown) SaO2/FiO2 Ratio 400 (units unknown) (unknown) (unknown) (no date) (unknown) (unknown) Seizures (units unknown) (unknown) (unknown) (no date) (unknown) (unknown) Signed By:<Electronically signed by Kody Wolf MD> (units unknown) (unknown) (unknown) (no date) (unknown) (unknown) Since patient is bed-bound at baseline, he has not worked with physical therapy. (units unknown) (unknown) (unknown) (no date) (unknown) (unknown) Skin/Wound/Dressing Care (units unknown) (unknown) (unknown) (no date) (unknown) (unknown) Smoking Status: Smoker, status unknown (units unknown) (unknown) (unknown) (no date) (unknown) (unknown) Social History (units unknown) (unknown) (unknown) (no date) (unknown) (unknown) Stand Alone Forms: Patient Portal/API, Stroke Signs + Symptoms, Surgery (units unknown) (unknown) (unknown) (no date) (unknown) (unknown) Status at Discharge (units unknown) (unknown) (unknown) (no date) (unknown) (unknown) Summary (units unknown) (unknown) (unknown) (no date) (unknown) (unknown) Surgical History (units unknown) (unknown) (unknown) (no date) (unknown) (unknown) TIA (transient ischemic attack) (units unknown) (unknown) (unknown) (no date) (unknown) (unknown) Temperature 101.7 F H (units unknown) (unknown) (unknown) (no date) (unknown) (unknown) Time Spent with Patient (units unknown) (unknown) (unknown) (no date) (unknown) (unknown) Time spent: Greater than 30 minutes (units unknown) (unknown) (unknown) (no date) (unknown) (unknown) VTE (units unknown) (unknown) (unknown) (no date) (unknown) (unknown) Visit Report/Discharge Packet (units unknown) (unknown) (unknown) (no date) (unknown) (unknown) Vital Signs (units unknown) (unknown) (unknown) (no date) (unknown) (unknown) [Embedded Image Not Available] (units unknown) (unknown) (unknown) (no date) (unknown) (unknown) acetaminophen 500 mg Tablet (units unknown) (unknown) (unknown) (no date) (unknown) (unknown) adult family tomorrow, ambulance transfer scheduled for tomorrow at noon. He (units unknown) (unknown) (unknown) (no date) (unknown) (unknown) alcohol intake: current (units unknown) (unknown) (unknown) (no date) (unknown) (unknown) appears to be in mild discomfort, but in no acute distress at this time. (units unknown) (unknown) (unknown) (no date) (unknown) (unknown) apply to single knee, ankle, foot; for foot includes sole/toes/top of foot (units unknown) (unknown) (unknown) (no date) (unknown) (unknown) aspirin 81 mg Tablet,Delayed Release (Dr/Ec) (units unknown) (unknown) (unknown) (no date) (unknown) (unknown) atorvastatin 20 mg Tablet (units unknown) (unknown) (unknown) (no date) (unknown) (unknown) bound status at baseline. His pain has been well controlled. (units unknown) (unknown) (unknown) (no date) (unknown) (unknown) breath, any other pain or discomfort at this time.? His moving around in bed and (units unknown) (unknown) (unknown) (no date) (unknown) (unknown) cholecalciferol (vitamin D3) 25 mcg (1,000 unit) tablet (units unknown) (unknown) (unknown) (no date) (unknown) (unknown) dementia.? Patient complains of left hip pain, denies chest pain, shortness at (units unknown) (unknown) (unknown) (no date) (unknown) (unknown) diclofenac sodium [Arthritis Pain (diclofenac)] 1 % Gel (units unknown) (unknown) (unknown) (no date) (unknown) (unknown) discharged back to adult family home where he lives. (units unknown) (unknown) (unknown) (no date) (unknown) (unknown) distal sensation intact (units unknown) (unknown) (unknown) (no date) (unknown) (unknown) ferrous sulfate 325 mg (65 mg iron) Tablet,Delayed Release (Dr/Ec) (units unknown) (unknown) (unknown) (no date) (unknown) (unknown) fever, night sweats, unusual drainage and unusual redness (units unknown) (unknown) (unknown) (no date) (unknown) (unknown) gabapentin 300 mg Capsule (units unknown) (unknown) (unknown) (no date) (unknown) (unknown) snf on [facility], was brought into the ED after rolling out of bed (units unknown) (unknown) (unknown) (no date) (unknown) (unknown) hit his head or had a LOC, head CT was negative for any acute changes. Unable to (units unknown) (unknown) (unknown) (no date) (unknown) (unknown) household members: family (units unknown) (unknown) (unknown) (no date) (unknown) (unknown) indication of a GI bleed. He is chronically on daily oral iron. He is being (units unknown) (unknown) (unknown) (no date) (unknown) (unknown) landing on the floor fracturing left femur. Ed was unable to verify if pt had (units unknown) (unknown) (unknown) (no date) (unknown) (unknown) levetiracetam 750 mg Tablet (units unknown) (unknown) (unknown) (no date) (unknown) (unknown) melatonin 3 mg Tablet (units unknown) (unknown) (unknown) (no date) (unknown) (unknown) metoprolol tartrate 25 mg Tablet (units unknown) (unknown) (unknown) (no date) (unknown) (unknown) needed. (units unknown) (unknown) (unknown) (no date) (unknown) (unknown) obtain accurate HPI, ROS, med reconciliation due to patient's Alzheimer (units unknown) (unknown) (unknown) (no date) (unknown) (unknown) omeprazole 20 mg Capsule,Delayed Release(Dr/Ec) (units unknown) (unknown) (unknown) (no date) (unknown) (unknown) osteoporosis. He had definitive treatment with hemiarthroplasty. Had (units unknown) (unknown) (unknown) (no date) (unknown) (unknown) oxycodone 5 mg Tablet (units unknown) (unknown) (unknown) (no date) (unknown) (unknown) polyethylene glycol 3350 [Miralax] 17 gram Powder In Packet (units unknown) (unknown) (unknown) (no date) (unknown) (unknown) prazosin 1 mg Capsule (units unknown) (unknown) (unknown) (no date) (unknown) (unknown) sennosides [senna] 8.6 mg Tablet (units unknown) (unknown) (unknown) (no date) (unknown) (unknown) sertraline 100 mg Tablet (units unknown) (unknown) (unknown) (no date) (unknown) (unknown) significant drop in hemoglobin postop and transfused 2 units PRBC. There is no (units unknown) (unknown) (unknown) (no date) (unknown) (unknown) staple removal.) (units unknown) (unknown) (unknown) (no date) (unknown) (unknown) while in bed. Posterior hip precautions for 6 weeks. (units unknown) (unknown) (unknown) (no date) (unknown) (unknown) will follow up with Orthopedics 2 weeks after surgery for staple removal. (units unknown) (unknown) Result panel 177 (unknown) (no date) (unknown) (unknown) (no value) (units unknown) (unknown) (unknown) (no date) (unknown) (unknown) NO GROWTH AFTER 72 HOURS (units unknown) (unknown) Result panel 178 (unknown) (no date) (unknown) (unknown) (no value) (units unknown) (unknown) (unknown) (no date) (unknown) (unknown) NO GROWTH AFTER 72 HOURS (units unknown) (unknown) Result panel 179 (unknown) (no date) (unknown) (unknown) (no value) (units unknown) (unknown) (unknown) (no date) (unknown) (unknown) NO GROWTH AFTER 4 DAYS (units unknown) (unknown) Result panel 180 (unknown) (no date) (unknown) (unknown) (no value) (units unknown) (unknown) (unknown) (no date) (unknown) (unknown) NO GROWTH AFTER 4 DAYS (units unknown) (unknown) Result panel 181 (unknown) (no date) (unknown) (unknown) (no value) (units unknown) (unknown) (unknown) (no date) (unknown) (unknown) NO GROWTH AFTER 5 DAYS (units unknown) (unknown) Result panel 182 (unknown) (no date) (unknown) (unknown) (no value) (units unknown) (unknown) (unknown) (no date) (unknown) (unknown) NO GROWTH AFTER 5 DAYS (units unknown) (unknown) Social History date description facility 2023-02-08 00:00 Smokes tobacco daily (finding) [facility] 2023-02-08 00:00 Smoker (finding) [facility] Vital Signs date measurement value units 2023-02-07 00:00 temperature_metric 37 C 2023-02-07 00:00 temperature_standard 98.6 F 2023-02-08 00:00 BMI 20.2 kg/m2 2023-02-08 00:00 BP_diastolic 56 mmHg 2023-02-08 00:00 BP_systolic 107 mmHg 2023-02-08 00:00 heart_rate 66 /min 2023-02-08 00:00 height_metric 167.64 cm 2023-02-08 00:00 height_standard 66 in 2023-02-08 00:00 o2_saturation 93 % 2023-02-08 00:00 respiration_rate 18 /min 2023-02-08 00:00 weight_metric 57 kg 2023-02-08 00:00 weight_standard 125.66 lb 2023-02-12 00:00 BP_diastolic 43 mmHg 2023-02-12 00:00 BP_systolic 79 mmHg 2023-02-12 00:00 heart_rate 82 /min 2023-02-12 00:00 o2_saturation 95 % 2023-02-12 00:00 respiration_rate 16 /min 2023-02-12 00:00 temperature_metric 38.72 C 2023-02-12 00:00 temperature_standard 101.7 F
[2023-02-17 16:36] LABS: ALBUMIN 2.9 g/dL (3.2-5.5); ALBUMIN/GLOBULIN RATIO 0.8 (1.0-2.2); BILIRUBIN,TOTAL 0.9 mg/dL (0.2-1.0); CALCIUM 8.1 mg/dL (8.5-10.3); CREATININE 0.8 mg/dL (0.6-1.2); POTASSIUM 4.2 mmol/L (3.5-5.0); TOTAL PROTEIN 6.4 g/dL (6.7-8.2)
--- NOTE | 2023-02-17 16:38 | XRAY Report ---
PROCEDURE: Chest 1 View X-Ray INDICATIONS: AMS TECHNIQUE: One view of the chest was acquired. COMPARISON: 10/20/2019 FINDINGS: Surgical changes and devices: Partially seen cervical fusion hardware. Lungs and pleura: Low lung volumes. No dense consolidation or pleural effusion. Mediastinum: Mediastinal contours appear normal. Heart size is normal. Bones and chest wall: No suspicious bony lesions. Overlying soft tissues appear unremarkable. IMPRESSION: Low lung volumes, limiting evaluation. No acute radiographic abnormality. Reviewed by: Cristi Puri MD on 02/17/2023 4:37 PM PDT Approved by: Cristi Puri MD on 02/17/2023 4:37 PM PDT Station ID: [id number]
[2023-02-17 16:44] LABS: BASOPHILS % (AUTO) 0.2 %; EOSINOPHILS # (AUTO) 0.1 10^3/uL (0.0-0.7); EOSINOPHILS % (AUTO) 0.9 %; HCT - HEMATOCRIT 33.1 % (42.0-52.0); HGB - HEMOGLOBIN 10.4 g/dL (14.0-18.0); LYMPHOCYTES # (AUTO) 1.1 10^3/uL (1.5-3.5); LYMPHOCYTES % (AUTO) 17.5 %; MEAN CORPUSCULAR HGB CONC 31.4 g/dL (32.0-36.0); MEAN CORPUSCULAR VOLUME 101.8 fL (80.0-94.0); MEAN PLATELET VOLUME 11.5 fL (7.4-11.4); MONOCYTES # (AUTO) 0.7 10^3/uL (0.0-1.0); MONOCYTES % (AUTO) 10.7 %; NEUTROPHILS # (AUTO) 4.5 10^3/uL (1.5-6.6); NEUTROPHILS % (AUTO) 70.1 %; RED BLOOD COUNT 3.25 10^6/uL (4.70-6.10); RED CELL DISTRIBUTION WIDTH 15.8 % (12.0-15.0); WHITE BLOOD COUNT 6.4 x10^3/uL (4.8-10.8)
[2023-02-17 17:00] LABS: SLIDE REVIEW? Indicated
[2023-02-17 17:06] LABS: PLATELET ESTIMATE, MANUAL NORMAL (130-450,000) (NORMAL); PLATELET MORPHOLOGY NORMAL APPEARANCE (NORMAL); PLT - PLATELET COUNT 244 10^3/uL (130-450); RBC MORPHOLOGY (MULTIPLE) NORMAL APPEARANCE (NORMAL)
[2023-02-17 17:11] LABS: BILIRUBIN,URINE NEGATIVE (NEGATIVE); GLUCOSE, URINE (UA) NEGATIVE (NEGATIVE); KETONES,URINE (UA) NEGATIVE (NEGATIVE); LEUKOCYTE ESTERASE, URINE NEGATIVE (NEGATIVE); NITRITE,URINE NEGATIVE (NEGATIVE); OCCULT BLOOD,URINE SMALL (NEGATIVE); PH,URINE 6.5 PH (5.0-7.5); PROTEIN,URINE NEGATIVE (NEGATIVE); UROBILINOGEN,URINE 1 (NORMAL) E.U./dL (NORMAL)
[2023-02-17 17:13] LABS: CLARITY,URINE SL. CLOUDY (CLEAR)
[2023-02-17 17:18] LABS: BACTERIA,URINE Rare /HPF (None Seen); RBC,URINE 0-5 /HPF (0-5); SQUAMOUS EPITHELIAL CELL,UR RARE Squamous (<= Few); WBC,URINE 0-3 /HPF (0-3)
[2023-02-17] MEDS ORDERED: SODIUM CHLORIDE 0.9% 500 ML IV STA (17:35)
--- NOTE | 2023-02-17 17:42 | CT Report ---
PROCEDURE: HEAD WO INDICATIONS: AMS TECHNIQUE: Noncontrast 4.5 mm thick angled axial sections acquired from the foramen magnum to the vertex. For r adiation dose reduction, the following was used: automated exposure control, adjustment of mA and/or kV according to patient size. COMPARISON: Head CT without, 11/07/2020. FINDINGS: Image quality: Excellent. CSF spaces: Basal cisterns are patent. No extra-axial fluid collections. Ventricles are normal in size and shape. Brain: No midline shift. No intracranial masses or hemorrhage. [place]-white matter interface is norm al. Moderate cerebral volume loss and moderate periventricular white matter chronic small vessel isc hemic changes. 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 Skull and face: Calvarium and visualized facial bones are intact. There are small lucencies in the l eft frontal bone, unchanged, likely benign. Sinuses: Mild left maxillary sinus mucosal thickening. The Mastoids are clear. IMPRESSION: 1. No acute intracranial abnormality. 2. Cerebral volume loss and periventricular white matter chronic small vessel ischemic changes. 3. Small lucencies in the left frontal bone, unchanged, likely benign. Reviewed by: Abdon Alcantar MD on 02/17/2023 5:40 PM PDT Approved by: Abdon Alcantar MD on 02/17/2023 5:40 PM PDT Station ID: [id number]
[2023-02-17] MEDS ORDERED: iohexoL-300 100 ML VIAL ONE ×2 (17:49→21:43)
--- NOTE | 2023-02-17 20:17 | ED Physician Documentation ---
History of Present Illness - Stated complaint Stated Complaint: AMS - Chief complaint Chief Complaint: Neuro - History obtained from History obtained from: Patient, EMS - Additonal information Additional information: Patient is a 77-year-old male with a history of seizure disorder presenting for evaluation of altered mental status. He is at an adult foster home and per EMS reports he has been more confused since yesterday. He was recently discharged from [facility] after a left hip surgery.Patient is able to state his name, where he is and month and year but is not able to tell me why he is here. History is very limited from the EMS report. Review of Systems Unable to obtain: AMS PD PAST MEDICAL HISTORY - Past Medical History Cardiovascular: None, Hypertension, High cholesterol Respiratory: None Neuro: Seizure disorder Endocrine/Autoimmune: None GI: None : None HEENT: None Psych: None Musculoskeletal: None Derm: None - Present Medications Home Medications: Ambulatory Orders Medication Instructions Recorded Confirmed Aspirin Chewable [St Price 81 mg PO DAILY 10/02/18 02/17/23 Aspirin] Metoprolol Tartrate [Lopressor] 12.5 mg PO BID #60 tablet 10/04/18 02/17/23 levETIRAcetam [Keppra] 750 mg PO BID #180 tablet 10/04/18 02/17/23 Acetaminophen [Tylenol] 1,000 mg PO TID 02/17/23 02/17/23 Atorvastatin [Lipitor] 20 mg ORAL DAILY 02/17/23 02/17/23 Cholecalciferol [Vitamin D3] 25 mcg PO DAILY 02/17/23 02/17/23 Diclofenac Sodium 1% Gel [Voltaren 1 applic TOP DAILY PRN 02/17/23 02/17/23 Gel] Ferrous Sulfate [Feosol] 325 mg PO DAILY 02/17/23 02/17/23 Gabapentin [Neurontin] 600 mg PO TID 02/17/23 02/17/23 Melatonin 3 mg PO HS 02/17/23 02/17/23 Omeprazole Magnesium 20 mg PO DAILY 02/17/23 02/17/23 Prazosin [Minipress] 1 mg PO QPM 02/17/23 02/17/23 Saliva Stimulant Comb. No.7 1 applic MM DAILY 02/17/23 02/17/23 [Biotene Oralbalance] Sertraline HCl 100 mg PO QPM 02/17/23 02/17/23 bisacodyL [Onelax] 10 mg RC DAILY PRN 02/17/23 02/17/23 oxyCODONE [Roxicodone] 5 mg ORAL Q4HR PRN 02/17/23 02/17/23 polyethylene glycoL 3350 [Miralax] 17 gm PO DAILY PRN 02/17/23 02/17/23 - Allergies Allergies/Adverse Reactions: Allergies Allergy/AdvReac Type Severity Reaction Status Date / Time No Known Drug Allergies Allergy Verified 02/17/23 15:37 - Social History Does the pt smoke?: Yes Smoking Status: Current every day smoker - POLST Patient has POLST: No POLST Status: Full Code PD ED PE NORMAL - General General: Alert and oriented X 3, No acute distress, Well developed/nourished - HEENT HEENT: Atraumatic - Neck Neck: Supple, no meningeal sign - Cardiac Cardiac: RRR, No murmur - Respiratory Respiratory: No respiratory distress, Clear bilaterally - Abdomen Abdomen: Soft, Non tender, Non distended - Back Back: No spinal TTP - Derm Derm: Warm and dry - Extremities Extremities: Other (Dressing to left hip that is clean, dry intact with no erythema or swelling) - Neuro Neuro: Alert and oriented X 3, table cover folder 2-12 intact, No motor deficit, No sensory deficit, Normal speech Results - Vitals Vitals: Vital Signs - 24 hr 02/17/23 02/17/23 02/17/23 15:29 16:36 22:00 Temperature 36.5 C Heart Rate 61 63 75 Respiratory 10 L 14 18 Rate Blood Pressure 128/65 132/77 H 106/57 L O2 Saturation 100 100 100 02/18/23 01:12 Temperature Heart Rate 73 Respiratory 16 Rate Blood Pressure 110/62 O2 Saturation 99 Oxygen O2 Source Room air - EKG (time done) 1557 EKG releavant findings:: EKG personally interpreted by author of this note. Relevant findings are: Rate 65, normal sinus rhythm, right bundle branch block, no STEMI Rate: Rate (enter#) (65) Rhythm: NSR Intervals: No: Prolonged QT Ischemia: No: ST elevation c/w ischemia - Labs Labs: Laboratory Tests 02/17/23 02/17/23 02/17/23 16:19 16:39 17:00 WBC 6.4 RBC 3.25 L Hgb 10.4 L Hct 33.1 L MCV 101.8 H MCH 32.0 H MCHC 31.4 L RDW 15.8 H Plt Count 244 MPV 11.5 H Neut # (Auto) 4.5 Lymph # (Auto) 1.1 L [place] # (Auto) 0.7 Eos # (Auto) 0.1 Baso # (Auto) 0.0 Absolute Nucleated RBC 0.00 Nucleated RBC % 0.0 Manual Slide Review Indicated Platelet Estimate NORMAL (130-450,000) Platelet Morphology NORMAL APPEARANCE RBC Morph Micro Appear NORMAL APPEARANCE D-Dimer Sodium 137 Potassium 4.2 Chloride 107 Carbon Dioxide 22 Anion Gap 8.0 BUN 17 Creatinine 0.8 Estimated GFR (MDRD) 94 Glucose 88 Calcium 8.1 L Total Bilirubin 0.9 AST 16 ALT 15 Alkaline Phosphatase 93 Total Protein 6.4 L Albumin 2.9 L Globulin 3.5 Albumin/Globulin Ratio 0.8 L Lipase 29 Urine Color YELLOW Urine Clarity SL. CLOUDY Urine pH 6.5 Ur Specific [place] <=1.005 Urine Protein NEGATIVE Urine Glucose (UA) NEGATIVE Urine Ketones NEGATIVE Urine Occult Blood SMALL H Urine Nitrite NEGATIVE Urine Bilirubin NEGATIVE Urine Urobilinogen 1 (NORMAL) Ur Leukocyte Esterase NEGATIVE Urine RBC 0-5 Urine WBC 0-3 Ur Squamous Epith Cells RARE Squamous Urine Bacteria Rare Ur Microscopic Review INDICATED Urine Culture Comments NOT INDICATED 02/17/23 19:48 WBC RBC Hgb Hct MCV MCH MCHC RDW Plt Count MPV Neut # (Auto) Lymph # (Auto) [place] # (Auto) Eos # (Auto) Baso # (Auto) Absolute Nucleated RBC Nucleated RBC % Manual Slide Review Platelet Estimate Platelet Morphology RBC Morph Micro Appear D-Dimer 782.0 H Sodium Potassium Chloride Carbon Dioxide Anion Gap BUN Creatinine Estimated GFR (MDRD) Glucose Calcium Total Bilirubin AST ALT Alkaline Phosphatase Total Protein Albumin Globulin Albumin/Globulin Ratio Lipase Urine Color Urine Clarity Urine pH Ur Specific [place] Urine Protein Urine Glucose (UA) Urine Ketones Urine Occult Blood Urine Nitrite Urine Bilirubin Urine Urobilinogen Ur Leukocyte Esterase Urine RBC Urine WBC Ur Squamous Epith Cells Urine Bacteria Ur Microscopic Review Urine Culture Comments PD Medical Decision Making - ED course Complexity details: reviewed results, re-evaluated patient ED course: Pt with recent L hip surgery presenting from adult home for AMS. History from EMS is limited but per report pt has been altered for 1 day. Pt received IV fluids from EMS. On arrival he answers some questions. Workup initiated including labs, UA, imaging. EKG with NSR. Labs with mild anemia of 10.4 (02/08/23 Hemoglobin from [facility] was 11.1). No sign of infection on UA or chest xray. Incision looks well. No focal deficits. No reported seizure activity. Pt's mentation quickly improved. Initially very soft spoke but then able to give much more clear answers including that his surgery was only few days ago (vs EMS report of 1 month ago). Ddimer obtained due to unclear cause for AMS and recent hospitalization. CTA obtained which is negative for PE. Pt appears to be at his baseline here. Plan to transfer back to adult home. Departure - Departure Disposition: 01 Home, Self Care Clinical Impression: History of recent hospitalization Altered mental status Qualifiers: Altered mental status type: delirium Qualified Code(s): R41.0 - Disorientation, unspecified Condition: Stable Instructions: ED Altered Loc Comments: You were evaluated for confusion. During your ED course your confusion has improved and now appear to be back to your regular self. It is unclear what was causing your confusion earlier. Could be related to a number of factors including dehydration, medications, recent hospitalization, and recent surgery. Please take your medications only as directed. I would recommend close follow- up with your primary care provider. If you develop any worsening symptoms erika valentine return to the emergency department. Discharge Date/Time: 02/18/23 01:13
--- NOTE | 2023-02-17 23:02 | CT Report ---
PROCEDURE: ANGIO CHEST W/WO INDICATIONS: AMS/recent surgery CONTRAST: Omni 300 80ml TECHNIQUE: After the administration of intravenous contrast, 2 mm axial images were acquired from the pulmonary apices to the posterior costophrenic angles during the arterial phase. In addition, 1 mm lung kernel and 5 mm soft tissue kernel reconstructions were performed. 3-dimensional coronal oblique maximum int ensity projection (MIP) reformats, 8 mm axial MIP, and 5 mm coronal and sagittal MPR reformats were t hen performed through the thorax. For radiation dose reduction, the following was used: automated exp osure control, adjustment of mA and/or kV according to patient size. COMPARISON: Chest x-ray 02/17/2023 FINDINGS: Image quality: Excellent. Large vessels: No filling defects within the opacified pulmonary arteries, accounting for motion and contrast timing. No evidence of acute aortic syndrome or aortic aneurysm. Lungs and pleura: No consolidation. No pneumothorax. 1 cm right lower lobe nodule series 7 image 189 . No priors are available for comparison. Dependent changes are present within the bases bilaterally with minimal left effusion.. Mediastinum: Heart size is normal. No pericardial effusion. No large vessel abnormality. No mediastin al adenopathy by size criteria. Chest wall and lower neck: Thyroid is unremarkable. No axillary or supraclavicular adenopathy by size . Bones: No aggressive osseous abnormality. Upper Abdomen: Calcifications are present within the pancreas suspected to be related to prior pancre atitis/inflammation. IMPRESSION: No pulmonary embolism. Dependent changes/minimal effusions. Reviewed by: Rupali Austin MD on 02/17/2023 11:01 PM PDT Approved by: Rupali Austin MD on 02/17/2023 11:01 PM PDT Station ID: [id number]
[2023-02-17] MEDS ORDERED: iohexoL-300 100 ML VIAL IVP ONE (23:39)
[2023-02-18] MEDS ORDERED: LORazepam 2 MG/ML VIAL IVP STA (00:11)
[2023-02-18 01:19] VITALS: BP 110/62
== END 2023-02-18 01:13 | disposition home or self-care (01) ==
LOC: EDUNIT# → ED 15:19
DX: R41.0 Disorientation, unspecified (principal); I10 Essential (primary) hypertension; E78.00 Pure hypercholesterolemia, unspecified; F17.200 Nicotine dependence, unspecified, uncomplicated; Z79.82 Long term (current) use of aspirin; Z79.899 Other long term (current) drug therapy
CPT/HCPCS: 36415; 70450; 71045; 71275; 80053; 81001; 83690; 85025; 85379; 93005; 96374; 99283; 99284; J2060; Q9967; 81003; 87086

== ENCOUNTER 2023-02-18 00:49 | Outpatient (CLI) | payer MEDICARE, MEDICAID | END 2023-02-18 23:59 | disposition home or self-care (01) | LOC: EMS 00:49 | PROVIDERS: ATTEND Emergency Medicine | DX: F05 Delirium due to known physiological condition (principal) | CPT/HCPCS: A0425; A0428 ==

== ENCOUNTER 2023-03-30 22:11 | Outpatient (CLI) | payer MEDICARE, MEDICAID | END 2023-03-30 23:59 | disposition EMS.NT | LOC: EMS 22:11 | DX: Z03.89 Encounter for observation for other suspected diseases and conditions ruled out (principal) ==

== ENCOUNTER 2023-04-27 05:44 | Outpatient (CLI) | payer MEDICARE, MEDICAID | END 2023-04-27 23:59 | disposition EMS.NT | LOC: EMS 05:44 | DX: Z03.89 Encounter for observation for other suspected diseases and conditions ruled out (principal) ==

== ENCOUNTER 2023-06-24 00:25 | Outpatient (CLI) | payer MEDICARE, MEDICAID | END 2023-06-24 00:26 | disposition EMS.NT | LOC: EMS 00:25 | DX: Z03.89 Encounter for observation for other suspected diseases and conditions ruled out (principal) ==

== ENCOUNTER 2023-07-15 08:24 | Outpatient (CLI) | payer MEDICARE, MEDICAID | END 2023-07-15 08:25 | disposition critical access hospital (66) | LOC: EMS 08:24 | DX: R11.0 Nausea (principal); R46.4 Slowness and poor responsiveness; R53.83 Other fatigue | CPT/HCPCS: A0425; A0429 ==

== ENCOUNTER 2023-07-15 08:36 | Emergency (ER) | payer MEDICARE, MEDICAID ==
--- NOTE | 2023-07-15 08:56 | ED Physician Documentation ---
PD HPI SYNCOPE - Stated complaint Stated Complaint: SYNCOPE - Chief complaint Chief Complaint: Neuro - History obtained from History obtained from: Patient, EMS, Caregiver (The patient states he was feeling weak and tired going to breakfast after awakening this morning. He was noted to be sleepy by caregivers. He had a syncopal episode in the dining gonzalez. Not clear report on fall/injury. Complains of neck and hip pain bilaterally. He claims nausea, cough, dyspnea.) - History of Present Illness Witnessed: Witnessed Timing - onset: Today Duration: Seconds Preceding symptoms: Dyspnea (with cough yesterday into today), Nausea / vomiting, Light headed, Generalized weakness (onset today). No: Chest pain Associated symptoms: No: Seizure, Chest pain, Abdominal pain Contributing factors: No: Recent med change, Decreased PO intake Injury occurred: Neck injury, Other (both hips hurt.) Similar symptoms before: Has not had sx before Recently seen: Not recently seen (does not appear any recent med changes by OCT.) Review of Systems Constitutional: denies: Fever Cardiac: denies: Chest pain / pressure Respiratory: reports: Dyspnea, Cough GI: reports: Nausea. denies: Abdominal Pain, Vomiting Skin: denies: Abrasion (s), Laceration (s) Neurologic: reports: Generalized weakness (today), Syncope (this morning). denies: Focal weakness PD PAST MEDICAL HISTORY - Past Medical History Cardiovascular: None, Hypertension, High cholesterol Respiratory: None Neuro: Seizure disorder Endocrine/Autoimmune: None GI: None : None HEENT: None Psych: None Musculoskeletal: None Derm: None - Present Medications Home Medications: Ambulatory Orders Medication Instructions Recorded Confirmed Aspirin Chewable [St Price 81 mg PO DAILY 10/02/18 07/15/23 Aspirin] Metoprolol Tartrate [Lopressor] 12.5 mg PO BID #60 tablet 10/04/18 07/15/23 levETIRAcetam [Keppra] 750 mg PO BID #180 tablet 10/04/18 07/15/23 Acetaminophen [Tylenol] 1,000 mg PO TID 02/17/23 07/15/23 Atorvastatin [Lipitor] 20 mg ORAL DAILY 02/17/23 07/15/23 Cholecalciferol [Vitamin D3] 25 mcg PO DAILY 02/17/23 07/15/23 Diclofenac Sodium 1% Gel [Voltaren 1 applic TOP DAILY PRN 02/17/23 07/15/23 Gel] Ferrous Sulfate [Feosol] 325 mg PO DAILY 02/17/23 07/15/23 Gabapentin [Neurontin] 600 mg PO TID 02/17/23 07/15/23 Melatonin 3 mg PO HS 02/17/23 07/15/23 Omeprazole Magnesium 20 mg PO DAILY 02/17/23 07/15/23 Prazosin [Minipress] 1 mg PO QPM 02/17/23 07/15/23 Saliva Stimulant Comb. No.7 1 applic MM DAILY 02/17/23 07/15/23 [Biotene Oralbalance] Sertraline HCl 100 mg PO QPM 02/17/23 07/15/23 bisacodyL [Onelax] 10 mg RC DAILY PRN 02/17/23 07/15/23 oxyCODONE [Roxicodone] 5 mg ORAL Q4HR PRN 02/17/23 07/15/23 polyethylene glycoL 3350 [Miralax] 17 gm PO DAILY PRN 02/17/23 07/15/23 - Allergies Allergies/Adverse Reactions: Allergies Allergy/AdvReac Type Severity Reaction Status Date / Time No Known Drug Allergies Allergy Verified 02/17/23 15:37 - Social History Does the pt smoke?: Yes Smoking Status: Current every day smoker - POLST Patient has POLST: No POLST Status: Full Code PD ED PE NORMAL - Vitals Vital signs reviewed: Yes - General General: Alert and oriented X 3, No acute distress (but does seem sleepy), Well developed/nourished - HEENT HEENT: Atraumatic, Pharynx benign - Neck Neck: Supple, no meningeal sign, No bony TTP - Cardiac Cardiac: RRR, No murmur - Respiratory Respiratory: Clear bilaterally - Abdomen Abdomen: Soft, Non tender, Non distended - Derm Derm: Warm and dry. No: Normal color (somewhat pale) - Extremities Extremities: No edema, No calf tenderness / cord, Other (pain bilateral hips, with guarded ROM and pain on right hip with passive movement. he can move left okay but hurts. ) - Neuro Neuro: Alert and oriented X 3, No motor deficit, No sensory deficit Eye Opening: To Voice Motor: Obeys Commands Verbal: Oriented GCS Score: 14 Results - Vitals Vitals: Vital Signs - 24 hr 07/15/23 07/15/23 07/15/23 08:42 09:03 11:54 Temperature 36.5 C Heart Rate 59 L 58 L Heart Rate [ Sitting] Heart Rate [ Supine] Respiratory 16 20 13 Rate Blood Pressure 114/65 114/65 109/62 Blood Pressure [Sitting] Blood Pressure [Supine] O2 Saturation 96 98 100 07/15/23 07/15/23 07/15/23 12:38 13:31 14:33 Temperature 37 C Heart Rate 68 62 Heart Rate [ 68 Sitting] Heart Rate [ 65 Supine] Respiratory 20 20 Rate Blood Pressure 93/64 128/74 Blood Pressure 86/72 L [Sitting] Blood Pressure 96/58 L [Supine] O2 Saturation 100 100 07/15/23 15:43 Temperature 37 C Heart Rate 83 Heart Rate [ Sitting] Heart Rate [ Supine] Respiratory 20 Rate Blood Pressure 127/85 H Blood Pressure [Sitting] Blood Pressure [Supine] O2 Saturation 100 Oxygen O2 Source Room air - EKG (time done) 08:49 EKG releavant findings:: EKG personally interpreted by author of this note. Relevant findings are: Rate: Rate (enter#) (59) Rhythm: NSR [place]: Normal Intervals: Normal ND QRS: Normal Ischemia: Normal ST segments. No: ST elevation c/w ischemia, ST depression Compare to prior EKG: Unchanged from prior EKG (02/17/23) - Labs Labs: Laboratory Tests 07/15/23 07/15/23 07/15/23 10:00 10:00 11:10 WBC 7.4 RBC 3.70 L Hgb 11.9 L Hct 38.9 L MCV 105.1 H MCH 32.2 H MCHC 30.6 L RDW 14.1 Plt Count MPV Not Reportable Neut # (Auto) 5.0 Lymph # (Auto) 1.7 [place] # (Auto) 0.6 Eos # (Auto) 0.0 Baso # (Auto) 0.0 Absolute Nucleated RBC 0.00 Nucleated RBC % 0.0 Manual Slide Review Indicated WBC Morphology NORMAL APPEARANCE Platelet Morphology PLATELET CLUMPING RBC Morph Micro Appear 1+ ANISOCYTOSIS Sodium 137 Potassium 4.6 H Chloride 103 Carbon Dioxide 28 Anion Gap 6.0 BUN 26 H Creatinine 1.2 Estimated GFR (MDRD) 59 L Glucose 113 H Calcium 9.6 Magnesium 1.9 Total Bilirubin 0.5 AST 23 ALT 20 Alkaline Phosphatase 117 Troponin I High Sens 6.6 Total Protein 6.8 Albumin 4.1 Globulin 2.7 Albumin/Globulin Ratio 1.5 Lipase 36 Nasal Adenovirus (PCR) NOT DETECTED Nasal B. parapertussis DNA (PCR) NOT DETECTED Nasal Coronavir 229E PCR NOT DETECTED Nasal Coronavir HKU1 PCR NOT DETECTED Nasal Coronavir NL63 PCR NOT DETECTED Nasal Coronavir OC43 PCR NOT DETECTED Nasal Enterovir/Rhinovir PCR NOT DETECTED Nasal Influenza B PCR NOT DETECTED Nasal Influenza A PCR NOT DETECTED Nasal Parainfluen 1 PCR NOT DETECTED Nasal Parainfluen 2 PCR NOT DETECTED Nasal Parainfluen 3 PCR NOT DETECTED Nasal Parainfluen 4 PCR NOT DETECTED Nasal RSV (PCR) NOT DETECTED Nasal B.pertussis DNA PCR NOT DETECTED Nasal C.pneumoniae (PCR) NOT DETECTED Sami Human Metapneumo PCR NOT DETECTED Nasal M.pneumoniae (PCR) NOT DETECTED Nasal SARS-CoV-2 (PCR) NOT DETECTED - Rads (name of study) chest xray Relevant Findings:: Prelim report reviewed, EMP independent interpretation of test (no infiltrates nor acute changes. ) head CT Relevant Findings:: Prelim report reviewed (no ICH nor acute findings.), EMP independent interpretation of test cervical spine CT Relevant Findings:: Prelim report reviewed (arthritic changes, prior surgical changes. No acute fractures nor hardware displacement. ), EMP independent interpretation of test pelvic CT Relevant Findings:: Prelim report reviewed (prior right hip replacement without acute changes. Left hip with arthritic changes but no fractures. ), EMP independent interpretation of test PD Medical Decision Making - ED course Complexity details: reviewed results (head and cervical CTs as well as pelvic without acute injury nor hardware displacement. CXR without infiltrates nor acute process. CBC showing normal WBC. Na and other chemistries normal. No acute cause of altered mentation nor syncope. Viral panel negative. ), re-evaluated patient (he was given some IV fluids here and seemed brighter and more promptly conversant. He is feeling okay. No notable cause of syncope found. Presume weakenss and low blood pressure. Uncertain cause. Underhydration perhaps. ), considered differential (general weak with some cough/dyspnea and lightheaded started some evening into more this AM. Weak to dining gonzalez and had syncope there. Unreported if fall per se. Pain neck and hips. Slightly low BP enroute. No IV. Can get imaging for hips/chest/head/neck. Labs and resp viral panel. give IV fluids. ), d/w patient Departure - Departure Disposition: 01 Home, Self Care Clinical Impression: Weakness, Syncope Condition: Stable Record reviewed to determine appropriate education?: Yes Instructions: ED Fainting Unkn Cause Comments: It is unclear the cause of your fainting episode. Your blood pressure was low on presentation and with initially standing up. It seems improved with IV fluids. Consideration would be under hydration. However you did talk about feeling generally unwell today. Consideration could be an early illness associated with this. We did look on chest x-ray and there is no signs of pneumonia. Respiratory viral panel was negative for the major viral illnesses. Blood count and white count was normal with minimal anemia but normal white count. Electrolytes were good as well. No signs of abnormal heart rhythm and blood test was negative for heart attack or heart failure. At this point I would suggest continuing usual medicines and maintaining good hydration and see how you feel over the next few days. Return as needed. Forms: PCP List Discharge Date/Time: 07/15/23 15:43
[2023-07-15] MEDS ORDERED: SODIUM CHLORIDE 0.9% 1,000 ML IV STA (09:19)
--- NOTE | 2023-07-15 09:57 | XRAY Report ---
PROCEDURE: Hips 2V BILAT INDICATIONS: syncope/fall, hip pain R>L TECHNIQUE: An AP view the pelvis and bilateral AP and frog-leg lateral views of the hips were acquir ed. COMPARISON: None. FINDINGS: Bones: No fractures or dislocations. No suspicious bony lesions. Expected appearance of left hip arthroplasty. No evidence of hardware failure or loosening. Advanced degenerative arthritis of the ri ght hip. Soft tissues: No suspicious soft tissue calcifications or masses. IMPRESSION: 1. Advanced degenerative arthritis of the right hip. 2. Expected appearance of left hip arthroplasty. 3. No acute fracture or dislocation identified. Reviewed by: Delfino Thrasher MD on 07/15/2023 9:56 AM PST Approved by: Delfino Thrasher MD on 07/15/2023 9:56 AM PST Station ID: [id number]
--- NOTE | 2023-07-15 09:58 | XRAY Report ---
PROCEDURE: Chest 1 View X-Ray INDICATIONS: cough, weakness TECHNIQUE: One view of the chest was acquired. COMPARISON: 02/17/2023. FINDINGS: Surgical changes and devices: Cervical fusion hardware. Lungs and pleura: No pleural effusions or pneumothorax. Lungs are clear. Mediastinum: Mediastinal contours appear normal. Heart size is normal. Bones and chest wall: No suspicious bony lesions. Overlying soft tissues appear unremarkable. IMPRESSION: No acute cardiopulmonary process. Reviewed by: Delfino Thrasher MD on 07/15/2023 9:57 AM PST Approved by: Delfino Thrasher MD on 07/15/2023 9:57 AM [facility] Station ID: [id number]
[2023-07-15 10:07] LABS: BASOPHILS % (AUTO) 0.1 %; EOSINOPHILS % (AUTO) 0.3 %; HCT - HEMATOCRIT 38.9 % (42.0-52.0); HGB - HEMOGLOBIN 11.9 g/dL (14.0-18.0); LYMPHOCYTES # (AUTO) 1.7 10^3/uL (1.5-3.5); LYMPHOCYTES % (AUTO) 22.6 %; MEAN CORPUSCULAR HEMOGLOBIN 32.2 pg (27.0-31.0); MEAN CORPUSCULAR HGB CONC 30.6 g/dL (32.0-36.0); MEAN CORPUSCULAR VOLUME 105.1 fL (80.0-94.0); MONOCYTES # (AUTO) 0.6 10^3/uL (0.0-1.0); MONOCYTES % (AUTO) 8.6 %; RED CELL DISTRIBUTION WIDTH 14.1 % (12.0-15.0); WHITE BLOOD COUNT 7.4 x10^3/uL (4.8-10.8)
[2023-07-15 10:14] LABS: SLIDE REVIEW? Indicated
[2023-07-15 10:32] LABS: ALBUMIN 4.1 g/dL (3.2-5.5); ALBUMIN/GLOBULIN RATIO 1.5 (1.0-2.2); BILIRUBIN,TOTAL 0.5 mg/dL (0.2-1.0); CALCIUM 9.6 mg/dL (8.5-10.3); CREATININE 1.2 mg/dL (0.6-1.3); MAGNESIUM 1.9 mg/dL (1.7-2.3); POTASSIUM 4.6 mmol/L (3.5-4.5); TOTAL PROTEIN 6.8 g/dL (6.4-8.9)
[2023-07-15 10:37] LABS: PLATELET MORPHOLOGY PLATELET CLUMPING (NORMAL); TROPONIN I HIGH SENSITIVITY 6.6 ng/L (2.3-19.7)
[2023-07-15 10:38] LABS: RBC MORPHOLOGY (MULTIPLE) 1+ ANISOCYTOSIS (NORMAL); WBC MORPHOLOGY (MULTIPLE) NORMAL APPEARANCE (NORMAL)
--- NOTE | 2023-07-15 10:58 | CT Report ---
PROCEDURE: HEAD WO INDICATIONS: syncope/fall/headache TECHNIQUE: Noncontrast 4.5 mm thick angled axial sections acquired from the foramen magnum to the vertex. For r adiation dose reduction, the following was used: automated exposure control, adjustment of mA and/or kV according to patient size. COMPARISON: 02/17/2023 FINDINGS: Image quality: Good CSF spaces: Basal cisterns are patent. Lateral ventricles are symmetric. Volume: Vascular calcifications. Periventricular white matter disease is commonly seen with chronic m icroangiopathy. Volume loss is present. These findings are moderate to severe. Brain: No acute intracranial hemorrhage. No gross loss of freed-white differentiation. Craniofacial structures: Mild (no sinus mucosal thickening. Partially empty sella. IMPRESSION: No acute intracranial abnormality. Reviewed by: Cristi Puri MD on 07/15/2023 10:57 AM [facility] Approved by: Cristi Puri MD on 07/15/2023 10:57 AM [facility] Station ID: [id number]
--- NOTE | 2023-07-15 11:10 | CT Report ---
PROCEDURE: CERVICAL SPINE WO INDICATIONS: syncope/fall with neck pain TECHNIQUE: Noncontrast 3 mm thick sections acquired from the skull base to the T4 level. Sagittal and coronal r eformats were then constructed. For radiation dose reduction, the following was used: automated exp osure control, adjustment of mA and/or kV according to patient size. COMPARISON: None. FINDINGS: Image quality: Excellent. Bones: There is extensive surgical fusion of cervical and upper thoracic spine extending from C2 thro ugh T2 level. There is straightening of normal cervical lordosis. No gross hardware loosening or fail ure. There is no acute cervical spine fractures or dislocations. Near-complete bony fusion at C6-7 an d C7-T1 levels are seen. Anterior branching osteophyte formation throughout cervical spine is noted. Degenerative endplate changes are noted throughout cervical spine. Bilateral facet hypertrophic lynn es also noted. No significant central canal stenosis. Visualized superior ribs are intact. Soft tissues: Prevertebral soft tissues are normal in thickness. No paravertebral hematomas. No ap ical pneumothoraces. IMPRESSION: 1. Extensive posterior surgical fusion of cervical spine and upper thoracic spine as described above. No gross hardware loosening or failure. 2. No acute cervical spine fracture or dislocation. Degenerative disc disease and bilateral facet hyp ertrophic changes throughout cervical spine. Reviewed by: Ron Martin MD on 07/15/2023 11:09 AM PST Approved by: Ron Martin MD on 07/15/2023 11:09 AM PST Station ID: [id number]
--- NOTE | 2023-07-15 11:14 | CT Report ---
PROCEDURE: PELVIS WO INDICATIONS: narinder hip/pelvic pain post fall/syncope TECHNIQUE: Noncontrast 3 mm axial sections acquired through the bony pelvis, with coronal and sagittal reformatt ing. For radiation dose reduction, the following was used: automated exposure control, adjustment of mA and/or kV according to patient size. COMPARISON: Right hip radiograph from the same day. FINDINGS: Image quality: Diagnostic. Significant beam hardening artifacts are noted.. Bones: Patient is status post prior left total hip arthroplasty with significant beam hardening layla facts from left hip partially limits the evaluation. No gross hardware loosening or failure is seen. Pelvic ring is grossly intact. Severe right hip joint osteoarthritic changes are seen. No evidence of avascular necrosis of femoral head. Degenerative disc disease in visualized lower lumbar spine is no louann. No acute pelvic or hip fracture. No acute periprosthetic fracture. No suspicious bony lesions. Soft tissues: There is no pelvic free fluid or free air. No abnormal bowel wall thickening. Bladder wall thickness is normal. There is no soft tissue mass or drainable fluid collection. No gross soft t issue hematoma or intramuscular hematoma. No abnormal soft tissue calcifications. IMPRESSION: 1. Prior left total hip arthroplasty. No evidence of hardware loosening or failure. No acute peripros thetic fracture. 2. No acute pelvic fracture or dislocation. Severe right hip joint osteoarthritis. No evidence of faustino scular necrosis. 3. No gross pelvic soft tissue abnormalities. Reviewed by: Ron Martin MD on 07/15/2023 11:12 AM PST Approved by: Ron Martin MD on 07/15/2023 11:12 AM PST Station ID: [id number]
[2023-07-15 11:59] VITALS: O2SAT 100
[2023-07-15 12:15] LABS: B. PARAPERTUSSIS- RESP PCR PAN NOT DETECTED; B. PERTUSSIS- RESP PCR PANEL NOT DETECTED; C. PNEUMONIAE- RESP PCR PANEL NOT DETECTED; CORONAVIRUS 229E-RESP PCR NOT DETECTED; CORONAVIRUS HKU1-RESP PCR NOT DETECTED; CORONAVIRUS NL63-RESP PCR NOT DETECTED; CORONAVIRUS OC43-RESP PCR NOT DETECTED; HUMAN METAPNEUMOVIRUS NOT DETECTED; INFLUENZA A- RESP PCR PANEL NOT DETECTED; INFLUENZA B - RESP PCR PANEL NOT DETECTED; M. PNEUMONIAE- RESP PCR PANEL NOT DETECTED; PARAINFLUENZA VIRUS 1 NOT DETECTED; PARAINFLUENZA VIRUS 2 NOT DETECTED; PARAINFLUENZA VIRUS 3 NOT DETECTED; PARAINFLUENZA VIRUS 4 NOT DETECTED; RHINOVIRUS/ENTEROVIRUS NOT DETECTED; RSV- RESP PCR PANEL NOT DETECTED; SARS-CoV-2 -RESP PCR PANEL NOT DETECTED
[2023-07-15] MEDS ORDERED: SODIUM CHLORIDE 0.9% 500 ML IV STA (14:39)
[2023-07-15 15:45] VITALS: BP 127/85
== END 2023-07-15 15:43 | disposition home or self-care (01) ==
LOC: EDUNIT# → ED 08:36
DX: R55 Syncope and collapse (principal); R53.1 Weakness; I10 Essential (primary) hypertension; F17.200 Nicotine dependence, unspecified, uncomplicated; Z20.822 Contact with and (suspected) exposure to COVID-19
CPT/HCPCS: 36415; 80053; 83690; 83735; 84484; 85025; 87633; 93005; 96360; 99284

== ENCOUNTER 2023-07-15 15:41 | Outpatient (CLI) | payer MEDICARE, MEDICAID | END 2023-07-15 23:59 | disposition home or self-care (01) | LOC: EMS 15:41 | PROVIDERS: ATTEND Emergency Medicine | DX: R53.1 Weakness (principal); E86.0 Dehydration; Z74.01 Bed confinement status | CPT/HCPCS: A0425; A0428 ==

== ENCOUNTER 2023-07-17 16:53 | Outpatient (CLI) | payer MEDICARE | END 2023-07-17 23:59 | disposition EMS.NT | LOC: EMS 16:53 | DX: Z03.89 Encounter for observation for other suspected diseases and conditions ruled out (principal) ==

== ENCOUNTER 2023-07-31 13:45 | Outpatient (CLI) | payer MEDICARE, MEDICAID | END 2023-07-31 13:46 | disposition EMS.NT | LOC: EMS 13:45 | DX: Z03.89 Encounter for observation for other suspected diseases and conditions ruled out (principal) ==

== ENCOUNTER 2023-08-05 07:05 | Outpatient (CLI) | payer MEDICARE, MEDICAID | END 2023-08-05 23:59 | disposition critical access hospital (66) | LOC: EMS 07:05 | DX: S00.81XA Abrasion of other part of head, initial encounter (principal); M25.551 Pain in right hip; M25.552 Pain in left hip; W07.XXXA Fall from chair, initial encounter; Y92.099 Unspecified place in other non-institutional residence as the place of occurrence of the external cause | CPT/HCPCS: A0425; A0429 ==

== ENCOUNTER 2023-08-05 07:23 | Emergency (ER) | payer MEDICARE, MEDICAID ==
--- NOTE | 2023-08-05 08:28 | XRAY Report ---
PROCEDURE: Hip w/Pelvis 2-3V LT INDICATIONS: fall from bed/pain TECHNIQUE: AP pelvis with lateral view(s) of the left hip(s). COMPARISON: None. FINDINGS: Bones: No fractures or dislocations. No suspicious bony lesions. Left hip arthroplasty. Hardware is intact without evidence of hardware fracture or periprosthetic lucency to suggest loosening. Sever e right hip arthritic change. Soft tissues: No suspicious soft tissue calcifications or masses. IMPRESSION: No visualized acute fracture or dislocation. However, occult injury cannot be excluded. Recommend kane rt interval imaging follow-up in 7-10 days as clinically indicated for additional evaluation. Reviewed by: Rupali Austin MD on 08/05/2023 8:26 AM [facility] Approved by: Rupali Austin MD on 08/05/2023 8:26 AM PST Station ID: [id number]
--- NOTE | 2023-08-05 08:28 | XRAY Report ---
PROCEDURE: Shoulder 3 View BILAT INDICATIONS: fall from bed TECHNIQUE: 3 views of the shoulder were acquired. COMPARISON: None. FINDINGS: Bones: No fractures or dislocations. No suspicious bony lesions. Visualized ribs appear intact. V isualized neck fusion hardware. Soft tissues: No suspicious soft tissue calcifications. The visualized lungs are within normal limi ts. IMPRESSION: No visualized acute fracture or dislocation. However, occult injury cannot be excluded. Recommend kane rt interval imaging follow-up in 7-10 days as clinically indicated for additional evaluation. Reviewed by: Rupali Austin MD on 08/05/2023 8:27 AM [facility] Approved by: Rupali Austin MD on 08/05/2023 8:27 AM [facility] Station ID: [id number]
--- NOTE | 2023-08-05 09:44 | CT Report ---
PROCEDURE: HEAD WO INDICATIONS: fall from bed/dementia TECHNIQUE: Noncontrast 4.5 mm thick angled axial sections acquired from the foramen magnum to the vertex. For r adiation dose reduction, the following was used: automated exposure control, adjustment of mA and/or kV according to patient size. COMPARISON: None. FINDINGS: Image quality: Excellent. CSF spaces: Basal cisterns are patent. No extra-axial fluid collections. Ventricles are normal in size and shape. Brain: No midline shift. No intracranial masses or hemorrhage. Moncada-white matter interface is norm al. Skull and face: Calvarium and visualized facial bones are intact, without suspicious lesions. Sinuses: Visualized sinuses and mastoids are clear. IMPRESSION: No acute intracranial abnormality. Reviewed by: Boston Pitt MD on 08/05/2023 9:42 AM PST Approved by: Boston Pitt MD on 08/05/2023 9:42 AM [facility] Station ID: [id number]
--- NOTE | 2023-08-05 09:46 | CT Report ---
PROCEDURE: CERVICAL SPINE WO INDICATIONS: fall from bed/dementia TECHNIQUE: Noncontrast 3 mm thick sections acquired from the skull base to the T4 level. Sagittal and coronal r eformats were then constructed. For radiation dose reduction, the following was used: automated exp osure control, adjustment of mA and/or kV according to patient size. COMPARISON: None. FINDINGS: Image quality: Excellent. Bones: No fractures or dislocations. Posterior fusion hardware at C2-T2 is present, and is intact. T here are lucencies within the odontoid process of C2 with associated soft tissue density extending po steriorly into the epidural space, contributing to severe canal stenosis. Multilevel disc space narro wing and endplate osteophyte formation are present. Visualized superior ribs are intact. Soft tissues: Prevertebral soft tissues are normal in thickness. No paravertebral hematomas. No ap ical pneumothoraces. IMPRESSION: 1. No acute fracture. No osseous lesion. If symptoms and/or clinical suspicion for pathology continue , further assessment with MRI or bone scan is recommended for further assessment. 2. 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 Differential consi derations include rheumatoid arthritis versus CPPD arthropathy. Reviewed by: Boston Pitt MD on 08/05/2023 9:45 AM [facility] Approved by: Boston Pitt MD on 08/05/2023 9:45 AM PST Station ID: [id number]
--- NOTE | 2023-08-05 10:05 | ED Physician Documentation ---
PD HPI HEAD INJURY - Stated complaint Stated Complaint: GLF/HEAD INJURY - Chief complaint Chief Complaint: Ext Problem - History obtained from History obtained from: Patient, EMS - Additional information Additional information: Patient is a 77-year-old male with a history of dementia from an adult family home presenting for evaluation after an unwitnessed fall. Patient states he was trying to get into his power chair when he slipped and fell from the bed. He does not abrasion to the head. He does not take a blood thinner.Patient is unclear of the month and year which appears to be his baseline. Review of Systems Unable to obtain: Dementia PD PAST MEDICAL HISTORY - Past Medical History Cardiovascular: None, Hypertension, High cholesterol Respiratory: None Neuro: Seizure disorder Endocrine/Autoimmune: None GI: None : None HEENT: None Psych: None Musculoskeletal: None Derm: None - Past Surgical History Past Surgical History: No - Present Medications Home Medications: Ambulatory Orders Medication Instructions Recorded Confirmed Aspirin Chewable [St Price 81 mg PO DAILY 10/02/18 07/15/23 Aspirin] Metoprolol Tartrate [Lopressor] 12.5 mg PO BID #60 tablet 10/04/18 07/15/23 levETIRAcetam [Keppra] 750 mg PO BID #180 tablet 10/04/18 07/15/23 Acetaminophen [Tylenol] 1,000 mg PO TID 02/17/23 07/15/23 Atorvastatin [Lipitor] 20 mg ORAL DAILY 02/17/23 07/15/23 Cholecalciferol [Vitamin D3] 25 mcg PO DAILY 02/17/23 07/15/23 Diclofenac Sodium 1% Gel [Voltaren 1 applic TOP DAILY PRN 02/17/23 07/15/23 Gel] Ferrous Sulfate [Feosol] 325 mg PO DAILY 02/17/23 07/15/23 Gabapentin [Neurontin] 600 mg PO TID 02/17/23 07/15/23 Melatonin 3 mg PO HS 02/17/23 07/15/23 Omeprazole Magnesium 20 mg PO DAILY 02/17/23 07/15/23 Prazosin [Minipress] 1 mg PO QPM 02/17/23 07/15/23 Saliva Stimulant Comb. No.7 1 applic MM DAILY 02/17/23 07/15/23 [Biotene Oralbalance] Sertraline HCl 100 mg PO QPM 02/17/23 07/15/23 bisacodyL [Onelax] 10 mg RC DAILY PRN 02/17/23 07/15/23 oxyCODONE [Roxicodone] 5 mg ORAL Q4HR PRN 02/17/23 07/15/23 polyethylene glycoL 3350 [Miralax] 17 gm PO DAILY PRN 02/17/23 07/15/23 - Allergies Allergies/Adverse Reactions: Allergies Allergy/AdvReac Type Severity Reaction Status Date / Time No Known Drug Allergies Allergy Verified 08/05/23 07:33 - Social History Does the pt smoke?: Yes Smoking Status: Current every day smoker Does the pt have substance abuse?: No - Immunizations Immunizations are current?: Yes - POLST Patient has POLST: No POLST Status: Full Code PD ED PE NORMAL - General General: No acute distress, Well developed/nourished. No: Alert and oriented X 3 (Alert and oriented x 2) - HEENT HEENT: PERRL, EOMI, Other. No: Atraumatic (Abrasion to right forehead) - Neck Neck: Supple, no meningeal sign - Cardiac Cardiac: RRR - Respiratory Respiratory: No respiratory distress, Clear bilaterally - Abdomen Abdomen: Soft, Non tender, Non distended - Derm Derm: Warm and dry - Extremities Extremities: No deformity, Other (Reports pain on range of motion of both shoulders as well as left hip) - Neuro Neuro: No motor deficit, Normal speech (Alert and oriented x 2 which appears to be his baseline). No: Alert and oriented X 3 Eye Opening: Spontaneous Motor: Obeys Commands Verbal: Oriented GCS Score: 15 Results - Vitals Vitals: Vital Signs - 24 hr 08/05/23 08/05/23 07:26 10:58 Temperature 36.3 C L Heart Rate 58 L 54 L Respiratory 20 16 Rate Blood Pressure 90/71 116/84 H O2 Saturation 96 95 Oxygen O2 Source Room air PD Medical Decision Making - ED course Complexity details: reviewed results, re-evaluated patient, d/w patient ED course: Patient is a 77-year-old male presenting for evaluation of a fall out of bed. He appears to be at his baseline with no focal deficits. Small abrasion to the head. CT head and cervical spine were obtained and reviewed and without significant findings. X-rays of bilateral shoulders as well as pelvis and left hip were obtained and without signs of fracture. Patient was able to ambulate and take a few steps from bed to wheelchair for CT scan. At this time I see no injuries from the fall this morning and patient was up for discharge back to his adult family home. While waiting for transport he did tumble out of his bed even though the guard rails were up. He bumped his head against the bedside tray but did not hit his head on the floor. He was helped back up and reassessed. I did repeat pelvis x-ray which again does not show any fractures and again patient does not have any new symptoms or pain and feel that he is appropriate for discharge back to his living facility. Departure - Departure Disposition: 01 Home, Self Care Clinical Impression: Head injury, Fall, Forehead abrasion Condition: Stable Instructions: ED Head Injury Closed Comments: The x-rays of your shoulders and that your hip do not show signs of a broken bone. You also do not have any injuries noted on the CT scans of your brain and cervical spine. Please take caution when moving from your bed to your motorized chair and ask for help. You do have a small abrasion to your forehead. Please continue to keep this clean and dry. Return to the ER with any concerns. Forms: PCP List Discharge Date/Time: 08/05/23 11:56
[2023-08-05 11:03] VITALS: BP 116/84; O2SAT 95
--- NOTE | 2023-08-05 11:13 | XRAY Report ---
PROCEDURE: Pelvis 1 View INDICATIONS: fell out of bed here in ED TECHNIQUE: 1 view(s) of the pelvis acquired. COMPARISON: None. FINDINGS: Bones: No fractures or dislocations. No suspicious bony lesions. 1 left hip arthroplasty. Hardware is intact without evidence of hardware fracture or periprosthetic lucency to suggest loosening. Mariela re right hip arthritic change. Soft tissues: Visualized bowel gas pattern is normal. No suspicious soft tissue calcifications. IMPRESSION: No visualized acute fracture or dislocation. However, occult injury cannot be excluded. Recommend kane rt interval imaging follow-up in 7-10 days as clinically indicated for additional evaluation. Reviewed by: Rupali Austin MD on 08/05/2023 11:12 AM [facility] Approved by: Rupali Austin MD on 08/05/2023 11:12 AM [facility] Station ID: [id number]
== END 2023-08-05 11:56 | disposition home or self-care (01) ==
LOC: EDUNIT# → ED 07:23
DX: S00.83XA Contusion of other part of head, initial encounter (principal); W06.XXXA Fall from bed, initial encounter; I10 Essential (primary) hypertension; F17.200 Nicotine dependence, unspecified, uncomplicated
CPT/HCPCS: 99283; 99284

== ENCOUNTER 2023-08-05 11:41 | Outpatient (CLI) | payer MEDICARE, MEDICAID | END 2023-08-05 23:59 | disposition home or self-care (01) | LOC: EMS 11:41 | PROVIDERS: ATTEND Emergency Medicine | DX: R41.0 Disorientation, unspecified (principal); S00.81XA Abrasion of other part of head, initial encounter; W07.XXXA Fall from chair, initial encounter; F03.90 Unspecified dementia, unspecified severity, without behavioral disturbance, psychotic disturbance, mood disturbance, and anxiety | CPT/HCPCS: A0425; A0428 ==

== ENCOUNTER 2023-09-01 19:18 | Outpatient (CLI) | payer MEDICARE, MEDICAID | END 2023-09-01 23:59 | disposition critical access hospital (66) | LOC: EMS 19:18 | DX: M54.50 Low back pain, unspecified (principal) | CPT/HCPCS: A0425; A0429 ==

== ENCOUNTER 2023-09-01 19:35 | Emergency (ER) | payer MEDICARE, MEDICAID ==
--- NOTE | 2023-09-01 19:40 | ED Physician Documentation ---
PD HPI BACK PAIN - Stated complaint Stated Complaint: BACK/KIDNEY PX - History obtained from History obtained from: Patient, EMS - History of Present Illness Timing - onset: How many days ago (few?), Unknown (has had left flank to lower thoracic/left abd pain for few days, worse this evening. Sent for care facility for eval. Hisotry of frequent falls but not reportedly recent one. NO vomiting nor diarrhea, no fever.) Timing - details: Gradual onset (he was reportedly complaining about it intermittently until today.), Still present Location: Mid, Left Quality: Pain Associated symptoms: No: Fever, Weakness, Numbness Worsened by: Movement, Palpation, Other (breathing) Review of Systems Constitutional: denies: Fever Throat: denies: Sore throat Respiratory: denies: Cough GI: denies: Nausea, Vomiting, Diarrhea : denies: Dysuria Skin: denies: Rash PD PAST MEDICAL HISTORY - Past Medical History Cardiovascular: None, Hypertension, High cholesterol Respiratory: None Neuro: Dementia, Seizure disorder Endocrine/Autoimmune: None GI: None : None HEENT: None Psych: None Musculoskeletal: None Derm: None - Past Surgical History Past Surgical History: No - Present Medications Home Medications: Ambulatory Orders Medication Instructions Recorded Confirmed Aspirin Chewable [St Price 81 mg PO DAILY 10/02/18 07/15/23 Aspirin] Metoprolol Tartrate [Lopressor] 12.5 mg PO BID #60 tablet 10/04/18 07/15/23 levETIRAcetam [Keppra] 750 mg PO BID #180 tablet 10/04/18 07/15/23 Acetaminophen [Tylenol] 1,000 mg PO TID 02/17/23 07/15/23 Atorvastatin [Lipitor] 20 mg ORAL DAILY 02/17/23 07/15/23 Cholecalciferol [Vitamin D3] 25 mcg PO DAILY 02/17/23 07/15/23 Diclofenac Sodium 1% Gel [Voltaren 1 applic TOP DAILY PRN 02/17/23 07/15/23 Gel] Ferrous Sulfate [Feosol] 325 mg PO DAILY 02/17/23 07/15/23 Gabapentin [Neurontin] 600 mg PO TID 02/17/23 07/15/23 Melatonin 3 mg PO HS 02/17/23 07/15/23 Omeprazole Magnesium 20 mg PO DAILY 02/17/23 07/15/23 Prazosin [Minipress] 1 mg PO QPM 02/17/23 07/15/23 Saliva Stimulant Comb. No.7 1 applic MM DAILY 02/17/23 07/15/23 [Biotene Oralbalance] Sertraline HCl 100 mg PO QPM 02/17/23 07/15/23 bisacodyL [Onelax] 10 mg RC DAILY PRN 02/17/23 07/15/23 oxyCODONE [Roxicodone] 5 mg ORAL Q4HR PRN 02/17/23 07/15/23 polyethylene glycoL 3350 [Miralax] 17 gm PO DAILY PRN 02/17/23 07/15/23 HYDROcod/ACETAM 5/325 [Williams 5/325] 1 ea PO Q6H PRN #10 tablet 09/02/23 Meloxicam [Mobic] 7.5 mg PO BID 10 Days #20 tablet 09/02/23 - Allergies Allergies/Adverse Reactions: Allergies Allergy/AdvReac Type Severity Reaction Status Date / Time No Known Drug Allergies Allergy Verified 09/01/23 19:55 - Living Situation Living Situation: reports: With caregiver(s) Living Arrangement: reports: Assisted living (dementia care) - Social History Does the pt smoke?: Yes Smoking Status: Current every day smoker Does the pt drink ETOH?: No Does the pt have substance abuse?: No - Immunizations Immunizations are current?: Yes - POLST Patient has POLST: No POLST Status: Full Code PD ED PE NORMAL - Vitals Vital signs reviewed: Yes - General General: Well developed/nourished - HEENT HEENT: Atraumatic - Neck Neck: Supple, no meningeal sign, No bony TTP, No adenopathy - Cardiac Cardiac: RRR, No murmur - Respiratory Respiratory: No respiratory distress, Clear bilaterally, Other (left flank and lower ribs posterolateral with tenderness but no crepitance nor deformity.) - Abdomen Abdomen: Normal bowel sounds, Soft, Non tender, Non distended - Back Back: No spinal TTP, Other (tender left flank to palation as well) - Derm Derm: Normal color, Warm and dry - Neuro Neuro: No motor deficit, No sensory deficit, Normal speech. No: Alert and oriented X 3 (person and place, but not time. 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 ) Results - Vitals Vitals: Oxygen O2 Source Room air - Labs Labs: Laboratory Tests 09/01/23 09/01/23 09/02/23 21:31 21:31 00:10 WBC 6.9 RBC 3.60 L Hgb 12.0 L Hct 37.7 L MCV 104.7 H MCH 33.3 H MCHC 31.8 L RDW 13.9 Plt Count 215 MPV 10.5 Neut # (Auto) 4.6 Lymph # (Auto) 1.7 Harmon # (Auto) 0.5 Eos # (Auto) 0.0 Baso # (Auto) 0.0 Absolute Nucleated RBC 0.00 Nucleated RBC % 0.0 Sodium 138 Potassium 4.2 Chloride 104 Carbon Dioxide 31 Anion Gap 3.0 L BUN 14 Creatinine 0.8 Estimated GFR (MDRD) 94 Glucose 92 Calcium 9.3 Magnesium 1.7 Total Bilirubin 0.4 AST 19 ALT 20 Alkaline Phosphatase 165 H Total Protein 6.9 Albumin 3.9 Globulin 3.0 Albumin/Globulin Ratio 1.3 Lipase 77 Urine Color YELLOW Urine Clarity CLEAR Urine pH 7.0 Ur Specific Stella 1.010 Urine Protein NEGATIVE Urine Glucose (UA) NEGATIVE Urine Ketones NEGATIVE Urine Occult Blood NEGATIVE Urine Nitrite NEGATIVE Urine Bilirubin NEGATIVE Urine Urobilinogen 0.2 (NORMAL) Ur Leukocyte Esterase NEGATIVE Ur Microscopic Review NOT INDICATED Urine Culture Comments NOT INDICATED - Rads (name of study) torso CT Relevant Findings:: Prelim report reviewed (left 10th rib fracture. No organ injuries. liver hemagioma. sigmoid wall thickening, suggest colonoscopy.), EMP independent interpretation of test PD Medical Decision Making - ED course Complexity details: reviewed results (10th rib fracture likely, would correlat with area of pain. ), considered differential (pain left flank and lower ribs. Tender there. History of freuqnt falls in recent past with ER visits. Dementia so may not remember recent fall. Lives adult care house ([facility] [address]). No sitnessed recent fall. Can get imaging to eval as pain around lower lung, kidney, spleen area so to eval.), d/w patient Departure - Departure Disposition: 01 Home, Self Care Clinical Impression: Upper back pain on left side, Liver hemangioma Rib fracture Qualifiers: Encounter type: initial encounter Rib fracture type: single rib Fracture type: closed Laterality: left Qualified Code(s): S22.32XA - Fracture of one rib, left side, initial encounter for closed fracture Chest wall contusion Qualifiers: Encounter type: initial encounter Laterality: left Qualified Code(s): S20.212A - Contusion of left front wall of thorax, initial encounter Fall from slip, trip, or stumble Qualifiers: Encounter type: initial encounter Qualified Code(s): W01.0XXA - Fall on same level from slipping, tripping and stumbling without subsequent striking against object, initial encounter Condition: Stable Record reviewed to determine appropriate education?: Yes Instructions: ED Contusion Chest Wall, ED Fx Rib Prescriptions: Meloxicam [Mobic] 7.5 mg PO BID 10 Days #20 tablet HYDROcod/ACETAM 5/325 [Williams 5/325] 1 ea PO Q6H PRN #10 tablet PRN Reason: Pain Comments: Your CT scans of the chest and abdomen did not show any internal organ problems. They did report 1/10 rib fracture on the left which is in the area that you are hurting. No doubt there is some injury of the chest wall just generally of the muscles and such as well. I would suggest activity as tolerated. Use of an anti-inflammatory and add Tylenol. I wrote a prescription for meloxicam twice daily for the next 7 to 10 days. To that add Tylenol 500 to 650 mg every 4-6 hours if needed for pain. In addition you could use hydroxyzine Cotolone/acetaminophen every 6-8 hours if needed for worse pain. This will make you sleepy and incoordinated and sometimes constipated so use it mainly when you rested or at night for sleep. I would anticipate symptoms to improve over the next week or so. A broken rib can take about 4 to 6 weeks to fully heal up. Recheck with your primary care if not improved reasonably well over the next week or 2. I sent your prescriptions to [facility] pharmacy in [place]. I am prescribing a short course of narcotic pain medication for you. These are potentially dangerous and addictive medications that should be used carefully. These medications may constipate you. Take an gnwi-qsc-[id number] stool softener such as docusate twice daily with plenty of water while taking these m edications. If you go 24 hours without a bowel movement, take odnf-qim-[id number] MiraLAX, per package instructions. Do not drink or drive while taking these medications. If you received narcotic or sedating medications while in the emergency department do not drive for 24 hours. Store this medication in a safe, secure place and out of reach of children. It is a violation of federal law to give or sell this medication to another person or to use in a manner other than prescribed. The ED will not refill narcotic prescriptions, including prescriptions lost or stolen. You can dispose of unwanted medications at the [facility] office or at several pharmacies such as [facility]. Forms: PCP List Discharge Date/Time: 09/02/23 02:59
[2023-09-01] MEDS ORDERED: HYDROmorphone 1 MG/ML CARPUJECT IVP STA (21:04)
[2023-09-01] MEDS ORDERED: SODIUM CHLORIDE 0.9% 1,000 ML IV STA (21:04)
[2023-09-01] MEDS ORDERED: KETOROLAC 15 MG/ML VIAL IVP STA (21:04)
[2023-09-01] MEDS ORDERED: iohexoL-300 100 ML VIAL ONE (21:14)
[2023-09-01 21:38] LABS: BASOPHILS % (AUTO) 0.1 %; EOSINOPHILS % (AUTO) 0.4 %; HCT - HEMATOCRIT 37.7 % (42.0-52.0); LYMPHOCYTES # (AUTO) 1.7 10^3/uL (1.5-3.5); LYMPHOCYTES % (AUTO) 24.4 %; MEAN CORPUSCULAR HEMOGLOBIN 33.3 pg (27.0-31.0); MEAN CORPUSCULAR HGB CONC 31.8 g/dL (32.0-36.0); MEAN CORPUSCULAR VOLUME 104.7 fL (80.0-94.0); MEAN PLATELET VOLUME 10.5 fL (7.4-11.4); MONOCYTES # (AUTO) 0.5 10^3/uL (0.0-1.0); MONOCYTES % (AUTO) 7.8 %; NEUTROPHILS # (AUTO) 4.6 10^3/uL (1.5-6.6); NEUTROPHILS % (AUTO) 67.2 %; PLT - PLATELET COUNT 215 10^3/uL (130-450); RED CELL DISTRIBUTION WIDTH 13.9 % (12.0-15.0); WHITE BLOOD COUNT 6.9 x10^3/uL (4.8-10.8)
[2023-09-01 21:49] LABS: ALBUMIN 3.9 g/dL (3.2-5.5); ALBUMIN/GLOBULIN RATIO 1.3 (1.0-2.2); BILIRUBIN,TOTAL 0.4 mg/dL (0.2-1.0); CALCIUM 9.3 mg/dL (8.5-10.3); CREATININE 0.8 mg/dL (0.6-1.3); MAGNESIUM 1.7 mg/dL (1.7-2.3); POTASSIUM 4.2 mmol/L (3.5-4.5); TOTAL PROTEIN 6.9 g/dL (6.4-8.9)
[2023-09-01] MEDS ORDERED: iohexoL-300 100 ML VIAL IVP ONE (23:15)
--- NOTE | 2023-09-01 23:40 | CT Report ---
PROCEDURE: Chest W INDICATIONS: fall with posterolateral left chest/abd pain CONTRAST: 100mL Omni 300 TECHNIQUE: After the administration of intravenous contrast, a CT scan of the chest was performed. Images were recorded and evaluated at appropriate window settings. Reformats: axial MIP of the chest, coronal and sagittal. For radiation dose reduction, the following was used: automated exposure control, adjustme nt of mA and/or kV according to patient size. COMPARISON: 02/17/2023 FINDINGS: Image quality: Diagnostic, but there is mild motion artifact Lungs and pleura:Mild bibasilar opacities and atelectasis. No pneumothorax or hemothorax. Mediastinum, heart, and esophagus: Mild nonspecific distal esophageal wall thickening. There are yanely nary calcifications. Borderline cardiomegaly. No pathologic lymph nodes by size criteria. Chest wall and thyroid: Hypervascular left thyroid nodule measures 1.5 cm. Chest wall is unremarkable . Upper abdomen: Separately dictated. Bones: No displaced fracture is seen. There are degenerative changes. Partially seen cervical fusion hardware. IMPRESSION: Mild bibasilar opacities likely representing mild airspace disease and atelectasis. Consider future i maging surveillance to assess for resolution. No pulmonary laceration, pneumothorax or hemothorax. No other traumatic injury identified. Abdominal pelvic findings are separately dictated. Other findings as above, likely nonacute. Reviewed by: Cristi Puri MD on 09/01/2023 11:38 PM PST Approved by: Cristi Puri MD on 09/01/2023 11:38 PM PST Station ID: [id number]
--- NOTE | 2023-09-01 23:47 | CT Report ---
PROCEDURE: Abdomen/Pelvis W INDICATIONS: left flank/lower chest pain days CONTRAST: 100mL Omni 300 TECHNIQUE: After the administration of intravenous contrast, a CT scan of the abdomen and pelvis was performed. Images were recorded and evaluated at appropriate window settings. Reformats: coronal and sagittal. F or radiation dose reduction, the following was used: automated exposure control, adjustment of mA and /or kV according to patient size. COMPARISON: None. FINDINGS: Image quality: Motion degraded Lower chest: Separately dictated Liver: Hypervascular lesion adjacent to the gallbladder axial image 39 appears similar 0.9 cm. Indete rminate hypoattenuating lesion also seen at the left lobe dome (axial image 27). Gallbladder and biliary system: Unremarkable, nondilated Pancreas: Mild to moderate parenchymal atrophy. Possible calcifications may be due to prior inflammat ion. Spleen: Nonenlarged Adrenals: No discrete nodule Kidneys: No solid mass or hydronephrosis Vessels and lymph nodes: The main portal vein is patent. No abdominal aortic aneurysm or pathologic l ymph nodes by size criteria. Bowel and peritoneum: No evidence of small bowel obstruction. No pathologic ascites or drainable absc ess. There is moderate to large fecal loading, including a rectal stool ball. There is wall thickenin g of the sigmoid colon, numerous diverticula. Body wall: Unremarkable. Possible tiny fat-containing umbilical hernia. Pelvis: Bladder is unremarkable. Prostate is not well evaluated on this study. There is metallic layla fact in the pelvis. Bones: Possible deformity and exostosis of the right proximal femur. Left hip arthroplasty. Possible old right pubic deformities. There are degenerative changes. Questionable minimally displaced fractur e at the left lateral 10th rib on coronal images. IMPRESSION: Possible minimally displaced left lateral 10th rib fracture. No acute intra-abdominal injury. Suspected sequela of chronic diverticular disease, and sigmoid wall thickening. Consider correlation with screening colonoscopy results. Indeterminate liver lesions as described above, possibly a complex cyst and hemangioma, consider nonu rgent correlation with liver protocol MRI. Other findings as above. Motion degraded CT. Reviewed by: Cristi Puri MD on 09/01/2023 11:46 PM PST Approved by: Cristi Puri MD on 09/01/2023 11:46 PM PST Station ID: [id number]
[2023-09-02 00:26] LABS: BILIRUBIN,URINE NEGATIVE (NEGATIVE); GLUCOSE, URINE (UA) NEGATIVE (NEGATIVE); KETONES,URINE (UA) NEGATIVE (NEGATIVE); LEUKOCYTE ESTERASE, URINE NEGATIVE (NEGATIVE); NITRITE,URINE NEGATIVE (NEGATIVE); OCCULT BLOOD,URINE NEGATIVE (NEGATIVE); PROTEIN,URINE NEGATIVE (NEGATIVE); UROBILINOGEN,URINE 0.2 (NORMAL) E.U./dL (NORMAL)
[2023-09-02 00:30] LABS: CLARITY,URINE CLEAR (CLEAR)
[2023-09-02] MEDS ORDERED: HYDROcod/ACET 5/325 Prepack 4 PO STA (01:49)
[2023-09-02 01:57] VITALS: BP 121/79; O2SAT 96
== END 2023-09-02 02:59 | disposition home or self-care (01) ==
LOC: EDUNIT# → ED 19:35
DX: S22.32XA Fracture of one rib, left side, initial encounter for closed fracture (principal); S20.212A Contusion of left front wall of thorax, initial encounter; W01.0XXA Fall on same level from slipping, tripping and stumbling without subsequent striking against object, initial encounter; D18.09 Hemangioma of other sites; M54.6 Pain in thoracic spine; F03.90 Unspecified dementia, unspecified severity, without behavioral disturbance, psychotic disturbance, mood disturbance, and anxiety; I10 Essential (primary) hypertension; Z91.81 History of falling
CPT/HCPCS: 36415; 71260; 74177; 80053; 81003; 83690; 83735; 85025; 96374; 96375; 99284; J1170; Q9967; 81001; 87086

== ENCOUNTER 2023-09-02 03:03 | Outpatient (CLI) | payer MEDICARE, MEDICAID | END 2023-09-02 03:04 | disposition home or self-care (01) | LOC: EMS 03:03 | PROVIDERS: ATTEND Emergency Medicine | DX: S22.32XA Fracture of one rib, left side, initial encounter for closed fracture (principal); X58.XXXA Exposure to other specified factors, initial encounter | CPT/HCPCS: A0425; A0428 ==

== ENCOUNTER 2023-10-16 04:14 | Outpatient (CLI) | payer MEDICARE, MEDICAID | END 2023-10-16 23:59 | disposition critical access hospital (66) | LOC: EMS 04:14 | DX: R56.9 Unspecified convulsions (principal); F03.90 Unspecified dementia, unspecified severity, without behavioral disturbance, psychotic disturbance, mood disturbance, and anxiety | CPT/HCPCS: A0425; A0429 ==

== ENCOUNTER 2023-10-16 04:26 | Emergency (ER) | payer MEDICARE, MEDICAID ==
[2023-10-16 04:49] LABS: EOSINOPHILS % (AUTO) 0.5 %; HCT - HEMATOCRIT 35.7 % (42.0-52.0); HGB - HEMOGLOBIN 11.8 g/dL (14.0-18.0); LYMPHOCYTES # (AUTO) 2.4 10^3/uL (1.5-3.5); LYMPHOCYTES % (AUTO) 41.8 %; MEAN CORPUSCULAR HEMOGLOBIN 33.2 pg (27.0-31.0); MEAN CORPUSCULAR HGB CONC 33.1 g/dL (32.0-36.0); MEAN CORPUSCULAR VOLUME 100.6 fL (80.0-94.0); MEAN PLATELET VOLUME 10.6 fL (7.4-11.4); MONOCYTES # (AUTO) 0.4 10^3/uL (0.0-1.0); MONOCYTES % (AUTO) 6.7 %; NEUTROPHILS # (AUTO) 2.9 10^3/uL (1.5-6.6); NEUTROPHILS % (AUTO) 50.8 %; PLT - PLATELET COUNT 167 10^3/uL (130-450); RED BLOOD COUNT 3.55 10^6/uL (4.70-6.10); RED CELL DISTRIBUTION WIDTH 12.7 % (12.0-15.0); WHITE BLOOD COUNT 5.6 x10^3/uL (4.8-10.8)
--- NOTE | 2023-10-16 04:52 | ED Physician Documentation ---
History of Present Illness - Stated complaint Stated Complaint: SEIZURE - Chief complaint Chief Complaint: Neuro - History obtained from History obtained from: EMS - Additonal information Additional information: 78yM with pmh dementia, seizure disorder on keppra 750 bid, p/w breakthrough GTC seizure just precinct captain in the early hours of this morning. patient lives at a family home and they were unable to get his meds due to a pharmacy issue for the past 2 days. Patient otherwise has been behaving normally. he did bite his tongue at time of seizure. PD PAST MEDICAL HISTORY - Past Medical History Cardiovascular: None, Hypertension, High cholesterol Respiratory: None Neuro: Dementia, Seizure disorder Endocrine/Autoimmune: None GI: None : None HEENT: None Psych: None Musculoskeletal: None Derm: None - Past Surgical History Past Surgical History: No - Present Medications Home Medications: Ambulatory Orders Medication Instructions Recorded Confirmed Aspirin Chewable [St Price 81 mg PO DAILY 10/02/18 07/15/23 Aspirin] Metoprolol Tartrate [Lopressor] 12.5 mg PO BID #60 tablet 10/04/18 07/15/23 levETIRAcetam [Keppra] 750 mg PO BID #180 tablet 10/04/18 10/16/23 Acetaminophen [Tylenol] 1,000 mg PO TID 02/17/23 10/16/23 Atorvastatin [Lipitor] 20 mg ORAL DAILY 02/17/23 10/16/23 Cholecalciferol [Vitamin D3] 25 mcg PO DAILY 02/17/23 10/16/23 Diclofenac Sodium 1% Gel [Voltaren 1 applic TOP DAILY PRN 02/17/23 10/16/23 Gel] Ferrous Sulfate [Feosol] 325 mg PO DAILY 02/17/23 10/16/23 Gabapentin [Neurontin] 300 mg PO TID 02/17/23 10/16/23 Melatonin 3 mg PO HS 02/17/23 10/16/23 Omeprazole Magnesium 20 mg PO DAILY 02/17/23 10/16/23 Prazosin [Minipress] 1 mg PO QPM 02/17/23 10/16/23 Saliva Stimulant Comb. No.7 1 applic MM DAILY 02/17/23 10/16/23 [Biotene Oralbalance] Sertraline HCl 100 mg PO QPM 02/17/23 07/15/23 bisacodyL [Onelax] 10 mg RC DAILY PRN 02/17/23 10/16/23 oxyCODONE [Roxicodone] 5 mg ORAL Q4HR PRN 02/17/23 10/16/23 polyethylene glycoL 3350 [Miralax] 17 gm PO DAILY PRN 02/17/23 10/16/23 DULoxetine [Cymbalta] 30 mg PO HS 10/16/23 10/16/23 Levetiracetam [Keppra] 750 mg PO BID #30 tablet 10/16/23 busPIRone [Buspar] 5 mg PO BID 10/16/23 10/16/23 traMADol [Ultram] 50 mg PO BID 10/16/23 10/16/23 traZODone [Desyrel] 25 mg PO HS 10/16/23 10/16/23 - Allergies Allergies/Adverse Reactions: Allergies Allergy/AdvReac Type Severity Reaction Status Date / Time No Known Drug Allergies Allergy Verified 10/16/23 05:49 - Social History Does the pt smoke?: No Smoking Status: Never smoker Does the pt drink ETOH?: No Does the pt have substance abuse?: No - Immunizations Immunizations are current?: Yes - POLST Patient has POLST: No POLST Status: Full Code PD ED PE NORMAL - Vitals Vital signs reviewed: Yes - General General: No acute distress, Well developed/nourished, Other (elderly appearing. AOX1, postictal appearing) - HEENT HEENT: Atraumatic, PERRL, EOMI, Moist mucous membranes, Pharynx benign - Neck Neck: Supple, no meningeal sign - Cardiac Cardiac: RRR - Respiratory Respiratory: No respiratory distress, Clear bilaterally - Abdomen Abdomen: Non tender, Non distended - Derm Derm: Normal color - Neuro Neuro: No motor deficit, No sensory deficit, Normal speech Eye Opening: Spontaneous Motor: Obeys Commands Verbal: Confused GCS Score: 14 Results - Vitals Vitals: Vital Signs - 24 hr 10/16/23 10/16/23 10/16/23 04:30 04:44 06:29 Heart Rate 88 81 Respiratory 20 20 18 Rate Blood Pressure 110/76 112/67 O2 Saturation 91 L 95 100 If not protocol 2 : Oxygen Flow, liters/minute Oxygen O2 Source Room air - Labs Labs: Laboratory Tests 10/16/23 10/16/23 04:39 04:39 WBC 5.6 RBC 3.55 L Hgb 11.8 L Hct 35.7 L MCV 100.6 H MCH 33.2 H MCHC 33.1 RDW 12.7 Plt Count 167 MPV 10.6 Neut # (Auto) 2.9 Lymph # (Auto) 2.4 [place] # (Auto) 0.4 Eos # (Auto) 0.0 Baso # (Auto) 0.0 Absolute Nucleated RBC 0.00 Nucleated RBC % 0.0 Sodium 138 Potassium 3.7 Chloride 104 Carbon Dioxide 26 Anion Gap 8.0 BUN 17 Creatinine 0.9 Estimated GFR (MDRD) 82 L Glucose 119 H Calcium 9.2 Total Bilirubin 0.4 AST 14 ALT 18 Alkaline Phosphatase 121 Total Protein 6.7 Albumin 4.0 Globulin 2.7 Albumin/Globulin Ratio 1.5 Lipase 32 PD Medical Decision Making - ED course ED course: 78yM with pmh dementia and seizure disorder p/w seizure after missing his meds for two days. labwork including cbc, abdominal panel, u/a and keppra level ordered. Keppra bolus provided iv. plan to reevaluate and likely send home to f/u with neurologist outpatient. d/w Spenser (Donna's brother in law) whose Diana has POA. d/w Cris - the pharmacy he goes to sends monthly refills but they didn't send the medication. It is out of refills. [facility] [phone]. rx sent for keppra to pharmacy. advised need for outpatient neurology follow up. return precautions given. Departure - Departure Disposition: 01 Home, Self Care Clinical Impression: Seizure Condition: Stable Instructions: First Aid Seizures Prescriptions: Levetiracetam [Keppra] 750 mg PO BID #30 tablet Comments: You were seen in the emergency department for seizure. The labwork looked okay. You received 1 gram of keppra IV. A keppra level was sent off and will result in a few days. You can view this result on your patient health portal. Please follow-up with your neurologist and return to the emergency department if you have any new or worsening symptoms or other concerns. Forms: PCP List
[2023-10-16] MEDS: levETIRAcetam INJ 1,000 MG in SODIUM CHLORIDE 0.9% 100ML 100 ML IV STA (05:01)
[2023-10-16 05:05] LABS: ALBUMIN/GLOBULIN RATIO 1.5 (1.0-2.2); BILIRUBIN,TOTAL 0.4 mg/dL (0.2-1.0); CALCIUM 9.2 mg/dL (8.5-10.3); CREATININE 0.9 mg/dL (0.6-1.3); POTASSIUM 3.7 mmol/L (3.5-4.5); TOTAL PROTEIN 6.7 g/dL (6.4-8.9)
[2023-10-16 08:22] VITALS: BP 114/71; O2SAT 98
== END 2023-10-16 08:34 | disposition home or self-care (01) ==
LOC: EDUNIT# → ED 04:26
DX: R56.9 Unspecified convulsions (principal); Z91.138 Patient's unintentional underdosing of medication regimen for other reason
CPT/HCPCS: 36415; 80053; 80177; 83690; 85025; 96365; 99284

== ENCOUNTER 2023-10-16 08:30 | Outpatient (CLI) | payer MEDICARE, MEDICAID | END 2023-10-16 23:59 | disposition home or self-care (01) | LOC: EMS 08:30 | DX: R56.9 Unspecified convulsions (principal); F03.90 Unspecified dementia, unspecified severity, without behavioral disturbance, psychotic disturbance, mood disturbance, and anxiety | CPT/HCPCS: A0425; A0428 ==

== ENCOUNTER 2024-02-11 01:03 | Outpatient (CLI) | payer MEDICARE, MEDICAID | END 2024-02-11 23:59 | disposition critical access hospital (66) | LOC: EMS 01:03 | PROVIDERS: ATTEND Emergency Medicine | DX: R06.03 Acute respiratory distress (principal) | CPT/HCPCS: A0425; A0427 ==

== ENCOUNTER 2024-02-11 01:15 | Inpatient (IN) | payer MEDICARE, MEDICAID ==
--- NOTE | 2024-02-11 01:17 | ED Physician Documentation ---
History of Present Illness - Stated complaint Stated Complaint: SOA - History obtained from History obtained from: EMS - Additonal information Additional information: 78yM with pmh seizure disorder, hld, dementia, presents from [facility] with AMS, fever, and shortness of breath. patient was 85% RA on ems arrival, acutely soa. he received 1 neb treatment en route and maintained sats in mid90s on 10L facemask. further history limited by patient dementia PD PAST MEDICAL HISTORY - Past Medical History Cardiovascular: None, Hypertension, High cholesterol Respiratory: None Neuro: Dementia, Seizure disorder Endocrine/Autoimmune: None GI: None : None HEENT: None Psych: None Musculoskeletal: None Derm: None - Past Surgical History Past Surgical History: No - Present Medications Home Medications: Ambulatory Orders Medication Instructions Recorded Confirmed Aspirin Chewable [St Price 81 mg PO DAILY 10/02/18 07/15/23 Aspirin] Metoprolol Tartrate [Lopressor] 12.5 mg PO BID #60 tablet 10/04/18 07/15/23 levETIRAcetam [Keppra] 750 mg PO BID #180 tablet 10/04/18 10/16/23 Acetaminophen [Tylenol] 1,000 mg PO TID 02/17/23 10/16/23 Atorvastatin [Lipitor] 20 mg ORAL DAILY 02/17/23 10/16/23 Cholecalciferol [Vitamin D3] 25 mcg PO DAILY 02/17/23 10/16/23 Diclofenac Sodium 1% Gel [Voltaren 1 applic TOP DAILY PRN 02/17/23 10/16/23 Gel] Ferrous Sulfate [Feosol] 325 mg PO DAILY 02/17/23 10/16/23 Gabapentin [Neurontin] 300 mg PO TID 02/17/23 10/16/23 Melatonin 3 mg PO HS 02/17/23 10/16/23 Omeprazole Magnesium 20 mg PO DAILY 02/17/23 10/16/23 Prazosin [Minipress] 1 mg PO QPM 02/17/23 10/16/23 Saliva Stimulant Comb. No.7 1 applic MM DAILY 02/17/23 10/16/23 [Biotene Oralbalance] Sertraline HCl 100 mg PO QPM 02/17/23 07/15/23 bisacodyL [Onelax] 10 mg RC DAILY PRN 02/17/23 10/16/23 oxyCODONE [Roxicodone] 5 mg ORAL Q4HR PRN 02/17/23 10/16/23 polyethylene glycoL 3350 [Miralax] 17 gm PO DAILY PRN 02/17/23 10/16/23 DULoxetine [Cymbalta] 30 mg PO HS 10/16/23 10/16/23 Levetiracetam [Keppra] 750 mg PO BID #30 tablet 10/16/23 busPIRone [Buspar] 5 mg PO BID 10/16/23 10/16/23 traMADol [Ultram] 50 mg PO BID 10/16/23 10/16/23 traZODone [Desyrel] 25 mg PO HS 10/16/23 10/16/23 - Allergies Allergies/Adverse Reactions: Allergies Allergy/AdvReac Type Severity Reaction Status Date / Time No Known Drug Allergies Allergy Verified 02/11/24 01:40 - Social History Does the pt smoke?: No Smoking Status: Never smoker Does the pt drink ETOH?: No Does the pt have substance abuse?: No - Immunizations Immunizations are current?: Yes - POLST Patient has POLST: No POLST Status: Full Code PD ED PE NORMAL - Vitals Vital signs reviewed: Yes - General General: Other (AOX1, uncomfortable appearing with mild increased wob) - HEENT HEENT: Atraumatic, PERRL, EOMI, Moist mucous membranes, Pharynx benign - Neck Neck: Supple, no meningeal sign - Cardiac Cardiac: RRR - Respiratory Respiratory: Other (coarse bilateral breath sounds) - Abdomen Abdomen: Non tender, Non distended - Derm Derm: Normal color, Warm and dry - Extremities Extremities: No deformity - Neuro Neuro: No motor deficit, No sensory deficit - Psych Psych: Normal mood, Normal affect Results - Vitals Vitals: Vital Signs - 24 hr 02/11/24 02/11/24 01:24 01:52 Temperature 36.7 C Heart Rate 95 Respiratory 24 18 Rate Blood Pressure 105/73 O2 Saturation 92 If not protocol 5 : Oxygen Flow, liters/minute Oxygen O2 Source Nasal cannula Oxygen Flow Rate 4 - EKG (time done) 0146 EKG releavant findings:: EKG personally interpreted by author of this note. Relevant findings are: Rate: Rate (enter#) (95) Rhythm: NSR Intervals: RBBB Ischemia: Non specific changes Other comments: Other comments (similar to prior ekg 07/15/23) - Labs Labs: Laboratory Tests 02/11/24 02/11/24 02/11/24 01:30 01:30 01:30 WBC 6.1 RBC 3.61 L Hgb 12.0 L Hct 36.2 L MCV 100.3 H MCH 33.2 H MCHC 33.1 RDW 13.5 Plt Count 224 MPV 10.2 Neut # (Auto) 3.8 Lymph # (Auto) 1.8 [place] # (Auto) 0.5 Eos # (Auto) 0.0 Baso # (Auto) 0.0 Absolute Nucleated RBC 0.00 Nucleated RBC % 0.0 VBG pH VBG pCO2 VBG pO2 VBG HCO3 VBG Total CO2 VBG O2 Saturation VBG Base Excess Sodium 139 Potassium 3.9 Chloride 106 Carbon Dioxide 27 Anion Gap 6.0 BUN 26 H Creatinine 0.9 Estimated GFR (MDRD) 82 L Glucose 133 H Lactic Acid 1.0 Calcium 8.9 Total Bilirubin 0.3 AST 13 ALT 11 Alkaline Phosphatase 114 Total Protein 6.8 Albumin 3.9 Globulin 2.9 Albumin/Globulin Ratio 1.3 02/11/24 01:49 WBC RBC Hgb Hct MCV MCH MCHC RDW Plt Count MPV Neut # (Auto) Lymph # (Auto) [place] # (Auto) Eos # (Auto) Baso # (Auto) Absolute Nucleated RBC Nucleated RBC % VBG pH 7.439 H VBG pCO2 34.2 L VBG pO2 84.0 H VBG HCO3 22.7 L VBG Total CO2 23.7 L VBG O2 Saturation 96.4 H VBG Base Excess -0.9 Sodium Potassium Chloride Carbon Dioxide Anion Gap BUN Creatinine Estimated GFR (MDRD) Glucose Lactic Acid Calcium Total Bilirubin AST ALT Alkaline Phosphatase Total Protein Albumin Globulin Albumin/Globulin Ratio PD Medical Decision Making - ED course ED course: 78yM p/w sepsis likely 2/2 respiratory issue given he is hypoxic in the arce as well as on arrival, responsive to nasal cannula oxygen. Sepsis workup was ordered and plan is to admit to telehealth. Departure - Departure Disposition: 66 [facility] DC/Xfer Clinical Impression: Sepsis, Hypoxia Condition: Stable
[2024-02-11 01:36] LABS: BASOPHILS % (AUTO) 0.2 %; EOSINOPHILS % (AUTO) 0.5 %; HCT - HEMATOCRIT 36.2 % (42.0-52.0); LYMPHOCYTES # (AUTO) 1.8 10^3/uL (1.5-3.5); LYMPHOCYTES % (AUTO) 29.3 %; MEAN CORPUSCULAR HEMOGLOBIN 33.2 pg (27.0-31.0); MEAN CORPUSCULAR HGB CONC 33.1 g/dL (32.0-36.0); MEAN CORPUSCULAR VOLUME 100.3 fL (80.0-94.0); MEAN PLATELET VOLUME 10.2 fL (7.4-11.4); MONOCYTES # (AUTO) 0.5 10^3/uL (0.0-1.0); MONOCYTES % (AUTO) 7.4 %; NEUTROPHILS # (AUTO) 3.8 10^3/uL (1.5-6.6); NEUTROPHILS % (AUTO) 62.3 %; PLT - PLATELET COUNT 224 10^3/uL (130-450); RED BLOOD COUNT 3.61 10^6/uL (4.70-6.10); RED CELL DISTRIBUTION WIDTH 13.5 % (12.0-15.0); WHITE BLOOD COUNT 6.1 x10^3/uL (4.8-10.8)
[2024-02-11 01:55] LABS: ALBUMIN 3.9 g/dL (3.2-5.5); ALBUMIN/GLOBULIN RATIO 1.3 (1.0-2.2); BILIRUBIN,TOTAL 0.3 mg/dL (0.2-1.0); CALCIUM 8.9 mg/dL (8.5-10.3); CREATININE 0.9 mg/dL (0.6-1.3); POTASSIUM 3.9 mmol/L (3.5-4.5); TOTAL PROTEIN 6.8 g/dL (6.4-8.9)
[2024-02-11 01:56] LABS: VBG HCO3 22.7 mmol/L (23-28); VBG PCO2 34.2 mmHg (41-51); VBG PH 7.439 (7.31-7.41); VBG TOTAL CO2 23.7 mmol/L (24-29)
[2024-02-11 01:57] LABS: VBG BASE EXCESS -0.9 mmol/L (-2 - +2); VBG OXYGEN SATURATION 96.4 % (60-80)
--- NOTE | 2024-02-11 01:59 | XRAY Report ---
PROCEDURE: Chest 1V INDICATIONS: Sepsis TECHNIQUE: One view of the chest was acquired. COMPARISON: 07/15/2023. FINDINGS: Surgical changes and devices: Postsurgical changes of prior cervical spinal fusion. Lungs and pleura: No pleural effusions or pneumothorax. Lungs are clear. Mediastinum: Mediastinal contours appear normal. Heart size is normal. Bones and chest wall: No suspicious bony lesions. Overlying soft tissues appear unremarkable. IMPRESSION: No acute cardiopulmonary process. No focal consolidation seen. Reviewed by: Ismael Castanon MD on 02/11/2024 1:58 AM PDT Approved by: Ismael Castanon MD on 02/11/2024 1:58 AM PDT Station ID: [id number]
[2024-02-11] MEDS ORDERED: ONDANSETRON 4 MG/2 ML VIAL IVP PRN (02:23)
[2024-02-11] MEDS ORDERED: SODIUM CHLORIDE FLUSH 0.9% 10 ML SYRINGE IVP PRN (02:23)
[2024-02-11] MEDS ORDERED: iohexoL-300 100 ML VIAL ONE (02:26)
--- NOTE | 2024-02-11 02:41 | HISTORY & PHYSICAL EXAMINATION ---
Chief Complaint - Chief Complaint Chief Complaint: acute hypoxia and altered above baseline History of Present Illness - Admitted From Admitted From:: ED - History Obtained From Records Reviewed: EMR History obtained from: ED staff Exam Limitations: Tele medicine - History of Present Illness HPI Comment/Other: 78YOM, resident of a nursing facility, c dementia, seizure disorder, hyperlipidemia, hx of alcohol & meth abuse, and medical nonadherence who presents to the ED with report of increase confusion and acutely hypoxemic with SaO2 85% on room air at the nursing facility. There was report of fever and cough. Patient was found by EMS to have upper airway gurgling noises. Patient seen in the ED and currently no following commands and nonverbal. He is alert. In the ED, cxr is negative. no leukocytosis. patient noted to require O2 support 4-5L NC to maintain 95% SaO2. History - Past Medical History Cardiovascular: reports: None, Hypertension, High cholesterol Respiratory: reports: None Neuro: reports: Dementia, Seizure disorder Endocrine/Autoimmune: reports: None GI: reports: None : reports: None HEENT: reports: None Psych: reports: None Musculoskeletal: reports: None Derm: reports: None MRSA Hx?: No - Family & Social History Family History Comment/Other: Cannot obtain family history because patient is currently post-ictal Living Situation: With caregiver(s) Social History Notes: Patient has history of alcohol and methamphetamine abuse. Also uses THC - POLST Patient has POLST: No POLST Status: Full Code Meds/Allgy - Home Medications Home Medications: Ambulatory Orders Medication Instructions Recorded Confirmed Aspirin Chewable [St Price 81 mg PO DAILY 10/02/18 07/15/23 Aspirin] Metoprolol Tartrate [Lopressor] 12.5 mg PO BID #60 tablet 10/04/18 07/15/23 levETIRAcetam [Keppra] 750 mg PO BID #180 tablet 10/04/18 10/16/23 Acetaminophen [Tylenol] 1,000 mg PO TID 02/17/23 10/16/23 Atorvastatin [Lipitor] 20 mg ORAL DAILY 02/17/23 10/16/23 Cholecalciferol [Vitamin D3] 25 mcg PO DAILY 02/17/23 10/16/23 Diclofenac Sodium 1% Gel [Voltaren 1 applic TOP DAILY PRN 02/17/23 10/16/23 Gel] Ferrous Sulfate [Feosol] 325 mg PO DAILY 02/17/23 10/16/23 Gabapentin [Neurontin] 300 mg PO TID 02/17/23 10/16/23 Melatonin 3 mg PO HS 02/17/23 10/16/23 Omeprazole Magnesium 20 mg PO DAILY 02/17/23 10/16/23 Prazosin [Minipress] 1 mg PO QPM 02/17/23 10/16/23 Saliva Stimulant Comb. No.7 1 applic MM DAILY 02/17/23 10/16/23 [Biotene Oralbalance] Sertraline HCl 100 mg PO QPM 02/17/23 07/15/23 bisacodyL [Onelax] 10 mg RC DAILY PRN 02/17/23 10/16/23 oxyCODONE [Roxicodone] 5 mg ORAL Q4HR PRN 02/17/23 10/16/23 polyethylene glycoL 3350 [Miralax] 17 gm PO DAILY PRN 02/17/23 10/16/23 DULoxetine [Cymbalta] 30 mg PO HS 10/16/23 10/16/23 Levetiracetam [Keppra] 750 mg PO BID #30 tablet 10/16/23 busPIRone [Buspar] 5 mg PO BID 10/16/23 10/16/23 traMADol [Ultram] 50 mg PO BID 10/16/23 10/16/23 traZODone [Desyrel] 25 mg PO HS 10/16/23 10/16/23 - Allergies Allergies/Adverse Reactions: Allergies Allergy/AdvReac Type Severity Reaction Status Date / Time No Known Drug Allergies Allergy Verified 02/11/24 01:40 Review of Systems - Other Findings Other Findings: limited 2/2 dementia Exam - Vital Signs Reviewed Vital Signs: Yes Vital Signs: Vital Signs x48h Temp Pulse Resp BP Pulse Ox O2 Flow Rate 02/11/24 02:00 98 17 113/72 95 5 02/11/24 01:52 18 5 02/11/24 01:24 36.7 C 95 24 105/73 92 - Physical Exam General Appearance: positive: No acute distress Eyes Bilateral: positive: Normal inspection ENT: positive: ENT inspection nml Neck: positive: Nml inspection Respiratory: positive: No respiratory distress, Breath sounds nml (per RN) Cardiovascular: positive: Regular rate & rhythm (per RN) Abdomen: positive: Non-tender, Nml bowel sounds, No distention. negative: Tende rness Skin: positive: Color nml. negative: No rash Neurologic/Psychiatric: negative: Oriented x3 Conclusion/Plan - Problem List (1) Acute hypoxemic respiratory failure Conclusion/Plan: not definitive regarding the cause of acute hypoxemia. possible breakthrough seizure with aspiration. CXR negative for PNA. will check cardiac enzymes. will consider CTA Chest better investigate cause of hypoxemia. continue q6hr breathing neb treatment. HOB>30. aspiration precaution. continue O2 support as needed. (2) Acute metabolic encephalopathy Conclusion/Plan: highly suspicious that patient's sudden change in mentation from baseline 2/2 breakthrough seizure. in addition, the upper airway gurgling can support a breakthrough seizure as well. Cover with Keppra. neuro monitoring. seizure and fall precaution. infection workup (3) Seizure disorder Conclusion/Plan: as noted above, highly suspicious that patient had a breakthrough seizure given report of gurgling noise and confused above baseline dementia. currently still not oriented and not following command. more alert. cover with home Keppra. Pharm consulted to provide med reconciliation. (4) Hypertension Conclusion/Plan: controlled. restart home antihypertensive. (5) Hyperlipidemia Conclusion/Plan: managed. continue statin therapy. (6) Dementia Conclusion/Plan: reportedly mentation is not at baseline despite report of dementia. avoid medications that can trigger delirium. good sleepy hygiene. prn trazodone for sleep. fall and aspiration and seizure precaution - Lab Results Fish Bones: 02/11/24 01:30 02/11/24 01:30 - Diagnostic Imaging Results Diagnostic Imaging Results: positive: Prelim report reviewed Core Measures - Anticipated LOS I expect patient to be DC'd or transferred within 96 hours.: Yes - Issues Hospital Issues and Management Plan: The patient consented to receive this telemedicine service, which I performed via live two-way audiovisual equipment. The patient is at ([facility]) and I am physically in [facility]. A nurse assisted me in the visit. Full code until otherwise addressed by nursing facility with POLST form SCDs, Heparin Inpatient Huey Ford DO Internal Medicine [employer] Tele [employer] Art - DVT/VTE - Prophylaxis VTE/DVT Device ordered at admit?: Yes Telemedicine Consult Details - Provider Location & Consult Time Telemedicine consultation conducted via videoconferencing?: Yes List names and roles of persons who participated in consult:: ED and RN Telemedicine provider location:: [facility] Time Telemedicine consult began:: 02:11 Time Telemedicine consult completed:: 03:06
[2024-02-11 02:44] LABS: B. PARAPERTUSSIS- RESP PCR PAN NOT DETECTED; B. PERTUSSIS- RESP PCR PANEL NOT DETECTED; C. PNEUMONIAE- RESP PCR PANEL NOT DETECTED; CORONAVIRUS 229E-RESP PCR NOT DETECTED; CORONAVIRUS HKU1-RESP PCR NOT DETECTED; CORONAVIRUS NL63-RESP PCR NOT DETECTED; CORONAVIRUS OC43-RESP PCR NOT DETECTED; HUMAN METAPNEUMOVIRUS NOT DETECTED; INFLUENZA A- RESP PCR PANEL NOT DETECTED; INFLUENZA B - RESP PCR PANEL NOT DETECTED; M. PNEUMONIAE- RESP PCR PANEL NOT DETECTED; PARAINFLUENZA VIRUS 1 NOT DETECTED; PARAINFLUENZA VIRUS 2 NOT DETECTED; PARAINFLUENZA VIRUS 3 NOT DETECTED; PARAINFLUENZA VIRUS 4 NOT DETECTED; RHINOVIRUS/ENTEROVIRUS NOT DETECTED; RSV- RESP PCR PANEL NOT DETECTED; SARS-CoV-2 -RESP PCR PANEL NOT DETECTED
[2024-02-11] MEDS: iohexoL-300 100 ML VIAL IVP ONE (02:48)
[2024-02-11 02:54] LABS: TROPONIN I HIGH SENSITIVITY 10.4 ng/L (2.3-19.7)
[2024-02-11] MEDS: levETIRAcetam INJ 1,000 MG in SODIUM CHLORIDE 0.9% 100ML 100 ML IV SCH (02:54)
[2024-02-11 02:56] LABS: PROCALCITONIN < 0.05 ng/mL (<0.5)
[2024-02-11] MEDS: SODIUM CHLORIDE 0.9% 1,000 ML IV SCH (03:26)
[2024-02-11] MEDS: IPRATROPIUM/ALBUTEROL 3 ML NEB INH SCH (06:10)
[2024-02-11] MEDS: HEPARIN 5,000 UNIT/ML VIAL SUBQ SCH (08:27)
[2024-02-11] MEDS: METOPROLOL TARTRATE 25 MG TABLET PO SCH (08:28)
[2024-02-11] MEDS: ASPIRIN 325 MG TABLET PO SCH (08:28)
[2024-02-11] MEDS: SODIUM CHLORIDE FLUSH 0.9% 10 ML SYRINGE IVP SCH (08:38)
--- NOTE | 2024-02-11 09:22 | CT Report ---
PROCEDURE: Angio Chest INDICATIONS: hypoxia CONTRAST: Omni 300, 80mls TECHNIQUE: After the administration of intravenous contrast, 2 mm axial images were acquired from the pulmonary apices to the posterior costophrenic angles during the arterial phase. In addition, 1 mm lung kernel and 5 mm soft tissue kernel reconstructions were performed. 3-dimensional coronal oblique maximum int ensity projection (MIP) reformats, 8 mm axial MIP, and 5 mm coronal and sagittal MPR reformats were t hen performed through the thorax. For radiation dose reduction, the following was used: automated exp osure control, adjustment of mA and/or kV according to patient size. COMPARISON: CT chest with contrast dated 09/01/23. FINDINGS: Image quality: Excellent. Large vessels: Normal caliber pulmonary tree. No pulmonary emboli. No aortic dissection. No aortic an eurysm. Lungs and pleura: There is obstruction of right lower lobe bronchi with fluid and debris. Cannot excl ude endobronchial lesion, although there was no endobronchial lesion present in August,. There is associated patchy atelectasis and consolidation in the basilar right lower lobe. Mediastinum: Hear t size is normal. No pericardial effusion. No large vessel abnormality. No mediastinal adenopathy by size criteria. Chest wall and lower neck: Thyroid is unremarkable. No axillary or supraclavicular adenopathy by size . Bones: No aggressive osseous abnormality. Upper Abdomen: Pancreatic calcifications are consistent with chronic pancreatitis. Gallbladder is cur rently distended. IMPRESSION: 1. No acute pulmonary emboli. 2. Obstructed right lower lobe pulmonary bronchi with fluid and debris. Cannot exclude endobronchial lesion. 3. Associated right basilar patchy atelectasis and consolidation. 4. Findings consistent with chronic pancreatitis. Consider 3 month follow-up CT to document resolution of bronchial obstruction. Findings are concordant with preliminary interpretation provided by [facility]. Reviewed by: Delfino Thrasher MD on 02/11/2024 9:21 AM PDT Approved by: Delfino Thrasher MD on 02/11/2024 9:21 AM PDT Station ID: [id number]
[2024-02-11] MEDS: cefTRIAXone 1 GM in SODIUM CHLORIDE 0.9% MINIBAG 100 ML IV SCH (11:01)
--- NOTE | 2024-02-11 11:30 | PHARMACY PROGRESS NOTE ---
- Best Possible Medication History Admit Date and Time: 02/11/24 0223 Processed by: Pharmacy Medications reviewed in ED?: No Medication History completed: Yes Patient Interview: Completed Secondary Source(s): Written medication list, Insurance records As the person ultimately responsible for medication therapy, providers are able to order a medication from an existing home medication list in [facility] via the "Reconcile Routine" prior to Confirmation of that medication by office support associate. Such practice is discouraged except when the physician, in their clinical judgment, deems that a medical need exists for a medication without regard to previous use.
--- NOTE | 2024-02-11 11:34 | PROVIDER PROGRESS NOTE ---
Subjective - Prog Note Date Prog Note Date: 02/11/24 Prog Note Time: 09:00 - Subjective Pt reports feeling: No change Subjective: he is without complaints. He does not know the date he does not know where he is he is oriented to self only. He denies any pain anywhere and states he feels okay Speaking with his [id number] and sister, he had decrease in his mental status about 10 days ago. It was at that time they realized that his dementia was worsening. Current Medications - Current Medications Current Medications: Medications Trazodone HCl (Trazodone 50 Mg Tablet) 50 mg PO ONCE PRN PRN Reason: Insomnia Stop: 02/12/24 06:00 Acetaminophen (Acetaminophen 325 Mg Tablet) 650 mg PO Q4HR PRN PRN Reason: Pain 1 to 4, or Fever Albuterol/Ipratropium (Ipratropium/Albuterol 3 Ml Neb) 3 ml INH Q6HR [facility] Last Admin: 02/11/24 06:10 Dose: 3 ml Aspirin (Aspirin 325 Mg Tablet) 81 mg PO DAILYWM [facility] Last Admin: 02/11/24 08:28 Dose: 81 mg Azithromycin 500 mg/ Sodium (Chloride) 250 mls @ 250 mls/hr IV DAILY [facility] Stop: 02/13/24 09:59 Ceftriaxone Sodium 1 gm/ (Sodium Chloride) 100 mls @ 200 mls/hr IV DAILY [facility] Stop: 02/13/24 09:29 Last Admin: 02/11/24 11:01 Dose: 200 mls/hr Heparin Sodium (Porcine) (Heparin 5,000 Unit/Ml Vial) 5,000 unit SUBQ BID [facility] Last Admin: 02/11/24 08:27 Dose: 5,000 unit Levetiracetam 1,000 mg/ Sodium (Chloride) 110 mls @ 400 mls/hr IV BID [facility] Last Admin: 02/11/24 10:38 Dose: Infused Metoprolol Tartrate (Metoprolol Tartrate 25 Mg Tablet) 12.5 mg PO BID [facility] Last Admin: 02/11/24 08:28 Dose: 12.5 mg Ondansetron HCl (Ondansetron 4 Mg/2 Ml Vial) 4 mg IVP Q6HR PRN PRN Reason: Nausea / Vomiting Objective - Vital Signs/Intake & Output Vital Signs: Vital Signs x48h Temp Pulse Pulse Resp BP BP Pulse Ox 06/20/24 08:28 114/83 H 02/11/24 08:00 36.7 C 87 20 114/83 H 96 02/11/24 06:10 90 18 02/11/24 04:51 02/11/24 04:39 36.6 C 93 18 124/80 95 O2 Flow Rate 02/11/24 08:28 02/11/24 08:00 02/11/24 06:10 1 02/11/24 04:51 1 02/11/24 04:39 1 Intake & Output: Intake & Output 02/08/24 02/09/24 02/10/24 02/11/24 23:59 23:59 23:59 23:59 Intake Total 220 Balance 220 - Objective General Appearance: positive: No acute distress Eyes Bilateral: positive: Normal inspection ENT: positive: ENT inspection nml Neck: positive: Nml inspection Respiratory: positive: Chest non-tender, No respiratory distress, Rhonchi (right middle and lower lobe) Cardiovascular: positive: Regular rate & rhythm Abdomen: positive: Non-tender, Nml bowel sounds Back: positive: Nml inspection Skin: positive: Color nml Extremities: positive: Non-tender Neurologic/Psychiatric: positive: Disoriented to place, Disoriented to time, Slurred/abnml speech (word salad at times. He will start to speak a coherent sentence, then stops making sense.) - Lab Results Fish Bones: 02/11/24 01:30 02/11/24 01:30 Other Labs: Lab Results x24hrs 02/11/24 02/11/24 02/11/24 Range/Units 02:48 01:49 01:30 WBC (4.8-10.8) x10^3/uL RBC (4.70-6.10) 10^6/uL Hgb (14.0-18.0) g/dL Hct (42.0-52.0) % MCV (80.0-94.0) fL MCH (27.0-31.0) pg MCHC (32.0-36.0) g/dL RDW (12.0-15.0) % Plt Count (130-450) 10^3/uL MPV (7.4-11.4) fL Neut # (Auto) (1.5-6.6) 10^3/uL Lymph # (Auto) (1.5-3.5) 10^3/uL Garrard # (Auto) (0.0-1.0) 10^3/uL Eos # (Auto) (0.0-0.7) 10^3/uL Baso # (Auto) (0.0-0.1) 10^3/uL Absolute Nucleated RBC x10^3/uL Nucleated RBC % /100WBC D-Dimer 221.6 (200.0-255.0) ng/mL VBG pH 7.439 H (7.31-7.41) VBG pCO2 34.2 L (41-51) mmHg VBG pO2 84.0 H (25-47) mmHg VBG HCO3 22.7 L (23-28) mmol/L VBG Total CO2 23.7 L (24-29) mmol/L VBG O2 Saturation 96.4 H (60-80) % VBG Base Excess -0.9 (-2 - +2) mmol/L Sodium (135-145) mmol/L Potassium (3.5-4.5) mmol/L Chloride (101-111) mmol/L Carbon Dioxide (21-32) mmol/L Anion Gap (6-13) BUN (6-20) mg/dL Creatinine (0.6-1.3) mg/dL Estimated GFR (MDRD) (>89) Glucose (74-104) mg/dL Lactic Acid (0.5-2.2) mmol/L Calcium (8.5-10.3) mg/dL Total Bilirubin (0.2-1.0) mg/dL AST (10-42) IU/L ALT (10-60) IU/L Alkaline Phosphatase (42-121) IU/L Troponin I High Sens (2.3-19.7) ng/L B-Natriuretic Peptide 16 (5-100) pg/mL Total Protein (6.4-8.9) g/dL Albumin (3.2-5.5) g/dL Globulin (2.1-4.2) g/dL Albumin/Globulin Ratio (1.0-2.2) Procalcitonin Immunoas (<0.5) ng/mL Nasal Adenovirus (PCR) Nasal B. parapertussis DNA (PCR) Nasal Coronavir 229E PCR Nasal Coronavir HKU1 PCR Nasal Coronavir NL63 PCR Nasal Coronavir OC43 PCR Nasal Enterovir/Rhinovir PCR Nasal Influenza B PCR Nasal Influenza A PCR Nasal Parainfluen 1 PCR Nasal Parainfluen 2 PCR Nasal Parainfluen 3 PCR Nasal Parainfluen 4 PCR Nasal RSV (PCR) Nasal B.pertussis DNA PCR Nasal C.pneumoniae (PCR) Sami Human Metapneumo PCR Nasal M.pneumoniae (PCR) Nasal SARS-CoV-2 (PCR) 02/11/24 02/11/24 02/11/24 Range/Units 01:30 01:30 01:30 WBC (4.8-10.8) x10^3/uL RBC (4.70-6.10) 10^6/uL Hgb (14.0-18.0) g/dL Hct (42.0-52.0) % MCV (80.0-94.0) fL MCH (27.0-31.0) pg MCHC (32.0-36.0) g/dL RDW (12.0-15.0) % Plt Count (130-450) 10^3/uL MPV (7.4-11.4) fL Neut # (Auto) (1.5-6.6) 10^3/uL Lymph # (Auto) (1.5-3.5) 10^3/uL [place]arrard # (Auto) (0.0-1.0) 10^3/uL Eos # (Auto) (0.0-0.7) 10^3/uL Baso # (Auto) (0.0-0.1) 10^3/uL Absolute Nucleated RBC x10^3/uL Nucleated RBC % /100WBC D-Dimer (200.0-255.0) ng/mL VBG pH (7.31-7.41) VBG pCO2 (41-51) mmHg VBG pO2 (25-47) mmHg VBG HCO3 (23-28) mmol/L VBG Total CO2 (24-29) mmol/L VBG O2 Saturation (60-80) % VBG Base Excess (-2 - +2) mmol/L Sodium (135-145) mmol/L Potassium (3.5-4.5) mmol/L Chloride (101-111) mmol/L Carbon Dioxide (21-32) mmol/L Anion Gap (6-13) BUN (6-20) mg/dL Creatinine (0.6-1.3) mg/dL Estimated GFR (MDRD) (>89) Glucose (74-104) mg/dL Lactic Acid 1.0 (0.5-2.2) mmol/L Calcium (8.5-10.3) mg/dL Total Bilirubin (0.2-1.0) mg/dL AST (10-42) IU/L ALT (10-60) IU/L Alkaline Phosphatase (42-121) IU/L Troponin I High Sens 10.4 (2.3-19.7) ng/L B-Natriuretic Peptide (5-100) pg/mL Total Protein (6.4-8.9) g/dL Albumin (3.2-5.5) g/dL Globulin (2.1-4.2) g/dL Albumin/Globulin Ratio (1.0-2.2) Procalcitonin Immunoas < 0.05 (<0.5) ng/mL Nasal Adenovirus (PCR) NOT DETECTED Nasal B. parapertussis DNA (PCR) NOT DETECTED Nasal Coronavir 229E PCR NOT DETECTED Nasal Coronavir HKU1 PCR NOT DETECTED Nasal Coronavir NL63 PCR NOT DETECTED Nasal Coronavir OC43 PCR NOT DETECTED Nasal Enterovir/Rhinovir PCR NOT DETECTED Nasal Influenza B PCR NOT DETECTED Nasal Influenza A PCR NOT DETECTED Nasal Parainfluen 1 PCR NOT DETECTED Nasal Parainfluen 2 PCR NOT DETECTED Nasal Parainfluen 3 PCR NOT DETECTED Nasal Parainfluen 4 PCR NOT DETECTED Nasal RSV (PCR) NOT DETECTED Nasal B.pertussis DNA PCR NOT DETECTED Nasal C.pneumoniae (PCR) NOT DETECTED Sami Human Metapneumo PCR NOT DETECTED Nasal M.pneumoniae (PCR) NOT DETECTED Nasal SARS-CoV-2 (PCR) NOT DETECTED 02/11/24 02/11/24 Range/Units 01:30 01:30 WBC 6.1 (4.8-10.8) x10^3/uL RBC 3.61 L (4.70-6.10) 10^6/uL Hgb 12.0 L (14.0-18.0) g/dL Hct 36.2 L (42.0-52.0) % MCV 100.3 H (80.0-94.0) fL MCH 33.2 H (27.0-31.0) pg MCHC 33.1 (32.0-36.0) g/dL RDW 13.5 (12.0-15.0) % Plt Count 224 (130-450) 10^3/uL MPV 10.2 (7.4-11.4) fL Neut # (Auto) 3.8 (1.5-6.6) 10^3/uL Lymph # (Auto) 1.8 (1.5-3.5) 10^3/uL Garrard # (Auto) 0.5 (0.0-1.0) 10^3/uL Eos # (Auto) 0.0 (0.0-0.7) 10^3/uL Baso # (Auto) 0.0 (0.0-0.1) 10^3/uL Absolute Nucleated RBC 0.00 x10^3/uL Nucleated RBC % 0.0 /100WBC D-Dimer (200.0-255.0) ng/mL VBG pH (7.31-7.41) VBG pCO2 (41-51) mmHg VBG pO2 (25-47) mmHg VBG HCO3 (23-28) mmol/L VBG Total CO2 (24-29) mmol/L VBG O2 Saturation (60-80) % VBG Base Excess (-2 - +2) mmol/L Sodium 139 (135-145) mmol/L Potassium 3.9 (3.5-4.5) mmol/L Chloride 106 (101-111) mmol/L Carbon Dioxide 27 (21-32) mmol/L Anion Gap 6.0 (6-13) BUN 26 H (6-20) mg/dL Creatinine 0.9 (0.6-1.3) mg/dL Estimated GFR (MDRD) 82 L (>89) Glucose 133 H (74-104) mg/dL Lactic Acid (0.5-2.2) mmol/L Calcium 8.9 (8.5-10.3) mg/dL Total Bilirubin 0.3 (0.2-1.0) mg/dL AST 13 (10-42) IU/L ALT 11 (10-60) IU/L Alkaline Phosphatase 114 (42-121) IU/L Troponin I High Sens (2.3-19.7) ng/L B-Natriuretic Peptide (5-100) pg/mL Total Protein 6.8 (6.4-8.9) g/dL Albumin 3.9 (3.2-5.5) g/dL Globulin 2.9 (2.1-4.2) g/dL Albumin/Globulin Ratio 1.3 (1.0-2.2) Procalcitonin Immunoas (<0.5) ng/mL Nasal Adenovirus (PCR) Nasal B. parapertussis DNA (PCR) Nasal Coronavir 229E PCR Nasal Coronavir HKU1 PCR Nasal Coronavir NL63 PCR Nasal Coronavir OC43 PCR Nasal Enterovir/Rhinovir PCR Nasal Influenza B PCR Nasal Influenza A PCR Nasal Parainfluen 1 PCR Nasal Parainfluen 2 PCR Nasal Parainfluen 3 PCR Nasal Parainfluen 4 PCR Nasal RSV (PCR) Nasal B.pertussis DNA PCR Nasal C.pneumoniae (PCR) Sami Human Metapneumo PCR Nasal M.pneumoniae (PCR) Nasal SARS-CoV-2 (PCR) ABX Reporting Has patient been on IV antibiotics over the past 48 hours?: Yes Sepsis Event Note (H) - Evaluation Sepsis Documentation Tip Sheet: or even sister okay as de-escalating his CODE STATUS Current Stage of Sepsis: Ruled out (there is no leukosytosis, there is not increasing oxygen needs, there is not hypotension) Assessment/Plan - Problem List (1) Aspiration into lower respiratory tract Impression: CTA of the chest to rule out PE shows probable aspiration into the right middle lobe. Patient remains nontoxic in appearance. He does not have any leukocytosis. His vital signs are within normal limits he is not having increasing oxygen requirements he has oxygen saturation in the mid 90s on room air. He does however have these findings on CT which with combined with his history of seizure last night would be consistent with aspiration. Please see separate advance care planning note for details of conversation with family regarding his current status. (2) Altered mental status Impression: Change in mental status on top of end-stage dementia. Seems to be improving today with return back to his nonfunctional baseline. He failed nursing swallow screen this afternoon. Further evaluation is pending. Qualifiers: Altered mental status type: delirium Qualified Code(s): R41.0 - Disorientation, unspecified (3) Acute hypoxemic respiratory failure Impression: patient was initially hypoxic when he came in to the hospital. Overnight his respiratory status is improved and he is currently satting 95% on room air without tachypnea. On exam he has rhonchi in the right middle and lower lung arce. CTA was completed this morning as ordered by the night telemedicine hospitalist CTA shows obstruction of the right lower lobe bronchi with fluid and debris. This is likely aspiration. Probably secondary to the breakthrough seizure that he had last night. He lives in a long-term care facility. He does not bathe or dress himself. he is in bed all the time. he is wheelchair-bound. He does not walk. This is according to his sister, who I spoke with on the phone this AM> He does continue to recognize his family. We will address advance care planning later this afternoon when family comes to visit. His sister states his code status is DO NOT RESUSITATE when I discussed this with her this morning, However when I discussed it with her this afternoon she reverts to stating that he should be full code. She would like to discuss further with family. Please see details in advance care planning note.. (4) Seizure disorder Impression: Keppra increased from 750 mg twice daily to 1000 twice daily. Unfortunately it looks like he had an aspiration event associated with the seizure. He is on seizure precautions here. No further seizure activity has been observed. (5) Hyperglycemia Impression: 133 at the time of admission. no known history of DM. could be due to stress as he had just had a seizure. Will observe on BMP in AM, and decide if A1C is warranted.
[2024-02-11] MEDS: AZITHROMYCIN INJ 500 MG in SODIUM CHLORIDE 0.9% 250 ML IV SCH (12:25)
[2024-02-11] MEDS ORDERED: IPRATROPIUM/ALBUTEROL 3 ML NEB INH PRN (13:00)
[2024-02-11] MEDS ORDERED: RISPERIDONE 0.5 MG PO PRN (14:19)
[2024-02-11] MEDS ORDERED: polyethylene glycoL 3350 17 GM PACKET PO PRN (14:19)
[2024-02-11 15:29] LABS: BILIRUBIN,URINE NEGATIVE (NEGATIVE); GLUCOSE, URINE (UA) NEGATIVE (NEGATIVE); KETONES,URINE (UA) NEGATIVE (NEGATIVE); LEUKOCYTE ESTERASE, URINE NEGATIVE (NEGATIVE); NITRITE,URINE NEGATIVE (NEGATIVE); OCCULT BLOOD,URINE LARGE (NEGATIVE); PH,URINE 5.5 PH (5.0-7.5); PROTEIN,URINE NEGATIVE (NEGATIVE); UROBILINOGEN,URINE 1 (NORMAL) E.U./dL (NORMAL)
[2024-02-11 15:41] LABS: CLARITY,URINE CLEAR (CLEAR); EPITHELIAL CELLS,UR FEW Transitional /HPF (<= Few); RBC,URINE TNTC /HPF (0-5); SQUAMOUS EPITHELIAL CELL,UR FEW Squamous (<= Few)
[2024-02-11 15:42] LABS: BACTERIA,URINE None Seen /HPF (None Seen)
--- NOTE | 2024-02-11 16:04 | ADVANCE CARE PLANNING NOTE ---
Advance Care Planning - Planning Encounter Date: 02/11/24 Time: 16:02 Purpose: there is a previous POLST on the chart signed by the patient that states full code in 2020. Additionally, there is a niece listed on the chart as next of kin. When questioned by the family they do not feel that this person should be the next of kin. Parties in Attendance: Aniya Sarmiento, OSMANY, Bhanu Kendalldella, patient's sister. Decisional Capacity of the Patient: Not decisional - Diagnosis for Encounter (2) Altered mental status Qualifiers: Altered mental status type: delirium Qualified Code(s): R41.0 - Disorientation, unspecified - Encounter Subjective/Patient's Story: Larry, as the patient is known, has a history of polysubstance abuse. He is estranged from one of his daughters, however his eldest daughter Stephanei Villegas still has contact with her father occasionally. He has remained close to his sister Vladimir throughout his life and her Spenser. But she has always been 1 to tell tall tales and perhaps in his personal life has been rather manipulative of others. Due to his inability to care for himself he has been admitted to a care facility. Prakash Gilbert visited with him about 10 days ago and noted that his mental status was much different than it had been previously it was about then that they noticed that his speech was garbled and he was not making a lot of sense. He does however continue to recognize Spenser and Vladimir and is able to name them. Vladimir is his older sister and has always looked out for him throughout his life. She is very sad about his stage of dementia and does not understand why God would allow something like this to happen Objective/Medical Story: but she was admitted to the hospital last night after a seizure. Workup has revealed a probable aspiration pneumonia. He remains hemodynamically stable and confused oriented only to person. His dementia has declined in recent times. He is incontinent, spends all of his time in bed and does not walk is either in a wheelchair in his bed. It is unclear what caused his seizure yesterday Goals of Care: goals of care at this time are overall not clear. There is a full treatment POLST filed on the chart in 2020. Larry has had significant decrease in his quality of life. I reviewed the POLST form with his Sister Vladimir and she would like to discuss with family prior to changing his status. I reviewed with her that a resuscitation event would be highly unlikely to return Larry to his previous level of functioning. I relayed to her that his dementia is progressing. She does not feel comfortable changing his CODE STATUS until she converse with other family members. Plan: Patient will remain full code with all interventions at this time. Additional Discussion: I had a long discussion with Vladimir regarding her brothers social history. And regarding his quality of life. She admits that his quality of life is much decreased from what he would want. It is very difficult for her to make this decision and she needs to think about it further. Code Status: Attempt Resuscitation Time spent on advance care plannin
[2024-02-11] MEDS: risperiDONE 0.25 MG TABLET PO PRN (17:14)
[2024-02-11] MEDS ORDERED: ZINC OXIDE 12% OINT 57 GM TUBE TOP PRN (20:39)
[2024-02-11] MEDS: busPIRone 5 MG TABLET PO SCH (20:41)
[2024-02-11] MEDS: PRAZOSIN 1 MG CAPSULE PO SCH (20:41)
[2024-02-11] MEDS: traZODone 50 MG TABLET PO PRN (20:41)
[2024-02-11] MEDS: OLANZapine ODT 5 MG TABLET TL SCH (20:42)
[2024-02-11] MEDS: DULoxetine 30 MG CAPSULE PO SCH (20:43)
[2024-02-11] MEDS ORDERED: OLANZAPINE 2.5 MG PO SCH (21:00)
[2024-02-11] MEDS: GABAPENTIN 300 MG CAPSULE PO SCH (21:36)
[2024-02-12 05:42] LABS: HCT - HEMATOCRIT 33.8 % (42.0-52.0); HGB - HEMOGLOBIN 10.8 g/dL (14.0-18.0); MEAN CORPUSCULAR HEMOGLOBIN 32.7 pg (27.0-31.0); MEAN CORPUSCULAR VOLUME 102.4 fL (80.0-94.0); MEAN PLATELET VOLUME 10.3 fL (7.4-11.4); RED BLOOD COUNT 3.3 10^6/uL (4.70-6.10); RED CELL DISTRIBUTION WIDTH 13.7 % (12.0-15.0); WHITE BLOOD COUNT 4.9 x10^3/uL (4.8-10.8)
[2024-02-12 06:02] LABS: ALBUMIN 3.8 g/dL (3.2-5.5); ALBUMIN/GLOBULIN RATIO 1.5 (1.0-2.2); BILIRUBIN,TOTAL 0.5 mg/dL (0.2-1.0); CALCIUM 9.2 mg/dL (8.5-10.3); CREATININE 0.7 mg/dL (0.6-1.3); POTASSIUM 3.9 mmol/L (3.5-4.5); TOTAL PROTEIN 6.4 g/dL (6.4-8.9)
[2024-02-12 06:13] LABS: THYROID STIMULATING HORMONE 0.96 uIU/mL (0.34-5.60)
[2024-02-12] MEDS: PANTOPRAZOLE 40 MG TABLET PO SCH (06:46)
[2024-02-12] MEDS: FERROUS SULFATE 325 MG TABLET PO SCH (08:36)
[2024-02-12] MEDS ORDERED: OMEPRAZOLE MAGNESIUM 20 MG PO SCH (09:00)
--- NOTE | 2024-02-12 14:28 | PROVIDER PROGRESS NOTE ---
Subjective - Prog Note Date Prog Note Date: 02/12/24 Prog Note Time: 14:25 - Subjective Subjective: The patient is a 78-year-old gentleman who resides in a custodial facility. He has a history of alcohol abuse and methamphetamine use. He has underlying dementia. He has a known seizure disorder maintained on Keppra at home. Family noticed that the patient has had a change in his mentation over the past couple of weeks. He was brought to the emergency room with possibly having a breakthrough seizure and he was acutely encephalopathic. He was hypoxic at the time of admission as well. Overall the patient has improved a bit. He appears to have some underlying dysphagia and is not swallowing well per the nursing staff. Family members are discussing goals of care at this point. When I went to see him today he was awake and alert but not oriented. A good review of systems could not be Current Medications - Current Medications Current Medications: Acetaminophen 650 mg p.o. every 4 hours as needed DuoNebs 3 mL inhalation every 4 hours as needed Aspirin 81 mg daily Azithromycin 500 mg IV daily BuSpar 5 mg p.o. twice daily Ceftriaxone 1 g IV daily Duloxetine 30 mg p.o. nightly Ferrous sulfate 325 mg p.o. daily Gabapentin 300 mg p.o. 3 times daily Heparin 5000 units SQ twice daily Keppra 1000 mg IV twice daily Metoprolol tartrate 12.5 mg p.o. twice daily Olanzapine 2.5 mg ODT nightly Zofran 4 mg IV every 6 hours as needed Protonix 40 mg daily MiraLAX 17 g p.o. daily Prazosin 2 mg p.o. nightly Risperdal 0.5 mg p.o. twice daily as needed Zyprexa 2.5 mg p.o. nightly Objective - Vital Signs/Intake & Output Reviewed Vital Signs: Yes Vital Signs: Vital Signs x48h Temp Pulse Resp BP Pulse Ox 02/12/24 08:27 36.6 C 64 18 125/69 95 Intake & Output: Intake & Output 02/09/24 02/10/24 02/11/24 02/12/24 23:59 23:59 23:59 23:59 Intake Total 1080 1580 Balance 1080 1580 - Objective General Appearance: positive: No acute distress, Alert, Other (Not oriented) Eyes Bilateral: positive: Normal inspection ENT: positive: ENT inspection nml Neck: positive: Nml inspection Respiratory: positive: Chest non-tender, No respiratory distress, Breath sounds nml Cardiovascular: positive: Regular rate & rhythm, No murmur, No gallop. negative: Friction rub Abdomen: positive: Non-tender, No organomegaly, Nml bowel sounds Skin: positive: Color nml, No rash, Warm, Dry Extremities: positive: Non-tender Neurologic/Psychiatric: positive: Disoriented to place, Disoriented to time, Weakness - Lab Results Fish Bones: 02/12/24 05:22 02/12/24 05:22 Other Labs: Lab Results x24hrs 02/12/24 02/12/24 02/11/24 Range/Units 05:22 05:22 14:15 WBC 4.9 (4.8-10.8) x10^3/uL RBC 3.30 L (4.70-6.10) 10^6/uL Hgb 10.8 L (14.0-18.0) g/dL Hct 33.8 L (42.0-52.0) % MCV 102.4 H (80.0-94.0) fL MCH 32.7 H (27.0-31.0) pg MCHC 32.0 (32.0-36.0) g/dL RDW 13.7 (12.0-15.0) % Plt Count 175 (130-450) 10^3/uL MPV 10.3 (7.4-11.4) fL Sodium 139 (135-145) mmol/L Potassium 3.9 (3.5-4.5) mmol/L Chloride 107 (101-111) mmol/L Carbon Dioxide 29 (21-32) mmol/L Anion Gap 3.0 L (6-13) BUN 22 H (6-20) mg/dL Creatinine 0.7 (0.6-1.3) mg/dL Estimated GFR (MDRD) 109 (>89) Glucose 101 (74-104) mg/dL Calcium 9.2 (8.5-10.3) mg/dL Total Bilirubin 0.5 (0.2-1.0) mg/dL AST 13 (10-42) IU/L ALT 10 (10-60) IU/L Alkaline Phosphatase 103 (42-121) IU/L Total Protein 6.4 (6.4-8.9) g/dL Albumin 3.8 (3.2-5.5) g/dL Globulin 2.6 (2.1-4.2) g/dL Albumin/Globulin Ratio 1.5 (1.0-2.2) TSH 0.96 (0.34-5.60) uIU/mL Urine Color DARK YELLOW Urine Clarity CLEAR (CLEAR) Urine pH 5.5 (5.0-7.5) PH Ur Specific [place] 1.025 (1.002-1.030) Urine Protein NEGATIVE (NEGATIVE) mg/dL Urine Glucose (UA) NEGATIVE (NEGATIVE) mg/dL Urine Ketones NEGATIVE (NEGATIVE) mg/dL Urine Occult Blood LARGE H (NEGATIVE) Urine Nitrite NEGATIVE (NEGATIVE) Urine Bilirubin NEGATIVE (NEGATIVE) Urine Urobilinogen 1 (NORMAL) (NORMAL) E.U./dL Ur Leukocyte Esterase NEGATIVE (NEGATIVE) Urine RBC TNTC H (0-5) /HPF Urine WBC 6-10 H (0-3) /HPF Ur Epithelial Cells FEW Transitional (<= Few) /HPF Ur Squamous Epith Cells FEW Squamous (<= Few) Urine Bacteria None Seen (None Seen) /HPF Urine Culture Comments NOT INDICATED Nasal Screen MRSA (PCR) (NEGATIVE) 02/11/24 Range/Units 14:07 WBC (4.8-10.8) x10^3/uL RBC (4.70-6.10) 10^6/uL Hgb (14.0-18.0) g/dL Hct (42.0-52.0) % MCV (80.0-94.0) fL MCH (27.0-31.0) pg MCHC (32.0-36.0) g/dL RDW (12.0-15.0) % Plt Count (130-450) 10^3/uL MPV (7.4-11.4) fL Sodium (135-145) mmol/L Potassium (3.5-4.5) mmol/L Chloride (101-111) mmol/L Carbon Dioxide (21-32) mmol/L Anion Gap (6-13) BUN (6-20) mg/dL Creatinine (0.6-1.3) mg/dL Estimated GFR (MDRD) (>89) Glucose (74-104) mg/dL Calcium (8.5-10.3) mg/dL Total Bilirubin (0.2-1.0) mg/dL AST (10-42) IU/L ALT (10-60) IU/L Alkaline Phosphatase (42-121) IU/L Total Protein (6.4-8.9) g/dL Albumin (3.2-5.5) g/dL Globulin (2.1-4.2) g/dL Albumin/Globulin Ratio (1.0-2.2) TSH (0.34-5.60) uIU/mL Urine Color Urine Clarity (CLEAR) Urine pH (5.0-7.5) PH Ur Specific [place] (1.002-1.030) Urine Protein (NEGATIVE) mg/dL Urine Glucose (UA) (NEGATIVE) mg/dL Urine Ketones (NEGATIVE) mg/dL Urine Occult Blood (NEGATIVE) Urine Nitrite (NEGATIVE) Urine Bilirubin (NEGATIVE) Urine Urobilinogen (NORMAL) E.U./dL Ur Leukocyte Esterase (NEGATIVE) Urine RBC (0-5) /HPF Urine WBC (0-3) /HPF Ur Epithelial Cells (<= Few) /HPF Ur Squamous Epith Cells (<= Few) Urine Bacteria (None Seen) /HPF Urine Culture Comments Nasal Screen MRSA (PCR) NEGATIVE (NEGATIVE) ABX Reporting Has patient been on IV antibiotics over the past 48 hours?: Yes Sepsis Event Note (H) - Evaluation Current Stage of Sepsis: Ruled out (there is no leukosytosis, there is not increasing oxygen needs, there is not hypotension) Assessment/Plan - Problem List (1) Acute hypoxemic respiratory failure Impression: Secondary to probable aspiration pneumonia. Resolved (2) Aspiration pneumonia Impression: Continue IV azithromycin and IV ceftriaxone for now. He is improving (3) Acute metabolic encephalopathy Impression: Likely multifactorial secondary to possible seizure, possible aspiration pneumonia. Improved. He appears to be back to his most recent cognitive baseline per the family (4) Seizure disorder Impression: Continue Keppra 500 mg IV every 12 hours. If he continues to swallow better we will change him over to p.o. tomorrow (5) Dysphagia Impression: He passed his bedside swallow exam today and he currently is on a dysphagia diet. Speech therapy will formally evaluate. His dysphagia does seem to be improving with improvement to his mentation. (6) Macrocytic anemia Impression: Stable. He also has a history of iron deficiency. Continue ferrous sulfate daily (7) Hematuria Impression: Further workup can be performed as an outpatient. (8) Positive blood culture Impression: The patient had 1 out of 2 blood cultures positive for coagulase-negative staph. I suspect this is a contaminant. Repeat blood cultures have been ordered to confirm (9) Dementia Impression: I am going to try to get in touch with the family to have further discussions regarding goals of care. Will reach out today. According to the notes from yesterday the patient has had worsening mentation over the past several weeks. He has had some behavioral disturbances. He will continue current regimen which seems to be controlling his behavior well (10) Hyperglycemia Impression: Improved. Likely reactive. (11) Hyperlipidemia Impression: Currently on no medical therapy. (12) Mild protein-calorie malnutrition Impression: Continue to encourage good p.o. intake. (13) Abnormal chest CT Impression: The patient had a CT angiography of the chest which revealed no evidence of pulmonary embolism. The radiologist indicated that they could not rule out an endobronchial lesion. The patient CT scan was reviewed and it was felt that this is more likely atelectasis. He should have a repeat CT scan in about 3 months to follow-up. However discussions are ongoing with the patient's family regarding goals of care. There is a possibility he could be transitioning to hospice. No further workup at this time. Time spent: 35 minutes
[2024-02-12] MEDS: ACETAMINOPHEN 325 MG TABLET PO PRN (18:29)
[2024-02-13 04:42] LABS: EOSINOPHILS % (AUTO) 0.5 %; HCT - HEMATOCRIT 35.9 % (42.0-52.0); HGB - HEMOGLOBIN 11.5 g/dL (14.0-18.0); LYMPHOCYTES # (AUTO) 2.7 10^3/uL (1.5-3.5); LYMPHOCYTES % (AUTO) 49.5 %; MEAN CORPUSCULAR HEMOGLOBIN 32.7 pg (27.0-31.0); MEAN PLATELET VOLUME 10.7 fL (7.4-11.4); MONOCYTES # (AUTO) 0.3 10^3/uL (0.0-1.0); MONOCYTES % (AUTO) 6.1 %; NEUTROPHILS # (AUTO) 2.4 10^3/uL (1.5-6.6); NEUTROPHILS % (AUTO) 43.7 %; PLT - PLATELET COUNT 199 10^3/uL (130-450); RED BLOOD COUNT 3.52 10^6/uL (4.70-6.10); RED CELL DISTRIBUTION WIDTH 13.6 % (12.0-15.0); WHITE BLOOD COUNT 5.5 x10^3/uL (4.8-10.8)
[2024-02-13 05:01] LABS: CALCIUM 9.1 mg/dL (8.5-10.3); CREATININE 0.8 mg/dL (0.6-1.3); MAGNESIUM 1.6 mg/dL (1.7-2.3); PHOSPHORUS 3.1 mg/dL (2.5-5.0); POTASSIUM 3.7 mmol/L (3.5-4.5)
[2024-02-13] MEDS ORDERED: SODIUM CHLORIDE 0.9% 50 ML IV ONE (07:26)
[2024-02-13] MEDS: MAGNESIUM SULFATE 3 GM in SODIUM CHLORIDE 0.9% 50 ML IV ONE (08:13)
[2024-02-13] MEDS: ASPIRIN CHEW 81 MG TABLET PO SCH (09:13)
--- NOTE | 2024-02-13 10:14 | PROVIDER PROGRESS NOTE ---
Subjective - Prog Note Date Prog Note Date: 02/13/24 Prog Note Time: 15:00 - Subjective Pt reports feeling: Improved Current Medications - Current Medications Current Medications: Acetaminophen 650 mg p.o. every 4 hours as needed DuoNebs 3 mL inhalation every 4 hours as needed Aspirin 81 mg daily BuSpar 5 mg p.o. twice daily Duloxetine 30 mg p.o. nightly Ferrous sulfate 325 mg p.o. daily Gabapentin 300 mg p.o. 3 times daily Heparin 5000 units SQ twice daily Keppra 1000 mg p.o. twice daily Metoprolol tartrate 12.5 mg p.o. twice daily Olanzapine 2.5 mg ODT nightly Zofran 4 mg IV every 6 hours as needed Protonix 40 mg daily MiraLAX 17 g p.o. daily Prazosin 2 mg p.o. nightly Risperdal 0.5 mg p.o. twice daily as needed Zyprexa 2.5 mg p.o. nightly Objective - Vital Signs/Intake & Output Reviewed Vital Signs: Yes Vital Signs: Vital Signs x48h Temp Pulse Resp BP BP Pulse Ox 02/13/24 08:20 129/69 02/13/24 08:00 36.7 C 72 16 121/69 92 02/13/24 06:16 37.1 C 81 12 140/74 H 92 Intake & Output: Intake & Output 02/10/24 02/11/24 02/12/24 02/13/24 23:59 23:59 23:59 23:59 Intake Total 1080 2287 880 Balance 1080 2287 880 - Objective General Appearance: positive: No acute distress, Alert (He is alert and oriented x 2) Eyes Bilateral: positive: Normal inspection ENT: positive: ENT inspection nml Neck: positive: Nml inspection Respiratory: positive: Chest non-tender, No respiratory distress, Breath sounds nml Cardiovascular: positive: Regular rate & rhythm, No murmur, No gallop. negative: Friction rub Abdomen: positive: Non-tender, No organomegaly, Nml bowel sounds Skin: positive: Color nml, No rash, Warm Extremities: positive: Non-tender, Nml appearance Neurologic/Psychiatric: positive: Disoriented to place, Disoriented to time - Lab Results Fish Bones: 02/13/24 04:30 02/13/24 04:30 Other Labs: Lab Results x24hrs 02/13/24 02/13/24 Range/Units 04:30 04:30 WBC 5.5 (4.8-10.8) x10^3/uL RBC 3.52 L (4.70-6.10) 10^6/uL Hgb 11.5 L (14.0-18.0) g/dL Hct 35.9 L (42.0-52.0) % MCV 102.0 H (80.0-94.0) fL MCH 32.7 H (27.0-31.0) pg MCHC 32.0 (32.0-36.0) g/dL RDW 13.6 (12.0-15.0) % Plt Count 199 (130-450) 10^3/uL MPV 10.7 (7.4-11.4) fL Neut # (Auto) 2.4 (1.5-6.6) 10^3/uL Lymph # (Auto) 2.7 (1.5-3.5) 10^3/uL Wells # (Auto) 0.3 (0.0-1.0) 10^3/uL Eos # (Auto) 0.0 (0.0-0.7) 10^3/uL Baso # (Auto) 0.0 (0.0-0.1) 10^3/uL Absolute Nucleated RBC 0.00 x10^3/uL Nucleated RBC % 0.0 /100WBC Sodium 141 (135-145) mmol/L Potassium 3.7 (3.5-4.5) mmol/L Chloride 109 (101-111) mmol/L Carbon Dioxide 27 (21-32) mmol/L Anion Gap 5.0 L (6-13) BUN 18 (6-20) mg/dL Creatinine 0.8 (0.6-1.3) mg/dL Estimated GFR (MDRD) 94 (>89) Glucose 100 (74-104) mg/dL Calcium 9.1 (8.5-10.3) mg/dL Phosphorus 3.1 (2.5-5.0) mg/dL Magnesium 1.6 L (1.7-2.3) mg/dL Albumin 4.0 (3.2-5.5) g/dL ABX Reporting Has patient been on IV antibiotics over the past 48 hours?: No Sepsis Event Note (H) - Evaluation Current Stage of Sepsis: Ruled out (there is no leukosytosis, there is not increasing oxygen needs, there is not hypotension) Assessment/Plan - Problem List (2) Aspiration pneumonia Impression: At this point the patient is improved and his antibiotic therapy has been stopped. (3) Acute metabolic encephalopathy Impression: Multifactorial secondary to underlying infection and possible breakthrough seizure. Resolved. He is back to his cognitive baseline (4) Seizure disorder Impression: At home the patient took Keppra 750 mg p.o. twice daily. He had a breakthrough seizure prompting this hospitalization. Will increase his Keppra to 1000 mg twice daily. I am stopping his IV Keppra today and changing him to p.o. (5) Dysphagia Impression: Improved. Continue modified diet (6) Macrocytic anemia Impression: Stable. He also has iron deficiency. Continue ferrous sulfate (7) Hematuria Impression: The patient's family and healthcare power of prosecuting attorney is leaning towards hospice. If they change their mind further workup for this could be done as an outpatient. (8) Positive blood culture Impression: 1 out of 2 blood cultures positive for Staph epidermidis. This is likely a contaminant. No further workup (10) Hyperglycemia Impression: Improved. Likely reactive (11) Hyperlipidemia Impression: Currently on no medical therapy (12) Mild protein-calorie malnutrition Impression: Encourage good p.o. intake (13) Abnormal chest CT Impression: The patient had a CT angiography of the chest which revealed no evidence of pulmonary embolism. The radiologist indicated that they could not rule out an endobronchial lesion. The patient CT scan was reviewed and it was felt that this is more likely atelectasis. He should have a repeat CT scan in about 3 months to follow-up. However discussions are ongoing with the patient's family regarding goals of care. There is a possibility he could be transitioning to hospice. No further workup at this time. Time spent 35 minutes
--- NOTE | 2024-02-13 10:30 | ADVANCE CARE PLANNING NOTE ---
Advance Care Planning - Planning Encounter Date: 02/13/24 Time: 10:30 Purpose: Follow up regarding goals of care Parties in Attendance: Vladimir Baezanelkendra who is the healthcare POA. She states her Spenser is also able to make decisions Decisional Capacity of the Patient: The patient has underlying dementia and cannot make decisions for himself - Encounter Subjective/Patient's Story: The patient is a 78-year-old gentleman who resides in a half-way facility. He has a history of alcohol abuse and methamphetamine use. He has underlying dementia. He has a known seizure disorder maintained on Keppra at home. Family noticed that the patient has had a change in his mentation over the past couple of weeks. He was brought to the emergency room with possibly having a breakthrough seizure and he was acutely encephalopathic. He was hypoxic at the time of admission as well. It was felt that he had aspirated and he has been treated for aspiration pneumonia Goals of Care: I spoke to the patient's Sister Vladimir who is the healthcare power of gravity meter observer. She states that the patient's memory issues have been worsening over the past 2 years and at this point he is now bedbound and unable to ambulate. She is aware that he is declining and would like to focus on palliative care and hospice going forward. However at this point she is reluctant to change his CODE STATUS to a DNR without the input of his daughter. She has made multiple phone calls to the daughter who has not answered or returned the calls. The patient's daughter is estranged from her father. Vladimir is aware that she may need to make this decision without the input of the daughter but she is hoping to get her blessing. She is requesting that the patient be transition to hospice at the facility. This will not be able to be set up until later in the week. She is aware that she will have to make a decision regarding his CODE STATUS at that time as he will not be able to be on hospice is a full code. Further follow-up is necessary. She is going to try to get in touch with the patient's daughter and will make a decision in the near future. Plan: The bottle caser are tentatively setting up hospice at the facility. The patient's sister will need to make a decision regarding his CODE STATUS before this can be set up. The earliest will be set up will be towards the end of next week. Code Status: Attempt Resuscitation (For now) Time spent on advance care plannin minutes
--- NOTE | 2024-02-13 10:48 | Discharge Plan ---
Discharge Plan for SNF / [facility] - Discharge Plan And Transition Orders Problem Reviewed?: Yes Disposition: 03 SNF DC/Xfer Condition: Fair Allergies and Adverse Reactions: Allergies Allergy/AdvReac Type Severity Reaction Status Date / Time No Known Drug Allergies Allergy Verified 02/11/24 01:40 Health Concerns: Worsening dementia and dysphagia Assessment: Stable for discharge back to his facility - SNF / [facility] Transition Orders Admit to (Facility): [facility] Diagnosis: 1. Acute hypoxic respiratory failure Secondary to aspiration event and aspiration pneumonia. Resolved 2. Aspiration pneumonia The patient has completed a course of antibiotic therapy 3. Acute metabolic encephalopathy Multifactorial secondary to underlying infection and possible breakthrough seizure. Resolved. He is back to his cognitive baseline 4. Seizure disorder His Keppra has been increased to 1000 mg p.o. twice daily. He had a breakthrough seizure prompting this admission. 5. Dysphagia Somewhat improved. Continue modified diet 6. Macrocytic anemia along with iron deficiency anemia Stable. Continue ferrous sulfate 7. Hematuria The patient's family and healthcare power of tax associate attorney is leaning towards hospice which is tentatively being set up at discharge. If they change their mind further workup for this can be obtained as an outpatient 8. Positive blood culture 1 out of 2 blood cultures positive for Staph epidermidis. This is likely contaminant. No further workup 9. Hyperglycemia Improved. Likely reactive 10. History of hyperlipidemia Currently on no medical therapy 11. Mild protein calorie malnutrition Continue to encourage good p.o. intake. 12. Abnormal chest CT The patient had a CT angiography of the chest which revealed no evidence of pulmonary embolism. The radiologist indicated that they could not rule out an endobronchial lesion. The patient CT scan was reviewed and it was felt that this was more likely atelectasis. The family is leaning towards hospice. They will make a decision for definitively within the next week. If they put off pursuing hospice the patient should have a repeat CT scan in 3 months. Medicare Certification Statement: I certify that [facility] is medically necessary on a continuing basis for any of the conditions for which she/he is receiving care during hospitalization. Notify PCP of admission and forward orders to primary provider for signature. Weight on admission and: Weekly Other Notification Orders: Call PCP immediately if patient develops dyspnea, chest pain/tightness or edema. Additional Bowel Program Orders: If no BM after 2 days, nurse may give M.O.M. 30ml PO PRN and/or ducolax Supp 1 [place] and/or MARTHA 250mg P.O., and/or senna 1-2 tabs PO. On day 3 nurse may give repeat above order until residents constipation is resolved. Medication Orders: PLEASE REFER TO THE DISCHARGE MEDICATION LIST.
--- NOTE | 2024-02-13 10:56 | Discharge Plan ---
Discharge Plan for SNF / [facility] - Discharge Plan And Transition Orders Problem Reviewed?: Yes Disposition: 03 SNF DC/Xfer Condition: Fair Allergies and Adverse Reactions: Allergies Allergy/AdvReac Type Severity Reaction Status Date / Time No Known Drug Allergies Allergy Verified 02/11/24 01:40 Health Concerns: Worsening dementia and dysphagia Assessment: Stable for discharge back to his facility - SNF / GROUP HOME Transition Orders Admit to (Facility): [facility] Dis[facility] Diagnosis: 1. Acute hypoxic respiratory failure Secondary to aspiration event and aspiration pneumonia. Resolved 2. Aspiration pneumonia The patient has completed a course of antibiotic therapy 3. Acute metabolic encephalopathy Multifactorial secondary to underlying infection and possible breakthrough seizure. Resolved. He is back to his cognitive baseline 4. Seizure disorder His Keppra has been increased to 1000 mg p.o. twice daily. He had a breakthrough seizure prompting this admission. 5. Dysphagia Somewhat improved. Continue modified diet 6. Macrocytic anemia along with iron deficiency anemia Stable. Continue ferrous sulfate 7. Hematuria The patient's family and healthcare power of ip technology transactions attorney is leaning towards hospice which is tentatively being set up at discharge. If they change their mind further workup for this can be obtained as an outpatient 8. Positive blood culture 1 out of 2 blood cultures positive for Staph epidermidis. This is likely contaminant. No further workup 9. Hyperglycemia Improved. Likely reactive 10. History of hyperlipidemia Currently on no medical therapy 11. Mild protein calorie malnutrition Continue to encourage good p.o. intake. 12. Abnormal chest CT The patient had a CT angiography of the chest which revealed no evidence of pulmonary embolism. The radiologist indicated that they could not rule out an endobronchial lesion. The patient CT scan was reviewed and it was felt that this was more likely atelectasis. The family is leaning towards hospice. They will make a decision for definitively within the next week. If they put off pursuing hospice the patient should have a repeat CT scan in 3 months. Medicare Certification Statement: I certify that [facility] is medically necessary on a continuing basis for any of the conditions for which she/he is receiving care during hospitalization. Notify PCP of admission and forward orders to primary provider for signature. Weight on admission and: Weekly Other Notification Orders: Call PCP immediately if patient develops dyspnea, chest pain/tightness or edema. House Bowel Program: Yes Additional Bowel Program Orders: If no BM after 2 days, nurse may give M.O.M. 30ml PO PRN and/or ducolax Supp 1 [place] and/or MARTHA 250mg P.O., and/or senna 1-2 tabs PO. On day 3 nurse may give repeat above order until residents constipation is resolved. Annual Influenza Vaccine (between Apr 24 and November 21): Yes Oxygen Orders: As needed Lab Tests or X-ray Orders: None Medication Orders: PLEASE REFER TO THE DISCHARGE MEDICATION LIST. - Medications New Prescriptions: levETIRAcetam [Keppra] 1,000 mg PO BID #240 tab
--- NOTE | 2024-02-13 11:10 | DISCHARGE SUMMARY ---
Discharge Summary Admit Date: 02/11/24 Discharge Date: 02/13/24 Discharging Provider: Bernadette Auguste PA-C Primary Care Provider: Staff Code Status: Attempt Resuscitation Condition at Discharge: Fair Discharge Disposition: 03 SNF DC/Xfer - DIAGNOSES Discharge Diagnoses with Status of Each Condition: 1. Acute hypoxic respiratory failure Secondary to aspiration event and aspiration pneumonia. Resolved 2. Aspiration pneumonia The patient has completed a course of antibiotic therapy 3. Acute metabolic encephalopathy Multifactorial secondary to underlying infection and possible breakthrough seizure. Resolved. He is back to his cognitive baseline 4. Seizure disorder His Keppra has been increased to 1000 mg p.o. twice daily. He had a breakthrough seizure prompting this admission. 5. Dysphagia Somewhat improved. Continue modified diet 6. Macrocytic anemia along with iron deficiency anemia Stable. Continue ferrous sulfate 7. Hematuria The patient's family and healthcare power of criminal defense attorney is leaning towards hospice which is tentatively being set up at discharge. If they change their mind further workup for this can be obtained as an outpatient 8. Positive blood culture 1 out of 2 blood cultures positive for Staph epidermidis. This is likely conta minant. No further workup 9. Hyperglycemia Improved. Likely reactive 10. History of hyperlipidemia Currently on no medical therapy 11. Mild protein calorie malnutrition Continue to encourage good p.o. intake. 12. Abnormal chest CT The patient had a CT angiography of the chest which revealed no evidence of pulmonary embolism. The radiologist indicated that they could not rule out an endobronchial lesion. The patient CT scan was reviewed and it was felt that this was more likely atelectasis. The family is leaning towards hospice. They will make a decision for definitively within the next week. If they put off pursuing hospice the patient should have a repeat CT scan in 3 months. - HPI History of Present Illness: From the admission HP: [id number], resident of a nursing facility, c dementia, seizure disorder, hyperlipidemia, hx of alcohol & meth abuse, and medical nonadherence who presents to the ED with report of increase confusion and acutely hypoxemic with SaO2 85% on room air at the nursing facility. There was report of fever and cough. Patient was found by EMS to have upper airway gurgling noises. Patient seen in the ED and currently no following commands and nonverbal. He is alert. In the ED, cxr is negative. no leukocytosis. patient noted to require O2 support 4-5L NC to maintain 95% SaO2. - HOSPITAL COURSE Hospital Course: The patient was admitted to the hospital. He was placed on IV Keppra. It was felt that he had aspirated and had a mild aspiration pneumonia. The patient was treated with IV Rocephin and IV Zithromax and completed 3 days of treatment here in the hospital. Overall the patient has improved. He initially was quite confused but his mentation did improve back to his cognitive baseline by the time of discharge. Initially the patient was having significant difficulty swallowing and was made NPO. But as we treated his pneumonia he improved. C urrently on a mechanical soft diet which should be continued at the facility. Discussions were had with the patients family. The patient's sister Vladimir Perry [phone] is his healthcare power of criminal defense attorney. The patient has a previous POLST that indicates that he is a full code. At this point the patient's sister would like to change this however is reluctant to make this change until she can speak to his daughter. The patient and his daughter are estranged and the patient's daughter to date has not returned any phone calls. The patient's sister requested transition to hospice at discharge and would like hospice set up at the facility. Efforts are underway to get this set up and hospice will not be able to formally start until the end of next week. The patient's sister is aware that she would need to make a decision regarding whether to pursue hospice and change his CODE STATUS prior to that time. Overall the patient is improved. He does have underlying dementia and is bedbound at baseline. His confusion has improved and according to the sister he is back to his normal self. At this point maximum hospital benefit has been reached. The patient will be discharged today in stable condition. - ALLERGIES Allergies/Adverse Reactions: Allergies Allergy/AdvReac Type Severity Reaction Status Date / Time No Known Drug Allergies Allergy Verified 02/11/24 01:40 - MEDICATIONS Home Medications: Ambulatory Orders Medication Instructions Recorded Confirmed Acetaminophen [Tylenol] 1,000 mg PO TID 02/17/23 02/11/24 Atorvastatin [Lipitor] 20 mg ORAL HS 02/17/23 02/11/24 Cholecalciferol [Vitamin D3] 25 mcg PO DAILY 02/17/23 02/11/24 Diclofenac Sodium 1% Gel [Voltaren 1 applic TOP DAILY PRN 02/17/23 02/11/24 Gel] Ferrous Sulfate [Feosol] 325 mg PO DAILY 02/17/23 02/11/24 Gabapentin [Neurontin] 300 mg PO TID 02/17/23 02/11/24 Omeprazole Magnesium 20 mg PO DAILY 02/17/23 02/11/24 Prazosin [Minipress] 2 mg PO QPM 02/17/23 02/11/24 oxyCODONE [Roxicodone] 2.5 mg ORAL BID 02/17/23 02/11/24 polyethylene glycoL 3350 [Miralax] 17 gm PO DAILY PRN 02/17/23 02/11/24 DULoxetine [Cymbalta] 30 mg PO HS 10/16/23 02/11/24 busPIRone [Buspar] 5 mg PO BID 10/16/23 02/11/24 traZODone [Desyrel] 50 mg PO HS 10/16/23 02/11/24 Loperamide HCl [Imodium A-D] 2 mg PO PRN PRN MDD 16MG 02/11/24 02/11/24 OLANZapine [Zyprexa] 2.5 mg PO DAILY PRN 02/11/24 02/11/24 OLANZapine [Zyprexa] 2.5 mg PO HS 02/11/24 02/11/24 Sennosides [Senna] 1 tab PO DAILY PRN 02/11/24 02/11/24 oxyCODONE [Roxicodone] 2.5 mg PO BID PRN 02/11/24 02/11/24 risperiDONE [Risperdal] 1 tab PO BID PRN 02/11/24 02/11/24 Aspirin Chewable [St Price 81 mg PO DAILYWM tab 02/13/24 Aspirin] Metoprolol Tartrate [Lopressor] 12.5 mg PO BID tab 02/13/24 levETIRAcetam [Keppra] 1,000 mg PO BID #240 tab 02/13/24 - PHYSICAL EXAM AT DISCHARGE General Appearance: positive: No acute distress, Alert (He is alert and oriented x 2) Eyes Bilateral: positive: Normal inspection ENT: positive: ENT inspection nml Neck: positive: Nml inspection Respiratory: positive: Chest non-tender, No respiratory distress, Breath sounds nml Cardiovascular: positive: Regular rate & rhythm, No murmur, No gallop. negative: Friction rub Abdomen: positive: Non-tender, No organomegaly, Nml bowel sounds Skin: positive: Color nml, No rash, Warm Extremities: positive: Non-tender Neurologic/Psychiatric: positive: CN's nml (2-12), Disoriented to place, Disoriented to time - LABS Result Diagrams: 02/13/24 04:30 02/13/24 04:30 - SEPSIS Current Stage of Sepsis: Ruled out (there is no leukosytosis, there is not increasing oxygen needs, there is not hypotension) - QUALITY (Female Hip Fx Only) Was patient sent home on osteoporosis medication?: No - FOLLOW UP Follow Up: The patient should follow-up with the staff MD in 1 week. Further discussions need to be had with the patient's family regarding his CODE STATUS and a POLST will need to be updated - TIME SPENT Time Spent in Discharge (Minutes): 45
--- NOTE | 2024-02-13 15:13 | CT Report ---
PROCEDURE: Head W/O Stroke Protocol INDICATIONS: Suspect acute CVA TECHNIQUE: Noncontrast 4.5 mm thick angled axial sections acquired from the foramen magnum to the vertex, with c oronal reformats. For radiation dose reduction, the following was used: automated exposure control, adjustment of mA and/or kV according to patient size. COMPARISON: CT head 08/05/2023. FINDINGS: Image quality: Diagnostic. CSF spaces: Basal cisterns are patent. No extra-axial fluid collections. Ventricles are normal in size and shape. Brain: No midline shift. No intracranial masses or hemorrhage. Mild diffuse cerebral volume loss. Periventricular and subcortical white matter hypodensities are nonspecific, most with microvascular G ray-white matter interface is normal. Skull and face: Calvarium and visualized facial bones are intact, without suspicious lesions. Sinuses: Visualized sinuses and mastoids are clear. IMPRESSION: No acute intracranial pathology Findings were discussed with ordering provider on 02/13/2024 at 3:05 PM [facility]. This study fulfills neurological imaging criteria for inclusion or exclusion of acute stroke therapie s based on available published neurological imaging guidelines. Reviewed by: Louise Valles MD, PhD on 02/13/2024 2:12 PM [facility] Approved by: Louise Valles MD, PhD on 02/13/2024 2:12 PM [facility] Station ID: [id number]
[2024-02-13] MEDS: levETIRAcetam 250 MG TABLET PO SCH (20:20)
[2024-02-14 04:38] LABS: BASOPHILS % (AUTO) 0.2 %; EOSINOPHILS % (AUTO) 0.7 %; HCT - HEMATOCRIT 33.5 % (42.0-52.0); LYMPHOCYTES # (AUTO) 2.3 10^3/uL (1.5-3.5); LYMPHOCYTES % (AUTO) 41.5 %; MEAN CORPUSCULAR HEMOGLOBIN 32.9 pg (27.0-31.0); MEAN CORPUSCULAR HGB CONC 32.8 g/dL (32.0-36.0); MEAN CORPUSCULAR VOLUME 100.3 fL (80.0-94.0); MEAN PLATELET VOLUME 10.5 fL (7.4-11.4); MONOCYTES # (AUTO) 0.4 10^3/uL (0.0-1.0); MONOCYTES % (AUTO) 6.9 %; NEUTROPHILS # (AUTO) 2.8 10^3/uL (1.5-6.6); NEUTROPHILS % (AUTO) 50.5 %; PLT - PLATELET COUNT 230 10^3/uL (130-450); RED BLOOD COUNT 3.34 10^6/uL (4.70-6.10); RED CELL DISTRIBUTION WIDTH 13.5 % (12.0-15.0); WHITE BLOOD COUNT 5.5 x10^3/uL (4.8-10.8)
[2024-02-14 04:55] LABS: ALBUMIN 3.7 g/dL (3.2-5.5); CALCIUM 8.8 mg/dL (8.5-10.3); CREATININE 0.8 mg/dL (0.6-1.3); MAGNESIUM 1.7 mg/dL (1.7-2.3); PHOSPHORUS 3.2 mg/dL (2.5-5.0); POTASSIUM 3.6 mmol/L (3.5-4.5)
--- NOTE | 2024-02-14 09:58 | Discharge Plan ---
"Discharge Plan for SNF / [facility] - Discharge Plan And Transition Orders Problem Reviewed?: Yes Disposition: 03 SNF DC/Xfer Condition: Fair Allergies and Adverse Reactions: Allergies Allergy/AdvReac Type Severity Reaction Status Date / Time No Known Drug Allergies Allergy Verified 02/11/24 01:40 Health Concerns: Worsening dementia and dysphagia Plan of Treatment: The patient will be transitioning to hospice Assessment: Stable for discharge back to his facility - SNF / [facility] Transition Orders Admit to (Facility): [facility] Dis[facility] Diagnosis: 1. Acute hypoxic respiratory failure Secondary to aspiration event and aspiration pneumonia. Resolved 2. Aspiration pneumonia The patient has completed a course of antibiotic therapy 3. Acute metabolic encephalopathy Multifactorial secondary to underlying infection and possible breakthrough seizure. Resolved. He is back to his cognitive baseline 4. Seizure disorder His Keppra has been increased to 1000 mg p.o. twice daily. He had a breakthrough seizure prompting this admission. 5. Dysphagia Somewhat improved. Continue modified diet 6. Macrocytic anemia along with iron deficiency anemia Stable. Continue ferrous sulfate 7. Hematuria The patient's family and healthcare power of urban anthropologist is leaning towards hospice which is tentatively being set up at discharge. If they change their mind further workup for this can be obtained as an outpatient 8. Positive blood culture 1 out of 2 blood cultures positive for Staph epidermidis. This is likely contaminant. No further workup 9. Hyperglycemia Improved. Likely reactive 10. History of hyperlipidemia Currently on no medical therapy 11. Mild protein calorie malnutrition Continue to encourage good p.o. intake. 12. Abnormal chest CT The patient had a CT angiography of the chest which revealed no evidence of pulmonary embolism. The radiologist indicated that they could not rule out an endobronchial lesion. The patient CT scan was reviewed and it was felt that this was more likely atelectasis. The family is leaning towards hospice. They will make a decision for definitively within the next week. If they put off pursuing hospice the patient should have a repeat CT scan in 3 months. Medicare Certification Statement: I certify [facility] is medically necessary on a continuing basis for any of the conditions for which she/he is receiving care during hospitalization. Notify PCP of admission and forward orders to primary provider for signature. Weight on admission and: Weekly Other Notification Orders: The patient will be transitioning to hospice House Bowel Program: Yes Additional Bowel Program Orders: If no BM after 2 days, nurse may give M.O.M. 30ml PO PRN and/or ducolax Supp 1 LA and/or MARTHA 250mg P.O., and/or senna 1-2 tabs PO. On day 3 nurse may give repeat above order until residents constipation is resolved. Annual Influenza Vaccine (between Apr 24 and November 21): Yes Medication Orders: PLEASE REFER TO THE DISCHARGE MEDICATION LIST. - Medications New Prescriptions: levETIRAcetam [Keppra] 1,000 mg PO BID #240 tab - Diet Type: Regular Texture: Mech soft May have monthly special meal: Yes - Therapies | Activity Rehabilitation Potential: Maintain present ADL Functional Activity: Activity as Tolerated Weight Bearing: Does not walk Follow Up: Hospice will be assuming his care"
--- NOTE | 2024-02-14 10:24 | DISCHARGE SUMMARY ---
Discharge Summary Admit Date: 02/11/24 Discharge Date: 02/14/24 Discharging Provider: Bernadette Auguste PA-C Primary Care Provider: Staff Code Status: Do Not Attempt Resuscitation Condition at Discharge: Fair Discharge Disposition: 03 SNF DC/Xfer Discharge Facility Name: [facility] - DIAGNOSES Discharge Diagnoses with Status of Each Condition: 1. Acute hypoxic respiratory failure Secondary to aspiration event and aspiration pneumonia. Resolved 2. Aspiration pneumonia The patient has completed a course of antibiotic therapy 3. Acute metabolic encephalopathy Multifactorial secondary to underlying infection and possible breakthrough seizure. His encephalopathy initially resolved. He was discharged yesterday and prior to leaving the hospital he had an episode of unresponsiveness. The nurse was only gone from the room for a few minutes and came back and he was unresponsive. Initially it was felt that the patient possibly could have had an acute CVA. He did have some right facial droop at the time. A stat CT scan was unremarkable. Over the next couple of hours the patient woke up and his mentation returned slowly to baseline. Cannot rule out that he possibly had another seizure.At this point the patient's family is requesting hospice at discharge. No further workup and would treat supportively should this happen again. 4. Seizure disorder His Keppra has been increased to 1000 mg p.o. twice daily. He had a breakthro ugh seizure prompting this admission. Possibly had another seizure yesterday afternoon. Continue increased dose of Keppra 5. Dysphagia Somewhat improved. Continue modified diet 6. Macrocytic anemia along with iron deficiency anemia Stable. Continue ferrous sulfate 7. Hematuria The patient's family and healthcare power of trimmer meat is leaning towards hospice which is tentatively being set up at discharge. If they change their mind further workup for this can be obtained as an outpatient 8. Positive blood culture 1 out of 2 blood cultures positive for Staph epidermidis. This is likely contaminant. No further workup 9. Hyperglycemia Improved. Likely reactive 10. History of hyperlipidemia Currently on no medical therapy 11. Mild protein calorie malnutrition Continue to encourage good p.o. intake. 12. Abnormal chest CT The patient had a CT angiography of the chest which revealed no evidence of pulmonary embolism. The radiologist indicated that they could not rule out an endobronchial lesion. The patient CT scan was reviewed and it was felt that this was more likely atelectasis. The family is leaning towards hospice. They will make a decision for definitively within the next week. If they put off pursuing hospice the patient should have a repeat CT scan in 3 months. - HPI History of Present Illness: From the admission HP: [id number], resident of a nursing facility, c dementia, seizure disorder, hyperlipidemia, hx of alcohol & meth abuse, and medical nonadherence who presents to the ED with report of increase confusion and acutely hypoxemic with SaO2 85% on room air at the nursing facility. There was report of fever and cough. Patient was found by EMS to have upper airway gurgling noises. Patient seen in the ED and currently no following commands and nonverbal. He is alert. In the ED, cxr is negative. no leukocytosis. patient noted to require O2 support 4-5L NC to maintain 95% SaO2. - HOSPITAL COURSE Hospital Course: The patient was admitted to the hospital. He was placed on IV Keppra. It was felt that he had aspirated and had a mild aspiration pneumonia. The patient was treated with IV Rocephin and IV Zithromax and completed 3 days of treatment here in the hospital. Overall the patient has improved. He initially was quite confused but his mentation did improve back to his cognitive baseline by the time of discharge. Initially the patient was having significant difficulty swallowing and was made NPO. But as we treated his pneumonia he improved. Currently on a mechanical soft diet which should be continued at the facility. Yesterday afternoon the patient had another episode of unresponsiveness. Stat CT scan was unremarkable. Cannot rule out that the patient possibly had another breakthrough seizure although there was no witnessed seizure activity. Over the next couple of hours the patient woke up and his mentation improved and this morning he is back to his cognitive baseline. During the course of this hospitalization discussions were had with the patient's family. The patient's sister Vladimir Perry [phone] is his healthcare power of trimmer meat. The patient has a previous POLST that indicates that he is a full code. However the family has discussed his situation and have changed his CODE STATUS to DO NOT RESUSCITATE. The family also is requesting that hospice be set up at the facility at discharge. They do not want any aggressive care or workup going forward. They would like to manage his symptoms and keep the patient comfortable and maximize his quality of life. They do not want him coming back to the hospital unless it is for difficult to control end-of-life issues. A new POLST has not been filled out at this point as there has been no family members at the hospital to sign and this will need to be updated at the facility. At this point the patient is back to his baseline and desires to go back to his facility. He will be transferred back to [facility] this afternoon in stable condition. - ALLERGIES Allergies/Adverse Reactions: Allergies Allergy/AdvReac Type Severity Reaction Status Date / Time No Known Drug Allergies Allergy Verified 02/11/24 01:40 - MEDICATIONS Home Medications: Ambulatory Orders Medication Instructions Recorded Confirmed Acetaminophen [Tylenol] 1,000 mg PO TID 02/17/23 02/11/24 Atorvastatin [Lipitor] 20 mg ORAL HS 02/17/23 02/11/24 Cholecalciferol [Vitamin D3] 25 mcg PO DAILY 02/17/23 02/11/24 Diclofenac Sodium 1% Gel [Voltaren 1 applic TOP DAILY PRN 02/17/23 02/11/24 Gel] Ferrous Sulfate [Feosol] 325 mg PO DAILY 02/17/23 02/11/24 Gabapentin [Neurontin] 300 mg PO TID 02/17/23 02/11/24 Omeprazole Magnesium 20 mg PO DAILY 02/17/23 02/11/24 Prazosin [Minipress] 2 mg PO QPM 02/17/23 02/11/24 oxyCODONE [Roxicodone] 2.5 mg ORAL BID 02/17/23 02/11/24 polyethylene glycoL 3350 [Miralax] 17 gm PO DAILY PRN 02/17/23 02/11/24 DULoxetine [Cymbalta] 30 mg PO HS 10/16/23 02/11/24 busPIRone [Buspar] 5 mg PO BID 10/16/23 02/11/24 traZODone [Desyrel] 50 mg PO HS 10/16/23 02/11/24 Loperamide HCl [Imodium A-D] 2 mg PO PRN PRN MDD 16MG 02/11/24 02/11/24 OLANZapine [Zyprexa] 2.5 mg PO DAILY PRN 02/11/24 02/11/24 OLANZapine [Zyprexa] 2.5 mg PO HS 02/11/24 02/11/24 Sennosides [Senna] 1 tab PO DAILY PRN 02/11/24 02/11/24 oxyCODONE [Roxicodone] 2.5 mg PO BID PRN 02/11/24 02/11/24 risperiDONE [Risperdal] 1 tab PO BID PRN 02/11/24 02/11/24 Aspirin Chewable [St Price 81 mg PO DAILYWM tab 02/13/24 Aspirin] Metoprolol Tartrate [Lopressor] 12.5 mg PO BID tab 02/13/24 levETIRAcetam [Keppra] 1,000 mg PO BID #240 tab 02/13/24 - PHYSICAL EXAM AT DISCHARGE General Appearance: positive: No acute distress, Alert Eyes Bilateral: positive: Normal inspection ENT: positive: ENT inspection nml Neck: positive: Nml inspection Respiratory: positive: Chest non-tender, No respiratory distress, Breath sounds nml Cardiovascular: positive: Regular rate & rhythm, No murmur, No gallop. negative: Friction rub Abdomen: positive: Non-tender, No organomegaly, Nml bowel sounds Skin: positive: Color nml, No rash, Warm Extremities: positive: Non-tender Neurologic/Psychiatric: positive: CN's nml (2-12), Disoriented to place, Disoriented to time - LABS Result Diagrams: 02/14/24 04:27 02/14/24 04:27 - SEPSIS Current Stage of Sepsis: Ruled out (there is no leukosytosis, there is not increasing oxygen needs, there is not hypotension) - QUALITY (Female Hip Fx Only) Was patient sent home on osteoporosis medication?: No (N/A) - FOLLOW UP Follow Up: Hospice will be assuming care. Staff MD until hospice can be set up - TIME SPENT Time Spent in Discharge (Minutes): 45
[2024-02-14 13:12] VITALS: BP 131/67; O2SAT 96
== END 2024-02-14 14:20 | DRG 177 ==
LOC: EDUNIT# → ED 01:15 → MS2 02:23
PROVIDERS: ADMIT Internal Medicine; ATTEND Physician Assistant
DX: A41.9 Sepsis, unspecified organism (principal); R09.02 Hypoxemia; J69.0 Pneumonitis due to inhalation of food and vomit; G93.41 Metabolic encephalopathy; I45.10 Unspecified right bundle-branch block; Z20.818 Contact with and (suspected) exposure to other bacterial communicable diseases; Z20.822 Contact with and (suspected) exposure to COVID-19; Z20.828 Contact with and (suspected) exposure to other viral communicable diseases; J96.01 Acute respiratory failure with hypoxia; E44.1 Mild protein-calorie malnutrition; G40.909 Epilepsy, unspecified, not intractable, without status epilepticus; R13.10 Dysphagia, unspecified; D50.9 Iron deficiency anemia, unspecified; D53.9 Nutritional anemia, unspecified; R31.9 Hematuria, unspecified; R73.9 Hyperglycemia, unspecified; R91.8 Other nonspecific abnormal finding of lung field; F03.90 Unspecified dementia, unspecified severity, without behavioral disturbance, psychotic disturbance, mood disturbance, and anxiety; R29.810 Facial weakness; R40.4 Transient alteration of awareness; I10 Essential (primary) hypertension; Z66 Do not resuscitate; Z68.21 Body mass index [BMI] 21.0-21.9, adult; Z74.01 Bed confinement status; Z79.82 Long term (current) use of aspirin; Z79.899 Other long term (current) drug therapy; Z86.39 Personal history of other endocrine, nutritional and metabolic disease; Z91.199 Patient's noncompliance with other medical treatment and regimen due to unspecified reason
CPT/HCPCS: 36415; 70450; 71045; 71275; 80053; 80069; 81001; 82803; 83605; 83735; 83880; 84145; 84443; 84484; 85025; 85027; 85379; 87040; 87154; 87181; 87633; 87640; 93005; 94640; 97162; 97166; 99285; A9270; J7040; Q9967; 87081; 87086

== ENCOUNTER 2024-02-14 14:19 | Outpatient (CLI) | payer MEDICARE, MEDICAID | END 2024-02-14 23:59 | disposition home or self-care (01) | LOC: EMS 14:19 | PROVIDERS: ATTEND Physician Assistant | DX: R41.0 Disorientation, unspecified (principal); Z74.01 Bed confinement status; R53.1 Weakness; F03.90 Unspecified dementia, unspecified severity, without behavioral disturbance, psychotic disturbance, mood disturbance, and anxiety; R09.02 Hypoxemia; A41.9 Sepsis, unspecified organism | CPT/HCPCS: A0425; A0428 ==